=== PATIENT | female | born 1980 | race Caucasian/White ===

== ENCOUNTER 2018-04-12 18:06 | Emergency (ER) | payer MEDICAID, SELFPAY ==
[2018-04-12 18:18] VITALS: BP 162/104; PULSE 88; RESP 16; TEMP 36.7; O2SAT 96
--- NOTE | 2018-04-12 18:45 | ED.GENADUL_ITS ---
Discharge Plan Disposition Patient Disposition: HOME Condition: Improving Discharge Details Chief Complaint: Headache Clinical Impression: Headache, Witnessed seizure-like activity, Hypokalemia, Hypomagnesemia Reason For Visit: head ache Primary Care Provider: Elizabeth Benton ED Provider: Dale Walden Home Meds and New Rx's Prescriptions: Continued pantoprazole [Protonix] 20 MG tablet,delayed release (DR/EC) 40 mg PO DAILY RF: 0 zolpidem 10 MG tablet 10 mg PO HS PRN PRNRF: 0 Vyvanse 30 MG capsule 30 mg PO DAILY RF: 0 No Action verapamil 120 mg tablet extended release 120 mg PO DAILY Qty: 30 RF: 5 prochlorperazine maleate 5 mg tablet See Rx Instructions PO Q8H PRN Qty: 60 RF: 0 diazepam [Valium] 5 mg tablet 5 mg PO PRN PRN (Reason: sleep) Qty: 2 RF: 0 aripiprazole [Abilify] 10 mg tablet 15 mg PO HS RF: 0 ranitidine HCl 300 mg capsule 300 mg PO DAILY RF: 0 oxycodone 10 mg tablet 10 mg PO BID RF: 0 Narcan 4 mg/actuation spray,non-aerosol 1 spray LOGAN ONCE PRNRF: 0 Discharge Instructions Instructions: Hypokalemia (ED), Hypomagnesemia (ED), New-Onset Seizure in Adults (ED), General Headache (ED) Additional Instructions: No driving or operating heavy machinery until cleared to do so by your doctor or neurology. Please contact your primary care physician to arrange follow-up. Please follow-up with neurology. Call for an appointment. Return to the ER for any worsening or new concerning symptoms. Referrals: Elizabeth Benton [Primary Care Provider] - Kasey Quintanilla MD [ [facility] STAFF PHYSICIAN] - Discharge Data Discharge Date/Time-TO BE ENTERED AT DEPARTURE: 04/13/18 00:47 Medical Decision Making <Gilberto Berg MD - Last Filed: 05/11/18 21:44> 18:43 --38-year-old female here with headache for the the past 1.5 weeks after seizure like episode. No prior history of seizure. Consider mass vs less likely hemorrhage vs other. Plan to CT head. --CT reviewed and interpreted by me: Normal sinus rhythm 73 bpm, normal axis, nondiagnostic. 20:00 --CT head interpreted by radiology: No acute intracranial findings. --Labs reviewed and patient noted to have hypomagnesemia and hypokalemia. Patient to be given magnesium 2 g IV and potassium 20 mEq IV and 20 mEq orally. Patient was given Tylenol for headache. 22:53 --Patient was reassessed and notes headache resolved. 23:30 -- Patient reassessed and remains stable. Plan for repeat BMP after potassium infusion. <Dale Walden MD - Last Filed: 04/13/18 00:44> Received signout from Dr. Berg. Please see his note regarding details of initial history and medical decision making. Patient's potassium improved, she subjectively felt better. She will be discharged home. HPI <Gilberto Berg MD - Last Filed: 05/11/18 21:44> General Mode of arrival: ambulatory . Date/Time Provider Initiated Documentation: 04/12/18 18:26 . Limitations to Documentation: no limitations . Information obtained by: patient . HPI Narrative: 38-year-old female with multiple medical problems including history in the computer of anxiety, depression, conversion disorder, neuralgia, asthma, seen in the ED in the past for headache, presents with chief complaint of headache. Patient notes that about a week and a half ago, while in the shower she was observed to suddenly lose consciousness and have generalized full body shaking. Her significant other assisted her. She was unconscious for a couple minutes and then confused when she came to. She notes she has had persistent headache over the past week and a half since the seizure-like activity. She has had associated nausea and vomiting. She notes she is not able to tolerate any oral intake other than cheese puffs, she notes that she feels groggy. Headache is localized to the left frontal. Pain is moderate. No modifiers. No associated neck pain or stiffness. No fever. No rash. No CP or palpitations. No SOB. Related Data Home Medications Medication Instructions Recorded Confirmed pantoprazole [Protonix] 40 mg PO DAILY 10/01/16 04/22/18 Vyvanse 30 mg PO DAILY 05/26/17 04/22/18 zolpidem 10 mg PO HS PRN PRN 05/26/17 04/22/18 aripiprazole 10 mg tablet 15 mg PO HS tab 04/19/18 04/22/18 naloxone 4 mg/actuation nasal spray 1 spray LOGAN ONCE PRN 04/19/18 04/22/18 oxycodone 10 mg tablet 10 mg PO BID tab 04/19/18 04/22/18 ranitidine 300 mg capsule 300 mg PO DAILY 04/19/18 04/22/18 diazepam 5 mg tablet 5 mg PO PRN PRN #2 tab 04/22/18 04/22/18 prochlorperazine maleate 5 mg See Rx Instructions PO Q8H PRN #60 04/22/18 04/22/18 tablet tab verapamil ER (SR) 120 mg 120 mg PO DAILY #30 tab 04/22/18 04/22/18 tablet,extended release Previous Rx's Medication Instructions Recorded diazepam 5 mg tablet 5 mg PO PRN PRN #2 tab 04/22/18 prochlorperazine maleate 5 mg See Rx Instructions PO Q8H PRN #60 04/22/18 tablet tab verapamil ER (SR) 120 mg 120 mg PO DAILY #30 tab 04/22/18 tablet,extended release Allergies Allergy/AdvReac Type Severity Reaction Status Date / Time prednisone Allergy Intermediate Unverified 04/12/18 18:21 codeine AdvReac Mild Nausea Unverified 04/12/18 18:21 morphine AdvReac Mild Nausea Unverified 04/12/18 18:21 tramadol HCl [From Ultram] AdvReac Mild Nausea Unverified 04/12/18 18:21 tegaderm tape AdvReac Intermediate ariza my Uncoded 04/12/18 18:21 skin General Stated Complaint: Headache JOEL: 2 Review of Systems <Gilberto Berg MD - Last Filed: 05/11/18 21:44> Constitutional Reports as per HPI and Denies fever(s) Neurologic Reports as per HPI PFSH <Gilberto Berg MD - Last Filed: 05/11/18 21:44> Medical History ADD (attention deficit disorder) Abdominal pain Active asthma Affective bipolar disorder Amenorrhea CVA tenderness Causalgia of left upper extremity Cervical disc disease Chest pain at rest Chronic insomnia Chronic wrist pain Cold sore Conversion disorder Depression with anxiety Dizziness Essential tremor Gastritis Carcamo sign present Hydronephrosis Hyperreflexia Kidney stones Knee pain Left-sided thoracic back pain Memory loss Migraines Neuralgia Numbness and tingling Rectal bleeding Right arm weakness Speech problem Upper respiratory infection Ureteral calculi Surgical History Repair of umbilical hernia Social History household members: significant other and children number of children: 1 current occupational status: disabled Smoking and Tabacco status: Current every day tobacco type: cigarettes alcohol intake: never substance use type: does not use Exam <Gilberto Berg MD - Last Filed: 05/11/18 21:44> Const General: cooperative and no acute distress HENMT Head: normocephalic and atraumatic Mouth: moist mucous membranes Eyes Conjunctivae: normal conjunctivae Sclera: normal sclerae EOM: EOM intact bilaterally Neck Neck: trachea midline and supple Resp Auscultation: clear to auscultation bilaterally, no rales, no rhonchi and no wheezes Cardio Jugular venous pressure: no JVD Rate: regular rate and not tachycardic Rhythm: regular rhythm GI Palpation: soft, not firm, no guarding, no masses, not rigid and nontender Skin General skin exam: no rashes or lesions noted Neuro General: alert, awake, oriented x3 and tone normal Cranial Nerves: CN's II-XI intact bilaterally Cognition: normal cognition Speech: speech normal Gait: normal gait Motor: muscle tone normal throughout and strength 5/5 throughout Sensory Exam: no sensory deficits noted Other: tremor intermittent bilateral hands (patient notes chronic) Extrem General: no edema Psych Appearance: grossly normal Mental Status: mental status grossly normal Speech and Movement: speech and movement normal Course <Gilberto Berg MD - Last Filed: 05/11/18 21:44> Vital Signs Temperature 36.7 C 04/12/18 18:18 Pulse 88 04/12/18 18:18 Respiratory Rate 16 04/12/18 18:18 Blood Pressure 162/104 H 04/12/18 18:18 Pulse Oximetry 96 04/12/18 18:18 Temperature 36.7 C 04/12/18 18:18 Temperature Source Temporal Artery Scan 04/12/18 18:18 Pulse 88 04/12/18 18:18 Respiratory Rate 16 04/12/18 18:18 Blood Pressure 162/104 H 04/12/18 18:18 Pulse Oximetry 96 04/12/18 18:18 Oxygen Delivery Method Room Air 04/12/18 18:18 Oxygen Flow Rate 0 04/12/18 18:18 Sign Out <Gilberto Berg MD - Last Filed: 05/11/18 21:44> Sign Out Data: Sign Out Comment: Care signed out to Dr. Walden. Plan to follow-up on repeat BMP. If electrolytes improved, plan for close outpatient follow-up. Patient has scheduled followup this week. Given recent seizure like activity, will recommend outpatient neuro follow-up. Last updated by Gilberto Berg MD at 04/12/18 23:48
--- NOTE | 2018-04-12 19:35 | DI.CT_ITS ---
SYMPTOMS/DIAGNOSIS: LEFT FRONTAL PAIN, HEADACHE, SEIZURE 1-1/2 WEEKS AGO WITH WORSENING TREMORS SINCE NONCONTRAST HEAD CT: No intracranial hemorrhage, mass or infarct is seen. There is no evidence of skull fracture. The ventricles are normal in size. The sinuses and mastoid air cells appear clear where visualized. The orbits are unremarkable. IMPRESSION: Negative head CT.
--- NOTE | 2018-04-12 19:52 | DI.VRAD_ITS ---
EXAM: CT Head Without Contrast EXAM DATE/TIME: 04/12/2018 6:35 PM CLINICAL HISTORY: 38 years old, female; Pain; Headache; Headache not specified; Patient HX: Left frontal headache since seizure a week and a half ago, known tremors worsening since seizure TECHNIQUE: Axial computed tomography images of the head/brain without contrast. All CT scans at this facility use at least one of these dose optimization techniques: automated exposure control; mA and/or kV adjustment per patient size (includes targeted exams where dose is matched to clinical indication); or iterative reconstruction. Coronal and sagittal reformatted images were created and reviewed. COMPARISON: CT HEAD WITHOUT CONTRAST 12/20/2014 2:47 PM FINDINGS: There is no intracranial hemorrhage. There is no mass effect or midline shift. The ventricles and sulci are appropriate in size and configuration for age. Normal mendoza white differentiation. The calvarium is intact. IMPRESSION: No acute intracranial findings. Dictated and Authenticated by: Nilo Verde MD. Ordering:CARMEL Macias MD
[2018-04-12 19:59] LABS: Abs Immature Grans 0.01 k/cumm (0.0-0.09); Absolute Basophil Count 0.03 k/cumm (0.0-0.2); Absolute Eosinophil Count 0.31 k/cumm (0.0-0.7); Absolute Lymphocyte Count 2.76 k/cumm (1.2-3.4); Absolute Monocyte Count 0.79 k/cumm (0.11-0.7); Absolute Neutrophil Count 5.88 k/cumm (1.2-6.7); Basophils % 0.3; Eosinophils % 3.2; HCT 41.1 % (36.0-46.0); HGB 13.8 g/dL (12.0-15.5); Immature Grans % 0.1; Lymphocytes % 28.2; Mean Corp. HGB Concentration 33.6 g/dL (32.0-36.0); Mean Corpuscular Hemoglobin 30.5 pg (27.0-33.0); Mean Corpuscular Volume 90.7 fL (80-95); Mean Platelet Volume 10.2 fL (8.0-11.0); Monocytes % 8.1; Neutrophils % 60.1; Platelet Count 279 x1000/uL (130-400); RBC 4.53 m/cumm (4.00-5.20); RBC Distribution Width 13.1 % (11.7-14.6); White Blood Cell Count 9.78 k/cumm (4.4-10.8)
[2018-04-12 20:09] LABS: ALT 37 U/L (12-78); AST 26 U/L (15-37); Albumin 3.5 g/dL (3.4-5.0); Alkaline Phosphatase 94 U/L (46-116); Anion Gap 10.8 mmol/L (3-11); BUN 10 mg/dL (7-18); Bilirubin, Total 0.4 mg/dL (0.2-1.0); CO2 28.2 mmol/L (21.0-32.0); CREATININE 1.08 mg/dL (0.55-1.02); Calcium 9.6 mg/dL (8.5-10.1); Chloride 105 mmol/L (98-107); Estimated GFR 56.19 (mL/min/1.73m2); Glucose 93 mg/dL (70-100); Magnesium 1.5 mg/dL (1.8-2.4); Sodium 144 mmol/L (136-145); Total Protein 7.4 g/dL (6.4-8.2)
[2018-04-12 20:15] LABS: Potassium 2.8 mmol/L (3.5-5.1)
[2018-04-12 20:21] LABS: Bilirubin Small (Negative); Blood Negative (Negative); Clarity Clear; Glucose Negative (Negative); Ketones Trace mg/dL (Negative); Leukocyte Esterase Negative (Negative); Nitrite Negative (Negative); Specific Gravity >= 1.030 (1.005-1.025); Urobilinogen 0.2 EU/dL (Up TO 0.2)
[2018-04-12 20:33] LABS: Bacteria Moderate HPF (Negative); C & S Indicated? No/Sq. Contamination; Casts Negative LPF (Negative); Crystals Negative HPF (Negative); Epithelial Cells Many HPF (Negative); Mucus Negative (Negative); RBC Negative (0-2); WBC 20-50 HPF (0-5)
[2018-04-12 20:40] LABS: *AMPHETAMINES SCREEN URINE Negative (Negative); *BARBITURATES SCREEN URINE Negative (Negative); *BENZODIAZEPINES SCREEN URINE Negative (Negative); Cannabinoids THC Negative (Negative); Cocaine Screen,Urine Negative (Negative); METHADONE URINE SCREEN Negative (Negative); OPIATES URINE SCREEN POSITIVE (Negative)
[2018-04-12 20:41] LABS: Tricyclic Antidepressants POSITIVE (Negative)
[2018-04-12] MEDS: MAGNESIUM SULFATE 2 GM/50 ML BAG IVPB (20:42)
[2018-04-12] MEDS: Potassium Chloride 10 MEQ TABCR 20 MEQ PO (21:44)
[2018-04-12] MEDS: Acetaminophen 325 MG TAB 650 MG PO (21:44)
[2018-04-12] MEDS: POTASSIUM CHLORIDE 20 MEQ/100 ML BAG 50 MEQ IVPB (21:44)
[2018-04-13 00:32] LABS: Anion Gap 11.1 mmol/L (3-11); BUN 9 mg/dL (7-18); CO2 26.9 mmol/L (21.0-32.0); CREATININE 1.07 mg/dL (0.55-1.02); Calcium 9.1 mg/dL (8.5-10.1); Chloride 105 mmol/L (98-107); Glucose 102 mg/dL (70-100); Potassium 3.1 mmol/L (3.5-5.1); Sodium 143 mmol/L (136-145)
[2018-04-13 00:45] VITALS: PULSE 88; RESP 16; TEMP 36.9; O2SAT 99
--- NOTE | 2018-04-13 09:15 | PDOC.ERCMPRO ---
Care Management Progress Note 04/13-Dr. Estevan Berg requested assistance with a neurology f/u as soon as possible for new onset seizures. Referral faxed to [facility] Neurology this am.
== END 2018-04-13 00:47 | disposition home or self-care (01) ==
PROVIDERS: Student in an Organized Health Care Education/Training Program; Emergency Provider Emergency Medicine; PCP Physician Assistant Medical
DX: R51 Headache (principal); R56.9 Unspecified convulsions; E87.6 Hypokalemia; E83.42 Hypomagnesemia
CPT/HCPCS: 80048; 80053; 80307; 96365; 96366; 96368; 99284; 70450; 81003; 81015; 83735; 85025; J3480

== ENCOUNTER 2018-05-04 01:15 | Outpatient (CLI) | payer MEDICAID, SELFPAY ==
--- NOTE | 2018-05-11 14:33 | PDOC.EEG ---
EEG: [facility] Department of Neurology EEG REPORT Date of Recordin05/04/18 Interpreting Physician: Dr. Kasey Quintanilla PCP/Referring Provider: JO Lyle Reason for study: Ms. Jhaveri is a 38 year-old woman with a recent event with loss of consciousness concerning for seizure. Current Medications: pantoprazole [Protonix] 40 mg PO DAILY 10/01/16 Vyvanse 30 mg PO DAILY 05/26/17 zolpidem 10 mg PO HS PRN PRN 05/26/17 aripiprazole 10 mg tablet 15 mg PO HS tab 04/19/18 naloxone 4 mg/actuation nasal spray 1 spray LOGAN ONCE PRN 04/19/18 oxycodone 10 mg tablet 10 mg PO BID tab 04/19/18 ranitidine 300 mg capsule 300 mg PO DAILY 04/19/18 diazepam 5 mg tablet 5 mg PO PRN PRN #2 tab 04/22/18 prochlorperazine maleate 5 mg tablet See Rx Instructions PO Q8H PRN #60 tab 04/22/18 verapamil ER (SR) 120 mg tablet,extended release 120 mg PO DAILY #30 tab 04/22/18 METHODS: A 21 channel digitized electroencephalogram was performed in the [facility] Clinical Neurophysiology Laboratory. The 10/20 international system of electrode placement was used and bipolar and referential electrode montages were recorded. In addition to EEG the patient was monitored for EKG and lateral/vertical eye movements. Activation procedures of photic stimulation and hyperventilation were performed if applicable. Video was used during activation procedures and during events where applicable. The duration of the recording was 30 minutes. DESCRIPTION OF EEG: The patient was noted to be awake and drowsy during the recording. During maximal wakefulness a 9-Hz posterior background rhythm was present which was well-modulated, symmetrical, reactive to eye opening, and of moderate voltage. With eye opening the background activity changed to a low voltage mixture of alpha, beta, and occasional theta range frequencies. Faster frequencies were present in the bilateral anterior head regions. There was a normal anterior-posterior voltage gradient. During drowsiness, there was attenuation of the posterior dominant background rhythm and vertex waves. No stage II sleep was recorded. There were rare, poorly formed, right temporal (T4) sharp waves that were not clearly epileptiform. Activating Procedures: Photic stimulation was performed which produced no posterior driving response. Hyperventilation was performed with moderate effort and produced no physiological slowing of the background. EKG: EKG revealed normal sinus rhythm. INTERPRETATION: This EEG is normal during the awake and drowsy states as well as during photic stimulation and hyperventilation. PRIOR EEG: none CLINICAL CORRELATION: No focal regions of cerebral dysfunction or epileptiform activity was present. No sleep was recorded during the study which reduces the sensitivity of the exam. If seizure remains a part of the differential, consider a repeat sleep-deprived EEG or overnight ambulatory EEG. Epilepsy remains a clinical diagnosis and a normal EEG does not rule out epilepsy. Clinical correlation is advised. Kasey Quintanilla MD
== END 2018-05-04 01:35 ==
PROVIDERS: PCP Physician Assistant Medical; Visit Provider Psychiatry & Neurology Neurology
DX: R68.89 Other general symptoms and signs (principal)

== ENCOUNTER 2018-05-14 00:05 | Outpatient (CLI) | payer MEDICAID, SELFPAY ==
--- NOTE | 2018-05-14 09:21 | DI.MRI_ITS ---
SYMPTOMS/DIAGNOSIS: NEW SEIZURES, UNSPECIFIED CONVULSIONS, R56.9 BRAIN MRI: The examination was conducted according to the usual protocol without contrast. Review of the multi planar sequences reveals no signal abnormality involving the infra/supratentorial portions of the brain. The ventricles are normal and a normal flow void is noted in the carotid vessels. SUMMARY: Normal Brain MRI.
== END 2018-05-14 00:25 ==
PROVIDERS: PCP Physician Assistant Medical; Visit Provider Psychiatry & Neurology Neurology
DX: R56.9 Unspecified convulsions (principal)
CPT/HCPCS: 70551; 95816

== ENCOUNTER 2018-07-17 21:04 | Emergency (ER) | payer MEDICAID, SELFPAY ==
[2018-07-17 21:11] VITALS: BP 169/126; PULSE 94; RESP 18; TEMP 36.6; O2SAT 98
[2018-07-17 21:29] VITALS: RESP 18
--- NOTE | 2018-07-17 21:34 | DI.CT_ITS ---
SYMPTOMS/DIAGNOSIS: LEFT > RIGHT FLANK PAIN RENAL COLIC CT: Comparison is made with May,. There are tiny nonobstructing bilateral renal calculi, right greater than left. There is mild dilatation of the right ureter. No ureteral calcification is seen. This could be secondary to a recently passed stone. The urinary bladder is nearly empty. There is a small right ovarian cyst. Small uterine fibroids are noted. The liver shows fatty infiltration. The patient is status post cholecystectomy. The spleen, pancreas and adrenals are unremarkable. There has been a prior midline abdominal hernia repair. No bowel dilatation or inflammatory changes are seen. The patient is status post appendectomy. There is no free air or free fluid. IMPRESSION: Minimal right hydronephrosis. The findings could be secondary to a recently passed stone. There are tiny bilateral nonobstructing calculi, significantly decreasing when compared with the previous exam.
--- NOTE | 2018-07-17 21:37 | ED.GENADUL_ITS ---
Discharge Plan Disposition Patient Disposition: HOME Condition: Improving Discharge Details Chief Complaint: GenMedical Clinical Impression: Urinary tract infection Primary Care Provider: Elizabeth Benton ED Provider: Dale Walden Home Meds and New Rx's Prescriptions: New cephalexin 500 mg capsule 500 mg PO TID 7 Days Qty: 21 RF: 0 Continued verapamil 120 mg tablet extended release 120 mg PO DAILY Qty: 30 RF: 5 prochlorperazine maleate 5 mg tablet See Rx Instructions PO Q8H PRN Qty: 60 RF: 0 aripiprazole [Abilify] 10 mg tablet 15 mg PO HS RF: 0 ranitidine HCl 300 mg capsule 300 mg PO DAILY RF: 0 oxycodone 10 mg tablet 5 mg PO BID RF: 0 Narcan 4 mg/actuation spray,non-aerosol 1 spray LOGAN ONCE PRNRF: 0 pantoprazole [Protonix] 20 MG tablet,delayed release (DR/EC) 40 mg PO DAILY RF: 0 alprazolam [Xanax] 1 mg Tablet 1 mg PO HS RF: 0 zolpidem 10 MG tablet 10 mg PO HS PRN PRNRF: 0 Vyvanse 30 MG capsule 30 mg PO DAILY RF: 0 Discharge Instructions Instructions: Urinary Tract Infection in Women (ED) Additional Instructions: Small, frequent sips of fluids to maintain hydration. Return if you have increasing pain, vomiting, or any other acute concerns. May continue your medications. Including your previously prescribed oxycodone. Take antibiotics as prescribed. Medical Decision Making 38-year-old female presents from home with left greater than right flank pain. Began hours ago. She is a history of kidney stones and is been followed by Dr. Ross. She is in some distress but afebrile. Differential diagnosis includes renal colic, pyelonephritis, other pathology including bowel obstruction. IV placed, labs obtained, patient given fluids and analgesic. She is referred for imaging. Labs reveal a white blood cell count of 11, otherwise unremarkable hematocrit and platelets. Chemistries with mild hypokalemia which she has had chronically. Urinalysis with small blood, large leuk esterase, negative nitrates, greater than [address] images reveal punctate nonobstructing right renal calculi. There is minimal right hydronephrosis questionably from recently passed stone or possibly a small stone in the distal ureter per radiology. Most consistent with acute infectious symptoms. Patient given a dose of ceftriaxone and will place her on oral antibiotics. She understands return precautions. She is stable and improved. HPI General Mode of arrival: ambulatory . Date/Time Provider Initiated Documentation: 07/17/18 21:29 . Limitations to Documentation: no limitations . Information obtained by: patient . History of Present Illness 38 year old F presents to the emergency department with the chief complaint of Left flank pain over hours today, described as moderate, and is localized to the back and left. Patient reports no radiation. Patient started experiencing this hour(s) and it has been intermittent. No relieving factors improve symptom(s), No exacerbating factors reported . Patient notes other (Nauseated without vomiting). Patient did receive the following treatments prior to arrival, none Related Data Home Medications Medication Instructions Recorded Confirmed pantoprazole [Protonix] 40 mg PO DAILY 10/01/16 07/17/18 Vyvanse 30 mg PO DAILY 05/26/17 04/22/18 zolpidem 10 mg PO HS PRN PRN 05/26/17 07/17/18 aripiprazole 10 mg tablet 15 mg PO HS tab 04/19/18 04/22/18 naloxone 4 mg/actuation nasal spray 1 spray LOGAN ONCE PRN 04/19/18 07/17/18 oxycodone 10 mg tablet 5 mg PO BID tab 04/19/18 07/17/18 ranitidine 300 mg capsule 300 mg PO DAILY 04/19/18 07/17/18 prochlorperazine maleate 5 mg See Rx Instructions PO Q8H PRN #60 04/22/18 07/17/18 tablet tab verapamil ER (SR) 120 mg 120 mg PO DAILY #30 tab 04/22/18 07/17/18 tablet,extended release alprazolam [Xanax] 1 mg PO HS 07/17/18 07/17/18 cephalexin 500 mg PO TID 7 Days #21 cap 07/17/18 Previous Rx's Medication Instructions Recorded prochlorperazine maleate 5 mg See Rx Instructions PO Q8H PRN #60 04/22/18 tablet tab verapamil ER (SR) 120 mg 120 mg PO DAILY #30 tab 04/22/18 tablet,extended release cephalexin 500 mg PO TID 7 Days #21 cap 07/17/18 Allergies Allergy/AdvReac Type Severity Reaction Status Date / Time prednisone Allergy Intermediate Unverified 07/17/18 21:14 codeine AdvReac Mild Nausea Unverified 07/17/18 21:14 morphine AdvReac Mild Nausea Unverified 07/17/18 21:14 tramadol HCl [From Ultram] AdvReac Mild Nausea Unverified 07/17/18 21:14 tegaderm tape AdvReac Intermediate ariza my Uncoded 07/17/18 21:14 skin General Stated Complaint: GenMedical JOEL: 3 Review of Systems Review of Systems No fever. Continues to urinate. No fall or injury. 8 systems reviewed and otherwise neg [facility] Medical History Chronic pain (Chronic) Depression with anxiety Chronic insomnia ADD (attention deficit disorder) Affective bipolar disorder Conversion disorder Gastritis Bilateral kidney stones (Acute) Headache, chronic migraine without aura (Chronic) Chronic headache (Chronic) Medication overuse headache (Chronic) Psychogenic tremor (Chronic) Abdominal pain (Resolved) CVA tenderness (Resolved) Causalgia of left upper extremity (Resolved) Chest pain at rest (Resolved) Chronic wrist pain (Resolved) Cold sore (Resolved) Dizziness (Resolved) Essential tremor (Resolved) Carcamo sign present (Resolved) Hydronephrosis (Resolved) Hyperreflexia (Resolved) Kidney stones (Resolved) Knee pain (Resolved) Left-sided thoracic back pain (Resolved) Memory loss (Resolved) Migraines (Resolved) Neuralgia (Resolved) Numbness and tingling (Resolved) Right arm weakness (Resolved) Speech problem (Resolved) Upper respiratory infection (Resolved) Ureteral calculi (Resolved) Active asthma Amenorrhea Cervical disc disease Rectal bleeding Surgical History S/P appendectomy (Acute) S/P cholecystectomy (Acute) S/P knee surgery (Acute) Repair of umbilical hernia Family History Father Cerebral aneurysm Social History Smoking/Tobacco Use Status: Current every day Tobacco Type: cigarettes Alcohol Intake: never Drug use: Never Substance use type: does not use Household members: significant other and children Number of Children: 1 Do you feel safe at home: Yes Do you feel safe in your relationship?: Yes Exam Narrative Exam Narrative: GEN: awake, alert, oriented 3. Pleasant, well groomed, interactive. HEAD: Normocephalic, atraumatic ENT: Mucous membranes moist, oropharynx unremarkable, External ear exam unremarkable EYES: PERRL, EOMI NECK: Full ROM, no RASHAWN, no menigismus CHEST/RESP: Nontender, clear to auscultation bilateral, no wheeze/rhonchi/rales CARDIOVASCULAR: RRR, no murmur, rub regino. 2+ Rad pulse bilateral ABDOMEN: Soft, minimal tenderness left upper abdomen and left flank., no mass. +Bowel sounds EXT: Full ROM, no edema, no rash Neuro: Grossly normal neurologic exam, conversant, interactive. Psych: Speech fluent, thoughts congruent, affect normal Course Vital Signs Temperature 36.6 C 07/17/18 21:11 Pulse 94 H 07/17/18 21:11 Respiratory Rate 18 07/17/18 21:11 Blood Pressure 169/126 H 07/17/18 21:11 Pulse Oximetry 98 07/17/18 21:11 Temperature 36.6 C 07/17/18 21:11 Temperature Source Skin 07/17/18 21:11 Pulse 94 H 07/17/18 21:11 Respiratory Rate 18 07/17/18 21:29 Respiratory Effort Non-Labored 07/17/18 21:29 Respiratory Depth Normal 07/17/18 21:29 Respiratory Pattern Normal 07/17/18 21:29 Blood Pressure 169/126 H 07/17/18 21:11 Blood Pressure Position Sitting 07/17/18 21:11 Pulse Oximetry 98 07/17/18 21:11 Oxygen Delivery Method Room Air 07/17/18 21:11 Oxygen Flow Rate 0 07/17/18 21:11 Pain Level 9 07/17/18 21:32
[2018-07-17] MEDS: Ketorolac 30 MG/ML VIAL IVP (21:40)
[2018-07-17 21:48] LABS: Abs Immature Grans 0.03 k/cumm (0.0-0.09); Absolute Eosinophil Count 0.27 k/cumm (0.0-0.7); Absolute Lymphocyte Count 3.28 k/cumm (1.2-3.4); Basophils % 0.4; Eosinophils % 2.4; HCT 41.6 % (36.0-46.0); HGB 13.9 g/dL (12.0-15.5); Immature Grans % 0.3; Lymphocytes % 28.8; Mean Corp. HGB Concentration 33.4 g/dL (32.0-36.0); Mean Corpuscular Hemoglobin 31.1 pg (27.0-33.0); Mean Corpuscular Volume 93.1 fL (80-95); Mean Platelet Volume 10.1 fL (8.0-11.0); Monocytes % 7.5; Neutrophils % 60.6; Platelet Count 296 x1000/uL (130-400); RBC 4.47 m/cumm (4.00-5.20); RBC Distribution Width 13.5 % (11.7-14.6)
[2018-07-17 21:48] LABS: Bilirubin Negative (Negative); Blood Small (Negative); Clarity Sl Cloudy; Glucose Negative (Negative); Ketones Negative (Negative); Leukocyte Esterase Large (Negative); Nitrite Negative (Negative); Urobilinogen 0.2 EU/dL (Up TO 0.2)
[2018-07-17 21:56] LABS: Absolute Basophil Count 0.05 k/cumm (0.0-0.2); Absolute Monocyte Count 0.86 k/cumm (0.11-0.7); Absolute Neutrophil Count 6.91 k/cumm (1.2-6.7)
[2018-07-17] MEDS: Normal Saline 1,000 ML 1000 ML IV (22:05)
[2018-07-17 22:07] LABS: Bacteria Moderate HPF (Negative); C & S Indicated? Yes; Casts Negative LPF (Negative); Crystals Negative HPF (Negative); Epithelial Cells Negative HPF (Negative); Mucus Negative (Negative); Other Cells Negative (Negative); RBC Negative (0-2); WBC >50 HPF (0-5)
[2018-07-17 22:09] VITALS: BP 181/118; PULSE 85; RESP 18; TEMP 36.5; O2SAT 96
[2018-07-17 22:09] LABS: ALT 29 U/L (12-78); AST 17 U/L (15-37); Albumin 3.4 g/dL (3.4-5.0); Alkaline Phosphatase 97 U/L (46-116); Anion Gap 9.2 mmol/L (3-11); BUN 10 mg/dL (7-18); Bilirubin, Total 0.2 mg/dL (0.2-1.0); CO2 27.8 mmol/L (21.0-32.0); CREATININE 0.91 mg/dL (0.55-1.02); Calcium 8.6 mg/dL (8.5-10.1); Chloride 104 mmol/L (98-107); Glucose 98 mg/dL (70-100); Potassium 3.2 mmol/L (3.5-5.1); Sodium 141 mmol/L (136-145); Total Protein 7.2 g/dL (6.4-8.2)
[2018-07-17] MEDS: HYDROmorphone 2 MG/ML VIAL 1 MG IVP (22:15)
--- NOTE | 2018-07-17 22:22 | DI.VRAD_ITS ---
EXAM: CT Abdomen and Pelvis Without Contrast EXAM DATE/TIME: 07/17/2018 9:35 PM CLINICAL HISTORY: 38 years old, female; Other: RT and lt flank pain TECHNIQUE: Imaging protocol: Axial computed tomography images of the abdomen and pelvis without contrast. Coronal and sagittal reformatted images were created and reviewed. COMPARISON: CT RENAL COLIC WO CONTRAST 05/24/2017 4:46 PM FINDINGS: ABDOMEN: Liver: No suspicious lesions. Gallbladder and bile ducts: Cholecystectomy. Pancreas: Unremarkable. Spleen: No suspicious lesions. Adrenals: Unremarkable. No suspicious nodule. Kidneys and ureters: Punctate nonobstructing right renal calculi. Minimal right hydronephrosis. Stomach and bowel: Unremarkable. No inflammed or dilated loops. Appendix: No evidence of appendicitis. PELVIS: Bladder: Unremarkable as visualized. Reproductive: Unremarkable as visualized. ABDOMEN and PELVIS: Intraperitoneal space: No free air. No significant fluid collection. Bones/joints: No acute fracture. No dislocation. Soft tissues: Unremarkable. Vasculature: Unremarkable. Lymph nodes: Unremarkable. IMPRESSION: Right-sided nephrolithiasis. Minimal right hydronephrosis likely from a recently passed stone or possibly a small poorly calcified stone in the distal ureter. Dictated and Authenticated by: Juan Lugo MD. Ordering:MEDINA Hunter MD
[2018-07-17] MEDS: cefTRIAXone 1 GM/50 ML BAG IVPB (22:42)
[2018-07-17 22:46] VITALS: BP 171/117; PULSE 78; RESP 16; TEMP 36.7; O2SAT 96
[2018-07-17 23:17] VITALS: BP 161/112; PULSE 80; RESP 16; TEMP 36.6; O2SAT 96
== END 2018-07-17 23:08 | disposition home or self-care (01) ==
PROVIDERS: Emergency Provider Emergency Medicine; PCP Physician Assistant Medical
DX: N39.0 Urinary tract infection, site not specified (principal); B96.20 Unspecified Escherichia coli [E. coli] as the cause of diseases classified elsewhere; E87.6 Hypokalemia; Z87.442 Personal history of urinary calculi
CPT/HCPCS: 36415; 80053; 87077; 96361; 96365; 96375; 99284; 74176; 81003; 81015; 85025; 87086; 87186; J0696; J1885

== ENCOUNTER 2018-07-28 07:18 | Emergency (ER) | payer MEDICAID, SELFPAY ==
[2018-07-28 07:26] VITALS: BP 186/121; PULSE 89; RESP 16; TEMP 36.6; O2SAT 98
[2018-07-28 07:33] LABS: Bilirubin Negative (Negative); Blood Large (Negative); Clarity Sl Cloudy; Glucose Negative (Negative); Ketones Negative (Negative); Leukocyte Esterase Large (Negative); Nitrite Negative (Negative); Urobilinogen 0.2 EU/dL (Up TO 0.2)
[2018-07-28 07:58] LABS: WBC >50 HPF (0-5)
--- NOTE | 2018-07-28 07:58 | ED.GENADUL_ITS ---
Discharge Plan Disposition Patient Disposition: HOME Condition: Stable Discharge Details Chief Complaint: Abd Prob Clinical Impression: Right sided abdominal pain, Right kidney stone Primary Care Provider: Elizabeth Benton ED Provider: Rufus Sinclair Home Meds and New Rx's Prescriptions: New tamsulosin [Flomax] 0.4 mg capsule 0.4 mg PO DAILY Qty: 14 RF: 0 ondansetron 4 mg tablet,disintegrating 4 mg PO QID PRN (Reason: nausea) Qty: 30 RF: 0 Continued verapamil 120 mg tablet extended release 120 mg PO DAILY Qty: 30 RF: 5 prochlorperazine maleate 5 mg tablet See Rx Instructions PO Q8H PRN Qty: 60 RF: 0 aripiprazole [Abilify] 10 mg tablet 15 mg PO HS RF: 0 ranitidine HCl 300 mg capsule 300 mg PO DAILY RF: 0 oxycodone 10 mg tablet 5 mg PO BID RF: 0 Narcan 4 mg/actuation spray,non-aerosol 1 spray LOGAN ONCE PRNRF: 0 pantoprazole [Protonix] 20 MG tablet,delayed release (DR/EC) 40 mg PO DAILY RF: 0 alprazolam [Xanax] 1 mg Tablet 1 mg PO HS RF: 0 zolpidem 10 MG tablet 10 mg PO HS PRN PRNRF: 0 Vyvanse 30 MG capsule 30 mg PO DAILY RF: 0 Discharge Instructions Instructions: Kidney Stones (ED) Additional Instructions: you should be contacted with an appointment with urology if you have fevers, persistent vomit return to the emergency department you can take 1000mg tylenol and 600mg ibuprofen every 6 hours for pain as needed Medical Decision Making 38 yo female with hx of chronic neck pain on oxycodone, add, kidney stones ,who was dx'd with uti 2 weeks ago and finished abx continues with right sided abodminal pain and nausea, vomit yesterday. She has ruq and rlq tenderness, states she has had her appendix out years ago. no guarding on my initial exam. No cva tenderness. Given locaation of her pain will eval for pancreatitis and obtain ct with contrast to eval for possible cholecystitis vs sbo labs unremarkable other than K of 2.9 which was repleted orally without incident. CT shows kidney stone and also cystitis, she has no fevers and is hd stable so doub tinfected stone, will tx with abx. Will have her f/u with urology within 2 weeks and return precautions given Differential Diagnosis cholecystitis, kidney stone, pancreatitis Medical Records Medical records reviewed: Yes I reviewed the patient's medical records. Imaging Data Radiologic Study: Attestation: I personally reviewed and interpreted this imaging study as follows: Imaging: CT Scan Radiologist's impression: IMPRESSION: 1. Mild right-sided hydronephrosis and hydroureter noted to the level of an obstructing distal right ureteral stone measuring 2 x 2 mm just proximal to the UVJ . 2. Equivocal cystitis. 3. Colonic wall thickening is compatible with a nonspecific colitis, either infectious or inflammatory. Lab Data Lab results reviewed: Yes I reviewed the patient's lab results. HPI General Mode of arrival: ambulatory . Date/Time Provider Initiated Documentation: 07/28/18 07:46 . Limitations to Documentation: no limitations . Information obtained by: patient . History of Present Illness 38 year old F presents to the emergency department with the chief complaint of right sided abominal pain, described as moderate, Quality is described as stabbing and aching, and is localized to the abdomen. Patient reports no radiation. Patient started experiencing this week(s) (2) and it has been intermittent. No relieving factors improve symptom(s), No exacerbating factors reported . Patient notes nausea/vomiting. Patient did receive the following treatments prior to arrival, other (presribed oxycodone) Related Data Home Medications Medication Instructions Recorded Confirmed pantoprazole [Protonix] 40 mg PO DAILY 10/01/16 07/28/18 Vyvanse 30 mg PO DAILY 05/26/17 07/28/18 zolpidem 10 mg PO HS PRN PRN 05/26/17 07/28/18 aripiprazole 10 mg tablet 15 mg PO HS tab 04/19/18 07/28/18 naloxone 4 mg/actuation nasal spray 1 spray LOGAN ONCE PRN 04/19/18 07/28/18 oxycodone 10 mg tablet 5 mg PO BID tab 04/19/18 07/28/18 ranitidine 300 mg capsule 300 mg PO DAILY 04/19/18 07/28/18 prochlorperazine maleate 5 mg See Rx Instructions PO Q8H PRN #60 04/22/18 07/28/18 tablet tab verapamil ER (SR) 120 mg 120 mg PO DAILY #30 tab 04/22/18 07/28/18 tablet,extended release alprazolam [Xanax] 1 mg PO HS 07/17/18 07/28/18 ondansetron 4 mg PO QID PRN #30 tab 07/28/18 tamsulosin [Flomax] 0.4 mg PO DAILY #14 cap 07/28/18 Previous Rx's Medication Instructions Recorded prochlorperazine maleate 5 mg See Rx Instructions PO Q8H PRN #60 04/22/18 tablet tab verapamil ER (SR) 120 mg 120 mg PO DAILY #30 tab 04/22/18 tablet,extended release ondansetron 4 mg PO QID PRN #30 tab 07/28/18 tamsulosin [Flomax] 0.4 mg PO DAILY #14 cap 07/28/18 Allergies Allergy/AdvReac Type Severity Reaction Status Date / Time prednisone Allergy Intermediate Unverified 07/28/18 07:31 codeine AdvReac Mild Nausea Unverified 07/28/18 07:31 morphine AdvReac Mild Nausea Unverified 07/28/18 07:31 tramadol HCl [From Ultram] AdvReac Mild Nausea Unverified 07/28/18 07:31 tegaderm tape AdvReac Intermediate ariza my Uncoded 07/28/18 07:31 skin General Stated Complaint: Abd Prob JOEL: 3 Review of Systems Review of Systems All systems reviewed & are unremarkable except as noted in HPI and below Constitutional Denies chills and Denies fever(s) ENT Denies change in voice Cardiovascular Denies chest pain and Denies dyspnea Respiratory Denies dyspnea Integumentary/Breasts Denies rash PFSH Social History Smoking/Tobacco Use Status: Current every day Tobacco Type: cigarettes Years smoked: 20 Alcohol Intake: never Drug use: Never Substance use type: does not use Household members: significant other and children Number of Children: 1 Do you feel safe at home: Yes Do you feel safe in your relationship?: Yes Exam Const General: no acute distress Orientation: alert HENMT Head: normal to inspection Ears: external ears normal General nose exam: external nose normal Mouth: moist mucous membranes Eyes General: appearance normal, both eyes and all related structures Neck Neck: normal visual inspection Resp Effort & Inspection: normal respiratory effort and able to speak in complete sentences Cardio Rate: regular rate GI Palpation: soft Skin General skin exam: no rashes or lesions noted Neuro General: alert and oriented x3 Extrem General: normal to inspection Psych Mental Status: mental status grossly normal Course Vital Signs Temperature 36.6 C 07/28/18 07:26 Pulse 89 07/28/18 07:26 Respiratory Rate 16 07/28/18 07:26 Blood Pressure 186/121 H 07/28/18 07:26 Pulse Oximetry 98 07/28/18 07:26 Temperature 36.6 C 07/28/18 07:26 Temperature Source Skin 07/28/18 07:26 Pulse 89 07/28/18 07:26 Respiratory Rate 16 07/28/18 07:26 Respiratory Effort Non-Labored 07/28/18 07:26 Blood Pressure 186/121 H 07/28/18 07:26 Blood Pressure Position Sitting 07/28/18 07:26 Pulse Oximetry 98 07/28/18 07:26 Oxygen Delivery Method Room Air 07/28/18 07:26 Oxygen Flow Rate 0 07/28/18 07:26 Pain Level 7 07/28/18 07:26 Lab/Test Results Lab/Test Results: Laboratory Tests Range/Units 07/28/18 07/28/18 07:28 07:53 Troponin I Cancelled Urine Color (Yellow) Yellow Urine Clarity Sl cloudy Urine pH (5-8) 6.0 Ur Specific [place] (1.005-1.025) 1.020 Urine Protein (Negative) mg/dL 100 H Urine Ketones (Negative) mg/dL Negative Urine Blood (Negative) Large H Urine Nitrite (Negative) Negative Urine Bilirubin (Negative) Negative Urine Urobilinogen (Up TO 0.2) EU/dL 0.2 Ur Leukocyte Esterase (Negative) Large H Urine Glucose (Negative) mg/dL Negative
[2018-07-28 07:59] LABS: Bacteria Few HPF (Negative); C & S Indicated? Yes; Casts Negative LPF (Negative); Crystals Negative HPF (Negative); Epithelial Cells Few HPF (Negative); Mucus Trace (Negative); RBC >50 (0-2)
[2018-07-28] MEDS: Normal Saline 1,000 ML 1000 ML IV (08:00)
[2018-07-28] MEDS: Ondansetron 4 MG/2 ML VIAL IVP (08:00)
[2018-07-28] MEDS: Ketorolac 15 MG/ML VIAL IVP (08:05)
[2018-07-28] MEDS: Omnipaque 350 MG/ML 100 ML BTL IJ (08:12)
[2018-07-28] MEDS: Normal Saline Flush 10 ML SYR IVP (08:16)
[2018-07-28 08:18] LABS: Abs Immature Grans 0.02 k/cumm (0.0-0.09); Absolute Basophil Count 0.02 k/cumm (0.0-0.2); Absolute Eosinophil Count 0.42 k/cumm (0.0-0.7); Absolute Lymphocyte Count 2.55 k/cumm (1.2-3.4); Absolute Monocyte Count 0.52 k/cumm (0.11-0.7); Basophils % 0.2; Eosinophils % 4.5; HCT 43.6 % (36.0-46.0); HGB 14.5 g/dL (12.0-15.5); Immature Grans % 0.2; Mean Corp. HGB Concentration 33.3 g/dL (32.0-36.0); Mean Corpuscular Hemoglobin 30.8 pg (27.0-33.0); Mean Corpuscular Volume 92.6 fL (80-95); Mean Platelet Volume 10.3 fL (8.0-11.0); Monocytes % 5.5; Neutrophils % 62.6; Platelet Count 245 x1000/uL (130-400); RBC 4.71 m/cumm (4.00-5.20); RBC Distribution Width 13.4 % (11.7-14.6); White Blood Cell Count 9.43 k/cumm (4.4-10.8)
--- NOTE | 2018-07-28 08:25 | DI.CT_ITS ---
SYMPTOMS/DIAGNOSIS: RIGHT-SIDED ABDOMINAL PAIN CT OF THE ABDOMEN AND PELVIS: Comparison is made with renal colic CT dated July,. The heart size is normal. The lung bases are clear. The liver again shows fatty infiltration. The patient is status post cholecystectomy. There is no biliary dilatation. The pancreas, kidneys and adrenals are unremarkable. There is mild right hydronephrosis. There is a tiny density seen at the distal right ureter measuring 1 mm, which could represent the obstructing stone. A few other tiny nonobstructing stones are seen in the right kidney. There is a single tiny nonobstructing stone in the lower pole of the left kidney. The degree of hydronephrosis has increased when compared with the previous exam. The urinary bladder is only mildly distended. There is a question of wall thickening. The uterus and ovaries are unremarkable. There is some fatty infiltration throughout the wall of the colon. There are no findings to suggest inflammation. Suture material is seen at the base of the cecum related to appendectomy. There is no small bowel dilatation, free air or free fluid. No adenopathy is seen. No bony abnormalities are identified. The aorta is normal in diameter. IMPRESSION: Mild right hydronephrosis secondary to a small stone measuring 2 mm at the ureterovesical junction. Additional tiny nonobstructing stones are seen bilaterally.
[2018-07-28 08:28] LABS: ALT 31 U/L (12-78); AST 18 U/L (15-37); Albumin 3.5 g/dL (3.4-5.0); Alkaline Phosphatase 95 U/L (46-116); Anion Gap 11.2 mmol/L (3-11); BUN 9 mg/dL (7-18); Bilirubin, Total 0.3 mg/dL (0.2-1.0); CO2 27.8 mmol/L (21.0-32.0); CREATININE 0.95 mg/dL (0.55-1.02); Calcium 8.8 mg/dL (8.5-10.1); Chloride 104 mmol/L (98-107); Glucose 139 mg/dL (70-100); Lipase 202 U/L (73-393); Magnesium 1.7 mg/dL (1.8-2.4); Sodium 143 mmol/L (136-145); Total Protein 7.4 g/dL (6.4-8.2)
[2018-07-28 08:29] LABS: Potassium 2.9 mmol/L (3.5-5.1)
--- NOTE | 2018-07-28 08:39 | DI.VRAD_ITS ---
EXAM: CT Abdomen and Pelvis With Contrast EXAM DATE/TIME: 07/28/2018 8:23 AM CLINICAL HISTORY: 38 years old, female; Signs and symptoms; Other: Right sided abdominal pain TECHNIQUE: Imaging protocol: Axial computed tomography images of the abdomen and pelvis with intravenous contrast. Coronal and sagittal reformatted images were created and reviewed. Radiation optimization: All CT scans at this facility use at least one of these dose optimization techniques: automated exposure control; mA and/or kV adjustment per patient size (includes targeted exams where dose is matched to clinical indication); or iterative reconstruction. Contrast material: OMNIPAQUE 350; Contrast volume: 100 ml; Contrast route: IV; COMPARISON: CT renal colic wo 07/17/2018 10:00 PM FINDINGS: ABDOMEN: Liver: Hepatic steatosis is present. Gallbladder and bile ducts: The patient is status post cholecystectomy. Pancreas: Normal. No ductal dilation. Spleen: Normal. No splenomegaly. Adrenals: Normal. No mass. Kidneys and ureters: Mild right-sided hydronephrosis and hydroureter noted to the level of an obstructing distal right ureteral stone measuring 2 x 2 mm just proximal to the UVJ . Nonobstructive right-sided micro-nephrolithiasis is noted. Stomach and bowel: Colonic wall thickening is compatible with a nonspecific colitis, either infectious or inflammatory. Appendix: The patient is status post appendectomy. PELVIS: Bladder: The urinary bladder is questionably thickwalled. This may reflect incomplete distention. However correlation with UA is recommended to exclude cystitis. Reproductive: Unremarkable as visualized. ABDOMEN and PELVIS: Intraperitoneal space: Normal. No free air. No significant fluid collection. Bones/joints: No acute fracture. No dislocation. Soft tissues: Unremarkable. Vasculature: Normal. No abdominal aortic aneurysm. Lymph nodes: Normal. No enlarged lymph nodes. IMPRESSION: 1. Mild right-sided hydronephrosis and hydroureter noted to the level of an obstructing distal right ureteral stone measuring 2 x 2 mm just proximal to the UVJ . 2. Equivocal cystitis. 3. Colonic wall thickening is compatible with a nonspecific colitis, either infectious or inflammatory. Dictated and Authenticated by: Gene Maddox MD. Ordering:EBENEZER Hooper MD
[2018-07-28] MEDS: Potassium Chloride 20 MEQ TABCR 40 MEQ PO (09:03)
[2018-07-28 09:30] VITALS: BP 183/116; PULSE 78; RESP 16; TEMP 36.6; O2SAT 98
== END 2018-07-28 09:32 | disposition home or self-care (01) ==
PROVIDERS: Emergency Provider Emergency Medicine; PCP Physician Assistant Medical
DX: N13.1 Hydronephrosis with ureteral stricture, not elsewhere classified (principal)
CPT/HCPCS: 36415; 80053; 81025; 83690; 87077; 96361; 96374; 96375; 99285; 74177; 81003; 81015; 83735; 84484; 85025; 87086; 87186; 99284; J1885; J2405; J3490

== ENCOUNTER 2018-08-23 10:19 | Day surgery (SDC) | payer MEDICAID, SELFPAY ==
[2018-08-23] VITALS (8 sets, daily range): BP systolic 151–179; BP diastolic 103–127; PULSE 78–90; RESP 16–27; TEMP 36.4–36.8; O2SAT 93–97
[2018-08-23] MEDS: Lactated Ringers 1,000 ML 80 ML IV (11:02)
[2018-08-23 11:04] LABS: Anion Gap 11.7 mmol/L (3-11); CO2 25.3 mmol/L (21.0-32.0); Chloride 105 mmol/L (98-107); Potassium 4.1 mmol/L (3.5-5.1); Sodium 142 mmol/L (136-145)
--- NOTE | 2018-08-23 11:04 | DI.RAD_ITS ---
SYMPTOMS/DIAGNOSIS: URETERAL STONE RETROGRADE IN THE OR: Fluoroscopy Time: 12.1 sec Fluoroscopy was provided for Dr. Ross while performing a retrograde examination. Please see procedure note for details.
[2018-08-23] MEDS: Lidocaine 2% Jelly 6 ML SYR (12:27)
[2018-08-23] MEDS: Omnipaque 300 MG/ML 50 ML BTL (12:27)
--- NOTE | 2018-08-23 12:39 | W.PM.DSUDISC ---
Discharge Plan Disposition Patient Disposition: HOME Condition: Stable Discharge Details Reason For Visit: surgery Attending Provider: Herman Ross Primary Care Provider: Elizabeth Benton Home Meds and New Rx's Prescriptions: No Action verapamil 120 mg tablet extended release 120 mg PO DAILY Qty: 30 RF: 5 prochlorperazine maleate 5 mg tablet See Rx Instructions PO Q8H PRN Qty: 60 RF: 0 hydrocodone-acetaminophen 5-325 mg tablet 1 tab PO Q6H MDD 4 PRN (Reason: pain) Qty: 15 RF: 0 aripiprazole [Abilify] 10 mg tablet 15 mg PO HS RF: 0 ranitidine HCl 300 mg capsule 300 mg PO DAILY RF: 0 oxycodone 10 mg tablet 5 mg PO BID RF: 0 Narcan 4 mg/actuation spray,non-aerosol 1 spray LOGAN ONCE PRNRF: 0 pantoprazole [Protonix] 20 MG tablet,delayed release (DR/EC) 40 mg PO DAILY RF: 0 alprazolam [Xanax] 1 mg Tablet 1 mg PO HS RF: 0 metoprolol succinate 100 mg Tablet Extended Release 24 Hr 100 mg PO DAILY RF: 0 zolpidem 10 MG tablet 10 mg PO HS PRN PRNRF: 0 Vyvanse 30 MG capsule 30 mg PO DAILY RF: 0 tamsulosin [Flomax] 0.4 mg capsule 0.4 mg PO DAILY Qty: 14 RF: 0 ondansetron 4 mg tablet,disintegrating 4 mg PO QID PRN (Reason: nausea) Qty: 30 RF: 0 Discharge Instructions Additional Instructions: F/U appt 4 to 6 weeks with renal US No pain meds ordered - pt already has at home Activity:: Activity as Tolerated Shower/Bathe:: 24 hours Diet:: As Tolerated Discharge Orders Discharge Orders: Discharge Order (Routine); Ordered 08/23/18 Ordered By: Herman Ross DS: Diagnosis Discharge Diagnosis (1) Right ureteral stone: Status: Acute
[2018-08-23] MEDS: fentaNYL 100 MCG/2 ML VIAL IVP ×3 (13:00→13:28)
[2018-08-23] MEDS: Phenazopyridine 200 MG TAB PO (14:07)
--- NOTE | 2018-08-23 15:41 | ROE_ITS ---
DATE OF PROCEDURE: August 23, 2018 PREOPERATIVE DIAGNOSIS: Right ureteral stone. POSTOPERATIVE DIAGNOSIS: Right ureteral stone, recently passed. PROCEDURE: Cystoscopy; right retrograde pyelogram; right ureteroscopy. SURGEON: Herman Ross M.D. ANESTHESIA: General. COMPLICATIONS: None. ESTIMATED BLOOD LOSS: Minimal. HISTORY: This is a 38-year-old female who has a past history of bilateral kidney stones. She has be en having some right-sided flank pain and recently was identified as having a 2 mm stone at the urete rovesical junction, which was causing mild right hydronephrosis. She was unaware of passing the ston e and continued to have pain, so she presented to the Operating Room for stone manipulation. OPERATIVE REPORT: The patient was brought to the Operating Room on 08/23/18. After successful induct ion of general anesthesia, she was placed in the dorsal lithotomy position. Her genitalia was preppe d and draped. A 22 Kinyarwanda rigid cystoscope was passed through the urethra into the bladder. The bladder was inspec cl with a 30-degree lens. The right ureteral orifice was identified. I was able to cannulate the orifice with a 6 Kinyarwanda acces s catheter. I injected Omnipaque under fluoroscopy. I didn't see any filling defects on injection. There did appear to be a small calcification outside the course of the ureter on retrograde pyelogra m. I then passed a guidewire through the access catheter and maneuvered up the right ureter. We removed the access catheter and cystoscope, leaving the wire in place. I was then able to pass the semi-rigid ureteroscope through the urethra and into the right ureteral o rifice. We advanced the ureteroscope all the way up to the renal pelvis and no residual stones were identified. We reinspected the ureter on the withdrawal process. Based on this examination it appears that the patient has passed her distal ureteral stone in the rec ent past. All equipment was then removed. The patient tolerated this procedure well with no complications. We will plan on rechecking a renal ultrasound in 4 to 6 weeks to make sure her hydronephrosis has resol kathy. cc: Elizabeth Benton PA-C
== END 2018-08-23 14:35 | disposition home or self-care (01) ==
PROVIDERS: PCP Physician Assistant Medical; Visit Provider Urology
PROC: (CPT 52351; principal; 2018-08-23 12:15)
DX: N20.1 Calculus of ureter (principal); Z87.442 Personal history of urinary calculi; G89.29 Other chronic pain; Z79.891 Long term (current) use of opiate analgesic
CPT/HCPCS: 52351; 36415; 80051; 81025; 74420; J1100; J1885; J2405; Q9967

== ENCOUNTER 2018-10-01 18:49 | Emergency (ER) | payer MEDICAID, SELFPAY ==
[2018-10-01 18:51] VITALS: BP 157/111; PULSE 110; RESP 18; TEMP 37.1; O2SAT 97
--- NOTE | 2018-10-01 19:01 | W.ED.GENAD ---
Discharge Plan Disposition Patient Disposition: HOME Condition: Improving Discharge Details Chief Complaint: Abd Prob Clinical Impression: Nausea, Diarrhea, Abdominal pain, UTI (urinary tract infection) Primary Care Provider: Elizabeth Benton ED Provider: Marlin Dallas Home Meds and New Rx's Prescriptions: New ondansetron HCl [Zofran] 4 mg tablet 4 mg PO Q8H PRN (Reason: nausea and vomiting) Qty: 6 RF: 0 cephalexin [Keflex] 500 mg capsule 500 mg PO BID 5 Days Qty: 10 RF: 0 Continued verapamil 120 mg tablet extended release 120 mg PO DAILY Qty: 30 RF: 5 prochlorperazine maleate 5 mg tablet See Rx Instructions PO Q8H PRN Qty: 60 RF: 0 hydrocodone-acetaminophen 5-325 mg tablet 1 tab PO Q6H MDD 4 PRN (Reason: pain) Qty: 15 RF: 0 aripiprazole [Abilify] 10 mg tablet 15 mg PO HS RF: 0 ranitidine HCl 300 mg capsule 300 mg PO DAILY RF: 0 oxycodone 10 mg tablet 5 mg PO BID RF: 0 Narcan 4 mg/actuation spray,non-aerosol 1 spray LOGAN ONCE PRNRF: 0 pantoprazole [Protonix] 20 MG tablet,delayed release (DR/EC) 40 mg PO DAILY RF: 0 alprazolam [Xanax] 1 mg Tablet 1 mg PO HS RF: 0 metoprolol succinate 100 mg Tablet Extended Release 24 Hr 100 mg PO DAILY RF: 0 zolpidem 10 MG tablet 10 mg PO HS PRN PRNRF: 0 Vyvanse 30 MG capsule 30 mg PO DAILY RF: 0 tamsulosin [Flomax] 0.4 mg capsule 0.4 mg PO DAILY Qty: 14 RF: 0 ondansetron 4 mg tablet,disintegrating 4 mg PO QID PRN (Reason: nausea) Qty: 30 RF: 0 Discharge Instructions Instructions: Urinary Tract Infection in Women (ED), Acute Nausea and Vomiting (ED), Acute Diarrhea (ED), Abdominal Pain (ED) Additional Instructions: Take the Zofran as needed and directed for any nausea or vomiting. Take the antibiotics until finished. Follow a bland diet over the next few days including bananas, rice, applesauce and toast. Follow-up with your primary care doctor on Thursday for reevaluation. Return to the emergency department if you develop any worsening or new concerning symptoms. Discharge Data Discharge Physician: Marlin Dallas Medical Decision Making 38-year-old female with a history of appendectomy, cholecystectomy, chronic abdominal pain, depression anxiety who presents with right upper quadrant abdominal pain and diarrhea and nausea for the past few days. States her symptoms are similar to when she has had pain with her hernia in the past. Denies fever. Right upper quadrant tender to palpation. No rigidity or guarding. She appears nontoxic. No CVA tenderness. test negative. Differential diagnosis includes gastritis, PUD, gastroenteritis, SBO. Will place an IV, bolus IV fluids, screening labs and CT abdomen and pelvis and toradol and reassess. 2030 -- Labs and imaging reviewed. White blood cell count 11. Potassium 3.2, repleted. Magnesium 1.7. Lipase within normal limits. Urinalysis notes positive nitrate, trace leukocyte esterase and 20-50 WBCs. Urine culture sent. CT unremarkable for acute abdominal process. In the setting of nausea, diarrhea, abdominal pain, will treat UTI. Patient feels better after meds here but still has some minimal right upper quadrant pain but states it is improved and she feels good to go home. Given dose of Pepcid prior to discharge. She was also given a dose of Keflex here as well as prescription for Keflex and Zofran for home. She was advised on foods to supplement potassium and best in setting of diarrhea. She is advised to follow-up with her primary care doctor for evaluation and to return here at any time if worse. Medical Records Medical records reviewed: Yes I reviewed the patient's medical records. Imaging Data Radiologic Study: Radiologist's impression: CT Abdomen and Pelvis With Contrast EXAM DATE/TIME: 10/01/2018 7:19 PM CLINICAL HISTORY: 38 years old, female; Abdominal pain; Localized; Right upper quadrant (ruq); Prior surgery; Surgery type: Renal calculi lithotripsy TECHNIQUE: Imaging protocol: Axial computed tomography images of the abdomen and pelvis with intravenous contrast. Coronal and sagittal reformatted images were created and reviewed. Radiation optimization: All CT scans at this facility use at least one of these dose optimization techniques: automated exposure control; mA and/or kV adjustment per patient size (includes targeted exams where dose is matched to clinical indication); or iterative reconstruction. Contrast material: [id number];Contrast volume: 100 ml;Contrast route: IV 18G RAC; COMPARISON: CT ABDOMEN PELVIS W 07/28/2018 8:15 AM FINDINGS: There is essentially stable mild right hydroureter, which extends up to the distal right ureter, without evidence of a discrete obstructing stone identified in this examination. Note that a punctate hyperdense focus lies just superior to the distal right ureter on image 77 series 4 and represents a vascular structure, best seen on the coronal films (image 64 series 6). No significant right hydronephrosis. There is no significant right perinephric or periureteral inflammatory change appreciated. The left kidney is unremarkable. The urinary bladder is slightly underdistended, however appears grossly unremarkable. Reproductive organs are unremarkable. The liver, biliary system, pancreas, spleen, and adrenal glands are unremarkable except for stable hepatomegaly and diffuse hepatic steatosis. There is prior cholecystectomy. Stable submucosal fat deposition throughout the colon favors chronicity and likely related to the sequela of prior infectious/inflammatory process or increased body fat content. No definitive evidence of colonic inflammatory change is noted at this time. No bowel obstruction. No free fluid, fluid collections, or pneumoperitoneum. No concerning abdominal pelvic adenopathy or acute vascular pathology. Lung bases and body wall soft tissues appear unremarkable except for stable postsurgical changes/repair in the anterior abdominal wall. No acute skeletal abnormality or aggressive osseous lesions appreciated. IMPRESSION: Essentially stable mild right hydroureter without significant inflammatory change or evidence of a discrete calcified distal obstructing stone. No other acute abdominopelvic pathology otherwise appreciated. Lab Data Lab results reviewed: Yes I reviewed the patient's lab results. 10/01/18 19:00 Urine - Reflex from Ua Urine Culture - Pending Laboratory Tests Range/Units 10/01/18 10/01/18 10/01/18 19:00 19:30 19:30 WBC (4.4-10.8) k/cumm 11.67 H RBC (4.00-5.20) m/cumm 4.65 Hgb (12.0-15.5) g/dL 14.4 Hct (36.0-46.0) % 42.3 MCV (80-95) fL 91.0 MCH (27.0-33.0) pg 31.0 MCHC (32.0-36.0) g/dL 34.0 RDW (11.7-14.6) % 12.9 Plt Count (130-400) x1000/uL 306 MPV (8.0-11.0) fL 9.8 Immature Gran % 0.2 Neutrophils % 77.9 Lymphocytes % 15.0 Monocytes % 5.9 Eosinophils % 0.7 Basophils % 0.3 Absolute Neutrophils (1.2-6.7) k/cumm 9.09 H Absolute Lymphocytes (1.2-3.4) k/cumm 1.75 Absolute Monocytes (0.11-0.7) k/cumm 0.69 Absolute Eosinophils (0.0-0.7) k/cumm 0.08 Absolute Basophils (0.0-0.2) k/cumm 0.04 Sodium (136-145) mmol/L 138 Potassium (3.5-5.1) mmol/L 3.2 L Chloride (98-107) mmol/L 101 Carbon Dioxide (21.0-32.0) mmol/L 24.0 Anion Gap (3-11) mmol/L 13.0 H BUN (7-18) mg/dL 10 Creatinine (0.55-1.02) mg/dL 1.17 H Estimated GFR/1.73 m2 (mL/min/1.73m2) 51.23 Glucose (70-100) mg/dL 120 H Calcium (8.5-10.1) mg/dL 9.2 Total Bilirubin (0.2-1.0) mg/dL 0.3 AST (15-37) U/L 20 ALT (12-78) U/L 39 Alkaline Phosphatase (46-116) U/L 100 Total Protein (6.4-8.2) g/dL 7.9 Albumin (3.4-5.0) g/dL 3.7 Lipase (73-393) U/L 89 Urine Color (Yellow) Yellow Urine Clarity (Clear) Cloudy Urine pH (5-8) 5.5 Ur Specific [place] (1.005-1.025) >= 1.030 H Urine Protein (Negative) mg/dL 100 H Urine Ketones (Negative) mg/dL Negative Urine Blood (Negative) Trace-intact H Urine Nitrite (Negative) Positive H Urine Bilirubin (Negative) Small H Urine Urobilinogen (Up TO 0.2) EU/dL 0.2 Ur Leukocyte Esterase (Negative) Trace H Urine RBC (0-2) 3-5 H Urine WBC (0-5) HPF 20-50 Ur Epithelial Cells (Negative) HPF Few Urine Crystals (Negative) HPF Negative Urine Bacteria (Negative) HPF Moderate Urine Casts (Negative) LPF Negative Urine Mucus (Negative) Heavy Urine Other (Negative) Negative Ur Culture Indicated? Yes Urine Glucose (Negative) mg/dL Negative HPI General Mode of arrival: ambulatory. Date/Time Provider Initiated Documentation: 10/01/18 18:51. Limitations to Documentation: no limitations. Information obtained by: patient. HPI Narrative: Pt is a 38yo F w/ a history of appendectomy, cholecystectomy, lithotripsy who presents with right upper quadrant abdominal pain for the past week. She states the pain is constant, burning, worse with bending over and eating and better with nothing. She took Pepto-Bismol without relief. She admits to nausea but denies any vomiting, fever, chills, urinary symptoms, vaginal discharge, recent antibiotics, recent travel or sick contacts. She states she has had multiple episodes of watery brown diarrhea over the past few days but denies any rectal bleeding. States she has a history of kidney stones but states this does not feel similar to this. Related Data Home Medications Medication Instructions Recorded Confirmed pantoprazole [Protonix] 40 mg PO DAILY 10/01/16 08/23/18 Vyvanse 30 mg PO DAILY 05/26/17 08/23/18 zolpidem 10 mg PO HS PRN PRN 05/26/17 08/23/18 aripiprazole 10 mg tablet 15 mg PO HS tab 04/19/18 08/23/18 naloxone 4 mg/actuation nasal spray 1 spray LOGAN ONCE PRN 04/19/18 08/23/18 oxycodone 10 mg tablet 5 mg PO BID tab 04/19/18 08/23/18 ranitidine HCl 300 mg capsule 300 mg PO DAILY 04/19/18 08/23/18 prochlorperazine maleate 5 mg See Rx Instructions PO Q8H PRN #60 04/22/18 08/23/18 tablet tab verapamil 120 mg tablet,extended 120 mg PO DAILY #30 tab 04/22/18 08/23/18 release alprazolam [Xanax] 1 mg PO HS 07/17/18 08/23/18 ondansetron 4 mg PO QID PRN #30 tab 07/28/18 08/23/18 tamsulosin [Flomax] 0.4 mg PO DAILY #14 cap 07/28/18 08/23/18 hydrocodone 5 mg-acetaminophen 325 1 tab PO Q6H PRN #15 tab MDD 4 08/16/18 08/23/18 mg tablet metoprolol succinate 100 mg PO DAILY 08/23/18 08/23/18 cephalexin [Keflex] 500 mg PO BID 5 Days #10 cap 10/01/18 ondansetron HCl [Zofran] 4 mg PO Q8H PRN #6 tab 10/01/18 Previous Rx's Medication Instructions Recorded prochlorperazine maleate 5 mg See Rx Instructions PO Q8H PRN #60 04/22/18 tablet tab verapamil 120 mg tablet,extended 120 mg PO DAILY #30 tab 04/22/18 release ondansetron 4 mg PO QID PRN #30 tab 07/28/18 tamsulosin [Flomax] 0.4 mg PO DAILY #14 cap 07/28/18 hydrocodone 5 mg-acetaminophen 325 1 tab PO Q6H PRN #15 tab MDD 4 08/16/18 mg tablet cephalexin [Keflex] 500 mg PO BID 5 Days #10 cap 10/01/18 ondansetron HCl [Zofran] 4 mg PO Q8H PRN #6 tab 10/01/18 Allergies Allergy/AdvReac Type Severity Reaction Status Date / Time prednisone Allergy Intermediate Unverified 10/01/18 18:56 codeine AdvReac Mild Nausea Unverified 10/01/18 18:56 morphine AdvReac Mild Nausea Unverified 10/01/18 18:56 tramadol HCl [From Ultram] AdvReac Mild Nausea Unverified 10/01/18 18:56 tegaderm tape AdvReac Intermediate ariza my Uncoded 10/01/18 18:56 skin General Stated Complaint: Abd Prob JOEL: 3 Review of Systems Review of Systems All systems reviewed & are unremarkable except as noted in HPI and below Constitutional Reports as per HPI, Denies chills and Denies fever(s) Eyes Denies blurry vision ENT Denies dizziness, Denies sore throat and Denies throat swelling Cardiovascular Denies chest pain and Denies dyspnea Respiratory Denies cough and Denies dyspnea Gastrointestinal Reports abdominal pain, Reports diarrhea, Reports nausea and Denies vomiting Genitourinary Denies hematuria and Denies dysuria Musculoskeletal Denies back pain and Denies numbness Integumentary/Breasts Denies lesions and Denies rash Neurologic Denies dizziness, Denies focal weakness and Denies numbness Allergic/Immunologic Denies throat swelling [facility] Medical History Abdominal pain (Resolved) Active asthma ADD (attention deficit disorder) Affective bipolar disorder Amenorrhea Bilateral kidney stones (Acute) Causalgia of left upper extremity (Resolved) Cervical disc disease Chest pain at rest (Resolved) Chronic headache (Chronic) Chronic insomnia Chronic pain (Chronic) Chronic wrist pain (Resolved) Cold sore (Resolved) Conversion disorder CVA tenderness (Resolved) Depression with anxiety Dizziness (Resolved) Essential tremor (Resolved) Gastritis Headache, chronic migraine without aura (Chronic) Carcamo sign present (Resolved) Hydronephrosis (Resolved) Hyperreflexia (Resolved) Kidney stones (Resolved) Knee pain (Resolved) Left-sided thoracic back pain (Resolved) Medication overuse headache (Chronic) Memory loss (Resolved) Migraines (Resolved) Neuralgia (Resolved) Numbness and tingling (Resolved) Psychogenic tremor (Chronic) Rectal bleeding Right arm weakness (Resolved) Speech problem (Resolved) Upper respiratory infection (Resolved) Ureteral calculi (Resolved) Surgical History Repair of umbilical hernia S/P appendectomy (Acute) S/P cholecystectomy (Acute) S/P knee surgery (Acute) Family History Father Cerebral aneurysm Social History Smoking/Tobacco Use Status: Current every day Tobacco Type: cigarettes Alcohol Intake: never Drug use: Never Substance use type: does not use Household members: significant other and children Number of Children: 1 Do you feel safe at home: Yes Do you feel safe in your relationship?: Yes Exam Const General: cooperative, healthy appearing and no acute distress HENMT Head: normal to inspection Face and sinus: normal facial exam Eyes General: appearance normal, both eyes and all related structures EOM: EOM intact bilaterally Neck Neck: normal visual inspection and No submandibular swelling Lymphatic: no lymphadenopathy noted Chest Chest: normal inspection of the chest and no tenderness Resp Effort & Inspection: normal respiratory effort and able to speak in complete sentences Auscultation: clear to auscultation bilaterally Cardio Rate: regular rate Rhythm: regular rhythm GI Inspection: normal to inspection Palpation: soft, not firm, no guarding, not rigid and tender in the RUQ; with no rebound tenderness Auscultation: normal bowel sounds Back/Spine/Pelvis Back: no CVA tenderness Skin General skin exam: no rashes or lesions noted Neuro General: alert, awake and oriented x3 Cognition: normal cognition Speech: speech normal Motor: muscle tone normal throughout Sensory Exam: no sensory deficits noted Extrem General: normal to inspection, full ROM, normal capillary refill, no calf tenderness bilaterally and no edema Psych Appearance: grossly normal Mental Status: mental status grossly normal Speech and Movement: speech and movement normal Affect: normal affect Course Vital Signs Temperature 98.8 F 10/01/18 18:51 Pulse 110 H 10/01/18 18:51 Respiratory Rate 18 10/01/18 18:51 Blood Pressure 157/111 H 10/01/18 18:51 Pulse Oximetry 97 10/01/18 18:51 Temperature 98.8 F 10/01/18 18:51 Temperature Source Skin 10/01/18 18:51 Pulse 110 H 10/01/18 18:51 Respiratory Rate 18 10/01/18 18:51 Respiratory Effort 10/01/18 18:57 Blood Pressure 157/111 H 10/01/18 18:51 Blood Pressure Position Sitting 10/01/18 18:51 Pulse Oximetry 97 10/01/18 18:51 Oxygen Delivery Method Room Air 10/01/18 18:51 Oxygen Flow Rate 0 10/01/18 18:51 Pain Level 7 10/01/18 18:51
[2018-10-01 19:10] LABS: Bilirubin Small (Negative); Blood Trace-intact (Negative); Clarity Cloudy (Clear); Glucose Negative (Negative); Ketones Negative (Negative); Leukocyte Esterase Trace (Negative); Nitrite Positive (Negative); Specific Gravity >= 1.030 (1.005-1.025); Urobilinogen 0.2 EU/dL (Up TO 0.2); pH 5.5 (5-8)
[2018-10-01 19:20] LABS: Bacteria Moderate HPF (Negative); C & S Indicated? Yes; Casts Negative LPF (Negative); Crystals Negative HPF (Negative); Epithelial Cells Few HPF (Negative); Mucus Heavy (Negative); Other Cells Negative (Negative); WBC 20-50 HPF (0-5)
[2018-10-01] MEDS: Normal Saline Flush 10 ML SYR IVP (19:30)
[2018-10-01] MEDS: Normal Saline 1,000 ML 1000 ML IV (19:35)
[2018-10-01] MEDS: Ketorolac 30 MG/ML VIAL IVP (19:38)
[2018-10-01 19:50] LABS: Abs Immature Grans 0.02 k/cumm (0.0-0.09); Absolute Basophil Count 0.04 k/cumm (0.0-0.2); Absolute Eosinophil Count 0.08 k/cumm (0.0-0.7); Absolute Lymphocyte Count 1.75 k/cumm (1.2-3.4); Absolute Monocyte Count 0.69 k/cumm (0.11-0.7); Absolute Neutrophil Count 9.09 k/cumm (1.2-6.7); Basophils % 0.3; Eosinophils % 0.7; HCT 42.3 % (36.0-46.0); HGB 14.4 g/dL (12.0-15.5); Immature Grans % 0.2; Mean Platelet Volume 9.8 fL (8.0-11.0); Monocytes % 5.9; Neutrophils % 77.9; Platelet Count 306 x1000/uL (130-400); RBC 4.65 m/cumm (4.00-5.20); RBC Distribution Width 12.9 % (11.7-14.6); White Blood Cell Count 11.67 k/cumm (4.4-10.8)
[2018-10-01] MEDS: Omnipaque 350 MG/ML 100 ML BTL IJ (19:57)
--- NOTE | 2018-10-01 19:57 | DI.CT_ITS ---
SYMPTOM/DIAGNOSIS: RUQ ABD PAIN. R/O ACUTE PROCESS/SBO CT ABDOMEN AND PELVIS: Post contrast examination was performed. Comparison 07/28/18 The lung bases are clear. There is diffuse decreased attenuation of the liver consistent with fatty infiltration. No suspicious hepatic mass is seen. The liver is enlarged. The patient is status post cholecystectomy. No biliary ductal dilatation is present. The portal, superior mesenteric and splenic veins are patent. The pancreas, spleen and adrenal glands are all unremarkable. There is unchanged dilatation of the right renal collecting system. No obstructing stone is seen. The left kidney is unremarkable. The urinary bladder is intact. The reproductive organs are unremarkable. The abdominal aorta is of normal caliber. No significant abdominal or pelvic adenopathy, ascites or pneumoperitoneum is seen. The bowel shows no evidence of obstruction or inflammation. There is persistent decreased attenuation in the wall of the colon. This likely is chronic and may be due to the increased body fat content or prior infectious or inflammatory process. Prior anterior abdominal wall hernia repair is noted. No acute osseous abnormality is identified. IMPRESSION: Stable dilatation of the right renal collecting system but no evidence of an obstructing stone is seen.
[2018-10-01 20:00] LABS: ALT 39 U/L (12-78); AST 20 U/L (15-37); Albumin 3.7 g/dL (3.4-5.0); Alkaline Phosphatase 100 U/L (46-116); BUN 10 mg/dL (7-18); Bilirubin, Total 0.3 mg/dL (0.2-1.0); CREATININE 1.17 mg/dL (0.55-1.02); Calcium 9.2 mg/dL (8.5-10.1); Chloride 101 mmol/L (98-107); Estimated GFR 51.23 (mL/min/1.73m2); Glucose 120 mg/dL (70-100); Lipase 89 U/L (73-393); Potassium 3.2 mmol/L (3.5-5.1); Sodium 138 mmol/L (136-145); Total Protein 7.9 g/dL (6.4-8.2)
--- NOTE | 2018-10-01 20:28 | DI.VRAD_ITS ---
EXAM: CT Abdomen and Pelvis With Contrast EXAM DATE/TIME: 10/01/2018 7:19 PM CLINICAL HISTORY: 38 years old, female; Abdominal pain; Localized; Right upper quadrant (ruq); Prior surgery; Surgery type: Renal calculi lithotripsy TECHNIQUE: Imaging protocol: Axial computed tomography images of the abdomen and pelvis with intravenous contrast. Coronal and sagittal reformatted images were created and reviewed. Radiation optimization: All CT scans at this facility use at least one of these dose optimization techniques: automated exposure control; mA and/or kV adjustment per patient size (includes targeted exams where dose is matched to clinical indication); or iterative reconstruction. Contrast material: [id number];Contrast volume: 100 ml;Contrast route: IV 18G RAC; COMPARISON: CT ABDOMEN PELVIS W 07/28/2018 8:15 AM FINDINGS: There is essentially stable mild right hydroureter, which extends up to the distal right ureter, without evidence of a discrete obstructing stone identified in this examination. Note that a punctate hyperdense focus lies just superior to the distal right ureter on image 77 series 4 and represents a vascular structure, best seen on the coronal films (image 64 series 6). No significant right hydronephrosis. There is no significant right perinephric or periureteral inflammatory change appreciated. The left kidney is unremarkable. The urinary bladder is slightly underdistended, however appears grossly unremarkable. Reproductive organs are unremarkable. The liver, biliary system, pancreas, spleen, and adrenal glands are unremarkable except for stable hepatomegaly and diffuse hepatic steatosis. There is prior cholecystectomy. Stable submucosal fat deposition throughout the colon favors chronicity and likely related to the sequela of prior infectious/inflammatory process or increased body fat content. No definitive evidence of colonic inflammatory change is noted at this time. No bowel obstruction. No free fluid, fluid collections, or pneumoperitoneum. No concerning abdominal pelvic adenopathy or acute vascular pathology. Lung bases and body wall soft tissues appear unremarkable except for stable postsurgical changes/repair in the anterior abdominal wall. No acute skeletal abnormality or aggressive osseous lesions appreciated. IMPRESSION: Essentially stable mild right hydroureter without significant inflammatory change or evidence of a discrete calcified distal obstructing stone. No other acute abdominopelvic pathology otherwise appreciated. Dictated and Authenticated by: Vadim Pinon MD. Ordering:AKIRA Isaac MD
[2018-10-01] MEDS: Potassium Chloride 20 MEQ TABCR 40 MEQ PO (20:39)
[2018-10-01 20:40] VITALS: BP 155/101; PULSE 97; RESP 18; TEMP 37; O2SAT 98
[2018-10-01] MEDS: Cephalexin 500 MG CAP PO (20:44)
[2018-10-01] MEDS: Famotidine 20 MG TAB PO (20:44)
[2018-10-01] MEDS: Ondansetron O.D.T. 4 MG TABEF 8 MG PO (20:45)
[2018-10-01 20:52] VITALS: BP 155/101; PULSE 97; RESP 18; TEMP 37; O2SAT 98
== END 2018-10-01 20:52 | disposition home or self-care (01) ==
PROVIDERS: Emergency Provider Physician Assistant; PCP Physician Assistant Medical
DX: R11.2 Nausea with vomiting, unspecified (principal); R19.7 Diarrhea, unspecified; N39.0 Urinary tract infection, site not specified; B96.20 Unspecified Escherichia coli [E. coli] as the cause of diseases classified elsewhere; R10.11 Right upper quadrant pain; E87.6 Hypokalemia
CPT/HCPCS: 36415; 80053; 81025; 83690; 87077; 96361; 96374; 99285; 74177; 81003; 81015; 85025; 87086; 87186; J1885; J3490

== ENCOUNTER 2018-10-07 07:00 | Outpatient (CLI) | payer MEDICAID, SELFPAY ==
--- NOTE | 2018-10-07 11:06 | DI.US_ITS ---
SYMPTOM/DIAGNOSIS: R/O HYDRO AFTER URETEROSCOPY N20.1, CALCULUS OF URETER RENAL ULTRASOUND: The left kidney measures 11.8 x 4.2 x 4.6 cm. The right kidney 11.2 x 4 x 5.4 cm. There is no evidence of right or left hydronephrosis or nephrolithiasis or mass or cyst. The pre-void bladder contains 48 cc The patient was unable to void at the time of the examination. A left ureteral jet was visualized. The right ureteral jet is not seen. SUMMARY: The kidneys are normal. There is no evidence of a hydronephrosis or nephrolithiasis. The bladder is suboptimally distended and the patient could not void at the time of this study.
== END 2018-10-07 07:20 ==
PROVIDERS: PCP Physician Assistant Medical; Visit Provider Urology
DX: N20.1 Calculus of ureter (principal); R39.198 Other difficulties with micturition
CPT/HCPCS: 76770

== ENCOUNTER 2018-10-26 13:03 | Outpatient (REF) | payer MEDICAID, SELFPAY ==
[2018-10-26 14:58] LABS: Creatinine,Urine 99.89 mg/dL; Sodium, Urine 78 mmol/L
[2018-10-26 15:05] LABS: CLEAVED CELLS 70 mmol/24h (40-220); Total Volume 900 ml
[2018-10-27 12:16] LABS: Calcium Urine 12.9 mg/dl; Calcium Urine 24 hr 116 mg/24hr (100-300); Phosphorus Urine 72.2 mg/dl; Phosphorus Urine 24hr 0.6 g/24h (0.4-1.3)
[2018-10-27 12:20] LABS: Uric Acid Urine 29.8 mg/dl; Uric Acid Urine 24hr 268 mg/24h (250-750)
[2018-10-28 18:27] LABS: Citrate Excretion, 24hr, U 226 mg/24 h (292 - 1191); Urine Volume 900 mL
[2018-10-29 12:02] LABS: Oxalate Conc (mmol/L) 0.15 mmol/L; Oxalate Concentration 13.2 mg/L; Oxalate, U 0.14 mmol/24 h; Oxalate, U 12.3 mg/24 h (9.7 - 40.5); Urine Volume 900 mL
== END 2018-10-26 13:23 ==
LOC: LBN 13:03
PROVIDERS: PCP Physician Assistant Medical; Visit Provider Urology
DX: N20.0 Calculus of kidney (principal)
CPT/HCPCS: 82507; 83735; 81050; 82340; 82570; 83945; 84105; 84300; 84560

== ENCOUNTER 2018-11-13 14:28 | Emergency (ER) | payer MEDICAID, SELFPAY ==
[2018-11-13 14:36] VITALS: BP 160/98; PULSE 112; RESP 18; TEMP 36.6; O2SAT 97
--- NOTE | 2018-11-13 15:01 | ED.GENADUL_ITS ---
Discharge Plan Disposition Patient Disposition: HOME Condition: Good Discharge Details Chief Complaint: Orthopedic Clinical Impression: Sprain of toe Primary Care Provider: Elizabeth Benton ED Provider: Mili Arnold Home Meds and New Rx's Prescriptions: Continued verapamil 120 mg tablet extended release 120 mg PO DAILY Qty: 30 RF: 5 prochlorperazine maleate 5 mg tablet See Rx Instructions PO Q8H PRN Qty: 60 RF: 0 aripiprazole [Abilify] 10 mg tablet 15 mg PO HS RF: 0 ranitidine HCl 300 mg capsule 300 mg PO DAILY RF: 0 Narcan 4 mg/actuation spray,non-aerosol 1 spray LOGAN ONCE PRNRF: 0 pantoprazole [Protonix] 20 MG tablet,delayed release (DR/EC) 40 mg PO DAILY RF: 0 alprazolam [Xanax] 1 mg Tablet 1 mg PO HS RF: 0 metoprolol succinate 100 mg Tablet Extended Release 24 Hr 100 mg PO DAILY RF: 0 ondansetron HCl [Zofran] 4 mg tablet 4 mg PO Q8H PRN (Reason: nausea and vomiting) Qty: 6 RF: 0 zolpidem 10 MG tablet 10 mg PO HS PRN PRNRF: 0 hydrocodone-acetaminophen 10-300 mg Tablet 1 tab PO Q4H PRNRF: 0 Discharge Instructions Instructions: Contusion in Adults (ED) Additional Instructions: Encourage rest, ice, elevation. Tylenol and ibuprofen as needed for discomfort. Please continue postoperative shoe while pain persisst. Please follow-up with primary care in the next 1 to 2 weeks if note improving. Seek care urgently once again with new or worsening symptoms. Referrals: Elizabeth Benton [Primary Care Provider] - Medical Decision Making Patient is a 38-year-old female, coming by significant other, with chief complaint of left fourth toe pain. She reports 2 days ago she was walking in her kitchen when she kicked a chair. Since that time, she has had ecchymosis and pain to this area. She was concerned that the toe itself is cold. However, both of her feet feel cool, she is got good capillary refill bilaterally. I do not see any evidence of ischemia. She does have ecchymosis to the fourth toe. Has pain with palpation over the fourth toe as well as proximal to the symptoms along the metatarsal. FINDINGS: The bony structures are in anatomic alignment. No fracture is present. No radiopaque foreign body is identified. The joint spaces are well maintained. IMPRESSION: No evidence of acute bony abnormality Discussed these findings with the patient. Encourage rest, ice, elevation. Tylenol and ibuprofen as needed for discomfort. She is been prescribed opiates extremely, she may continue with these previously prescribed. Patient will be fitted with a postoperative shoe to help with discomfort. Advise follow-up with primary care in 1 week if not improving. All questions and concerns were addressed she is in agreement this plan. HPI General Mode of arrival: ambulatory . Date/Time Provider Initiated Documentation: 11/13/18 14:34 . Limitations to Documentation: no limitations . Information obtained by: patient, family and RN notes reviewed . History of Present Illness 38 year old F presents to the emergency department with the chief complaint of left 4th toe pain, described as moderate, with intensity rated at 5. Quality is described as aching, and is localized to the left and lower extremity. Patient reports no radiation. Patient started experiencing this day(s) (2) and it has been constant. Immobilization improves sympto m(s), Movement worsens symptoms . Patient notes no other symptoms.. Patient did receive the following treatments prior to arrival, other (taking her prescribed opiates) Related Data Home Medications Medication Instructions Recorded Confirmed pantoprazole [Protonix] 40 mg PO DAILY 10/01/16 11/13/18 zolpidem 10 mg PO HS PRN PRN 05/26/17 11/13/18 aripiprazole 10 mg tablet 15 mg PO HS tab 04/19/18 11/13/18 naloxone 4 mg/actuation nasal spray 1 spray LOGAN ONCE PRN 04/19/18 11/13/18 ranitidine HCl 300 mg capsule 300 mg PO DAILY 04/19/18 11/13/18 prochlorperazine maleate 5 mg See Rx Instructions PO Q8H PRN #60 04/22/18 11/13/18 tablet tab verapamil 120 mg tablet,extended 120 mg PO DAILY #30 tab 04/22/18 11/13/18 release alprazolam [Xanax] 1 mg PO HS 07/17/18 11/13/18 metoprolol succinate 100 mg PO DAILY 08/23/18 11/13/18 ondansetron HCl [Zofran] 4 mg PO Q8H PRN #6 tab 10/01/18 11/13/18 hydrocodone-acetaminophen 1 tab PO Q4H PRN 11/13/18 11/13/18 Previous Rx's Medication Instructions Recorded prochlorperazine maleate 5 mg See Rx Instructions PO Q8H PRN #60 04/22/18 tablet tab verapamil 120 mg tablet,extended 120 mg PO DAILY #30 tab 04/22/18 release ondansetron HCl [Zofran] 4 mg PO Q8H PRN #6 tab 10/01/18 Allergies Allergy/AdvReac Type Severity Reaction Status Date / Time prednisone Allergy Intermediate Unverified 11/13/18 14:41 codeine AdvReac Mild Nausea Unverified 11/13/18 14:41 morphine AdvReac Mild Nausea Unverified 11/13/18 14:41 tramadol HCl [From Ultram] AdvReac Mild Nausea Unverified 11/13/18 14:41 tegaderm tape AdvReac Intermediate ariza my Uncoded 11/13/18 14:41 skin General Stated Complaint: Orthopedic JOEL: 4 Review of Systems Constitutional Reports as per HPI, Denies chills, Denies fever(s), Denies headache(s) and Denies weakness ENT Denies headache(s) Cardiovascular Reports as per HPI Respiratory Reports as per HPI and Denies cough Musculoskeletal Reports as per HPI and Denies tingling Integumentary/Breasts Reports as per HPI, Denies rash, Denies wounds and Reports other (ecchymosis to left 4th toe) Neurologic Reports as per HPI, Denies headache(s), Denies tingling, Denies paresthesias and Denies weakness [facility] Medical History Abdominal pain (Resolved) Active asthma ADD (attention deficit disorder) Affective bipolar disorder Amenorrhea Bilateral kidney stones (Acute) Causalgia of left upper extremity (Resolved) Cervical disc disease Chest pain at rest (Resolved) Chronic headache (Chronic) Chronic insomnia Chronic pain (Chronic) Chronic wrist pain (Resolved) Cold sore (Resolved) Conversion disorder tremor, stutter, weakness CVA tenderness (Resolved) Depression with anxiety Dizziness (Resolved) Essential tremor (Resolved) Gastritis Headache, chronic migraine without aura (Chronic) Carcamo sign present (Resolved) Hydronephrosis (Resolved) Hyperreflexia (Resolved) Kidney stones (Resolved) Knee pain (Resolved) Left-sided thoracic back pain (Resolved) Medication overuse headache (Chronic) Memory loss (Resolved) Migraines (Resolved) Neuralgia (Resolved) Numbness and tingling (Resolved) Psychogenic tremor (Chronic) Rectal bleeding Right arm weakness (Resolved) Speech problem (Resolved) Upper respiratory infection (Resolved) Ureteral calculi (Resolved) Surgical History Repair of umbilical hernia S/P appendectomy (Acute) S/P cholecystectomy (Acute) S/P knee surgery (Acute) Social History Smoking/Tobacco Use Status: Current every day Tobacco Type: cigarettes Alcohol Intake: never Drug use: Never Substance use type: does not use Household members: significant other and children Number of Children: 1 Do you feel safe at home: Yes Do you feel safe in your relationship?: Yes Exam Const General: cooperative, healthy appearing, comfortable, no acute distress, well developed and well groomed Nutritional Appearance: average body habitus and well nourished Orientation: alert and awake Resp Effort & Inspection: normal respiratory effort, able to speak in complete sentences and no respiratory distress Cardio Rate: regular rate Rhythm: regular rhythm Skin General skin exam: ecchymosis (left 4th toe) Neuro General: alert and awake Cognition: normal cognition Speech: speech normal Gait: normal gait Motor: muscle tone normal throughout Sensory Exam: no sensory deficits noted Extrem Left lower extremity: normal capillary refill, no joint enlargement, ankle Details: normal to inspection and normal ROM; no tenderness and no swelling and foot Details: normal capillary refill, abnormal to inspection (ecchymosis and pain 4th digit), tenderness Location: of the dorsal foot (4th digit), no edema, ecchymosis, vascular exam Details: dorsalis pedis pulse present, posterior tibial pulse present and normal capillary refill and motor-sensory exam Details: light-touch normal; ROM of toes abnormal (will not range toe), no unusual warmth and no lacerations; abnormal to inspection (ecchymosis and pain 4th left digit) Psych Appearance: grossly normal and well kempt Mental Status: mental status grossly normal Speech and Movement: speech and movement normal Course Vital Signs Temperature 36.6 C 11/13/18 14:36 Pulse 112 H 11/13/18 14:36 Respiratory Rate 18 11/13/18 14:36 Blood Pressure 160/98 H 11/13/18 14:36 Pulse Oximetry 97 11/13/18 14:36 Temperature 36.6 C 11/13/18 14:36 Temperature Source Temporal Artery Scan 11/13/18 14:36 Pulse 112 H 11/13/18 14:36 Respiratory Rate 18 11/13/18 14:36 Respiratory Effort 11/13/18 14:48 Blood Pressure 160/98 H 11/13/18 14:36 Pulse Oximetry 97 11/13/18 14:36 Pain Level 5 11/13/18 14:36
--- NOTE | 2018-11-13 15:26 | DI.RAD_ITS ---
SYMPTOM/DIAGNOSIS: 4TH TOE INJURY, PAIN LEFT FOOT: Three views were obtained. No fracture is seen.
--- NOTE | 2018-11-13 15:50 | DI.VRAD_ITS ---
EXAM: XR Left Foot Complete EXAM DATE/TIME: 11/13/2018 3:08 PM CLINICAL HISTORY: 38 years old, female; Injury or trauma; Fall; Initial encounter; Blunt trauma; Toes; Left lesser toe(s); Injury details: 4th toe injury TECHNIQUE: Imaging protocol: XR Left foot. Views: 3 or more views. COMPARISON: No relevant prior studies available. FINDINGS: The bony structures are in anatomic alignment. No fracture is present. No radiopaque foreign body is identified. The joint spaces are well maintained. IMPRESSION: No evidence of acute bony abnormality. Dictated and Authenticated by: Hans Valencia MD. Ordering:CARMEN Garces MD
== END 2018-11-13 16:14 | disposition home or self-care (01) ==
PROVIDERS: Emergency Provider Physician Assistant; PCP Physician Assistant Medical
DX: S93.505A Unspecified sprain of left lesser toe(s), initial encounter (principal); W22.8XXA Striking against or struck by other objects, initial encounter
CPT/HCPCS: 29515; 99283; 73630; 99282

== ENCOUNTER 2018-12-27 20:48 | Outpatient (REF) | payer MEDICAID, SELFPAY | END 2018-12-27 21:08 | LOC: LBN 20:48 | PROVIDERS: PCP Physician Assistant Medical; Visit Provider Nurse Practitioner Gerontology | DX: N20.1 Calculus of ureter (principal) | CPT/HCPCS: 87077; 87086; 87186 ==

== ENCOUNTER 2019-01-12 09:51 | Outpatient (CLI) | payer MEDICAID, SELFPAY ==
--- NOTE | 2019-01-12 10:22 | DI.RAD_ITS ---
EXAM: XR CERVICAL SP GRIJALVA TRAUMA 2-3V CLINICAL HISTORY: CERVICAL DISC DISORDER, M50.90 TECHNIQUE: Six views were obtained. COMPARISON: No exams were available for comparison FINDINGS: There is some straightening of the cervical lordosis. Tracheolaryngeal air shadow appears intact. T here is disc space narrowing at C5-6 with endplate hypertrophic changes noted at this level as well. There is no evidence of acute fracture or dislocation. IMPRESSION: Degenerative changes, most prominent at C5-6. No other significant findings.
--- NOTE | 2019-01-12 10:41 | DI.RAD_ITS ---
EXAM: XR SHOULDER RT COMPLETE 2+V CLINICAL HISTORY: M25.519 PAIN SHOULDER TECHNIQUE: Five views were obtained. COMPARISON: No exams were available for comparison FINDINGS: There is minimal hypertrophic degenerative change of acromioclavicular and glenohumeral joints. No o ther bony or soft tissue abnormality is seen.
== END 2019-01-12 10:11 ==
PROVIDERS: PCP Physician Assistant Medical; Visit Provider Physician Assistant Medical
DX: M50.322 Other cervical disc degeneration at C5-C6 level (principal); M25.511 Pain in right shoulder
CPT/HCPCS: 72040; 73030

== ENCOUNTER 2019-01-14 18:51 | Emergency (ER) | payer MEDICAID, SELFPAY ==
[2019-01-14 18:57] VITALS: BP 168/116; PULSE 98; RESP 18; TEMP 36.8; O2SAT 98
[2019-01-14] MEDS: Dexamethasone 4 MG TAB 10 MG PO (20:40)
--- NOTE | 2019-01-15 21:27 | ED.GENADUL_ITS ---
Discharge Plan Disposition Patient Disposition: HOME Condition: Good Discharge Details Chief Complaint: Sorethroat Clinical Impression: Acute sore throat Primary Care Provider: Elizabeth Benton ED Provider: Mary Crawford Home Meds and New Rx's Prescriptions: No Action verapamil 120 mg tablet extended release 120 mg PO DAILY Qty: 30 RF: 5 prochlorperazine maleate 5 mg tablet See Rx Instructions PO Q8H PRN Qty: 60 RF: 0 potassium citrate [Urocit-K 15] 15 mEq tablet extended release 15 meq PO BID Qty: 60 RF: 6 ranitidine HCl 300 mg capsule 300 mg PO DAILY RF: 0 Narcan 4 mg/actuation spray,non-aerosol 1 spray LOGAN ONCE PRNRF: 0 pantoprazole [Protonix] 20 MG tablet,delayed release (DR/EC) 40 mg PO DAILY RF: 0 alprazolam [Xanax] 1 mg Tablet 1 mg PO HS RF: 0 metoprolol succinate 100 mg Tablet Extended Release 24 Hr 100 mg PO DAILY RF: 0 zolpidem 10 MG tablet 10 mg PO HS PRN PRNRF: 0 oxycodone 10 mg Tablet 10 mg PO QID RF: 0 Discharge Instructions Instructions: Mononucleosis (ED), Pharyngitis (ED) Additional Instructions: Drink plenty of fluids. Consider Cepacol lozenge for comfort. Use Tylenol for soreness if needed. Full throat culture pending. Follow-up with your doctor on as scheduled. Have outpatient labs drawn and followed up with PCP. Return for worsening, concerns or alarming symptoms sooner if needed Discharge Data Discharge Date/Time-TO BE ENTERED AT DEPARTURE: 01/14/19 20:45 Medical Decision Making 38-year-old patient presents with complaints of sore throat for the last 3 days with lacks viral symptoms. Strep testing is negative. Given patient's moderate cervical lymphadenopathy mono tested was ordered. It was reported back to me that there are no mono tests available in the hospital at this time. Outpatient lab slip be provided the patient for mono testing to be followed up with PCP. Precautions regarding mono were discussed. Avoidance of abdominal trauma discussed. Initial dose of Decadron given for symptomatic relief. Patient does have a follow-up appointment this week with her PCP. Patient tolerating fluids by mouth. Conservative treatments discussed. Full throat culture pending. The patient was stable and requested discharge. Prior to discharge, my usual and customary return precautions were reviewed with the patient - this included follow-up instructions and reasons to return to the Emergency Department if conditions worsens, does not improve as expected, or other new concerns arise. HPI General Date/Time Provider Initiated Documentation: 01/14/19 19:17 . HPI Narrative: Is a 38-year-old patient presents the emergency room for 3 days of sore throat. Patient does report a history of strep several times in the past. Patient reports painful swallowing worse on the left. Patient reports she is able to eat and drink but has had decreased p.o. intake for the last few days. Patient reports she is urinating. Denies significant nasal congestion or ear pain. Denies cough. No measured fever or chills. No other concerns or complaints this time. Was concerned with the possibility of strep throat. No voice change or trismus. Related Data Home Medications Medication Instructions Recorded Confirmed pantoprazole [Protonix] 40 mg PO DAILY 10/01/16 01/14/19 zolpidem 10 mg PO HS PRN PRN 05/26/17 01/14/19 naloxone 4 mg/actuation nasal spray 1 spray LOGAN ONCE PRN 04/19/18 01/14/19 ranitidine HCl 300 mg capsule 300 mg PO DAILY 04/19/18 12/27/18 prochlorperazine maleate 5 mg See Rx Instructions PO Q8H PRN #60 04/22/18 01/14/19 tablet tab verapamil 120 mg tablet,extended 120 mg PO DAILY #30 tab 04/22/18 01/14/19 release alprazolam [Xanax] 1 mg PO HS 07/17/18 01/14/19 metoprolol succinate 100 mg PO DAILY 08/23/18 01/14/19 potassium citrate 15 mEq (1,620 15 meq PO BID #60 tab 12/27/18 01/14/19 mg) tablet,extended release oxycodone 10 mg PO QID 01/14/19 01/14/19 Previous Rx's Medication Instructions Recorded prochlorperazine maleate 5 mg See Rx Instructions PO Q8H PRN #60 04/22/18 tablet tab verapamil 120 mg tablet,extended 120 mg PO DAILY #30 tab 04/22/18 release potassium citrate 15 mEq (1,620 15 meq PO BID #60 tab 12/27/18 mg) tablet,extended release Allergies Allergy/AdvReac Type Severity Reaction Status Date / Time prednisone Allergy Intermediate Verified 01/14/19 19:03 codeine AdvReac Mild Nausea Verified 01/14/19 19:03 morphine AdvReac Mild Nausea Verified 01/14/19 19:03 tramadol HCl [From Ultram] AdvReac Mild Nausea Verified 01/14/19 19:03 tegaderm tape AdvReac Intermediate ariza my Uncoded 01/14/19 19:03 skin General Stated Complaint: Sorethroat JOEL: 4 Review of Systems All systems reviewed & are unremarkable except as noted in HPI and below Constitutional Constitutional: Denies chills, Denies fatigue, Denies fever(s) and Denies headache(s) ENT Ears, Nose, Mouth, and Throat: Denies dizziness, Denies headache(s), Denies nasa l congestion, Denies sinus pain, Denies sinus pressure and Reports sore throat Respiratory Respiratory: Denies cough and Denies wheezing Gastrointestinal Gastrointestinal: Denies abdominal pain, Denies nausea and Denies vomiting Neurologic Neurologic: Denies dizziness and Denies headache(s) Endocrine Endocrine: Denies fatigue Allergic/Immunologic Allergic/Immunologic: Denies wheezing PFSH Medical History Abdominal pain (Resolved) Active asthma ADD (attention deficit disorder) Affective bipolar disorder Amenorrhea Bilateral kidney stones (Acute) Causalgia of left upper extremity (Resolved) Cervical disc disease Chest pain at rest (Resolved) Chronic headache (Chronic) Chronic insomnia Chronic pain (Chronic) Chronic wrist pain (Resolved) Cold sore (Resolved) Conversion disorder tremor, stutter, weakness CVA tenderness (Resolved) Depression with anxiety Dizziness (Resolved) Essential tremor (Resolved) Gastritis Headache, chronic migraine without aura (Chronic) Carcamo sign present (Resolved) Hydronephrosis (Resolved) Hyperreflexia (Resolved) Kidney stones (Resolved) Knee pain (Resolved) Left-sided thoracic back pain (Resolved) Medication overuse headache (Chronic) Memory loss (Resolved) Migraines (Resolved) Neuralgia (Resolved) Numbness and tingling (Resolved) Psychogenic tremor (Chronic) Rectal bleeding Right arm weakness (Resolved) Speech problem (Resolved) Upper respiratory infection (Resolved) Ureteral calculi (Resolved) Social History Smoking/Tobacco Use Status: Current every day Tobacco Type: cigarettes Smoking packs per day: 1 Smoking cigarettes per day: 20.0 Years smoked: 20 Smoking pack- years: 20.00 Alcohol Intake: never Drug use: Never Substance use type: does not use Household members: significant other and children Number of Children: 1 Do you feel safe at home: Yes Do you feel safe in your relationship?: Yes Exam Narrative Exam Narrative: CONST: Healthy appearing patient, in no acute distress. Well hydrated. Alert and alert. HENMT: Head nomocephalic, normal to inspection. Atraumatic. Hearing grossly normal. Pharyngeal erythema present, exudate noted in the left tonsil. No significant uvula edema. EYES: General normal appearance. Alignment normal. Eyelids normal. Conjunctiva normal. NECK: Normal visual inspection. FROM. Trachea midline. No Midline tenderness. Cervical lymphadenopathy present bilaterally CHEST: Normal insepection of the chest. RESP: Normal respiratory effort. Speaking full sentences. No cough. No audible wheezing. No retractions. Breath sounds clear and equal bilaterally. No wheezes, rhonchi or rales. CARDIO: No JVD. GI: Abdomen is soft, nontender. No splenomegaly noted on exam. No peritoneal signs, rebound or guarding SKIN: Normal. Dry. No rashes. NEURO: Alert and awake. Speech clear. PSYCH: Normal affect. Cooperative. Course Vital Signs Vital signs: Vital Signs Temperature 36.8 C 01/14/19 18:57 Pulse 98 H 01/14/19 18:57 Respiratory Rate 18 01/14/19 18:57 Blood Pressure 168/116 H 01/14/19 18:57 Pulse Oximetry 98 01/14/19 18:57 Temperature 36.8 C 01/14/19 18:57 Temperature Source Temporal Artery Scan 01/14/19 18:57 Pulse 98 H 01/14/19 18:57 Respiratory Rate 18 01/14/19 18:57 Respiratory Effort 01/14/19 18:57 Blood Pressure 168/116 H 01/14/19 18:57 Blood Pressure Position Sitting 01/14/19 18:57 Pulse Oximetry 98 01/14/19 18:57 Oxygen Delivery Method Room Air 01/14/19 18:57 Oxygen Flow Rate 0 01/14/19 18:57 Pain Level 3 01/14/19 20:44 Lab/Test Results Lab/Test Results: POC Strep Test-CARLOS(Rapid) Start: 01/14/19 19:13 Freq: .Rapid Strep Test Status: Active Protocol: Document 01/14/19 19:15 VD (Rec: 01/14/19 19:15 VD [id number]) Strep test-CARLOS(Rapid)-POC POC-Strep test-CARLOS (Rapid) Negative POC-Strep test-CARLOS (Rapid) Negative
== END 2019-01-14 20:45 | disposition home or self-care (01) ==
PROVIDERS: Emergency Provider Physician Assistant; PCP Physician Assistant Medical
DX: J02.9 Acute pharyngitis, unspecified (principal); F17.210 Nicotine dependence, cigarettes, uncomplicated
CPT/HCPCS: 87880; 99283; J8540

== ENCOUNTER 2019-01-19 11:30 | Outpatient (CLI) | payer MEDICAID, SELFPAY ==
[2019-01-19 11:56] LABS: Mono Screening Negative (Negative)
== END 2019-01-19 11:50 ==
PROVIDERS: PCP Physician Assistant Medical; Visit Provider Physician Assistant
DX: J02.9 Acute pharyngitis, unspecified (principal)
CPT/HCPCS: 36415; 86308

== ENCOUNTER 2019-01-31 02:15 | Outpatient (CLI) | payer MEDICAID, SELFPAY ==
--- NOTE | 2019-01-31 14:15 | DI.MRI_ITS ---
EXAM: MR CERVICAL SPINE WO CLINICAL HISTORY: CERVICAL DISC DISORDER M50.90. TECHNIQUE: Multiplanar multisequence MRI was performed. COMPARISON: No exams were available for comparison FINDINGS: There is mild loss of disc height and concentric disc bulging at C5-6. There are small endplate os teophytes. There is left neural foraminal narrowing. The remaining discs are well maintained in hei ght and show no significant bulging. There is no significant neural foraminal narrowing other than a t C5-6. The cord signal and marrow signal appear normal. IMPRESSION: Degenerative disc changes cause left neural foraminal narrowing at C5-6.
== END 2019-01-31 02:35 ==
PROVIDERS: PCP Physician Assistant Medical; Visit Provider Physician Assistant Medical
DX: M50.322 Other cervical disc degeneration at C5-C6 level (principal)
CPT/HCPCS: 72141

== ENCOUNTER 2019-05-30 01:41 | Outpatient (CLI) | payer MEDICAID, SELFPAY ==
--- NOTE | 2019-05-30 09:45 | DI.MRI_ITS ---
EXAM: MR UPPER JOINT LT WO CLINICAL HISTORY: LT SHOULDER PAIN, M25.512, WORSENING WI LIMITED ROM, M25.60, ?ROT CUFF TEAR. TECHNIQUE: Multiplanar multisequence MRI was performed. COMPARISON: No exams were available for comparison FINDINGS: MR examination shoulder was performed according to the usual protocol. Bones: No bony signal abnormality seen. No evidence of impingement. Labrum: Glenoid labrum grossly unremarkable by noncontrast criteria. Minimal fluid in glenohumeral j oint space, presumably physiologic. Rotator cuff: Trace abnormal signal in supraspinatus tendon predominantly near the distal attachment, otherwise normal signal of rotator cuff components without evidence tear. Biceps mechanism: No abnormality of the biceps tendon or anchor. Biceps tendon is normally positione d. IMPRESSION: Trace supraspinatus tendinosis. Examination is otherwise within normal limits. No evidence of a rot ator cuff tear. DATA REPOSITORY:
== END 2019-05-30 02:01 ==
PROVIDERS: PCP Physician Assistant Medical; Visit Provider Neurological Surgery
DX: M25.512 Pain in left shoulder (principal); M75.82 Other shoulder lesions, left shoulder; M25.612 Stiffness of left shoulder, not elsewhere classified
CPT/HCPCS: 73221

== ENCOUNTER 2019-07-19 22:03 | Emergency (ER) | payer MEDICAID, SELFPAY ==
[2019-07-19 22:51] VITALS: BP 159/120; PULSE 72; RESP 18; TEMP 36.3; O2SAT 97
--- NOTE | 2019-07-19 23:28 | ED.GENADUL_ITS ---
Discharge Plan Disposition Patient Disposition: HOME Condition: Stable Discharge Details Chief Complaint: Orthopedic Clinical Impression: Tendinitis Primary Care Provider: Elizabeth Benton ED Provider: Mary Crawford Home Meds and New Rx's Prescriptions: No Action verapamil 120 mg tablet extended release 120 mg PO DAILY Qty: 30 RF: 5 prochlorperazine maleate 5 mg tablet See Rx Instructions PO Q8H PRN Qty: 60 RF: 0 potassium citrate [Urocit-K 15] 15 mEq tablet extended release 15 meq PO BID Qty: 60 RF: 6 ranitidine HCl 300 mg capsule 300 mg PO DAILY RF: 0 Narcan 4 mg/actuation spray,non-aerosol 1 spray LOGAN ONCE PRNRF: 0 pantoprazole [Protonix] 20 MG tablet,delayed release (DR/EC) 40 mg PO DAILY RF: 0 alprazolam [Xanax] 1 mg Tablet 1 mg PO HS RF: 0 metoprolol succinate 100 mg Tablet Extended Release 24 Hr 100 mg PO DAILY RF: 0 zolpidem 10 MG tablet 10 mg PO HS PRN PRNRF: 0 oxycodone 10 mg Tablet 10 mg PO QID RF: 0 Discharge Instructions Instructions: Tendinitis (ED) Additional Instructions: Rest. Activities as tolerated. Wrist splint at night for one week. Consider Ice massage as discussed 3-5 times daily. for 5-10 min Elevate injury to prevent swelling. Motrin every 8 hours with food or Tylenol every 6 hours for soreness if needed over the counter for comfort. Followup with orthopedic doctor as discussed if not improving in one week. Your blood pressure is notably elevated today. Please observe for any alarming symptoms, return to the emergency room for any concerns. Please recheck with your PCP for elevated blood pressure as discussed. Return for any worsening or concerns sooner if needed. Referrals: Abel Andrew MD [ [facility]YSICIAN] - Discharge Data Discharge Date/Time-TO BE ENTERED AT DEPARTURE: 07/19/19 23:30 Medical Decision Making This is a 39-year-old patient with a history of cervical radiculopathy who presents for complaints of left forearm pain which began 2 weeks ago. Patient reports she sleeps on the left arm beneath her head. Patient reports she awoke with numbness in her hand and pain in her forearm. Patient denies any obvious injury or trauma. Patient reports she had mild forearm pain which has persisted over 2 weeks intermittently. Patient does report pain is somewhat progressed since onset. Patient does report intermittent numbness and tingling of thumb, second and third digits. Patient denies any numbness at this time. Patient has full strength on exam. Patient has intact neurologic sensation to sharp and dull on exam. Patient does have medial epicondyle tenderness along with forearm pain consistent with tendinitis. Although differential diagnosis does include cervical radiculopathy this patient does not feel she likely is experiencing cervical radicular pain as she has no current neck pain and neck pain has been well controlled last few weeks. Patient is due to have EMG testing. After discussion with the patient and using shared decision making process with no history of injury or trauma to the forearm she does not feel imaging is necessary at this time. Patient is on chronic pain medication. She reports she takes 10 mg of oxycodone daily. Patient reports persistent pain despite. Discussed the possibility of forearm tendinitis versus radicular pain. Patient feels comfortable continuing her daily medication. Will recommend wrist splinting. Patient also recommended forearm strap. Recommend ice massage. Discussed use of anti-inflammatories. Patient does have prednisone listed on her allergies. Patient agrees with this plan of care. Patient does have an MRI on record of her C-spine from 01/31/2019 revealing: Degenerative disc changes cause left neural foraminal narrowing at C5-6. Patient is comfortable with plan to trial rice and splinting and if not improved follow-up with PCP. The patient was stable and requested discharge. Prior to discharge, my usual and customary return precautions were reviewed with the patient - this included follow-up instructions and reasons to return to the Emergency Department if conditions worsens, does not improve as expected, or other new concerns arise. HPI General Date/Time Provider Initiated Documentation: 07/19/19 22:05 . HPI Narrative: Is a 39-year-old patient presenting to the emergency room for complaints of left forearm pain. Patient indicates left elbow to wrist as site of pain. Patient reports 2 weeks of discomfort which began slowly. Patient denies any obvious injury or trauma. Patient does report some chronic neck pain which is improved at this time. Denies any neck shoulder or upper arm complaints. Patient does report intermittent numbness of the first 3 fingers specifically thumb and first 2 digits. Patient denies any numbness at this time. Patient does report that this began after she awoke with some numbness and or tingling and she was sleeping on the affected arm under her head. Patient reports this is her typical sleeping position. Denies any obvious history of forearm pain in the pa st. Patient does report pain is significantly worse with flexion and extension. Pain with palpation of the forearm. Patient denies any obvious swelling of the arm she did remove her rings due to mild sensation of tightness but no obvious swelling is present. Patient denies any discoloration or skin changes of the arm. Patient denies fevers or chills. Patient does not feel this is related to her neck as she currently has no neck or upper arm symptoms. Patient denies any headaches or dizziness. Denies any active neck pain. Denies any injury or trauma. Denies any fevers, chills, nausea, vomiting. Denies any focal weakness. Denies any joint swelling or obvious joint pain. No rashes or skin changes. Related Data Home Medications Medication Instructions Recorded Confirmed pantoprazole [Protonix] 40 mg PO DAILY 10/01/16 01/14/19 zolpidem 10 mg PO HS PRN PRN 05/26/17 01/14/19 naloxone 4 mg/actuation nasal spray 1 spray LOGAN ONCE PRN 04/19/18 01/14/19 ranitidine HCl 300 mg capsule 300 mg PO DAILY 04/19/18 12/27/18 prochlorperazine maleate 5 mg See Rx Instructions PO Q8H PRN #60 04/22/18 01/14/19 tablet tab verapamil 120 mg tablet,extended 120 mg PO DAILY #30 tab 04/22/18 01/14/19 release alprazolam [Xanax] 1 mg PO HS 07/17/18 01/14/19 metoprolol succinate 100 mg PO DAILY 08/23/18 01/14/19 potassium citrate 15 mEq (1,620 15 meq PO BID #60 tab 12/27/18 01/14/19 mg) tablet,extended release oxycodone 10 mg PO QID 01/14/19 01/14/19 Previous Rx's Medication Instructions Recorded prochlorperazine maleate 5 mg See Rx Instructions PO Q8H PRN #60 04/22/18 tablet tab verapamil 120 mg tablet,extended 120 mg PO DAILY #30 tab 04/22/18 release potassium citrate 15 mEq (1,620 15 meq PO BID #60 tab 12/27/18 mg) tablet,extended release Allergies Allergy/AdvReac Type Severity Reaction Status Date / Time prednisone Allergy Intermediate Verified 01/14/19 19:03 codeine AdvReac Mild Nausea Verified 01/14/19 19:03 morphine AdvReac Mild Nausea Verified 01/14/19 19:03 tramadol HCl [From Ultram] AdvReac Mild Nausea Verified 01/14/19 19:03 tegaderm tape AdvReac Intermediate ariza my Uncoded 01/14/19 19:03 skin General Stated Complaint: Orthopedic JOEL: 4 Review of Systems All systems reviewed & are unremarkable except as noted in HPI and below PFSH Medical History Abdominal pain (Resolved) Active asthma ADD (attention deficit disorder) Affective bipolar disorder Amenorrhea Bilateral kidney stones (Acute) Causalgia of left upper extremity (Resolved) Cervical disc disease Chest pain at rest (Resolved) Chronic headache (Chronic) Chronic insomnia Chronic pain (Chronic) Chronic wrist pain (Resolved) Cold sore (Resolved) Conversion disorder tremor, stutter, weakness CVA tenderness (Resolved) Depression with anxiety Dizziness (Resolved) Essential tremor (Resolved) Gastritis Headache, chronic migraine without aura (Chronic) Carcamo sign present (Resolved) Hydronephrosis (Resolved) Hyperreflexia (Resolved) Kidney stones (Resolved) Knee pain (Resolved) Left-sided thoracic back pain (Resolved) Medication overuse headache (Chronic) Memory loss (Resolved) Migraines (Resolved) Neuralgia (Resolved) Numbness and tingling (Resolved) Psychogenic tremor (Chronic) Rectal bleeding Right arm weakness (Resolved) Speech problem (Resolved) Upper respiratory infection (Resolved) Ureteral calculi (Resolved) Social History Smoking/Tobacco Use Status: Current every day Tobacco Type: cigarettes Smoking packs per day: 1 Smoking cigarettes per day: 20.0 Years smoked: 20 Smoking pack- years: 20.00 Alcohol Intake: never Drug use: Never Substance use type: does not use Household members: significant other and children Number of Children: 1 Do you feel safe at home: Yes Do you feel safe in your relationship?: Yes Exam Narrative Exam Narrative: CONST: Healthy appearing patient, in no acute distress. Well hydrated. Alert and oriented. HENMT: Head nomocephalic, normal to inspection. Atraumatic. Hearing grossly normal. EYES: General normal appearance. Alignment normal. Eyelids normal. Conjunctiva normal. NECK: Normal visual inspection. FROM. Trachea midline. No Midline tenderness. CHEST: Normal insepection of the chest. RESP: Normal respiratory effort. Speaking full sentences. No cough. No audible wheezing. No retractions. CARDIO: No JVD. MUSCULOSKELETAL: Normal Gait. FROM of all extremities. Focused exam of left arm. No shoulder pain with palpation the humeral pain with palpation. Strength intact at triceps. Strength intact at biceps. Medial epicondyle tenderness noted at the elbow, lacks lateral or olecranon tenderness. Forearm pain with palpation throughout the anterior forearm tendons. No significant posterior arm pain with palpation. Pain is reproduced with wrist flexion and extension. No focal weakness. Sensation intact to sharp and dull throughout the hand and forearm. Cap refill normal. No hand pain with palpation. Hub Cutter Apprentice strength intact. Able to make okay sign, spread fingers, and dorsiflex wrist with full strength. Hub Cutter Apprentice strength intact. SKIN: Normal. Dry. No rashes. No wounds. NEURO: Alert and awake. Speech clear. PSYCH: Normal affect. Cooperative. Course Vital Signs Vital signs: Vital Signs Temperature 36.3 C L 07/19/19 22:51 Pulse 72 07/19/19 22:51 Respiratory Rate 18 07/19/19 22:51 Blood Pressure 159/120 H 07/19/19 22:51 Pulse Oximetry 97 07/19/19 22:51 Temperature 36.3 C L 07/19/19 22:51 Temperature Source Tympanic 07/19/19 22:51 Pulse 72 07/19/19 22:51 Respiratory Rate 18 07/19/19 22:51 Blood Pressure 159/120 H 07/19/19 22:51 Blood Pressure Position Supine 07/19/19 22:51 Pulse Oximetry 97 07/19/19 22:51 Oxygen Delivery Method Room Air 07/19/19 22:51 Oxygen Flow Rate 0 07/19/19 22:51 Pain Level 7 07/19/19 22:51
== END 2019-07-19 23:30 | disposition home or self-care (01) ==
LOC: ER 23:23
PROVIDERS: Emergency Provider Physician Assistant; PCP Physician Assistant Medical
DX: M54.12 Radiculopathy, cervical region (principal); M77.9 Enthesopathy, unspecified; R20.0 Anesthesia of skin; R03.0 Elevated blood-pressure reading, without diagnosis of hypertension
CPT/HCPCS: 29125; 99283; L3908

== ENCOUNTER 2019-09-12 00:19 | Outpatient (CLI) | payer MEDICAID, SELFPAY ==
--- NOTE | 2019-09-12 08:15 | DI.MRI_ITS ---
EXAM: MR UPPER JOINT LT WO CLINICAL HISTORY: PAIN-L ELBOW/FOREARM, biceps tendinitis, M75.22. TECHNIQUE: Multiplanar multisequence MRI was performed. CONTRAST MATERIAL: Noncontrast. COMPARISON: None. FINDINGS: The biceps and brachialis tendons appear intact. There is no surrounding fluid. The muscle signal a nd marrow signal are normal. The triceps tendon common flexor and common extensor tendons also appea r intact. There is a normal quantity of joint fluid. IMPRESSION: Unremarkable MRI the left elbow. DATA REPOSITORY:
== END 2019-09-12 00:39 ==
PROVIDERS: PCP Physician Assistant Medical; Visit Provider Orthopaedic Surgery
DX: M25.522 Pain in left elbow (principal); M79.632 Pain in left forearm; M75.22 Bicipital tendinitis, left shoulder
CPT/HCPCS: 73221

== ENCOUNTER 2019-09-16 22:13 | Emergency (ER) | payer MEDICAID, SELFPAY ==
[2019-09-16] VITALS (21 sets, daily range): BP systolic 147–178; BP diastolic 93–132; PULSE 78–87; RESP 12–31; TEMP 36.7; O2SAT 94–98
--- NOTE | 2019-09-16 22:15 | RT.EKG_ITS ---
APPROVED REPORT Exam: Resting ECG Patient Location: E HR:82 bpm ECG Measurements Heart Rate 82 AXIS LA 192 P 29 QRSd 76 QRS 17 QT 357 T -18 QTc 416 <Conclusion> Sinus rhythm...normal P axis, V-rate 60- 99 Borderline T abnormalities, diffuse leads...T flat/neg Normal [place] I have reviewed and interpreted ECG and agree with software generated interpretation.
[2019-09-16 22:45] LABS: Abs Immature Grans 0.02 k/cumm (0.0-0.09); Absolute Basophil Count 0.03 k/cumm (0.0-0.2); Absolute Eosinophil Count 0.28 k/cumm (0.0-0.7); Absolute Lymphocyte Count 2.94 k/cumm (1.2-3.4); Absolute Neutrophil Count 5.83 k/cumm (1.2-6.7); Basophils % 0.3; Eosinophils % 2.8; HCT 40.1 % (36.0-46.0); HGB 13.3 g/dL (12.0-15.5); Immature Grans % 0.2 %; Lymphocytes % 29.7; Mean Corp. HGB Concentration 33.2 g/dL (32.0-36.0); Mean Corpuscular Hemoglobin 30.8 pg (27.0-33.0); Mean Corpuscular Volume 92.8 fL (80-95); Mean Platelet Volume 9.6 fL (8.0-11.0); Monocytes % 8.1; Neutrophils % 58.9; Platelet Count 293 x1000/uL (130-400); RBC 4.32 m/cumm (4.00-5.20); RBC Distribution Width 13.2 % (11.7-14.6)
[2019-09-16] MEDS: Aspirin 81 MG CHEW 324 MG CH (22:48)
[2019-09-16] MEDS: Ondansetron 4 MG/2 ML VIAL IVP (22:48)
--- NOTE | 2019-09-16 22:48 | W.ED.GENAD ---
Discharge Plan Disposition Patient Disposition: HOME Condition: Good Discharge Details Chief Complaint: Chest Pain Clinical Impression: Hypertension, Chest pressure Primary Care Provider: Elizabeth Benton ED Provider: Marco Zamudio Baxter Meds and New Rx's Prescriptions: Continued potassium citrate [Urocit-K 15] 15 mEq tablet extended release 15 meq PO BID Qty: 60 RF: 6 Narcan 4 mg/actuation spray,non-aerosol 1 spray LOGAN ONCE PRNRF: 0 pantoprazole [Protonix] 20 MG tablet,delayed release (DR/EC) 40 mg PO DAILY RF: 0 alprazolam [Xanax] 1 mg Tablet 1 mg PO HS RF: 0 zolpidem 10 MG tablet 10 mg PO HS PRN PRNRF: 0 oxycodone 10 mg Tablet 10 mg PO QID RF: 0 No Action verapamil 120 mg tablet extended release 240 mg PO DAILY RF: 0 enalapril maleate 5 mg tablet 5 mg PO DAILY RF: 0 lidocaine [Lidoderm] 1 PATCH patch 1 patch Topical Q24H Qty: 4 RF: 0 Discharge Instructions Instructions: Chest Pain (ED), Hypertension (ED) Additional Instructions: Your EKGs and laboratory studies were okay tonight. Try taking your metoprolol in the morning and your verapamil at night over the weekend and see if this helps control your blood pressure better. Contact primary care Thursday for follow-up both for blood pressure medication adjustment if needed as well as consideration of outpatient stress testing for the chest pressure today. Return to ED for new or worsening pain, shortness of breath, markedly elevated blood pressures that are persistently high, neurologic changes. Referrals: Elizabeth Benton [Primary Care Provider] - Discharge Data Discharge Date/Time-TO BE ENTERED AT DEPARTURE: 09/17/19 02:10 Medical Decision Making <Cici Malin - Last Filed: 09/28/19 08:31> 39-year-old female presents the ED chief complaint of left-sided chest pressure which radiates up into her neck. This started around 1900 tonight after waking up from a nap. She rates pain 3 or 4 out of 10 this is associated with increased blood pressure over the last 2 to 3 weeks. Patient does have a history of hypertension takes 100 mg metoprolol p.o. daily, 120 mg verapamil. Patient states that today she took an extra 50 mg of metoprolol at 2 PM as instructed by her primary care provider. She denies anything making it better or worse, associated symptoms include nausea, denies fever no cough no blurry vision she does report a mild headache which she has been having for the last 2 to 3 weeks as well. Upon initial presentation she has her left elbow in a sling which she states that she had an MRI on her elbow on Thursday and has been seeing Dr. Duran for this. 2228: EKG was reviewed by Dr. Allen Zamudio MD ER attending, rate of 82, normal sinus rhythm, nonspecific T wave abnormality. Old EKG was available for review and is largely unchanged. 2235: Initial work-up CBC, CMP is largely within normal limits, initial troponin is within normal limits less than 0.05, one-view portable chest x-ray ordered. Imaging protocol: XR of the chest Views: 1 view. COMPARISON: No relevant prior studies available. FINDINGS: Lungs: Unremarkable. No consolidation. Pleural space: Unremarkable. No pleural effusion. No pneumothorax. Heart/Mediastinum: Unremarkable. No cardiomegaly. Bones/joints: Unremarkable. IMPRESSION: No acute findings. Thank you for allowing us to participate in the care of your patient. Dictated and Authenticated by: Vadim Vigil MD 2346: Reevaluation blood pressure is now 149/98 after 0.4 mg sublingual nitro x3. Chest pain decreased somewhat and brought pain down from a 3 to a 2/10. Repeat troponin set to be repeated at 1:30 in the morning. Care is to be handed off to Dr. Zamudio ER attending MD pending serial troponin and reevaluation. Patient was hemodynamically stable at the time of this dictation. This text was generated using [employer] system, please disregard any oddities of phrase or misspellings. <Marco Zamudio MD - Last Filed: 09/17/19 02:11> Patient seen primarily by nurse practitioner Dea. Patient discussed with me. EKGs read by me. Agree with evaluation and management as outlined by nurse practitioner Dea. Patient signed out to me pending repeat EKG and troponin which are fine. Patient does feel better. Will not change medication dosing at this point. We will have her try taking the beta-damon in the morning and the calcium channel damon at night. Can follow-up with primary care next week for both blood pressure medication adjustment as well as consideration of outpatient stress testing for the chest discomfort tonight. Lab Data Lab results reviewed: Yes I reviewed the patient's lab results. ECG Data Interpretation: Please see EKG reports. HPI <Cici Malin - Last Filed: 09/28/19 08:31> General Mode of arrival: ambulatory. Date/Time Provider Initiated Documentation: 09/16/19 22:14. Limitations to Documentation: no limitations. Information obtained by: patient. HPI Narrative: 39-year-old female presents the ED chief complaint of left-sided chest pressure which radiates up into her neck. This started around 1900 tonight after waking up from a nap. She rates pain 3 or 4 out of 10 this is associated with increased blood pressure over the last 2 to 3 weeks. Patient does have a history of hypertension takes 100 mg metoprolol p.o. daily, 120 mg verapamil. Patient states that today she took an extra 50 mg of metoprolol at 2 PM as instructed by her primary care provider. She denies anything making it better or worse, associated symptoms include nausea, denies fever no cough no blurry vision she does report a mild headache which she has been having for the last 2 to 3 weeks as well. Upon initial presentation she has her left elbow in a sling which she states that she had an MRI on her elbow on Thursday and has been seeing Dr. Duran for this. Related Data Home Medications Medication Instructions Recorded Confirmed pantoprazole [Protonix] 40 mg PO DAILY 10/01/16 09/16/19 zolpidem 10 mg PO HS PRN PRN 05/26/17 09/16/19 naloxone 4 mg/actuation nasal spray 1 spray LOGAN ONCE PRN 04/19/18 09/16/19 alprazolam [Xanax] 1 mg PO HS 07/17/18 09/16/19 potassium citrate 15 mEq (1,620 15 meq PO BID #60 tab 12/27/18 09/16/19 mg) tablet,extended release oxycodone 10 mg PO QID 01/14/19 09/16/19 lidocaine [Lidoderm] 1 patch TOPICAL Q24H #4 patch 09/19/19 enalapril maleate 5 mg tablet 5 mg PO DAILY 09/21/19 09/21/19 verapamil 120 mg tablet,extended 240 mg PO DAILY tab 09/21/19 release Previous Rx's Medication Instructions Recorded potassium citrate 15 mEq (1,620 15 meq PO BID #60 tab 12/27/18 mg) tablet,extended release lidocaine [Lidoderm] 1 patch TOPICAL Q24H #4 patch 09/19/19 Allergies Allergy/AdvReac Type Severity Reaction Status Date / Time prednisone Allergy Intermediate Verified 09/16/19 22:29 codeine AdvReac Mild Nausea Verified 09/16/19 22:29 morphine AdvReac Mild Nausea Verified 09/16/19 22:29 tramadol HCl [From Ultram] AdvReac Mild Nausea Verified 09/16/19 22:29 tegaderm tape AdvReac Intermediate ariza my Uncoded 09/16/19 22:29 skin General Stated Complaint: Chest Pain JOEL: 2 Review of Systems <Cici Malin - Last Filed: 09/28/19 08:31> Narrative: Constitutional: Negative for weight loss, alert and oriented, well groomed, normal body habitus, appears comfortable. HEENT: Denies trauma, , blurry vision, nasal discharge, sore throat, trouble swallowing. Chest: Denies palpitations, irregular rhythm, positive chest pressure which radiates up into her neck positive history of hypertension. Respiratory: Denies Shortness of breath, cough, hemoptysis. GI: Denies abdominal pain, vomiting, diarrhea, constipation. Positive nausea. : Denies dysuria, hematuria, flank pain, rectal bleeding. Neuro: Denies dizziness, blurry vision, weakness, syncope, or facial numbness. Positive mild generalized headache. Hematologic: Denies easy bruising, intolerance to heat or cold, hair loss. PFSH <Cici Malin - Last Filed: 09/28/19 08:31> Medical History Abdominal pain (Resolved) Active asthma ADD (attention deficit disorder) Affective bipolar disorder Amenorrhea Bilateral kidney stones (Acute) Causalgia of left upper extremity (Resolved) Cervical disc disease Chest pain at rest (Resolved) Chronic headache (Chronic) Chronic insomnia Chronic pain (Chronic) Chronic wrist pain (Resolved) Cold sore (Resolved) Conversion disorder tremor, stutter, weakness CVA tenderness (Resolved) Depression with anxiety Dizziness (Resolved) Essential tremor (Resolved) Gastritis Headache, chronic migraine without aura (Chronic) Carcamo sign present (Resolved) Hydronephrosis (Resolved) Hyperreflexia (Resolved) Kidney stones (Resolved) Knee pain (Resolved) Left-sided thoracic back pain (Resolved) Medication overuse headache (Chronic) Memory loss (Resolved) Migraines (Resolved) Neuralgia (Resolved) Numbness and tingling (Resolved) Psychogenic tremor (Chronic) Rectal bleeding Right arm weakness (Resolved) Speech problem (Resolved) Upper respiratory infection (Resolved) Ureteral calculi (Resolved) Surgical History Repair of umbilical hernia S/P appendectomy (Acute) S/P cholecystectomy (Acute) S/P knee surgery (Acute) Family History Father Cerebral aneurysm Social History Smoking/Tobacco Use Status: Current every day Tobacco Type: cigarettes Smoking packs per day: 1 Smoking cigarettes per day: 20.0 Years smoked: 20 Smoking pack-years: 20.00 Alcohol Intake: never Drug use: Never Substance use type: does not use Household members: significant other and children Number of Children: 1 Current gender identity: female Do you feel safe at home: Yes Do you feel safe in your relationship?: Yes Exam <Cici Malin - Last Filed: 09/28/19 08:31> Narrative Exam Narrative: Constitutional: Alert and oriented x3. Appears stated age. Overweight body habitus. Head: Normocephalic, no trauma. Eyes: Pupils PERRLA, Red reflex noted, EOM's intact. Eyelids symmetrical without lesions, discharge, or swelling. ENT: Bilateral TM's WNL, External ear normal to inspection, no mastoid TTP, swelling, or erythema, Nasal turbinates WNL, no nasal discharge. Normal dentition, Posterior pharynx WNL, no exudate. Chest: RRR, Normal S1, S2, distal pulses intact. She is hypertensive on initial exam 176/132 Resp: Lungs clear to auscultation bilaterally, no wheezes, rales, or rhonchi. Musculoskeletal: Normal gait, 5/5 strength to all four extremities. Skin: No suspicious rashes or lesions. Capillary refill less than 2 sec. Neurologic: Cranial nerves II-XII intact. Alert and oriented x 3. DTR's intact. Hematologic/Lymphatic: No ecchymosis, no lymphadenopathy. Course <Cici Malin - Last Filed: 09/28/19 08:31> Vital Signs Vital signs: Vital Signs Temperature 36.7 C 09/16/19 22:23 Pulse 87 09/16/19 22:23 Respiratory Rate 20 09/16/19 22:23 Blood Pressure 176/132 H 09/16/19 22:23 Pulse Oximetry 98 09/16/19 22:23 Temperature 36.7 C 09/16/19 22:23 Temperature Source Temporal Artery Scan 09/16/19 22:23 Pulse 87 09/16/19 22:23 Respiratory Rate 20 09/16/19 22:23 Respiratory Effort 09/16/19 22:27 Respiratory Depth Normal 09/16/19 22:27 Respiratory Pattern Normal 09/16/19 22:27 Blood Pressure 176/132 H 09/16/19 22:23 Blood Pressure Position Sitting 09/16/19 22:23 Pulse Oximetry 98 09/16/19 22:23 Oxygen Delivery Method Room Air 09/16/19 22:23 Oxygen Flow Rate 0 09/16/19 22:23 Lab/Test Results Lab/Test Results: Laboratory Tests Range/Units 09/16/19 22:38 WBC (4.4-10.8) k/cumm 9.90 RBC (4.00-5.20) m/cumm 4.32 Hgb (12.0-15.5) g/dL 13.3 Hct (36.0-46.0) % 40.1 MCV (80-95) fL 92.8 MCH (27.0-33.0) pg 30.8 MCHC (32.0-36.0) g/dL 33.2 RDW (11.7-14.6) % 13.2 Plt Count (130-400) x1000/uL 293 MPV (8.0-11.0) fL 9.6 Immature Gran % % 0.2 Neutrophils % 58.9 Lymphocytes % 29.7 Monocytes % 8.1 Eosinophils % 2.8 Basophils % 0.3 Absolute Neutrophils (1.2-6.7) k/cumm 5.83 Absolute Lymphocytes (1.2-3.4) k/cumm 2.94 Absolute Monocytes (0.11-0.7) k/cumm 0.80 H Absolute Eosinophils (0.0-0.7) k/cumm 0.28 Absolute Basophils (0.0-0.2) k/cumm 0.03 Sign Out <Cici Malin - Last Filed: 09/28/19 08:31> Sign Out Data: Sign Out Comment: Pending serial troponin and reevaluation of patient's blood pressure and symptoms. Last updated by Cici Malin at 09/17/19 00:32
--- NOTE | 2019-09-16 22:59 | DI.RAD_ITS ---
EXAM: XR PORTABLE CHEST AP CLINICAL HISTORY: chest pressure. TECHNIQUE: 2D digital imaging was performed. COMPARISON: No exams were available for comparison FINDINGS: LUNGS: Clear. No pleural abnormality seen. HEART: Normal. MEDIASTINUM: Normal. OTHER FINDINGS: None. IMPRESSION: No acute pulmonary findings. DATA REPOSITORY: RADIATION DOSE DELIVERED:
--- NOTE | 2019-09-16 23:15 | DI.VRAD_ITS ---
PROCEDURE INFORMATION: Exam: XR Chest, 1 View Exam date and time: 09/16/2019 11:00 PM Age: 39 years old Clinical indication: Other: Chest pressure TECHNIQUE: Imaging protocol: XR of the chest Views: 1 view. COMPARISON: No relevant prior studies available. FINDINGS: Lungs: Unremarkable. No consolidation. Pleural space: Unremarkable. No pleural effusion. No pneumothorax. Heart/Mediastinum: Unremarkable. No cardiomegaly. Bones/joints: Unremarkable. IMPRESSION: No acute findings. Dictated and Authenticated by: Vadim Pinon MD. Ordering:MAURICIO Bolanos MD
--- NOTE | 2019-09-16 23:25 | NUR.NOTE ---
Nursing Note:near resolution of pressure. SBP 150's.
[2019-09-16 23:38] LABS: ALT 29 U/L (14-59); AST 22 U/L (15-37); Albumin 3.3 g/dL (3.4-5.0); Alkaline Phosphatase 90 U/L (46-116); Anion Gap 9.8 mmol/L (3-11); BUN 8 mg/dL (7-18); Bilirubin, Total 0.2 mg/dL (0.2-1.0); CO2 27.2 mmol/L (21.0-32.0); CREATININE 0.92 mg/dL (0.55-1.02); Calcium 8.7 mg/dL (8.5-10.1); Chloride 105 mmol/L (98-107); Glucose 103 mg/dL (74-106); Magnesium 1.8 mg/dL (1.8-2.4); Potassium 3.6 mmol/L (3.5-5.1); Sodium 142 mmol/L (136-145)
[2019-09-16 23:39] LABS: Troponin I < 0.05 ng/mL (<0.06)
[2019-09-17] VITALS (14 sets, daily range): BP systolic 143–163; BP diastolic 91–110; PULSE 75–79; RESP 17–33; O2SAT 96–97
--- NOTE | 2019-09-17 01:28 | NUR.NOTE ---
Nursing Note: Second Trop obtained and sent to lab.
--- NOTE | 2019-09-17 01:30 | RT.EKG_ITS ---
APPROVED REPORT Exam: Resting ECG Patient Location: E HR:77 bpm ECG Measurements Heart Rate 77 AXIS SD 176 P 30 QRSd 79 QRS 14 QT 378 T -18 QTc 428 <Conclusion> Sinus rhythm...normal P axis, V-rate 60- 99 Borderline T abnormalities, diffuse leads...T flat/neg Normal [place] I have reviewed and interpreted ECG and agree with software generated interpretation.
[2019-09-17 01:56] LABS: Troponin I < 0.05 ng/mL (<0.06)
== END 2019-09-17 02:10 | disposition home or self-care (01) ==
PROVIDERS: Registered Nurse Emergency; Emergency Provider Emergency Medicine; PCP Physician Assistant Medical
DX: I10 Essential (primary) hypertension (principal); R07.89 Other chest pain; R11.0 Nausea; R51 Headache; F17.210 Nicotine dependence, cigarettes, uncomplicated
CPT/HCPCS: 36415; 80053; 93005; 96374; 99285; 71045; 83735; 84484; 85025; 93010; J2405

== ENCOUNTER 2019-09-19 02:38 | Emergency (ER) | payer MEDICAID, SELFPAY ==
[2019-09-19 02:43] VITALS: BP 173/118; PULSE 89; RESP 18; TEMP 36.7; O2SAT 97
--- NOTE | 2019-09-19 02:45 | RT.EKG_ITS ---
APPROVED REPORT Exam: Resting ECG Patient Location: E HR:87 bpm ECG Measurements Heart Rate 87 AXIS MD 182 P 22 QRSd 76 QRS 14 QT 370 T -21 QTc 445 <Conclusion> EKG 2: 54 Rate 87, sinus rhythm, intervals normal, no significant ST elevations or depressions. No evidence of STEMI. She does have a Q wave in lead III and inverted T wave in lead III, however these findings a re present from prior EKG on .
[2019-09-19 02:52] VITALS: PULSE 88; RESP 19; O2SAT 98
[2019-09-19 03:00] VITALS: PULSE 85; RESP 20; O2SAT 97
[2019-09-19] MEDS: Ketorolac 30 MG/ML VIAL IM (03:09)
[2019-09-19] MEDS: Lidocaine 5% Patch 1 PATCH TP (03:09)
[2019-09-19 03:10] VITALS: PULSE 82; RESP 23; O2SAT 97
--- NOTE | 2019-09-19 03:10 | ED.GENADUL_ITS ---
Discharge Plan Disposition Patient Disposition: HOME Condition: Good Discharge Details Chief Complaint: Chest Pain Clinical Impression: Pectoralis muscle strain Primary Care Provider: Elizabeth Benton ED Provider: Jose Welch Home Meds and New Rx's Prescriptions: New lidocaine [Lidoderm] 1 PATCH patch 1 patch Topical Q24H Qty: 4 RF: 0 Continued verapamil 120 mg tablet extended release 120 mg PO DAILY Qty: 30 RF: 5 potassium citrate [Urocit-K 15] 15 mEq tablet extended release 15 meq PO BID Qty: 60 RF: 6 Narcan 4 mg/actuation spray,non-aerosol 1 spray LOGAN ONCE PRNRF: 0 pantoprazole [Protonix] 20 MG tablet,delayed release (DR/EC) 40 mg PO DAILY RF: 0 alprazolam [Xanax] 1 mg Tablet 1 mg PO HS RF: 0 metoprolol succinate 100 mg Tablet Extended Release 24 Hr 100 mg PO DAILY RF: 0 zolpidem 10 MG tablet 10 mg PO HS PRN PRNRF: 0 oxycodone 10 mg Tablet 10 mg PO QID RF: 0 Discharge Instructions Instructions: Muscle Strain (ED) Additional Instructions: At this time your signs and symptoms are consistent with a muscle strain of your pectoralis muscle. Is important that you let it rest as much as possible to help heal. Please apply the Lidoderm patches as directed. You can take Tylenol and Motrin as needed for pain. Using ice for the area may also help. Avoid any significant strain or use of your left shoulder or your pectoralis muscles for the time being to allow them to heal. If you notice any worsening of your symptoms, or any new symptoms such as vomiting, diarrhea, fever, chills, shortness of breath, chest pain, numbness, weakness, or fainting , please return immediately to the emergency department for reevaluation. Please follow up with your primary care provider as soon as possible for reassessment and reevaluation. As always, it was a pleasure participating in your medical care today. Referrals: Elizabeth Benton [Primary Care Provider] - Medical Decision Making 39-year-old female with a past medical history of hypertension, ADD, depression, presents today for evaluation of left-sided chest pain. Patient was here 3 days ago, evaluated for a generalized chest pain at that time. Serial troponins and EKG and x-ray were all unremarkable. She does have home antihypertensive medications, but has not yet had the opportunity to follow-up with her PCP. Starting this afternoon she noticed pain in her left upper chest, it is just proximal to the left shoulder. It is worsened with movement of the left shoulder and palpation of the left anterior chest wall. She denies any exertional discomfort, pleuritic chest pain, hemoptysis. She denies any fever chills or cough. Symptoms are not changed by leaning forward or lying back. She states that this pain feels different than when she was here 3 days ago. She denies any trauma. She denies any previous cardiac disease. Denies PE risk factors such as recent long car rides, immobilization, recent surgery, prior history of DVT or PE, family history of PE or DVT, morbid obesity, exogenous estrogen and smoking, hemoptysis, history of cancer. the left shoulder demonstrates mild tenderness left anterior chest wall with movement. Notable reproducible tenderness over the left anterior chest wall just proximal to the left shoulder, primarily over the insertion sites of the pectoralis muscles. No deformity otherwise. Review of chest x-ray from previous visit was negative. The pain elicited with movement of the shoulder and palpation of the left anterior chest wall is pain that the patient is currently describing. Review of the patient's previous visit demonstrate negative troponins and EKGs, benign x- ray. Signs and symptoms clinically at this time are inconsistent with ACS. EKG shows no acute changes or evidence of STEMI. Patient is PERC negative. With the notable reproducibility specifically at the insertion sites of the pectoralis muscle signs and symptoms at this time appear clinically consistent with a musculoskeletal strain. I did discuss repeat labs and imaging and at this point the patient would like to hold off on these understanding the risks and benefits. They see no current clinical indication for other additional imaging or work-up at this time. We will give Toradol and Lidoderm patch for this musculoskeletal component. Of note I do feel that she still would benefit with close follow-up with her PCP for evaluation of her chronic blood pressure issues in relation to her last ED visit, however I feel that this current visit is otherwise unrelated to that. 3:30 AM On reassessment after treatment the patient has near complete resolution of her symptoms, symptoms at this time are clinically consistent with musculoskeletal strain of the pectoralis minor muscle. Clinically inconsistent with ACS or pneumothorax. Patient will be discharged home with Lidoderm patches and recommend stations for Tylenol Motrin. I have extensively reviewed the treatment plan and discharge instructions with the patient. I have addressed all patient concerns at this time. The patient was made aware of what symptoms to monitor for that would warrant a return to the emergency department. Discussed the plan with the patient, they demonstrate verbal understanding and agreement with our assessment and plan at this time. EKG 2: 54 Rate 87, sinus rhythm, intervals normal, no significant ST elevations or depressions. No evidence of STEMI. She does have a Q wave in lead III and inverted T wave in lead III, however these findings are present from prior EKG on . HPI General Date/Time Provider Initiated Documentation: 09/19/19 02:46 . HPI Narrative: 39-year-old female with a past medical history of hypertension, ADD, depression, presents today for evaluation of left-sided chest pain. Patient was here 3 days ago, evaluated for a generalized chest pain at that time. Serial troponins and EKG and x-ray were all unremarkable. She does have home antihypertensive medications, but has not yet had the opportunity to follow-up with her PCP. Starting this afternoon she noticed pain in her left upper chest, it is just proximal to the left shoulder. It is worsened with movement of the left shoulder and palpation of the left anterior chest wall. She denies any exertional discomfort, pleuritic chest pain, hemoptysis. She denies any fever chills or cough. Symptoms are not changed by leaning forward or lying back. She states that this pain feels different than when she was here 3 days ago. S he denies any trauma. She denies any previous cardiac disease. Denies PE risk factors such as recent long car rides, immobilization, recent surgery, prior history of DVT or PE, family history of PE or DVT, morbid obesity, exogenous estrogen and smoking, hemoptysis, history of cancer. She denies any numbness or tingling in her hands or arms. She denies any tearing or ripping sensation in her chest. Related Data Home Medications Medication Instructions Recorded Confirmed pantoprazole [Protonix] 40 mg PO DAILY 10/01/16 09/16/19 zolpidem 10 mg PO HS PRN PRN 05/26/17 09/16/19 naloxone 4 mg/actuation nasal spray 1 spray LOGAN ONCE PRN 04/19/18 09/16/19 verapamil 120 mg tablet,extended 120 mg PO DAILY #30 tab 04/22/18 09/16/19 release alprazolam [Xanax] 1 mg PO HS 07/17/18 09/16/19 metoprolol succinate 100 mg PO DAILY 08/23/18 09/16/19 potassium citrate 15 mEq (1,620 15 meq PO BID #60 tab 12/27/18 09/16/19 mg) tablet,extended release oxycodone 10 mg PO QID 01/14/19 09/16/19 lidocaine [Lidoderm] 1 patch TOPICAL Q24H #4 patch 09/19/19 Previous Rx's Medication Instructions Recorded verapamil 120 mg tablet,extended 120 mg PO DAILY #30 tab 04/22/18 release potassium citrate 15 mEq (1,620 15 meq PO BID #60 tab 12/27/18 mg) tablet,extended release lidocaine [Lidoderm] 1 patch TOPICAL Q24H #4 patch 09/19/19 Allergies Allergy/AdvReac Type Severity Reaction Status Date / Time prednisone Allergy Intermediate Verified 09/16/19 22:29 codeine AdvReac Mild Nausea Verified 09/16/19 22:29 morphine AdvReac Mild Nausea Verified 09/16/19 22:29 tramadol HCl [From Ultram] AdvReac Mild Nausea Verified 09/16/19 22:29 tegaderm tape AdvReac Intermediate ariza my Uncoded 09/16/19 22:29 skin General Stated Complaint: Chest Pain JOEL: 2 Review of Systems All systems reviewed & are unremarkable except as noted in HPI and below PFSH Medical History Abdominal pain (Resolved) Active asthma ADD (attention deficit disorder) Affective bipolar disorder Amenorrhea Bilateral kidney stones (Acute) Causalgia of left upper extremity (Resolved) Cervical disc disease Chest pain at rest (Resolved) Chronic headache (Chronic) Chronic insomnia Chronic pain (Chronic) Chronic wrist pain (Resolved) Cold sore (Resolved) Conversion disorder tremor, stutter, weakness CVA tenderness (Resolved) Depression with anxiety Dizziness (Resolved) Essential tremor (Resolved) Gastritis Headache, chronic migraine without aura (Chronic) Carcamo sign present (Resolved) Hydronephrosis (Resolved) Hyperreflexia (Resolved) Kidney stones (Resolved) Knee pain (Resolved) Left-sided thoracic back pain (Resolved) Medication overuse headache (Chronic) Memory loss (Resolved) Migraines (Resolved) Neuralgia (Resolved) Numbness and tingling (Resolved) Psychogenic tremor (Chronic) Rectal bleeding Right arm weakness (Resolved) Speech problem (Resolved) Upper respiratory infection (Resolved) Ureteral calculi (Resolved) Surgical History Repair of umbilical hernia S/P appendectomy (Acute) S/P cholecystectomy (Acute) S/P knee surgery (Acute) Family History Father Cerebral aneurysm Social History Smoking/Tobacco Use Status: Current every day Tobacco Type: cigarettes Smoking packs per day: 1 Smoking cigarettes per day: 20.0 Years smoked: 20 Smoking pack- years: 20.00 Alcohol Intake: never Drug use: Never Substance use type: does not use Household members: significant other and children Number of Children: 1 Current gender identity: female Do you feel safe at home: Yes Do you feel safe in your relationship?: Yes Exam Narrative Exam Narrative: 1.Const: Well-nourished, Well-developed, appearing stated age 2.Eyes: PERRL, no conjunctival injection, and symmetrical lids. 3.ENT: Atraumatic external nose and ears. Moist MM. Neck: Symmetric, trachea midline, No thyromegaly. 4.CVS: +S1/S2, No murmurs or gallops. Peripheral pulses 2+ and equal in all extremities. Brisk capillary refill in all extremities. 5.RESP: Unlabored respiratory effort. Clear to auscultation bilaterally. No wheezes rales or rhonchi 6.GI: Soft, Nontender/Nondistended, No hepatosplenomegaly. No guarding or rebound. 7.MSK: Normocephalic/Atraumatic, Extremities w/o deformity or ttp No cyanosis or clubbing, Normal movement of all extremities, the left shoulder which demonstrates mild tenderness left anterior chest wall with movement. Notable reproducible tenderness over the left anterior chest wall just proximal to the left shoulder, primarily over the insertion sites of the pectoralis minor muscles. No deformity otherwise. Review of chest x-ray from previous visit was negative. The pain elicited with movement of the shoulder and palpation of the left anterior chest wall is pain that the patient is currently describing. 8.Skin: Warm, Dry. No rashes or lesions. 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 Sensation grossly intact, no focal neurologic deficits. 10.Psych: (AAO) x3. Appropriate mood and affect Course Vital Signs Vital signs: Vital Signs Temperature 36.7 C 09/19/19 02:43 Pulse 89 09/19/19 02:43 Respiratory Rate 18 09/19/19 02:43 Blood Pressure 173/118 H 09/19/19 02:43 Pulse Oximetry 97 09/19/19 02:43 Temperature 36.7 C 09/19/19 02:43 Temperature Source Temporal Artery Scan 09/19/19 02:43 Pulse 89 09/19/19 02:43 Respiratory Rate 18 09/19/19 02:43 Respiratory Effort 09/19/19 02:56 Respiratory Pattern Normal 09/19/19 02:56 Blood Pressure 173/118 H 09/19/19 02:43 Blood Pressure Position Sitting 09/19/19 02:43 Pulse Oximetry 97 09/19/19 02:43
[2019-09-19 03:20] VITALS: PULSE 84; RESP 26; O2SAT 96
[2019-09-19 03:30] VITALS: BP 167/110; PULSE 84
== END 2019-09-19 03:37 | disposition home or self-care (01) ==
PROVIDERS: Emergency Provider Student in an Organized Health Care Education/Training Program; PCP Physician Assistant Medical
DX: S29.011A Strain of muscle and tendon of front wall of thorax, initial encounter (principal); X58.XXXA Exposure to other specified factors, initial encounter; I10 Essential (primary) hypertension
CPT/HCPCS: 93005; 96372; 99284; 93010; J1885

== ENCOUNTER 2019-10-04 16:43 | Outpatient (REF) | payer MEDICAID, SELFPAY ==
[2019-10-10 11:07] LABS: Urine Volume 2400 mL
[2019-10-19 00:21] LABS: Metanephrines, U 274 mcg/24 h; Normetanephrine, U 439 mcg/24 h; Total Metanephrines, U 713 mcg/24 h; Urine Volume 2400 mL
== END 2019-10-04 17:03 ==
LOC: LBN 16:43
PROVIDERS: PCP Physician Assistant Medical; Visit Provider Physician Assistant Medical
DX: I16.0 Hypertensive urgency (principal)
CPT/HCPCS: 81050; 82384; 83835

== ENCOUNTER 2019-10-19 01:44 | Emergency (ER) | payer MEDICAID, SELFPAY ==
--- NOTE | 2019-10-19 01:45 | DI.CT_ITS ---
EXAM: CT ABDOMEN PELVIS WO CLINICAL HISTORY: left flank pain, hx of stones, r/o stones vs diver. TECHNIQUE: Imaging Protocol: Axial computed tomography images with coronal and sagittal reformatted images were created and reviewed. COMPARISON: CT CT ABDOMEN PELVIS W from 10/01/2018 FINDINGS: ABDOMEN: Lung Bases: Normal where visualized. Liver: Fatty infiltration. No measurable mass. 22 cm in length. Gallbladder and biliary tract: Status post cholecystectomy. No biliary ductal dilatation. Pancreas: Normal density, no abnormal calcifications or inflammatory process. Spleen: Normal. Kidneys: Normal size, contour and axis.Bilateral nephrolithiasis. No hydronephrosis. No masses seen . Adrenal glands: No mass is seen. Lymph nodes: Within normal limits. Abdominal Aorta: Abdominal portion non-dilated. PELVIS: Bladder:Symmetric distention, no gross wall thickening. Bowel: No obstruction or bowel wall thickening. No evidence of appendicitis. Mild inflammatory stran ding around loops of proximal jejunum in the left upper quadrant may represent a mild infectious or i nflammatory enteritis. Peritoneal cavity: No ascites, collection or mesenteric inflammatory response Reproductive organs: Within normal limits. Bones: Degenerative changes. Soft Tissues: Within normal limits. IMPRESSION: 1. Bilateral nephrolithiasis. No evidence of hydronephrosis. 2. Hepatomegaly and hepatic steatosis. 3. Mild inflammatory stranding around proximal jejunal loops in the left upper quadrant suggesting a mild enteritis. RADIATION DOSE DELIVERED: 1,144.79mGy.cm Total DLP DATA REPOSITORY: All CT scans at this facility are submitted to the National Radiology Data Registry (NRDR) Dose Index Registry (DIR) with the [employer] ([employer]). RADIATION OPTIMIZATION: All CT scans at this facility use at least one of these dose optimization te chniques: automated exposure control; mA and/or kV adjustment per patient size (includes targeted exa ms where dose is matched to clinical indication); or iterative reconstruction.
[2019-10-19 01:47] VITALS: BP 142/96; PULSE 87; RESP 16; O2SAT 98
--- NOTE | 2019-10-19 01:54 | ED.GENADUL_ITS ---
Discharge Plan Disposition Patient Disposition: HOME Condition: Good Discharge Details Chief Complaint: Urinary Clinical Impression: Enteritis, Adrenal nodule Primary Care Provider: Elizabeth Benton ED Provider: Jose Welch Home Meds and New Rx's Prescriptions: New ondansetron HCl [Zofran] 4 mg tablet 4 mg PO Q8H Qty: 12 RF: 0 Continued labetalol 200 mg tablet 200 mg PO BID RF: 0 enalapril maleate 5 mg tablet 5 mg PO DAILY RF: 0 verapamil 120 mg tablet extended release 240 mg PO DAILY RF: 0 Narcan 4 mg/actuation spray,non-aerosol 1 spray LOGAN ONCE PRNRF: 0 pantoprazole [Protonix] 20 MG tablet,delayed release (DR/EC) 40 mg PO DAILY RF: 0 alprazolam [Xanax] 1 mg Tablet 1 mg PO HS RF: 0 zolpidem 10 MG tablet 10 mg PO HS PRN PRNRF: 0 oxycodone 10 mg Tablet 10 mg PO QID RF: 0 lidocaine [Lidoderm] 1 PATCH patch 1 patch Topical Q24H Qty: 4 RF: 0 Discharge Instructions Instructions: Enteritis (ED) Additional Instructions: At this time you have evidence of mild enteritis which is likely from a virus. It is important that you drink plenty of fluids, and avoid any spicy or greasy foods. Stick with a bland diet. Your CT scan at this time thankfully shows no other significant concerning abnormalities but does show evidence of a small adrenal nodule. This is likely benign but does need close follow-up with your primary care provider. If you notice any worsening of your symptoms, or any new symptoms such as vomiting, diarrhea, fever, chills, shortness of breath, chest pain, numbness, weakness, or fainting , please return immediately to the emergency department for reevaluation. Please follow up with your primary care provider as soon as possible for reassessment and reevaluation. As always, it was a pleasure participating in your medical care today. Referrals: Elizabeth Benton [Primary Care Provider] - Medical Decision Making 39-year-old female with a past medical history of ADD, chronic migrain es, and previous kidney stones as well as has surgical history of appendectomy, cholecystectomy, and periumbilical hernia repairs who presents today for evaluation of left flank pain. Patient states that the pain is been present for the last 3 to 4 days on and off, notably worse today, very sharp in nature. Radiates around the left flank to the groin. She has had some associated loose stool, as well as nausea and occasional intermittent vomiting. She denies any fever chills, hematuria, or hematemesis. She does note occasional intermittent blood in her stools in the past last time was over few days ago. No recent antibiotics, foreign travel, or other sick contacts. She denies any recent weight loss, or history of malignancy. No other complaints at this time. She does state that her symptoms feel similar to previous kidney stones that she has had. She denies any vaginal discharge. Physical exam demonstrates nonsurgical abdomen, mild pain in the left flank on palpation, patient states that it is not reproduced by palpation. Signs and symptoms are concerning for kidney stone but also mild diverticulitis. We will give pain medication, fluids, get a CAT scan to differentiate between stone versus diverticulitis, laboratory work-up monitor closely and reassess. 2:50 AM Patient's laboratory work-up is returned relatively benign, minimal white count at 12.6, no bandemia. Electrolytes normal, renal function stable, still pending urinalysis. Pending lipase. No transaminitis, bilirubin normal. Patient's pain and symptoms improved. CT scan results have returned, no evidence of obstructing kidney stone, she does have some renal calculi. There is evidence of mild enteritis, fatty liver, but no other acute process. No evidence of an acute surgical etiology. Suspect enteritis may be a component of the patient's symptoms albeit similar to her original kidney stones, or she may have recently just passed the stone. Still pending urinalysis at this time. 3:33 AM Patient has complete resolution of her symptoms after medications with Bentyl and Reglan and Zofran. She is feeling well and is asking to go home. Repeat exam shows no signs of an acute surgical abdomen. Urinalysis is negative for evidence of infection, with evidence of no signs of an acute surgical abnormality on CT scan or exam, with no evidence of significant infection I feel her signs and symptoms are clinically consistent with mild viral enteritis. Discussed red flags which to return. I have extensively reviewed the treatment plan and discharge instructions with the patient. I have addressed all patient concerns at this time. The patient was made aware of what symptoms to monitor for that would warrant a return to the emergency department. Discussed the plan with the patient, they demonstrate verbal understanding and agreement with our assessment and plan at this time. IMPRESSION: 1. Bilateral nonobstructive small renal calculi. No acute renal inflammatory changes. 2. Hepatic enlargement and diffuse fatty infiltration. 3. Previous cholecystectomy. 4. Mild edema of left abdominal jejunal bowel loops suggesting mild enteritis. 5. Previous appendectomy. 6. No free fluid in the abdomen or pelvis. Thank you for allowing us to participate in the care of your patient. Dictated and Authenticated by: Pan Cano MD 10/19/2019 2:47 AM Eastern Time ([place] & [place]) HPI General Date/Time Provider Initiated Documentation: 10/19/19 01:48 . HPI Narrative: 39- year-old female with a past medical history of ADD, chronic migraines, and previous kidney stones as well as has surgical history of appendectomy, cholecystectomy, and periumbilical hernia repairs who presents today for evaluation of left flank pain. Patient states that the pain is been present for the last 3 to 4 days on and off, notably worse today, very sharp in nature. Radiates around the left flank to the groin. She has had some associated loose stool, as well as nausea and occasional intermittent vomiting. She denies any fever chills, hematuria, or hematemesis. She does note occasional intermittent blood in her stools in the past last time was over few days ago. She denies any recent weight loss, or history of malignancy. No other complaints at this time. She does state that her symptoms feel similar to previous kidney stones that she has had. She denies any vaginal discharge. Related Data Home Medications Medication Instructions Recorded Confirmed pantoprazole [Protonix] 40 mg PO DAILY 10/01/16 10/19/19 zolpidem 10 mg PO HS PRN PRN 05/26/17 10/19/19 naloxone 4 mg/actuation nasal spray 1 spray LOGAN ONCE PRN 04/19/18 10/19/19 alprazolam [Xanax] 1 mg PO HS 07/17/18 10/19/19 oxycodone 10 mg PO QID 01/14/19 10/19/19 lidocaine [Lidoderm] 1 patch TOPICAL Q24H #4 patch 09/19/19 09/30/19 verapamil 120 mg tablet,extended 240 mg PO DAILY tab 09/21/19 10/19/19 release enalapril maleate 5 mg tablet 5 mg PO DAILY 10/03/19 10/19/19 labetalol 200 mg tablet 200 mg PO BID 10/03/19 10/19/19 ondansetron HCl [Zofran] 4 mg PO Q8H #12 tab 10/19/19 Previous Rx's Medication Instructions Recorded lidocaine [Lidoderm] 1 patch TOPICAL Q24H #4 patch 09/19/19 ondansetron HCl [Zofran] 4 mg PO Q8H #12 tab 10/19/19 Allergies Allergy/AdvReac Type Severity Reaction Status Date / Time prednisone Allergy Intermediate Verified 10/19/19 01:50 codeine AdvReac Mild Nausea Verified 10/19/19 01:50 morphine AdvReac Mild Nausea Verified 10/19/19 01:50 tramadol HCl [From Ultram] AdvReac Mild Nausea Verified 10/19/19 01:50 tegaderm tape AdvReac Intermediate ariza my Uncoded 10/19/19 01:50 skin General Stated Complaint: Urinary JOEL: 3 Review of Systems All systems reviewed & are unremarkable except as noted in HPI and below PFSH Medical History Abdominal pain (Resolved) Active asthma ADD (attention deficit disorder) Affective bipolar disorder Amenorrhea Bilateral kidney stones (Acute) Causalgia of left upper extremity (Resolved) Cervical disc disease Chest pain at rest (Resolved) Chronic headache (Chronic) Chronic insomnia Chronic pain (Chronic) Chronic wrist pain (Resolved) Cold sore (Resolved) Conversion disorder tremor, stutter, weakness CVA tenderness (Resolved) Depression with anxiety Dizziness (Resolved) Essential tremor (Resolved) Gastritis Headache, chronic migraine without aura (Chronic) Carcamo sign present (Resolved) Hydronephrosis (Resolved) Hyperreflexia (Resolved) Kidney stones (Resolved) Knee pain (Resolved) Left-sided thoracic back pain (Resolved) Medication overuse headache (Chronic) Memory loss (Resolved) Migraines (Resolved) Neuralgia (Resolved) Numbness and tingling (Resolved) Psychogenic tremor (Chronic) Rectal bleeding Right arm weakness (Resolved) Speech problem (Resolved) Upper respiratory infection (Resolved) Ureteral calculi (Resolved) Surgical History Repair of umbilical hernia S/P appendectomy (Acute) S/P cholecystectomy (Acute) S/P knee surgery (Acute) Family History Father Cerebral aneurysm Social History Smoking/Tobacco Use Status: Current every day Tobacco Type: cigarettes Smoking packs per day: 1 Smoking cigarettes per day: 20.0 Years smoked: 20 Smoking pack- years: 20.00 Alcohol Intake: never Drug use: Never Substance use type: does not use Household members: significant other and children Number of Children: 1 Current gender identity: female Do you feel safe at home: Yes Do you feel safe in your relationship?: Yes Exam Narrative Exam Narrative: 1.Const: Well-nourished, Well-developed, appearing stated age 2.Eyes: PERRL, no conjunctival injection, and symmetrical lids. 3.ENT: Atraumatic external nose and ears. Moist MM. Neck: Symmetric, trachea midline, No thyromegaly. 4.CVS: +S1/S2, No murmurs or gallops. Peripheral pulses 2+ and equal in all extremities. Brisk capillary refill in all extremities. 5.RESP: Unlabored respiratory effort. Clear to auscultation bilaterally. No wheezes rales or rhonchi 6.GI: Soft, Nontender/Nondistended, No hepatosplenomegaly. No guarding or rebound. Mild left-sided CVA tenderness, on palpation of the abdomen pain is not necessarily worsened, however in the left flank she states that that is where the pain is during palpation but not worsened by palpation. Negative obturator and psoas sign. 7.MSK: Normocephalic/Atraumatic, Extremities w/o deformity or ttp No cyanosis or clubbing, Normal movement of all extremities 8.Skin: Warm, Dry. No rashes or lesions. 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 Sensation grossly intact, no focal neurologic deficits. 10.Psych: (AAO) x3. Appropriate mood and affect Course Vital Signs Vital signs: Vital Signs Pulse 87 10/19/19 01:47 Respiratory Rate 16 10/19/19 01:47 Blood Pressure 142/96 H 08/12/20 01:47 Pulse Oximetry 98 10/19/19 01:47 Pulse 87 10/19/19 01:47 Respiratory Rate 16 10/19/19 01:47 Blood Pressure 142/96 H 10/19/19 01:47 Blood Pressure Position Sitting 10/19/19 01:47 Pulse Oximetry 98 10/19/19 01:47 Oxygen Delivery Method Room Air 10/19/19 01:47 Oxygen Flow Rate 0 10/19/19 01:47 Pain Level 7 10/19/19 01:47
[2019-10-19] MEDS: Normal Saline 1,000 ML 1000 ML IV (02:00)
[2019-10-19] MEDS: Ketorolac 15 MG/ML VIAL IVP (02:00)
[2019-10-19] MEDS: Ondansetron 4 MG/2 ML VIAL IVP (02:00)
[2019-10-19 02:03] LABS: Abs Immature Grans 0.04 10^3/uL (0.0-0.06); Absolute Basophil Count 0.05 10^3/uL (0.0-0.2); Absolute Monocyte Count 0.87 10^3/uL (0.1-0.8); Basophils % 0.4; Eosinophils % 2.8; HCT 41.1 % (36.0-46.0); HGB 13.5 g/dL (11.2-15.7); Immature Grans % 0.3; Lymphocytes % 24.5; MCHC 32.8 % (32.0-36.0); MCV 94.3 fL (80-95); MPV 9.5 fL (8.0-11.0); Monocytes % 6.9; Neutrophils % 65.1; Nucleated RBC 0 %; Platelet Count 277 10^3/uL (130-400); RBC 4.36 10^6/uL (3.93-5.22); RDW 12.8 % (11.7-14.6); RDW-SD 44.3 fL; WBC 12.65 10^3/uL (4.4-10.8)
[2019-10-19 02:06] LABS: Absolute Eosinophil Count 0.35 10^3/uL (0.0-0.7); Absolute Neutrophil Count 8.24 10^3/uL (1.2-6.7)
[2019-10-19 02:20] LABS: ALT 30 U/L (14-59); AST 17 U/L (15-37); Albumin 3.3 g/dL (3.4-5.0); Alkaline Phosphatase 86 U/L (46-116); Anion Gap 10.9 mmol/L (3-11); BUN 13 mg/dL (7-18); Bilirubin, Total 0.2 mg/dL (0.2-1.0); CO2 24.1 mmol/L (21.0-32.0); CREATININE 1.05 mg/dL (0.55-1.02); Calcium 8.9 mg/dL (8.5-10.1); Chloride 103 mmol/L (98-107); Estimated GFR 57.76 (mL/min/1.73m2); Glucose 143 mg/dL (74-106); Potassium 3.5 mmol/L (3.5-5.1); Sodium 138 mmol/L (136-145); Total Protein 7.2 g/dL (6.4-8.2)
[2019-10-19 02:46] LABS: Lipase 120 U/L (73-393)
--- NOTE | 2019-10-19 02:47 | DI.VRAD_ITS ---
PROCEDURE INFORMATION: Exam: CT Abdomen And Pelvis Without Contrast Exam date and time: 10/19/2019 1:54 AM Age: 39 years old Clinical indication: Other: Left flank pain; Prior surgery; Surgery date: 6+ months; Surgery type: Appendectomy and cholecystectomy, kidney stone removal; Patient HX: Left flank pain increasing over a couple days TECHNIQUE: Imaging protocol: Computed tomography of the abdomen and pelvis without contrast. Radiation optimization: All CT scans at this facility use at least one of these dose optimization techniques: automated exposure control; mA and/or kV adjustment per patient size (includes targeted exams where dose is matched to clinical indication); or iterative reconstruction. COMPARISON: CT ABDOMEN PELVIS W 10/01/2018 7:49 PM FINDINGS: Liver: Hepatic enlargement and diffuse fatty infiltration. Gallbladder and bile ducts: Previous cholecystectomy. Pancreas: Normal. No ductal dilation. Spleen: Normal. No splenomegaly. Adrenals: Left adrenal gland with mild nodular fullness of the lateral limb. Nodule measuring approximately 14 x 8 mm. This is likely a small benign adenoma. Kidneys and ureters: 2 mm right midpole posterior calyx calculus. There is an additional lower pole anterior calyx 2 mm calculus. No acute hydronephrosis. 1 mm lower pole left renal calculus. No acute hydronephrosis or renal inflammatory changes. Stomach and bowel: Left abdominal jejunal small bowel loops with mild edema suggesting enteritis. See axial images 38 through 52. No mechanical obstruction evident. Large bowel with a few scattered diverticulum. No acute diverticulitis. Appendix: Surgical clips at the cecum suggesting a previous appendectomy. Intraperitoneal space: No free fluid in the abdomen or pelvis. Vasculature: Unremarkable. No abdominal aortic aneurysm. Lymph nodes: Unremarkable. No enlarged lymph nodes. Bladder: Unremarkable as visualized. Reproductive: Unremarkable as visualized. Bones/joints: Mild degenerative lumbar spine changes. Soft tissues: Unremarkable. IMPRESSION: 1. Bilateral nonobstructive small renal calculi. No acute renal inflammatory changes. 2. Hepatic enlargement and diffuse fatty infiltration. 3. Previous cholecystectomy. 4. Mild edema of left abdominal jejunal bowel loops suggesting mild enteritis. 5. Previous appendectomy. 6. No free fluid in the abdomen or pelvis. Dictated and Authenticated by: Pan Cano MD. Ordering:FRANCA Garcia MD
[2019-10-19] MEDS: Metoclopramide 10 MG/2 ML VIAL IVP (03:02)
[2019-10-19 03:08] VITALS: BP 128/88; PULSE 80; RESP 16; O2SAT 97
[2019-10-19] MEDS: Dicyclomine 10 MG CAP PO (03:17)
[2019-10-19 03:22] LABS: Bilirubin Negative (Negative); Blood Negative (Negative); Clarity Sl Cloudy (Clear); Glucose Negative (Negative); Ketones Negative (Negative); Leukocyte Esterase Negative (Negative); Nitrite Negative (Negative); Specific Gravity >= 1.030 (1.005-1.025); Urobilinogen 0.2 EU/dL (Up TO 0.2)
[2019-10-19 03:26] LABS: Bacteria Rare HPF (Negative); C & S Indicated? No; Casts Negative LPF (Negative); Crystals Mod Calcium Oxalate HPF (Negative); Epithelial Cells Few HPF (Negative); Mucus Negative (Negative); RBC Negative HPF (0-2); WBC Negative HPF (0-5)
== END 2019-10-19 03:40 | disposition home or self-care (01) ==
PROVIDERS: Emergency Provider Student in an Organized Health Care Education/Training Program; PCP Physician Assistant Medical
DX: K52.89 Other specified noninfective gastroenteritis and colitis (principal); R93.422 Abnormal radiologic findings on diagnostic imaging of left kidney; R11.0 Nausea; Z87.442 Personal history of urinary calculi
CPT/HCPCS: 36415; 80053; 81025; 83690; 96361; 96374; 96375; 99284; 74176; 81003; 81015; 85025; 99285; J1885; J2405; J2765

== ENCOUNTER 2019-10-27 16:43 | Outpatient (REF) | payer MEDICAID, SELFPAY ==
[2019-10-28 23:01] LABS: C Difficile PCR Negative (Negative)
== END 2019-10-27 17:03 ==
LOC: LBN 16:43
PROVIDERS: PCP Physician Assistant Medical; Visit Provider Physician Assistant Medical
DX: R19.7 Diarrhea, unspecified (principal); R10.9 Unspecified abdominal pain; R11.2 Nausea with vomiting, unspecified
CPT/HCPCS: 87798

== ENCOUNTER 2019-11-01 16:14 | Emergency (ER) | payer MEDICAID, SELFPAY ==
--- NOTE | 2019-11-01 16:19 | ED.GENADUL_ITS ---
Discharge Plan Disposition Patient Disposition: HOME Condition: Good Discharge Details Chief Complaint: Abd Prob Clinical Impression: Enterocolitis, Abdominal pain, Dehydration, Hypokalemia Primary Care Provider: Elizabeth Benton ED Provider: Mili Arnold Home Meds and New Rx's Prescriptions: New ondansetron 4 mg tablet,disintegrating 4 mg PO Q6H PRN (Reason: nausea and vomiting) Qty: 10 RF: 0 Continued labetalol 200 mg tablet 200 mg PO BID RF: 0 enalapril maleate 5 mg tablet 5 mg PO DAILY RF: 0 verapamil 120 mg tablet extended release 240 mg PO DAILY RF: 0 Narcan 4 mg/actuation spray,non-aerosol 1 spray LOGAN ONCE PRNRF: 0 pantoprazole [Protonix] 20 MG tablet,delayed release (DR/EC) 40 mg PO DAILY RF: 0 alprazolam [Xanax] 1 mg Tablet 1 mg PO BID RF: 0 zolpidem 10 MG tablet 10 mg PO HS PRN PRNRF: 0 oxycodone 10 mg Tablet 10 mg PO QID RF: 0 Discharge Instructions Instructions: Hypokalemia (ED), Abdominal Pain (ED) Additional Instructions: Please encourage water intake. Please increase potassium in your diet, attached is information on low potassium. Your CT scan does show small, nonobstructing kidney stones on the right side these do not seem to be causing issues today. No evidence of these are infected. CT scan also shows fatty liver. There is thickening of your small bowel but this is unchanged from previous. I like you to follow-up with your primary care closely discussed your persistent abdominal pain. If you develop fever/chills, inability stay hydrated, increased pain or other new/worsening symptoms please seek care urgently once again. Referrals: Elizabeth Benton [Primary Care Provider] - Medical Decision Making Patient is a 39-year-old female presenting today with chief complaint of abdominal pain. She reports that she been having chronic abdominal pain and chronic left-sided flank pain. Was seen here on the at which time she was diagnosed with small nonobstructing kidney stones. She does not believe that these have passed. She believes that she has both a kidney stone as well as recurrent hernia. Is indicating the epigastric area as area of maximal discomfort. She reports that she has had diminished appetite over the past 2 weeks. States that she is able to hydrate and not have any issues with this but that she can vomit after food intake. She was evaluated by her primary care today. She reports the pain increased after palpation today. She reports that her primary care was concerned that she may have recurrent hernia advise she be seen in the emergency department. She denies any fevers or chills. Did have recent imaging and labs which were reviewed. On exam, patient appears to be resting comfortably. HME go to the room, she is on her cell phone and seems very comfortable. However, when I begin talking with the patient she begins groaning in pain. She is holding her abdomen during this time. She is endorsing left-sided CVA tenderness on exam. She has fairly diffuse abdominal discomfort but no peritoneal findings. Patient is on 10 mg oxycodone 4 times daily. She reports that she has been using this and has not been successful at alleviating her discomfort. States that her primary care has tried her on ondansetron without relief of her nausea. Spoke with physician in the PCP office who reviewed note from today. Patient has been on antibiotics for diverticulitis. the exam today was reassuring. She was unable to find an area in the note where the provider recommended her coming into the ED. patient also reported that she has not been eating food but I did trend her weight and do find stability if not increasing weight in her previous visits. Labs reviewed. No leukocytosis, stable H&H. Urine shows dehydration with elevated specific gravity. Trace amount of blood. Trace leukocyte esterase. Many epithelial cells, negative bacteria. Seems to be primarily contamination. She is not endorsing any urinary symptoms such as dysuria, frequency urgency. Patient has mildly low potassium at 3.3. She is been having some GI upset, I do not feel a p.o. replenishment would be appropriate and will encourage dietary addition. Her creatinine is slightly elevated at 1.03, this is down from her recent visit. Patient is receiving hydration while here. Labs are otherwise without significant abnormality, normal lipase. FINDINGS: Lungs: Minimal dependent atelectasis within the right lower lobe. The lung bases are otherwise clear. Heart: The heart is normal in size. No pericardial effusion. Liver: The liver is moderately enlarged and significantly fatty infiltrated with areas of focal fatty sparing seen along the bladder dome. Gallbladder and bile ducts: The gallbladder is surgically absent. No bile duct dilatation. Pancreas: Normal. No ductal dilation. Spleen: The spleen is normal in size and appearance. Adrenals: The bilateral adrenal glands are normal appearance. Kidneys and ureters: Several nonobstructing right-sided renal calculi are seen measuring between 2 and 5 mm each. No left-sided renal calculi. Minimal fullness within the bilateral renal pelves and ureters to the level of the urinary bladder. Minimal wall thickening surrounds the bilateral renal pelves and ureters, which may represent pyelitis. Stomach and bowel: Mild wall thickening within the gastric folds. A few areas of minimal wall thickening are seen within the proximal small bowel, unchanged from the prior study. No bowel obstruction. Mild circumferential wall thickening is seen diffusely throughout the colon. Appendix: The appendix is surgically absent. Intraperitoneal space: Unremarkable. No free air. No significant fluid collection. Vasculature: Unremarkable. No abdominal aortic aneurysm. Lymph nodes: Unremarkable. No enlarged lymph nodes. Bladder: Minimal wall thickening within the urinary bladder which may represent cystitis. Reproductive: Unremarkable as visualized. Bones/joints: Unremarkable. No acute fracture. Soft tissues: A ventral abdominal hernia repair is seen. This is unchanged from the prior study. IMPRESSION: 1. No significant change from the prior study. 2. Mild wall thickening within the gastric folds. Mild wall thickening is also seen within several loops of proximal small bowel diffusely throughout the colon. This suggest gastritis with enterocolitis. No bowel obstruction. 3. Nonobstructing right-sided renal calculi. Mild fullness and mild wall thickening within the bilateral renal pelves and ureters, with minimal wall thickening within the urinary bladder. This may represent cystitis with pyelitis. No evidence for pyelonephritis. No obstructing calculus. 4. Enlarged fatty infiltrated liver. Cholecystectomy. Discussed this findings with the patient. She reports that she has been referred to gastroenterology historically. She reports that she has had endoscopy and colonoscopy both of which were reported to be normal. I did advise that she should follow-up closely with her primary care. We did discuss the concerns regarding repetitive imaging and concerns for radiation. I did advise that she discuss this further with her primary care. I encouraged hydration. We did discuss continued antiemetics. She is now reporting that she does use her Zofran and is almost out of this, I will refill this. I did offer rectal Phenergan as an alternative which she has declined. Patient I did discuss that she also has right-sided renal calculi but these seem to be non- symptomatic at this point. We did discuss signs of infection and when to seek care for this. I did encourage water as well as potassium intake. I did advised that some of her increased abdominal pain may be associated with her opiate usage, advised she discuss this further with PCP. She was given return precautions. All her questions concerns were addressed and she is agreement this plan. HPI General Mode of arrival: ambulatory . Date/Time Provider Initiated Documentation: 11/01/19 16:19 . Limitations to Documentation: no limitations . Information obtained by: patient, RN notes reviewed and old records reviewed . History of Present Illness 39 year old F presents to the emergency department with the chief complaint of epigastric and left sided flank pain, described as severe and similar to prior episodes (feels like when she has had hjernia and kidney stones historically), with intensity rated at 8. Quality is described as sharp, and is localized to the abdomen. Patient reports no radiation. Patient started experiencing this hour(s) (increased after being evaluated by PCP today ) and it has been constant. No relieving factors improve symptom(s), No exacerbating factors reported . Patient notes loss of appetite (reports chronic loss of appetite) and nausea/vomiting (nausea, no vomiting); denies chest pain, cough, fever/chills, malaise, rash, shortness of breath and weakness. Patient did receive the following treatments prior to arrival, other (oxycodone as prescribed by PCP) Related Data Home Medications Medication Instructions Recorded Confirmed pantoprazole [Protonix] 40 mg PO DAILY 10/01/16 11/01/19 zolpidem 10 mg PO HS PRN PRN 05/26/17 11/01/19 naloxone 4 mg/actuation nasal spray 1 spray LOGAN ONCE PRN 04/19/18 11/01/19 alprazolam [Xanax] 1 mg PO BID 07/17/18 11/01/19 oxycodone 10 mg PO QID 01/14/19 11/01/19 verapamil 120 mg tablet,extended 240 mg PO DAILY tab 09/21/19 11/01/19 release enalapril maleate 5 mg tablet 5 mg PO DAILY 10/03/19 11/01/19 labetalol 200 mg tablet 200 mg PO BID 10/03/19 11/01/19 ondansetron 4 mg PO Q6H PRN #10 tab 11/01/19 Previous Rx's Medication Instructions Recorded ondansetron 4 mg PO Q6H PRN #10 tab 11/01/19 Allergies Allergy/AdvReac Type Severity Reaction Status Date / Time prednisone Allergy Intermediate Verified 11/01/19 16:26 codeine AdvReac Mild Nausea Verified 11/01/19 16:26 morphine AdvReac Mild Nausea Verified 11/01/19 16:26 tramadol HCl [From Ultram] AdvReac Mild Nausea Verified 11/01/19 16:26 tegaderm tape AdvReac Intermediate ariza my Uncoded 11/01/19 16:26 skin General JOEL: 3 Review of Systems Constitutional Constitutional: Reports as per HPI, Denies chills, Denies fatigue, Denies fever(s) and Denies headache(s) ENT Ears, Nose, Mouth, and Throat: Denies headache(s) Cardiovascular Cardiovascular: Reports as per HPI, Denies chest pain and Denies dyspnea Respiratory Respiratory: Reports as per HPI, Denies cough and Denies dyspnea Gastrointestinal Gastrointestinal: Reports as per HPI Genitourinary Genitourinary: Reports as per HPI, Denies hematuria, Denies difficulty voiding, Denies dysuria, Denies pelvic pain, Reports flank pain and Denies urinary urgency Musculoskeletal Musculoskeletal: Reports as per HPI and Denies back pain Integumentary/Breasts Skin/Breast: Reports as per HPI and Denies rash Neurologic Neurologic: Reports as per HPI and Denies headache(s) Endocrine Endocrine: Denies fatigue PFSH Medical History Abdominal pain (Resolved) Active asthma ADD (attention deficit disorder) Affective bipolar disorder Amenorrhea Bilateral kidney stones (Acute) Causalgia of left upper extremity (Resolved) Cervical disc disease Chest pain at rest (Resolved) Chronic headache (Chronic) Chronic insomnia Chronic pain (Chronic) Chronic wrist pain (Resolved) Cold sore (Resolved) Conversion disorder tremor, stutter, weakness CVA tenderness (Resolved) Depression with anxiety Dizziness (Resolved) Essential tremor (Resolved) Gastritis Headache, chronic migraine without aura (Chronic) Carcamo sign present (Resolved) Hydronephrosis (Resolved) Hyperreflexia (Resolved) Kidney stones (Resolved) Knee pain (Resolved) Left-sided thoracic back pain (Resolved) Medication overuse headache (Chronic) Memory loss (Resolved) Migraines (Resolved) Neuralgia (Resolved) Numbness and tingling (Resolved) Psychogenic tremor (Chronic) Rectal bleeding Right arm weakness (Resolved) Speech problem (Resolved) Upper respiratory infection (Resolved) Ureteral calculi (Resolved) Surgical History Repair of umbilical hernia S/P appendectomy (Acute) S/P cholecystectomy (Acute) S/P knee surgery (Acute) Family History Father Cerebral aneurysm Social History Smoking/Tobacco Use Status: Current every day Tobacco Type: cigarettes Smoking packs per day: 1 Smoking cigarettes per day: 20.0 Years smoked: 20 Smoking pack- years: 20.00 Alcohol Intake: never Drug use: Never Substance use type: does not use Household members: significant other and children Number of Children: 1 Current gender identity: female Do you feel safe at home: Yes Do you feel safe in your relationship?: Yes Exam Const General: cooperative, healthy appearing, comfortable, no acute distress and well developed Nutritional Appearance: well nourished and obese Orientation: alert and awake HENAL Head: normal to inspection Mouth: moist mucous membranes Resp Effort & Inspection: normal respiratory effort, able to speak in complete sentences and no respiratory distress Auscultation: clear to auscultation bilaterally, no rales, no rhonchi and no wheezes Cardio Rate: regular rate Rhythm: regular rhythm Heart Sounds: S1 normal and S2 normal GI Inspection: normal to inspection, distended, no visible herniation, no visible pulsation and No visible peristalsis Palpation: soft, no hepatosplenomegaly, not firm, no guarding, no hernias, not rigid and tender (diffuse, no peritoneal findings) Percussion: normal to percussion and no fluid wave Auscultation: normal bowel sounds Back/Spine/Pelvis Back: CVA tenderness (mild left CVA tenderness), No erythema, No ecchymosis and No Williamson-Munoz sign present Skin General skin exam: no rashes or lesions noted Trauma: no lacerations or abrasions Neuro General: patient alert and patient awake Cognition: normal cognition Speech: speech normal Gait: normal gait Psych Appearance: grossly normal and well kempt Mental Status: mental status grossly normal Speech and Movement: speech and movement normal
[2019-11-01 16:21] VITALS: BP 191/129; PULSE 97; RESP 20; TEMP 37; O2SAT 96
[2019-11-01] MEDS: Lactated Ringers 1,000 ML 1000 ML IV (16:30)
--- NOTE | 2019-11-01 16:30 | DI.CT_ITS ---
EXAM: CT ABDOMEN PELVIS W CLINICAL HISTORY: diffuse pain, max epigastric and left side TECHNIQUE: COMPARISON: CT CT ABDOMEN PELVIS WO from 10/19/2019 FINDINGS: CT examination of the abdomen and pelvis was performed with bolus infusion of 100 cc of Omnipaque 350 . Images obtained through the lung bases are unremarkable. Note is made of hepatic steatosis and he patomegaly. Spleen is unremarkable. Pancreas appears normal. No biliary dilatation. Gallbladder h as been surgically removed. Probable prior appendectomy with sutures noted at the base of the cecum. Stomach and bowel are nearly empty of contents. Question gastric wall thickening. Question mild wal l thickening of a few jejunal loops. Question mild wall thickening of the colon. No perienteric fat edema seen. Findings may represent enteritis. No gross interval change from prior study of October 18. Adrenals appear normal bilaterally. Multiple tiny nonobstructing right renal calculi noted. Tiny no nobstructing left renal calculus also seen. No ureteral calcification. Urinary bladder unremarkable . Fat containing ventral hernia noted. No abdominal or pelvic adenopathy. Abdominal aorta is of normal diameter and major visceral branches appear intact. IMPRESSION: Question mild diffuse wall thickening, stomach, colon and portions of small bowel, question enteritis , please correlate clinically. Additional evaluation with endoscopy or oral contrast enhanced CT may be considered. Hepatic steatosis and hepatomegaly. Bilateral nonobstructing renal calculi. RADIATION DOSE DELIVERED: 1,324.62mGy.cm Total DLP
[2019-11-01 16:47] LABS: Bilirubin Negative (Negative); Blood Trace-intact (Negative); Clarity Clear (Clear); Glucose Negative (Negative); Ketones Negative (Negative); Leukocyte Esterase Trace (Negative); Nitrite Negative (Negative); Specific Gravity >= 1.030 (1.005-1.025); Urobilinogen 0.2 EU/dL (Up TO 0.2)
[2019-11-01 16:58] LABS: Bacteria Negative HPF (Negative); C & S Indicated? No/Sq. Contamination; Casts Negative LPF (Negative); Crystals Negative HPF (Negative); Epithelial Cells Many HPF (Negative); Mucus Trace (Negative)
[2019-11-01 17:09] LABS: Abs Immature Grans 0.03 10^3/uL (0.0-0.06); Absolute Basophil Count 0.09 10^3/uL (0.0-0.2); Absolute Eosinophil Count 0.33 10^3/uL (0.0-0.7); Absolute Monocyte Count 0.61 10^3/uL (0.1-0.8); Absolute Neutrophil Count 7.53 10^3/uL (1.2-6.7); Basophils % 0.8; Eosinophils % 3.1; HCT 42.5 % (36.0-46.0); HGB 14.2 g/dL (11.2-15.7); Immature Grans % 0.3; Lymphocytes % 20.4; MCH 30.5 pg (27.0-33.0); MCHC 33.4 % (32.0-36.0); MCV 91.4 fL (80-95); Monocytes % 5.7; Neutrophils % 69.7; Nucleated RBC 0 %; Platelet Count 392 10^3/uL (130-400); RBC 4.65 10^6/uL (3.93-5.22); RDW 12.7 % (11.7-14.6); RDW-SD 42.4 fL; WBC 10.79 10^3/uL (4.4-10.8)
[2019-11-01] MEDS: diphenhydrAMINE 50 MG/ML VIAL 25 MG IVP (17:14)
[2019-11-01] MEDS: Metoclopramide 10 MG/2 ML VIAL IVP (17:15)
[2019-11-01] MEDS: Normal Saline 50 ML 200 ML (17:15)
[2019-11-01] MEDS: Normal Saline Flush 10 ML SYR IVP ×2 (17:15→17:52)
[2019-11-01 17:33] LABS: ALT 35 U/L (14-59); AST 36 U/L (15-37); Albumin 3.8 g/dL (3.4-5.0); Alkaline Phosphatase 94 U/L (46-116); Anion Gap 6.1 mmol/L (3-11); BUN 9 mg/dL (7-18); Bilirubin, Total 0.3 mg/dL (0.2-1.0); CO2 25.9 mmol/L (21.0-32.0); CREATININE 1.03 mg/dL (0.55-1.02); Chloride 104 mmol/L (98-107); Estimated GFR 59.05 (mL/min/1.73m2); Glucose 121 mg/dL (74-106); Lipase 101 U/L (73-393); Potassium 3.3 mmol/L (3.5-5.1); Sodium 136 mmol/L (136-145); Total Protein 7.9 g/dL (6.4-8.2)
[2019-11-01] MEDS: Omnipaque 350 MG/ML 100 ML BTL IV (17:50)
[2019-11-01] MEDS: Normal Saline - Diluent 50 ML VIAL IV (17:51)
--- NOTE | 2019-11-01 18:13 | DI.VRAD_ITS ---
PROCEDURE INFORMATION: Exam: CT Abdomen And Pelvis With Contrast Exam date and time: 11/01/2019 4:48 PM Age: 39 years old Clinical indication: Abdominal tenderness and other: Diffuse pain, max epigastric and left side; Prior surgery; Surgery date: 6+ months; Surgery type: Hernia repair TECHNIQUE: Imaging protocol: Computed tomography of the abdomen and pelvis with intravenous contrast. Radiation optimization: All CT scans at this facility use at least one of these dose optimization techniques: automated exposure control; mA and/or kV adjustment per patient size (includes targeted exams where dose is matched to clinical indication); or iterative reconstruction. Contrast material: OMNIPAQUE 350; Contrast volume: 100 ml; Contrast route: INTRAVENOUS (IV); COMPARISON: CT ABDOMEN PELVIS WO 10/19/2019 2:17 AM FINDINGS: Lungs: Minimal dependent atelectasis within the right lower lobe. The lung bases are otherwise clear. Heart: The heart is normal in size. No pericardial effusion. Liver: The liver is moderately enlarged and significantly fatty infiltrated with areas of focal fatty sparing seen along the bladder dome. Gallbladder and bile ducts: The gallbladder is surgically absent. No bile duct dilatation. Pancreas: Normal. No ductal dilation. Spleen: The spleen is normal in size and appearance. Adrenals: The bilateral adrenal glands are normal appearance. Kidneys and ureters: Several nonobstructing right-sided renal calculi are seen measuring between 2 and 5 mm each. No left-sided renal calculi. Minimal fullness within the bilateral renal pelves and ureters to the level of the urinary bladder. Minimal wall thickening surrounds the bilateral renal pelves and ureters, which may represent pyelitis. Stomach and bowel: Mild wall thickening within the gastric folds. A few areas of minimal wall thickening are seen within the proximal small bowel, unchanged from the prior study. No bowel obstruction. Mild circumferential wall thickening is seen diffusely throughout the colon. Appendix: The appendix is surgically absent. Intraperitoneal space: Unremarkable. No free air. No significant fluid collection. Vasculature: Unremarkable. No abdominal aortic aneurysm. Lymph nodes: Unremarkable. No enlarged lymph nodes. Bladder: Minimal wall thickening within the urinary bladder which may represent cystitis. Reproductive: Unremarkable as visualized. Bones/joints: Unremarkable. No acute fracture. Soft tissues: A ventral abdominal hernia repair is seen. This is unchanged from the prior study. IMPRESSION: 1. No significant change from the prior study. 2. Mild wall thickening within the gastric folds. Mild wall thickening is also seen within several loops of proximal small bowel diffusely throughout the colon. This suggest gastritis with enterocolitis. No bowel obstruction. 3. Nonobstructing right-sided renal calculi. Mild fullness and mild wall thickening within the bilateral renal pelves and ureters, with minimal wall thickening within the urinary bladder. This may represent cystitis with pyelitis. No evidence for pyelonephritis. No obstructing calculus. 4. Enlarged fatty infiltrated liver. Cholecystectomy. Dictated and Authenticated by: Radha Summers MD. Ordering:CARMEN Garces MD
[2019-11-01 18:25] LABS: Calcium 9.2 mg/dL (8.5-10.1)
[2019-11-01 18:42] VITALS: BP 158/108; PULSE 86; RESP 20; TEMP 37; O2SAT 95
== END 2019-11-01 18:45 | disposition home or self-care (01) ==
PROVIDERS: Emergency Provider Physician Assistant; PCP Physician Assistant Medical
DX: R10.13 Epigastric pain (principal); K52.9 Noninfective gastroenteritis and colitis, unspecified; E86.0 Dehydration; E87.6 Hypokalemia
CPT/HCPCS: 80053; 81025; 83690; 96361; 96374; 96375; 99285; 74177; 81003; 81015; 85025; 99284; J1200; J2765; J3490

== ENCOUNTER 2019-11-16 02:34 | Outpatient (CLI) | payer MEDICAID, SELFPAY ==
[2019-11-16 11:05] LABS: Anion Gap 7.9 mmol/L (3-11); BUN 16 mg/dL (7-18); CO2 28.1 mmol/L (21.0-32.0); CREATININE 1.32 mg/dL (0.55-1.02); Calcium 8.9 mg/dL (8.5-10.1); Chloride 101 mmol/L (98-107); Estimated GFR 44.35 (mL/min/1.73m2); Glucose 194 mg/dL (74-106); Potassium 3.4 mmol/L (3.5-5.1); Sodium 137 mmol/L (136-145)
== END 2019-11-16 02:54 ==
PROVIDERS: PCP Physician Assistant Medical; Visit Provider Internal Medicine Cardiovascular Disease
DX: Z79.899 Other long term (current) drug therapy (principal)
CPT/HCPCS: 36415; 80048

== ENCOUNTER 2020-01-19 08:28 | Outpatient (CLI) | payer MEDICAID, SELFPAY ==
[2020-01-20 15:14] LABS: SARS-CoV-2 RNA Not Detected (NotDetected); SARS-CoV-2 RNA Source Nasal/Nares
== END 2020-01-19 08:48 ==
PROVIDERS: PCP Physician Assistant Medical; Visit Provider Orthopaedic Surgery
DX: Z11.59 Encounter for screening for other viral diseases (principal); Z01.818 Encounter for other preprocedural examination
CPT/HCPCS: U0003

== ENCOUNTER 2020-01-23 08:03 | Day surgery (SDC) | payer MEDICAID, SELFPAY ==
[2020-01-23 08:26] VITALS: BP 120/81; PULSE 77; RESP 16; TEMP 36.5; O2SAT 100
[2020-01-23] MEDS: Lactated Ringers 1,000 ML 80 ML IV (09:30)
[2020-01-23] MEDS: ceFAZolin 1 GM/50 ML BAG IVPB (09:48)
[2020-01-23] MEDS: Bupivacaine 0.5% Pres-Free 30 ML VIAL (10:07)
--- NOTE | 2020-01-23 10:21 | PDOC.DSDIS_ITS ---
Discharge Plan Disposition Patient Disposition: HOME Condition: Good Discharge Details Reason For Visit: L ECTR Attending Provider: Dale Duran Primary Care Provider: Elizabeth Benton Home Meds and New Rx's Prescriptions: New ibuprofen 600 mg tablet 600 mg PO Q6H PRN (Reason: pain) Qty: 20 RF: 0 Continued Flovent HFA 110 mcg/actuation HFA aerosol inhaler 1 puff IH BID RF: 0 metoprolol succinate 100 mg tablet extended release 24 hr 100 mg PO DAILY Qty: 30 RF: 12 spironolactone 25 mg tablet 25 mg PO BID Qty: 60 RF: 12 verapamil 120 mg tablet extended release 240 mg PO DAILY RF: 0 enalapril maleate 10 mg tablet 10 mg PO DAILY Qty: 60 RF: 8 chlorthalidone 25 mg tablet 25 mg PO DAILY Qty: 30 RF: 6 Narcan 4 mg/actuation spray,non-aerosol 1 spray LOGAN ONCE PRNRF: 0 pantoprazole [Protonix] 20 MG tablet,delayed release (DR/EC) 40 mg PO DAILY RF: 0 alprazolam [Xanax] 1 mg Tablet 1 mg PO BID RF: 0 hydrocodone-acetaminophen 10-325 mg Tablet 1 tab PO Q6H PRNRF: 0 zolpidem 10 MG tablet 10 mg PO HS PRN PRNRF: 0 Discharge Instructions Additional Instructions: Elevate L hand above heart level as much as possible overnite tonite. Wiggle fingers L hand 10 times/hour when awake to prevent swelling. Keep splint and dressings dry and in place for 48 hours. After 48 hours, remove splint AND dressings and begin to move L wrist. May then shower or bathe and get incision wet. Leave incision uncovered when it is dry and sealed. Use L hand as much as your discomfort allows. Follow up with in 2 weeks. Take ibuprofen 600 mg every 6 hours, if needed, for pain. Referrals: Dale Duran MD [ [facility] STAFF PHYSICIAN] - (f/u in 2 weeks.) Equipment/Supplies: Splint Activity:: Activity as Tolerated Remove Dressings/Wound Care:: 48 hours Shower/Bathe:: 48 hours Diet:: As Tolerated Discharge Orders Discharge Orders: Discharge Order (Routine); Ordered 01/23/20 Ordered By: Dale Duran
[2020-01-23 10:56] VITALS: BP 120/82; PULSE 72; RESP 16; TEMP 36.4; O2SAT 95
--- NOTE | 2020-01-23 12:29 | ROE_ITS ---
Date of service: 01/23/20 Time of Service: 10:29 Operative Note Operative Note DATE OF PROCEDURE: 01/23/20 PRE-OP DIAGNOSIS: Left carpal tunnel syndrome POST-OP DIAGNOSIS: same PROCEDURE: Left endoscopic carpal tunnel release ANESTHESIA: regional COMPLICATIONS: None Patient was transported to: PACU Patient's condition: stable Indications: This is a 40-year-old white female with greater than 6-month history of pain and decreased sensation in the thumb, index, and middle fingers of her left hand. This is not responded to immobilization no restriction of activity. She was seen by neurology and nerve conduction studies were recommended. The nerve conduction studies could not be completed because of severe pain. Because of the length of time of symptoms and the severe pain and dysfunction, carpal tunnel release was recommended despite the lack of nerve conduction studies. Risk complication of the procedure explained to patient in detail preop. The patient wished to undergo the endoscopic technique of carpal tunnel release. Procedure Description: Patient was taken to the operating room on 01/23/2020 where she was placed supine operative table. An IV regional anesthetic was admi nistered to the left upper extremity. Once good anesthesia was obtained the left hand wrist and forearm were prepped and draped free in the usual sterile fashion. I infiltrated the skin over the proximal flexion crease of the left wrist with 2% Xylocaine solution. I then made an incision from the flexor carpi radialis tendon to the flexor carpi all naris tendon in line with the proximal flexion crease of the left wrist. Incision was carried down to the skin and subcutaneous tissue to the fascia. Subcutaneous veins were cauterized. Synovial reflector was then used to free up any soft tissue attachments to the undersurface of the volar carpal ligament. Series of obturators were then introduced to make room for the endoscope. The endoscope/blade device was then introduced in the carpal canal and advanced until the distal edge of the volar carpal ligament was clearly visualized. Care was taken to position the endoscope against the hook of the hamate. The trigger was depressed elevating the blade and the elevated blade was then brought out proximally through the skin incision transecting the volar carpal ligament. The endoscope was then reintroduced in the carpal canal and the median nerve was seen to fall into the defect created by transecting the volar carpal ligament. The wounds irrigated with saline solution. The wound margins were infiltrated with 0.5% Marcaine lc ution. A median nerve block was performed with 0.5% Marcaine solution. The skin edges were approximated with 2 horizontal mattress sutures of 4-0 nylon suture material. Wounds dressed with Xeroform gauze sterile gauze 4 x 4's wrapped with a Kerlix bandage and then wrapped with a 3 inch Sree bandage. Commercial cock-up wrist splint was applied over the dressings. Patient's IV regional anesthesia was reversed without complications. She was discharged to recovery room in good condition. Patient was discharged home from day surgery unit and fully recovered from her IV regional anesthesia. She was instructed to try to elevate her left hand above heart level as much as possible overnight tonight. She is encouraged to wiggle her fingers 10 times an hour while awake to prevent swelling. She is to keep the dressings and splint dry and in place for 48 hours. After 48 hours she can remove her splint and dressings and begin to move her left wrist. She may then shower bathing get her incision wet. She can leave an incision uncovered when is dry and sealed. She can use her left wrist is much as discomfort allows. She should take Tylenol or ibuprofen for pain. She is to follow-up w lashawn Duran in 2 weeks
== END 2020-01-23 11:19 | disposition home or self-care (01) ==
PROVIDERS: PCP Physician Assistant Medical; Visit Provider Orthopaedic Surgery
PROC: 01N54ZZ Release Median Nerve, Percutaneous Endoscopic Approach (ICD-10-PCS; CPT 29848; principal; 2020-01-23 10:00)
DX: G56.02 Carpal tunnel syndrome, left upper limb (principal); I10 Essential (primary) hypertension; J45.909 Unspecified asthma, uncomplicated; K21.9 Gastro-esophageal reflux disease without esophagitis
CPT/HCPCS: 29848; J0690; J1885; J2250; L3908

== ENCOUNTER 2020-05-02 02:56 | Emergency (ER) | payer MEDICAID, SELFPAY ==
--- NOTE | 2020-05-02 03:00 | DI.CT_ITS ---
EXAM: CT RENAL COLIC WO CLINICAL HISTORY: right flank pain. TECHNIQUE: Imaging Protocol: Axial computed tomography images with coronal and sagittal reformatted images were created and reviewed CONTRAST MATERIAL: Intravenous: none Oral: None COMPARISON: CT CT ABDOMEN PELVIS W from 11/01/2019 FINDINGS: VISUALIZED LUNG BASES: No nodules nor pleural effusions evident. ABDOMEN: There is no ascites. LIVER: There is a hepatomegaly and hepatic steatosis again noted. There are no discrete focal hepati c lesions evident. GALLBLADDER/BILIARY: The gallbladder surgically absent. CBD is not dilated. PANCREAS: No evidence of pancreatic mass nor dilatation of the pancreatic duct. SPLEEN: Spleen is not enlarged. No obvious intrasplenic lesions. ADRENALS: There are no significant adrenal masses. KIDNEYS:Left kidney is unremarkable. There is 4 millimeter calculus in the lower right ureter with m ild dilatation of the ureter above this level. This calculus is just above the right ureterovesical junction. There are no calculi in the nondistended urinary bladder. No concerning renal masses evid ent. ABDOMINAL AORTA: Abdominal aorta is not enlarged. LYMPH NODES: There is no retroperitoneal nor paraaortic adenopathy. ABDOMINAL WALL/GI: No evidence of significant anterior abdominal wall hernia. No bowel obstruction. PELVIS: LYMPH NODES: There is no intrapelvic nor inguinal adenopathy. GI: The appendix is surgically absent.No evidence of sigmoid diverticulitis. URINARY BLADDER: No calculi nor obvious masses evident REPRODUCTIVE: Unremarkable OSSEOUS: No significant osseous lesions. IMPRESSION: 1. There is a 4 millimeter calculus in the lower right ureter just above the ureterovesical junction with mild dilatation of the right ureter above this level. No remaining calculi in the kidney. Oppo site-left kidney appears unremarkable. 2. Hepatomegaly and hepatic steatosis again noted. No ominous discrete focal hepatic lesions evident . No ascites. Spleen size upper normal. 3. Gallbladder surgically absent. The biliary tree is not dilated. RADIATION DOSE DELIVERED: 1,220.29mGy.cm Total DLP DATA REPOSITORY: All CT scans at this facility are submitted to the National Radiology Data Registry (NRDR) Dose Index Registry (DIR) with the [employer] ([employer]). RADIATION OPTIMIZATION: All CT scans at this facility use at least one of these dose optimization te chniques: automated exposure control; mA and/or kV adjustment per patient size (includes targeted exa ms where dose is matched to clinical indication); or iterative reconstruction.
[2020-05-02 03:02] VITALS: BP 129/97; PULSE 98; RESP 15; TEMP 36.6; O2SAT 99
--- NOTE | 2020-05-02 03:05 | ED.GENADUL_ITS ---
Discharge Plan Disposition Patient Disposition: HOME Condition: Stable Discharge Details Clinical Impression: Right ureteral stone Primary Care Provider: Elizabeth Benton ED Provider: Rufus Sinclair Home Meds and New Rx's Prescriptions: New levofloxacin 750 mg tablet 750 mg PO DAILY Qty: 5 RF: 0 prochlorperazine maleate [Compazine] 10 mg tablet 10 mg PO TID PRN (Reason: nausea and vomiting) Qty: 30 RF: 0 Continued Flovent HFA 110 mcg/actuation HFA aerosol inhaler 1 puff IH BID RF: 0 metoprolol succinate 100 mg tablet extended release 24 hr 100 mg PO DAILY Qty: 30 RF: 12 spironolactone 25 mg tablet 25 mg PO BID Qty: 60 RF: 12 amitriptyline 25 mg tablet 25 mg PO DAILY RF: 0 oxycodone 10 mg tablet 10 mg PO Q6H PRNRF: 0 lamotrigine 100 mg tablet 100 mg PO DAILY RF: 0 verapamil 120 mg tablet extended release 240 mg PO DAILY RF: 0 enalapril maleate 10 mg tablet 10 mg PO DAILY Qty: 60 RF: 8 chlorthalidone 25 mg tablet 25 mg PO DAILY Qty: 30 RF: 6 Narcan 4 mg/actuation spray,non-aerosol 1 spray LOGAN ONCE PRNRF: 0 alprazolam [Xanax] 1 mg Tablet 1 mg PO BID RF: 0 Discharge Instructions Instructions: Kidney Stones (ED) Additional Instructions: you have a kidney stone that is almost in the bladder I placed you on our follow up list to see urology as soon as possible for follow up return to the emergency department for severe worsening pain, fevers, or persistent vomit Medical Decision Making 40 yo female with hx of kidney stones in the past comes in with complaint of feeling pain in the right oblique area and feels similar to prior kidney stones. HAs had mild intermittent pain for 2 weeks but acutely worsened tonight with n/v. Denies fevers, chills, chest pain, dyspnea. Has no guarding or rebound tenderness, mild cva tenderness on the right, no saddle anesthesia and no weakness on exam. Suspect kidney stone based on her history and presentiation, will evaluate with ct. No abdominal tenderness and is s/p cholecystectomy and exam not consistent with other surgical pathology such as appendicitis, sbo among others. No pain out of proportion to suggest mesenteric ischemia. ct confirms right uvj kidney stone and she feels improved after dialudid. Does have small amount of bacteria in urine, wbc of 17 which could be reactive, has no dysuria or fevers so doubt infected stone but will treat as possible cystitis with levofloxacin. She feels comfortable with d/c and f/u with urology rowdy, return precautions given Differential Diagnosis Differential Diagnosis: kidney stone, pancreatitis, back spasm Medical Records Medical records reviewed: Yes I reviewed the patient's medical records. Imaging Data Radiologic Study: Attestation: I personally reviewed and interpreted this imaging study as follows: Imaging: CT Scan Radiologist's impression: IMPRESSION: Mild right-sided hydronephrosis and hydroureter noted to the level of an obstructing distal right ureteral stone measuring 4 x 2 mm just proximal to the UVJ. Lab Data Lab results reviewed: Yes I reviewed the patient's lab results. HPI General Mode of arrival: ambulatory . Date/Time Provider Initiated Documentation: 05/02/20 02:58 . Limitations to Documentation: no limitations . Information obtained by: patient . History of Present Illness 40 year old F presents to the emergency department with the chief complaint of right flank pain, described as moderate, Patient started experiencing this week(s) (2) and it has been intermittent. No relieving factors improve symptom(s), No exacerbating factors reported . Patient notes nausea/vomiting. Patient did receive the following treatments prior to arrival, none Related Data Home Medications Medication Instructions Recorded Confirmed naloxone 4 mg/actuation nasal spray 1 spray LOGAN ONCE PRN 04/19/18 02/07/20 alprazolam [Xanax] 1 mg PO BID 07/17/18 05/02/20 verapamil 120 mg tablet,extended 240 mg PO DAILY tab 09/21/19 05/02/20 release metoprolol succinate 100 mg 100 mg PO DAILY #30 tab 11/04/19 02/07/20 tablet,extended release 24 hr spironolactone 25 mg tablet 25 mg PO BID #60 tab 11/04/19 05/02/20 fluticasone propionate 110 1 puff IH BID 11/10/19 02/07/20 mcg/actuation HFA aerosol inhaler chlorthalidone 25 mg tablet 25 mg PO DAILY #30 tab 11/29/19 02/07/20 enalapril maleate 10 mg tablet 10 mg PO DAILY #60 tab 11/29/19 02/07/20 amitriptyline 25 mg tablet 25 mg PO DAILY 04/18/20 05/02/20 lamotrigine 100 mg tablet 100 mg PO DAILY 04/18/20 05/02/20 oxycodone 10 mg tablet 10 mg PO Q6H PRN 04/18/20 05/02/20 levofloxacin 750 mg PO DAILY #5 tab 05/02/20 prochlorperazine maleate 10 mg PO TID PRN #30 tab 05/02/20 [Compazine] Previous Rx's Medication Instructions Recorded metoprolol succinate 100 mg 100 mg PO DAILY #30 tab 11/04/19 tablet,extended release 24 hr spironolactone 25 mg tablet 25 mg PO BID #60 tab 11/04/19 chlorthalidone 25 mg tablet 25 mg PO DAILY #30 tab 11/29/19 enalapril maleate 10 mg tablet 10 mg PO DAILY #60 tab 11/29/19 levofloxacin 750 mg PO DAILY #5 tab 05/02/20 prochlorperazine maleate 10 mg PO TID PRN #30 tab 05/02/20 [Compazine] Allergies Allergy/AdvReac Type Severity Reaction Status Date / Time prednisone Allergy Intermediate It makes Verified 05/02/20 03:06 me feel weird codeine AdvReac Mild Nausea Verified 05/02/20 03:06 morphine AdvReac Mild Nausea Verified 05/02/20 03:06 tramadol HCl [From Ultram] AdvReac Mild Nausea Verified 05/02/20 03:06 tegaderm tape AdvReac Intermediate ariza my Uncoded 05/02/20 03:06 skin General JOEL: 3 Review of Systems All systems reviewed & are unremarkable except as noted in HPI and below Constitutional Constitutional: Denies chills, Denies fever(s) and Denies weakness Cardiovascular Cardiovascular: Denies chest pain and Denies dyspnea Respiratory Respiratory: Denies cough and Denies dyspnea Musculoskeletal Musculoskeletal: Denies joint swelling Neurologic Neurologic: Denies weakness [facility] Medical History (Updated 05/02/20 @ 03:58 by Rufus Sinclair MD) Abdominal pain Active asthma ADD (attention deficit disorder) Affective bipolar disorder Amenorrhea Bilateral kidney stones Causalgia of left upper extremity Cervical disc disease Chest pain at rest Chronic headache Chronic insomnia Chronic pain Chronic wrist pain Cold sore Conversion disorder tremor, stutter, weakness CVA tenderness Depression with anxiety Dizziness Essential hypertension Essential tremor Gastritis Headache, chronic migraine without aura Carcamo sign present Hydronephrosis Kidney stones Knee pain Left-sided thoracic back pain Medication overuse headache Memory loss Migraines Neuralgia Numbness and tingling Psychogenic tremor Rectal bleeding Right arm weakness Upper respiratory infection Ureteral calculi Surgical History (Updated 02/07/20 @ 17:12 by Danii Green) Repair of umbilical hernia S/P appendectomy S/P cholecystectomy S/P knee surgery Family History Father Cerebral aneurysm Social History (Updated 01/18/20 @ 14:32 by Danii Green) Smoking/Tobacco Use Status: Current every day Smoking risk assessment performed?: Yes Alcohol Intake: never Drug use: Never Substance use type: does not use Household members: significant other and children Number of Children: 1 Current gender identity: female Do you feel safe at home: Yes Do you feel safe in your relationship?: Yes Exam Const General: no acute distress Orientation: alert HENMT Head: normal to inspection Ears: external ears normal General nose exam: external nose normal Mouth: moist mucous membranes Eyes General: appearance normal, both eyes and all related structures Neck Neck: normal visual inspection Resp Effort & Inspection: normal respiratory effort and able to speak in complete sentences Cardio Rate: regular rate GI Palpation: soft, not firm and no guarding Skin General skin exam: no rashes or lesions noted Neuro General: patient alert and patient oriented x3 Extrem General: normal to inspection Psych Mental Status: mental status grossly normal
[2020-05-02 03:17] LABS: Bilirubin Negative (Negative); Blood Negative (Negative); Clarity Clear (Clear); Glucose Negative (Negative); Ketones Negative (Negative); Leukocyte Esterase Small (Negative); Nitrite Negative (Negative); Urobilinogen 0.2 EU/dL (Up TO 0.2); pH 5.5 (5-8)
[2020-05-02] MEDS: Ketorolac 15 MG/ML VIAL IVP (03:19)
[2020-05-02] MEDS: Ondansetron 4 MG/2 ML VIAL IVP (03:19)
[2020-05-02 03:32] LABS: Bacteria Rare HPF (Negative); C & S Indicated? Yes; Casts Negative LPF (Negative); Crystals Negative HPF (Negative); Epithelial Cells Few HPF (Negative); Mucus Negative (Negative); Other Cells Negative (Negative); RBC 0-2 HPF (0-2)
[2020-05-02 03:32] LABS: ALT 34 U/L (14-59); AST 16 U/L (15-37); Albumin 3.6 g/dL (3.4-5.0); Alkaline Phosphatase 116 U/L (46-116); BUN 22 mg/dL (7-18); Bilirubin, Total 0.2 mg/dL (0.2-1.0); CREATININE 1.6 mg/dL (0.55-1.02); Calcium 8.7 mg/dL (8.5-10.1); Chloride 100 mmol/L (98-107); Estimated GFR 35.35 (mL/min/1.73m2); Glucose 187 mg/dL (74-106); Lipase 226 U/L (73-393); Potassium 3.8 mmol/L (3.5-5.1); Sodium 134 mmol/L (136-145); Total Protein 8.2 g/dL (6.4-8.2)
[2020-05-02 03:33] LABS: Bilirubin, Direct < 0.05 mg/dL (0.00-0.20)
[2020-05-02] MEDS: Normal Saline 1,000 ML 1000 ML IV (03:40)
[2020-05-02] MEDS: HYDROmorphone 2 MG/ML VIAL 1 MG IVP ×2 (03:41→04:10)
[2020-05-02 03:42] VITALS: BP 109/68; PULSE 79; RESP 15; O2SAT 96
[2020-05-02 03:45] LABS: Absolute Basophil Count 0.11 10^3/uL (0.0-0.2); Absolute Eosinophil Count 0.46 10^3/uL (0.0-0.7); Basophils % 0.6; Eosinophils % 2.6; HCT 42.9 % (36.0-46.0); HGB 14.2 g/dL (11.2-15.7); Immature Grans % 0.6; Lymphocytes % 27.2; MCH 31.4 pg (27.0-33.0); MCHC 33.1 % (32.0-36.0); MCV 94.9 fL (80-95); MPV 10.1 fL (8.0-11.0); Monocytes % 6.6; Neutrophils % 62.4; Nucleated RBC 0 %; Platelet Count 387 10^3/uL (130-400); RBC 4.52 10^6/uL (3.93-5.22); RDW 12.4 % (11.7-14.6); RDW-SD 43.3 fL; WBC 17.66 10^3/uL (4.4-10.8)
[2020-05-02 03:46] LABS: Absolute Monocyte Count 1.17 10^3/uL (0.1-0.8); Absolute Neutrophil Count 11.02 10^3/uL (1.2-6.7)
--- NOTE | 2020-05-02 03:46 | DI.VRAD_ITS ---
PROCEDURE INFORMATION: Exam: CT Abdomen And Pelvis Without Contrast Exam date and time: 05/02/2020 3:07 AM Age: 40 years old Clinical indication: Abdominal pain and other: Flank; Right; Prior surgery; Surgery date: 6+ months; Surgery type: Cholecystectomy, appendectomy, hernia repair, kidney stone removal; Patient HX: R flank pain and abdominal pain, HX of kidney stones TECHNIQUE: Imaging protocol: Computed tomography of the abdomen and pelvis without contrast. COMPARISON: CT renal colic wo 07/17/2018 10:00 PM FINDINGS: Liver: Hepatic steatosis is present. Gallbladder and bile ducts: The patient is status post cholecystectomy. Pancreas: Normal. No ductal dilation. Spleen: Normal. No splenomegaly. Adrenal glands: Normal. No mass. Kidneys and ureters: Mild right-sided hydronephrosis and hydroureter noted to the level of an obstructing distal right ureteral stone measuring 4 x 2 mm just proximal to the UVJ. Stomach and bowel: Unremarkable. No obstruction. No mucosal thickening. Appendix: No evidence of appendicitis. Intraperitoneal space: Unremarkable. No free air. No significant fluid collection. Vasculature: Unremarkable. No abdominal aortic aneurysm. Lymph nodes: Unremarkable. No enlarged lymph nodes. Urinary bladder: Unremarkable as visualized. Reproductive: Unremarkable as visualized. Bones/joints: Unremarkable. No acute fracture. Soft tissues: Unremarkable. IMPRESSION: Mild right-sided hydronephrosis and hydroureter noted to the level of an obstructing distal right ureteral stone measuring 4 x 2 mm just proximal to the UVJ. Dictated and Authenticated by: Gene Maddox MD. Ordering:EBENEZER Hooper MD
[2020-05-02] MEDS: levoFLOXacin 500 MG, levoFLOXacin 250 MG 750 MG PO (04:14)
--- NOTE | 2020-05-02 05:52 | NUR.NOTE ---
Nursing Note: [facility]erral [facility] follow up [id number] 05/02/20
== END 2020-05-02 04:16 | disposition home or self-care (01) ==
PROVIDERS: Emergency Provider Emergency Medicine; PCP Physician Assistant Medical
DX: N20.1 Calculus of ureter (principal); I10 Essential (primary) hypertension
CPT/HCPCS: 80053; 81025; 83690; 96374; 96375; 96376; 99285; 74176; 81003; 81015; 82248; 85025; 87086; 99284; J1885; J2405

== ENCOUNTER 2020-05-14 10:27 | Emergency (ER) | payer MEDICAID, SELFPAY ==
[2020-05-14] VITALS (23 sets, daily range): BP systolic 100–129; BP diastolic 65–88; PULSE 68–89; RESP 14–26; TEMP 36.1; O2SAT 97–100
--- NOTE | 2020-05-14 10:40 | ED.GENADUL_ITS ---
Discharge Plan Disposition Patient Disposition: HOME Condition: Stable Discharge Details Clinical Impression: Abdominal pain, Constipation Primary Care Provider: Elizabeth Benton ED Provider: Cici Malin Home Meds and New Rx's Prescriptions: New polyethylene glycol 3350 [ClearLax] 17 gram powder in packet 17 g PO DAILY 7 Days Qty: 14 RF: 0 No Action Flovent HFA 110 mcg/actuation HFA aerosol inhaler 1 puff IH BID RF: 0 metoprolol succinate 100 mg tablet extended release 24 hr 100 mg PO DAILY Qty: 30 RF: 12 spironolactone 25 mg tablet 25 mg PO BID Qty: 60 RF: 12 amitriptyline 25 mg tablet 25 mg PO DAILY RF: 0 oxycodone 10 mg tablet 10 mg PO Q6H PRNRF: 0 lamotrigine 100 mg tablet 100 mg PO DAILY RF: 0 verapamil 120 mg tablet extended release 240 mg PO DAILY RF: 0 enalapril maleate 10 mg tablet 10 mg PO DAILY Qty: 60 RF: 8 chlorthalidone 25 mg tablet 25 mg PO DAILY Qty: 30 RF: 6 Narcan 4 mg/actuation spray,non-aerosol 1 spray LOGAN ONCE PRNRF: 0 alprazolam [Xanax] 1 mg Tablet 1 mg PO BID RF: 0 prochlorperazine maleate [Compazine] 10 mg tablet 10 mg PO TID PRN (Reason: nausea and vomiting) Qty: 30 RF: 0 pantoprazole 40 mg tablet,delayed release (DR/EC) 40 mg PO DAILY RF: 0 albuterol sulfate [ProAir HFA] 90 mcg/actuation HFA aerosol inhaler 2 puff INHALATION PRN PRNRF: 0 zolpidem 12.5 mg tablet,ext release multiphase 12.5 mg PO HS RF: 0 Discharge Instructions Instructions: Constipation (ED), Abdominal Pain (ED) Additional Instructions: Follow up with primary care provider in 3-5 days. Return to ED sooner if any w orsening or concerns. Increase oral fluids. Please take Tylenol with food every 4-6 hours as needed for pain and swelling. Please keep your previously scheduled urology follow-up appointment. Please take the MiraLAX daily as prescribed as needed for constipation. Return to the ED for any worsening blood in your stool, worsening abdominal pain or any concerns. Referrals: Elizabeth Benton [Primary Care Provider] - Medical Decision Making 40-year-old female presents to the ER with chief complaint of left upper quadrant abdominal pain and a bulge which she has noticed for the last 2 weeks, she reports that she has been nauseated no actual vomiting, pain has gotten worse this morning. She also reports hematochezia and constipation having to strain for bowel movement with bright red blood and she also states sometimes dark stool. Patient was seen in the ED on May 02 diagnosed with a right kidney stone above the UVJ, did have a follow-up with urology on May 08 and was placed on Flomax. Patient did take 10 mg oxycodone 0600 this morning without relief, she did take nausea medication at approximately 0700 she has a past medical history of affective bipolar disorder, ADD, right ureteral stone, depression with anxiety, hypertension, carpal tunnel syndrome surgical history includes cholecystectomy, appendectomy, umbilical hernia repair and knee surgery. CBC shows white blood cell count 11.38 which is down from last lab value of 17,000, absolute neutrophils 4.12, CMP is largely within normal limits BUN is 17 creatinine is 1.6, GFR 35.35 glucose is 133 magnesium slightly low at 1.7 which seems to be at patient's baseline. Albumin is 3.3 lipase is within normal limits at 146. Urinalysis shows specific gravity of greater than 1030, large blood no protein no ketones, trace leukocytes greater than 50 RBCs many epithelial cells few bacteria cultures medicated this time due to squamous contamination. Patient does have a history of kidney stone which may explain the blood in her urine. At this time CT abdomen pelvis with oral and IV contrast ordered to rule out hernia, history of inflamed bowel wall, rule out fistula due to report of hematochezia and rectal pain. EXAM: CT ABDOMEN PELVIS W CLINICAL HISTORY: R/O new hernia, LUQ abd pain, hematochezia. TECHNIQUE: Imaging Protocol: Axial computed tomography images with coronal and sagittal reformatted images were created and reviewed CONTRAST MATERIAL: Intravenous: Omnipaque 350 Contrast volume:100 ml Oral: Yes COMPARISON: CT CT RENAL COLIC WO from 05/02/2020 FINDINGS: ABDOMEN: Lung Bases: Normal where visualized. Liver: Enlarged liver. Severe patent steatosis.. No measurable mass. Gallbladder and biliary tract: Status post cholecystectomy. No biliary dilatation. Pancreas: Normal density, no abnormal calcifications or inflammatory process. Spleen: Normal. Kidneys: Normal size, contour and axis. Mild right hydronephrosis. No change in position of the 4 millimeter calculus above the ureterovesical junction. No additional urinary tract calculi. No masses seen. No perinephric collection. Adrenal glands: No masses seen. Abdominal Aorta: Abdominal portion non-dilated. Prior anterior abdominal wall hernia repair. No change in appearance. PELVIS: Bladder: Symmetric distention, no gross wall thickening. Bowel: Oral contrast is seen within the stomach through distal small bowel. The colon is not yet opacified. There is a moderate quantity of stool mainly in the transverse through sigmoid regions. There is no abnormal colonic distension. No inflammation is identified. The patient is status post appendectomy. No obstruction or bowel wall thickening. Peritoneal cavity: No ascites, collection or mesenteric inflammatory response. Bones: Mild degenerative changes. Reproductive organs: Within normal limits. Lymph nodes: Unremarkable. Impression: Mild right hydronephrosis secondary to a 4 millimeter stone just above the right ureterovesical junction. This is unchanged in position when compared with the previous exam. No new abnormalities. Discussed CT results and lab results with patient who verbalized understanding. Discussed kidney functions which I am concerned about a keep slowly getting worse. She does have a recurrent follow-up with urology on the which she intends to keep I did encourage her to keep this appointment. I did discuss follow-up with PCP and strict return instructions, verbalized understanding. HPI General Mode of arrival: ambulatory . Date/Time Provider Initiated Documentation: 05/14/20 10:31 . Limitations to Documentation: no limitations . Information obtained by: patient . HPI Narrative: 40-year-old female presents to the ER with chief complaint of left upper quadrant abdominal pain and a bulge which she has noticed for the last 2 weeks, she reports that she has been nauseated no actual vomiting, pain has gotten worse this morning. She also reports hematochezia and constipation having to strain for bowel movement with bright red blood and she also states sometimes dark stool. Patient was seen in the ED on May 02 diagnosed with a right kidney stone above the UVJ, did have a follow-up with urology on May 08 and was placed on Flomax. Patient did take 10 mg oxycodone 0600 this morning without relief, she did take nausea medication at approximately 0700 she has a past medical history of affective bipolar disorder, ADD, right ureteral stone, depression with anxiety, hypertension, carpal tunnel syndrome surgical history includes cholecystectomy, appendectomy, umbilical hernia repair and knee surgery. Related Data Home Medications Medication Instructions Recorded Confirmed naloxone 4 mg/actuation nasal spray 1 spray LOGAN ONCE PRN 04/19/18 05/14/20 alprazolam [Xanax] 1 mg PO BID 07/17/18 05/14/20 verapamil 120 mg tablet,extended 240 mg PO DAILY tab 09/21/19 05/14/20 release metoprolol succinate 100 mg 100 mg PO DAILY #30 tab 11/04/19 05/14/20 tablet,extended release 24 hr spironolactone 25 mg tablet 25 mg PO BID #60 tab 11/04/19 05/14/20 fluticasone propionate 110 1 puff IH BID 11/10/19 05/14/20 mcg/actuation HFA aerosol inhaler chlorthalidone 25 mg tablet 25 mg PO DAILY #30 tab 11/29/19 05/14/20 enalapril maleate 10 mg tablet 10 mg PO DAILY #60 tab 11/29/19 05/14/20 amitriptyline 25 mg tablet 25 mg PO DAILY 04/18/20 05/14/20 lamotrigine 100 mg tablet 100 mg PO DAILY 04/18/20 05/14/20 oxycodone 10 mg tablet 10 mg PO Q6H PRN 04/18/20 05/14/20 prochlorperazine maleate 10 mg PO TID PRN #30 tab 05/02/20 05/14/20 [Compazine] albuterol sulfate [ProAir HFA] 2 puff INHALATION PRN PRN 05/14/20 05/14/20 pantoprazole 40 mg PO DAILY 05/14/20 05/14/20 polyethylene glycol 3350 [ClearLax] 17 g PO DAILY 7 Days #14 ea 05/14/20 zolpidem 12.5 mg PO HS 05/14/20 05/14/20 Previous Rx's Medication Instructions Recorded metoprolol succinate 100 mg 100 mg PO DAILY #30 tab 11/04/19 tablet,extended release 24 hr spironolactone 25 mg tablet 25 mg PO BID #60 tab 11/04/19 chlorthalidone 25 mg tablet 25 mg PO DAILY #30 tab 11/29/19 enalapril maleate 10 mg tablet 10 mg PO DAILY #60 tab 11/29/19 prochlorperazine maleate 10 mg PO TID PRN #30 tab 05/02/20 [Compazine] polyethylene glycol 3350 [ClearLax] 17 g PO DAILY 7 Days #14 ea 05/14/20 Allergies Allergy/AdvReac Type Severity Reaction Status Date / Time tamsulosin [From Flomax] Allergy light Verified 05/14/20 10:35 headed/dizzy prednisone AdvReac Intermediate It makes Verified 05/14/20 10:35 me feel weird codeine AdvReac Mild Nausea Verified 05/14/20 10:35 morphine AdvReac Mild Nausea Verified 05/14/20 10:35 tramadol HCl [From Ultram] AdvReac Mild Nausea Verified 05/14/20 10:35 tegaderm tape AdvReac Intermediate ariza my Uncoded 05/14/20 10:35 skin General Stated Complaint: Abd Prob JOEL: 3 Review of Systems Narrative: Constitutional: Negative for weight loss, alert and oriented, well groomed, normal body habitus, appears comfortable. HEENT: Denies trauma, headaches, blurry vision, nasal discharge, sore throat, trouble swallowing. Chest: Denies chest pain, palpitations, irregular rhythm, hypertension. Respiratory: Denies Shortness of breath, cough, hemoptysis. GI: Denies vomiting, positive left upper quadrant abdominal pain, nausea, loose stools, reports blood in stool, rectal pain. : Denies dysuria, hematuria, flank pain, denies vaginal bleeding. Neuro: Denies dizziness, blurry vision, weakness, syncope, headache or facial numbness. Hematologic: Denies easy bruising, intolerance to heat or cold, hair loss. [facility] Medical History Abdominal pain Active asthma ADD (attention deficit disorder) Affective bipolar disorder Amenorrhea Bilateral kidney stones Causalgia of left upper extremity Cervical disc disease Chest pain at rest Chronic headache Chronic insomnia Chronic pain Chronic wrist pain Cold sore Conversion disorder tremor, stutter, weakness CVA tenderness Depression with anxiety Dizziness Essential hypertension Essential tremor Gastritis Headache, chronic migraine without aura Carcamo sign present Hydronephrosis Kidney stones Knee pain Left-sided thoracic back pain Medication overuse headache Memory loss Migraines Neuralgia Numbness and tingling Psychogenic tremor Rectal bleeding Right arm weakness Upper respiratory infection Ureteral calculi Surgical History Repair of umbilical hernia S/P appendectomy S/P cholecystectomy S/P knee surgery Family History Father Cerebral aneurysm Social History Smoking/Tobacco Use Status: Current every day Smoking risk assessment performed?: Yes Alcohol Intake: never Drug use: Never Substance use type: does not use Household members: significant other and children Number of Children: 1 Current gender identity: female Do you feel safe at home: Yes Do you feel safe in your relationship?: Yes Exam Narrative Exam Narrative: Constitutional: Alert and oriented x3. Appears stated age. Obese body habitus. Tearful on exam. Head: Normocephalic, no trauma. Eyes: Pupils PERRLA, Red reflex noted, EOM's intact. Eyelids symmetrical without lesions, discharge, or swelling. ENT: External ear normal to inspection, Normal dentition, Posterior pharynx WNL, no exudate. Chest: RRR, Normal S1, S2, distal pulses intact. Resp: Lungs clear to auscultation bilaterally, no wheezes, rales, or rhonchi. Abdomen: Soft, nondistended, positive guarding with exam, tender to palpation left upper and mid epigastric quadrant, no palpable hernia, patient tolerated rectal exam with difficulty reporting pain, no visualized hernias nor internal hernias palpated, guaiac negative at this time however did not obtain very big stool sample. Musculoskeletal: Normal gait, 5/5 strength to all four extremities. Skin: No suspicious rashes or lesions. Capillary refill less than 2 sec. Neurologic: Cranial nerves II-XII intact. Alert and oriented x 3. DTR's intact. Hematologic/Lymphatic: No ecchymosis, no lymphadenopathy. Course Vital Signs Vital signs: Vital Signs Temperature 36.1 C L 05/14/20 10:32 Pulse 89 05/14/20 10:32 Respiratory Rate 20 05/14/20 10:32 Blood Pressure 129/88 05/14/20 10:32 Pulse Oximetry 99 05/14/20 10:32 Temperature 36.1 C L 05/14/20 10:32 Temperature Source Skin 05/14/20 10:32 Pulse 89 05/14/20 10:32 Respiratory Rate 20 05/14/20 10:32 Blood Pressure 129/88 05/14/20 10:32 Blood Pressure Position Sitting 05/14/20 10:32 Pulse Oximetry 99 05/14/20 10:32 Oxygen Delivery Method Room Air 05/14/20 10:32 Oxygen Flow Rate 0 05/14/20 10:32 Pain Level 8 05/14/20 10:32 Procedures Stool Hemoccult Procedural Steps Taken: stool placed in appropriate test area, developer placed on stool and control areas and controls appropriately positive and negative Hemoccult result: negative
[2020-05-14 10:50] LABS: Bilirubin Negative (Negative); Blood Large (Negative); Clarity Sl Cloudy (Clear); Glucose Negative (Negative); Ketones Negative (Negative); Leukocyte Esterase Trace (Negative); Nitrite Negative (Negative); Specific Gravity >= 1.030 (1.005-1.025); Urobilinogen 0.2 EU/dL (Up TO 0.2); pH 5.5 (5-8)
[2020-05-14 10:58] LABS: Bacteria Few HPF (Negative); C & S Indicated? No/Sq. Contamination; Casts Negative LPF (Negative); Crystals Negative HPF (Negative); Epithelial Cells Many HPF (Negative); Mucus Trace (Negative); RBC >50 HPF (0-2)
[2020-05-14] MEDS: Normal Saline 1,000 ML 1000 ML IV (11:03)
[2020-05-14 11:09] LABS: Abs Immature Grans 0.07 10^3/uL (0.0-0.06); Absolute Basophil Count 0.11 10^3/uL (0.0-0.2); Absolute Eosinophil Count 0.38 10^3/uL (0.0-0.7); Absolute Lymphocyte Count 4.12 10^3/uL (1.2-3.4); Absolute Monocyte Count 0.75 10^3/uL (0.1-0.8); Absolute Neutrophil Count 5.95 10^3/uL (1.2-6.7); Eosinophils % 3.3; HCT 42.6 % (36.0-46.0); HGB 14.1 g/dL (11.2-15.7); Immature Grans % 0.6; Lymphocytes % 36.2; MCH 31.5 pg (27.0-33.0); MCHC 33.1 % (32.0-36.0); MCV 95.3 fL (80-95); MPV 9.5 fL (8.0-11.0); Monocytes % 6.6; Neutrophils % 52.3; Nucleated RBC 0 %; Platelet Count 336 10^3/uL (130-400); RBC 4.47 10^6/uL (3.93-5.22); RDW 12.3 % (11.7-14.6); RDW-SD 43.2 fL; WBC 11.38 10^3/uL (4.4-10.8)
[2020-05-14 11:18] LABS: ALT 30 U/L (14-59); AST 19 U/L (15-37); Albumin 3.3 g/dL (3.4-5.0); Alkaline Phosphatase 93 U/L (46-116); Anion Gap 12.6 mmol/L (3-11); BUN 17 mg/dL (7-18); Bilirubin, Total 0.2 mg/dL (0.2-1.0); CO2 21.4 mmol/L (21.0-32.0); CREATININE 1.6 mg/dL (0.55-1.02); Calcium 8.7 mg/dL (8.5-10.1); Chloride 102 mmol/L (98-107); Estimated GFR 35.35 (mL/min/1.73m2); Glucose 133 mg/dL (74-106); Lipase 146 U/L (73-393); Magnesium 1.7 mg/dL (1.8-2.4); Potassium 4.2 mmol/L (3.5-5.1); Sodium 136 mmol/L (136-145); Total Protein 7.6 g/dL (6.4-8.2)
[2020-05-14] MEDS: fentaNYL 100 MCG/2 ML VIAL 25 MCG IVP (11:28)
[2020-05-14] MEDS: Ondansetron 4 MG/2 ML VIAL IVP (11:28)
[2020-05-14] MEDS: Omnipaque 350 MG/ML 100 ML BTL IJ (13:16)
[2020-05-14] MEDS: Normal Saline - Diluent 50 ML VIAL IV (13:16)
[2020-05-14] MEDS: Normal Saline Flush 10 ML SYR IVP (13:17)
--- NOTE | 2020-05-14 13:20 | DI.CT_ITS ---
EXAM: CT ABDOMEN PELVIS W CLINICAL HISTORY: R/O new hernia, LUQ abd pain, hematochezia. TECHNIQUE: Imaging Protocol: Axial computed tomography images with coronal and sagittal reformatted images were created and reviewed CONTRAST MATERIAL: Intravenous: Omnipaque 350 Contrast volume:100 ml Oral: Yes COMPARISON: CT CT RENAL COLIC WO from 05/02/2020 FINDINGS: ABDOMEN: Lung Bases: Normal where visualized. Liver: Enlarged liver. Severe patent steatosis.. No measurable mass. Gallbladder and biliary tract: Status post cholecystectomy. No biliary dilatation. Pancreas: Normal density, no abnormal calcifications or inflammatory process. Spleen: Normal. Kidneys: Normal size, contour and axis. Mild right hydronephrosis. No change in position of the 4 m illimeter calculus above the ureterovesical junction. No additional urinary tract calculi. No christopher s seen. No perinephric collection. Adrenal glands: No masses seen. Abdominal Aorta: Abdominal portion non-dilated. Prior anterior abdominal wall hernia repair. No change in appearance. PELVIS: Bladder: Symmetric distention, no gross wall thickening. Bowel: Oral contrast is seen within the stomach through distal small bowel. The colon is not yet opa cified. There is a moderate quantity of stool mainly in the transverse through sigmoid regions. The re is no abnormal colonic distension. No inflammation is identified. The patient is status post poncho endectomy. No obstruction or bowel wall thickening. Peritoneal cavity: No ascites, collection or mesenteric inflammatory response. Bones: Mild degenerative changes. Reproductive organs: Within normal limits. Lymph nodes: Unremarkable. Impression: Mild right hydronephrosis secondary to a 4 millimeter stone just above the right ureterovesical junct ion. This is unchanged in position when compared with the previous exam. No new abnormalities. RADIATION DOSE DELIVERED: 1,332.37mGy.cm Total DLP DATA REPOSITORY: All CT scans at this facility are submitted to the National Radiology Data Registry (NRDR) Dose Index Registry (DIR) with the [employer] ([employer]). RADIATION OPTIMIZATION: All CT scans at this facility use at least one of these dose optimization te chniques: automated exposure control; mA and/or kV adjustment per patient size (includes targeted exa ms where dose is matched to clinical indication); or iterative reconstruction.
== END 2020-05-14 14:30 | disposition home or self-care (01) ==
PROVIDERS: Emergency Provider Registered Nurse Emergency; PCP Physician Assistant Medical
DX: R10.12 Left upper quadrant pain (principal); K59.00 Constipation, unspecified; R11.0 Nausea; K92.1 Melena
CPT/HCPCS: 80053; 81025; 83690; 96361; 96374; 96375; 99285; 74177; 81003; 81015; 83735; 85025; 99284; J2405; J3010; J3490

== ENCOUNTER 2020-05-28 02:15 | Outpatient (CLI) | payer MEDICAID, SELFPAY ==
--- NOTE | 2020-05-28 06:45 | DI.US_ITS ---
EXAM: US RENAL CLINICAL HISTORY: monitoring kidney stone,BILAT,N20.0 TECHNIQUE: Ultrasound of both kidneys performed using standard protocol. COMPARISON: US US renal from 10/07/2018 FINDINGS: RIGHT KIDNEY: Measures 10.2 cm in length. No cysts evident. Normal cortical thickness and corticomedullary differen tiation .No solid masses No intrarenal calculi nor hydronephrosis. LEFT KIDNEY: Measures 11.4 cm in length. No cysts evident. Normal cortical thickness and corticomedullary differe ntiaion. No solids masses. No intrarenal calculi nor hydonephrosis. URINARY BLADDER: Prevoid volume is only 37 cc Postvoid volume is not determined. No evidence of obvious bladder mass nor diverticuli. Ureterovesical jets: Both identified and appear symmetrical IMPRESSION: 1. No significant ultrasound findings in the kidneys. 2. Not enough urine in the bladder for adequate evaluation the bladder lumen. DATA REPOSITORY:
== END 2020-05-28 02:35 ==
PROVIDERS: PCP Physician Assistant Medical; Visit Provider Nurse Practitioner Gerontology
DX: Z87.442 Personal history of urinary calculi (principal)
CPT/HCPCS: 76770

== ENCOUNTER 2020-06-11 14:13 | Outpatient (REF) | payer MEDICAID, SELFPAY ==
[2020-06-11 15:28] LABS: C Diff PCR Negative (Negative)
== END 2020-06-11 14:14 | disposition home or self-care (01) ==
LOC: LBN 14:13
PROVIDERS: PCP Physician Assistant Medical; Visit Provider Physician Assistant Medical
DX: R11.2 Nausea with vomiting, unspecified (principal); K58.0 Irritable bowel syndrome with diarrhea; R19.7 Diarrhea, unspecified; Z51.81 Encounter for therapeutic drug level monitoring
CPT/HCPCS: 87329; 87493

== ENCOUNTER 2020-06-21 14:48 | Outpatient (CLI) | payer MEDICAID, SELFPAY ==
[2020-06-21 15:56] LABS: Abs Immature Grans 0.06 10^3/uL (0.0-0.06); Absolute Basophil Count 0.08 10^3/uL (0.0-0.2); Absolute Eosinophil Count 0.34 10^3/uL (0.0-0.7); Absolute Lymphocyte Count 3.42 10^3/uL (1.2-3.4); Absolute Neutrophil Count 8.88 10^3/uL (1.2-6.7); Basophils % 0.6; Eosinophils % 2.5; HCT 43.5 % (36.0-46.0); HGB 14.3 g/dL (11.2-15.7); Immature Grans % 0.4; Lymphocytes % 25.4; MCH 31.8 pg (27.0-33.0); MCHC 32.9 % (32.0-36.0); MCV 96.9 fL (80-95); MPV 9.7 fL (8.0-11.0); Monocytes % 5.2; Neutrophils % 65.9; Nucleated RBC 0 %; Platelet Count 394 10^3/uL (130-400); RBC 4.49 10^6/uL (3.93-5.22); RDW 12.5 % (11.7-14.6); RDW-SD 45.1 fL; WBC 13.48 10^3/uL (4.4-10.8)
[2020-06-21 16:06] LABS: Hemoglobin A1C 6.5 % (<5.7)
[2020-06-21 16:25] LABS: C-Reactive Protein 2.34 mg/dL (0.0-0.3); TSH (W/Ref FT4) 1.82 uIU/mL (0.36-3.74)
[2020-06-25 13:04] LABS: IgA 276 mg/dL (85-499); Interpretation (See Note); Tissue Transglutaminase IgA <1.2 U/mL (<4.0)
== END 2020-06-21 14:49 | disposition home or self-care (01) ==
LOC: LBO 14:51
PROVIDERS: PCP Physician Assistant Medical; Visit Provider Surgery
DX: R19.7 Diarrhea, unspecified (principal); R10.9 Unspecified abdominal pain; I10 Essential (primary) hypertension; R73.01 Impaired fasting glucose; F31.9 Bipolar disorder, unspecified; F60.3 Borderline personality disorder; G47.33 Obstructive sleep apnea (adult) (pediatric)
CPT/HCPCS: 36415; 82784; 83516; 83036; 84443; 85025; 86140

== ENCOUNTER 2020-06-25 11:41 | Outpatient (REF) | payer MEDICAID, SELFPAY ==
[2020-06-25 21:03] LABS: Campylobacter PCR Negative (Negative); Salmonella PCR Negative (Negative); Shiga Toxin PCR Negative (Negative); Shigella/Enteroinvasive Ecoli Negative (Negative)
[2020-06-27 15:11] LABS: Calprotectin <15.6 mcg/g
== END 2020-06-25 11:42 | disposition home or self-care (01) ==
LOC: LBN 11:41
PROVIDERS: PCP Physician Assistant Medical; Visit Provider Surgery
DX: R19.7 Diarrhea, unspecified (principal); R73.01 Impaired fasting glucose; R10.9 Unspecified abdominal pain; K21.9 Gastro-esophageal reflux disease without esophagitis; I10 Essential (primary) hypertension
CPT/HCPCS: 87505; 83993

== ENCOUNTER 2020-07-04 03:21 | Outpatient (CLI) | payer MEDICAID, SELFPAY ==
[2020-07-04 10:19] LABS: Source Nasal/Nares
[2020-07-04 14:18] LABS: COVID-19 PCR Negative (Negative)
== END 2020-07-04 03:22 | disposition home or self-care (01) ==
LOC: LBO 03:21
PROVIDERS: PCP Physician Assistant Medical; Visit Provider Surgery
DX: Z20.822 Contact with and (suspected) exposure to COVID-19 (principal); Z01.818 Encounter for other preprocedural examination
CPT/HCPCS: 87635

== ENCOUNTER 2020-07-06 11:58 | Day surgery (SDC) | payer MEDICAID, SELFPAY ==
[2020-07-06 12:37] VITALS: BP 119/83; PULSE 92; RESP 18; TEMP 36.2; O2SAT 98
[2020-07-06] MEDS: Lactated Ringers 1,000 ML 80 ML IV (12:50)
--- NOTE | 2020-07-06 12:53 | W.ANESPRE ---
General Info Date of Service Date Performed: 07/06/20 Height: 5 ft 7 in Weight: 102.5 kg Body Mass Index (BMI): 35.4 Surgical Procedure: Operation Date: 07/06/20 12:20 Proposed Procedures Side Surgeon jessica Hernandez, Meds Allergies and Home Medications Allergies Allergy/AdvReac Type Severity Reaction Status Date / Time tamsulosin [From Flomax] Allergy light Verified 07/06/20 12:31 headed/dizzy prednisone AdvReac Intermediate It makes Verified 07/06/20 12:31 me feel weird codeine AdvReac Mild Nausea Verified 07/06/20 12:31 morphine AdvReac Mild Nausea Verified 07/06/20 12:31 tramadol HCl [From Ultram] AdvReac Mild Nausea Verified 07/06/20 12:31 tegaderm tape AdvReac Intermediate ariza my Uncoded 07/06/20 12:31 skin Home Medication Medication Instructions Recorded naloxone 4 mg/actuation nasal spray 1 spray LOGAN ONCE PRN 04/19/18 alprazolam [Xanax] 1 mg PO BID 07/17/18 verapamil 120 mg tablet,extended 240 mg PO DAILY tab 09/21/19 release metoprolol succinate 100 mg 100 mg PO DAILY #30 tab 11/04/19 tablet,extended release 24 hr spironolactone 25 mg tablet 25 mg PO BID #60 tab 11/04/19 fluticasone propionate 110 1 puff IH BID 11/10/19 mcg/actuation HFA aerosol inhaler chlorthalidone 25 mg tablet 25 mg PO DAILY #30 tab 11/29/19 enalapril maleate 10 mg tablet 10 mg PO DAILY #60 tab 11/29/19 amitriptyline 25 mg tablet 25 mg PO DAILY 04/18/20 lamotrigine 100 mg tablet 100 mg PO DAILY 04/18/20 oxycodone 10 mg tablet 10 mg PO Q6H PRN 04/18/20 albuterol sulfate [ProAir HFA] 2 puff INHALATION PRN PRN 05/14/20 pantoprazole 40 mg PO DAILY 05/14/20 zolpidem 12.5 mg PO HS 05/14/20 cholestyramine-aspartame 4 gram 1 pwd PO DAILY #239.4 g 06/21/20 oral powder fluticasone propionate 44 2 puff INHALATION BID 06/21/20 mcg/actuation HFA aerosol inhaler ibuprofen 600 mg tablet 600 mg PO Q6H PRN 06/21/20 ondansetron HCl 4 mg tablet 4 mg PO Q8H 06/21/20 bisacodyl 5 mg tablet,delayed 5 mg PO ONCE #4 tab 06/22/20 release polyethylene glycol 3350 17 17 g PO ONCE #238 g 06/22/20 gram/dose oral powder Current Visit Medications: Current Medications Generic Name Dose Route Start Last Admin Trade Name Freq PRN Reason Stop Dose Admin Ringer's Solution 1,000 mls @ 80 mls/hr 07/06/20 06:00 IV 08/04/20 23:59 INFUSION JUAN IV Miscellaneous Supplies 1 each 07/06/20 06:00 Iv Access IV 08/04/20 23:59 DIRECTED JUAN Sodium Chloride 0 ml 07/06/20 06:00 Normal Saline Flush 10 Ml Syr IV 08/04/20 23:59 PRN PRN Sodium Chloride 0 ml 07/06/20 06:00 Normal Saline 10 Ml Vial IJ 08/04/20 23:59 DIRECTED PRN Sterile Water 0 ml 07/06/20 06:00 Water,Injection,Sterile 10 Ml Vial IJ 08/04/20 23:59 DIRECTED PRN PFSH Active Problems Active Problems: Problem Status Onset Code Right ureteral stone N20.1 Median nerve compression in left forearm G56.02 Medication management Z79.899 Carpal tunnel syndrome, left G56.02 Abdominal pain R10.9 Constipation K59.00 Bipolar 1 disorder F31.9 Borderline personality disorder F60.3 Psychophysiologic disorder F45.9 PTSD (post-traumatic stress disorder) F43.10 ANN (obstructive sleep apnea) G47.33 IBS (irritable bowel syndrome) K58.9 Seizure disorder G40.909 Chronic GERD K21.9 Elevated fasting blood sugar R73.01 Acute diarrhea R19.7 Essential hypertension I10 Chronic pain G89.29 Bilateral kidney stones N20.0 Headache, chronic migraine without aura G43.709 Chronic headache R51 Medication overuse headache G44.40 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 denies this Chronic headache Chronic insomnia Chronic pain Chronic wrist pain Cold sore Conversion disorder tremor, stutter, weakness CVA tenderness Depression with anxiety Dizziness Essential hypertension Essential tremor Gastritis Headache, chronic migraine without aura Carcamo sign present Hydronephrosis Kidney stones Knee pain Left-sided thoracic back pain Medication overuse headache Memory loss Migraines Neuralgia Numbness and tingling Psychogenic tremor Rectal bleeding Right arm weakness Upper respiratory infection pt. denies this Ureteral calculi Surgical History Surgical History History of carpal tunnel surgery of left wrist Repair of umbilical hernia S/P appendectomy S/P cholecystectomy S/P knee surgery Tobacco Smoking/Tobacco Use Status: Current every day Alcohol Alcohol Intake: never Substance Use Substance use: Never Substance use type: does not use Vital Signs and Lab Results Vital Signs Most Recent Vital Signs in EMR: Most Recent Vital Signs Temp Pulse Resp BP Pulse Ox 36.2 C L 92 H 18 119/83 98 07/06/20 12:37 07/06/20 12:37 07/06/20 12:37 07/06/20 12:37 07/06/20 12:37 Lab Results Blood Type / Crossmatch: No Data to Display Complete Blood Count: White Blood Count 13.48 10^3/uL (4.4-10.8) H 06/21/20 15:25 06/21/20 Red Blood Count 4.49 10^6/uL (3.93-5.22) 06/21/20 15:25 06/21/20 Hemoglobin 14.3 g/dL (11.2-15.7) 06/21/20 15:25 06/21/20 Hematocrit 43.5 % (36.0-46.0) 06/21/20 15:25 06/21/20 Platelet Count 394 10^3/uL (130-400) 06/21/20 15:25 06/21/20 Complete Metabolic Panel: Sodium Level 136 mmol/L (136-145) 05/14/20 10:56 05/14/20 Potassium Level 4.2 mmol/L (3.5-5.1) 05/14/20 10:56 05/14/20 Chloride Level 102 mmol/L (98-107) 05/14/20 10:56 05/14/20 Carbon Dioxide Level 21.4 mmol/L (21.0-32.0) 05/14/20 10:56 05/14/20 Blood Urea Nitrogen 17 mg/dL (7-18) 05/14/20 10:56 05/14/20 Creatinine 1.6 mg/dL (0.55-1.02) H 05/14/20 10:56 05/14/20 Magnesium Level 1.7 mg/dL (1.8-2.4) L 05/14/20 10:56 05/14/20 Calcium Level 8.7 mg/dL (8.5-10.1) 05/14/20 10:56 05/14/20 Albumin 3.3 g/dL (3.4-5.0) L 05/14/20 10:56 05/14/20 Glucose Level 133 mg/dL (74-106) H 05/14/20 10:56 05/14/20 Hemoglobin A1c 6.5 % (<5.7) H 06/21/20 15:25 06/21/20 C-Reactive Protein 2.34 mg/dL (0.0-0.3) H 06/21/20 15:25 06/21/20 Liver Function Panel: Alanine Aminotransferase (ALT/SGPT) 30 U/L (14-59) 05/14/20 10:56 05/14/20 Aspartate Amino Transf (AST/SGOT) 19 U/L (15-37) 05/14/20 10:56 05/14/20 Coagulation Panel: No Data to Display Cardiac Panel: Troponin I < 0.05 ng/mL (<0.06) 09/17/19 01:28 09/17/19 Arterial Blood Gas: No Data to Display Venous Blood Gas: No Data to Display Pancreas Panel: Lipase 146 U/L (73-393) 05/14/20 10:56 05/14/20 Thyroid Panel: Thyroid Stimulating Hormone (TSH) 1.82 uIU/mL (0.36-3.74) 06/21/20 15:25 06/21/20 Infectious Disease: Coronavirus (COVID-19)(PCR) Negative (Negative) 07/04/20 09:18 07/04/20 Coronavirus 2019 Source Nasal/nares 07/04/20 09:18 07/04/20 Blood Cultures: No Data to Display Toxicology Panel: Urine Amphetamines Screen Negative (Negative) 04/12/18 20:10 04/12/18 Urine Benzodiazepines Screen Negative (Negative) 04/12/18 20:10 04/12/18 Urine Barbiturates Screen Negative (Negative) 04/12/18 20:10 04/12/18 Urine Cocaine Screen Negative (Negative) 04/12/18 20:10 04/12/18 Urine Methadone Screen Negative (Negative) 04/12/18 20:10 04/12/18 Urine Opiates Screen Positive (Negative) 04/12/18 20:10 04/12/18 Ur Tricyclic Antidepressants Screen Positive (Negative) 04/12/18 20:10 04/12/18 Ur Tetrahydrocannabinol (THC) Scrn Negative (Negative) 04/12/18 20:10 04/12/18 Panel: No Data to Display Anesthesia Assessment and Plan Anesthesia History Personal History: No History of Anesthesia Complications Family History: No Family History of Anesthesia Complications Exercise Tolerance Exercise Tolerance: Metabolic Equivalents>4 Pertinent Negatives Pertinent Negatives: No Symptoms of GERD and No History of CVA/TIA Cardiac & Pulmonary Exam Cardiac Exam: Normal S1/S2 Heart Sounds Pulmonary Exam: Clear Bilateral Breath Sounds Airway Exam Known Difficult Airway: No Mallampati Class: 3 Mouth Opening: Normal (> 3cm) Thyromental Distance: Greater than 3 cm Neck Range of Motion: Full ROM Neck Circumference: Normal Teeth Condition: Normal Dentition Airway Comment:: #13 broken ASA Classification ASA Score: ASA 2 ASA Emergency: No NPO Status NPO Status: NPO Clears >2 hours, Solids >8 hours Status Status: Negative HCG Anesthesia Plan Anesthesia Technique: General Anesthesia Airway Planned: Natural Airway Monitors Used: Standard Monitors
[2020-07-06 12:59] VITALS: BMI 35.4
--- NOTE | 2020-07-06 13:32 | BOWEL_PTH ---
PATIENT: Shalini Jhaveri LOC: [facility] U#:[id number] AGE/SX: 40/F ROOM: RE07/06/[address]: Danii Hernandez : 1980 BED: DIS: 07/06/2020 SPEC #: [id number] RECD: 07/06/20 16:14 STATUS: [facility] #: [id number] PAT: 07/06/20 13:[address]: Danii Hernandez DEPT: Surgical Specimen RECD BY: Stefania Costello ENTERED: 07/06/20 16:15 SP TYPE: Bowel OTHR DR: Elizabeth Benton Tissues: 1 - BIOPSY BOWEL 2 - BIOPSY BOWEL 3 - BIOPSY BOWEL 4 - BIOPSY BOWEL Procedures: GROSS AND MICRO LEVEL 4 Comments: [id number]
--- NOTE | 2020-07-06 13:42 | PDOC.DSDIS_ITS ---
Discharge Plan Disposition Patient Disposition: HOME Condition: Good Discharge Details Reason For Visit: colon scope Attending Provider: Danii Hernandez Primary Care Provider: Elizabeth Benton Home Meds and New Rx's Prescriptions: Continued Flovent HFA 110 mcg/actuation HFA aerosol inhaler 1 puff IH BID RF: 0 metoprolol succinate 100 mg tablet extended release 24 hr 100 mg PO DAILY Qty: 30 RF: 12 spironolactone 25 mg tablet 25 mg PO BID Qty: 60 RF: 12 amitriptyline 25 mg tablet 25 mg PO DAILY RF: 0 oxycodone 10 mg tablet 10 mg PO Q6H PRNRF: 0 lamotrigine 100 mg tablet 100 mg PO DAILY RF: 0 Cholestyramine Light 4 gram powder 1 pwd PO DAILY Qty: 239.4 RF: 3 verapamil 120 mg tablet extended release 240 mg PO DAILY RF: 0 enalapril maleate 10 mg tablet 10 mg PO DAILY Qty: 60 RF: 8 chlorthalidone 25 mg tablet 25 mg PO DAILY Qty: 30 RF: 6 Narcan 4 mg/actuation spray,non-aerosol 1 spray LOGAN ONCE PRNRF: 0 Flovent HFA 44 mcg/actuation HFA aerosol inhaler 2 puff inhalation BID RF: 0 ibuprofen 600 mg tablet 600 mg PO Q6H PRNRF: 0 ondansetron HCl 4 mg tablet 4 mg PO Q8H RF: 0 alprazolam [Xanax] 1 mg Tablet 1 mg PO BID RF: 0 pantoprazole 40 mg tablet,delayed release (DR/EC) 40 mg PO DAILY RF: 0 albuterol sulfate [ProAir HFA] 90 mcg/actuation HFA aerosol inhaler 2 puff INHALATION PRN PRNRF: 0 zolpidem 12.5 mg tablet,ext release multiphase 12.5 mg PO HS RF: 0 Discontinued bisacodyl [Dulcolax (bisacodyl)] 5 mg tablet,delayed release (DR/EC) 5 mg PO ONCE Qty: 4 RF: 0 polyethylene glycol 3350 17 gram/dose powder 17 g PO ONCE Qty: 238 RF: 0 Discharge Instructions Additional Instructions: DSU Colonoscopy Post- Op Instructions Instructions for Everyone who is given Anesthesia: For your safety, please do the following for the next twenty-four (24) hours: *Do Not operate a motor vehicle (car, truck, motorcycle, etc.) *Do Not drink alcoholic beverages or use any recreational drugs for the first 24 hours or while taking pain medications. The medications in your body may have a reaction that can be dangerous. *Do Not make any important decisions or sign any important papers. Findings: normal colon. probable IBS Follow up:2-3 wks 1. No lifting over 20 pounds or strenuous activity for the first 24 hours after your procedure. After 24 hours there are no restrictions on your activity but you may feel fatigued for a few days. 2. After you arrive home you may have a light meal and return to your normal diet as you can tolerate it without feeling sick to your stomach. 3. You may have a bloated, gaseous feeling in your belly (abdomen) after a colonoscopy. Passing gas and belching will help. Walking or lying down on your left side with your knees flexed may relieve the discomfort. Call the office at [phone] (Office) or [phone] (Hospital) right away if you notice any of the following: a.Vomiting of blood or ?coffee ground stools?. b.Rectal bleeding 1Tbsp, blood clots or continuous bleeding. c.Severe belly (abdominal) pain. d.A hard distended belly (abdomen) and an inability to pass gas. 4. Please don?t expect to have a normal BM (bowel movement) for 2-3 days after your procedure. 5. If there are questions regarding the findings of your procedure, please contact your doctor 6. If you are unable to contact your doctor with a problem, contact the hospital at [phone]. 7. Continue all your regular medications unless directed otherwise. I understand the above instructions and have no questions. Signature of Patient or Adult Escort Name of Responsible Adult Escort Signature of Nurse Date/Time Activity:: see above Diet:: see above Discharge Orders Discharge Orders: Discharge Order (Routine); Ordered 07/06/20 Ordered By: Danii Hernandez DS: Diagnosis Discharge Diagnosis (1) Abdominal pain: Status: Acute (2) IBS (irritable bowel syndrome): Status: Chronic (3) Acute diarrhea: Status: Acute (4) Chronic pain: Status: Chronic
--- NOTE | 2020-07-06 13:46 | COLE_ITS ---
Date of service: 07/06/20 Time of Service: 13:47 Colonoscopy Report Date of procedure: 07/06/20 Pre-op diagnosis general: Abdominal pain alternating constipation and diarrhea Post-op diagnosis procedure note: same Procedure: Biopsy with cold biopsy forcep Anesthesia Type: General:No Airway Estimated blood loss (mL): 0 Pathology: other Complications: None Disposition: same day Prep: Miralax/Dulcolax Retraction Time: 10 mins Procedure Description: After informed consent was obtained the patient was taken to the procedure room and placed in a left decubitous position. Monitors were applied and a time out was done. The patients name, date of , procedure, allergies to medications and metal in their body was reviewed. The patient was then sedated. Once sedated and comfortable a rectal exam was done. External shows external hemorrhoids and tags internal exam revealed a normal sphincter tone and no palpable masses. The scope was then introduced and retrofelexed. Grade 1 internal hemorrhoids were identified. The scope was then advanced to the cecum with adequate difficulty. The TI and appendiceal orifice were identified. The prep was . The scope was then slowly retracted over 10 minutes back into the rectum. There are no polyps, AVMs, diverticula. The mucosa appears pink and healthy. There are no other abnormalities. Biopsies are taken at 80 cm 60 cm 30 cm in the rec keyla. All specimens are retrieved and no bleeding is noted. The scope was removed and the patient was woken up and taken back to Same day surgery in stable condition. The patient tolerated the procedure well and there were no immediate complications. Follow up: The patient should follow up in 10y ears unless they develop changes in bowel habits or other new gastrointestinal complaints.
[2020-07-06 13:50] VITALS: BP 101/66; PULSE 75; RESP 18; TEMP 36.3; O2SAT 95
--- NOTE | 2020-07-06 13:54 | W.ANESPOSTOP ---
Postoperative Evaluation Date, Time and Location Date Performed: 07/06/20 Time Performed: 13:55 Patient Location: Day Surgery Unit Vital Signs Most Recent Imported Vital Signs: Most Recent Vital Signs Temp Pulse Resp BP Pulse Ox 36.3 C L 75 18 101/66 95 07/06/20 13:50 07/06/20 13:50 07/06/20 13:50 07/06/20 13:50 07/06/20 13:50 Pain Score Most Recent Pain Score: Most Recent Pain Score Pain Level 0 07/06/20 13:50 Assessment Mental Status: Awake (Alert & Oriented to Patient Baseline) Airway and Respiratory Function: Patent airway with normal (patient baseline) respiratory exam Cardiovascular Function: Hemodynamically Stable Hydration Status: Adequately Hydrated Nausea & Vomiting: No Nausea or Vomiting Pain: Pt. Denies Any Pain Peripheral Nerve Block: Patient did not receive a nerve block Teaching Patient Teaching: Discussed Safe Use of Pain Medication Given Likely or Known ANN
[2020-07-06 14:20] VITALS: BP 118/81; PULSE 67; RESP 16; TEMP 36.4; O2SAT 99
== END 2020-07-06 15:05 | disposition home or self-care (01) ==
PROVIDERS: PCP Physician Assistant Medical; Visit Provider Surgery
PROC: 0DJD8ZZ Inspection of Lower Intestinal Tract, Via Natural or Artificial Opening Endoscopic (ICD-10-PCS; CPT 45378; principal; 2020-07-06 12:15)
DX: R19.7 Diarrhea, unspecified (principal); K59.00 Constipation, unspecified; I10 Essential (primary) hypertension; K21.9 Gastro-esophageal reflux disease without esophagitis; R10.9 Unspecified abdominal pain; K64.0 First degree hemorrhoids
CPT/HCPCS: 45380; 81025; 88305

== ENCOUNTER 2020-08-07 15:25 | Outpatient (CLI) | payer MEDICAID, SELFPAY ==
--- NOTE | 2020-08-07 15:42 | DI.RAD_ITS ---
Exam(s) XR ABDOMEN FLAT PLATE EXAM: XR ABDOMEN FLAT PLATE CLINICAL HISTORY: left flank pain z87.442 history of urinary calculi TECHNIQUE: COMPARISON: CR ABDOMEN 2 VIEW FLAT, UPRIGHT from 01/31/2015 FINDINGS: Three views were obtained. There are multiple vascular clips in the right upper quadrant. Bowel gas pattern is unremarkable. No definite urinary tract calcifications seen. IMPRESSION: RADIATION DOSE DELIVERED: Total DLP
== END 2020-08-07 15:45 ==
PROVIDERS: PCP Physician Assistant Medical; Visit Provider Nurse Practitioner Gerontology
DX: R10.32 Left lower quadrant pain (principal); Z87.442 Personal history of urinary calculi
CPT/HCPCS: 74018

== ENCOUNTER 2020-08-10 03:20 | Outpatient (CLI) | payer MEDICAID, SELFPAY ==
--- NOTE | 2020-08-10 07:15 | DI.US_ITS ---
Exam(s) US RENAL EXAM: US RENAL CLINICAL HISTORY: hx of kidney stones; current b/l flank pain,R10.9,N20.0. TECHNIQUE: Williamson scale, color and spectral Doppler were used. COMPARISON: US US RENAL from 05/28/2020 FINDINGS: Renal size in cm: Right: 11.3. Left: 10.6. Echogenicity: Normal. Hydronephrosis: No. Cyst or mass: No. Nephrolithiasis: No. Other findings: None. Bladder:Normal. Ureteral jets: Right: Visualized and unremarkable. Left: Visualized and unremarkable. Prevoid vol:183 cc Postvoid vol:0 cc Renal color flow: Symmetric and within normal limits. IMPRESSION: 1. Unremarkable examination. 2. No evidence of nephrolithiasis or hydronephrosis. DATA REPOSITORY:
== END 2020-08-10 03:40 ==
PROVIDERS: PCP Physician Assistant Medical; Visit Provider Nurse Practitioner Gerontology
DX: R10.31 Right lower quadrant pain (principal); R10.32 Left lower quadrant pain; Z87.442 Personal history of urinary calculi
CPT/HCPCS: 76770

== ENCOUNTER 2020-09-11 20:04 | Emergency (ER) | payer MEDICAID, SELFPAY ==
[2020-09-11 20:08] VITALS: BP 112/80; PULSE 104; RESP 20; TEMP 36.6; O2SAT 97
--- NOTE | 2020-09-11 20:15 | DI.CT_ITS ---
Exam(s) CT RENAL COLIC WO EXAM: CT RENAL COLIC WO CLINICAL HISTORY: rt flank pain 1 wk, h/o stones. TECHNIQUE: Imaging Protocol: Axial computed tomography images with coronal and sagittal reformatted images were created and reviewed. COMPARISON: CT CT ABDOMEN PELVIS W from 05/14/2020 FINDINGS: ABDOMEN: Lung Bases: Normal where visualized. Liver: Diffuse fatty infiltration. The liver measures at least 21 cm in length. No measurable mass. Gallbladder and biliary tract: Status post cholecystectomy. No significant biliary ductal dilatation . Pancreas: Normal density, no abnormal calcifications or inflammatory process. Spleen: Normal. Kidneys: Normal size, contour and axis.No radiodense stones or obstructive uropathy. No masses seen. Mild stranding is seen around the right kidney. Adrenal glands: No mass is seen. Lymph nodes: Within normal limits. Abdominal Aorta: Abdominal portion non-dilated. PELVIS: Bladder:Symmetric distention, no gross wall thickening. Bowel: No obstruction or bowel wall thickening. No evidence of appendicitis. Peritoneal cavity: No ascites, collection or mesenteric inflammatory response. No free air. Reproductive organs: There is a 4.9 x 3.7 cm right right adnexal mass. It is predominantly low atten uation. There is an almost 2 cm soft tissue component at the medial aspect of the lesion. Bones: Within normal limits. Soft Tissues: Within normal limits. IMPRESSION: 1. No evidence of nephrolithiasis or hydronephrosis. 2. Mild soft tissue stranding around the right kidney. This may reflect a recently passed stone or a n inflammatory process. Please correlate clinically. 3. 4.9 cm complex right adnexal lesion which may be ovarian in origin. Pelvic ultrasound is recommen ded. A complex hemorrhagic cyst or neoplasm should be considered in the differential. 4. Hepatomegaly and hepatic steatosis. RADIATION DOSE DELIVERED: 1,246.53mGy.cm Total DLP DATA REPOSITORY: All CT scans at this facility are submitted to the National Radiology Data Registry (NRDR) Dose Index Registry (DIR) with the [employer] (A[employer]). RADIATION OPTIMIZATION: All CT scans at this facility use at least one of these dose optimization te chniques: automated exposure control; mA and/or kV adjustment per patient size (includes targeted exa ms where dose is matched to clinical indication); or iterative reconstruction.
[2020-09-11 20:28] LABS: Bilirubin Negative (Negative); Blood Small (Negative); Clarity Sl Cloudy (Clear); Glucose Negative (Negative); Ketones Negative (Negative); Leukocyte Esterase Trace (Negative); Nitrite Negative (Negative); Specific Gravity 1.025 (1.005-1.025); Urobilinogen 0.2 EU/dL (Up TO 0.2); pH 5.5 (5-8)
[2020-09-11 20:40] LABS: Bacteria Few HPF (Negative); C & S Indicated? No/Sq. Contamination; Casts 5-10 Hyaline LPF (Negative); Crystals Negative HPF (Negative); Epithelial Cells Many HPF (Negative); Mucus Negative (Negative); RBC 0-2 HPF (0-2)
[2020-09-11] MEDS: Ketorolac 30 MG/ML VIAL IVP (21:09)
[2020-09-11 21:16] LABS: Absolute Basophil Count 0.06 10^3/uL (0.0-0.2); Absolute Lymphocyte Count 3.03 10^3/uL (1.2-3.4); Absolute Monocyte Count 0.85 10^3/uL (0.1-0.8); Absolute Neutrophil Count 10.49 10^3/uL (1.2-6.7); Basophils % 0.4; Eosinophils % 2.7; HCT 40.8 % (36.0-46.0); HGB 13.3 g/dL (11.2-15.7); Immature Grans % 0.7; Lymphocytes % 20.3; MCH 31.6 pg (27.0-33.0); MCHC 32.6 % (32.0-36.0); MCV 96.9 fL (80-95); MPV 9.4 fL (8.0-11.0); Monocytes % 5.7; Neutrophils % 70.2; Nucleated RBC 0 %; Platelet Count 293 10^3/uL (130-400); RBC 4.21 10^6/uL (3.93-5.22); RDW 12.7 % (11.7-14.6); RDW-SD 45.3 fL; WBC 14.95 10^3/uL (4.4-10.8)
--- NOTE | 2020-09-11 21:21 | ED.GENADUL_ITS ---
Discharge Plan Disposition Patient Disposition: HOME Condition: Stable Discharge Details Clinical Impression: Adnexal mass Primary Care Provider: Elizabeth Benton ED Provider: Gilberto Berg Home Meds and New Rx's Prescriptions: Continued metoprolol succinate 100 mg tablet extended release 24 hr 100 mg PO DAILY Qty: 30 RF: 12 spironolactone 25 mg tablet 25 mg PO BID Qty: 60 RF: 12 amitriptyline 25 mg tablet 25 mg PO DAILY RF: 0 oxycodone 10 mg tablet 10 mg PO Q6H PRNRF: 0 lamotrigine 100 mg tablet 100 mg PO DAILY RF: 0 verapamil 120 mg tablet extended release 240 mg PO DAILY RF: 0 enalapril maleate 10 mg tablet 10 mg PO DAILY Qty: 60 RF: 8 Cholestyramine Light 4 gram powder 1 pwd PO DAILY Qty: 239.4 RF: 3 Narcan 4 mg/actuation spray,non-aerosol 1 spray LOGAN ONCE PRNRF: 0 Flovent HFA 44 mcg/actuation HFA aerosol inhaler 2 puff inhalation BID RF: 0 ibuprofen 600 mg tablet 600 mg PO Q6H PRNRF: 0 ondansetron HCl 4 mg tablet 4 mg PO Q8H RF: 0 chlorthalidone 25 mg tablet 25 mg PO DAILY Qty: 30 RF: 6 alprazolam [Xanax] 1 mg Tablet 1 mg PO BID RF: 0 pantoprazole 40 mg tablet,delayed release (DR/EC) 40 mg PO DAILY RF: 0 albuterol sulfate [ProAir HFA] 90 mcg/actuation HFA aerosol inhaler 2 puff INHALATION PRN PRNRF: 0 zolpidem 12.5 mg tablet,ext release multiphase 12.5 mg PO HS RF: 0 Discharge Instructions Additional Instructions: CT scan of your abdomen pelvis demonstrated a complex right adnexal mass measuring 4.8 x 3.8 cm. Further evaluation with pelvic ultrasound is recommended. Please call your principal trainer tomorrow to review results and request further outpatient diagnostic. Please contact your primary care physician to arrange follow-up. Return to the ER for any worsening or new concerning symptoms. Referrals: [facility] [Provider Group] Elizabeth Benton [Primary Care Provider] - Medical Decision Making 2125?- 40-year-old female with prior history of nephrolithiasis, status post cholecystectomy and appendectomy, here with right sided abdominal pain that feels like prior ureteral colic. Patient is tender right mid to lateral abdomen. No peritoneal findings. Urinalysis does have trace RBCs. We will obtain CT of the abdomen pelvis to assess for acute surgical pathology including impacted ureteral stone. I will give Toradol 30 mg IV. Patient to provide informed consent for treatment with Toradol. 2156--CT the abdomen pelvis was interpreted by radiology: IMPRESSION: 1. No evidence of obstructing renal stone or acute abdominal/pelvic process. 2. Complex right adnexal mass measuring 4.8 x 3.8 cm. Differential diagnosis includes a hemorrhagic cyst versus neoplastic cystic lesion. Further evaluation with pelvic ultrasound is recommended. 3. Hepatomegaly and hepatic steatosis. Labs reviewed and nondiagnostic. Leukocytosis is noted. Patient has had chronic diarrhea and is being worked up by general surgery. Results were reviewed with the patient. Plan for discharge with close outpatient follow-up. I will refer to gynecology. Patient will need outpatient pelvic ultrasound. Usual customary discharge instructions were reviewed with the patient. HPI General Mode of arrival: ambulatory . Date/Time Provider Initiated Documentation: 09/11/20 20:16 . Limitations to Documentation: no limitations . Information obtained by: patient . HPI Narrative: 40-year-old female has history of prior large nephrolithiasis requiring extraction on the left, bipolar disorder, complex regional pain syndrome, status post cholecystectomy, status post appendectomy, presents with chief complaint of abdominal pain. Patient notes right mid and lateral abdominal pain radiating to her right flank over the past 1 week. Pain is moderate to severe and feels like prior kidney stone. Pain is described as a burning sensation. She denies associated dysuria or hematuria. Patient states she passed a kidney stone in July and had subsequent x-ray and ultrasound that were negative. She recently had her menstrual cycle and denies vaginal discharge or vaginal pain. No lower abdominal or pelvic pain. She does state she has had fairly persistent diarrhea and is being followed up by general surgery here. Patient does note that she recently passed a white clumps that looks like a partially dissolved pill. She does note that she took a dose of Tylenol earlier that day. She denies associated fever. Related Data Home Medications Medication Instructions Recorded Confirmed naloxone 4 mg/actuation nasal spray 1 spray LOGAN ONCE PRN 04/19/18 09/11/20 alprazolam [Xanax] 1 mg PO BID 07/17/18 09/11/20 verapamil 120 mg tablet,extended 240 mg PO DAILY tab 09/21/19 09/11/20 release metoprolol succinate 100 mg 100 mg PO DAILY #30 tab 11/04/19 09/11/20 tablet,extended release 24 hr spironolactone 25 mg tablet 25 mg PO BID #60 tab 11/04/19 09/11/20 enalapril maleate 10 mg tablet 10 mg PO DAILY #60 tab 11/29/19 09/11/20 amitriptyline 25 mg tablet 25 mg PO DAILY 04/18/20 09/11/20 lamotrigine 100 mg tablet 100 mg PO DAILY 04/18/20 09/11/20 oxycodone 10 mg tablet 10 mg PO Q6H PRN 04/18/20 09/11/20 albuterol sulfate [ProAir HFA] 2 puff INHALATION PRN PRN 05/14/20 09/11/20 pantoprazole 40 mg PO DAILY 05/14/20 09/11/20 zolpidem 12.5 mg PO HS 05/14/20 09/11/20 fluticasone propionate 44 2 puff INHALATION BID 06/21/20 09/11/20 mcg/actuation HFA aerosol inhaler ibuprofen 600 mg tablet 600 mg PO Q6H PRN 06/21/20 09/11/20 ondansetron HCl 4 mg tablet 4 mg PO Q8H 06/21/20 09/11/20 chlorthalidone 25 mg tablet 25 mg PO DAILY #30 tab 07/12/20 09/11/20 cholestyramine-aspartame 4 gram 1 pwd PO DAILY #239.4 g 07/26/20 08/07/20 oral powder Previous Rx's Medication Instructions Recorded metoprolol succinate 100 mg 100 mg PO DAILY #30 tab 11/04/19 tablet,extended release 24 hr spironolactone 25 mg tablet 25 mg PO BID #60 tab 11/04/19 enalapril maleate 10 mg tablet 10 mg PO DAILY #60 tab 11/29/19 chlorthalidone 25 mg tablet 25 mg PO DAILY #30 tab 07/12/20 cholestyramine-aspartame 4 gram 1 pwd PO DAILY #239.4 g 07/26/20 oral powder Allergies Allergy/AdvReac Type Severity Reaction Status Date / Time tamsulosin [From Flomax] Allergy light Verified 09/11/20 20:12 headed/dizzy prednisone AdvReac Intermediate It makes Verified 09/11/20 20:12 me feel weird codeine AdvReac Mild Nausea Verified 09/11/20 20:12 morphine AdvReac Mild Nausea Verified 09/11/20 20:12 tramadol HCl [From Ultram] AdvReac Mild Nausea Verified 09/11/20 20:12 tegaderm tape AdvReac Intermediate ariza my Uncoded 09/11/20 20:12 skin General Stated Complaint: FlankPain JOEL: 3 Review of Systems All systems reviewed & are unremarkable except as noted in HPI and below Constitutional Constitutional: Denies fever(s) Gastrointestinal Gastrointestinal: Reports as per HPI Genitourinary Genitourinary: Reports as per HPI [facility] Medical History Abdominal pain Active asthma ADD (attention deficit disorder) Affective bipolar disorder Amenorrhea Bilateral kidney stones Causalgia of left upper extremity Cervical disc disease Chest pain at rest pt. denies this Chronic headache Chronic insomnia Chronic pain Chronic wrist pain Cold sore Conversion disorder tremor, stutter, weakness CVA tenderness Depression with anxiety Dizziness Essential hypertension Essential tremor Gastritis Headache, chronic migraine without aura Carcamo sign present Hydronephrosis Kidney stones Knee pain Left-sided thoracic back pain Medication overuse headache Memory loss Migraines Neuralgia Numbness and tingling Psychogenic tremor Rectal bleeding Right arm weakness Upper respiratory infection pt. denies this Ureteral calculi Surgical History History of carpal tunnel surgery of left wrist Repair of umbilical hernia S/P appendectomy S/P cholecystectomy S/P knee surgery Family History Father Cerebral aneurysm Social History Smoking/Tobacco Use Status: Current every day Smoking risk assessment performed?: Yes Alcohol Intake: never Drug use: Never Substance use type: does not use Household members: significant other and children Number of Children: 1 Current gender identity: female Do you feel safe at home: Yes Do you feel safe in your relationship?: Yes Exam Const General: cooperative and no acute distress HENMT Mouth: moist mucous membranes Eyes Conjunctivae: normal conjunctivae Sclera: normal sclerae Neck Neck: trachea midline and supple Resp Auscultation: clear to auscultation bilaterally, no rales, no rhonchi and no wheezes Cardio Rate: regular rate and not tachycardic Rhythm: regular rhythm GI Palpation: soft, not firm, no guarding, no masses, not rigid and tender other (Right mid abdomen); not at McBurney's point, Hampton's sign negative and with no rebound tenderness Auscultation: normal bowel sounds Skin General skin exam: no rashes or lesions noted Neuro General: patient alert, patient awake, patient oriented x3 and tone normal Extrem General: no edema Psych Appearance: grossly normal Mental Status: mental status grossly normal Speech and Movement: speech and movement normal Course Vital Signs Vital signs: Vital Signs Temperature 36.6 C 09/11/20 20:08 Pulse 104 H 09/11/20 20:08 Respiratory Rate 20 09/11/20 20:08 Blood Pressure 112/80 09/11/20 20:08 Pulse Oximetry 97 09/11/20 20:08 Temperature 36.6 C 09/11/20 20:08 Temperature Source Skin 09/11/20 20:08 Pulse 104 H 09/11/20 20:08 Respiratory Rate 20 09/11/20 20:08 Respiratory Effort Non-Labored 09/11/20 20:24 Blood Pressure 112/80 09/11/20 20:08 Blood Pressure Position Sitting 09/11/20 20:08 Pulse Oximetry 97 09/11/20 20:08 Oxygen Delivery Method Room Air 09/11/20 20:08 Oxygen Flow Rate 0 09/11/20 20:08 Pain Level 8 09/11/20 21:09 Lab/Test Results Lab/Test Results: Laboratory Tests Range/Units 09/11/20 09/11/20 20:20 21:10 WBC (4.4-10.8) 10^3/uL 14.95 H RBC (3.93-5.22) 10^6/uL 4.21 Hgb (11.2-15.7) g/dL 13.3 Hct (36.0-46.0) % 40.8 MCV (80-95) fL 96.9 H MCH (27.0-33.0) pg 31.6 MCHC (32.0-36.0) % 32.6 RDW (11.7-14.6) % 12.7 Plt Count (130-400) 10^3/uL 293 MPV (8.0-11.0) fL 9.4 Immature Gran % 0.7 Neutrophils % 70.2 Lymphocytes % 20.3 Monocytes % 5.7 Eosinophils % 2.7 Basophils % 0.4 Nucleated RBC % % 0 Absolute Neutrophils (1.2-6.7) 10^3/uL 10.49 H Absolute Lymphocytes (1.2-3.4) 10^3/uL 3.03 Absolute Monocytes (0.1-0.8) 10^3/uL 0.85 H Absolute Eosinophils (0.0-0.7) 10^3/uL 0.40 Absolute Basophils (0.0-0.2) 10^3/uL 0.06 Urine Color (Yellow) Yellow Urine Clarity (Clear) Sl Cloudy Urine pH (5-8) 5.5 Ur Specific [place] (1.005-1.025) 1.025 Urine Protein (Negative) mg/dL Negative Urine Ketones (Negative) mg/dL Negative Urine Blood (Negative) Small H Urine Nitrite (Negative) Negative Urine Bilirubin (Negative) Negative Urine Urobilinogen (Up TO 0.2) EU/dL 0.2 Ur Leukocyte Esterase (Negative) Trace H Urine RBC (0-2) HPF 0-2 Urine WBC (0-5) HPF 3-5 Ur Epithelial Cells (Negative) HPF Many Urine Crystals (Negative) HPF Negative Urine Bacteria (Negative) HPF Few Urine Casts (Negative) LPF 5-10 Hyaline Urine Mucus (Negative) Negative Ur Culture Indicated? No/Sq. Contamination Urine Glucose (Negative) mg/dL Negative POC- Test(urine) Negative
[2020-09-11 21:30] LABS: ALT 45 U/L (14-59); AST 33 U/L (15-37); Albumin 3.3 g/dL (3.4-5.0); Alkaline Phosphatase 105 U/L (46-116); Anion Gap 13.6 mmol/L (3-11); BUN 17 mg/dL (7-18); Bilirubin, Total 0.2 mg/dL (0.2-1.0); CO2 23.4 mmol/L (21.0-32.0); CREATININE 1.6 mg/dL (0.55-1.02); Calcium 8.9 mg/dL (8.5-10.1); Chloride 102 mmol/L (98-107); Estimated GFR 35.35 (mL/min/1.73m2); Glucose 120 mg/dL (74-106); Lipase 186 U/L (73-393); Potassium 4.6 mmol/L (3.5-5.1); Sodium 139 mmol/L (136-145); Total Protein 7.7 g/dL (6.4-8.2)
--- NOTE | 2020-09-11 21:30 | DI.VRAD_ITS ---
PROCEDURE INFORMATION: Exam: CT Abdomen And Pelvis Without Contrast Exam date and time: 09/11/2020 8:18 PM Age: 40 years old Clinical indication: Prior surgery; Surgery date: 6+ months; Surgery type: Appendectomy, cholecysectomy; Patient HX: R flank pain for one week, HX of renal stones TECHNIQUE: Imaging protocol: Computed tomography of the abdomen and pelvis without contrast. Radiation optimization: All CT scans at this facility use at least one of these dose optimization techniques: automated exposure control; mA and/or kV adjustment per patient size (includes targeted exams where dose is matched to clinical indication); or iterative reconstruction. COMPARISON: CT ABDOMEN PELVIS W 05/14/2020 1:07 PM FINDINGS: Liver: The liver is enlarged and demonstrates diffuse hypoattenuation. Gallbladder and bile ducts: Status post cholecystectomy. Pancreas: Normal. No ductal dilation. Spleen: Normal. No splenomegaly. Adrenal glands: Normal. No mass. Kidneys and ureters: Normal. No hydronephrosis. Stomach and bowel: Unremarkable. No obstruction. No mucosal thickening. Appendix: Status post appendectomy. Intraperitoneal space: Unremarkable. No free air. No significant fluid collection. Vasculature: Unremarkable. No abdominal aortic aneurysm. Lymph nodes: Unremarkable. No enlarged lymph nodes. Urinary bladder: Unremarkable as visualized. Reproductive: There is a low-attenuation cystic lesion within the right adnexa measuring 4.8 x 3.9 cm (series 2, image 111). Within the medial wall of the cystic lesion there is a hyperdense oval nodularity measuring approximately 1.8 cm. Bones/joints: Unremarkable. No acute fracture. Soft tissues: Unremarkable. IMPRESSION: 1. No evidence of obstructing renal stone or acute abdominal/pelvic process. 2. Complex right adnexal mass measuring 4.8 x 3.8 cm. Differential diagnosis includes a hemorrhagic cyst versus neoplastic cystic lesion. Further evaluation with pelvic ultrasound is recommended. 3. Hepatomegaly and hepatic steatosis. Dictated and Authenticated by: Se Delarosa MD. Ordering:CARMEL Macias MD
[2020-09-11 22:07] VITALS: BP 104/77; PULSE 75; RESP 16; TEMP 36.6; O2SAT 97
== END 2020-09-11 22:08 | disposition home or self-care (01) ==
PROVIDERS: Emergency Provider Student in an Organized Health Care Education/Training Program; PCP Physician Assistant Medical
DX: R19.03 Right lower quadrant abdominal swelling, mass and lump (principal); R93.5 Abnormal findings on diagnostic imaging of other abdominal regions, including retroperitoneum; Z87.442 Personal history of urinary calculi
CPT/HCPCS: 36415; 80053; 81025; 83690; 96374; 99284; 74176; 81003; 81015; 85025; 99285; J1885

== ENCOUNTER 2020-09-19 17:31 | Outpatient (REF) | payer MEDICAID, SELFPAY ==
--- NOTE | 2020-09-19 16:00 | PAPFT_PTH ---
PATIENT: Shalini Jhaveri LOC: [facility] U#:[id number] AGE/SX: 40/F ROOM: RE09/19/[address]: Jen Poole : 1980 BED: DIS: 09/19/2020 SPEC #: [id number] RECD: 09/19/20 17:51 STATUS: MAKEDA HEENA #: [id number] PAT: 09/19/20 16:[address]: Jen Poole DEPT: [facility] Cytology RECD BY: Stefania Costello ENTERED: 09/19/20 17:51 SP TYPE: PAPFT OTHR DR: Elizabeth Benton Tissues: 1 - CX/ENDOCX FOR PAP SMEARS Procedures: PAP THIN PREP/UVM Screening HPV DNA PROBE Comments: [id number]
[2020-09-21 15:06] LABS: Chlamydia Result Negative (Negative); GC Result Negative (Negative)
== END 2020-09-19 17:32 | disposition home or self-care (01) ==
LOC: LBN 17:31
PROVIDERS: PCP Physician Assistant Medical; Visit Provider Obstetrics & Gynecology Gynecology
DX: R10.31 Right lower quadrant pain (principal); Z11.3 Encounter for screening for infections with a predominantly sexual mode of transmission; Z12.4 Encounter for screening for malignant neoplasm of cervix; R87.610 Atypical squamous cells of undetermined significance on cytologic smear of cervix (ASC-US); Z11.51 Encounter for screening for human papillomavirus (HPV); R87.810 Cervical high risk human papillomavirus (HPV) DNA test positive
CPT/HCPCS: 87491; 87591; 88142; 87624

== ENCOUNTER 2020-10-05 03:48 | Outpatient (CLI) | payer MEDICAID, SELFPAY ==
--- NOTE | 2020-10-05 | DI.US_ITS ---
Exam(s) US PELVIS TRANSVAGINAL EXAM: US PELVIS TRANSVAGINAL CLINICAL HISTORY: COMPLEX CYST RT OVARY,[id number]. TECHNIQUE: Transabdominal and transvaginal pelvic ultrasound was performed using standard protocol. COMPARISON: CT CT RENAL COLIC WO from 09/11/2020 FINDINGS: Examination limited by patient body habitus. KIDNEYS: Kidneys are symmetric in size. No evidence of renal calculi. No evidence of hydronephrosis. No renal mass or cyst identified. UTERUS: Position: Anteverted. Size: 7.9 long by 4.6 AP by 4.4 transverse cm Endometrium: 0.7 cm. Normal for patient's menstrual status. Myometrium: Unremarkable. Cervix: Nabothian cysts are present. OVARIES: The left ovary was not visualized transabdominally or transvaginally. No left adnexal mass is seen. Right: 4.2 x 3.3 x 3.4 cm Cyst or mass: 3.1 x 2.9 cm simple appearing cyst. Left: cm Cyst or mass: None. DOPPLER: Color: Color flow to right ovary. No hyperemia. Duplex: Normal right ovarian arterial waveforms visualized. CUL-DE-SAC: Free fluid: None. Other: None. IMPRESSION: 1. Normal sonographic appearance of the kidneys. 2. Normal-appearing uterus with endometrial stripe within normal limits. 3. Left ovary not visualized sonographically. No left adnexal mass is seen. 4. 3.1 x 2.9 cm simple appearing right ovarian cyst. This is likely a functional cyst. DATA REPOSITORY:
== END 2020-10-05 04:08 ==
PROVIDERS: PCP Physician Assistant Medical; Visit Provider Physician Assistant Medical
DX: N83.291 Other ovarian cyst, right side (principal)
CPT/HCPCS: 76830; 76856

== ENCOUNTER 2020-10-16 10:48 | Outpatient (CLI) | payer MEDICAID, SELFPAY ==
[2020-10-16 11:58] LABS: HCT 41.9 % (36.0-46.0); HGB 13.3 g/dL (11.2-15.7); MCH 31.1 pg (27.0-33.0); MCHC 31.7 % (32.0-36.0); MCV 97.9 fL (80-95); MPV 9.3 fL (8.0-11.0); Platelet Count 341 10^3/uL (130-400); RBC 4.28 10^6/uL (3.93-5.22); RDW 13.2 % (11.7-14.6); RDW-SD 47.5 fL; WBC 14.18 10^3/uL (4.4-10.8)
[2020-10-16 13:01] LABS: ALT 46 U/L (14-59); AST 29 U/L (15-37); Albumin 3.8 g/dL (3.4-5.0); Alkaline Phosphatase 103 U/L (46-116); BUN 28 mg/dL (7-18); Bilirubin, Total 0.3 mg/dL (0.2-1.0); CREATININE 1.7 mg/dL (0.55-1.02); Calcium 9.8 mg/dL (8.5-10.1); Chloride 101 mmol/L (98-107); Estimated GFR 32.96 (mL/min/1.73m2); Glucose 188 mg/dL (74-106); Potassium 4.5 mmol/L (3.5-5.1); Sodium 136 mmol/L (136-145); Total Protein 7.6 g/dL (6.4-8.2)
[2020-10-16 13:15] LABS: HCG Qual (Serum) Negative
[2020-10-16 19:09] LABS: COVID-19 RT-PCR UVMMC Result Negative (Negative)
== END 2020-10-16 10:49 | disposition home or self-care (01) ==
LOC: LBO 10:49
PROVIDERS: PCP Physician Assistant Medical; Visit Provider Obstetrics & Gynecology Gynecology
DX: R10.31 Right lower quadrant pain (principal); R19.09 Other intra-abdominal and pelvic swelling, mass and lump; Z20.822 Contact with and (suspected) exposure to COVID-19; Z01.818 Encounter for other preprocedural examination; Z01.812 Encounter for preprocedural laboratory examination
CPT/HCPCS: 36415; 80053; 85027; 86850; 86900; 86901; 87635; U0003; 84703

== ENCOUNTER 2020-10-18 11:54 | Day surgery (SDC) | payer MEDICAID, SELFPAY ==
[2020-10-18] VITALS (8 sets, daily range): BP systolic 100–121; BP diastolic 65–80; PULSE 74–96; RESP 14–18; TEMP 36–36.5; O2SAT 93–99; BMI 36.5
--- NOTE | 2020-10-18 11:56 | ANES.PREOP_ITS ---
General Info Date of Service Date Performed: 10/18/20 Height: 5 ft 7 in Weight: 105.687 kg Body Mass Index (BMI): 36.5 Surgical Procedure: Operation Date: 10/18/20 13:40 Proposed Procedures Side Surgeon p Ovarian Cystectomy Laparoscopic Right Jen Poole MD Meds Allergies and Home Medications Allergies Allergy/AdvReac Type Severity Reaction Status Date / Time tamsulosin [From Flomax] Allergy light Verified 10/18/20 12:10 headed/dizzy prednisone AdvReac Intermediate It makes Verified 10/18/20 12:10 me feel weird codeine AdvReac Mild Nausea Verified 10/18/20 12:10 morphine AdvReac Mild Nausea Verified 10/18/20 12:10 tramadol HCl [From Ultram] AdvReac Mild Nausea Verified 10/18/20 12:10 tegaderm tape AdvReac Intermediate ariza my Uncoded 10/18/20 12:10 skin Home Medication Medication Instructions Recorded naloxone 4 mg/actuation nasal spray 1 spray LOGAN ONCE PRN 04/19/18 alprazolam [Xanax] 1 mg PO BID 07/17/18 verapamil 120 mg tablet,extended 240 mg PO DAILY tab 09/21/19 release metoprolol succinate 100 mg 100 mg PO DAILY #30 tab 11/04/19 tablet,extended release 24 hr spironolactone 25 mg tablet 25 mg PO BID #60 tab 11/04/19 enalapril maleate 10 mg tablet 10 mg PO DAILY #60 tab 11/29/19 amitriptyline 25 mg tablet 25 mg PO DAILY 04/18/20 lamotrigine 100 mg tablet 100 mg PO DAILY 04/18/20 oxycodone 10 mg tablet 10 mg PO Q6H PRN 04/18/20 albuterol sulfate [ProAir HFA] 2 puff INHALATION PRN PRN 05/14/20 pantoprazole 40 mg PO DAILY 05/14/20 zolpidem 12.5 mg PO HS 05/14/20 fluticasone propionate 44 2 puff INHALATION BID 06/21/20 mcg/actuation HFA aerosol inhaler ibuprofen 600 mg tablet 600 mg PO Q6H PRN 06/21/20 chlorthalidone 25 mg tablet 25 mg PO DAILY #30 tab 07/12/20 naproxen 500 mg tablet,delayed 500 mg PO Q12H PRN #60 tab 09/19/20 release hydrocodone 10 mg-ibuprofen 200 mg 1 tab PO Q6H PRN #30 tab MDD 4 10/17/20 tablet Current Visit Medications: Current Medications Generic Name Dose Route Start Last Admin Trade Name Freq PRN Reason Stop Dose Admin Ringer's Solution 1,000 mls @ 125 mls/hr 10/18/20 06:00 IV 11/17/20 23:59 INFUSION JUAN IV Miscellaneous Supplies 1 each 10/18/20 06:00 Iv Access IV 11/17/20 23:59 DIRECTED JUAN Sodium Chloride 0 ml 10/18/20 06:00 Normal Saline Flush 10 Ml Syr IV 11/17/20 23:59 PRN PRN Sodium Chloride 0 ml 10/18/20 06:00 Normal Saline 10 Ml Vial IJ 11/17/20 23:59 DIRECTED PRN Sterile Water 0 ml 10/18/20 06:00 Water,Injection,Sterile 10 Ml Vial IJ 11/17/20 23:59 DIRECTED PRN PFSH Active Problems Active Problems: Problem Status Onset Code ASCUS with positive high risk HPV Preop examination Z01.818 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 RLQ abdominal pain R10.31 Adnexal mass N94.89 Right ureteral stone N20.1 Median nerve compression in left forearm G56.02 Medication management Z79.899 Carpal tunnel syndrome, left G56.02 Abdominal pain R10.9 Constipation K59.00 Bipolar 1 disorder F31.9 Borderline personality disorder F60.3 Psychophysiologic disorder F45.9 PTSD (post-traumatic stress disorder) F43.10 ANN (obstructive sleep apnea) G47.33 IBS (irritable bowel syndrome) K58.9 Seizure disorder G40.909 Chronic GERD K21.9 Elevated fasting blood sugar R73.01 Acute diarrhea R19.7 Essential hypertension I10 Chronic pain G89.29 Bilateral kidney stones N20.0 Headache, chronic migraine without aura G43.709 Chronic headache R51 Medication overuse headache G44.40 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 denies this Chronic headache Chronic insomnia Chronic pain Chronic wrist pain Cold sore Conversion disorder tremor, stutter, weakness CVA tenderness Depression with anxiety Dizziness Essential hypertension Essential tremor Gastritis Headache, chronic migraine without aura Carcamo sign present Hydronephrosis Kidney stones Knee pain Left-sided thoracic back pain Medication overuse headache Memory loss Migraines Neuralgia Numbness and tingling Psychogenic tremor Rectal bleeding Right arm weakness RLQ abdominal pain Upper respiratory infection pt. denies this Ureteral calculi Surgical History Surgical History History of carpal tunnel surgery of left wrist Repair of umbilical hernia S/P appendectomy S/P cholecystectomy S/P knee surgery Tobacco Smoking/Tobacco Use Status: Current every day Tobacco Type: cigarettes Smoking packs per day: 0.5 Smoking cigarettes per day: 10.0 Years smoked: 30 Smoking pack-years: 15.00 Alcohol Alcohol Intake: never Substance Use Substance use: Never Substance use type: does not use Vital Signs and Lab Results Vital Signs Most Recent Vital Signs in EMR: Temp Pulse Resp BP Pulse Ox 36.5 C 96 H 18 120/80 99 10/18/20 12:00 10/18/20 12:00 10/18/20 12:00 10/18/20 12:00 10/18/20 12:00 Lab Results Blood Type / Crossmatch: Patient ABO/Rh A Positive 10/16/20 11:50 10/16/20 Antibody Screen NEGATIVE 10/16/20 11:50 10/16/20 Complete Blood Count: White Blood Count 14.18 10^3/uL (4.4-10.8) H 10/16/20 11:50 10/16/20 Red Blood Count 4.28 10^6/uL (3.93-5.22) 10/16/20 11:50 10/16/20 Hemoglobin 13.3 g/dL (11.2-15.7) 10/16/20 11:50 10/16/20 Hematocrit 41.9 % (36.0-46.0) 10/16/20 11:50 10/16/20 Platelet Count 341 10^3/uL (130-400) 10/16/20 11:50 10/16/20 Complete Metabolic Panel: Sodium Level 136 mmol/L (136-145) 10/16/20 11:50 10/16/20 Potassium Level 4.5 mmol/L (3.5-5.1) 10/16/20 11:50 10/16/20 Chloride Level 101 mmol/L (98-107) 10/16/20 11:50 10/16/20 Carbon Dioxide Level 23.0 mmol/L (21.0-32.0) 10/16/20 11:50 10/16/20 Blood Urea Nitrogen 28 mg/dL (7-18) H 10/16/20 11:50 10/16/20 Creatinine 1.7 mg/dL (0.55-1.02) H 10/16/20 11:50 10/16/20 Estimated GFR/1.73 m2 32.96 (mL/min/1.73m2) 10/16/20 11:50 10/16/20 Calcium Level 9.8 mg/dL (8.5-10.1) 10/16/20 11:50 10/16/20 Albumin 3.8 g/dL (3.4-5.0) 10/16/20 11:50 10/16/20 Glucose Level 188 mg/dL (74-106) H 10/16/20 11:50 10/16/20 Liver Function Panel: 2 Alanine Aminotransferase (ALT/SGPT) 46 U/L (14-59) 10/16/20 11:50 10/16/20 Aspartate Amino Transf (AST/SGOT) 29 U/L (15-37) 10/16/20 11:50 10/16/20 Coagulation Panel: No Data to Display Cardiac Panel: No Data to Display Arterial Blood Gas: No Data to Display Venous Blood Gas: No Data to Display Pancreas Panel: No Data to Display Thyroid Panel: No Data to Display Infectious Disease: Coronavirus (COVID-19)(PCR) Negative (Negative) 10/16/20 11:14 10/16/20 Neisseria gonorrhoeae DNA Probe Negative (Negative) 09/19/20 16:00 09/19/20 Blood Cultures: No Data to Display Toxicology Panel: No Data to Display Panel: Serum HCG, Qualitative Negative 10/16/20 11:50 10/16/20 Imaging and Studies Imaging and Studies EKG Summary: 09/25: sinus rhythm. Anesthesia Assessment and Plan Anesthesia History Personal History: No History of Anesthesia Complications Family History: No Family History of Anesthesia Complications Exercise Tolerance Exercise Tolerance: Metabolic Equivalents>4 Cardiac & Pulmonary Exam Cardiac Exam: Normal S1/S2 Heart Sounds Pulmonary Exam: Clear Bilateral Breath Sounds Airway Exam Known Difficult Airway: No Mallampati Class: 3 Mouth Opening: Normal (> 3cm) Thyromental Distance: Greater than 3 cm Neck Range of Motion: Full ROM Neck Circumference: Normal Teeth Condition: Normal Dentition ASA Classification ASA Score: ASA 2 Emergency Case?: No NPO Status NPO Status: NPO Clears >2 hours, Solids >8 hours Status Status: Negative HCG Anesthesia Plan Resuscitation Status: Full Code Anesthesia Technique: General Anesthesia Airway Planned: Endotracheal Tube Monitors Used: Standard Monitors Preoperative Comments:: 40 yo female for cyst removal. PMHx HTN (on 5 agents), chronic neck pain (oxycodone), asthma (flovent, doesn't use rescue often). Previous LMA 4.
[2020-10-18] MEDS: Lactated Ringers 1,000 ML 125 ML IV (13:38)
[2020-10-18] MEDS: Bupivacaine 0.25% Pres-Free 30 ML VIAL (14:20)
--- NOTE | 2020-10-18 14:23 | OVAR_PTH ---
PATIENT: Shalini Jhaveri LOC: [facility] U#:[id number] AGE/SX: 40/F ROOM: RE10/18/[address]: Jen Poole : 1980 BED: DIS: 10/18/2020 SPEC #: [id number] RECD: 10/18/20 17:21 STATUS: MAKEDA RE #: [id number] PAT: 10/18/20 14:[address]: Jen Poole DEPT: Surgical Specimen RECD BY: Stefania Costello ENTERED: 10/18/20 17:22 SP TYPE: MALLIKA KELLER DR: Elizabeth Benton Tissues: 1 - OVARY BIOPSY Procedures: GROSS AND MICRO LEVEL 4 IMMUNOPEROXIDASE STAIN Comments: [id number]
--- NOTE | 2020-10-18 14:27 | W.PM.DSUDISC ---
Discharge Plan Disposition Patient Disposition: HOME Condition: Fair Discharge Details Reason For Visit: Ovarian cyst Attending Provider: Jen Poole Primary Care Provider: Elizabeth Benton Home Meds and New Rx's Prescriptions: No Action metoprolol succinate 100 mg tablet extended release 24 hr 100 mg PO DAILY Qty: 30 RF: 12 spironolactone 25 mg tablet 25 mg PO BID Qty: 60 RF: 12 amitriptyline 25 mg tablet 25 mg PO DAILY RF: 0 oxycodone 10 mg tablet 10 mg PO Q6H PRNRF: 0 lamotrigine 100 mg tablet 100 mg PO DAILY RF: 0 hydrocodone-acetaminophen 7.5-325 mg tablet 1 tab PO Q6H MDD 4 tabs PRN (Reason: pain) Qty: 30 RF: 0 verapamil 120 mg tablet extended release 240 mg PO DAILY RF: 0 enalapril maleate 10 mg tablet 10 mg PO DAILY Qty: 60 RF: 8 naproxen [EC-Naproxen] 500 mg tablet,delayed release (DR/EC) 500 mg PO Q12H PRN (Reason: pain) Qty: 60 RF: 1 Narcan 4 mg/actuation spray,non-aerosol 1 spray LOGAN ONCE PRNRF: 0 Flovent HFA 44 mcg/actuation HFA aerosol inhaler 2 puff inhalation BID RF: 0 ibuprofen 600 mg tablet 600 mg PO Q6H PRNRF: 0 chlorthalidone 25 mg tablet 25 mg PO DAILY Qty: 30 RF: 6 alprazolam [Xanax] 1 mg Tablet 1 mg PO BID RF: 0 pantoprazole 40 mg tablet,delayed release (DR/EC) 40 mg PO DAILY RF: 0 albuterol sulfate [ProAir HFA] 90 mcg/actuation HFA aerosol inhaler 2 puff INHALATION PRN PRNRF: 0 zolpidem 12.5 mg tablet,ext release multiphase 12.5 mg PO HS RF: 0 Discharge Instructions Additional Instructions: You have purple skin glue covering your incisions. Leave the skin glue on until you see Dr. Poole for postop check. You may shower today. A prescription for hydrocodone 7.5/325 mg every 6 hours has been called into your pharmacy. Do not operate a vehicle until you are pain-free. Keep your postop appoint with Dr. Poole. Stand Alone Forms: [facility] Post Gynecology Surgery Activity:: Activity as Tolerated Diet:: As Tolerated Discharge Orders Discharge Orders: Discharge Order (Routine); Ordered 10/18/20 Ordered By: Jen Poole Discharge Data Discharge Date/Time-TO BE ENTERED AT DEPARTURE: 10/18/20 16:15 DS: Diagnosis Discharge Diagnosis (1) Adnexal mass: Status: Acute (2) H/O ovarian cystectomy: Status: Acute
[2020-10-18] MEDS: HYDROmorphone 2 MG/ML VIAL IVP ×2 (14:45→14:55)
[2020-10-18] MEDS: Albuterol 2.5 MG/3 ML INH SOLN VIAL UPD (15:08)
--- NOTE | 2020-10-18 15:34 | W.ANESPOSTOP ---
Postoperative Evaluation Date, Time and Location Date Performed: 10/18/20 Time Performed: 15:35 Patient Location: PACU Vital Signs Most Recent Imported Vital Signs: Most Recent Vital Signs Temp Pulse Resp BP Pulse Ox 36.4 C L 79 14 101/65 95 10/18/20 15:25 10/18/20 15:25 10/18/20 15:25 10/18/20 15:25 10/18/20 15:25 Pain Score Most Recent Pain Score: Most Recent Pain Score Pain Level 5 10/18/20 15:25 Assessment Mental Status: Awake (Alert & Oriented to Patient Baseline) Airway and Respiratory Function: Patent airway with normal (patient baseline) respiratory exam Cardiovascular Function: Hemodynamically Stable Hydration Status: Adequately Hydrated Nausea & Vomiting: No Nausea or Vomiting Pain: Pain is tolerable per patient Peripheral Nerve Block: Patient did not receive a nerve block
--- NOTE | 2020-10-18 17:18 | W.PM.OP ---
Date of service: 10/18/20 Time of Service: 17:18 Operative Note Operative Note DATE OF PROCEDURE: 10/18/20 PRE-OP DIAGNOSIS: R adnexal mass, Right lower quadrant pain POST-OP DIAGNOSIS: same PROCEDURE: Laparoscopic right ovarian cystectomy SURGEON: Jen Poole ASSISTING SURGEON: Cassi Jackson ANESTHESIA TYPE: General LMA/ETT Refer to Anesthesia Record ESTIMATED BLOOD LOSS: 0 PATHOLOGY: other (Fragments of right ovarian cyst wall) COMPLICATIONS: None Patient was transported to: PACU Patient's condition: stable Indications: 40-year-old G4, P1 female with finding of 4 cm cyst within the right ovary at the time of a emergency department evaluation in September 2020. She presented with new onset of right lower quadrant pain and the appearance of the cyst has remained unchanged over the course of several weeks. Patient's right lower quadrant pain has persisted and the decision was made to proceed with definitive treatment. Findings: Adhesions of the uterus to the anterior cul-de-sac. Right ovary has a smooth walled cystic structure with yellow mucinous material was aspirated at the time of the removal of the cyst wall. Left ovary is normal in appearance. Left fallopian tube fimbriated end was tethered by a thin adhesion to the left pelvic sidewall. Procedure Description: Patient was taken to the operating room where she was placed in the dorsal supine position and general endotracheal anesthesia was administered without difficulty. She received 2 g of Ancef prior to skin incision. SCDs were in place. After being prepped and draped in the usual sterile fashion a surgical timeout was performed. The umbilical fold was infiltrated with quarter percent Marcaine without epinephrine. A scalpel was then used to make a 5mm vertical skin incision in the umbilical fold. Two penetrating towel clips were used to tent up the skin and through the periumbilical incision and a Veres needle was introduced into the abdomen with carbon dioxide as the distention medium. Intra-abdominal placement was confirmed by a drop in the intra-abdominal pressure. Once a pneumoperitoneum was established a 5 mm Visiport was placed under direct visualization and intra-abdominal placement confirmed by use of the laparoscope. Patient was then placed in Trendelenburg position. At two sites approximately 6 cm diagonally from the umbilical incision the skin was infiltrated with 1cc of 0.25% Marcaine without epinephrine, incised with a scalpel and two 5 mm lower ports were placed under direct visualization. After careful inspection of the pelvis above-noted findings LigaSure electrocautery device was used to grasp, cauterize, and transect the adhesion tethering the left fallopian tube to the left pelvic sidewall. The right ovary was grasped and positions so that the tip with the LigaSure device Endrate the capsule of the ovary and incise it over the cyst. The cyst was then shelled out of the body of the ovary enough to incise it and drain mucinous material within. The cyst wall was copiously irrigated with normal saline and fragments of the cyst wall grasped and delivered through the left lower port site. Cyst wall had been extracted from the right ovary the site was inspected and noted to be hemostatic. The pelvis was then copiously irrigated with normal saline which was aspirated. At the completion of the procedure the right ovary was hemostatic. Under direct visualization both lower ports were removed and the sites noted be hemostatic. Pneumoperitoneum was reduced and the 5 mm umbilical port site was removed. The skin of all port site incisions was reapproximated with a subcuticular closure of 4-0 Monocryl and covered with skin glue. The patient was then awakened, extubated, and transported recovery area in stable condition. All sponge lap needle counts correct x2.
== END 2020-10-18 16:15 | disposition home or self-care (01) ==
PROVIDERS: PCP Physician Assistant Medical; Visit Provider Obstetrics & Gynecology Gynecology
PROC: (CPT 58662; principal; 2020-10-18 13:30)
DX: D27.0 Benign neoplasm of right ovary (principal); J45.909 Unspecified asthma, uncomplicated; I10 Essential (primary) hypertension
CPT/HCPCS: 58662; 88305; 88361; J0690; J1100; J1885; J2001; J2250; J2405; J2704; J7613

== ENCOUNTER 2020-11-19 04:36 | Observation (INO) | payer MEDICAID, SELFPAY ==
[2020-11-19] VITALS (26 sets, daily range): BP systolic 111–128; BP diastolic 73–90; PULSE 78–86; RESP 16–18; TEMP 35.5–36.6; O2SAT 96–100
--- NOTE | 2020-11-19 04:45 | DI.CT_ITS ---
Exam(s) CT ABDOMEN PELVIS W EXAM: CT ABDOMEN PELVIS W CLINICAL HISTORY: lower abdominal pain, diarrhea, distension. TECHNIQUE: Imaging Protocol: Axial computed tomography images with coronal and sagittal reformatted images were created and reviewed CONTRAST MATERIAL: Intravenous: Omnipaque 350 Contrast volume:100 ml Oral: / no COMPARISON: CT CT RENAL COLIC WO from 09/11/[address] RENAL COLIC WO from 09/11/2020 FINDINGS: ABDOMEN: Lung Bases: Normal where visualized. Liver: Enlarged severe fatty infiltration.. No measurable mass. Gallbladder and biliary tract: Status post cholecystectomy. No radiodense calculus or dilation. Pancreas: Normal density, no abnormal calcifications or inflammatory process. Spleen: Normal. Kidneys: Normal size, contour and axis. No radiodense stones or obstructive uropathy. No masses seen. Adrenal glands: No masses seen. Abdominal Aorta: Abdominal portion non-dilated. Soft tissues: Small hernia, fatty containing below the level of the umbilicus. PELVIS: Bladder: No gross wall thickening. No calculi.No focal mass. Bowel: Fluid seen in colon. No obstruction. Mild wall thickening descending colon and sigmoid colon no diverticula visible.. Appendix not seen. Peritoneal cavity: No ascites, collection or mesenteric inflammatory response. Bones: Within normal limits for age. Reproductive organs: Within normal limits. Lymph nodes: Unremarkable. Impression: Mild wall thickening descending and sigmoid colon could indicate colitis. Colon is mildly fluid fill ed.. RADIATION DOSE DELIVERED: 1,246.08mGy.cm Total DLP DATA REPOSITORY: All CT scans at this facility are submitted to the National Radiology Data Registry (NRDR) Dose Index Registry (DIR) with the [employer] (A[employer]). RADIATION OPTIMIZATION: All CT scans at this facility use at least one of these dose optimization te chniques: automated exposure control; mA and/or kV adjustment per patient size (includes targeted exa ms where dose is matched to clinical indication); or iterative reconstruction.
--- NOTE | 2020-11-19 04:55 | ED.GENADUL_ITS ---
Discharge Plan Disposition Patient Disposition: [facility] INPATIENT Condition: Improving Discharge Details Chief Complaint: Abd Prob Clinical Impression: Colitis Primary Care Provider: Elizabeth Benton ED Provider: Jose Welch Home Meds and New Rx's Prescriptions: No Action metoprolol succinate 100 mg tablet extended release 24 hr 100 mg PO DAILY Qty: 30 RF: 12 spironolactone 25 mg tablet 25 mg PO BID Qty: 60 RF: 12 amitriptyline 25 mg tablet 25 mg PO DAILY RF: 0 oxycodone 10 mg tablet 10 mg PO Q6H PRNRF: 0 lamotrigine 100 mg tablet 100 mg PO DAILY RF: 0 verapamil 120 mg tablet extended release 240 mg PO DAILY RF: 0 enalapril maleate 10 mg tablet 10 mg PO DAILY Qty: 60 RF: 8 Narcan 4 mg/actuation spray,non-aerosol 1 spray LOGAN ONCE PRNRF: 0 Flovent HFA 44 mcg/actuation HFA aerosol inhaler 2 puff inhalation BID RF: 0 ibuprofen 600 mg tablet 600 mg PO Q6H PRNRF: 0 chlorthalidone 25 mg tablet 25 mg PO DAILY Qty: 30 RF: 6 alprazolam [Xanax] 1 mg Tablet 1 mg PO BID RF: 0 pantoprazole 40 mg tablet,delayed release (DR/EC) 40 mg PO DAILY RF: 0 albuterol sulfate [ProAir HFA] 90 mcg/actuation HFA aerosol inhaler 2 puff INHALATION PRN PRNRF: 0 zolpidem 12.5 mg tablet,ext release multiphase 12.5 mg PO HS RF: 0 Medical Decision Making Physical exam demonstrates Tawana is a 40-year-old female with a past medical history of a recent ovarian cystectomy 1 month ago, hypertension, high cholesterol, asthma, umbilical hernia she admits to nausea but denies vomiting. She denies any recent antibiotics, travel, or camping. No other sick contacts at home. Appendectomy, cholecystectomy, who presents today for evaluation of abdominal pain. Patient states that 1 hour ago she had an episode of watery green diarrhea, as well as small minimal streaking's of blood noted in her stool. She had associated mild distention of her abdomen, came in for further evaluation. She denies any chest pain or shortness of breath. Pain is made worse with moving. No other complaints at this time. She denies eating any atypical or new foods. Distended abdomen, reduce bowel sounds, mild tenderness throughout. Differential at this time includes obstruction, less likely incarceration of hernia as I can palpate no focal hernia at this time. Colitis is also in the differential. We will rehydrate, treat patient's pain, monitor closely, get a CT scan reassess. 6:43 AM Patient's laboratory work-up is returned, patient does have an elevated white count of 13 and left shift. Lactate is elevated at 1.7. Electrolytes normal, renal function stable at 1.7 for creatinine. Lipase normal. Urinalysis negative. CT scan shows evidence of mild diffuse inflammatory bowel wall thickening involving the entire colon suggestive of colitis. No evidence of diverticulitis. There is hepatic steatosis with hepatomegaly, no other acute process per virtual radiology. Repeat abdominal assessment continues to show tenderness in the patient's abdomen, although slightly improved. Patient still notably nauseous, having a challenging time tolerating any p.o. Do not feel that the patient would be best equipped to return home for outpatient treatment at this time. I feel inpatient admission for IV antibiotics especially with her white count, elevated lactate, and continued abdominal pain is indicated at this time. We will reach out to the hospitalist for inpatient admission. 7:17 AM Discussed the case with the hospitalist , he agrees with the assessment and plan. I will place bridging orders on his behalf. I have extensively reviewed the treatment plan with the patient. I have addressed all patient concerns at this time. I have also discussed the plan with the admitting physician and they agree with the current assessment and plan and have agreed to assume responsibility for the patient. All parties demonstrate verbal understanding and agreement with our assessment and plan at this time. The documentation in this chart was dictated using [employer] dictation software. Please excuse any dictation errors. FINDINGS: Lungs: The lungs are otherwise normal. Pleural spaces: There is no evidence of pneumothorax. There are no pleural effusions present. Heart: The cardiac structures are normal. Liver: Liver is enlarged measuring 18 cm There is a diffuse decrease in hepatic parenchymal density, consistent with moderate fatty infiltration. There are no focal liver lesions present. Gallbladder and bile ducts: There has been a cholecystectomy. There is no evidence of intrahepatic or extrahepatic biliary ductal dilation. Pancreas: The pancreas is normal. Spleen: The spleen is normal. Adrenal glands: The adrenal glands are normal without evidence of mass or enlargement. The adrenal glands are normal. Kidneys and ureters: The kidneys are normal no evidence of nephrolithiasis or hydronephrosis. The ureters are normal caliber and follow a normal caliber and course. Stomach and bowel: There is no evidence of intestinal obstruction. There is mild diffuse inflammatory bowel wall thickening involving the entire colon. There is bowel wall edema. There is mild adjacent inflammatory change seen within the peritoneal fat and mesentery. No evidence of diverticulosis to suggest diverticulitis. This likely represents acute colitis. An underlying mass is not excluded. Appendix: There has been an appendectomy. Intraperitoneal space: There is no free intraperitoneal air. There is no evidence of free intraperitoneal or pelvic fluid. Vasculature: The aorta is unremarkable without evidence of significant atherosclerosis or aneurysmal disease. The peripheral arterial vascular system visualized is unremarkable. The portal venous system visualized is unremarkable. The peripheral venous vascular system visualized is unremarkable. Lymph nodes: There is no evidence of lymphadenopathy. Urinary bladder: Unremarkable as visualized. Reproductive: Unremarkable as visualized. Bones/joints: The skeletal structures and soft tissues show no evidence of fracture or other acute processes. Soft tissues: There is a fat-containing umbilical hernia. There is a periumbilical hernia containing fat and mesentery. The extra-abdominal soft tissues are normal. IMPRESSION: 1. There is mild diffuse inflammatory bowel wall thickening involving the entire colon. There is bowel wall edema. There is mild adjacent inflammatory change seen within the peritoneal fat and mesentery. No evidence of diverticulosis to suggest diverticulitis. This likely represents acute colitis. 2. Hepatic steatosis with hepatomegaly Thank you for allowing us to participate in the care of your patient. Dictated and Authenticated by: Pan Sood MD 11/19/2020 6:24 AM Eastern Time ([place] & [place]) HPI General Date/Time Provider Initiated Documentation: 11/19/20 04:52 . HPI Narrative: This is a 40-year-old female with a past medical history of a recent ovarian cystectomy 1 month ago, hypertension, high cholesterol, asthma, umbilical hernia she admits to nausea but denies vomiting. She denies any recent antibiotics, travel, or camping. No other sick contacts at home. Appendectomy, cholecystectomy, who presents today for evaluation of abdominal pain. Patient states that 1 hour ago she had an episode of watery green diarrhea, as well as small minimal streaking's of blood noted in her stool. She had associated mild distention of her abdomen, came in for further evaluation. She denies any chest pain or shortness of breath. Pain is made worse with moving. No other complaints at this time. She denies eating any atypical or new foods. Related Data Home Medications Medication Instructions Recorded Confirmed naloxone 4 mg/actuation nasal spray 1 spray LOGAN ONCE PRN 04/19/18 11/19/20 alprazolam [Xanax] 1 mg PO BID 07/17/18 11/19/20 verapamil 120 mg tablet,extended 240 mg PO DAILY tab 09/21/19 11/19/20 release metoprolol succinate 100 mg 100 mg PO DAILY #30 tab 11/04/19 11/19/20 tablet,extended release 24 hr spironolactone 25 mg tablet 25 mg PO BID #60 tab 11/04/19 11/19/20 enalapril maleate 10 mg tablet 10 mg PO DAILY #60 tab 11/29/19 11/19/20 amitriptyline 25 mg tablet 25 mg PO DAILY 04/18/20 11/19/20 lamotrigine 100 mg tablet 100 mg PO DAILY 04/18/20 11/19/20 oxycodone 10 mg tablet 10 mg PO Q6H PRN 04/18/20 11/19/20 albuterol sulfate [ProAir HFA] 2 puff INHALATION PRN PRN 05/14/20 11/19/20 pantoprazole 40 mg PO DAILY 05/14/20 11/19/20 zolpidem 12.5 mg PO HS 05/14/20 11/19/20 fluticasone propionate 44 2 puff INHALATION BID 06/21/20 11/19/20 mcg/actuation HFA aerosol inhaler ibuprofen 600 mg tablet 600 mg PO Q6H PRN 06/21/20 11/19/20 chlorthalidone 25 mg tablet 25 mg PO DAILY #30 tab 07/12/20 11/19/20 Previous Rx's Medication Instructions Recorded metoprolol succinate 100 mg 100 mg PO DAILY #30 tab 11/04/19 tablet,extended release 24 hr spironolactone 25 mg tablet 25 mg PO BID #60 tab 11/04/19 enalapril maleate 10 mg tablet 10 mg PO DAILY #60 tab 11/29/19 chlorthalidone 25 mg tablet 25 mg PO DAILY #30 tab 07/12/20 Allergies Allergy/AdvReac Type Severity Reaction Status Date / Time tamsulosin [From Flomax] Allergy light Verified 11/19/20 04:52 headed/dizzy prednisone AdvReac Intermediate It makes Verified 11/19/20 04:52 me feel weird codeine AdvReac Mild Nausea Verified 11/19/20 04:52 morphine AdvReac Mild Nausea Verified 11/19/20 04:52 tramadol HCl [From Ultram] AdvReac Mild Nausea Verified 11/19/20 04:52 tegaderm tape AdvReac Intermediate ariza my Uncoded 11/19/20 04:52 skin General Stated Complaint: Abd Prob JOEL: 3 Review of Systems All systems reviewed & are unremarkable except as noted in HPI and below PFSH Medical History Abdominal pain Active asthma ADD (attention deficit disorder) Affective bipolar disorder Amenorrhea Bilateral kidney stones Causalgia of left upper extremity Cervical disc disease Chest pain at rest pt. denies this Chronic headache Chronic insomnia Chronic pain Chronic wrist pain Cold sore Conversion disorder tremor, stutter, weakness CVA tenderness Depression with anxiety Dizziness Essential hypertension Essential tremor Gastritis Headache, chronic migraine without aura Carcamo sign present Hydronephrosis Kidney stones Knee pain Left-sided thoracic back pain Medication overuse headache Memory loss Migraines Neuralgia Numbness and tingling Psychogenic tremor Rectal bleeding Right arm weakness RLQ abdominal pain Upper respiratory infection pt. denies this Ureteral calculi Surgical History H/O ovarian cystectomy 10/18/2020. Laparoscopic right ovarian cystectomy for persistent 4 cm right ovarian cyst. History of carpal tunnel surgery of left wrist Repair of umbilical hernia S/P appendectomy S/P cholecystectomy S/P knee surgery Family History Father Cerebral aneurysm Social History Smoking/Tobacco Use Status: Current every day Tobacco Type: cigarettes Smoking packs per day: 0.5 Smoking cigarettes per day: 10.0 Years smoked: 30 Smoking pack-years: 15.00 Smoking risk assessment performed?: Yes Alcohol Intake: never Drug use: Never Substance use type: does not use Household members: significant other and other Details: BF-Rufus x7yrs. S- Chance. Moved to [place] 2mo ago to be w/ GF. Number of Children: 1 current occupation: Unemployed secondary to disability Current gender identity: female Do you feel safe at home: Yes Do you feel safe in your relationship?: Yes Female Reproductive History Menstrual Duration of menses: 3-5 days (Average flow minimal dysmenorrhea) control method: none Exam Narrative Exam Narrative: 1.Const: Well-nourished, Well-developed, appearing stated age 2.Eyes: PERRL, no conjunctival injection, and symmetrical lids. 3.ENT: Atraumatic external nose and ears. Moist MM. Neck: Symmetric, trachea midline, No thyromegaly. 4.CVS: +S1/S2, No murmurs or gallops. Peripheral pulses 2+ and equal in all extremities. Brisk capillary refill in all extremities. 5.RESP: Unlabored respiratory effort. Clear to auscultation bilaterally. No wheezes rales or rhonchi 6.GI: Mildly distended, tenderness throughout, primarily in the periumbilical and mid abdominal region. 7.MSK: Normocephalic/Atraumatic, Extremities w/o deformity or ttp No cyanosis or clubbing, Normal movement of all extremities 8.Skin: Warm, Dry. No rashes or lesions. 9.Neuro: pack puller II-XII grossly intact. Sensation grossly intact, no focal neurologic deficits. 10.Psych: (AAO) x3. Appropriate mood and affect Course Vital Signs Vital signs: Vital Signs Temperature 36.6 C 11/19/20 04:44 Pulse 86 11/19/20 04:44 Respiratory Rate 18 11/19/20 04:44 Blood Pressure 122/87 11/19/20 04:44 Pulse Oximetry 98 11/19/20 04:44 Temperature 36.6 C 11/19/20 04:44 Temperature Source Skin 11/19/20 04:44 Pulse 86 11/19/20 04:44 Respiratory Rate 18 11/19/20 04:44 Blood Pressure 122/87 11/19/20 04:44 Blood Pressure Position Sitting 11/19/20 04:44 Pulse Oximetry 98 11/19/20 04:44 Oxygen Delivery Method Room Air 11/19/20 04:44 Oxygen Flow Rate 0 11/19/20 04:44 Pain Level 7 11/19/20 04:44
[2020-11-19] MEDS: Ondansetron 4 MG/2 ML VIAL IVP ×2 (05:10→09:31)
[2020-11-19 05:13] LABS: Lactate 1.7 mmol/L (0.6-1.4)
[2020-11-19 05:14] LABS: Abs Immature Grans 0.09 10^3/uL (0.0-0.06); Absolute Basophil Count 0.08 10^3/uL (0.0-0.2); Absolute Eosinophil Count 0.43 10^3/uL (0.0-0.7); Absolute Lymphocyte Count 3.27 10^3/uL (1.2-3.4); Absolute Monocyte Count 0.95 10^3/uL (0.1-0.8); Absolute Neutrophil Count 8.36 10^3/uL (1.2-6.7); Basophils % 0.6; Eosinophils % 3.3; Immature Grans % 0.7; Lymphocytes % 24.8; MCHC 32.6 % (32.0-36.0); MCV 98.2 fL (80-95); MPV 9.6 fL (8.0-11.0); Monocytes % 7.2; Neutrophils % 63.4; Nucleated RBC 0 %; Platelet Count 333 10^3/uL (130-400); RBC 4.38 10^6/uL (3.93-5.22); RDW 12.8 % (11.7-14.6); WBC 13.18 10^3/uL (4.4-10.8)
[2020-11-19 05:23] LABS: Bilirubin Negative (Negative); Blood Negative (Negative); Clarity Clear (Clear); Glucose Negative (Negative); Ketones Negative (Negative); Leukocyte Esterase Negative (Negative); Nitrite Negative (Negative); Specific Gravity 1.025 (1.005-1.025); Urobilinogen 0.2 EU/dL (Up TO 0.2); pH 5.5 (5-8)
[2020-11-19 05:29] LABS: ALT 35 U/L (14-59); AST 19 U/L (15-37); Albumin 3.6 g/dL (3.4-5.0); Alkaline Phosphatase 98 U/L (46-116); Anion Gap 7.9 mmol/L (3-11); BUN 26 mg/dL (7-18); Bilirubin, Total 0.2 mg/dL (0.2-1.0); CO2 27.1 mmol/L (21.0-32.0); CREATININE 1.7 mg/dL (0.55-1.02); Calcium 9.5 mg/dL (8.5-10.1); Chloride 102 mmol/L (98-107); Estimated GFR 32.96 (mL/min/1.73m2); Glucose 188 mg/dL (74-106); Lipase 299 U/L (73-393); Potassium 4.4 mmol/L (3.5-5.1); Sodium 137 mmol/L (136-145); Total Protein 7.9 g/dL (6.4-8.2)
[2020-11-19] MEDS: Normal Saline 1,000 ML 1000 ML IV (05:31)
[2020-11-19] MEDS: MORPHine 4 MG/ML SYR IVP (05:32)
[2020-11-19] MEDS: Normal Saline Flush 10 ML SYR IVP (05:33)
--- NOTE | 2020-11-19 06:25 | DI.VRAD_ITS ---
PROCEDURE INFORMATION: Exam: CT Abdomen And Pelvis With Contrast Exam date and time: 11/19/2020 4:55 AM Age: 40 years old Clinical indication: Other: Diarrhea, distention; Localized; Prior surgery; Surgery date: 1-6 months; Surgery type: R ovarian cystectomy 10/18/20. HX of hernia repair, appendectomy, cholecystectomy; Patient HX: Lower abdominal pain, diarrhea, distension TECHNIQUE: Imaging protocol: Computed tomography of the abdomen and pelvis with contrast. Radiation optimization: All CT scans at this facility use at least one of these dose optimization techniques: automated exposure control; mA and/or kV adjustment per patient size (includes targeted exams where dose is matched to clinical indication); or iterative reconstruction. Contrast material: OMNIPAQUE 350; Contrast volume: 100 ml; Contrast route: INTRAVENOUS (IV); COMPARISON: CT ABDOMEN PELVIS W 05/14/2020 1:07 PM FINDINGS: Lungs: The lungs are otherwise normal. Pleural spaces: There is no evidence of pneumothorax. There are no pleural effusions present. Heart: The cardiac structures are normal. Liver: Liver is enlarged measuring 18 cm There is a diffuse decrease in hepatic parenchymal density, consistent with moderate fatty infiltration. There are no focal liver lesions present. Gallbladder and bile ducts: There has been a cholecystectomy. There is no evidence of intrahepatic or extrahepatic biliary ductal dilation. Pancreas: The pancreas is normal. Spleen: The spleen is normal. Adrenal glands: The adrenal glands are normal without evidence of mass or enlargement. The adrenal glands are normal. Kidneys and ureters: The kidneys are normal no evidence of nephrolithiasis or hydronephrosis. The ureters are normal caliber and follow a normal caliber and course. Stomach and bowel: There is no evidence of intestinal obstruction. There is mild diffuse inflammatory bowel wall thickening involving the entire colon. There is bowel wall edema. There is mild adjacent inflammatory change seen within the peritoneal fat and mesentery. No evidence of diverticulosis to suggest diverticulitis. This likely represents acute colitis. An underlying mass is not excluded. Appendix: There has been an appendectomy. Intraperitoneal space: There is no free intraperitoneal air. There is no evidence of free intraperitoneal or pelvic fluid. Vasculature: The aorta is unremarkable without evidence of significant atherosclerosis or aneurysmal disease. The peripheral arterial vascular system visualized is unremarkable. The portal venous system visualized is unremarkable. The peripheral venous vascular system visualized is unremarkable. Lymph nodes: There is no evidence of lymphadenopathy. Urinary bladder: Unremarkable as visualized. Reproductive: Unremarkable as visualized. Bones/joints: The skeletal structures and soft tissues show no evidence of fracture or other acute processes. Soft tissues: There is a fat-containing umbilical hernia. There is a periumbilical hernia containing fat and mesentery. The extra-abdominal soft tissues are normal. IMPRESSION: 1. There is mild diffuse inflammatory bowel wall thickening involving the entire colon. There is bowel wall edema. There is mild adjacent inflammatory change seen within the peritoneal fat and mesentery. No evidence of diverticulosis to suggest diverticulitis. This likely represents acute colitis. 2. Hepatic steatosis with hepatomegaly Dictated and Authenticated by: Pan Sood MD. Ordering:FRANCA Garcia MD
[2020-11-19] MEDS: metroNIDAZOLE 500 MG/100 ML BAG 100 MG IVPB ×2 (07:20→16:07)
[2020-11-19 07:27] LABS: Source Nasal/Nares
[2020-11-19] MEDS: Normal Saline 500 ML IV (07:27)
--- NOTE | 2020-11-19 08:47 | PDOC.CMPRO ---
- If Service Date Differs Date of service: 11/19/20 Time of Service: 08:47
--- NOTE | 2020-11-19 08:52 | INITIAL_ITS ---
- If Service Date Differs Date of service: 11/19/20 Time of Service: 08:52 Care Management Initial Assess REASON FOR HOSPITALIZATION:: Colitis PAST MEDICAL HISTORY/PAST SURGICAL HISTORY:: Medical History . Abdominal pain. Active asthma. ADD (attention deficit disorder). Affective bipolar disorder. Amenorrhea. Bilateral kidney stones. Causalgia of left upper extremity. Cervical disc disease. Chest pain at rest. pt. denies this. Chronic headache. Chronic insomnia. Chronic pain. Chronic wrist pain. Cold sore. Conversion disorder. tremor, stutter, weakness. CVA tenderness. Depression with anxiety. Dizziness. Essential hypertension. Essential tremor. Gastritis. Headache, chronic migraine without aura. Carcamo sign present. Hydronephrosis. Kidney stones. Knee pain. Left-sided thoracic back pain. Medication overuse headache. Memory loss. Migraines. Neuralgia. Numbness and tingling. Psychogenic tremor. Rectal bleeding. Right arm weakness. RLQ abdominal pain. Upper respiratory infection. pt. denies this. Ureteral calculi. Surgical History . H/O ovarian cystectomy. 10/18/2020. Laparoscopic right ovarian cystectomy for persistent 4 cm right ovarian cyst. History of carpal tunnel surgery of left wrist. Repair of umbilical hernia. S/P appendectomy. S/P cholecystectomy. S/P knee surgery PREVIOUS FUNCTIONAL STATUS/SOCIAL/FAMILY SUPPORTS:: Shalini lives in an apartment in [place], [place] with her boyfriend Rufus. She has one son who lives in [place] but they do not communicate often. Shalini is disabled secondary to chronic back and neck problems as well as her bipolar diagnosis. She is fairly independent with ADLs and Rufus helps her with whatever she is unable to do independently. Shalini receives [employer] and disability but no other community services. CURRENT FUNCTIONAL STATUS:: Shalini was lying in bed when CM met with her. She was polite and willing to engage with CM. Shalini shared that she continues to have a burning sensation in her side and feels like she has a lump in her abdomen. She had been NPO but is now on a clear liquid diet. Shalini informed that she sees Dr. Garcia in [place] for her mental health issues and that she has been stable on her medication. ADVANCE DIRECTIVES:: none on file and is not interested in completing Has patient been provided with info about the portal/API?: Yes Did the patient sign up for the portal?: No CODE STATUS:: Full Code INSURANCE COVERAGE / FINANCIAL ISSUES:: Medicaid CURRENT HOME/COMMUNITY SERVICES/EQUIPMENT:: Theory received [facility] [place] PRIMARY CARE PHYSICIAN:: Elizabeth Benton POTENTIAL DISCHARGE NEEDS:: Follow up with PCP and plan of care PATIENT/FAMILY EDUCATION NEEDS:: Review of discharge instructions, medications, activity, follow up plan, limitations, Ask Me [employer] TRANSPORTATION:: via private vehicle with family PLAN:: Theory will likely return home with no new services. She will follow up with her community providers and transport with her boyfriend. CM will continue to support Theory and assess for discharge planning needs.
[2020-11-19 09:19] LABS: COVID-19 PCR Negative (Negative)
[2020-11-19] MEDS: HYDROmorphone 2 MG/ML VIAL 0.5 MG IVP (09:29)
[2020-11-19] MEDS: CIPROFLOXACIN 400 MG/200 ML BAG 200 MG IVPB (09:30)
--- NOTE | 2020-11-19 10:26 | W.PM.HP.N ---
Date of service: 11/19/20 Time of Service: 10:27 Assessment and Plan Assessment and plan (1) Colitis: Start date: 11/19/20 Start time: 10:47 Status: Acute Assessment and plan: Elevated WBC, reports abd pain x 3 days with bloody diarrhea Initiated on cipro and flagyl Clears with low dose LR, hold diuretics and monitor as patient has been nauseated, if nausea is worse will make NPO (2) Acute diarrhea: Start date: 11/19/20 Start time: 10:55 Status: Acute Assessment and plan: as above. (3) Abdominal pain: Start date: 11/19/20 Start time: 10:50 Status: Acute Assessment and plan: as above Continue po chronic pain med and added dilaudid prn for abd pain with zofran Qualifiers: Abdominal location: epigastric Qualified Code(s): R10.13 - Epigastric pain (4) Bipolar 1 disorder: Start date: 11/19/20 Start time: 10:51 Status: Chronic Assessment and plan: on xanax and lamictal for mood stabilizer (5) Chronic GERD: Start date: 11/19/20 Start time: 10:52 Status: Chronic Assessment and plan: protonix continue (6) Essential hypertension: Start date: 11/19/20 Start time: 10:54 Status: Chronic Assessment and plan: continue home meds with exception of diuretics as above (7) Complex regional pain syndrome: Start date: 11/19/20 Start time: 11:37 Status: Suspected Assessment and plan: continue home regimen Qualifiers: Complex regional pain syndrome type: type II (causalgia) Complex regional pain syndrome affected site: unspecified Qualified Code(s): G56.40 - Causalgia of unspecified upper limb (8) ANN (obstructive sleep apnea): Start date: 11/19/20 Start time: 11:37 Status: Chronic Assessment and plan: Not on cpap, use oxygen at night as needed (9) DVT prophylaxis: Start date: 11/19/20 Start time: 11:38 Status: Acute Assessment and plan: due to bloody diarrhea will use TEDs and SCDs (10) Discharge planning issues: Start date: 11/19/20 Start time: 11:38 Status: Acute Assessment and plan: home when medically ready discussed with Dr. Torrez History of Present Illness History of Present Illness Chief Complaint: Colitis, abd pain Narrative: 40 y.o female with PMH of Bipolar, depression, CTS, ANN, GERD, Chronic pain, ADHD presents to ED with 3 days of abd pain, nausea. She woke up this morning of admission with bloody diarrhea prompting her to come to ED. Labs in ED remarkable for WBC 13.18, lactate 1.7, elevated creatinine which appears around baseline as this has been trending up. CT of abd reveals colitis for this reason she has been asked to be admitted to m/s by hospitalist group. She will receive IV cipro and flagyl. Clears with IV fluids. Monitor labs. Nicotrol inhaler. Teds and scds as she is having bloody diarrhea. Review of Systems All systems reviewed & are unremarkable except as noted in HPI and below [facility] Medical History (Updated 11/19/20 @ 11:37 by Linda Subramanian NP) Abdominal pain Active asthma ADD (attention deficit disorder) Adnexal mass Affective bipolar disorder Amenorrhea ASCUS with positive high risk HPV 09/2020. Will f/u at [facility] for colposcopy after issue with RLQ pain is addressed. Bilateral kidney stones Causalgia of left upper extremity Cervical disc disease Chest pain at rest pt. 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 denies this Ureteral calculi Surgical History (Updated 11/19/20 @ 10:44 by Linda Subramanian NP) Carpal tunnel syndrome, left s/p left ECTR DOS: 01/23/20 H/O ovarian cystectomy 10/18/2020. Laparoscopic right ovarian cystectomy for persistent 4 cm right ovarian cyst. History of carpal tunnel surgery of left wrist Repair of umbilical hernia S/P appendectomy S/P cholecystectomy S/P knee surgery Family History Father Cerebral aneurysm Social History Smoking/Tobacco Use Status: Current every day Tobacco Type: cigarettes Smoking packs per day: 0.5 Smoking cigarettes per day: 10.0 Years smoked: 30 Smoking pack-years: 15.00 Smoking risk assessment performed?: Yes Alcohol Intake: never Drug use: Never Substance use type: does not use Household members: significant other and other Details: BF-Rufus x7yrs. S-Chance. Moved to [place] 2mo ago to be w/ GF. Number of Children: 1 current occupation: Unemployed secondary to disability Current gender identity: female Do you feel safe at home: Yes Do you feel safe in your relationship?: Yes Female Reproductive History Menstrual Duration of menses: 3-5 days (Average flow minimal dysmenorrhea) control method: none Meds Allergies and Home Medications Allergies Allergy/AdvReac Type Severity Reaction Status Date / Time tamsulosin [From Flomax] Allergy light Verified 11/19/20 04:52 headed/dizzy prednisone AdvReac Intermediate It makes Verified 11/19/20 04:52 me feel weird codeine AdvReac Mild Nausea Verified 11/19/20 04:52 morphine AdvReac Mild Nausea Verified 11/19/20 04:52 tramadol HCl [From Ultram] AdvReac Mild Nausea Verified 11/19/20 04:52 tegaderm tape AdvReac Intermediate ariza my Uncoded 11/19/20 04:52 skin Home Medications Medication Instructions Recorded Confirmed Type naloxone 4 mg/actuation nasal spray 1 spray LOGAN ONCE PRN 04/19/18 11/19/20 History alprazolam [Xanax] 1 mg PO BID 07/17/18 11/19/20 History verapamil 120 mg tablet,extended 240 mg PO DAILY tab 09/21/19 11/19/20 History release metoprolol succinate 100 mg 100 mg PO DAILY #30 tab 11/04/19 11/19/20 Rx tablet,extended release 24 hr spironolactone 25 mg tablet 25 mg PO BID #60 tab 11/04/19 11/19/20 Rx enalapril maleate 10 mg tablet 10 mg PO DAILY #60 tab 11/29/19 11/19/20 Rx amitriptyline 25 mg tablet 25 mg PO DAILY 04/18/20 11/19/20 History albuterol sulfate [ProAir HFA] 2 puff INHALATION PRN PRN 05/14/20 11/19/20 History pantoprazole 40 mg PO DAILY 05/14/20 11/19/20 History zolpidem 12.5 mg PO HS 05/14/20 11/19/20 History fluticasone propionate 44 2 puff INHALATION BID 06/21/20 11/19/20 History mcg/actuation HFA aerosol inhaler ibuprofen 600 mg tablet 600 mg PO Q6H PRN 06/21/20 11/19/20 History chlorthalidone 25 mg tablet 25 mg PO DAILY #30 tab 07/12/20 11/19/20 Rx lamotrigine 150 mg PO HS 11/19/20 11/19/20 History oxycodone 10 mg PO 5X/DAY 11/19/20 11/19/20 History Exam Const General: cooperative, comfortable and no acute distress Nutritional Appearance: obese Orientation: alert, awake and oriented x3 Eyes Eyelids: eyelids normal Pupils: PERRL EOM: EOM intact bilaterally Neck Neck: normal visual inspection and no JVD Lymphatic: no lymphadenopathy noted Resp Effort & Inspection: normal respiratory effort Auscultation: clear to auscultation bilaterally Cardio Jugular venous pressure: no JVD Rhythm: regular rhythm Heart Sounds: S1 normal GI Inspection: obesity Auscultation: abnormal bowel sounds and hyperactive bowel sounds General: No CVA tenderness and deferred Skin General skin exam: no rashes or lesions noted Neuro General: patient alert, patient awake and patient oriented x3 Cognition: normal cognition Speech: speech normal Gait: normal gait Extrem General: normal to inspection, full ROM and no clubbing, cyanosis or edema Results Labs Result diagrams: 11/19/20 05:05 11/19/20 05:05 Labs: Laboratory Results - last 24 hr 11/19/20 11/19/20 11/19/20 04:42 05:05 05:05 WBC RBC Hgb Hct MCV MCH MCHC RDW Plt Count MPV Immature Gran % Neutrophils % Lymphocytes % Monocytes % Eosinophils % Basophils % Nucleated RBC % Absolute Neutrophils Absolute Lymphocytes Absolute Monocytes Absolute Eosinophils Absolute Basophils VBG Lactate 1.7 H Sodium 137 Potassium 4.4 Chloride 102 Carbon Dioxide 27.1 Anion Gap 7.9 BUN 26 H Creatinine 1.7 H Estimated GFR/1.73 m2 32.96 Glucose 188 H Calcium 9.5 Total Bilirubin 0.2 AST 19 ALT 35 Alkaline Phosphatase 98 Total Protein 7.9 Albumin 3.6 Lipase 299 Urine Color Yellow Urine Clarity Clear Urine pH 5.5 Ur Specific [place] 1.025 Urine Protein Negative Urine Ketones Negative Urine Blood Negative Urine Nitrite Negative Urine Bilirubin Negative Urine Urobilinogen 0.2 Ur Leukocyte Esterase Negative Urine Glucose Negative COVID-19 Source SARS-CoV-2 (PCR) 11/19/20 11/19/20 05:05 07:26 WBC 13.18 H RBC 4.38 Hgb 14.0 Hct 43.0 MCV 98.2 H MCH 32.0 MCHC 32.6 RDW 12.8 Plt Count 333 MPV 9.6 Immature Gran % 0.7 Neutrophils % 63.4 Lymphocytes % 24.8 Monocytes % 7.2 Eosinophils % 3.3 Basophils % 0.6 Nucleated RBC % 0 Absolute Neutrophils 8.36 H Absolute Lymphocytes 3.27 Absolute Monocytes 0.95 H Absolute Eosinophils 0.43 Absolute Basophils 0.08 VBG Lactate Sodium Potassium Chloride Carbon Dioxide Anion Gap BUN Creatinine Estimated GFR/1.73 m2 Glucose Calcium Total Bilirubin AST ALT Alkaline Phosphatase Total Protein Albumin Lipase Urine Color Urine Clarity Urine pH Ur Specific [place] Urine Protein Urine Ketones Urine Blood Urine Nitrite Urine Bilirubin Urine Urobilinogen Ur Leukocyte Esterase Urine Glucose COVID-19 Source Nasal/Nares SARS-CoV-2 (PCR) Negative Last Vital Signs Temp 36.6 C 11/19/20 08:31 Pulse 79 11/19/20 08:31 Resp 18 11/19/20 08:31 BP 117/81 11/19/20 08:31 Pulse Ox 98 11/19/20 08:31
[2020-11-19 13:55] LABS: C Diff PCR Positive (Negative)
[2020-11-19] MEDS: Vancomycin 125 MG CAP PO ×2 (16:08→21:31)
[2020-11-19] MEDS: oxyCODONE 10 MG TAB PO (16:56)
[2020-11-19] MEDS: Zolpidem 6.25 MG TABCR 12.5 MG PO (21:31)
[2020-11-19] MEDS: ALPRAZolam 0.5 MG TAB 1 MG PO (21:31)
[2020-11-20 00:40] VITALS: BP 101/67; PULSE 89; RESP 16; TEMP 36.5; O2SAT 98
[2020-11-20] MEDS: metroNIDAZOLE 500 MG/100 ML BAG 100 MG IVPB ×2 (00:40→07:47)
[2020-11-20] MEDS: Vancomycin 125 MG CAP PO ×2 (02:34→07:47)
[2020-11-20] MEDS: oxyCODONE 10 MG TAB PO (02:37)
[2020-11-20 03:06] VITALS: O2SAT 98
[2020-11-20 04:50] VITALS: BP 119/83; PULSE 98; RESP 16; TEMP 36; O2SAT 93
[2020-11-20 06:57] LABS: Abs Immature Grans 0.04 10^3/uL (0.0-0.06); Absolute Basophil Count 0.04 10^3/uL (0.0-0.2); Absolute Eosinophil Count 0.36 10^3/uL (0.0-0.7); Absolute Lymphocyte Count 2.32 10^3/uL (1.2-3.4); Absolute Monocyte Count 0.49 10^3/uL (0.1-0.8); Basophils % 0.4; Eosinophils % 3.8; HGB 12.2 g/dL (11.2-15.7); Immature Grans % 0.4; Lymphocytes % 24.3; MCH 31.4 pg (27.0-33.0); MCHC 32.1 % (32.0-36.0); MCV 97.7 fL (80-95); MPV 9.7 fL (8.0-11.0); Monocytes % 5.1; Nucleated RBC 0 %; Platelet Count 259 10^3/uL (130-400); RBC 3.89 10^6/uL (3.93-5.22); RDW 12.7 % (11.7-14.6); RDW-SD 45.6 fL; WBC 9.55 10^3/uL (4.4-10.8)
[2020-11-20 07:09] LABS: Anion Gap 8.1 mmol/L (3-11); BUN 17 mg/dL (7-18); CO2 24.9 mmol/L (21.0-32.0); CREATININE 1.5 mg/dL (0.55-1.02); Calcium 8.6 mg/dL (8.5-10.1); Chloride 105 mmol/L (98-107); Estimated GFR 38.08 (mL/min/1.73m2); Glucose 142 mg/dL (74-106); Potassium 4.1 mmol/L (3.5-5.1); Sodium 138 mmol/L (136-145)
[2020-11-20 07:11] VITALS: BP 131/89; PULSE 96; RESP 16; TEMP 36; O2SAT 93
[2020-11-20 07:12] LABS: Magnesium 1.4 mg/dL (1.8-2.4)
[2020-11-20] MEDS: Pantoprazole 40 MG TABCR PO (07:45)
[2020-11-20] MEDS: ALPRAZolam 0.5 MG TAB 1 MG PO (07:46)
[2020-11-20] MEDS: Enalapril 5 MG TAB 10 MG PO (07:47)
[2020-11-20] MEDS: Metoprolol CR 100 MG TABCR PO (07:47)
[2020-11-20] MEDS: Normal Saline Flush 10 ML SYR IVP (07:50)
--- NOTE | 2020-11-20 08:43 | PDOC.CMPRO ---
- If Service Date Differs Date of service: 11/20/20 Time of Service: 08:43 Care Management Progress Note S/O: A: Theory is a 40 year old woman admitted on 11/19/20 with Colitis P: Theory will likely return home with no new services. She will follow up with her community providers and transport with her boyfriend. CM will continue to support Theory and assess for discharge planning needs.
[2020-11-20] MEDS: MAGNESIUM SULFATE 4 GM/100 ML BAG IVPB (09:48)
[2020-11-20] MEDS: Acetaminophen 325 MG TAB 650 MG PO (10:42)
--- NOTE | 2020-11-20 11:16 | W.PM.DS.N ---
Date of service: 11/20/20 Time of Service: 11:16 DS: Diagnosis Discharge Diagnosis (1) Colitis: Status: Acute (2) Abdominal pain: Status: Acute (3) Bipolar 1 disorder: Status: Chronic (4) Chronic GERD: Status: Chronic (5) Essential hypertension: Status: Chronic (6) Complex regional pain syndrome: Status: Suspected (7) ANN (obstructive sleep apnea): Status: Chronic Discharge Plan Disposition Patient Disposition: HOME Condition: Improving Discharge Details Reason For Visit: Colitis Admit Date/Time: 11/19/20 07:16 Admit Provider: Nicholas Torrez Attending Provider: Nicholas Torrez Primary Care Provider: Elizabeth Benton [facility] Hospital Course: this is a 40 y.o female with PMH of Bipolar, depression, CTS, ANN, GERD, Chronic pain, ADHD who presented to ED with 3 days of abd pain, nausea. She woke up this morning of admission with bloody diarrhea prompting her to come to ED. Labs in ED remarkable for WBC 13.18, lactate 1.7, elevated creatinine which appears around baseline as this has been trending up. CT of abd reveals colitis for this reason she has been asked to be admitted to m/s by hospitalist group. She was started on IV cipro and flagyl. Clears with IV fluids. Her stool was sent to the lab and positive for cdiff. she was started on oral vancomycin. she reports she no longer has loose stools and actually had a formed BM overnight. she is tolerating po well and stable for discharge to home. her abdominal pain has improved. she will be discharged to complete 7 days of vanco to complete course for cdiff. discharge discussed with DR Torrez. Home Meds and New Rx's Prescriptions: New vancomycin 125 mg Capsule 125 mg PO Q6H Qty: 24 RF: 0 Continued metoprolol succinate 100 mg tablet extended release 24 hr 100 mg PO DAILY Qty: 30 RF: 12 spironolactone 25 mg tablet 25 mg PO BID Qty: 60 RF: 12 amitriptyline 25 mg tablet 25 mg PO DAILY RF: 0 verapamil 120 mg tablet extended release 240 mg PO DAILY RF: 0 enalapril maleate 10 mg tablet 10 mg PO DAILY Qty: 60 RF: 8 Narcan 4 mg/actuation spray,non-aerosol 1 spray LOGAN ONCE PRNRF: 0 Flovent HFA 44 mcg/actuation HFA aerosol inhaler 2 puff inhalation BID RF: 0 ibuprofen 600 mg tablet 600 mg PO Q6H PRNRF: 0 chlorthalidone 25 mg tablet 25 mg PO DAILY Qty: 30 RF: 6 alprazolam [Xanax] 1 mg Tablet 1 mg PO BID RF: 0 lamotrigine 150 mg tablet 150 mg PO HS RF: 0 oxycodone 5 mg tablet 10 mg PO 5X/DAY RF: 0 pantoprazole 40 mg tablet,delayed release (DR/EC) 40 mg PO DAILY RF: 0 albuterol sulfate [ProAir HFA] 90 mcg/actuation HFA aerosol inhaler 2 puff INHALATION PRN PRNRF: 0 zolpidem 12.5 mg tablet,ext release multiphase 12.5 mg PO HS RF: 0 Discharge Instructions Instructions: C. Diff (Clostridioides Difficile) Infection (DC) Additional Instructions: push fluids to stay well hydrated. 6-8 glasses of water daily. Drink a lot of liquids that have water, salt, and sugar. Good choices are water mixed with juice, flavored soda, and soup broth. If you are drinking enough, your urine will be light yellow or almost clear. ?Try to eat a little food. Good choices are potatoes, noodles, rice, oatmeal, crackers, bananas, soup, and boiled vegetables. Probiotics are bacteria that are good for the intestines. If your diarrhea comes back after treatment, let your doctor or nurse know. They will probably use medicines to treat it again. But you might need to take the medicines for longer. Stand Alone Forms: Nursing Discharge Form Referrals: Elizabeth Benton [Primary Care Provider] - 12/05/20 10:00 am (You appointment will be with Dr. Green) Activity:: Activity as Tolerated Equipment/Supplies:: No Equipment Needed Diet:: As Tolerated Discharge Orders Discharge Orders: Discharge Order (Routine); Ordered 11/20/20 Ordered By: Sofia Hodge Discharge Data Discharge Date/Time-TO BE ENTERED AT DEPARTURE: 11/20/20 14:21 DS: Summary Time Spent with Patient providing and/or coordinating discharge services: Less than 30 minutes Status at Discharge Functional status at discharge: independent ambulation Overall status at discharge: patient is progressing back to baseline Mental Status: mental status grossly normal Speech and Movement: speech and movement normal Mood: congruent mood Affect: normal affect Exam Const General: cooperative, comfortable and no acute distress Nutritional Appearance: obese Orientation: alert, awake and oriented x3 Eyes EOM: EOM intact bilaterally Neck Neck: normal visual inspection and no JVD Lymphatic: no lymphadenopathy noted Resp Effort & Inspection: normal respiratory effort Auscultation: clear to auscultation bilaterally Cardio Jugular venous pressure: no JVD Rhythm: regular rhythm Heart Sounds: S1 normal GI Inspection: obesity General: No CVA tenderness and deferred Skin General skin exam: no rashes or lesions noted Neuro General: patient alert, patient awake and patient oriented x3 Cognition: normal cognition Speech: speech normal Gait: normal gait Extrem General: normal to inspection and full ROM Psych Mental Status: mental status grossly normal Speech and Movement: speech and movement normal Mood: congruent mood Affect: normal affect DS: Data Vitals/I&O Vitals and I&O: Vital Signs Temperature 36 C L 11/20/20 07:11 Temperature Source Tympanic 11/20/20 07:11 Pulse 96 H 11/20/20 07:11 Pulse Rhythm Regular 11/19/20 17:06 Respiratory Rate 16 11/20/20 07:11 Respiratory Effort Non-Labored 11/20/20 10:28 Respiratory Depth Normal 11/20/20 10:28 Respiratory Pattern Normal 11/20/20 10:28 Blood Pressure 131/89 11/20/20 07:11 Blood Pressure Mean 90 11/19/20 07:01 Blood Pressure Position Sitting 11/19/20 04:44 Pulse Oximetry 93 11/20/20 07:11 Oxygen Delivery Method Room Air 11/20/20 07:11 Oxygen Flow Rate 0 11/20/20 07:11 Pain Level 8 11/20/20 10:42 Comment 11/19/20 09:31 Intake & Output 11/19/20 11/19/20 11/20/20 11:59 23:59 11:59 Intake Total 1100 / 1100 320 / 320 Output Total 350 / 350 Balance 1100 / 750 -350 / 750 320 / 320 Weight 108.7 kg Intake: IV 1100 / 1100 200 / 200 Oral 120 / 120 Output: Stool 350 / 350 Other: Urine Color Yellow Urine Appearance Clear Clear Clear Comment pT voids independent in toilet Patient self ambulated to the toilet Stool Size Small Small Stool Characteristics Soft Soft Formed Formed Voiding Methods Toilet Toilet Data Completed and Pending Labs on day of discharge: Labs from last 24 hours 11/20/20 11/20/20 11/20/20 06:19 06:15 06:15 WBC 9.55 RBC 3.89 L Hgb 12.2 Hct 38.0 MCV 97.7 H MCH 31.4 MCHC 32.1 RDW 12.7 Plt Count 259 MPV 9.7 Immature Gran % 0.4 Neutrophils % 66.0 Lymphocytes % 24.3 Monocytes % 5.1 Eosinophils % 3.8 Basophils % 0.4 Nucleated RBC % 0 Absolute Neutrophils 6.30 Absolute Lymphocytes 2.32 Absolute Monocytes 0.49 Absolute Eosinophils 0.36 Absolute Basophils 0.04 Sodium 138 Potassium 4.1 Chloride 105 Carbon Dioxide 24.9 Anion Gap 8.1 BUN 17 D Creatinine 1.5 H Estimated GFR/1.73 m2 38.08 Glucose 142 H Calcium 8.6 Magnesium 1.4 L Stl C.difficile Tox PCR 11/19/20 12:30 WBC RBC Hgb Hct MCV MCH MCHC RDW Plt Count MPV Immature Gran % Neutrophils % Lymphocytes % Monocytes % Eosinophils % Basophils % Nucleated RBC % Absolute Neutrophils Absolute Lymphocytes Absolute Monocytes Absolute Eosinophils Absolute Basophils Sodium Potassium Chloride Carbon Dioxide Anion Gap BUN Creatinine Estimated GFR/1.73 m2 Glucose Calcium Magnesium Stl C.difficile Tox PCR Positive A [facility] Medical History (Updated 11/19/20 @ 11:37 by Linda Subramanian NP) Abdominal pain Active asthma ADD (attention deficit disorder) Adnexal mass Affective bipolar disorder Amenorrhea ASCUS with positive high risk HPV 09/2020. Will f/u at [facility] for colposcopy after issue with RLQ pain is addressed. Bilateral kidney stones Causalgia of left upper extremity Cervical disc disease Chest pain at rest pt. 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 denies this Ureteral calculi Surgical History (Updated 11/19/20 @ 10:44 by Linda Subramanian NP) Carpal tunnel syndrome, left s/p left ECTR DOS: 01/23/20 H/O ovarian cystectomy 10/18/2020. Laparoscopic right ovarian cystectomy for persistent 4 cm right ovarian cyst. History of carpal tunnel surgery of left wrist Repair of umbilical hernia S/P appendectomy S/P cholecystectomy S/P knee surgery Family History Father Cerebral aneurysm Social History Smoking/Tobacco Use Status: Current every day Tobacco Type: cigarettes Smoking packs per day: 0.5 Smoking cigarettes per day: 10.0 Years smoked: 30 Smoking pack-years: 15.00 Smoking risk assessment performed?: Yes Alcohol Intake: never Drug use: Never Substance use type: does not use Household members: significant other and other Details: RICKEY-Rufus x7yrs. S-Chance. Moved to [place] 2mo ago to be w/ GF. Number of Children: 1 current occupation: Unemployed secondary to disability Current gender identity: female Do you feel safe at home: Yes Do you feel safe in your relationship?: Yes Female Reproductive History Menstrual Duration of menses: 3-5 days (Average flow minimal dysmenorrhea) control method: none
--- NOTE | 2020-11-20 16:27 | PDOC.CMDIS ---
- If Service Date Differs Date of service: 11/20/20 Time of Service: 16:27 LACE Index Scoring Tool - Questions: Length of Stay (in days): 1 Acuity (Admit via E.D.?): Yes E.D. Visits: 4 - Answers: Total Score: 8 Risk of Readmission: Low Risk Care Management Discharge Reason for Hospitalization: Colitis Discharge Plan: Theory will return home with no new services. She will follow up with her community providers and transport with her boyfriend. Patient/Family Education Needs: Review of discharge instructions, diet, medications, activity, follow up plan, limitations, Ask Me Three
--- NOTE | 2020-11-20 17:11 | CHAPLAIN ---
Theory was sitting up in bed when I visited. She told me about what brought her to [facility] and she is hoping she'll be discharged later today (Which she was.) I explained my role and offered support.
== END 2020-11-20 14:21 | disposition home or self-care (01) ==
LOC: ER 07:33 → MS 08:24
PROVIDERS: Nurse Practitioner Family; Admitting Provider Family Medicine; Emergency Provider Student in an Organized Health Care Education/Training Program; PCP Physician Assistant Medical; Visit Provider Family Medicine
DX: A04.72 Enterocolitis due to Clostridium difficile, not specified as recurrent (principal); F31.9 Bipolar disorder, unspecified; G47.33 Obstructive sleep apnea (adult) (pediatric); K21.9 Gastro-esophageal reflux disease without esophagitis; F90.9 Attention-deficit hyperactivity disorder, unspecified type; G89.29 Other chronic pain; R10.13 Epigastric pain; I10 Essential (primary) hypertension; J45.909 Unspecified asthma, uncomplicated; N20.0 Calculus of kidney; G44.89 Other headache syndrome; F41.9 Anxiety disorder, unspecified; G25.0 Essential tremor; K29.70 Gastritis, unspecified, without bleeding; K58.9 Irritable bowel syndrome, unspecified; G40.909 Epilepsy, unspecified, not intractable, without status epilepticus; F17.210 Nicotine dependence, cigarettes, uncomplicated; Z20.822 Contact with and (suspected) exposure to COVID-19
CPT/HCPCS: 36415; 80048; 80053; 81025; 83690; 87493; 87635; 96361; 96365; 96375; 99285; 74177; 81003; 83605; 83735; 85025; 99217; 99220; G0378; J0744; J2270; J2405; J3475

== ENCOUNTER 2021-04-17 11:15 | Emergency (ER) | payer MEDICAID, SELFPAY ==
--- NOTE | 2021-04-17 11:16 | W.ED.GENAD ---
Discharge Plan Disposition Patient Disposition: HOME Condition: Good Discharge Details Clinical Impression: Abdominal pain, Ovarian cyst Primary Care Provider: Elizabeth Benton ED Provider: Jose Welch Home Meds and New Rx's Prescriptions: Continued amitriptyline 25 mg tablet 25 mg PO HS RF: 0 naloxone [Narcan] 4 mg/actuation spray,non-aerosol 1 spray LOGAN ONCE PRNRF: 0 Flovent HFA 44 mcg/actuation HFA aerosol inhaler 2 puff inhalation BID RF: 0 enalapril maleate 10 mg tablet 10 mg PO DAILY Qty: 90 RF: 3 spironolactone 25 mg tablet 25 mg PO BID Qty: 180 RF: 3 verapamil 120 mg tablet extended release 240 mg PO DAILY Qty: 90 RF: 3 metoprolol succinate 100 mg tablet extended release 24 hr 100 mg PO DAILY Qty: 90 RF: 3 chlorthalidone 25 mg tablet 25 mg PO DAILY Qty: 90 RF: 3 alprazolam [Xanax] 1 mg Tablet 1 mg PO BID RF: 0 oxycodone 5 mg tablet 10 mg PO 5X/DAY RF: 0 lamotrigine 150 mg tablet 200 mg PO HS RF: 0 pantoprazole 40 mg tablet,delayed release (DR/EC) 40 mg PO DAILY RF: 0 albuterol sulfate [ProAir HFA] 90 mcg/actuation HFA aerosol inhaler 2 puff INHALATION PRN PRNRF: 0 zolpidem 12.5 mg tablet,ext release multiphase 12.5 mg PO HS RF: 0 Discharge Instructions Instructions: Ovarian Cyst (ED), Abdominal Pain (ED) Additional Instructions: At this time your CAT scan shows evidence of of an ovarian cyst. This is likely the cause of your pain. Please follow-up closely with your obstetrics boom cat operator for repeat ultrasound as some of the stool in your abdomen got in the way the test today. Please take Tylenol and Motrin as needed for pain. If you notice any worsening of your symptoms, or any new symptoms such as vomiting, diarrhea, fever, chills, shortness of breath, chest pain, numbness, weakness, or fainting , please return immediately to the emergency department for reevaluation. Please follow up with your primary care provider as soon as possible for reassessment and reevaluation. As always, it was a pleasure participating in your medical care today. Referrals: Elizabeth Benton [Primary Care Provider] - Jen Poole MD [ [facility] STAFF PHYSICIAN] - Medical Decision Making This is a 41-year-old female with a past medical history of bipolar, colitis, previous kidney stone, ovarian cystectomy this past fall, umbilical hernia repair this past February performed in [facility], who presents today for evaluation of 2 weeks of left-sided abdominal pain. She describes it as achy and sharp pain that comes and goes. She denies any increased urinary frequency, hematuria, vaginal discharge. She denies any numbness or tingling. She denies any vomiting or diarrhea but does admit to nausea. She denies any other aggravating or relieving factors. She states that the pain is located focally around the left flank. She denies any chest pain, pleuritic chest pain, or shortness of breath. No other complaints at this time. No other modifying factors. Physical exam demonstrate mild left sided abdominal tenderness, moderate left-sided CVA tenderness on percussion. No right-sided tenderness. Differential includes colitis, kidney stone, or mass. We will get a CT scan, treat her pain, monitor closely and reassess 2:50 PM Laboratory work-up has returned, patient does demonstrate a mildly elevated white count 14, no bandemia. No fever. No tachycardia. Electrolytes stable, renal function at baseline. Urinalysis negative for infection, lipase normal. After rehydration pain medicines patient is actually feeling much better. She feels good and feels comfortable going home. CT scan shows evidence of unremarkable hernia, however she does have an enlarged left ovary which is likely compounded by cystic structure. Ultrasound was ordered but unfortunately because of stool burden they were not able to evaluate the ovary. However patient signs and symptoms are clinically inconsistent with ovarian torsion at this time. Repeat exam continues to show no evidence of an acute surgical abdomen whatsoever. Symptoms are inconsistent with tubo-ovarian abscess or clinical torsion. On reassessment patient's pain is gone and she feels comfortable going home. Patient will be discharged with close follow-up with OB. Recommend repeat outpatient ultrasound. Discussed red flags which to return. I have extensively reviewed the treatment plan and discharge instructions with the patient. I have addressed all patient concerns at this time. The patient was made aware of what symptoms to monitor for that would warrant a return to the emergency department. Discussed the plan with the patient, they demonstrate verbal understanding and agreement with our assessment and plan at this time. The documentation in this chart was dictated using [employer] dictation software. Please excuse any dictation errors. IMPRESSION: 1. Solitary fibroid the anterior myometrium measuring 19 x 17 x 14 millimeters. No other findings in the uterus. 2. Right ovary unremarkable. Left ovary is not seen. 3. No free fluid evident in the adnexal regions and cul-de-sac. IMPRESSION: 1. Compared to the prior CT scan of 11/19/2020 there is hepatomegaly and hepatic steatosis again noted and the gallbladder is again noted to be surgically absent. No dilatation of the biliary tree. 2. Again noted is evidence of anterior abdominal wall hernia repair. No evidence of recurrence hernia and no abnormal fluid collection in this region nor elsewhere in the abdomen and pelvis. No evidence of bowel obstruction 3. Appendix is surgically absent. 4. Slightly enlarged left ovary with exophytic structure which is probably cyst. This can be further studied with ultrasound exam. HPI General Date/Time Provider Initiated Documentation: 04/17/21 11:15. HPI Narrative: This is a 41-year-old female with a past medical history of bipolar, colitis, previous kidney stone, ovarian cystectomy this past fall, umbilical hernia repair this past February performed in [facility], who presents today for evaluation of 2 weeks of left-sided abdominal pain. She describes it as achy and sharp pain that comes and goes. She denies any increased urinary frequency, hematuria, vaginal discharge. She denies any numbness or tingling. She denies any vomiting or diarrhea but does admit to nausea. She denies any other aggravating or relieving factors. She states that the pain is located focally around the left flank. She denies any chest pain, pleuritic chest pain, or shortness of breath. No other complaints at this time. No other modifying factors Related Data Home Medications Medication Instructions Recorded Confirmed naloxone 4 mg/actuation nasal spray 1 spray LOGAN ONCE PRN 04/19/18 04/17/21 alprazolam [Xanax] 1 mg PO BID 07/17/18 04/17/21 amitriptyline 25 mg tablet 25 mg PO HS 04/18/20 04/17/21 albuterol sulfate [ProAir HFA] 2 puff INHALATION PRN PRN 05/14/20 04/17/21 pantoprazole 40 mg PO DAILY 05/14/20 04/17/21 zolpidem 12.5 mg PO HS 05/14/20 04/17/21 fluticasone propionate 44 2 puff INHALATION BID 06/21/20 04/17/21 mcg/actuation HFA aerosol inhaler oxycodone 10 mg PO 5X/DAY 11/19/20 04/17/21 lamotrigine 150 mg tablet 200 mg PO HS tab 12/07/20 04/17/21 enalapril maleate 10 mg tablet 10 mg PO DAILY #90 tab 12/17/20 04/17/21 metoprolol succinate 100 mg 100 mg PO DAILY #90 tab 12/17/20 04/17/21 tablet,extended release 24 hr spironolactone 25 mg tablet 25 mg PO BID #180 tab 12/17/20 04/17/21 verapamil 120 mg tablet,extended 240 mg PO DAILY #90 tab 12/17/20 04/17/21 release chlorthalidone 25 mg tablet 25 mg PO DAILY #90 tab 02/25/21 04/17/21 Previous Rx's Medication Instructions Recorded enalapril maleate 10 mg tablet 10 mg PO DAILY #90 tab 12/17/20 metoprolol succinate 100 mg 100 mg PO DAILY #90 tab 12/17/20 tablet,extended release 24 hr spironolactone 25 mg tablet 25 mg PO BID #180 tab 12/17/20 verapamil 120 mg tablet,extended 240 mg PO DAILY #90 tab 12/17/20 release chlorthalidone 25 mg tablet 25 mg PO DAILY #90 tab 02/25/21 Allergies Allergy/AdvReac Type Severity Reaction Status Date / Time labetalol Allergy Intermediate nausea and Verified 04/17/21 11:26 vomiting lisdexamfetamine Allergy Intermediate hypertensio Verified 04/17/21 11:26 [From Vyvanse] n cariprazine [From Vraylar] Allergy Unknown Verified 04/17/21 11:26 tamsulosin [From Flomax] Allergy light Verified 04/17/21 11:26 headed/dizzy prednisone AdvReac Intermediate It makes Verified 04/17/21 11:26 me feel weird codeine AdvReac Mild Nausea Verified 04/17/21 11:26 morphine AdvReac Mild Nausea Verified 04/17/21 11:26 tramadol HCl [From Ultram] AdvReac Mild Nausea Verified 04/17/21 11:26 tegaderm tape AdvReac Intermediate ariza my Uncoded 04/17/21 11:26 skin General JOEL: 3 Review of Systems All systems reviewed & are unremarkable except as noted in HPI and below PFSH All Active Problems (Updated 04/17/21 @ 14:46 by Jose Welch DO) Abdominal pain (Acute) Ovarian cyst (Acute) Colitis (Acute) ANN (obstructive sleep apnea) (Chronic) Borderline personality disorder (Acute) Bipolar 1 disorder (Chronic) Discharge planning issues (Acute) DVT prophylaxis (Acute) H/O ovarian cystectomy (Acute) 10/18/2020. Laparoscopic right ovarian cystectomy for persistent 4 cm right ovarian cyst. Abdominal pain (Acute) Constipation (Acute) Chronic GERD (Chronic) Acute diarrhea (Acute) Essential hypertension (Chronic) Chronic pain (Chronic) Bilateral kidney stones (Acute) Headache, chronic migraine without aura (Chronic) Chronic headache (Chronic) Medication overuse headache (Chronic) Psychogenic tremor (Chronic) Medical History Abdominal pain Active asthma ADD (attention deficit disorder) Adnexal mass Amenorrhea Amnesia ASCUS with positive high risk HPV 09/2020. Will f/u at [facility] for colposcopy after issue with RLQ pain is addressed. Asthma Atypical squamous cells of undetermined significance with positive high risk human papillomavirus Calculus of kidney and ureter Carpal tunnel syndrome Causalgia of left upper extremity Cervical disc disease Cervical disc disorder with radiculopathy Chest pain at rest pt. denies this Chronic wrist pain Cold sore Conversion disorder tremor, stutter, weakness CVA tenderness Dizziness Elevated fasting blood sugar Essential tremor Gastritis GERD (gastroesophageal reflux disease) History of urinary stone Carcamo sign present Human papilloma virus (HPV) DNA test positive Hydronephrosis IBS (irritable bowel syndrome) Insomnia Irritable bowel syndrome with diarrhea Kidney stones Knee pain Left-sided thoracic back pain Median nerve compression in left forearm Medication management Medication monitoring encounter Memory loss Migraines Neuralgia Nicotine dependence Numbness and tingling Pain in pelvis Post-cholecystectomy syndrome post casey diarrhea Preop examination Psychophysiologic disorder PTSD (post-traumatic stress disorder) Rectal bleeding Right arm weakness Right ureteral stone Seizure (~04/14/18) Seizure disorder Snoring Spasm of back muscles Upper respiratory infection pt. denies this Ureteral calculi Surgical History Carpal tunnel syndrome, left s/p left ECTR DOS: 01/23/20 H/O left knee surgery History of carpal tunnel surgery of left wrist History of colonoscopy (~07/09/20) Repair of umbilical hernia S/P appendectomy S/P cholecystectomy S/P knee surgery Family History Father Cerebral aneurysm Social History Smoking/Tobacco Use Status: Current every day Tobacco Type: cigarettes Smoking packs per day: 0.5 Smoking cigarettes per day: 10.0 Years smoked: 30 Smoking pack-years: 15.00 Smoking risk assessment performed?: Yes Alcohol Intake: never Drug use: Never Substance use type: does not use Household members: significant other and other Details: BF-Rufus x7yrs. S-Chance. Moved to [place] 2mo ago to be w/ GF. Number of Children: 1 current occupation: Unemployed secondary to disability Current gender identity: female Do you feel safe at home: Yes Do you feel safe in your relationship?: Yes Female Reproductive History Menstrual Duration of menses: 3-5 days (Average flow minimal dysmenorrhea) control method: none Exam Narrative Exam Narrative: 1.Const: Well-nourished, Well-developed, appearing stated age 2.Eyes: PERRL, no conjunctival injection, and symmetrical lids. 3.ENT: Atraumatic external nose and ears. Moist MM. Neck: Symmetric, trachea midline, No thyromegaly. 4.CVS: +S1/S2, No murmurs or gallops. Peripheral pulses 2+ and equal in all extremities. Brisk capillary refill in all extremities. 5.RESP: Unlabored respiratory effort. Clear to auscultation bilaterally. No wheezes rales or rhonchi 6.GI: Soft, nondistended, no guarding or rebound. Mild left lower and left mid quadrant abdominal tenderness, left CVA tenderness on percussion. Minimal referral of pain to the left side of the abdomen with left heel strike test. No pain or McBurney's point. Negative Hampton sign 7.MSK: Normocephalic/Atraumatic, Extremities w/o deformity or ttp No cyanosis or clubbing, Normal movement of all extremities 8.Skin: Warm, Dry. No rashes or lesions. 9.Neuro: machine tack puller II-XII grossly intact. Sensation grossly intact, no focal neurologic deficits. 10.Psych: (AAO) x3. Appropriate mood and affect
[2021-04-17 11:18] VITALS: BP 107/74; PULSE 86; RESP 18; TEMP 36.6; O2SAT 99
[2021-04-17 11:54] LABS: Bilirubin Negative (Negative); Blood Negative (Negative); Clarity Clear (Clear); Glucose Negative (Negative); Ketones Negative (Negative); Leukocyte Esterase Negative (Negative); Nitrite Negative (Negative); Specific Gravity 1.025 (1.005-1.025); Urobilinogen 0.2 EU/dL (Up TO 0.2); pH 5.5 (5-8)
[2021-04-17 11:54] LABS: Abs Immature Grans 0.11 10^3/uL (0.0-0.06); Absolute Eosinophil Count 0.44 10^3/uL (0.0-0.7); Absolute Lymphocyte Count 3.53 10^3/uL (1.2-3.4); Basophils % 0.5; HCT 43.2 % (36.0-46.0); HGB 13.8 g/dL (11.2-15.7); Immature Grans % 0.7; MCH 31.2 pg (27.0-33.0); MCHC 31.9 % (32.0-36.0); MCV 97.5 fL (80-95); MPV 9.3 fL (8.0-11.0); Monocytes % 5.2; Neutrophils % 66.6; Nucleated RBC 0 %; Platelet Count 384 10^3/uL (130-400); RBC 4.43 10^6/uL (3.93-5.22); RDW 13.2 % (11.7-14.6); RDW-SD 47.8 fL; WBC 14.72 10^3/uL (4.4-10.8)
[2021-04-17] MEDS: Normal Saline 1,000 ML 1000 ML IV (11:57)
[2021-04-17] MEDS: Ondansetron 4 MG/2 ML VIAL IVP ×2 (11:59→13:53)
--- NOTE | 2021-04-17 12:00 | DI.CT_ITS ---
Exam(s) CT ABDOMEN PELVIS WO EXAM: CT ABDOMEN PELVIS WO CLINICAL HISTORY: left sided abd and flank pain. TECHNIQUE: Imaging Protocol: Axial computed tomography images with coronal and sagittal reformatted images were created and reviewed CONTRAST MATERIAL: Intravenous: none Oral: None COMPARISON: CT CT ABDOMEN PELVIS W from 11/19/2020 FINDINGS: VISUALIZED LUNG BASES: No nodules nor pleural effusions evident. ABDOMEN: There is no ascites. LIVER: Hepatic steatosis and mild hepatomegaly again noted. There are no discrete focal hepatic lesi ons. GALLBLADDER/BILIARY: The gallbladder is again noted be surgically absent. CBD diameter is upper norm al. PANCREAS: No evidence of pancreatic mass nor dilatation of the pancreatic duct. SPLEEN: Spleen size is upper normal. No obvious splenic lesions. ADRENALS: There are no significant adrenal masses. KIDNEYS:Left kidney unremarkable. Mild streaking around the inferior pole the right kidney is unchan ged. There is no hydronephrosis nor hydroureter on either side.. ABDOMINAL AORTA: Abdominal aorta is not enlarged. LYMPH NODES: There is no retroperitoneal nor paraaortic adenopathy. ABDOMINAL WALL: There is evidence of previous anterior abdominal hernia repair. There is no new abno rmal collection in this region. No abnormal collection in the peritoneal cavity. GI: There is no evidence of bowel obstruction, free air, nor abscess. PELVIS: LYMPH NODES: There is no intrapelvic nor inguinal adenopathy. GI: The appendix is surgically absent..No evidence of sigmoid diverticulitis. URINARY BLADDER: No calculi nor obvious masses evident REPRODUCTIVE: Uterus is anteverted and normal size. Right ovary appears unremarkable. Left ovary is slightly prominent in size and contains a slightly exophytic structure which is probably a cyst mariana uring 1.6 x 1.5 cm. No free fluid. OSSEOUS: No significant osseous lesions. IMPRESSION: 1. Compared to the prior CT scan of 11/19/2020 there is hepatomegaly and hepatic steatosis again note d and the gallbladder is again noted to be surgically absent. No dilatation of the biliary tree. 2. Again noted is evidence of anterior abdominal wall hernia repair. No evidence of recurrence herni a and no abnormal fluid collection in this region nor elsewhere in the abdomen and pelvis. No eviden ce of bowel obstruction 3. Appendix is surgically absent. 4. Slightly enlarged left ovary with exophytic structure which is probably cyst. This can be furthe r studied with ultrasound exam. RADIATION DOSE DELIVERED: 1,187.99mGy.cm Total DLP DATA REPOSITORY: All CT scans at this facility are submitted to the National Radiology Data Registry (NRDR) Dose Index Registry (DIR) with the [employer] (ACR). RADIATION OPTIMIZATION: All CT scans at this facility use at least one of these dose optimization te chniques: automated exposure control; mA and/or kV adjustment per patient size (includes targeted exa ms where dose is matched to clinical indication); or iterative reconstruction.
[2021-04-17 12:02] LABS: Absolute Basophil Count 0.07 10^3/uL (0.0-0.2); Absolute Monocyte Count 0.77 10^3/uL (0.1-0.8)
[2021-04-17] MEDS: MORPHine 4 MG/ML SYR IVP ×2 (12:02→13:53)
[2021-04-17 12:06] LABS: ALT 34 U/L (14-59); AST 18 U/L (15-37); Albumin 3.5 g/dL (3.4-5.0); Alkaline Phosphatase 113 U/L (46-116); Anion Gap 9.5 mmol/L (3-11); BUN 25 mg/dL (7-18); Bilirubin, Total 0.3 mg/dL (0.2-1.0); CO2 26.5 mmol/L (21.0-32.0); CREATININE 1.6 mg/dL (0.55-1.02); Chloride 98 mmol/L (98-107); Estimated GFR 35.18 (mL/min/1.73m2); Glucose 130 mg/dL (74-106); Lipase 95 U/L (73-393); Potassium 3.6 mmol/L (3.5-5.1); Sodium 134 mmol/L (136-145); Total Protein 8.1 g/dL (6.4-8.2)
[2021-04-17 12:07] VITALS: BP 103/67; PULSE 80; RESP 12; TEMP 36.5; O2SAT 97
--- NOTE | 2021-04-17 13:30 | DI.US_ITS ---
Exam(s) US PELVIS TRANSVAGINAL EXAM: US PELVIS TRANSVAGINAL CLINICAL HISTORY: left abd pain, ovarian cyst, hx of R ov mass TECHNIQUE: Ultrasound of the pelvis was performed both transabdominal and transvaginal. COMPARISON: No exams were available for comparison FINDINGS: UTERUS: Nongravid and anteverted, measuring 7.3 cm length by 4.3 cm AP x 4.5 cm wide. There appears to be an anterior fibroid close to the level the fundus which measures 1.9 x 1.7 x 1.4 cm. Endometrial thickness measures 9 mm. There is no fluid in the endometrial canal. CERVIX: There are no obvious nabothian cysts. RIGHT OVARY: Measures 2.7 x 2.3 x 1.9 cm No significant cysts nor masses evident in the right ovary. LEFT OVARY: Not able to be seen on today's study CUL-DE-SAC: No free fluid evident. IMPRESSION: 1. Solitary fibroid the anterior myometrium measuring 19 x 17 x 14 millimeters. No other findings in the uterus. 2. Right ovary unremarkable. Left ovary is not seen. 3. No free fluid evident in the adnexal regions and cul-de-sac. DATA REPOSITORY:
[2021-04-17] MEDS: Ketorolac 15 MG/ML VIAL IVP (13:52)
[2021-04-17 14:30] VITALS: BP 123/67; PULSE 80; RESP 12; TEMP 36.5; O2SAT 97
[2021-04-17 15:07] VITALS: BP 123/67; PULSE 80; RESP 12; TEMP 36.5
== END 2021-04-17 14:54 | disposition home or self-care (01) ==
PROVIDERS: Emergency Provider Student in an Organized Health Care Education/Training Program; PCP Physician Assistant Medical
DX: R10.9 Unspecified abdominal pain (principal); N83.202 Unspecified ovarian cyst, left side
CPT/HCPCS: 36415; 80053; 81025; 83690; 96361; 96374; 96375; 96376; 99284; 74176; 76830; 76856; 81003; 85025; J1885; J2270; J2405

== ENCOUNTER 2021-06-04 09:15 | Emergency (ER) | payer MEDICAID, SELFPAY ==
[2021-06-04 09:22] VITALS: BP 121/81; PULSE 88; RESP 18; TEMP 36.4; O2SAT 97
--- NOTE | 2021-06-04 09:30 | DI.CT_ITS ---
Exam(s) CT ABDOMEN PELVIS W EXAM: CT ABDOMEN PELVIS W CLINICAL HISTORY: guarding, abdominal pain, diarrhea, recent abx, hx TECHNIQUE: Imaging Protocol: Axial computed tomography images with coronal and sagittal reformatted images were created and reviewed CONTRAST MATERIAL: Intravenous: Omnipaque 350 Contrast volume:100 mL Oral: No COMPARISON: CT ABD PELVIS WITH CONTRAST from 11/20/[address] ABDOMEN PELVIS W from 11/01/[address] RENAL COLIC WO from 05/02/[address] RENAL COLIC WO from 09/11/[address] ABDOMEN PELVIS WO from 04/17/2021 FINDINGS: ABDOMEN: Lung Bases: Normal where visualized. Liver: There is diffuse decreased attenuation of the liver consistent with fatty infiltration. The li gil measures 22 cm long. There is a 2.1 x 1.4 cm mass in the right lobe of the liver which is isodens e to the aorta. This has been present on prior examinations and is stable. This may represent an area of focal fatty sparing or hemangioma. Portal, Superior Mesenteric, and Splenic Veins: Unremarkable. Gallbladder and Biliary Tract: Status post cholecystectomy. No biliary ductal dilatation. Pancreas: Normal density, no abnormal calcifications or inflammatory process. Spleen: Normal. Adrenals: There is a stable 1 cm nodule in the left adrenal gland. No follow-up is recommended. The r ight adrenal gland is unremarkable. Kidneys: Normal size, contour and axis. No radiodense stones or obstructive uropathy. No masses seen. Abdominal Aorta: Abdominal portion non-dilated. Bowel: No obstruction or bowel wall thickening. Status post appendectomy. Peritoneal Cavity: No ascites, collection or mesenteric inflammatory response. No free air. Lymph Nodes: Within normal limits. Bones: Within normal limits for the patient's age. Soft Tissues: Unremarkable. PELVIS: Bladder: Symmetric distention, no gross wall thickening. Reproductive Organs: Unremarkable as visualized. Lymph Nodes: Within normal limits. Bones: Within normal limits for the patient's age. IMPRESSION: 1. No acute abdominal or pelvic process. 2. Results of this exam have been verbally communicated with provider. RADIATION DOSE DELIVERED: 1,142.72mGy.cm Total DLP DATA REPOSITORY: All CT scans at this facility are submitted to the National Radiology Data Registry (NRDR) Dose Index Registry (DIR) with the [employer] (ACR). RADIATION OPTIMIZATION: All CT scans at this facility use at least one of these dose optimization te chniques: automated exposure control; mA and/or kV adjustment per patient size (includes targeted exa ms where dose is matched to clinical indication); or iterative reconstruction.
[2021-06-04] MEDS: fentaNYL 100 MCG/2 ML VIAL 50 MCG IVP (10:02)
[2021-06-04] MEDS: Lactated Ringers 1,000 ML 1000 ML IV (10:03)
[2021-06-04] MEDS: Ondansetron 4 MG/2 ML VIAL IVP (10:03)
[2021-06-04 10:15] LABS: Abs Immature Grans 0.07 10^3/uL (0.0-0.06); Absolute Basophil Count 0.08 10^3/uL (0.0-0.2); Absolute Eosinophil Count 0.47 10^3/uL (0.0-0.7); Absolute Lymphocyte Count 2.94 10^3/uL (1.2-3.4); Absolute Monocyte Count 0.77 10^3/uL (0.1-0.8); Basophils % 0.7; Eosinophils % 4.3; HCT 45.1 % (36.0-46.0); HGB 14.6 g/dL (11.2-15.7); Immature Grans % 0.6; Lymphocytes % 27.1; MCH 31.3 pg (27.0-33.0); MCHC 32.4 % (32.0-36.0); MCV 96.6 fL (80-95); MPV 9.8 fL (8.0-11.0); Monocytes % 7.1; Neutrophils % 60.2; Nucleated RBC 0 %; Platelet Count 384 10^3/uL (130-400); RBC 4.67 10^6/uL (3.93-5.22); RDW 12.6 % (11.7-14.6); RDW-SD 45.4 fL; WBC 10.85 10^3/uL (4.4-10.8)
[2021-06-04 10:16] LABS: Absolute Neutrophil Count 6.53 10^3/uL (1.2-6.7)
[2021-06-04 10:28] LABS: Bilirubin Negative (Negative); Blood Negative (Negative); Clarity Clear (Clear); Glucose Negative (Negative); Ketones Negative (Negative); Leukocyte Esterase Negative (Negative); Nitrite Negative (Negative); Specific Gravity >= 1.030 (1.005-1.025); Urobilinogen 0.2 EU/dL (Up TO 0.2); pH 5.5 (5-8)
[2021-06-04 10:28] LABS: ALT 34 U/L (14-59); AST 28 U/L (15-37); Albumin 3.7 g/dL (3.4-5.0); Alkaline Phosphatase 123 U/L (46-116); BUN 20 mg/dL (7-18); Bilirubin, Total 0.2 mg/dL (0.2-1.0); CREATININE 1.7 mg/dL (0.55-1.02); Calcium 9.3 mg/dL (8.5-10.1); Chloride 100 mmol/L (98-107); Glucose 146 mg/dL (74-106); Lipase 101 U/L (73-393); Magnesium 1.7 mg/dL (1.8-2.4); Potassium 3.7 mmol/L (3.5-5.1); Sodium 137 mmol/L (136-145); Total Protein 8.5 g/dL (6.4-8.2)
[2021-06-04 10:37] LABS: Bacteria Rare HPF (Negative); C & S Indicated? No/Sq. Contamination; Casts 0-2 Hyaline LPF (Negative); Crystals Negative HPF (Negative); Epithelial Cells Moderate HPF (Negative); Mucus Negative (Negative); RBC Negative HPF (0-2); WBC Negative HPF (0-5)
[2021-06-04] MEDS: Omnipaque 350 MG/ML 100 ML BTL IJ (10:46)
[2021-06-04 11:00] LABS: C Diff PCR Positive (Negative)
--- NOTE | 2021-06-04 11:35 | W.ED.GENAD ---
Discharge Plan Disposition Patient Disposition: HOME Condition: Stable Discharge Details Clinical Impression: Abdominal pain, Clostridium difficile colitis Primary Care Provider: Elizabeth Benton ED Provider: Stefania Baeza Home Meds and New Rx's Prescriptions: New vancomycin 250 mg capsule 500 mg PO QID 10 Days Qty: 80 0RF Saccharomyces boulardii [Florastor] 250 mg capsule 250 mg PO BID Qty: 14 0RF vancomycin 125 mg capsule 125 mg PO QID Qty: 40 0RF ondansetron HCl 4 mg tablet 4 mg PO DAILY PRN4 Days Qty: 10 0RF Continued amitriptyline 25 mg tablet 25 mg PO HS 0RF metronidazole 500 mg tablet 500 mg PO BID Qty: 28 0RF ciprofloxacin HCl [Cipro] 500 mg tablet 500 mg PO BID Qty: 28 0RF naloxone [Narcan] 4 mg/actuation spray,non-aerosol 1 spray LOGAN ONCE PRN0RF Flovent HFA 44 mcg/actuation HFA aerosol inhaler 2 puff inhalation BID 0RF Rx Instructions: administer with spacer enalapril maleate 10 mg tablet 10 mg PO DAILY Qty: 90 3RF spironolactone 25 mg tablet 25 mg PO BID Qty: 180 3RF verapamil 120 mg tablet extended release 240 mg PO DAILY Qty: 90 3RF metoprolol succinate 100 mg tablet extended release 24 hr 100 mg PO DAILY Qty: 90 3RF chlorthalidone 25 mg tablet 25 mg PO DAILY Qty: 90 3RF alprazolam [Xanax] 1 mg Tablet 1 mg PO BID 0RF oxycodone 5 mg tablet 10 mg PO 5X/DAY 0RF Label Comments: TAKE 2 TABLETS BY MOUTH FIVE TIMES DAILY lamotrigine 150 mg tablet 200 mg PO HS 0RF Label Comments: TAKE 1 TABLET BY MOUTH EVERY DAY AT BEDTIME pantoprazole 40 mg tablet,delayed release (DR/EC) 40 mg PO DAILY 0RF Label Comments: TAKE 1 TABLET BY MOUTH ONCE DAILY albuterol sulfate [ProAir HFA] 90 mcg/actuation HFA aerosol inhaler 2 puff INHALATION PRN PRN0RF Label Comments: INL 2 PFS PO Q 4 H PRN zolpidem 12.5 mg tablet,ext release multiphase 12.5 mg PO HS 0RF Label Comments: TAKE 1 TABLET BY MOUTH EVERY DAY AT BEDTIME Discharge Instructions Instructions: Abdominal Pain (ED) Additional Instructions: take antibiotics as prescribed florastor daily return earlier with new or worsening complaints recheck with pcp wash your hands with soap and water and try to only utilize one toilet and clean frequently as this is very contagious Referrals: Elizabeth Benton [Primary Care Provider] - Medical Decision Making Patient C. difficile positive PCR with diarrhea and abdominal pain Per radiology interpretation in my review, patient does not have acute abdominal abnormality, specifically no evidence of toxic megacolon Placed on vancomycin 125 4 times daily for C. difficile colitis and Florastor Infection control measures reviewed Encouraged to follow-up with PCP in the very close outpatient setting Able to tolerate p.o. at time of fall Patient has as needed Percocet medication as needed at home which is a chronic med for her Placed on Zofran for nausea Return precautions discussed and patient expressed understanding We will supplement magnesium And have her blood sugar rechecked by PCP Medical Records Medical records reviewed: Yes I reviewed the patient's medical records. Lab Data Lab results reviewed: Yes I reviewed the patient's lab results. HPI General Date/Time Provider Initiated Documentation: 06/04/21 09:29. HPI Narrative: this 41-year-old female presents with diarrhea and abdominal pain for the past week and a half. She just finished a course of Cipro and Flagyl for reported diverticulitis a month ago. She denies any vomiting but has been nauseous. She denies any chest pain or shortness of breath. Denies chance of . She has any fever or chills. She states that her abdominal pain is significantly worsened in the past week. She denies any urinary complaints. She denies any chance of . Related Data Home Medications Medication Instructions Recorded Confirmed naloxone 4 mg/actuation nasal 1 spray LOGAN ONCE PRN 04/19/18 06/04/21 spray (Narcan) alprazolam 1 mg tablet (Xanax) 1 mg PO BID 07/17/18 06/04/21 amitriptyline 25 mg tablet 25 mg PO HS 04/18/20 06/04/21 albuterol sulfate 90 mcg/actuation 2 puff INHALATION PRN PRN 05/14/20 06/04/21 aerosol inhaler (ProAir HFA) pantoprazole 40 mg tablet,delayed 40 mg PO DAILY 05/14/20 06/04/21 release zolpidem 12.5 mg tablet,extended 12.5 mg PO HS 05/14/20 06/04/21 release,multiphase fluticasone propionate 44 2 puff INHALATION BID 06/21/20 06/04/21 mcg/actuation HFA aerosol inhaler (Flovent HFA) oxycodone 5 mg tablet 10 mg PO 5X/DAY 11/19/20 06/04/21 lamotrigine 150 mg tablet 200 mg PO HS tab 12/07/20 06/04/21 enalapril maleate 10 mg tablet 10 mg PO DAILY #90 tab 12/17/20 06/04/21 metoprolol succinate 100 mg 100 mg PO DAILY #90 tab 12/17/20 06/04/21 tablet,extended release 24 hr spironolactone 25 mg tablet 25 mg PO BID #180 tab 12/17/20 06/04/21 verapamil 120 mg tablet,extended 240 mg PO DAILY #90 tab 12/17/20 06/04/21 release chlorthalidone 25 mg tablet 25 mg PO DAILY #90 tab 02/25/21 06/04/21 ciprofloxacin HCl 500 mg tablet 500 mg PO BID #28 tab 05/01/21 06/04/21 (Cipro) metronidazole 500 mg tablet 500 mg PO BID #28 tab 05/01/21 06/04/21 Saccharomyces boulardii 250 mg 250 mg PO BID #14 cap 06/04/21 capsule (Florastor) ondansetron HCl 4 mg tablet 4 mg PO DAILY PRN 4 Days #10 tab 06/04/21 vancomycin 125 mg capsule 125 mg PO QID #40 cap 06/04/21 vancomycin 250 mg capsule 500 mg PO QID 10 Days #80 cap 06/04/21 Previous Rx's Medication Instructions Recorded enalapril maleate 10 mg tablet 10 mg PO DAILY #90 tab 12/17/20 metoprolol succinate 100 mg 100 mg PO DAILY #90 tab 12/17/20 tablet,extended release 24 hr spironolactone 25 mg tablet 25 mg PO BID #180 tab 12/17/20 verapamil 120 mg tablet,extended 240 mg PO DAILY #90 tab 12/17/20 release chlorthalidone 25 mg tablet 25 mg PO DAILY #90 tab 02/25/21 ciprofloxacin HCl 500 mg tablet 500 mg PO BID #28 tab 05/01/21 (Cipro) metronidazole 500 mg tablet 500 mg PO BID #28 tab 05/01/21 Saccharomyces boulardii 250 mg 250 mg PO BID #14 cap 06/04/21 capsule (Florastor) ondansetron HCl 4 mg tablet 4 mg PO DAILY PRN 4 Days #10 tab 06/04/21 vancomycin 125 mg capsule 125 mg PO QID #40 cap 06/04/21 vancomycin 250 mg capsule 500 mg PO QID 10 Days #80 cap 06/04/21 Allergies Allergy/AdvReac Type Severity Reaction Status Date / Time labetalol Allergy Intermediate nausea and Verified 06/04/21 09:27 vomiting lisdexamfetamine Allergy Intermediate hypertensio Verified 06/04/21 09:27 [From Vyvanse] n cariprazine [From Vraylar] Allergy Unknown Verified 06/04/21 09:27 tamsulosin [From Flomax] Allergy light Verified 06/04/21 09:27 headed/dizzy prednisone AdvReac Intermediate It makes Verified 06/04/21 09:27 me feel weird codeine AdvReac Mild Nausea Verified 06/04/21 09:27 morphine AdvReac Mild Nausea Verified 06/04/21 09:27 tramadol HCl [From Ultram] AdvReac Mild Nausea Verified 06/04/21 09:27 tegaderm tape AdvReac Intermediate ariza my Uncoded 06/04/21 09:27 skin General Stated Complaint: Nausea/Vomit/Diar JOEL: 3 Review of Systems All systems reviewed & are unremarkable except as noted in HPI and below PFSH All Active Problems (Updated 06/04/21 @ 11:46 by JO Dennis) Clostridium difficile colitis (Acute) ASCUS with positive high risk HPV (Acute) 09/2020. Patient needs colposcopy Colitis (Acute) ANN (obstructive sleep apnea) (Chronic) Borderline personality disorder (Acute) Bipolar 1 disorder (Chronic) Discharge planning issues (Acute) DVT prophylaxis (Acute) H/O ovarian cystectomy (Acute) 10/18/2020. Laparoscopic right ovarian cystectomy for persistent 4 cm right ovarian cyst. Abdominal pain (Acute) 04/2021. L>R side. Normal CT & u/s of abdomen and pelvis. 05/01/21. Rx Cipro and Flagyl times 2W Constipation (Acute) Chronic GERD (Chronic) Acute diarrhea (Acute) Essential hypertension (Chronic) Chronic pain (Chronic) Bilateral kidney stones (Acute) Headache, chronic migraine without aura (Chronic) Chronic headache (Chronic) Medication overuse headache (Chronic) Psychogenic tremor (Chronic) Medical History Abdominal pain Active asthma ADD (attention deficit disorder) Adnexal mass Amenorrhea Amnesia ASCUS with positive high risk HPV 09/2020. Will f/u at [facility] for colposcopy after issue with RLQ pain is addressed. Asthma Atypical squamous cells of undetermined significance with positive high risk human papillomavirus Calculus of kidney and ureter Carpal tunnel syndrome Causalgia of left upper extremity Cervical disc disease Cervical disc disorder with radiculopathy Chest pain at rest pt. denies this Chronic wrist pain Cold sore Conversion disorder tremor, stutter, weakness CVA tenderness Dizziness Elevated fasting blood sugar Essential tremor Gastritis GERD (gastroesophageal reflux disease) History of urinary stone Carcamo sign present Human papilloma virus (HPV) DNA test positive Hydronephrosis IBS (irritable bowel syndrome) Insomnia Irritable bowel syndrome with diarrhea Kidney stones Knee pain Left-sided thoracic back pain Median nerve compression in left forearm Medication management Medication monitoring encounter Memory loss Migraines Neuralgia Nicotine dependence Numbness and tingling Pain in pelvis Post-cholecystectomy syndrome post casey diarrhea Preop examination Psychophysiologic disorder PTSD (post-traumatic stress disorder) Rectal bleeding Right arm weakness Right ureteral stone Seizure (~04/14/18) Seizure disorder Snoring Spasm of back muscles Upper respiratory infection pt. denies this Ureteral calculi Surgical History Carpal tunnel syndrome, left s/p left ECTR DOS: 01/23/20 H/O left knee surgery History of carpal tunnel surgery of left wrist History of colonoscopy (~07/09/20) Repair of umbilical hernia S/P appendectomy S/P cholecystectomy S/P knee surgery Family History Father Cerebral aneurysm Social History Smoking/Tobacco Use Status: Current every day Tobacco Type: cigarettes Smoking packs per day: 0.5 Smoking cigarettes per day: 10.0 Years smoked: 30 Smoking pack-years: 15.00 Smoking risk assessment performed?: Yes Alcohol Intake: never Drug use: Never Substance use type: does not use Household members: significant other and other Details: BF-Rufus x7yrs. S-Chance. Moved to [place] 2mo ago to be w/ GF. Number of Children: 1 current occupation: Unemployed secondary to disability Current gender identity: female Do you feel safe at home: Yes Do you feel safe in your relationship?: Yes Female Reproductive History Menstrual Duration of menses: 3-5 days (Average flow minimal dysmenorrhea) control method: none Exam Const General: cooperative and no acute distress HENMT Mouth: oral mucosae normal Eyes Sclera: sclerae normal Chest Chest: normal inspection of the chest Resp Effort & Inspection: normal respiratory effort Cardio Rate: regular rate GI Other: Diffuse abdominal tenderness on exam, no rebound tenderness. Skin General skin exam: no rashes or lesions noted Neuro General: patient alert and patient oriented x3 Extrem Other: Distal pulses intact Course Vital Signs Vital signs: Vital Signs Temperature 36.4 C L 06/04/21 09:22 Pulse 88 06/04/21 09:22 Respiratory Rate 18 06/04/21 09:22 Blood Pressure 121/81 06/04/21 09:22 Pulse Oximetry 97 06/04/21 09:22 Temperature 36.4 C L 06/04/21 09:22 Temperature Source Temporal Artery Scan 06/04/21 09:22 Pulse 88 06/04/21 09:22 Respiratory Rate 18 06/04/21 09:22 Respiratory Effort Non-Labored 06/04/21 09:26 Blood Pressure 121/81 06/04/21 09:22 Blood Pressure Position Sitting 06/04/21 09:22 Pulse Oximetry 97 06/04/21 09:22 Oxygen Delivery Method Room Air 06/04/21 09:22 Oxygen Flow Rate 0 06/04/21 09:22 Pain Level 9 06/04/21 10:02 Lab/Test Results Lab/Test Results: Laboratory Tests Range/Units 06/04/21 06/04/21 06/04/21 09:36 10:02 10:02 WBC (4.4-10.8) 10^3/uL 10.85 H RBC (3.93-5.22) 10^6/uL 4.67 Hgb (11.2-15.7) g/dL 14.6 Hct (36.0-46.0) % 45.1 MCV (80-95) fL 96.6 H MCH (27.0-33.0) pg 31.3 MCHC (32.0-36.0) % 32.4 RDW (11.7-14.6) % 12.6 Plt Count (130-400) 10^3/uL 384 MPV (8.0-11.0) fL 9.8 Immature Gran % 0.6 Neutrophils % 60.2 Lymphocytes % 27.1 Monocytes % 7.1 Eosinophils % 4.3 Basophils % 0.7 Nucleated RBC % % 0 Absolute Neutrophils (1.2-6.7) 10^3/uL 6.53 Absolute Lymphocytes (1.2-3.4) 10^3/uL 2.94 Absolute Monocytes (0.1-0.8) 10^3/uL 0.77 Absolute Eosinophils (0.0-0.7) 10^3/uL 0.47 Absolute Basophils (0.0-0.2) 10^3/uL 0.08 Sodium (136-145) mmol/L 137 Potassium (3.5-5.1) mmol/L 3.7 Chloride (98-107) mmol/L 100 Carbon Dioxide (21.0-32.0) mmol/L 25.0 Anion Gap (3-11) mmol/L 12.0 H BUN (7-18) mg/dL 20 H Creatinine (0.55-1.02) mg/dL 1.7 H Estimated GFR/1.73 m2 (mL/min/1.73m2) 32.80 Glucose (74-106) mg/dL 146 H Calcium (8.5-10.1) mg/dL 9.3 Magnesium (1.8-2.4) mg/dL 1.7 L Total Bilirubin (0.2-1.0) mg/dL 0.2 AST (15-37) U/L 28 ALT (14-59) U/L 34 Alkaline Phosphatase (46-116) U/L 123 H Total Protein (6.4-8.2) g/dL 8.5 H Albumin (3.4-5.0) g/dL 3.7 Lipase (73-393) U/L 101 Urine Color (Yellow) Urine Clarity (Clear) Urine pH (5-8) Ur Specific [place] (1.005-1.025) Urine Protein (Negative) mg/dL Urine Ketones (Negative) mg/dL Urine Blood (Negative) Urine Nitrite (Negative) Urine Bilirubin (Negative) Urine Urobilinogen (Up TO 0.2) EU/dL Ur Leukocyte Esterase (Negative) Urine RBC (0-2) HPF Urine WBC (0-5) HPF Ur Epithelial Cells (Negative) HPF Urine Crystals (Negative) HPF Urine Bacteria (Negative) HPF Urine Casts (Negative) LPF Urine Mucus (Negative) Ur Culture Indicated? Urine Glucose (Negative) mg/dL Stl C.difficile Tox PCR (Negative) Positive A Range/Units 06/04/21 10:17 WBC (4.4-10.8) 10^3/uL RBC (3.93-5.22) 10^6/uL Hgb (11.2-15.7) g/dL Hct (36.0-46.0) % MCV (80-95) fL MCH (27.0-33.0) pg MCHC (32.0-36.0) % RDW (11.7-14.6) % Plt Count (130-400) 10^3/uL MPV (8.0-11.0) fL Immature Gran % Neutrophils % Lymphocytes % Monocytes % Eosinophils % Basophils % Nucleated RBC % % Absolute Neutrophils (1.2-6.7) 10^3/uL Absolute Lymphocytes (1.2-3.4) 10^3/uL Absolute Monocytes (0.1-0.8) 10^3/uL Absolute Eosinophils (0.0-0.7) 10^3/uL Absolute Basophils (0.0-0.2) 10^3/uL Sodium (136-145) mmol/L Potassium (3.5-5.1) mmol/L Chloride (98-107) mmol/L Carbon Dioxide (21.0-32.0) mmol/L Anion Gap (3-11) mmol/L BUN (7-18) mg/dL Creatinine (0.55-1.02) mg/dL Estimated GFR/1.73 m2 (mL/min/1.73m2) Glucose (74-106) mg/dL Calcium (8.5-10.1) mg/dL Magnesium (1.8-2.4) mg/dL Total Bilirubin (0.2-1.0) mg/dL AST (15-37) U/L ALT (14-59) U/L Alkaline Phosphatase (46-116) U/L Total Protein (6.4-8.2) g/dL Albumin (3.4-5.0) g/dL Lipase (73-393) U/L Urine Color (Yellow) Yellow Urine Clarity (Clear) Clear Urine pH (5-8) 5.5 Ur Specific [place] (1.005-1.025) >= 1.030 H Urine Protein (Negative) mg/dL Trace H Urine Ketones (Negative) mg/dL Negative Urine Blood (Negative) Negative Urine Nitrite (Negative) Negative Urine Bilirubin (Negative) Negative Urine Urobilinogen (Up TO 0.2) EU/dL 0.2 Ur Leukocyte Esterase (Negative) Negative Urine RBC (0-2) HPF Negative Urine WBC (0-5) HPF Negative Ur Epithelial Cells (Negative) HPF Moderate Urine Crystals (Negative) HPF Negative Urine Bacteria (Negative) HPF Rare Urine Casts (Negative) LPF 0-2 Hyaline Urine Mucus (Negative) Negative Ur Culture Indicated? No/Sq. Contamination Urine Glucose (Negative) mg/dL Negative Stl C.difficile Tox PCR (Negative)
[2021-06-04] MEDS: Vancomycin 125 MG CAP PO (11:59)
[2021-06-04 23:15] LABS: Campylobacter PCR Negative (Negative); Salmonella PCR Negative (Negative); Shiga Toxin PCR Negative (Negative); Shigella/Enteroinvasive Ecoli Negative (Negative)
== END 2021-06-04 11:46 | disposition home or self-care (01) ==
PROVIDERS: Emergency Provider Physician Assistant; PCP Physician Assistant Medical
DX: A04.72 Enterocolitis due to Clostridium difficile, not specified as recurrent (principal); R10.9 Unspecified abdominal pain
CPT/HCPCS: 36415; 80053; 83690; 87493; 87505; 96361; 96374; 96375; 99285; 74177; 81003; 81015; 83735; 85025; 99284; J2405; J3010; J3490

== ENCOUNTER 2021-07-16 22:51 | Outpatient (REF) | payer MEDICAID, SELFPAY ==
[2021-07-17 09:56] LABS: C Diff PCR Positive (Negative)
== END 2021-07-16 22:52 | disposition home or self-care (01) ==
LOC: LBN 22:51
PROVIDERS: PCP Physician Assistant Medical; Visit Provider Physician Assistant Medical
DX: R19.7 Diarrhea, unspecified (principal)
CPT/HCPCS: 87493

== ENCOUNTER 2021-08-13 13:04 | Outpatient (REF) | payer MEDICAID, SELFPAY ==
[2021-08-17 17:04] LABS: Calprotectin <50.0 mcg/g
== END 2021-08-13 13:05 | disposition home or self-care (01) ==
LOC: LBN 13:04
PROVIDERS: PCP Physician Assistant Medical; Visit Provider Nurse Practitioner Adult Health
DX: K52.89 Other specified noninfective gastroenteritis and colitis (principal)
CPT/HCPCS: 87493; 83993

== ENCOUNTER 2021-09-30 09:26 | Emergency (ER) | payer MEDICAID, SELFPAY ==
[2021-09-30 09:29] VITALS: BP 128/83; PULSE 108; TEMP 36.8; O2SAT 98
[2021-09-30 09:50] LABS: Bilirubin Negative (Negative); Blood Negative (Negative); Clarity Clear (Clear); Glucose Negative (Negative); Ketones Negative (Negative); Leukocyte Esterase Negative (Negative); Nitrite Negative (Negative); Specific Gravity 1.025 (1.005-1.025); Urobilinogen 0.2 EU/dL (Up TO 0.2); pH 5.5 (5-8)
--- NOTE | 2021-09-30 09:57 | PDOC.ERCMPRO ---
- If Service Date Differs Date of service: 09/30/21 Time of Service: 09:58 Care Management Progress Note SBIRT screen: BNI nicotine daily use. Pt reports hx of anxiety disorder and states she is in tx currently with medication. Pt reports minimal axiety symptoms today and was encouraged to continue tx.
--- NOTE | 2021-09-30 10:13 | W.ED.GENAD ---
Discharge Plan Disposition Patient Disposition: HOME Condition: Improving Discharge Details Clinical Impression: Hemorrhagic cyst of left ovary Primary Care Provider: Elizabeth Benton ED Provider: Dk Cowan Home Meds and New Rx's Prescriptions: Continued amitriptyline 25 mg tablet 25 mg PO HS naloxone [Narcan] 4 mg/actuation spray,non-aerosol 1 spray LOGAN ONCE PRN fluticasone propionate [Flovent HFA] 44 mcg/actuation HFA aerosol inhaler 2 puff inhalation BID Rx Instructions: administer with spacer enalapril maleate 10 mg tablet 10 mg PO DAILY Qty: 90 3RF spironolactone 25 mg tablet 25 mg PO BID Qty: 180 3RF metoprolol succinate 100 mg tablet extended release 24 hr 100 mg PO DAILY Qty: 90 3RF chlorthalidone 25 mg tablet 25 mg PO DAILY Qty: 90 3RF verapamil 120 mg tablet extended release 240 mg PO DAILY Qty: 180 3RF alprazolam [Xanax] 1 mg Tablet 1 mg PO BID oxycodone 5 mg tablet 10 mg PO 5X/DAY Label Comments: TAKE 2 TABLETS BY MOUTH FIVE TIMES DAILY lamotrigine 150 mg tablet 200 mg PO HS Label Comments: TAKE 1 TABLET BY MOUTH EVERY DAY AT BEDTIME Saccharomyces boulardii [Florastor] 250 mg capsule 250 mg PO BID Qty: 14 0RF pantoprazole 40 mg tablet,delayed release (DR/EC) 40 mg PO DAILY Label Comments: TAKE 1 TABLET BY MOUTH ONCE DAILY albuterol sulfate [ProAir HFA] 90 mcg/actuation HFA aerosol inhaler 2 puff INHALATION PRN PRN Label Comments: INL 2 PFS PO Q 4 H PRN zolpidem 12.5 mg tablet,ext release multiphase 12.5 mg PO HS Label Comments: TAKE 1 TABLET BY MOUTH EVERY DAY AT BEDTIME Discharge Instructions Instructions: Ovarian Cyst (ED) Additional Instructions: Your work-up today reveals a left-sided hemorrhagic ovarian cyst. Please continue taking your medication as directed, you are already prescribed oxycodone, you may add on [id number] anti-inflammatory medication. Please watch for new or worsening symptoms and return to the ER for any concerns. I would like you to attempt to be seen by your [facility] team sooner than the of next month if at all possible, otherwise contact your primary care provider to discuss your ER visit and need for outpatient reevaluation Medical Decision Making This is a 41-year-old female with past medical history of colitis, borderline personality disorder, bipolar disorder, ovarian cyst, hypertension, bilateral renal stones, presenting for 3-week history of left flank pain. She reports this feels somewhat similar to her kidney stone in the past. She denies any anterior abdominal pain, vomiting, dysuria, hematuria. Does report mild nausea occasionally. Clinically she appears well, nontoxic. Given the presentation I believe obtaining urinalysis, IV access, routine screening laboratory values and likely CT imaging would be reasonable for further evaluation of her symptoms. We will provide IV fluid and Toradol for discomfort. Laboratory values reveal mild nonspecific leukocytosis of 13.4, no evidence of anemia, platelet count appropriate at 335. Electrolytes unremarkable, creatinine 1.7 with a GFR of 32.8, this is near her baseline. I will provide a second liter of IV fluid. LFTs unremarkable, lipase 75, urinalysis unremarkable. Patient reports moderate improvement with Toradol. CT imaging reveals a left-sided hemorrhagic ovarian cyst, otherwise nothing acute. Discussed CT findings with patient. She does report having outpatient [facility] follow-up the of next month and she will attempt to be seen sooner. Standard discharge and return precautions were provided. Patient understands, is agreeable to this plan, and has no additional questions or concerns upon discharge. This documentation was generated using BRIKAation system, please disregard any oddities of phrase or misspellings. Medical Records Medical records reviewed: Yes I reviewed the patient's medical records. Imaging Data Radiologic Study: Attestation: I personally reviewed and interpreted this imaging study as follows: Imaging: CT Scan Radiologist's impression: Exam(s) CT ABDOMEN PELVIS WO EXAM: CT ABDOMEN PELVIS WO CLINICAL HISTORY: L flank pain, hx of stone and ovarian cyst. TECHNIQUE: Imaging Protocol: Axial computed tomography images with coronal and sagittal reformatted images were created and reviewed CONTRAST MATERIAL: Intravenous: none Oral: None COMPARISON: CT CT ABDOMEN PELVIS W from 06/04/2021 FINDINGS: VISUALIZED LUNG BASES: No nodules nor pleural effusions evident. ABDOMEN: There is no ascites. LIVER: Liver is again noted be enlarged in size and hypodense implying steatosis. Previously described right hepatic lobe finding remains unchanged GALLBLADDER/BILIARY: Gallbladder is again noted to be surgically absent. CBD is not dilated. PANCREAS: No evidence of pancreatic mass nor dilatation of the pancreatic duct. SPLEEN: Spleen size normal. Benign splenule again noted medial to the spleen ADRENALS: No new significant adrenal masses. Small nodule in the lateral limb of the left adrenal gland is unchanged and probably a small benign adenoma. KIDNEYS:No cysts evident. No solid renal masses. No calculi nor hydronephrosis. There is mild streaking around the inferior pole of the right kidney.. ABDOMINAL AORTA: Abdominal aorta is not enlarged. LYMPH NODES: There is no retroperitoneal nor paraaortic adenopathy. ABDOMINAL WALL: No evidence of significant anterior abdominal wall nor inguinal hernia. GI: There is no evidence of bowel obstruction, free air, nor abscess. PELVIS: LYMPH NODES: There is no intrapelvic nor inguinal adenopathy. GI: Appendix is again noted be surgically absent.No evidence of sigmoid diverticulitis. URINARY BLADDER: No calculi nor obvious masses evident REPRODUCTIVE: Uterus size unremarkable. Right ovary measures 3.4 by 2.8 cm. Presently no cysts in the right ovary. Left ovary exhibits similar size and contains a hemorrhagic cyst measuring 1.8 x 1.8 cm,. No free fluid the cul-de-sac and adnexal regions OSSEOUS: No significant osseous lesions. IMPRESSION: 1. Evidence of previous cholecystectomy and appendectomy. No bowel obstruction, free air, nor abscess. 2. There is an 18 x 18 millimeter hemorrhagic cyst in the left ovary. Previously present right ovarian cyst has resolved. No free fluid in the pelvis at this time. Lab Data Lab results reviewed: Yes I reviewed the patient's lab results. Labs: Laboratory Tests Range/Units 09/30/21 09/30/21 09/30/21 09:42 10:55 11:12 WBC (4.4-10.8) 10^3/uL 13.40 H RBC (3.93-5.22) 10^6/uL 4.55 Hgb (11.2-15.7) g/dL 14.2 Hct (36.0-46.0) % 43.0 MCV (80-95) fL 95 MCH (27.0-33.0) pg 31.2 MCHC (32.0-36.0) % 33.0 RDW (11.7-14.6) % 13.1 Plt Count (130-400) 10^3/uL 335 MPV (8.0-11.0) fL 9.5 Immature Gran % 0.5 Neutrophils % 65.3 Lymphocytes % 25.5 Monocytes % 4.9 Eosinophils % 3.1 Basophils % 0.7 Nucleated RBC % (0.0-0.3) % 0.0 Absolute Neutrophils (1.2-6.7) 10^3/uL 8.75 H Absolute Lymphocytes (1.2-3.4) 10^3/uL 3.42 H Absolute Monocytes (0.1-0.8) 10^3/uL 0.66 Absolute Eosinophils (0.0-0.7) 10^3/uL 0.42 Absolute Basophils (0.0-0.2) 10^3/uL 0.09 Sodium (136-145) mmol/L 136 Potassium (3.5-5.1) mmol/L 3.6 Chloride (98-107) mmol/L 102 Carbon Dioxide (21.0-32.0) mmol/L 23.4 Anion Gap (3-11) mmol/L 10.6 BUN (7-18) mg/dL 20 H Creatinine (0.55-1.02) mg/dL 1.7 H Estimated GFR/1.73 m2 (mL/min/1.73m2) 32.80 Glucose (74-106) mg/dL 136 H Calcium (8.5-10.1) mg/dL 8.9 Total Bilirubin (0.2-1.0) mg/dL 0.3 AST (15-37) U/L 23 ALT (14-59) U/L 34 Alkaline Phosphatase (46-116) U/L 97 Total Protein (6.4-8.2) g/dL 7.4 Albumin (3.4-5.0) g/dL 3.4 Lipase (73-393) U/L 75 Urine Color (Yellow) Yellow Urine Clarity (Clear) Clear Urine pH (5-8) 5.5 Ur Specific [place] (1.005-1.025) 1.025 Urine Protein (Negative) mg/dL Negative Urine Ketones (Negative) mg/dL Negative Urine Blood (Negative) Negative Urine Nitrite (Negative) Negative Urine Bilirubin (Negative) Negative Urine Urobilinogen (Up TO 0.2) EU/dL 0.2 Ur Leukocyte Esterase (Negative) Negative Urine Glucose (Negative) mg/dL Negative HPI General Mode of arrival: ambulatory. Date/Time Provider Initiated Documentation: 09/30/21 09:29. Limitations to Documentation: no limitations. Information obtained by: patient. History of Present Illness 41 year old F presents to the emergency department with the chief complaint of L flank pain, described as moderate, with intensity rated at 7. Quality is described as sharp, and is localized to the abdomen and left. Patient flank (groin). Patient started experiencing this week(s) (3) and it has been constant. No relieving factors improve symptom(s), Movement worsens symptoms . Patient notes nausea/vomiting (Just nausea). Patient did receive the following treatments prior to arrival, none Related Data Home Medications Medication Instructions Recorded Confirmed naloxone 4 mg/actuation nasal 1 spray intranasal ONCE PRN 04/19/18 09/30/21 spray (Narcan) alprazolam 1 mg tablet (Xanax) 1 mg PO BID 07/17/18 09/30/21 amitriptyline 25 mg tablet 25 mg PO HS 04/18/20 09/30/21 albuterol sulfate 90 mcg/actuation 2 puff inhalation PRN PRN 05/14/20 09/30/21 aerosol inhaler (ProAir HFA) pantoprazole 40 mg tablet,delayed 40 mg PO DAILY 05/14/20 09/30/21 release zolpidem 12.5 mg tablet,extended 12.5 mg PO HS 05/14/20 09/30/21 release,multiphase fluticasone propionate 44 2 puff inhalation BID 06/21/20 09/30/21 mcg/actuation HFA aerosol inhaler (Flovent HFA) oxycodone 5 mg tablet 10 mg PO 5X/DAY 11/19/20 09/30/21 lamotrigine 150 mg tablet 200 mg PO HS 12/07/20 09/30/21 enalapril maleate 10 mg tablet 10 mg PO DAILY #90 tabs 12/17/20 09/30/21 metoprolol succinate 100 mg 100 mg PO DAILY #90 tabs 12/17/20 09/30/21 tablet,extended release 24 hr spironolactone 25 mg tablet 25 mg PO BID #180 tabs 12/17/20 09/30/21 chlorthalidone 25 mg tablet 25 mg PO DAILY #90 tabs 02/25/21 09/30/21 Saccharomyces boulardii 250 mg 250 mg PO BID #14 caps 06/04/21 capsule (Florastor) verapamil 120 mg tablet,extended 240 mg PO DAILY #180 tabs 07/04/21 09/30/21 release Previous Rx's Medication Instructions Recorded enalapril maleate 10 mg tablet 10 mg PO DAILY #90 tabs 12/17/20 metoprolol succinate 100 mg 100 mg PO DAILY #90 tabs 12/17/20 tablet,extended release 24 hr spironolactone 25 mg tablet 25 mg PO BID #180 tabs 12/17/20 chlorthalidone 25 mg tablet 25 mg PO DAILY #90 tabs 02/25/21 Saccharomyces boulardii 250 mg 250 mg PO BID #14 caps 06/04/21 capsule (Florastor) verapamil 120 mg tablet,extended 240 mg PO DAILY #180 tabs 07/04/21 release Allergies Allergy/AdvReac Type Severity Reaction Status Date / Time labetalol Allergy Intermediate nausea and Verified 09/30/21 09:33 vomiting lisdexamfetamine Allergy Intermediate hypertensio Verified 09/30/21 09:33 [From Vyvanse] n cariprazine [From Vraylar] Allergy Unknown Verified 09/30/21 09:33 tamsulosin [From Flomax] Allergy light Verified 09/30/21 09:33 headed/dizzy prednisone AdvReac Intermediate It makes Verified 09/30/21 09:33 me feel weird codeine AdvReac Mild Nausea Verified 09/30/21 09:33 morphine AdvReac Mild Nausea Verified 09/30/21 09:33 tramadol HCl [From Ultram] AdvReac Mild Nausea Verified 09/30/21 09:33 tegaderm tape AdvReac Intermediate ariza my Uncoded 09/30/21 09:33 skin General Stated Complaint: Urinary JOEL: 4 Review of Systems Constitutional Constitutional: Denies fever(s) ENT Ears, Nose, Mouth, and Throat: Denies neck pain Cardiovascular Cardiovascular: Denies chest pain and Denies dyspnea Respiratory Respiratory: Denies cough and Denies dyspnea Gastrointestinal Gastrointestinal: Reports abdominal pain, Denies melena, Reports hematochezia (Occasionally after wiping), Denies diarrhea, Reports loose stools, Reports nausea and Denies vomiting Genitourinary Genitourinary: Reports abnormal vaginal bleeding (Over the last 3 menstrual cycles), Denies hematuria, Denies dysuria and Denies vaginal discharge Musculoskeletal Musculoskeletal: Reports back pain and Denies neck pain Integumentary/Breasts Skin/Breast: Denies rash PFSH All Active Problems (Updated 09/30/21 @ 12:57 by JO Ignacio) Hemorrhagic cyst of left ovary (Acute) ASCUS with positive high risk HPV (Acute) 09/2020. Patient needs colposcopy Colitis (Acute) ANN (obstructive sleep apnea) (Chronic) Borderline personality disorder (Acute) Bipolar 1 disorder (Chronic) Discharge planning issues (Acute) DVT prophylaxis (Acute) H/O ovarian cystectomy (Acute) 10/18/2020. Laparoscopic right ovarian cystectomy for persistent 4 cm right ovarian cyst. Abdominal pain (Acute) 04/2021. L>R side. Normal CT & u/s of abdomen and pelvis. 05/01/21. Rx Cipro and Flagyl times 2W Constipation (Acute) Chronic GERD (Chronic) Acute diarrhea (Acute) Essential hypertension (Chronic) Chronic pain (Chronic) Bilateral kidney stones (Acute) Headache, chronic migraine without aura (Chronic) Chronic headache (Chronic) Medication overuse headache (Chronic) Psychogenic tremor (Chronic) Medical History Abdominal pain Active asthma ADD (attention deficit disorder) Adnexal mass Amenorrhea Amnesia ASCUS with positive high risk HPV 09/2020. Will f/u at [facility] for colposcopy after issue with RLQ pain is addressed. Asthma Atypical squamous cells of undetermined significance with positive high risk human papillomavirus Calculus of kidney and ureter Carpal tunnel syndrome Causalgia of left upper extremity Cervical disc disease Cervical disc disorder with radiculopathy Chest pain at rest pt. denies this Chronic wrist pain Cold sore Conversion disorder tremor, stutter, weakness CVA tenderness Dizziness Elevated fasting blood sugar Essential tremor Gastritis GERD (gastroesophageal reflux disease) History of urinary stone Carcamo sign present Human papilloma virus (HPV) DNA test positive Hydronephrosis IBS (irritable bowel syndrome) Insomnia Irritable bowel syndrome with diarrhea Kidney stones Knee pain Left-sided thoracic back pain Median nerve compression in left forearm Medication management Medication monitoring encounter Memory loss Migraines Neuralgia Nicotine dependence Numbness and tingling Pain in pelvis Post-cholecystectomy syndrome post casey diarrhea Preop examination Psychophysiologic disorder PTSD (post-traumatic stress disorder) Rectal bleeding Right arm weakness Right ureteral stone Seizure (~04/14/18) Seizure disorder Snoring Spasm of back muscles Upper respiratory infection pt. denies this Ureteral calculi Surgical History Carpal tunnel syndrome, left s/p left ECTR DOS: 01/23/20 H/O left knee surgery History of carpal tunnel surgery of left wrist History of colonoscopy (~07/09/20) Repair of umbilical hernia S/P appendectomy S/P cholecystectomy S/P knee surgery Family History Father Cerebral aneurysm Social History Smoking/Tobacco Use Status: Current every day Tobacco Type: cigarettes Smoking packs per day: 0.5 Smoking cigarettes per day: 10.0 Years smoked: 30 Smoking pack-years: 15.00 Smoking risk assessment performed?: Yes Alcohol Intake: never Drug use: Never Substance use type: does not use Household members: significant other and other Details: RICKEY-Rufus x7yrs. S-Chance. Moved to [place] 2mo ago to be w/ GF. Number of Children: 1 current occupation: Unemployed secondary to disability Current gender identity: female Do you feel safe at home: Yes Do you feel safe in your relationship?: Yes Female Reproductive History Menstrual Duration of menses: 3-5 days (Average flow minimal dysmenorrhea) control method: none Exam Const General: cooperative, healthy appearing, comfortable and no acute distress Orientation: alert and awake [facility] Head: normal to inspection, normocephalic and atraumatic Eyes General: appearance normal, both eyes and all related structures Conjunctivae: conjunctivae normal Neck Neck: normal visual inspection, full ROM, trachea midline, supple and nontender Resp Effort & Inspection: normal respiratory effort and able to speak in complete sentences Auscultation: clear to auscultation bilaterally Cardio Rate: regular rate Rhythm: regular rhythm GI Palpation: soft, not firm, no guarding, no pulsatile masses and tender (left flank) with no rebound tenderness Back/Spine/Pelvis Back: No no CVA tenderness and back tenderness (Left lumbar) Skin General skin exam: no rashes or lesions noted Neuro General: patient alert, patient awake, moves all extremities and no focal motor deficits Sensory Exam: no sensory deficits noted Psych Appearance: grossly normal Mental Status: mental status grossly normal Course Vital Signs Vital signs: Vital Signs Temperature 36.8 C 09/30/21 09:29 Pulse 108 H 09/30/21 09:29 Blood Pressure 128/83 09/30/21 09:29 Pulse Oximetry 98 09/30/21 09:29 Temperature 36.8 C 09/30/21 09:29 Temperature Source Temporal Artery Scan 09/30/21 09:29 Pulse 108 H 09/30/21 09:29 Blood Pressure 128/83 09/30/21 09:29 Blood Pressure Position Sitting 09/30/21 09:29 Pulse Oximetry 98 09/30/21 09:29 Oxygen Delivery Method Room Air 09/30/21 09:29 Oxygen Flow Rate 0 09/30/21 09:29 Lab/Test Results Lab/Test Results: Laboratory Tests Range/Units 09/30/21 09:42 Urine Color (Yellow) Yellow Urine Clarity (Clear) Clear Urine pH (5-8) 5.5 Ur Specific [place] (1.005-1.025) 1.025 Urine Protein (Negative) mg/dL Negative Urine Ketones (Negative) mg/dL Negative Urine Blood (Negative) Negative Urine Nitrite (Negative) Negative Urine Bilirubin (Negative) Negative Urine Urobilinogen (Up TO 0.2) EU/dL 0.2 Ur Leukocyte Esterase (Negative) Negative Urine Glucose (Negative) mg/dL Negative POC- Test(urine) Negative
[2021-09-30] MEDS: Normal Saline 1,000 ML 1000 ML IV ×2 (10:55→12:24)
[2021-09-30 11:08] LABS: Abs Immature Grans 0.07 10^3/uL (0.0-0.06); Absolute Basophil Count 0.09 10^3/uL (0.0-0.2); Absolute Eosinophil Count 0.42 10^3/uL (0.0-0.7); Absolute Lymphocyte Count 3.42 10^3/uL (1.2-3.4); Absolute Monocyte Count 0.66 10^3/uL (0.1-0.8); Basophils % 0.7; Eosinophils % 3.1; HGB 14.2 g/dL (11.2-15.7); Immature Grans % 0.5; Lymphocytes % 25.5; MCH 31.2 pg (27.0-33.0); MCV 95 fL (80-95); MPV 9.5 fL (8.0-11.0); Monocytes % 4.9; Neutrophils % 65.3; Platelet Count 335 10^3/uL (130-400); RBC 4.55 10^6/uL (3.93-5.22); RDW 13.1 % (11.7-14.6); RDW-SD 45.2 fL
[2021-09-30 11:09] LABS: Absolute Neutrophil Count 8.75 10^3/uL (1.2-6.7)
[2021-09-30] MEDS: Ketorolac 30 MG/ML VIAL IVP (11:21)
[2021-09-30 11:34] LABS: ALT 34 U/L (14-59); AST 23 U/L (15-37); Albumin 3.4 g/dL (3.4-5.0); Alkaline Phosphatase 97 U/L (46-116); Anion Gap 10.6 mmol/L (3-11); BUN 20 mg/dL (7-18); Bilirubin, Total 0.3 mg/dL (0.2-1.0); CO2 23.4 mmol/L (21.0-32.0); CREATININE 1.7 mg/dL (0.55-1.02); Calcium 8.9 mg/dL (8.5-10.1); Chloride 102 mmol/L (98-107); Glucose 136 mg/dL (74-106); Lipase 75 U/L (73-393); Potassium 3.6 mmol/L (3.5-5.1); Sodium 136 mmol/L (136-145); Total Protein 7.4 g/dL (6.4-8.2)
--- NOTE | 2021-09-30 11:52 | DI.CT_ITS ---
Exam(s) CT ABDOMEN PELVIS WO EXAM: CT ABDOMEN PELVIS WO CLINICAL HISTORY: L flank pain, hx of stone and ovarian cyst. TECHNIQUE: Imaging Protocol: Axial computed tomography images with coronal and sagittal reformatted images were created and reviewed CONTRAST MATERIAL: Intravenous: none Oral: None COMPARISON: CT CT ABDOMEN PELVIS W from 06/04/2021 FINDINGS: VISUALIZED LUNG BASES: No nodules nor pleural effusions evident. ABDOMEN: There is no ascites. LIVER: Liver is again noted be enlarged in size and hypodense implying steatosis. Previously describ ed right hepatic lobe finding remains unchanged GALLBLADDER/BILIARY: Gallbladder is again noted to be surgically absent. CBD is not dilated. PANCREAS: No evidence of pancreatic mass nor dilatation of the pancreatic duct. SPLEEN: Spleen size normal. Benign splenule again noted medial to the spleen ADRENALS: No new significant adrenal masses. Small nodule in the lateral limb of the left adrenal gl and is unchanged and probably a small benign adenoma. KIDNEYS:No cysts evident. No solid renal masses. No calculi nor hydronephrosis. There is mild streak ing around the inferior pole of the right kidney.. ABDOMINAL AORTA: Abdominal aorta is not enlarged. LYMPH NODES: There is no retroperitoneal nor paraaortic adenopathy. ABDOMINAL WALL: No evidence of significant anterior abdominal wall nor inguinal hernia. GI: There is no evidence of bowel obstruction, free air, nor abscess. PELVIS: LYMPH NODES: There is no intrapelvic nor inguinal adenopathy. GI: Appendix is again noted be surgically absent.No evidence of sigmoid diverticulitis. URINARY BLADDER: No calculi nor obvious masses evident REPRODUCTIVE: Uterus size unremarkable. Right ovary measures 3.4 by 2.8 cm. Presently no cysts in t he right ovary. Left ovary exhibits similar size and contains a hemorrhagic cyst measuring 1.8 x 1.8 cm,. No free fluid the cul-de-sac and adnexal regions OSSEOUS: No significant osseous lesions. IMPRESSION: 1. Evidence of previous cholecystectomy and appendectomy. No bowel obstruction, free air, nor absces s. 2. There is an 18 x 18 millimeter hemorrhagic cyst in the left ovary. Previously present right ovari an cyst has resolved. No free fluid in the pelvis at this time. Called by myself to ER provider RADIATION DOSE DELIVERED: 1,197.14mGy.cm Total DLP DATA REPOSITORY: All CT scans at this facility are submitted to the National Radiology Data Registry (NRDR) Dose Index Registry (DIR) with the [employer] (ACR). RADIATION OPTIMIZATION: All CT scans at this facility use at least one of these dose optimization te chniques: automated exposure control; mA and/or kV adjustment per patient size (includes targeted exa ms where dose is matched to clinical indication); or iterative reconstruction.
[2021-09-30 12:24] VITALS: BP 102/68; PULSE 82; RESP 14; O2SAT 95
== END 2021-09-30 13:09 | disposition home or self-care (01) ==
PROVIDERS: Emergency Provider Physician Assistant; PCP Physician Assistant Medical
DX: N83.202 Unspecified ovarian cyst, left side (principal); I10 Essential (primary) hypertension; D72.829 Elevated white blood cell count, unspecified; J45.909 Unspecified asthma, uncomplicated; R11.0 Nausea; F17.210 Nicotine dependence, cigarettes, uncomplicated; Z87.442 Personal history of urinary calculi
CPT/HCPCS: 80053; 81025; 83690; 96361; 96374; 99284; 74176; 81003; 85025; J1885

== ENCOUNTER 2021-10-28 15:14 | Outpatient (REF) | payer MEDICAID, SELFPAY ==
--- NOTE | 2021-10-28 14:30 | CER_PTH ---
PATIENT: Shalini Jhaveri LOC: [facility] U#:[id number] AGE/SX: 41/F ROOM: RE10/28/[address]: Jen Poole : 1980 BED: DIS: 10/28/2021 SPEC #: [id number] RECD: 10/28/21 18:32 STATUS: MAKEDA REWenceslao #: [id number] PAT: 10/28/21 14:[address]: Jen Poole DEPT: Surgical Specimen RECD BY: Stefania Costello ENTERED: 10/28/21 18:33 SP TYPE: CER ARIANNA DR: Elizabeth Benton Tissues: 1 - CERVICAL BIOPSY 2 - CERVICAL BIOPSY 3 - ENDOCERVICAL BX/CURRETTE Procedures: GROSS AND MICRO LEVEL 4 Comments: [id number]
== END 2021-10-28 15:15 | disposition home or self-care (01) ==
LOC: LBN 15:14
PROVIDERS: PCP Physician Assistant Medical; Visit Provider Obstetrics & Gynecology Gynecology
DX: N88.8 Other specified noninflammatory disorders of cervix uteri (principal); Z87.42 Personal history of other diseases of the female genital tract
CPT/HCPCS: 88305

== ENCOUNTER 2021-11-19 03:37 | Outpatient (CLI) | payer MEDICAID, SELFPAY ==
[2021-11-19 14:19] LABS: Source Nasal/Nares
[2021-11-19 21:07] LABS: COVID-19 PCR Negative (Negative)
== END 2021-11-19 03:38 | disposition home or self-care (01) ==
LOC: LBO 03:37
PROVIDERS: PCP Physician Assistant Medical; Visit Provider Obstetrics & Gynecology Gynecology
DX: Z01.818 Encounter for other preprocedural examination (principal); Z20.822 Contact with and (suspected) exposure to COVID-19
CPT/HCPCS: 87635

== ENCOUNTER 2021-11-19 03:54 | Outpatient (CLI) | payer MEDICAID, SELFPAY ==
[2021-11-19 13:13] LABS: HCT 41.7 % (36.0-46.0); HGB 13.6 g/dL (11.2-15.7); MCH 31.4 pg (27.0-33.0); MCHC 32.6 % (32.0-36.0); MCV 96 fL (80-95); MPV 9.6 fL (8.0-11.0); Platelet Count 317 10^3/uL (130-400); RBC 4.33 10^6/uL (3.93-5.22); RDW 13.2 % (11.7-14.6); RDW-SD 47.4 fL; WBC 11.67 10^3/uL (4.4-10.8)
[2021-11-19 14:19] LABS: HCG Qual (Serum) Negative
[2021-11-19 14:21] LABS: ALT 29 U/L (14-59); AST 19 U/L (15-37); Albumin 3.6 g/dL (3.4-5.0); Alkaline Phosphatase 102 U/L (46-116); Anion Gap 10.4 mmol/L (3-11); BUN 27 mg/dL (7-18); Bilirubin, Total 0.2 mg/dL (0.2-1.0); CO2 23.6 mmol/L (21.0-32.0); CREATININE 1.8 mg/dL (0.55-1.02); Calcium 9.3 mg/dL (8.5-10.1); Chloride 102 mmol/L (98-107); Estimated GFR 35.41 (mL/min/1.73m2); Glucose 182 mg/dL (74-106); Potassium 4.1 mmol/L (3.5-5.1); Sodium 136 mmol/L (136-145); Total Protein 8.3 g/dL (6.4-8.2)
== END 2021-11-19 03:55 | disposition home or self-care (01) ==
LOC: LBO 03:54
PROVIDERS: PCP Physician Assistant Medical; Visit Provider Obstetrics & Gynecology Gynecology
DX: Z01.818 Encounter for other preprocedural examination (principal)
CPT/HCPCS: 36415; 80053; 85027; 86850; 86900; 86901; 84703

== ENCOUNTER 2021-11-21 12:41 | Observation (INO) | payer MEDICAID, SELFPAY ==
[2021-11-21] VITALS (12 sets, daily range): BP systolic 85–106; BP diastolic 55–78; PULSE 63–87; RESP 15–21; TEMP 36–36.5; O2SAT 94–97; BMI 34.2
[2021-11-21] MEDS: Lactated Ringers 1,000 ML 125 ML IV ×3 (08:15→16:29)
[2021-11-21] MEDS: VANCOMYCIN/WATER (PEG) 1 GM/200 ML BAG IVPB (08:23)
--- NOTE | 2021-11-21 08:41 | ANES.PREOP_ITS ---
General Info Date of Service Date Performed: 11/21/21 Height: 5 ft 7 in Weight: 99.3 kg Body Mass Index (BMI): 34.2 Surgical Procedure: Operation Date: 11/21/21 08:55 Proposed Procedure Side Surgeon p Hysterectomy Vaginal Laparoscopic Assist/Salpingectomy Jen Poole MD Meds Allergies and Home Medications Allergies Allergy/AdvReac Type Severity Reaction Status Date / Time labetalol AdvReac Intermediate nausea and Verified 11/21/21 08:06 vomiting lisdexamfetamine AdvReac Intermediate hypertensio Verified 11/21/21 08:06 [From Vyvanse] n prednisone AdvReac Intermediate It makes Verified 11/21/21 08:06 me feel weird codeine AdvReac Mild Nausea Verified 11/21/21 08:06 morphine AdvReac Mild Nausea Verified 11/21/21 08:06 tramadol HCl [From Ultram] AdvReac Mild Nausea Verified 11/21/21 08:06 cariprazine [From Vraylar] AdvReac Unknown vomiting Verified 11/21/21 08:06 tamsulosin [From Flomax] AdvReac light Verified 11/21/21 08:06 headed/dizzy tegaderm tape AdvReac Intermediate ariza my Uncoded 11/21/21 08:06 skin Home Medication Medication Instructions Recorded naloxone 4 mg/actuation nasal 1 spray intranasal ONCE PRN 04/19/18 spray (Narcan) alprazolam 1 mg tablet (Xanax) 1 mg PO BID 07/17/18 amitriptyline 25 mg tablet 25 mg PO HS 04/18/20 albuterol sulfate 90 mcg/actuation 2 puff inhalation PRN PRN 05/14/20 aerosol inhaler (ProAir HFA) pantoprazole 40 mg tablet,delayed 40 mg PO DAILY 05/14/20 release zolpidem 12.5 mg tablet,extended 12.5 mg PO HS 05/14/20 release,multiphase fluticasone propionate 44 2 puff inhalation BID 06/21/20 mcg/actuation HFA aerosol inhaler (Flovent HFA) oxycodone 5 mg tablet 10 mg PO 5X/DAY 11/19/20 lamotrigine 150 mg tablet 200 mg PO HS 12/07/20 enalapril maleate 10 mg tablet 10 mg PO DAILY #90 tabs 12/17/20 metoprolol succinate 100 mg 100 mg PO DAILY #90 tabs 12/17/20 tablet,extended release 24 hr spironolactone 25 mg tablet 25 mg PO BID #180 tabs 12/17/20 chlorthalidone 25 mg tablet 25 mg PO DAILY #90 tabs 02/25/21 Saccharomyces boulardii 250 mg 250 mg PO BID #14 caps 06/04/21 capsule (Florastor) verapamil 120 mg tablet,extended 240 mg PO DAILY #180 tabs 07/04/21 release Current Visit Medications: Current Medications Generic Name Dose Route Start Last Admin Trade Name Freq PRN Reason Stop Dose Admin Ringer's Solution 1,000 mls @ 125 mls/hr 11/21/21 06:00 11/21/21 08:15 IV 12/20/21 23:59 125 mls/hr INFUSION JUAN Administration Vancomycin/PEG/NADA/Lysine/Water 1 gm in 200 mls @ 133.333 mls/hr 11/21/21 06:00 11/21/21 08:23 Vancocin Injection IVPB 11/21/21 16:00 133.333 mls/hr PREOP JUAN Administration IV Miscellaneous Supplies 1 each 11/21/21 06:00 Iv Access IV 12/20/21 23:59 DIRECTED JUAN Sodium Chloride 0 ml 11/21/21 06:00 Normal Saline Flush 10 Ml Syr IV 12/20/21 23:59 PRN PRN Sodium Chloride 0 ml 11/21/21 06:00 Normal Saline 10 Ml Vial IJ 12/20/21 23:59 DIRECTED PRN Sterile Water 0 ml 11/21/21 06:00 Water,Injection,Sterile 10 Ml Vial IJ 12/20/21 23:59 DIRECTED PRN PFSH Active Problems Active Problems: Problem Status Onset Code Bilateral kidney stones N20.0 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 states when she gets too stressed out she blacks out, Last one was months ago' ASCUS with positive high risk HPV 09/2020. Will f/u at [facility] for colposcopy after issue with RLQ pain is addressed. ASCUS with positive high risk HPV 09/2020. Patient needs colposcopy Asthma Atypical squamous cells of undetermined significance with positive high risk human papillomavirus Calculus of kidney and ureter Carpal tunnel syndrome Causalgia of left upper extremity Cervical disc disease Cervical disc disorder with radiculopathy Chest pain at rest pt. denies this Chronic wrist pain Cold sore Conversion disorder tremor, stutter, weakness CVA tenderness Dizziness Elevated fasting blood sugar Essential tremor Gastritis GERD (gastroesophageal reflux disease) History of urinary stone Carcamo sign present Human papilloma virus (HPV) DNA test positive Hydronephrosis IBS (irritable bowel syndrome) Insomnia Irritable bowel syndrome with diarrhea Kidney stones Knee pain Left-sided thoracic back pain Median nerve compression in left forearm Medication management Medication monitoring encounter Memory loss Migraines Neuralgia Nicotine dependence Numbness and tingling Pain in pelvis Post-cholecystectomy syndrome post casey diarrhea Preop examination Psychophysiologic disorder PTSD (post-traumatic stress disorder) Rectal bleeding Right arm weakness Right ureteral stone Seizure (~04/14/18) Pt. stated she had one one time 5 years ago, and has never had once since Seizure disorder Snoring Spasm of back muscles Upper respiratory infection pt. denies this Ureteral calculi Medical History Comments:: Very anxious about spinal; needle phobia Surgical History Surgical History Carpal tunnel syndrome, left s/p left ECTR DOS: 01/23/20 H/O left knee surgery H/O ovarian cystectomy 10/18/2020. Laparoscopic right ovarian cystectomy for persistent 4 cm right ovarian cyst. History of carpal tunnel surgery of left wrist History of colonoscopy (~07/09/20) Repair of umbilical hernia S/P appendectomy S/P cholecystectomy S/P knee surgery Tobacco Smoking/Tobacco Use Status: Current every day Tobacco Type: cigarettes Smoking packs per day: 0.5 Smoking cigarettes per day: 10.0 Years smoked: 30 Smoking pack-years: 15.00 Alcohol Alcohol Intake: never Substance Use Substance use: Never Substance use type: does not use Vital Signs and Lab Results Vital Signs Most Recent Vital Signs in EMR: Most Recent Vital Signs Temp Pulse Resp BP Pulse Ox 36.5 C 71 16 105/75 97 11/21/21 08:24 11/21/21 08:24 11/21/21 08:24 11/21/21 08:24 11/21/21 08:24 Lab Results Blood Type / Crossmatch: Patient ABO/Rh A Positive 11/19/21 Antibody Screen NEGATIVE 11/19/21 Complete Blood Count: White Blood Count 11.67 10^3/uL (4.4-10.8) H 11/19/21 12:50 Red Blood Count 4.33 10^6/uL (3.93-5.22) 11/19/21 12:50 Hemoglobin 13.6 g/dL (11.2-15.7) 11/19/21 12:50 Hematocrit 41.7 % (36.0-46.0) 11/19/21 12:50 Platelet Count 317 10^3/uL (130-400) 11/19/21 12:50 Complete Metabolic Panel: Sodium Level 136 mmol/L (136-145) 11/19/21 12:50 Potassium Level 4.1 mmol/L (3.5-5.1) 11/19/21 12:50 Chloride Level 102 mmol/L (98-107) 11/19/21 12:50 Carbon Dioxide Level 23.6 mmol/L (21.0-32.0) 11/19/21 12:50 Blood Urea Nitrogen 27 mg/dL (7-18) H 11/19/21 12:50 Creatinine 1.8 mg/dL (0.55-1.02) H 11/19/21 12:50 Calcium Level 9.3 mg/dL (8.5-10.1) 11/19/21 12:50 Albumin 3.6 g/dL (3.4-5.0) 11/19/21 12:50 Glucose Level 182 mg/dL (74-106) H 11/19/21 12:50 Liver Function Panel: Alanine Aminotransferase (ALT/SGPT) 29 U/L (14-59) 09/13/22 12: 50 Aspartate Amino Transf (AST/SGOT) 19 U/L (15-37) 11/19/21 12:50 Coagulation Panel: No Data to Display Cardiac Panel: No Data to Display Arterial Blood Gas: No Data to Display Venous Blood Gas: No Data to Display Pancreas Panel: No Data to Display Thyroid Panel: No Data to Display Infectious Disease: Coronavirus (COVID-19)(PCR) Negative (Negative) 11/19/21 13:10 Coronavirus 2019 Source Nasal/Nares 11/19/21 13:10 Blood Cultures: No Data to Display Toxicology Panel: No Data to Display Panel: Urine HCG, Qualitative Negative 10/28/21 14:09 Serum HCG, Qualitative Negative 11/19/21 12:50 Imaging and Studies Imaging and Studies Study information below may be from another EMR and interpreted by another provider. Please see original notes in EMR for more complete details. EKG Summary: 09/25: sinus rhythm. Anesthesia Assessment and Plan Anesthesia History Personal History: No History of Anesthesia Complications Family History: No Family History of Anesthesia Complications Exercise Tolerance Exercise Tolerance: Metabolic Equivalents>4 Pertinent Negatives Pertinent Negatives: No Symptoms of GERD (Well controlled, took med this am), No Major Cardiovascular Symptoms or Complaints, No Major Pulmonary Symptoms or Complaints and No History of CVA/TIA Cardiac & Pulmonary Exam Cardiac Exam: Normal S1/S2 Heart Sounds Pulmonary Exam: Clear Bilateral Breath Sounds Implantable Cardiac Device Does patient have a Pacemaker or an ICD?: No Airway Exam Known Difficult Airway: No Mallampati Class: 3 Mouth Opening: Normal (> 3cm) Thyromental Distance: Greater than 3 cm Neck Range of Motion: Full ROM Neck Circumference: Normal Teeth Condition: Normal Dentition ASA Classification ASA Score: ASA 2 Emergency Case?: No NPO Status NPO Status: NPO Clears >2 hours, Solids >8 hours Status Status: Negative HCG Anesthesia Plan Resuscitation Status: Full Code Anesthesia Technique: General Anesthesia Airway Planned: Endotracheal Tube Pain Management: Intrathecal Analgesia (Tolerates morphine as long she has antiemetics ) Monitors Used: Standard Monitors Preoperative Comments:: Irizarry 2, grade I view
--- NOTE | 2021-11-21 11:15 | UTER_PTH ---
PATIENT: Shalini Jhaveri LOC: [facility]#:[id number] AGE/SX: 41/F ROOM: RE11/21/[address]: Jen Poole : 1980 BED: A DIS: 11/22/2021 SPEC #: [id number] RECD: 11/21/21 13:06 STATUS: MAKEDA REQ #: [id number] PAT: 11/21/21 11:[address]: Jen Poole DEPT: Surgical Specimen RECD BY: Stefania Costello ENTERED: 11/21/21 13:07 SP TYPE: UTER OTHR DR: Elizabeth Benton Tissues: 1 - UTERUS W OR W/O OVARIES(NOT TUMOR/PROLAPSE) Procedures: GROSS AND MICRO LEVEL 5 Comments: [id number]
[2021-11-21] MEDS: Lidocaine 1% Multi-Dose W/EPI 1/100,000 50 ML VIAL (12:00)
[2021-11-21] MEDS: Bupivacaine 0.25% Pres-Free 30 ML VIAL (12:00)
--- NOTE | 2021-11-21 12:50 | ROE_ITS ---
Date of service: 11/21/21 Time of Service: 12:50 Operative Note Operative Note DATE OF PROCEDURE: 11/21/21 PRE-OP DIAGNOSIS: pelvic pain, dyspareunia PROCEDURE: Laparoscopic assisted vaginal hysterectomy with bilateral salpingectomy SURGEON: Jen Poole ASSISTING SURGEON: Cassi Jackson Refer to Anesthesia Record ESTIMATED BLOOD LOSS: 100 PATHOLOGY: other (Uterus, cervix, and fallopian tubes to pathology) COMPLICATIONS: None Patient was transported to: PACU Patient's condition: stable Implants: None Indications: 41-year-old G4, P1 female with worsening dyspareunia and symptoms of pelvic pain. Patient was treated with a course of oral antibiotics for presumed endometritis without improvement. She requests definitive therapy in the form of hysterectomy Findings: Uterus was small with the vesicouterine peritoneum densely adherent to the anterior lower uterine segment. Normal-appearing ovaries. No distention of fallopian tubes. Both fallopian tubes had multiple small cysts on the serosal surface. Upper abdomen was normal. Procedure Description: Patient was taken to the operating room where she received spinal anesthesia. She was then placed in the dorsal supine position and general endotracheal anesthesia was administered without difficulty. She was positioned in the dorsal lithotomy position in [facility] with SCDs in place. After being prepped and draped in the usual sterile fashion a surgical timeout was performed. Salamanca catheter was placed to gravity drainage. A bivalve speculum was placed in the vagina the anterior lip of the cervix was grasped with a single-tooth tenaculum. A Nahed uterine manipulator was successfully inserted into the uterine cavity, the catheter bulb inflated with 8 cc of normal saline and the device left in place. Attention was then turned to the patient's abdomen. She received 2 g of Ancef prior to skin incision. The umbilical fold was infiltrated with 0.25% Marcaine without epinephrine. A scalpel was then used to make a 12mm vertical skin incision in the umbilical fold. Two penetrating towel clips were used to tent up the skin and through the periumbilical incision and a Veres needle was introduced into the abdomen with carbon dioxide as the distention medium. Intra-abdominal placement was confirmed by a drop in the intra-abdominal pressure. Once a pneumoperitoneum was established a 12 mm Visiport was placed under direct visualization. Patient was then placed in Trendelenburg position. The skin was infiltrated with 1cc of 0.25% Marcaine without epinephrine at two sites 6 cm diagonal from the umbilical incision. Those sites were incised with a scalpel and two 5 mm lower ports were placed under direct visualization. After careful inspection of the pelvis a LigaSure electrocautery device was used to clamp, cauterize and transect the left mesosalpinx to the level of the left uterine cornua. The left fallopian tube was then cauterized, transected, and delivered through the 12mm umbilical port site. The left proper ovarian ligament was then similarly clamped cauterized and transected from its attachment to the body of the uterus. The left round ligament and broad ligament were then clamped, cauterized and transected to the level of the lower uterine segment. The vesico-uterine peritoneum was incised and the the from the lower uterine segment and mobilized off of the body of the cervix. The pedicles of the uterine round and broad ligaments were inspected and noted to be hemostatic. On the contralateral side the right mesosalpinx, right proper ovarian ligament, round, and right broad ligament were sequentially clamped, cauterized and transected using the Ligasure device to the level of the insertion of the uterine artery. The remaining the vesicouterine peritoneum was incised across the lower uterine segment and the bladder flap created using the Ligasure device and gently counter traction. All pedicles were inspected and noted to be hemostatic. Decision was made to proceed with the vaginal portion of the case. Laparoscopic instruments were removed from the ports , the pneumoperitoneum was reduced, and the was abdomen covered with sterile drape. A weighted vaginal speculum was placed in the vagina and the anterior and posterior lips of the cervix were grasped with Yahir clamps. Body of the cervix was circumferentially infiltrated with 1% lidocaine solution of epinephrine. A circumferential incision of the cervical epithelium was made with a Bovie electrocautery. The vesicouterine fascia was identified and the anterior cul-de-sac entered sharply. Through this incision a curved right angled retractor was inserted and used to retract the bladder away from the operative field. The posterior cul-de-sac was entered sharply and through the this incision a long billed weighted speculum was placed. The left and right uterosacral ligament complexes were identified clamped, transected and suture-ligated and the suture held long. The remaining right and left broad ligament attatchments were sequentially clamped, cauterized, and transected and the specimen was passed off of the operative field. The vaginal cuff was reapproximated in a vertical fashion with a running suture of 0 Vicryl. Instruments removed from the vagina and attention was again turned to the abdomen where a pneumoperitoneum was reestablished and the pelvis inspected using the laparoscope. The vaginal cuff was intact and was hemostatic as were the round ligament and broad ligament pedicles. The instruments were removed from the port sites, the pneumoperitoneum reduced and the ports removed. The fascia of the periumbilical skin incision was closed with interrupted suture of 0 Vicryl. The skin of all port site incisions were reapproximated with a subcuticular closure of 4-0 Monocryl and and covered with sterile steri-strips and a band-aid. A cystoscopy was performed with both ureteral jets were patent with a brisk eflux of urine noted from each. The bladder was inspected and was normal in a ppearance. Salamanca catheter was reinserted to gravity drainage and the patient was placed in the dorsal supine position, awakened, extubated, and transported recovery area in stable condition. All sponge lap needle counts correct x2.
[2021-11-21] MEDS: HYDROmorphone 2 MG/ML SYR IVP ×3 (12:55→13:30)
[2021-11-21] MEDS: Acetaminophen 500 MG TAB PO (16:28)
[2021-11-21] MEDS: HYDROmorphone 2 MG TAB PO ×2 (16:29→21:34)
[2021-11-21] MEDS: Normal Saline Flush 10 ML SYR IV (18:36)
[2021-11-21] MEDS: Ondansetron 4 MG/2 ML VIAL IVP (18:36)
[2021-11-21] MEDS: Ketorolac 30 MG/ML VIAL IVP (18:36)
[2021-11-21] MEDS: ALPRAZolam 0.5 MG TAB 1 MG PO (20:12)
[2021-11-21] MEDS: Spironolactone 25 MG TAB PO (20:12)
[2021-11-21] MEDS: Docusate Sodium 100 MG CAP PO (20:12)
[2021-11-21] MEDS: Mometasone 220 MCG 14 DOSE INHALER 1 PUFF IH (20:12)
[2021-11-21] MEDS: Zolpidem 6.25 MG TABCR 12.5 MG PO (21:30)
[2021-11-21] MEDS: Amitriptyline 25 MG TAB PO (21:30)
[2021-11-21] MEDS: Ibuprofen 600 MG TAB PO (21:34)
[2021-11-22] VITALS: PULSE 87; RESP 16
[2021-11-22] MEDS: Ketorolac 30 MG/ML VIAL IVP ×2 (00:42→06:08)
[2021-11-22] MEDS: Lactated Ringers 1,000 ML 100 ML IV (00:43)
[2021-11-22 01:05] VITALS: PULSE 87; RESP 16
[2021-11-22 03:00] VITALS: BP 102/65; PULSE 86; RESP 16; TEMP 36.6; O2SAT 97
[2021-11-22] MEDS: HYDROmorphone 2 MG TAB PO (06:08)
[2021-11-22] MEDS: Acetaminophen 500 MG TAB PO (06:09)
[2021-11-22] MEDS: Docusate Sodium 100 MG CAP PO (07:52)
[2021-11-22] MEDS: Metoprolol CR 100 MG TABCR PO (07:53)
[2021-11-22] MEDS: ALPRAZolam 0.5 MG TAB 1 MG PO (07:53)
[2021-11-22] MEDS: Enalapril 5 MG TAB 10 MG PO (07:53)
[2021-11-22 07:54] VITALS: BP 101/67; PULSE 81; RESP 16; TEMP 36.1; O2SAT 94
[2021-11-22] MEDS: Spironolactone 25 MG TAB PO (07:54)
[2021-11-22] MEDS: Pantoprazole 40 MG TABCR PO (07:54)
[2021-11-22] MEDS: Chlorthalidone 25 MG TAB PO (07:54)
--- NOTE | 2021-11-22 08:00 | DSE_ITS ---
Date of service: 11/22/21 Time of Service: 10:42 DS: Diagnosis Discharge Diagnosis (1) S/P laparoscopic assisted vaginal hysterectomy (LAVH): Status: Acute Asessment and Plan: For treatment of pelvic pain and pain with intercourse Discharge Plan Disposition Patient Disposition: HOME Condition: Improving Discharge Details Reason For Visit: Laparoscopic Assisted Vaginal Hysterectomy Admit Date/Time: 11/21/21 12:41 Admit Provider: Jen Poole Attending Provider: Jen Poole Primary Care Provider: [facility] Hospital Course Hospital Course: Pt was admitted the morning of surgery and underwent the above stated procedure. Findings at the time of surgery: small uterus with adhesions of the vesicouterine peritoneum to the anterior lower uterine segment with obliteration of the anterior culdesac. Both ovaries and fallopian tubes normal. Post op course was uncomplicated she was discharged to home POD 1, tolerating a regular diet and voiding spontaneously. Discharge meds will include Dilaudid 2mg every 6 hours as needed for pain, Ibuprofen 600mg every six hours and Acetaminophen 500mg every 6 hours as needed for pain. She was instructed to use the Dilaudid for post op pain for a week post op and then restart her Oxycodone regime on 11/29/21. She was instructed not to take the Dilaudid and Oxycodone together. She can resume all of her home medications. Pt will not have anything in the vagina until her 6w post op appointment in 6 weeks. She will have an appoinment for a check of her incsions in 2 weeks. No lifting over 10lbs. No driving for 2 weeks. Prescription for Dilaudid has been called into [facility] in [facility] Home Meds and New Rx's Prescriptions: No Action amitriptyline 25 mg tablet 25 mg PO HS hydromorphone [Dilaudid] 2 mg tablet 2 mg PO Q6H MDD 4 PRN (Reason: pain) Qty: 28 0RF ibuprofen 600 mg tablet 600 mg PO Q6H PRN (Reason: pain) Qty: 60 1RF naloxone [Narcan] 4 mg/actuation spray,non-aerosol 1 spray LOGAN ONCE PRN fluticasone propionate [Flovent HFA] 44 mcg/actuation HFA aerosol inhaler 2 puff inhalation BID Rx Instructions: administer with spacer enalapril maleate 10 mg tablet 10 mg PO DAILY Qty: 90 3RF spironolactone 25 mg tablet 25 mg PO BID Qty: 180 3RF metoprolol succinate 100 mg tablet extended release 24 hr 100 mg PO DAILY Qty: 90 3RF chlorthalidone 25 mg tablet 25 mg PO DAILY Qty: 90 3RF verapamil 120 mg tablet extended release 240 mg PO DAILY Qty: 180 3RF alprazolam [Xanax] 1 mg Tablet 1 mg PO BID oxycodone 5 mg tablet 10 mg PO 5X/DAY Label Comments: TAKE 2 TABLETS BY MOUTH FIVE TIMES DAILY lamotrigine 150 mg tablet 200 mg PO HS Label Comments: TAKE 1 TABLET BY MOUTH EVERY DAY AT BEDTIME Saccharomyces boulardii [Florastor] 250 mg capsule 250 mg PO BID Qty: 14 0RF pantoprazole 40 mg tablet,delayed release (DR/EC) 40 mg PO DAILY Label Comments: TAKE 1 TABLET BY MOUTH ONCE DAILY albuterol sulfate [ProAir HFA] 90 mcg/actuation HFA aerosol inhaler 2 puff INHALATION PRN PRN Label Comments: INL 2 PFS PO Q 4 H PRN zolpidem 12.5 mg tablet,ext release multiphase 12.5 mg PO HS Label Comments: TAKE 1 TABLET BY MOUTH EVERY DAY AT BEDTIME Discharge Instructions Stand Alone Forms: DSU [employer] [facility]/Incision Activity:: Activity as Tolerated Equipment/Supplies:: No Equipment Needed Diet:: As Tolerated Discharge Orders Discharge Orders: Discharge Order (Routine); Ordered 11/22/21 Ordered By: Jen Poole DS: Summary Time Spent with Patient providing and/or coordinating discharge services: Less than 30 minutes Status at Discharge Functional status at discharge: independent ambulation Overall status at discharge: patient is progressing back to baseline Mental Status: mental status grossly normal Speech and Movement: speech and movement normal Mood: congruent mood Affect: normal affect Exam Narrative Exam Narrative: Patient underwent a laparoscopic-assisted vaginal hysterectomy with bilateral salpingectomy on 11/21/2021. Postop course uncomplicated she was discharged home on postop with instructions to begin Dilaudid 2 mg every 6 hours. She was instructed not to take Dilaudid. Her prescription for oxycodone during the time she was using for postop pain control. Const General: no acute distress Nutritional Appearance: obese Orientation: alert, awake and oriented x3 Resp Effort & Inspection: normal respiratory effort Auscultation: clear to auscultation bilaterally Cardio Rate: regular rate Rhythm: regular rhythm GI Inspection: incision (Dry sterile dressing) Palpation: soft, no masses and nontender Percussion: normal to percussion Auscultation: normal bowel sounds Rectal Exam - female: deferred Back/Spine/Pelvis Back: no CVA tenderness, back tenderness (Over sight of spinal needle insertion) and other Skin General skin exam: no rashes or lesions noted Extrem General: normal to inspection and full ROM Psych Appearance: grossly normal Mental Status: mental status grossly normal Speech and Movement: speech and movement normal Mood: congruent mood Affect: normal affect Attitude: cooperative Thought Content: normal Insight: insight good Judgment: judgment good Other: Patient reports that her pain is well controlled with current medication regime. She has been out of bed ambulating and voiding spontaneously. DS: Data Vitals/I&O Vitals and I&O: Vital Signs Temperature 97.0 F L 11/22/21 07:54 Temperature Source Tympanic 11/22/21 07:54 Pulse 81 11/22/21 07:54 Pulse Rhythm Regular 11/22/21 03:09 Respiratory Rate 16 11/22/21 07:54 Respiratory Effort 11/22/21 03:09 Respiratory Depth Normal 11/22/21 03:09 Respiratory Pattern Normal 11/22/21 03:09 Blood Pressure 101/67 11/22/21 07:54 Pulse Oximetry 94 11/22/21 07:54 Respiratory End-tidal CO2 33 11/21/21 13:35 Oxygen Delivery Method Room Air 11/22/21 07:54 Oxygen Flow Rate 0 11/22/21 07:54 Pain Level 0 11/22/21 07:54 Comment 11/22/21 03:00 Intake & Output 11/21/21 11/21/21 11/22/21 11:59 23:59 11:59 Intake Total 200 / 5045.686 6325.750 / 5374.376 1513 / 1460 Output Total 400 / 400 Balance 200 / 0962.021 9003.750 / 7697.803 0839 / 1060 Weight 218 lb 14.704 oz Intake: IV 200 / 3628.901 4421.750 / 3620.305 9260 / 1000 Oral 160 / 160 460 / 460 Output: Urine 400 / 400 Other: Urine Appearance Clear Clear Comment blue dye blue dye Emesis Description None PFSH All Active Problems (Updated 11/22/21 @ 08:32 by Jen Poole MD) Postoperative pain (Acute) S/P laparoscopic assisted vaginal hysterectomy (LAVH) (Acute) History of laparoscopic-assisted vaginal hysterectomy (Acute) Bilateral kidney stones (Acute) 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 L>R side. Normal CT & u/s of abdomen and pelvis. 05/01/21. Rx Cipro and Flagyl times 2W Constipation (Acute) Bipolar 1 disorder (Chronic) Borderline personality disorder (Acute) ANN (obstructive sleep apnea) (Chronic) Chronic GERD (Chronic) Acute diarrhea (Acute) Colitis (Acute) DVT prophylaxis (Acute) Discharge planning issues (Acute) Pre-op exam (Acute) Medical History (Updated 11/22/21 @ 08:32 by Jen Poole MD) Abdominal pain Active asthma ADD (attention deficit disorder) Adnexal mass Amenorrhea Amnesia Pt. states when she gets too stressed out she blacks out, Last one was months ago' ASCUS with positive high risk HPV 09/2020. Will f/u at [facility] for colposcopy after issue with RLQ pain is addressed. ASCUS with positive high risk HPV 09/2020. Patient needs colposcopy Asthma Atypical squamous cells of undetermined significance with positive high risk human papillomavirus Calculus of kidney and ureter Carpal tunnel syndrome Causalgia of left upper extremity Cervical disc disease Cervical disc disorder with radiculopathy Chest pain at rest pt. denies this Chronic wrist pain Cold sore Conversion disorder tremor, stutter, weakness CVA tenderness Dizziness Elevated fasting blood sugar Essential tremor Gastritis GERD (gastroesophageal reflux disease) History of urinary stone Carcamo sign present Human papilloma virus (HPV) DNA test positive Hydronephrosis IBS (irritable bowel syndrome) Insomnia Irritable bowel syndrome with diarrhea Kidney stones Knee pain Left-sided thoracic back pain Median nerve compression in left forearm Medication management Medication monitoring encounter Memory loss Migraines Neuralgia Nicotine dependence Numbness and tingling Pain in pelvis Post-cholecystectomy syndrome post casey diarrhea Preop examination Psychophysiologic disorder PTSD (post-traumatic stress disorder) Rectal bleeding Right arm weakness Right ureteral stone Seizure (~04/14/18) Pt. stated she had one one time 5 years ago, and has never had once since Seizure disorder Snoring Spasm of back muscles Upper respiratory infection pt. denies this Ureteral calculi Surgical History (Updated 11/22/21 @ 08:28 by Jen Poole MD) Carpal tunnel syndrome, left s/p left ECTR DOS: 01/23/20 H/O left knee surgery H/O ovarian cystectomy 10/18/2020. Laparoscopic right ovarian cystectomy for persistent 4 cm right ovarian cyst. History of carpal tunnel surgery of left wrist History of colonoscopy (~07/09/20) Repair of umbilical hernia S/P appendectomy S/P cholecystectomy S/P knee surgery Family History Father Cerebral aneurysm Social History (Updated 10/28/21 @ 19:22 by Jen Poole MD) Smoking/Tobacco Use Status: Current every day Tobacco Type: cigarettes Smoking packs per day: 0.5 Smoking cigarettes per day: 10.0 Years smoked: 30 Smoking pack-years: 15.00 Smoking risk assessment performed?: Yes Alcohol Intake: never Drug use: Never Substance use type: does not use Household members: significant other and other Details: BF-Tanner. S-Chance. Moved to [place] 2mo ago to be w/ GF. Number of Children: 1 current occupation: Unemployed secondary to disability Current gender identity: female Do you feel safe at home: Yes Do you feel safe in your relationship?: Yes Female Reproductive History Menstrual Duration of menses: 3-5 days (Average flow minimal dysmenorrhea) control method: none
--- NOTE | 2021-11-22 08:12 | W.ANESPOSTOP ---
Postoperative Evaluation Date, Time and Location Date Performed: 11/22/21 Time Performed: 08:12 Patient Location: Med/Surg Vital Signs Most Recent Imported Vital Signs: Most Recent Vital Signs Temp Pulse Resp BP Pulse Ox 36.1 C L 81 16 101/67 94 11/22/21 07:54 11/22/21 07:54 11/22/21 07:54 11/22/21 07:54 11/22/21 07:54 Pain Score Most Recent Pain Score: Most Recent Pain Score Pain Level [Abdomen] 3 11/22/21 01:05 Pain Level 0 11/22/21 07:54 Assessment Mental Status: Awake (Alert & Oriented to Patient Baseline) Airway and Respiratory Function: Patent airway with normal (patient baseline) respiratory exam Cardiovascular Function: Hemodynamically Stable Hydration Status: Adequately Hydrated Nausea & Vomiting: No Nausea or Vomiting Pain: Pt. Denies Any Pain Peripheral Nerve Block: Patient did not receive a nerve block
== END 2021-11-22 11:55 | disposition home or self-care (01) ==
LOC: MS 13:58
PROVIDERS: Admitting Provider Obstetrics & Gynecology Gynecology; PCP Physician Assistant Medical; Visit Provider Obstetrics & Gynecology Gynecology
PROC: 0UT9FZZ Resection of Uterus, Via Natural or Artificial Opening With Percutaneous Endoscopic Assistance (ICD-10-PCS; CPT 58552; principal; 2021-11-21 08:45)
DX: R10.2 Pelvic and perineal pain (principal); N94.10 Unspecified dyspareunia; N73.6 Female pelvic peritoneal adhesions (postinfective); N83.8 Other noninflammatory disorders of ovary, fallopian tube and broad ligament; J45.909 Unspecified asthma, uncomplicated; F98.8 Other specified behavioral and emotional disorders with onset usually occurring in childhood and adolescence; N20.2 Calculus of kidney with calculus of ureter; G56.42 Causalgia of left upper limb; F44.4 Conversion disorder with motor symptom or deficit; G43.709 Chronic migraine without aura, not intractable, without status migrainosus; K59.00 Constipation, unspecified; F31.9 Bipolar disorder, unspecified; G47.33 Obstructive sleep apnea (adult) (pediatric); K21.9 Gastro-esophageal reflux disease without esophagitis; F17.210 Nicotine dependence, cigarettes, uncomplicated
CPT/HCPCS: 58552; 52000; 96361; 96374; 88307; G0378; J1100; J1170; J1885; J2250; J2370; J2405; J2704; J3010

== ENCOUNTER 2021-12-31 10:09 | Outpatient (CLI) | payer MEDICAID, SELFPAY ==
--- NOTE | 2021-12-31 10:00 | RT.EKG_ITS ---
APPROVED REPORT Exam: Resting ECG Reason for Exam: HTN Patient Location: O HR:76 bpm ECG Measurements Heart Rate 76 AXIS MT 201 P 28 QRSd 90 QRS 23 QT 370 T 6 QTc 417 Conclusion Sinus rhythm...normal P axis, V-rate 50- 99 Normal Electrocardiogram
== END 2021-12-31 10:10 | disposition home or self-care (01) ==
LOC: DI.CARD 10:10
PROVIDERS: PCP Physician Assistant Medical; Visit Provider Internal Medicine Cardiovascular Disease
DX: I10 Essential (primary) hypertension (principal)
CPT/HCPCS: 93010

== ENCOUNTER 2022-01-03 14:53 | Emergency (ER) | payer MEDICAID, SELFPAY ==
[2022-01-03 14:59] VITALS: BP 149/85; PULSE 89; RESP 18; TEMP 37; O2SAT 98
--- NOTE | 2022-01-03 15:28 | W.ED.GENAD ---
Discharge Plan Disposition Patient Disposition: HOME Condition: Good Discharge Details Clinical Impression: Abscess, dental Primary Care Provider: Elizabeth Benton ED Provider: Jose Welch Home Meds and New Rx's Prescriptions: New penicillin V potassium 500 mg tablet 500 mg PO QID 10 Days Qty: 40 0RF No Action amitriptyline 25 mg tablet 25 mg PO HS chlorthalidone 25 mg tablet 25 mg PO DAILY Qty: 90 3RF metoprolol succinate 100 mg tablet extended release 24 hr 100 mg PO DAILY Qty: 90 3RF verapamil 120 mg tablet extended release 240 mg PO DAILY Qty: 180 3RF ibuprofen 600 mg tablet 600 mg PO Q6H PRN (Reason: pain) Qty: 60 1RF naloxone [Narcan] 4 mg/actuation spray,non-aerosol 1 spray LOGAN ONCE PRN fluticasone propionate [Flovent HFA] 44 mcg/actuation HFA aerosol inhaler 2 puff inhalation BID Rx Instructions: administer with spacer alprazolam [Xanax] 1 mg Tablet 1 mg PO BID oxycodone 5 mg tablet 10 mg PO 5X/DAY Label Comments: TAKE 2 TABLETS BY MOUTH FIVE TIMES DAILY lamotrigine 150 mg tablet 200 mg PO HS Label Comments: TAKE 1 TABLET BY MOUTH EVERY DAY AT BEDTIME Saccharomyces boulardii [Florastor] 250 mg capsule 250 mg PO BID Qty: 14 0RF pantoprazole 40 mg tablet,delayed release (DR/EC) 40 mg PO DAILY Label Comments: TAKE 1 TABLET BY MOUTH ONCE DAILY albuterol sulfate [ProAir HFA] 90 mcg/actuation HFA aerosol inhaler 2 puff INHALATION PRN PRN Label Comments: INL 2 PFS PO Q 4 H PRN zolpidem 12.5 mg tablet,ext release multiphase 12.5 mg PO HS Label Comments: TAKE 1 TABLET BY MOUTH EVERY DAY AT BEDTIME Discharge Instructions Instructions: Dental Abscess (ED) Additional Instructions: The block we administered should help improve your pain. Please take 800 mg of ibuprofen every 6 hours and 1000 mg of Tylenol every 6 hours to help with the inflammation and pain. These are the maximum doses. Please take the antibiotic as directed to help with the infection in your tooth. Please use the dental list that we have provided to contact the dentist for prompt follow-up and evaluation for tooth removal. If you notice any worsening of your symptoms, or any new symptoms such as difficulty swallowing, difficulty breathing, vomiting, diarrhea, fever, chills, shortness of breath, chest pain, numbness, weakness, or fainting , please return immediately to the emergency department for reevaluation. Please follow up with your primary care provider as soon as possible for reassessment and reevaluation. As always, it was a pleasure participating in your medical care today. Referrals: Elizabeth Benton [Primary Care Provider] - Medical Decision Making 41-year-old female presents today for right upper dental pain. Patient has been having this for the last few days but it is notably worsened over the last 24 hours with some associated swelling. She has not seen a dentist, she is not on any antibiotics. She denies any fever chills or difficulty swallowing but does have pain with any chewing. She has had no multiple dental problems in the past, and this area of concern is centered right around one of her old fractured diseased teeth. Patient denies any other complaints at this time. No other modifying factors. She has taken Tylenol Motrin without any improvement of her symptoms. She does not have any dental follow-up scheduled yet. Exam demonstrates notable dental caries especially in the right upper teeth over the canine. A small area of swelling and potential minimal fluctuance is noted in that area over the right upper canine as well. Patient consented to dental block and I&D. Superior alveolar block was applied, patient tolerated this well and had improvement of her symptoms and pain. After this an attempt was made to I&D the area of swelling, no purulent fluid was removed. Patient tolerated procedures well. We will patient does have a history of C. difficile, and we discussed risks and benefits of antibiotics. She has agreed and consented to taking antibiotics for her current infection. We will give penicillin, recommend to the patient that she utilizes a probiotic/live culture yogurt while taking the antibiotic. She will be doing this while taking the penicillin. Gave dental sheet for follow-up. Discussed red flags which to return. At this time there is no evidence of airway compromise, Ludewig's angina, or excessive swelling requiring admission. I have extensively reviewed the treatment plan and discharge instructions with the patient and their family. I have addressed all patient concerns at this time. The patient and family was made aware of what symptoms to monitor for that would warrant a return to the emergency department. Discussed the plan with the patient and family, they demonstrate verbal understanding and agreement with our assessment and plan at this time. The documentation in this chart was dictated using [employer] dictation software. Please excuse any dictation errors. HPI General Date/Time Provider Initiated Documentation: 01/03/22 15:12. HPI Narrative: 41-year-old female presents today for right upper dental pain. Patient has been having this for the last few days but it is notably worsened over the last 24 hours with some associated swelling. She has not seen a dentist, she is not on any antibiotics. She denies any fever chills or difficulty swallowing but does have pain with any chewing. She has had no multiple dental problems in the past, and this area of concern is centered right around one of her old fractured diseased teeth. Patient denies any other complaints at this time. No other modifying factors. She has taken Tylenol Motrin without any improvement of her symptoms. She does not have any dental follow-up scheduled yet. Related Data Home Medications Medication Instructions Recorded Confirmed naloxone 4 mg/actuation nasal 1 spray intranasal ONCE PRN 04/19/18 01/03/22 spray (Narcan) alprazolam 1 mg tablet (Xanax) 1 mg PO BID 07/17/18 01/03/22 amitriptyline 25 mg tablet 25 mg PO HS 04/18/20 01/03/22 albuterol sulfate 90 mcg/actuation 2 puff inhalation PRN PRN 05/14/20 01/03/22 aerosol inhaler (ProAir HFA) pantoprazole 40 mg tablet,delayed 40 mg PO DAILY 05/14/20 01/03/22 release zolpidem 12.5 mg tablet,extended 12.5 mg PO HS 05/14/20 01/03/22 release,multiphase fluticasone propionate 44 2 puff inhalation BID 06/21/20 01/03/22 mcg/actuation HFA aerosol inhaler (Flovent HFA) oxycodone 5 mg tablet 10 mg PO 5X/DAY 11/19/20 01/03/22 lamotrigine 150 mg tablet 200 mg PO HS 12/07/20 01/03/22 Saccharomyces boulardii 250 mg 250 mg PO BID #14 caps 06/04/21 01/03/22 capsule (Florastor) ibuprofen 600 mg tablet 600 mg PO Q6H PRN pain #60 tabs 11/22/21 01/03/22 chlorthalidone 25 mg tablet 25 mg PO DAILY #90 tabs 12/31/21 01/03/22 metoprolol succinate 100 mg 100 mg PO DAILY #90 tabs 12/31/21 01/03/22 tablet,extended release 24 hr verapamil 120 mg tablet,extended 240 mg PO DAILY #180 tabs 12/31/21 01/03/22 release penicillin V potassium 500 mg 500 mg PO QID 10 days #40 tabs 01/03/22 tablet Previous Rx's Medication Instructions Recorded Saccharomyces boulardii 250 mg 250 mg PO BID #14 caps 06/04/21 capsule (Florastor) ibuprofen 600 mg tablet 600 mg PO Q6H PRN pain #60 tabs 11/22/21 chlorthalidone 25 mg tablet 25 mg PO DAILY #90 tabs 12/31/21 metoprolol succinate 100 mg 100 mg PO DAILY #90 tabs 12/31/21 tablet,extended release 24 hr verapamil 120 mg tablet,extended 240 mg PO DAILY #180 tabs 12/31/21 release penicillin V potassium 500 mg 500 mg PO QID 10 days #40 tabs 01/03/22 tablet Allergies Allergy/AdvReac Type Severity Reaction Status Date / Time labetalol AdvReac Intermediate nausea and Verified 01/02/22 14:01 vomiting lisdexamfetamine AdvReac Intermediate hypertensio Verified 01/02/22 14:01 [From Vyvanse] n prednisone AdvReac Intermediate It makes Verified 01/02/22 14:01 me feel weird codeine AdvReac Mild Nausea Verified 01/02/22 14:01 morphine AdvReac Mild Nausea Verified 01/02/22 14:01 tramadol HCl [From Ultram] AdvReac Mild Nausea Verified 01/02/22 14:01 cariprazine [From Vraylar] AdvReac Unknown vomiting Verified 01/02/22 14:01 tamsulosin [From Flomax] AdvReac light Verified 01/02/22 14:01 headed/dizzy tegaderm tape AdvReac Intermediate ariza my Uncoded 01/02/22 14:01 skin General Stated Complaint: DentalOral JOEL: 4 Review of Systems All systems reviewed & are unremarkable except as noted in HPI and below PFSH All Active Problems Abscess, dental (Acute) Postoperative pain (Acute) S/P laparoscopic assisted vaginal hysterectomy (LAVH) (Acute) History of laparoscopic-assisted vaginal hysterectomy (Acute) Bilateral kidney stones (Acute) 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 L>R side. Normal CT & u/s of abdomen and pelvis. 05/01/21. Rx Cipro and Flagyl times 2W Constipation (Acute) Bipolar 1 disorder (Chronic) Borderline personality disorder (Acute) ANN (obstructive sleep apnea) (Chronic) Chronic GERD (Chronic) Acute diarrhea (Acute) Colitis (Acute) DVT prophylaxis (Acute) Discharge planning issues (Acute) Pre-op exam (Acute) Medical History Abdominal pain Active asthma ADD (attention deficit disorder) Adnexal mass Amenorrhea Amnesia Pt. states when she gets too stressed out she blacks out, Last one was months ago' ASCUS with positive high risk HPV 09/2020. Will f/u at [facility] [place] for colposcopy after issue with RLQ pain is addressed. ASCUS with positive high risk HPV 09/2020. Patient needs colposcopy Asthma Atypical squamous cells of undetermined significance with positive high risk human papillomavirus Calculus of kidney and ureter Carpal tunnel syndrome Causalgia of left upper extremity Cervical disc disease Cervical disc disorder with radiculopathy Chest pain at rest pt. denies this Chronic wrist pain Cold sore Conversion disorder tremor, stutter, weakness CVA tenderness Dizziness Elevated fasting blood sugar Essential tremor Gastritis GERD (gastroesophageal reflux disease) History of urinary stone Carcamo sign present Human papilloma virus (HPV) DNA test positive Hydronephrosis IBS (irritable bowel syndrome) Insomnia Irritable bowel syndrome with diarrhea Kidney stones Knee pain Left-sided thoracic back pain Median nerve compression in left forearm Medication management Medication monitoring encounter Memory loss Migraines Neuralgia Nicotine dependence Numbness and tingling Pain in pelvis Post-cholecystectomy syndrome post casey diarrhea Preop examination Psychophysiologic disorder PTSD (post-traumatic stress disorder) Rectal bleeding Right arm weakness Right ureteral stone Seizure (~04/14/18) Pt. stated she had one one time 5 years ago, and has never had once since Seizure disorder Snoring Spasm of back muscles Upper respiratory infection pt. denies this Ureteral calculi Surgical History Carpal tunnel syndrome, left s/p left ECTR DOS: 01/23/20 H/O left knee surgery H/O ovarian cystectomy 10/18/2020. Laparoscopic right ovarian cystectomy for persistent 4 cm right ovarian cyst. History of carpal tunnel surgery of left wrist History of colonoscopy (~07/09/20) Repair of umbilical hernia S/P appendectomy S/P cholecystectomy S/P knee surgery Family History Father Cerebral aneurysm Social History Smoking/Tobacco Use Status: Current every day Tobacco Type: cigarettes Smoking packs per day: 0.5 Smoking cigarettes per day: 10.0 Years smoked: 30 Smoking pack-years: 15.00 Smoking risk assessment performed?: Yes Alcohol Intake: never Drug use: Never Substance use type: does not use Household members: significant other and other Details: BF-Tanner. S-Chance. Moved to [place] 2mo ago to be w/ GF. Number of Children: 1 current occupation: Unemployed secondary to disability Current gender identity: female Do you feel safe at home: Yes Do you feel safe in your relationship?: Yes Female Reproductive History Menstrual Duration of menses: 3-5 days (Average flow minimal dysmenorrhea) control method: none Exam Narrative Exam Narrative: 1.Const: Well-nourished, Well-developed, appearing stated age 2.Eyes: PERRL, no conjunctival injection, and symmetrical lids. 3.ENT: Atraumatic external nose and ears. Moist MM. Neck: Symmetric, trachea midline, No thyromegaly. Notable dental caries throughout. Multiple fractured teeth. The area over the right upper canine demonstrates a small area of swelling and minimal fluctuance. Notable tenderness. No evidence of Ludewig's angina or swelling in the posterior oropharynx. 4.CVS: +S1/S2, No murmurs or gallops. Peripheral pulses 2+ and equal in all extremities. Brisk capillary refill in all extremities. 5.RESP: Unlabored respiratory effort. Clear to auscultation bilaterally. No wheezes rales or rhonchi 6.GI: Soft, Nontender/Nondistended, No hepatosplenomegaly. No guarding or rebound. 7.MSK: Normocephalic/Atraumatic, Extremities w/o deformity or ttp No cyanosis or clubbing, Normal movement of all extremities 8.Skin: Warm, Dry. No rashes or lesions. 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 Sensation grossly intact, no focal neurologic deficits. 10.Psych: (AAO) x3. Appropriate mood and affect Course Vital Signs Vital signs: Vital Signs Temperature 37.0 C 01/03/22 14:59 Pulse 89 01/03/22 14:59 Respiratory Rate 18 01/03/22 14:59 Blood Pressure 149/85 H 01/03/22 14:59 Pulse Oximetry 98 01/03/22 14:59 Temperature 37.0 C 01/03/22 14:59 Temperature Source Oral 01/03/22 14:59 Pulse 89 01/03/22 14:59 Respiratory Rate 18 01/03/22 14:59 Respiratory Effort Non-Labored 01/03/22 15:06 Blood Pressure 149/85 H 01/03/22 14:59 Pulse Oximetry 98 01/03/22 14:59 Procedures Abscess I/D Site: Face Side (if applicable): Right Local Anesthetic: Bupivicaine 0.5% Amount of anesthesia used (mL): 5 Technique: Needle Aspiration Amount of fluid expressed (mL): 0 Irrigation: No Packing used?: None Nerve Block Nerve Block 1: Time out performed: Yes Local Anesthetic: Bupivicaine 0.5% Amount of anesthesia used (mL): 5 Side: right Intraoral Nerve Block: superior alveolar Procedure Successful: Yes Patient Tolerated Procedure: well and no complications Complications: none
[2022-01-03] MEDS: Bupivacaine 0.5% Pres-Free 30 ML VIAL (15:45)
== END 2022-01-03 15:44 | disposition home or self-care (01) ==
PROVIDERS: Emergency Provider Student in an Organized Health Care Education/Training Program; PCP Physician Assistant Medical
DX: K04.7 Periapical abscess without sinus (principal); J45.909 Unspecified asthma, uncomplicated; K02.9 Dental caries, unspecified; F98.8 Other specified behavioral and emotional disorders with onset usually occurring in childhood and adolescence; F17.210 Nicotine dependence, cigarettes, uncomplicated; Z79.51 Long term (current) use of inhaled steroids
CPT/HCPCS: 41800; 99283; 99284

== ENCOUNTER 2022-03-13 02:00 | Emergency (ER) | payer MEDICAID, SELFPAY ==
[2022-03-13 02:06] VITALS: BP 119/82; PULSE 88; RESP 22; TEMP 36.8; O2SAT 97
--- NOTE | 2022-03-13 02:15 | DI.RAD_ITS ---
Exam(s) XR FOOT LT COMPLETE EXAM: XR FOOT LT COMPLETE CLINICAL HISTORY: crunch in left foot + great toe pain, r/o fx. TECHNIQUE: 2D digital imaging was performed. COMPARISON: CR,XR XR foot LT complete from 11/13/2018 FINDINGS: 3 views No evidence of fracture or diastasis of the Lisfranc joint. Bone density normal. No osseous lesions . No erosions. No radiopaque foreign body. No obvious degenerative changes. IMPRESSION: No acute osseous findings. DATA REPOSITORY: RADIATION DOSE DELIVERED:
--- NOTE | 2022-03-13 02:19 | W.ED.GENAD ---
Discharge Plan Disposition Patient Disposition: Home Condition: Stable Discharge Details Clinical Impression: Sprain of left foot, Sprain of left great toe Primary Care Provider: Elizabeth Benton ED Provider: Marlin Dallas Home Meds and New Rx's Prescriptions: Continued amitriptyline 25 mg tablet 25 mg PO HS chlorthalidone 25 mg tablet 25 mg PO DAILY Qty: 90 3RF metoprolol succinate 100 mg tablet extended release 24 hr 100 mg PO DAILY Qty: 90 3RF verapamil 120 mg tablet extended release 240 mg PO DAILY Qty: 180 3RF ibuprofen 600 mg tablet 600 mg PO Q6H PRN (Reason: pain) Qty: 60 1RF naloxone [Narcan] 4 mg/actuation spray,non-aerosol 1 spray LOGAN ONCE PRN fluticasone propionate [Flovent HFA] 44 mcg/actuation HFA aerosol inhaler 2 puff inhalation BID Rx Instructions: administer with spacer oxycodone 5 mg tablet 10 mg PO 5X/DAY Label Comments: TAKE 2 TABLETS BY MOUTH FIVE TIMES DAILY lamotrigine 150 mg tablet 200 mg PO HS Label Comments: TAKE 1 TABLET BY MOUTH EVERY DAY AT BEDTIME pantoprazole 40 mg tablet,delayed release (DR/EC) 40 mg PO DAILY Label Comments: TAKE 1 TABLET BY MOUTH ONCE DAILY albuterol sulfate [ProAir HFA] 90 mcg/actuation HFA aerosol inhaler 2 puff INHALATION PRN PRN Label Comments: INL 2 PFS PO Q 4 H PRN zolpidem 12.5 mg tablet,ext release multiphase 12.5 mg PO HS Label Comments: TAKE 1 TABLET BY MOUTH EVERY DAY AT BEDTIME Discharge Instructions Instructions: Foot Sprain (ED) Additional Instructions: There are no obvious findings on your x-ray. You will be notified if the radiologist notes any additional findings once the official radiology report result is available. Rest, ice, and elevate the affected area as much as possible. Alternate tylenol and motrin as needed and directed for pain. Follow-up with the public health aide for reevaluation if your pain does not improve or worsens. Return immediately to the emergency department if you develop any worsening or new concerning symptoms. Referrals: Zuleyma Mckoy DPM [[facility] STAFF PHYSICIAN] - Discharge Data Discharge Date/Time-TO BE ENTERED AT DEPARTURE: 03/13/22 04:12 Discharge Physician: Marlin Dallas Medical Decision Making 0210 -- 42-year-old female presents with left great toe and left midfoot pain for the past 2 days. Initially denied any injury with her left great toe pain and then admitted to crunch in her left foot while walking barefoot after that. Patient appears comfortable and nontoxic. Her left great toe base is minimally edematous but no evidence erythema or ecchymosis and does not appear consistent with gout or fracture at this time. She also has tenderness to her dorsal left midfoot but no deformity. Ankle appears normal to inspection without tenderness and normal range of motion. She has neurovascular intact. Suspect toe and foot sprain. Discussed that the treatment for a sprain or gout is essentially the same with NSAIDs. Patient states she has to limit NSAIDs secondary to history of GI bleeding. Will refer for x-ray. 0320 --no office findings on x-ray. Official result still pending secondary to delay with virtual radiology. Patient would rather go home and not wait for the result. She was placed in an Sree wrap, orthopedic shoe and given crutches. She was given podiatry follow-up information. Advised to rest, ice and elevate left foot is much as possible. Advised alternate Tylenol and limited Motrin. Usual and customary return precautions given prior to discharge. Final x-ray report revealed no acute findings. Medical Records Medical records reviewed: Yes I reviewed the patient's medical records. Imaging Data Radiologic Study: Radiologist's impression: XR Left Foot Exam date and time: 03/13/2022 2:48 AM Age: 42 years old Clinical indication: Pain; Foot; Left; Additional info: Crunch in left foot + great toe pain, R/O FX TECHNIQUE: Imaging protocol: Radiologic exam of the Left foot. Views: 3 or more views. COMPARISON: CR XR foot LT complete 11/13/2018 3:23 PM FINDINGS: ?Normal alignment. No acute fracture or dislocation. No significant joint space narrowing. IMPRESSION: No acute findings. HPI General Mode of arrival: ambulatory. Date/Time Provider Initiated Documentation: 03/13/22 02:10. Limitations to Documentation: no limitations. Information obtained by: patient. HPI Narrative: Patient is a 42-year-old female presents with left great toe and foot pain for the past 2 days. Patient states 2 days ago she noted pain in her left great toe but denied any injury at that time. She states shortly after that while she was walking barefoot she felt a crunch in her left dorsal midfoot. She states she has been having pain with ambulation in her left midfoot since then. She denies any left ankle pain. She states she has been taking Tylenol and ibuprofen without relief. She denies any known fever. Related Data Home Medications Medication Instructions Recorded Confirmed naloxone 4 mg/actuation nasal 1 spray intranasal ONCE PRN 04/19/18 01/29/22 spray (Narcan) amitriptyline 25 mg tablet 25 mg PO HS 04/18/20 01/29/22 albuterol sulfate 90 mcg/actuation 2 puff inhalation PRN PRN 05/14/20 01/29/22 aerosol inhaler (ProAir HFA) pantoprazole 40 mg tablet,delayed 40 mg PO DAILY 05/14/20 01/29/22 release zolpidem 12.5 mg tablet,extended 12.5 mg PO HS 05/14/20 01/29/22 release,multiphase fluticasone propionate 44 2 puff inhalation BID 06/21/20 01/29/22 mcg/actuation HFA aerosol inhaler (Flovent HFA) oxycodone 5 mg tablet 10 mg PO 5X/DAY 11/19/20 01/29/22 lamotrigine 150 mg tablet 200 mg PO HS 12/07/20 01/29/22 ibuprofen 600 mg tablet 600 mg PO Q6H PRN pain #60 tabs 11/22/21 01/29/22 chlorthalidone 25 mg tablet 25 mg PO DAILY #90 tabs 12/31/21 01/03/22 metoprolol succinate 100 mg 100 mg PO DAILY #90 tabs 12/31/21 01/03/22 tablet,extended release 24 hr verapamil 120 mg tablet,extended 240 mg PO DAILY #180 tabs 12/31/21 01/03/22 release Previous Rx's Medication Instructions Recorded ibuprofen 600 mg tablet 600 mg PO Q6H PRN pain #60 tabs 11/22/21 chlorthalidone 25 mg tablet 25 mg PO DAILY #90 tabs 12/31/21 metoprolol succinate 100 mg 100 mg PO DAILY #90 tabs 12/31/21 tablet,extended release 24 hr verapamil 120 mg tablet,extended 240 mg PO DAILY #180 tabs 12/31/21 release Allergies Allergy/AdvReac Type Severity Reaction Status Date / Time labetalol AdvReac Intermediate nausea and Verified 01/02/22 14:01 vomiting lisdexamfetamine AdvReac Intermediate hypertensio Verified 01/02/22 14:01 [From Vyvanse] n prednisone AdvReac Intermediate It makes Verified 01/02/22 14:01 me feel weird codeine AdvReac Mild Nausea Verified 01/02/22 14:01 morphine AdvReac Mild Nausea Verified 01/02/22 14:01 tramadol HCl [From Ultram] AdvReac Mild Nausea Verified 01/02/22 14:01 cariprazine [From Vraylar] AdvReac Unknown vomiting Verified 01/02/22 14:01 tamsulosin [From Flomax] AdvReac light Verified 01/02/22 14:01 headed/dizzy tegaderm tape AdvReac Intermediate ariza my Uncoded 01/02/22 14:01 skin General Stated Complaint: GenMedical JOEL: 4 Review of Systems All systems reviewed & are unremarkable except as noted in HPI and below Constitutional Constitutional: Reports as per HPI, Denies chills and Denies fever(s) Eyes Eyes: Denies blurry vision ENT Ears, Nose, Mouth, and Throat: Denies dizziness, Denies sore throat and Denies throat swelling Cardiovascular Cardiovascular: Denies chest pain and Denies dyspnea Respiratory Respiratory: Denies cough and Denies dyspnea Gastrointestinal Gastrointestinal: Denies abdominal pain, Denies diarrhea and Denies vomiting Genitourinary Genitourinary: Denies hematuria and Denies dysuria Musculoskeletal Musculoskeletal: Denies back pain and Denies numbness Comments: L great toe and foot pain Integumentary/Breasts Skin/Breast: Denies lesions and Denies rash Neurologic Neurologic: Denies dizziness, Denies localized weakness and Denies numbness Allergic/Immunologic Allergic/Immunologic: Denies throat swelling PFSH All Active Problems (Updated 03/13/22 @ 03:26 by Marlin Dallas DO) Sprain of left foot (Acute) Sprain of left great toe (Acute) Postoperative pain (Acute) S/P laparoscopic assisted vaginal hysterectomy (LAVH) (Acute) Bilateral kidney stones (Acute) 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 L>R side. Normal CT & u/s of abdomen and pelvis. 05/01/21. Rx Cipro and Flagyl times 2W Constipation (Acute) Bipolar 1 disorder (Chronic) Borderline personality disorder (Acute) ANN (obstructive sleep apnea) (Chronic) Chronic GERD (Chronic) Acute diarrhea (Acute) Colitis (Acute) DVT prophylaxis (Acute) Medical History Abdominal pain Active asthma ADD (attention deficit disorder) Adnexal mass Amenorrhea Amnesia Pt. states when she gets too stressed out she blacks out, Last one was months ago' ASCUS with positive high risk HPV 09/2020. Will f/u at [facility] for colposcopy after issue with RLQ pain is addressed. ASCUS with positive high risk HPV 09/2020. Patient needs colposcopy Asthma Atypical squamous cells of undetermined significance with positive high risk human papillomavirus Calculus of kidney and ureter Carpal tunnel syndrome Causalgia of left upper extremity Cervical disc disease Cervical disc disorder with radiculopathy Chest pain at rest pt. denies this Chronic wrist pain Cold sore Conversion disorder tremor, stutter, weakness CVA tenderness Dizziness Elevated fasting blood sugar Essential tremor Gastritis GERD (gastroesophageal reflux disease) History of urinary stone Carcamo sign present Human papilloma virus (HPV) DNA test positive Hydronephrosis IBS (irritable bowel syndrome) Insomnia Irritable bowel syndrome with diarrhea Kidney stones Knee pain Left-sided thoracic back pain Median nerve compression in left forearm Medication management Medication monitoring encounter Memory loss Migraines Neuralgia Nicotine dependence Numbness and tingling Pain in pelvis Post-cholecystectomy syndrome post casey diarrhea Preop examination Psychophysiologic disorder PTSD (post-traumatic stress disorder) Rectal bleeding Right arm weakness Right ureteral stone Seizure (~04/14/18) Pt. stated she had one one time 5 years ago, and has never had once since Seizure disorder Snoring Spasm of back muscles Upper respiratory infection pt. denies this Ureteral calculi Surgical History Carpal tunnel syndrome, left s/p left ECTR DOS: 01/23/20 H/O left knee surgery H/O ovarian cystectomy 10/18/2020. Laparoscopic right ovarian cystectomy for persistent 4 cm right ovarian cyst. History of carpal tunnel surgery of left wrist History of colonoscopy (~07/09/20) Repair of umbilical hernia S/P appendectomy S/P cholecystectomy S/P knee surgery Family History Father Cerebral aneurysm Social History Smoking/Tobacco Use Status: Current every day Tobacco Type: cigarettes Smoking packs per day: 0.5 Smoking cigarettes per day: 10.0 Years smoked: 30 Smoking pack-years: 15.00 Smoking risk assessment performed?: Yes Alcohol Intake: never Drug use: Never Substance use type: does not use Household members: significant other and other Details: BF-Tanner. S-Chance. Moved to [place] 2mo ago to be w/ GF. Number of Children: 1 current occupation: Unemployed secondary to disability Current gender identity: female Do you feel safe at home: Yes Do you feel safe in your relationship?: Yes Female Reproductive History Menstrual Duration of menses: 3-5 days (Average flow minimal dysmenorrhea) control method: none Exam Const General: cooperative, healthy appearing and no acute distress HENMT Head: normal to inspection Mouth: oral mucosae normal Eyes General: appearance normal, both eyes and all related structures Neck Neck: normal visual inspection Resp Effort & Inspection: normal respiratory effort and able to speak in complete sentences Cardio Rate: regular rate Skin General skin exam: no rashes or lesions noted Neuro General: patient alert, patient awake and patient oriented x3 Motor: muscle tone normal throughout Extrem General: normal to inspection and full ROM Ankle/foot/toe images: 1. Tender to palpation. Minimal edema. No erythema, does not feel hot to touch. Pain with extension, flexion. 2. Tenderness to palpation. No edema, erythema, ecchymoses, rash or lesions. L DP/PT pulses intact. L medial and lateral malleolus normal to inspection without edema, ecchymoses or tenderness to palpation. Psych Appearance: grossly normal Affect: normal affect Course Vital Signs Vital signs: Vital Signs Temperature 98.3 F 03/13/22 02:06 Pulse 88 03/13/22 02:06 Respiratory Rate 22 03/13/22 02:06 Blood Pressure 119/82 03/13/22 02:06 Pulse Oximetry 97 03/13/22 02:06 Temperature 98.3 F 03/13/22 02:06 Temperature Source Temporal Artery Scan 03/13/22 02:06 Pulse 88 03/13/22 02:06 Respiratory Rate 22 03/13/22 02:06 Blood Pressure 119/82 03/13/22 02:06 Blood Pressure Position Sitting 03/13/22 02:06 Pulse Oximetry 97 03/13/22 02:06 Oxygen Delivery Method Room Air 03/13/22 02:06 Oxygen Flow Rate 0 03/13/22 02:06 Pain Level 8 03/13/22 02:06
[2022-03-13 03:49] VITALS: BP 129/82; PULSE 83; RESP 22; TEMP 36.6; O2SAT 95
--- NOTE | 2022-03-13 04:56 | DI.VRAD_ITS ---
PROCEDURE INFORMATION: Exam: XR Left Foot Exam date and time: 03/13/2022 2:48 AM Age: 42 years old Clinical indication: Pain; Foot; Left; Additional info: Crunch in left foot + great toe pain, R/O FX TECHNIQUE: Imaging protocol: Radiologic exam of the Left foot. Views: 3 or more views. COMPARISON: CR XR foot LT complete 11/13/2018 3:23 PM FINDINGS: Normal alignment. No acute fracture or dislocation. No significant joint space narrowing. IMPRESSION: No acute findings. Dictated and Authenticated by: Nilo Verde MD. Ordering:AKIRA Isaac MD
== END 2022-03-13 04:12 | disposition home or self-care (01) ==
PROVIDERS: Emergency Provider Physician Assistant; PCP Physician Assistant Medical
DX: S93.502A Unspecified sprain of left great toe, initial encounter (principal); F90.9 Attention-deficit hyperactivity disorder, unspecified type; J45.909 Unspecified asthma, uncomplicated; X58.XXXA Exposure to other specified factors, initial encounter
CPT/HCPCS: 99283; 73630; 99282

== ENCOUNTER 2022-03-16 03:21 | Emergency (ER) | payer MEDICAID, SELFPAY ==
[2022-03-16 03:24] VITALS: BP 125/70; PULSE 90; RESP 24; TEMP 36.4; O2SAT 98
--- NOTE | 2022-03-16 03:38 | W.ED.GENAD ---
Discharge Plan Disposition Patient Disposition: Home Condition: Good Discharge Details Clinical Impression: Pain of left great toe, Gout Primary Care Provider: Elizabeth Benton ED Provider: Jose Welch Home Meds and New Rx's Prescriptions: New prednisone 50 mg tablet 50 mg PO DAILY Qty: 4 0RF omeprazole 40 mg capsule,delayed release(DR/EC) 40 mg PO DAILY Qty: 30 0RF No Action amitriptyline 25 mg tablet 25 mg PO HS chlorthalidone 25 mg tablet 25 mg PO DAILY Qty: 90 3RF metoprolol succinate 100 mg tablet extended release 24 hr 100 mg PO DAILY Qty: 90 3RF verapamil 120 mg tablet extended release 240 mg PO DAILY Qty: 180 3RF ibuprofen 600 mg tablet 600 mg PO Q6H PRN (Reason: pain) Qty: 60 1RF naloxone [Narcan] 4 mg/actuation spray,non-aerosol 1 spray LOGAN ONCE PRN fluticasone propionate [Flovent HFA] 44 mcg/actuation HFA aerosol inhaler 2 puff inhalation BID Rx Instructions: administer with spacer oxycodone 5 mg tablet 10 mg PO 5X/DAY Label Comments: TAKE 2 TABLETS BY MOUTH FIVE TIMES DAILY lamotrigine 150 mg tablet 200 mg PO HS Label Comments: TAKE 1 TABLET BY MOUTH EVERY DAY AT BEDTIME pantoprazole 40 mg tablet,delayed release (DR/EC) 40 mg PO DAILY Label Comments: TAKE 1 TABLET BY MOUTH ONCE DAILY albuterol sulfate [ProAir HFA] 90 mcg/actuation HFA aerosol inhaler 2 puff INHALATION PRN PRN Label Comments: INL 2 PFS PO Q 4 H PRN zolpidem 12.5 mg tablet,ext release multiphase 12.5 mg PO HS Label Comments: TAKE 1 TABLET BY MOUTH EVERY DAY AT BEDTIME Discharge Instructions Instructions: Gout (ED) Additional Instructions: At this time the symptoms in your great toe are concerning for gout. Currently there is no evidence of infection. Please take of 1000mg Tylenol every 6 hours. Please avoid ice and heat. Please apply Voltaren gel to your foot every 6 hours at the affected areas. Please take the steroid prednisone as directed. Please take the omeprazole antiacid medication to help with your stomach irritation while taking the prednisone. Please avoid any meats, preserved meats, or cheeses while you have your symptoms as this can worsen gout. If you notice any worsening of your symptoms, or any new symptoms such as vomiting, diarrhea, fever, chills, shortness of breath, chest pain, numbness, weakness, or fainting , please return immediately to the emergency department for reevaluation. Please follow up with your primary care provider as soon as possible for reassessment and reevaluation. As always, it was a pleasure participating in your medical care today. Referrals: Elizabeth Benton [Primary Care Provider] - Medical Decision Making 42-year-old female with a past medical history of ADD, dental caries, GERD, irritable bowel syndrome, PTSD, presents today for evaluation of left great toe pain. Patient was here few days ago and was seen and assessed by Dr. Dallas. At that time she had a negative x-ray, and a notably benign physical exam. It was suspected that she had either early gout or a great toe sprain. She has been taking Tylenol at home and has been avoiding Motrin secondary to her irritable bowel. She has had continued and worsening of her pain. It is made worse with heat and ice. Of note the patient eats a notable amount of cheese, and states that she will sit down and eat an entire block of cheese on a regular basis including over the last few days. She also eats frequent and high amounts of meat. Patient states that her pain is made worse with movement. Otherwise improved by nothing aside for Tylenol. She denies any fever or chills. No other complaints at this time. Exam demonstrates a small amount of redness over the inner phalangeal joint, small area of swelling in that area. No fluid collection on bedside ultrasound to suggest abscess. No clinical evidence of a septic joint whatsoever. No fever or chills. Symptoms at this time are most concerning for gout. She does have a positive family history of gout in her son. Unfortunately I feel her symptoms are certainly worsened by her notable dietary component. Patient states that she develops bleeding whenever she takes ibuprofen so this is certainly not an option for her at this time. Especially with her irritable bowel syndrome I am concerned for starting some of are more commonly utilized gout treatments with their NSAID component or other GI irritation component. Because of this we will attempt a more conservative approach. We have cut up a Lidoderm patch and placed this on the area which did help improve her pain. We will do a short dose of steroids for home as well. We will recommend continued Tylenol, and also recommend topical Voltaren gel. Recommend notable dietary change. Discussed red flags for which to return. I have extensively reviewed the treatment plan and discharge instructions with the patient and their family. I have addressed all patient concerns at this time. The patient and family was made aware of what symptoms to monitor for that would warrant a return to the emergency department. Discussed the plan with the patient and family, they demonstrate verbal understanding and agreement with our assessment and plan at this time. The documentation in this chart was dictated using [employer] dictation software. Please excuse any dictation errors. HPI General Date/Time Provider Initiated Documentation: 03/16/22 03:23. HPI Narrative: 42-year-old female with a past medical history of ADD, dental caries, GERD, irritable bowel syndrome, PTSD, presents today for evaluation of left great toe pain. Patient was here few days ago and was seen and assessed by Dr. Dallas. At that time she had a negative x-ray, and a notably benign physical exam. It was suspected that she had either early gout or a great toe sprain. She has been taking Tylenol at home and has been avoiding Motrin secondary to her irritable bowel. She has had continued and worsening of her pain. It is made worse with heat and ice. Of note the patient eats a notable amount of cheese, and states that she will sit down and eat an entire block of cheese on a regular basis including over the last few days. She also eats frequent and high amounts of meat. Patient states that her pain is made worse with movement. Otherwise improved by nothing aside for Tylenol. She denies any fever or chills. No other complaints at this time. Related Data Home Medications Medication Instructions Recorded Confirmed naloxone 4 mg/actuation nasal 1 spray intranasal ONCE PRN 04/19/18 03/15/22 spray (Narcan) amitriptyline 25 mg tablet 25 mg PO HS 04/18/20 03/15/22 albuterol sulfate 90 mcg/actuation 2 puff inhalation PRN PRN 05/14/20 03/15/22 aerosol inhaler (ProAir HFA) pantoprazole 40 mg tablet,delayed 40 mg PO DAILY 05/14/20 03/15/22 release zolpidem 12.5 mg tablet,extended 12.5 mg PO HS 05/14/20 03/15/22 release,multiphase fluticasone propionate 44 2 puff inhalation BID 06/21/20 03/15/22 mcg/actuation HFA aerosol inhaler (Flovent HFA) oxycodone 5 mg tablet 10 mg PO 5X/DAY 11/19/20 03/15/22 lamotrigine 150 mg tablet 200 mg PO HS 12/07/20 03/15/22 ibuprofen 600 mg tablet 600 mg PO Q6H PRN pain #60 tabs 11/22/21 03/15/22 chlorthalidone 25 mg tablet 25 mg PO DAILY #90 tabs 12/31/21 03/15/22 metoprolol succinate 100 mg 100 mg PO DAILY #90 tabs 12/31/21 03/15/22 tablet,extended release 24 hr verapamil 120 mg tablet,extended 240 mg PO DAILY #180 tabs 12/31/21 03/15/22 release omeprazole 40 mg capsule,delayed 40 mg PO DAILY #30 caps 03/16/22 release prednisone 50 mg tablet 50 mg PO DAILY #4 tabs 03/16/22 Previous Rx's Medication Instructions Recorded ibuprofen 600 mg tablet 600 mg PO Q6H PRN pain #60 tabs 11/22/21 chlorthalidone 25 mg tablet 25 mg PO DAILY #90 tabs 12/31/21 metoprolol succinate 100 mg 100 mg PO DAILY #90 tabs 12/31/21 tablet,extended release 24 hr verapamil 120 mg tablet,extended 240 mg PO DAILY #180 tabs 12/31/21 release omeprazole 40 mg capsule,delayed 40 mg PO DAILY #30 caps 03/16/22 release prednisone 50 mg tablet 50 mg PO DAILY #4 tabs 03/16/22 Allergies Allergy/AdvReac Type Severity Reaction Status Date / Time labetalol AdvReac Intermediate nausea and Verified 01/02/22 14:01 vomiting lisdexamfetamine AdvReac Intermediate hypertensio Verified 01/02/22 14:01 [From María Elenae] n prednisone AdvReac Intermediate It makes Verified 01/02/22 14:01 me feel weird codeine AdvReac Mild Nausea Verified 01/02/22 14:01 morphine AdvReac Mild Nausea Verified 01/02/22 14:01 tramadol HCl [From Ultra] AdvReac Mild Nausea Verified 01/02/22 14:01 cariprazine [From Vraylar] AdvReac Unknown vomiting Verified 01/02/22 14:01 tamsulosin [From Flomax] AdvReac light Verified 01/02/22 14:01 headed/dizzy tegaderm tape AdvReac Intermediate ariza my Uncoded 01/02/22 14:01 skin General Stated Complaint: GenMedical JOEL: 4 Review of Systems All systems reviewed & are unremarkable except as noted in HPI and below PFSH All Active Problems Pain of left great toe (Acute) Gout (Chronic) Sprain of left foot (Acute) Sprain of left great toe (Acute) Postoperative pain (Acute) S/P laparoscopic assisted vaginal hysterectomy (LAVH) (Acute) Bilateral kidney stones (Acute) 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 L>R side. Normal CT & u/s of abdomen and pelvis. 05/01/21. Rx Cipro and Flagyl times 2W Constipation (Acute) Bipolar 1 disorder (Chronic) Borderline personality disorder (Acute) ANN (obstructive sleep apnea) (Chronic) Chronic GERD (Chronic) Acute diarrhea (Acute) Colitis (Acute) DVT prophylaxis (Acute) Medical History Abdominal pain Active asthma ADD (attention deficit disorder) Adnexal mass Amenorrhea Amnesia Pt. states when she gets too stressed out she blacks out, Last one was months ago' ASCUS with positive high risk HPV 09/2020. Will f/u at [facility] for colposcopy after issue with RLQ pain is addressed. ASCUS with positive high risk HPV 09/2020. Patient needs colposcopy Asthma Atypical squamous cells of undetermined significance with positive high risk human papillomavirus Calculus of kidney and ureter Carpal tunnel syndrome Causalgia of left upper extremity Cervical disc disease Cervical disc disorder with radiculopathy Chest pain at rest pt. denies this Chronic wrist pain Cold sore Conversion disorder tremor, stutter, weakness CVA tenderness Dizziness Elevated fasting blood sugar Essential tremor Gastritis GERD (gastroesophageal reflux disease) History of urinary stone Carcamo sign present Human papilloma virus (HPV) DNA test positive Hydronephrosis IBS (irritable bowel syndrome) Insomnia Irritable bowel syndrome with diarrhea Kidney stones Knee pain Left-sided thoracic back pain Median nerve compression in left forearm Medication management Medication monitoring encounter Memory loss Migraines Neuralgia Nicotine dependence Numbness and tingling Pain in pelvis Post-cholecystectomy syndrome post casey diarrhea Preop examination Psychophysiologic disorder PTSD (post-traumatic stress disorder) Rectal bleeding Right arm weakness Right ureteral stone Seizure (~04/14/18) Pt. stated she had one one time 5 years ago, and has never had once since Seizure disorder Snoring Spasm of back muscles Upper respiratory infection pt. denies this Ureteral calculi Surgical History Carpal tunnel syndrome, left s/p left ECTR DOS: 01/23/20 H/O left knee surgery H/O ovarian cystectomy 10/18/2020. Laparoscopic right ovarian cystectomy for persistent 4 cm right ovarian cyst. History of carpal tunnel surgery of left wrist History of colonoscopy (~07/09/20) Repair of umbilical hernia S/P appendectomy S/P cholecystectomy S/P knee surgery Family History Father Cerebral aneurysm Social History Smoking/Tobacco Use Status: Current every day Tobacco Type: cigarettes Smoking packs per day: 0.5 Smoking cigarettes per day: 10.0 Years smoked: 30 Smoking pack-years: 15.00 Smoking risk assessment performed?: Yes Alcohol Intake: never Drug use: Never Substance use type: does not use Household members: significant other and other Details: BF-Tanner. S-Chance. Moved to [place] 2mo ago to be w/ GF. Number of Children: 1 current occupation: Unemployed secondary to disability Current gender identity: female Do you feel safe at home: Yes Do you feel safe in your relationship?: Yes Female Reproductive History Menstrual Duration of menses: 3-5 days (Average flow minimal dysmenorrhea) control method: none Exam Narrative Exam Narrative: 1.Const: Well-nourished, Well-developed, appearing stated age 2.Eyes: PERRL, no conjunctival injection, and symmetrical lids. 3.ENT: Atraumatic external nose and ears. Moist MM. Neck: Symmetric, trachea midline, No thyromegaly. 4.CVS: +S1/S2, No murmurs or gallops. Peripheral pulses 2+ and equal in all extremities. Brisk capillary refill in all extremities. 5.RESP: Unlabored respiratory effort. Clear to auscultation bilaterally. No wheezes rales or rhonchi 6.GI: Soft, Nontender/Nondistended, No hepatosplenomegaly. No guarding or rebound. 7.MSK: Normocephalic/Atraumatic, Extremities w/o deformity or ttp No cyanosis or clubbing, Normal movement of all extremities. Left great toe demonstrates a small amount of erythema over the interphalangeal joint. No warmth to suggest cellulitis. Bedside ultrasound shows no evidence of fluctuance or abscess. Mild swelling in that area. Notable pain with movement of the great toe. No deformity otherwise. No subcutaneous crepitus to suggest necrotizing fasciitis 8.Skin: Warm, Dry. No rashes or lesions. 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 Sensation grossly intact, no focal neurologic deficits. 10.Psych: (AAO) x3. Appropriate mood and affect Course Vital Signs Vital signs: Vital Signs Temperature 36.4 C L 03/16/22 03:24 Pulse 90 03/16/22 03:24 Respiratory Rate 24 03/16/22 03:24 Blood Pressure 125/70 03/16/22 03:24 Pulse Oximetry 98 03/16/22 03:24 Temperature 36.4 C L 03/16/22 03:24 Temperature Source Temporal Artery Scan 03/16/22 03:24 Pulse 90 03/16/22 03:24 Respiratory Rate 24 03/16/22 03:24 Respiratory Effort 03/16/22 03:31 Respiratory Depth Normal 03/16/22 03:31 Respiratory Pattern Normal 03/16/22 03:31 Blood Pressure 125/70 03/16/22 03:24 Blood Pressure Position Sitting 03/16/22 03:24 Pulse Oximetry 98 03/16/22 03:24 Oxygen Delivery Method Room Air 03/16/22 03:24 Oxygen Flow Rate 0 03/16/22 03:24
[2022-03-16] MEDS: Lidocaine 5% Patch 1 PATCH TP (03:48)
[2022-03-16] MEDS: predniSONE 20 MG TAB 60 MG PO (03:52)
[2022-03-16 03:54] VITALS: BP 119/72; PULSE 81; RESP 22; TEMP 36.6; O2SAT 98
== END 2022-03-16 03:57 | disposition home or self-care (01) ==
PROVIDERS: Emergency Provider Student in an Organized Health Care Education/Training Program; PCP Physician Assistant Medical
DX: M79.675 Pain in left toe(s) (principal)
CPT/HCPCS: 99283; 99284; J7512

== ENCOUNTER 2022-03-31 15:17 | Emergency (ER) | payer MEDICAID, SELFPAY ==
[2022-03-31 15:36] VITALS: BP 118/99; PULSE 99; RESP 17; TEMP 36.9; O2SAT 97
--- NOTE | 2022-03-31 16:00 | DI.RAD_ITS ---
Exam(s) XR TOE LT GREAT EXAM: XR TOE LT GREAT CLINICAL HISTORY: injured a few weeks ago, caught on table. TECHNIQUE: 2D digital imaging was performed. Three views. COMPARISON: CR,XR XR FOOT LT COMPLETE from 03/13/2022 FINDINGS: BONES: No acute fracture is present. No bony destructive lesion is seen. JOINTS: No dislocation present. SOFT TISSUE: swelling around great toe. No foreign body or gas collection. IMPRESSION: No evidence of acute fracture, dislocation, or subluxation. DATA REPOSITORY: RADIATION DOSE DELIVERED:
--- NOTE | 2022-03-31 16:01 | ED.GENADUL_ITS ---
Discharge Plan Disposition Patient Disposition: Home Condition: Stable Discharge Details Clinical Impression: Gout, Acute hypokalemia Primary Care Provider: Elizabeth Benton ED Provider: Mili Arnold Home Meds and New Rx's Prescriptions: New prednisone 10 mg tablet 10 mg PO DIRECTED Qty: 30 0RF Rx Instructions: 50mg x 2 days 40 mg x 2 days 30mg x 2 days 20mg x 2 days 10mg x 2 days Continued amitriptyline 25 mg tablet 25 mg PO HS chlorthalidone 25 mg tablet 25 mg PO DAILY Qty: 90 3RF metoprolol succinate 100 mg tablet extended release 24 hr 100 mg PO DAILY Qty: 90 3RF verapamil 120 mg tablet extended release 240 mg PO DAILY Qty: 180 3RF ibuprofen 600 mg tablet 600 mg PO Q6H PRN (Reason: pain) Qty: 60 1RF naloxone [Narcan] 4 mg/actuation spray,non-aerosol 1 spray LOGAN ONCE PRN fluticasone propionate [Flovent HFA] 44 mcg/actuation HFA aerosol inhaler 2 puff inhalation BID Rx Instructions: administer with spacer oxycodone 5 mg tablet 10 mg PO 5X/DAY Label Comments: TAKE 2 TABLETS BY MOUTH FIVE TIMES DAILY lamotrigine 150 mg tablet 200 mg PO HS Label Comments: TAKE 1 TABLET BY MOUTH EVERY DAY AT BEDTIME pantoprazole 40 mg tablet,delayed release (DR/EC) 40 mg PO DAILY Label Comments: TAKE 1 TABLET BY MOUTH ONCE DAILY albuterol sulfate [ProAir HFA] 90 mcg/actuation HFA aerosol inhaler 2 puff INHALATION PRN PRN Label Comments: INL 2 PFS PO Q 4 H PRN zolpidem 12.5 mg tablet,ext release multiphase 12.5 mg PO HS Label Comments: TAKE 1 TABLET BY MOUTH EVERY DAY AT BEDTIME prednisone 50 mg tablet 50 mg PO DAILY Qty: 4 0RF omeprazole 40 mg capsule,delayed release(DR/EC) 40 mg PO DAILY Qty: 30 0RF Discharge Instructions Instructions: Gout (ED), Hypokalemia (ED) Additional Instructions: Your labs and exam are most consistent with gout. This may be associated with a rebound flare given your recent treatment. Please encourage hydration. Please encourage rest, ice, elevation. You may continue with Tylenol as needed for discomfort, please take as directed on the packaging. You may also augment this with the oxycodone as previously prescribed. Please take the prednisone as prescribed, this is a taper so make sure that you are taking the right dosing every day. As we discussed, your potassium was low and I would like for you to begin your oral supplementation once again, please continue with this. Please keep your upcoming appointment with your primary care provider. If you develop fever/chills, increased pain or other new/worsening symptom please seek care urgently once again. Referrals: Elizabeth Benton [Primary Care Provider] - Discharge Data Discharge Date/Time-TO BE ENTERED AT DEPARTURE: 03/31/22 18:12 Medical Decision Making Patient is a 42-year-old female, accompanied by significant other, with chief complaint of right great toe pain. She was seen here a few weeks for same complaint, diagnosed with gout and started on steroids. She reports that just a few days after being home from her most recent visit, she did significantly injure her great toe when she caught it on a table stubbing her toe. Has sonia nued to have severe pain that is limiting her ambulation. Patient states that she is having some tingling in the toe although no roosevelt numbness. Pain does not radiate up into the foot or leg but she does have some crossover to the second toe. Reviewed previous notes. Exam, patient appears nontoxic. She does come in in a wheelchair secondary to the discomfort. Exam of the left great toe shows the foot to be neurovascularly intact with 2+ distal pulses. She does have intact sensation although she reports is slightly diminished compared to the contralateral side. Over the base of the great toe, patient does have some swelling and ecchymosis. She has pain over this area and some mild discomfort at the base of the second toe. No pain proximal to this or at the plantar surface. Intact capillary refill. No rash or break in the skin is appreciated. FINDINGS: BONES:? No acute fracture is present. No bony destructive lesion is seen. JOINTS: No dislocation present. SOFT TISSUE:? swelling around great toe.? No foreign body or gas collection. IMPRESSION: No evidence of acute fracture, dislocation, or subluxation. Discussed these findings with the patient. She still having some discomfort. She has not taken anything for her discomfort this afternoon, we will give her a dose of acetaminophen. Again, her exam is not consistent with a vascular disorder. Considered however for chronic sympathetic pain source. Will obtain baseline labs, particular obtain uric acid. If this is elevated, could consider continued gout treatment. However, if these are negative and the patient's not can responding to any type of gout treatment, will plan to refer to podiatry. Patient potassium level at 2.7. She has been like this historically. He states that she typically tolerates and replenishment well orally but has not been taking her oral potassium. We will replenish this now and continue to have her taking potassium daily. Her white count was also elevated at 14. But, her exam is not consistent with infection. Rather, I am questioning if this could be associated with pain or other recent steroid dosing. Creatinine is elevated 1.4 which is baseline for the patient. Her uric acid is elevated consistent with my concern for potential gout with possible rebound flare. We will have her begin a longer dose of steroids and with a taper. She has an appointment next week with primary care for follow-up. Will have her continue with her oral K+. Return precautions discussed. All of her quesitons and concerns were addressed, she is in agreement with this plan. [facility] General Date/Time Provider Initiated Documentation: 03/31/22 15:39 . Limitations to Documentation: no limitations . Information obtained by: patient, family, RN notes reviewed and old records reviewed . History of Present Illness 42 year old F presents to the emergency department with the chief complaint of left great toe pain, described as severe, with intensity rated at 8. Quality is described as stabbing, and is localized to the left and lower extremity. Patient reports no radiation. Patient started experiencing this week(s) and it has been constant. Immobilization improves symptom(s), Movement worsens symptoms . Patient notes no other symptoms.. Patient did receive the following treatments prior to arrival, other (APAP) Related Data Home Medications Medication Instructions Recorded Confirmed naloxone 4 mg/actuation nasal 1 spray intranasal ONCE PRN 04/19/18 03/31/22 spray (Narcan) amitriptyline 25 mg tablet 25 mg PO HS 04/18/20 03/31/22 albuterol sulfate 90 mcg/actuation 2 puff inhalation PRN PRN 05/14/20 03/31/22 aerosol inhaler (ProAir HFA) pantoprazole 40 mg tablet,delayed 40 mg PO DAILY 05/14/20 03/31/22 release zolpidem 12.5 mg tablet,extended 12.5 mg PO HS 05/14/20 03/31/22 release,multiphase fluticasone propionate 44 2 puff inhalation BID 06/21/20 03/31/22 mcg/actuation HFA aerosol inhaler (Flovent HFA) oxycodone 5 mg tablet 10 mg PO 5X/DAY 11/19/20 03/31/22 lamotrigine 150 mg tablet 200 mg PO HS 12/07/20 03/31/22 ibuprofen 600 mg tablet 600 mg PO Q6H PRN pain #60 tabs 11/22/21 03/31/22 chlorthalidone 25 mg tablet 25 mg PO DAILY #90 tabs 12/31/21 03/31/22 metoprolol succinate 100 mg 100 mg PO DAILY #90 tabs 12/31/21 03/31/22 tablet,extended release 24 hr verapamil 120 mg tablet,extended 240 mg PO DAILY #180 tabs 12/31/21 03/31/22 release omeprazole 40 mg capsule,delayed 40 mg PO DAILY #30 caps 03/16/22 03/31/22 release prednisone 50 mg tablet 50 mg PO DAILY #4 tabs 03/16/22 03/31/22 prednisone 10 mg tablet 10 mg PO DIRECTED #30 tabs 03/31/22 Previous Rx's Medication Instructions Recorded ibuprofen 600 mg tablet 600 mg PO Q6H PRN pain #60 tabs 11/22/21 chlorthalidone 25 mg tablet 25 mg PO DAILY #90 tabs 12/31/21 metoprolol succinate 100 mg 100 mg PO DAILY #90 tabs 12/31/21 tablet,extended release 24 hr verapamil 120 mg tablet,extended 240 mg PO DAILY #180 tabs 12/31/21 release omeprazole 40 mg capsule,delayed 40 mg PO DAILY #30 caps 03/16/22 release prednisone 50 mg tablet 50 mg PO DAILY #4 tabs 03/16/22 prednisone 10 mg tablet 10 mg PO DIRECTED #30 tabs 03/31/22 Allergies Allergy/AdvReac Type Severity Reaction Status Date / Time labetalol AdvReac Intermediate nausea and Verified 03/31/22 15:43 vomiting lisdexamfetamine AdvReac Intermediate hypertensio Verified 03/31/22 15:43 [From Karla] n prednisone AdvReac Intermediate It makes Verified 03/31/22 15:43 me feel weird codeine AdvReac Mild Nausea Verified 03/31/22 15:43 morphine AdvReac Mild Nausea Verified 03/31/22 15:43 tramadol HCl [From Ultram] AdvReac Mild Nausea Verified 03/31/22 15:43 cariprazine [From Vraylar] AdvReac Unknown vomiting Verified 03/31/22 15:43 tamsulosin [From Flomax] AdvReac light Verified 03/31/22 15:43 headed/dizzy tegaderm tape AdvReac Intermediate ariza my Uncoded 03/31/22 15:43 skin General Stated Complaint: Orthopedic JOEL: 4 Review of Systems Constitutional Constitutional: Reports as per HPI, Denies chills, Denies fever(s) and Denies weakness Respiratory Respiratory: Reports as per HPI and Denies cough Musculoskeletal Musculoskeletal: Reports as per HPI Integumentary/Breasts Skin/Breast: Reports as per HPI, Denies rash and Denies wounds Neurologic Neurologic: Reports as per HPI, Denies paresthesias and Denies weakness PFSH All Active Problems (Updated 04/13/22 @ 00:03 by TRACEE CRUZ) Pain of left great toe (Acute) Gout (Chronic) Gout (Chronic) Acute hypokalemia (Acute) Postoperative pain (Acute) S/P laparoscopic assisted vaginal hysterectomy (LAVH) (Acute) Bilateral kidney stones (Acute) 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 L>R side. Normal CT & u/s of abdomen and pelvis. 05/01/21. Rx Cipro and Flagyl times 2W Constipation (Acute) Bipolar 1 disorder (Chronic) Borderline personality disorder (Acute) ANN (obstructive sleep apnea) (Chronic) Chronic GERD (Chronic) Acute diarrhea (Acute) Colitis (Acute) DVT prophylaxis (Acute) Medical History Abdominal pain Active asthma ADD (attention deficit disorder) Adnexal mass Amenorrhea Amnesia Pt. states when she gets too stressed out she blacks out, Last one was months ago' ASCUS with positive high risk HPV 09/2020. Will f/u at [facility] for colposcopy after issue with RLQ pain is addres sed. ASCUS with positive high risk HPV 09/2020. Patient needs colposcopy Asthma Atypical squamous cells of undetermined significance with positive high risk human papillomavirus Calculus of kidney and ureter Carpal tunnel syndrome Causalgia of left upper extremity Cervical disc disease Cervical disc disorder with radiculopathy Chest pain at rest pt. denies this Chronic wrist pain Cold sore Conversion disorder tremor, stutter, weakness CVA tenderness Dizziness Elevated fasting blood sugar Essential tremor Gastritis GERD (gastroesophageal reflux disease) History of urinary stone Carcamo sign present Human papilloma virus (HPV) DNA test positive Hydronephrosis IBS (irritable bowel syndrome) Insomnia Irritable bowel syndrome with diarrhea Kidney stones Knee pain Left-sided thoracic back pain Median nerve compression in left forearm Medication management Medication monitoring encounter Memory loss Migraines Neuralgia Nicotine dependence Numbness and tingling Pain in pelvis Post-cholecystectomy syndrome post casey diarrhea Preop examination Psychophysiologic disorder PTSD (post-traumatic stress disorder) Rectal bleeding Right arm weakness Right ureteral stone Seizure (~04/14/18) Pt. stated she had one one time 5 years ago, and has never had once since Seizure disorder Snoring Spasm of back muscles Upper respiratory infection pt. denies this Ureteral calculi Surgical History Carpal tunnel syndrome, left s/p left ECTR DOS: 01/23/20 H/O left knee surgery H/O ovarian cystectomy 10/18/2020. Laparoscopic right ovarian cystectomy for persistent 4 cm right ovarian cyst. History of carpal tunnel surgery of left wrist History of colonoscopy (~07/09/20) Repair of umbilical hernia S/P appendectomy S/P cholecystectomy S/P knee surgery Family History Father Cerebral aneurysm Social History Smoking/Tobacco Use Status: Current every day Tobacco Type: cigarettes Smoking packs per day: 0.5 Smoking cigarettes per day: 10.0 Years smoked: 30 Smoking pack-years: 15.00 Smoking risk assessment performed?: Yes Alcohol Intake: never Drug use: Never Substance use type: does not use Household members: significant other and other Details: BF-Tanner. S-Jose Roberto. Moved to [place] 2mo ago to be w/ GF. Number of Children: 1 current occupation: Unemployed secondary to disability Current gender identity: female Do you feel safe at home: Yes Do you feel safe in your relationship?: Yes Female Reproductive History Menstrual Duration of menses: 3-5 days (Average flow minimal dysmenorrhea) control method: none Exam Const General: cooperative, healthy appearing, uncomfortable, no acute distress, well developed and well groomed Nutritional Appearance: average body habitus and well nourished Orientation: alert and awake Resp Effort & Inspection: normal respiratory effort, able to speak in complete sentences and no respiratory distress Cardio Rate: regular rate Rhythm: regular rhythm Skin General skin exam: no rashes or lesions noted Lesions: no lesions Rashes: no rashes Trauma: no lacerations or abrasions Neuro General: patient alert and patient awake Cognition: normal cognition Speech: speech normal Gait: antalgic (in wheelchair majority of time ) Motor: muscle tone normal throughout Sensory Exam: no sensory deficits noted Extrem Ankle/foot/toe images: 1. Area of maximal discomfort and discoloration. This does not. extend onto the plantar surface but is noted along lateral border. Pain extends to the proximal aspect of the. based of the 2nd toe as well. No spreading of the erythema. Area is warm to the touch and swollen. No area of fluctuance. Intact sensation, intact capillary refill. Limited ROM associated with pain. 2+ distal. pulses at DP and PT. No pain with palpation elsewhere about the foot. Full ROM of the ankle. No break in the skin. Psych Appearance: grossly normal and well kempt Mental Status: mental status grossly normal Speech and Movement: speech and movement normal Course Vital Signs Vital signs: Vital Signs Temperature 36.9 C 03/31/22 15:36 Pulse 99 H 03/31/22 15:36 Respiratory Rate 17 03/31/22 15:36 Blood Pressure 118/99 H 03/31/22 15:36 Pulse Oximetry 97 03/31/22 15:36 Temperature 36.9 C 03/31/22 15:36 Temperature Source Temporal Artery Scan 03/31/22 15:36 Pulse 99 H 03/31/22 15:36 Respiratory Rate 17 03/31/22 15:36 Respiratory Effort 03/31/22 15:40 Blood Pressure 118/99 H 03/31/22 15:36 Blood Pressure Position Sitting 03/31/22 15:36 Pulse Oximetry 97 03/31/22 15:36 Oxygen Delivery Method Room Air 03/31/22 15:36 Oxygen Flow Rate 0 03/31/22 15:36 Pain Level 8 03/31/22 15:41
[2022-03-31 17:33] LABS: Abs Immature Grans 0.06 10^3/uL (0.0-0.06); Absolute Basophil Count 0.07 10^3/uL (0.0-0.2); Absolute Lymphocyte Count 3.38 10^3/uL (1.2-3.4); Absolute Monocyte Count 0.68 10^3/uL (0.1-0.8); Absolute Neutrophil Count 9.74 10^3/uL (1.2-6.7); Basophils % 0.5; Eosinophils % 1.6; HCT 43.8 % (36.0-46.0); HGB 14.6 g/dL (11.2-15.7); Immature Grans % 0.4; Lymphocytes % 23.9; MCH 30.9 pg (27.0-33.0); MCHC 33.3 % (32.0-36.0); MCV 93 fL (80-95); MPV 9.4 fL (8.0-11.0); Monocytes % 4.8; Neutrophils % 68.8; Platelet Count 394 10^3/uL (130-400); RBC 4.73 10^6/uL (3.93-5.22); RDW 12.1 % (11.7-14.6); RDW-SD 41.9 fL; WBC 14.15 10^3/uL (4.4-10.8)
[2022-03-31 17:34] LABS: Absolute Eosinophil Count 0.23 10^3/uL (0.0-0.7)
[2022-03-31] MEDS: Acetaminophen 500 MG TAB 1000 MG PO (17:36)
[2022-03-31 17:44] LABS: ALT 39 U/L (14-59); AST 42 U/L (15-37); Albumin 3.6 g/dL (3.4-5.0); Alkaline Phosphatase 134 U/L (46-116); Anion Gap 10.7 mmol/L (3-11); BUN 19 mg/dL (7-18); Bilirubin, Total 0.3 mg/dL (0.2-1.0); CO2 33.3 mmol/L (21.0-32.0); CREATININE 1.4 mg/dL (0.55-1.02); Calcium 9.7 mg/dL (8.5-10.1); Chloride 95 mmol/L (98-107); Estimated GFR 47.58 (mL/min/1.73m2); Glucose 182 mg/dL (74-106); Sodium 139 mmol/L (136-145); Total Protein 8.3 g/dL (6.4-8.2); Uric Acid 10.4 mg/dL (2.6-6.0)
[2022-03-31 17:48] LABS: Potassium 2.7 mmol/L (3.5-5.1)
[2022-03-31] MEDS: Potassium Chloride 20 MEQ TABCR 40 MEQ PO (18:10)
== END 2022-03-31 18:12 | disposition home or self-care (01) ==
PROVIDERS: Emergency Provider Physician Assistant; PCP Physician Assistant Medical
DX: M10.9 Gout, unspecified (principal); E87.6 Hypokalemia; J45.909 Unspecified asthma, uncomplicated; G40.909 Epilepsy, unspecified, not intractable, without status epilepticus; Z79.51 Long term (current) use of inhaled steroids
CPT/HCPCS: 80053; 99283; 73660; 84550; 85025; 99284

== ENCOUNTER 2022-08-22 00:43 | Outpatient (CLI) | payer MEDICAID, SELFPAY ==
--- NOTE | 2022-08-22 | DI.US_ITS ---
Exam(s) US ABDOMEN LIMITED EXAM: US ABDOMEN LIMITED CLINICAL HISTORY: R10.9 RUQ PAIN MESH UMBILICUS ABNL LEVELS SERUM ENZYMES R74.8 TECHNIQUE: Ultrasound abdomen performed using standard protocol. COMPARISON: US US PELVIS TRANSVAGINAL from 04/17/[address] ABDOMEN PELVIS W from 06/04/[address] ABDOMEN PELVIS WO from 09/30/2021 FINDINGS: There is no ascites evident. LIVER: Liver is hyperechoic indicating steatosis. In the right hepatic lobe there is a 1.8 x 1.7 x 1.5 cm hypoechoic nodule which is possibly a cyst but was not evident on CT scan September 2. Suspect that it may represent-correlate the finding in the right hepatic lobe on the prior CT sca ns of 06/04/2021 and 09/30/2021. Can be further investigated with MRI. GALLBLADDER/BILIARY: Gallbladder surgically absent. The common hepatic duct isnot dilated, measuring 3-4mm at the level of paul hepatis. PANCREAS: There is no evidence of pancreatic mass nor dilatation of the pancreatic duct. RIGHT KIDNEY:No evidence of solid mass, calculus, nor hydronephrosis. Small 9 millimeter 9 cyst noted . IMPRESSION: 1. Gallbladder surgically absent. Biliary tree is not dilated. 2. Hepatic steatosis. Also focal 17 by 18 x 15 mm finding in the right hepatic lobe which may corre spond to finding on the CT scan. Can be further investigated with MRI. 3. There is no ascites. DATA REPOSITORY:
--- OUTSIDE RECORDS SUMMARY | 2022-08-22 00:45 | XMS_ITS | Continuity of Care Document ---
Author Name Unknown Organization [facility] Address [address] [place] [address] Care Team Providers Care Fisheries Officer Name Role Phone Elizabeth Benton Primary Care Physician Encounter [facility] Date(s): 08/12/22 - 08/12/22 [facility] [address] [place] [address] Discharge Disposition: Home Allergies, Adverse Reactions, Alerts Substance Reaction Severity Status ADHESIVE TAPE Unknown Active codeine Unknown Active labetalol Vomiting Nausea Unknown Active morphine Vomiting Unknown Active silver nitrate ophthalmic 1 Other Unknown Active acetaminophen-hydrocodone Unknown Ac tive predniSONE 2 confusion, fogginess Unknown Active lisdexamfetamine Unknown Active TraZODone Hydrochloride suicidal ideation Unknown Active cariprazine Vomiting Unknown Active Vraylar Vomiting Moderate Active 1Outside Source Comment: Skin ariza 2only mild side effect Assessment and Plan Future Appointments Future Scheduled Tests Radiology* MRI Spine Cervical w/o Contrast 01/19/22 * US Abdomen Limited 08/12/22 * US Pelvic Non OB Comp w/ Transvag 10/07/21 Immunizations Given and Recorded Vaccine Date Status Refusal Reason SARS-CoV-2 (COVID-19) mRNA-1273 vaccine 08/05/20 R ecorded SARS-CoV-2 (COVID-19) mRNA-1273 vaccine 07/08/20 R ecorded pneumococcal 23-polyvalent vaccine 03/09/16 Record ed tetanus/diphth/pertuss (Tdap) adult/adol 09/19/15 Recorded measles/mumps/rubella virus vaccine 03/09/00 Recor ded Medications ALPRAZolam 1 mg oral tablet 1 mg = 1 tab, 0 Refill(s) Start Date: 08/13/22 Status: Ordered amitriptyline 25 mg oral tablet 25 mg = 1 tab, Oral, every night at bedtime, TAKE 1 TABLET BY MOUTH EVERY DAY AT BEDTIME, # 90 tab,0 Refill(s), Pharmacy: [facility] #[id number] Start Date: 06/27/22 Status: Ordered chlorthalidone 25 mg oral tablet TAKE 1 TABLET BY MOUTH DAILY Start Date: 10/02/21 Status: Ordered colchicine 0.6 mg oral capsule 0.6 mg = 1 cap, Oral, BID, # 30 cap, 0 Refill(s), Pharmacy: [id number] Start Date: 08/12/22 Stop Date: 08/27/22 Status: Ordered colchicine 0.6 mg oral tablet 0.6 mg = 1 tab, Oral, BID, # 14 tab, 1 Refill(s), Pharmacy: [id number] Start Date: 05/20/22 Stop Date: 06/03/22 Status: Ordered enalapril 10 mg oral tablet TAKE 1 TABLET BY MOUTH DAILY Start Date: 08/13/22 Status: Ordered Flovent HFA 44 mcg/inh inhalation aerosol INHALE 2 PUFFS BY MOUTH TWICE DAILY Start Date: 10/02/21 Status: Ordered ibuprofen 600 mg oral tablet 60 EA, TAKE 1 TABLET BY MOUTH EVERY 6 HOURS NEEDED FOR PAIN, 0 Refill(s) Start Date: 01/15/22 Status: Ordered LaMICtal 200 mg oral tablet 200 mg = 1 tab, Oral, Daily, take at bedtime, # 90 tab, 0 Refill(s), Pharmacy: [id number] Start Date: 05/19/22 Stop Date: 08/17/22 Status: Ordered LORazepam 0.5 mg oral tablet 0 Refill(s) Start Date: 08/13/22 Status: Ordered Metoprolol Succinate ER 100 mg oral tablet, extended release TAKE 1 TABLET BY MOUTH DAILY Start Date: 10/02/21 Status: Ordered Narcan 4 mg/0.1 mL nasal spray INSTILL 1 SPRAY NEEDED INTO ONE SIDE OF NOSTRIL Start Date: 10/02/21 Status: Ordered omeprazole 40 mg oral delayed release capsule TAKE 1 CAPSULE BY MOUTH DAILY Start Date: 08/13/22 Status: Ordered ondansetron 4 mg oral tablet 4 mg = 1 tab, Oral, cap, 0 Refill(s) Start Date: 08/13/22 Status: Ordered oxyCODONE 10 mg oral tablet 10 mg = 1 tab, Oral, 5 times per day, # 140 tab, 0 Refill(s), Pharmacy: [id number] Start Date: 08/11/22 Stop Date: 09/08/22 Status: Ordered oxyCODONE 10 mg oral tablet 10 mg = 1 tab, Oral, 5 times per day, # 140 tab, 0 Refill(s), Pharmacy: [id number] Start Date: 08/11/22 Stop Date: 09/08/22 Status: Ordered oxyCODONE 10 mg oral tablet 10 mg = 1 tab, Oral, 5 times per day, # 140 tab, 0 Refill(s), Pharmacy: [id number] Start Date: 05/19/22 Stop Date: 06/16/22 Status: Ordered pantoprazole 40 mg oral delayed release tablet See Instructions, TAKE 1 TABLET BY MOUTH EVERY DAY, # 90 tab, 1 Refill(s), Pharmacy: [facility] #[id number] Start Date: 04/10/22 Status: Ordered spironolactone 25 mg oral tablet TAKE 1 TABLET BY MOUTH TWICE DAILY Start Date: 08/13/22 Status: Ordered verapamil 120 mg/12 hours oral tablet, extended release 180 EA, TAKE 2 TABLETS BY MOUTH DAILY, 0 Refill(s) Start Date: 10/02/21 Status: Ordered zolpidem 12.5 mg oral tablet, extended release 12.5 mg = 1 tab, Oral, every day at bedtime, PRN as needed for insomnia, # 30 tab, 5 Refill(s), Pharmacy: [id number] Start Date: 08/11/22 Stop Date: 02/07/23 Status: Ordered Problem List Condition Confirmation Course Effective Dates Status Health Status Informant Abdominal pain Confirmed Active Amnesia Confirmed Active Asthma Confirmed Active Attention deficit hyperactivity disorder Confirmed Active Atypical squamous cells of undetermined significance Confirmed 10/24/20 Active Bipolar disorder Confirmed Active Borderline personality disorder Confirmed Active Calculus of kidney and ureter Confirmed 05/20/20 Active Carpal tunnel syndrome Confirmed 02/08/20 Active Cervical disc disorder with radiculopathy Confirmed 04/30/19 Active Chronic primary headache Confirmed 06/10/18 Active Clostridioides difficile infection Confirmed 12/12/20 Active Colitis Confirmed 11/20/20 Active Complex regional pain syndrome Confirmed 02/08/20 Active Diverticular disease Confirmed Active Essential hypertension Confirmed 11/20/20 Active Essential tremor Confirmed Active Left foot pain Confirmed Active Gastritis Confirmed Active Gastroesophageal reflux disease Confirmed 11/19/20 Active Gout Confirmed Active Long-term use of high-risk medication Confirmed Active H/O: urinary stone Confirmed Active Human papillomavirus deoxyribonucleic acid test positive, high risk on cervical specimen Confirmed Active Hydronephrosis Confirmed Active Hypertensive disorder Confirmed Active Hypertensive urgency Confirmed 08/17/19 Active Insomnia Confirmed 06/17/18 Active Insomnia Confirmed Active Irritable bowel syndrome with diarrhea Confirmed 06/06/20 Active Kidney stone Confirmed Active Knee pain Confirmed Active Medication monitoring Confirmed 02/11/18 Active Migraine Confirmed Active Nausea and vomiting Confirmed 12/04/20 Active Nicotine dependence Confirmed Active Obstructive sleep apnea syndrome Confirmed Active Pain in pelvis Confirmed 10/16/20 Active Pain of left wrist Confirmed 03/18/20 Active Periodic leg movements of sleep Confirmed 06/17/18 Active Posttraumatic stress disorder Confirmed Active Psychophysiologic insomnia Confirmed Active Seizure Confirmed 04/14/18 Active Shoulder joint pain Confirmed Active Snoring Confirmed 06/10/18 Active Spasm of back muscles Confirmed 11/11/18 Active Umbilical hernia Confirmed 01/20/21 Active Procedures Procedure Date Related Diagnosis Body Site Status LAPS RPR RECURRENT INCISIONA L HERNIA REDUCIBLE 02/27/21 Completed Laparoscopic excision of cys t of right ovary (procedure) 10/18/20 Completed Colonoscopy 07/08/20 Completed Neuroplasty and%2For transpo sition; median nerve at carpal tunnel 01/23/20 Co mpleted Cholecystectomy; 08/16/08 Complete d Cholecystectomy; 08/15/08 Complete d Appendectomy; Completed Procedure on knee 1 Compl eted Removal of gallbladder Co mpleted Repair of umbilical hernia Completed Repair of umbilical hernia (procedure) Completed 1orthopedic surgery Social History Social History Type Response Tobacco Current everyday tob acco user Tobacco Use:. 1/2 to 1 pack per day per day. 25 year(s). Total pack years: 30. Sex Female Patient Care team information Care Team Personnel Name: Elizabeth Benton PA-C Position: Physician Member Role: Primary Care Physician Address: Address: [address] [place] [id number]
--- OUTSIDE RECORDS SUMMARY | 2022-08-22 00:45 | XMS_ITS | Continuity of Care Document ---
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 Name Role Phone Elizabeth Benton Primary Care Physician [phone] Encounter [facility] Date(s): 01/16/22 - 01/16/22 [facility] [address] [place] [address] Encounter Diagnosis Cervical disc disorder with radiculopathy(Discharge Diagnosis) - 01/16/22 Long-term use of high-risk medication(Discharge Diagnosis) - 01/16/22 Discharge Disposition: Home or Self Care Attending Physician: Elizabeth Benton PA-C Admitting Physician: Elizabeth Benton PA-C Allergies, Adverse Reactions, Alerts Substance Reaction Severity Status ADHESIVE TAPE Unknown Active codeine Unknown Active labetalol Vomiting Nausea Unknown Active morphine Vomiting Unknown Active acetaminophen-hydrocodone Unknown Ac tive predniSONE Unknown Active lisdexamfetamine Unknown Active cariprazine Vomiting Unknown Active Vraylar Vomiting Moderate Active Assessment and Plan Future Appointments Future Scheduled Tests Radiology* US Pelvic Non OB Comp w/ Transvag 10/07/21 Immunizations Given and Recorded Vaccine Date Status Refusal Reason SARS-CoV-2 (COVID-19) mRNA-1273 vaccine 08/05/20 R ecorded SARS-CoV-2 (COVID-19) mRNA-1273 vaccine 07/08/20 R ecorded pneumococcal 23-polyvalent vaccine 03/09/16 Record ed measles/mumps/rubella virus vaccine 03/09/00 Recor ded Medications ALPRAZolam 1 mg oral tablet 1 mg = 1 tab, Oral, BID, # 60 tab, 0 Refill(s), Pharmacy: [facility] #[id number] Start Date: 11/28/21 Status: Ordered ALPRAZolam 1 mg oral tablet 1 mg = 1 tab, Oral, BID, 60 EA, TAKE 1 TABLET BY MOUTH TWICE DAILY, # 60 tab, 1 Refill(s), Pharmacy: [facility] #[id number] Start Date: 08/29/21 Stop Date: 10/28/21 Status: Ordered amitriptyline 25 mg oral tablet TAKE 1 TABLET BY MOUTH EVERY DAY AT BEDTIME Start Date: 10/02/21 Status: Ordered chlorthalidone 25 mg oral tablet TAKE 1 TABLET BY MOUTH DAILY Start Date: 10/02/21 Status: Ordered Flovent HFA 44 mcg/inh inhalation [...] bedtime, # 90 tab, 0 Refill(s), Pharmacy: [facility]#[id number] Start Date: 01/16/22 Stop Date: 04/16/22 Status: Ordered lamoTRIgine 200 mg oral tablet 30 EA, TAKE 1 TABLET BY MOUTH DAILY TAKE AT BEDTIME, 0 Refill(s) Start Date: 01/15/22 Status: Ordered Metoprolol Succinate ER 100 mg oral tablet, extended release TAKE 1 TABLET BY MOUTH DAILY Start Date: 10/02/21 Status: Ordered Narcan 4 mg/0.1 mL nasal spray INSTILL 1 SPRAY NEEDED INTO ONE SIDE OF NOSTRIL Start Date: 10/02/21 Status: Ordered oxyCODONE 10 mg oral tablet 10 mg = 1 tab, Oral, 5 times per day, # 140 tab, 0 Refill(s), Pharmacy: [facility] #[id number] Start Date: 01/16/22 Stop Date: 02/13/22 Status: Ordered oxyCODONE 10 mg oral tablet 10 mg = 1 tab, Oral, 5 times per day, # 140 tab, 0 Refill(s), Pharmacy: [facility] #[id number] Start Date: 01/16/22 Stop Date: 02/13/22 Status: Ordered oxyCODONE 10 mg oral tablet 10 mg = 1 tab, Oral, 5 times per day, # 140 tab, 0 Refill(s), Pharmacy: [facility] #[id number] Start Date: 01/16/22 Stop Date: 02/13/22 Status: Ordered pantoprazole 40 mg oral delayed release tablet TAKE 1 TABLET BY MOUTH ONCE DAILY Start Date: 10/02/21 Status: Ordered penicillin V potassium 500 mg oral tablet 40 EA, TAKE 1 TABLET BY MOUTH FOUR TIMES DAILY FOR 10 DAYS, 0 Refill(s) Start Date: 01/15/22 Status: Ordered verapamil 120 mg/12 hours oral tablet, extended release 180 EA, TAKE 2 TABLETS BY MOUTH DAILY, 0 Refill(s) Start Date: 10/02/21 Status: Ordered zolpidem 12.5 mg oral tablet, extended release 12.5 mg = 1 tab, Oral, every day at bedtime, PRN as needed for insomnia, # 30 tab, 5 Refill(s), Pharmacy: [facility] #[id number] Start Date: 09/24/21 Stop Date: 03/23/22 Status: Ordered Problem List Condition Confirmation Course [...] Confirmed 11/20/20 Active Essential tremor Confirmed Active Gastritis Confirmed Active Gastroesophageal reflux disease Confirmed 11/19/20 Active Long-term use of high-risk medication Confirmed Active H/O: urinary stone Confirmed Active Human papillomavirus deoxyribonucleic acid test positive, high risk on cervical specimen Confirmed Active Hydronephrosis Confirmed Active Hypertensive disorder Confirmed Active Hypertensive urgency Confirmed 08/17/19 Active Insomnia Confirmed 06/17/18 Active Irritable bowel syndrome with diarrhea Confirmed [...] of umbilical hernia (procedure) Completed 1orthopedic surgery Results Laboratory List Name Date Drug Screen Urine (Drug Screen Urine w/ Opiate Conf) 01/16/22 Most recent to oldest [Reference Range]: 1 U Amph Scrn [Negative] Negative (01/16/22 3:54 PM) U Benzodia Scrn [Negative] Negative (01/16/22 3:54 PM) U Cocaine Scrn [Negative] Negative (01/16/22 3:54 PM) U Trina Scrn [Negative] Negative (01/16/22 3:54 PM) U Opiate Scrn [Negative] Negative (01/16/22 3:54 PM) U Oxy Scrn [Negative] Positive *ABN* (01/16/22 3:54 PM) U PCP Scrn [Negative] Negative (01/16/22 3:54 PM) U THC Scr [Negative] Negative (01/16/22 3:54 PM) U PPX Scr [Negative] Negative (01/16/22 3:54 PM) U Methadone Scr [Negative] Negative (01/16/22 3:54 PM) U Buprenorph Scr [Negative] Negative (01/16/22 3:54 PM) U mAMP Scr [Negative] Negative (01/16/22 3:54 PM) U TCA Scr [Negative] Positive *ABN* (01/16/22 3:54 PM) Social History Social History Type Response Tobacco Current everyday tob acco user Tobacco Use:. 1/2 to 1 pack per day per day. 25 year(s). Total pack years: 30. Sex Female Patient Care team information Care Team Personnel Name: Elizabeth Benton PA-C Position: Physician Member Role: Primary Care Physician Address: Address: [facility] [address]
--- OUTSIDE RECORDS SUMMARY | 2022-08-22 00:45 | XMS_ITS | Continuity of Care Document ---
Author Name Unknown Organization [facility] Address [address] [place] [address] Care Team Providers Care Money Laundering Investigator Name Role Phone Elizabeth Benton Primary Care Physician [phone] Encounter [facility] Date(s): 05/19/22 - 05/19/[address] [address] Encounter Diagnosis Gout(Discharge Diagnosis) - 05/19/22 Discharge Disposition: Home or Self Care Attending [...] Spine Cervical w/o Contrast 01/19/22 * US Pelvic Non OB Comp w/ Transvag 10/07/21 Immunizations Given and Recorded Vaccine Date Status Refusal Reason SARS-CoV-2 (COVID-19) mRNA-1273 vaccine 08/05/20 R ecorded SARS-CoV-2 (COVID-19) mRNA-1273 vaccine 07/08/20 R ecorded pneumococcal 23-polyvalent vaccine 03/09/16 Record ed measles/mumps/rubella virus vaccine 03/09/00 Recor ded Medications amitriptyline 25 mg oral tablet 25 mg = 1 tab, Oral, every night at bedtime, TAKE 1 TABLET BY MOUTH EVERY DAY AT BEDTIME, # 90 tab,0 Refill(s), Pharmacy: [facility] #[id number] Start Date: 03/16/22 Status: Ordered chlorthalidone 25 mg oral tablet TAKE 1 TABLET BY MOUTH DAILY Start Date: 10/02/21 Status: Ordered colchicine 0.6 mg oral tablet 0.6 mg = 1 tab, Oral, BID, # 14 tab, 1 Refill(s), Pharmacy: [facility][id number] Start Date: 05/20/22 Stop Date: 06/03/22 Status: Ordered Flovent HFA 44 mcg/inh inhalation [...] bedtime, # 90 tab, 0 Refill(s), Pharmacy: [facility] #[id number] Start Date: 05/19/22 Stop Date: 08/17/22 Status: Ordered LORazepam 0.5 mg oral tablet See Instructions, 1- 2 in AM and then 1-2 one hour prior to MRI., # 4 tab, 0 Refill(s), Pharmacy: [facility] #[id number] Start Date: 05/19/22 Status: Ordered Metoprolol Succinate ER 100 mg oral tablet, extended release TAKE 1 TABLET BY MOUTH DAILY Start Date: 10/02/21 Status: Ordered Narcan 4 mg/0.1 mL nasal spray INSTILL 1 SPRAY NEEDED INTO ONE SIDE OF NOSTRIL Start Date: 10/02/21 Status: Ordered oxyCODONE 10 mg oral tablet 10 mg = 1 tab, Oral, 5 times per day, # 140 tab, 0 Refill(s), Pharmacy: [facility] #[id number] Start Date: 05/19/22 Stop Date: 06/16/22 Status: Ordered oxyCODONE 10 mg oral tablet 10 mg = 1 tab, Oral, 5 times per day, # 140 tab, 0 Refill(s), Pharmacy: [facility][id number] Start Date: 05/19/22 Stop Date: 06/16/22 Status: Ordered oxyCODONE 10 mg oral tablet 10 mg = 1 tab, Oral, 5 times per day, # 140 tab, 0 Refill(s), Pharmacy: [facility] #[id number] Start Date: 05/19/22 Stop Date: 06/16/22 Status: Ordered pantoprazole 40 mg oral delayed release tablet See Instructions, TAKE 1 TABLET BY MOUTH EVERY DAY, # 90 tab, 1 Refill(s), Pharmacy: [facility] #[id number] Start Date: 04/10/22 Status: Ordered verapamil 120 mg/12 hours oral tablet, extended release 180 EA, TAKE 2 TABLETS BY MOUTH DAILY, 0 Refill(s) Start Date: 10/02/21 Status: Ordered zolpidem 12.5 mg oral tablet, extended release 12.5 mg = 1 tab, Oral, every day at bedtime, PRN as needed for insomnia, # 30 tab, 5 Refill(s), Pharmacy: [facility] #[id number] Start Date: 05/19/22 Stop Date: 11/15/22 Status: Ordered Problem List Condition Confirmation Course [...] 1orthopedic surgery Results Laboratory List Name Date Uric Acid 05/19/22 Most recent to oldest [Reference Range]: 1 Uric Acid [2.6-6.0 mg/dL] 10.5 mg/dL *HI* (05/19/22 3:32 PM) Social History Social History Type Response Tobacco Current everyday tob acco user Tobacco Use:. 1/2 to 1 pack per day per day. 25 year(s). Total pack years: 30. Sex Female Patient Care team information Care Team Personnel Name: Elizabeth Benton PA-C Position: Physician Member Role: Primary Care Physician Address: Address: [address] [place] [phone]
--- OUTSIDE RECORDS SUMMARY | 2022-08-22 00:45 | XMS_ITS | Continuity of Care Document ---
Author Name Unknown Organization [facility] Address [address] [place] [address] Care Team Providers Care Marketing Compliance Manager Name Role Phone Elizabeth Benton Primary Care Physician [phone] Encounter [facility] Date(s): 08/11/22 - 08/11/[address] [address] Encounter Diagnosis Rt flank pain(Discharge Diagnosis) - 08/11/22 Right lower quadrant pain(Discharge Diagnosis) - 08/11/22 Left foot pain(Discharge Diagnosis) - 08/11/22 Discharge Disposition: Home or Self Care Attending Physician: Elizabeth Benton PA-C Admitting Physician: Elizabeth Benton PA-C Referring Physician: Elizabeth Benton PA-C Allergies, Adverse Reactions, [...] AT BEDTIME, # 90 tab,0 Refill(s), Pharmacy: [facility] #[id number] Start Date: 06/27/22 Status: Ordered chlorthalidone 25 mg oral tablet TAKE 1 TABLET BY MOUTH DAILY Start Date: 10/02/21 Status: Ordered colchicine 0.6 mg oral capsule 0.6 mg = 1 cap, Oral, BID, # 30 cap, 0 Refill(s), Pharmacy: [facility] #[id number] Start Date: 08/12/22 Stop Date: 08/27/22 Status: Ordered colchicine 0.6 mg oral tablet 0.6 mg = 1 tab, Oral, BID, # 14 tab, 1 Refill(s), Pharmacy: [facility] #[id number] Start Date: 05/20/22 Stop Date: 06/03/22 [...] bedtime, # 90 tab, 0 Refill(s), Pharmacy: [facility] #[id number] Start Date: 05/19/22 Stop Date: 08/17/22 Status: Ordered Metoprolol Succinate ER 100 mg oral tablet, extended release TAKE 1 TABLET BY MOUTH DAILY Start Date: 10/02/21 Status: Ordered Narcan 4 mg/0.1 mL nasal spray INSTILL 1 SPRAY NEEDED INTO ONE SIDE OF NOSTRIL Start Date: 10/02/21 Status: Ordered oxyCODONE 10 mg oral tablet 10 mg = 1 tab, Oral, 5 times per day, # 140 tab, 0 Refill(s), Pharmacy: [facility] #[id number] Start Date: 08/11/22 Stop Date: 09/08/22 Status: Ordered oxyCODONE 10 mg oral tablet 10 mg = 1 tab, Oral, 5 times per day, # 140 tab, 0 Refill(s), Pharmacy: [facility] #[id number] Start Date: 08/11/22 Stop Date: 09/08/22 Status: Ordered oxyCODONE 10 mg oral tablet 10 mg = 1 tab, Oral, 5 times per day, # 140 tab, 0 Refill(s), Pharmacy: [facility] #[id number] Start Date: 05/19/22 Stop Date: 06/16/22 Status: Ordered pantoprazole 40 mg oral delayed release tablet See Instructions, TAKE 1 TABLET BY MOUTH EVERY DAY, # 90 tab, 1 Refill(s), Pharmacy: [facility] #[id number] Start Date: 04/10/22 Status: Ordered verapamil 120 mg/12 hours oral tablet, extended release 180 EA, TAKE 2 TABLETS BY MOUTH DAILY, 0 Refill(s) Start Date: 10/02/21 Status: Ordered zolpidem 12.5 mg oral tablet, extended release 12.5 mg = 1 tab, Oral, every day at bedtime, PRN as needed for insomnia, # 30 tab, 5 Refill(s), Pharmacy: [facility] #[id number] Start Date: 08/11/22 Stop Date: 02/07/23 [...] 1orthopedic surgery Results Laboratory List Name Date Automated Diff 08/11/22 C-Reactive Protein High Sensitivity (CRP High Sensitivity (CV Risk)) 08/11/22 CBC w/ Diff 08/11/22 GGT 08/11/22 Hepatic Function Panel 08/11/22 Lipase Level 08/11/22 Uric Acid 08/11/22 Most recent to oldest [Reference Range]: 1 WBC [5.0-10.0 x10^3/mcL] 10.8 x10^3/mcL *HI* (08/11/22 2:50 PM) RBC [4.1-5.3 x10^6/mcL] 4.8 x10^6/mcL (08/11/22 2:50 PM) Neutro Auto [40.0-75.0 %] 59.4 % (08/11/22 2:50 PM) Lymph Auto [20.0-50.0 %] 30.8 % (08/11/22 2:50 PM) Saunders Auto [2.0-15.0 %] 5.6 % (08/11/22 2:50 PM) Basophil Auto [0.0-1.0 %] 1.0 % (08/11/22 2:50 PM) MCV [80.0-96.0 fL] 93.1 fL (08/11/22 2:50 PM) AST [15-37 unit/L] 34 unit/L (08/11/22 2:50 PM) ALT [14-59 unit/L] 40 unit/L (08/11/22 2:50 PM) MCHC [31.0-35.0 g/dL] 33.0 g/dL (08/11/22 2:50 PM) Hct [37.0-47.0 %] 44.2 % (08/11/22 2:50 PM) Lipase Level [16-77 unit/L] 53 unit/L (08/11/22 2:50 PM) Albumin Level [3.4-5.0 g/dL] 3.5 g/dL (08/11/22 2:50 PM) Protein Total [6.4-8.2 g/dL] 8.0 g/dL (08/11/22 2:50 PM) MCH [26.0-32.0 pg] 30.7 pg (08/11/22 2:50 PM) Neutro Absolute 6.4 x10^3/mcL *NA* (08/11/22 2:50 PM) Bilirubin Total [0.2-1.0 mg/dL] 0.2 mg/d L (08/11/22 2:50 PM) Hgb [12.0-16.0 g/dL] 14.6 g/dL (08/11/22 2:50 PM) Uric Acid [2.6-6.0 mg/dL] 9.3 mg/dL *HI* (08/11/22 2:50 PM) Alk Phos [46-146 unit/L] 121 unit/L (08/11/22 2:50 PM) Bilirubin Direct [0.00-0.20 mg/dL] 0.06 mg/dL (08/11/22 2:50 PM) Platelets [130-450 x10^3/mcL] 397 x10^3/ mcL (08/11/22 2:50 PM) GGT [5-55 unit/L] 125 unit/L *HI* (08/11/22 2:50 PM) RDW-CV [11.5-14.5 %] 12.3 % (08/11/22 2:50 PM) Imm Gran Auto [0.0-0.9 %] 0.4 % (08/11/22 2:50 PM) CRP High Sens [0.00-3.00 mg/L] 23.33 mg/ L *HI* (08/11/22 2:50 PM) Eos, Auto [1.0-6.0 %] 2.8 % (08/11/22 2:50 PM) Orders for Microbiology Reports Name Date Urine Culture 08/11/22 Microbiology Reports TEST:Urine Culture STATUS:Order in Progress BODY SITE: SOURCE:Urine COLLECTED DATE/TIME:08/11/22 1:57 PM PRELIMINARY REPORT <10,000 cfu/ml Gram Positive Cocci Social History Social History Type Response Tobacco Current everyday tob acco user Tobacco Use:. 1/2 to 1 pack per day per day. 25 year(s). Total pack years: 30. Sex Female Patient Care team information Care Team Personnel Name: Elizabeth Benton PA-C Position: Physician Member Role: Primary Care Physician Address: Address: [address] [place] [phone]
== END 2022-08-22 01:03 ==
LOC: DI 00:43
PROVIDERS: PCP Physician Assistant Medical; Visit Provider Physician Assistant Medical
DX: R74.8 Abnormal levels of other serum enzymes (principal); Q44.0 Agenesis, aplasia and hypoplasia of gallbladder; K76.0 Fatty (change of) liver, not elsewhere classified; Q44.6 Cystic disease of liver
CPT/HCPCS: 76705

== ENCOUNTER 2022-09-15 15:27 | Emergency (ER) | payer MEDICAID, SELFPAY ==
[2022-09-15 15:40] VITALS: BP 125/90; PULSE 112; RESP 18; TEMP 37; O2SAT 97
--- NOTE | 2022-09-15 15:45 | DI.CT_ITS ---
Exam(s) CT ABDOMEN PELVIS W EXAM: CT ABDOMEN PELVIS W CLINICAL HISTORY: left mid and lower abdomen pain, back pain. TECHNIQUE: Imaging Protocol: Axial computed tomography images with coronal and sagittal reformatted images were created and reviewed CONTRAST MATERIAL: Intravenous: Omnipaque-350 100cc Oral: None COMPARISON: CT CT ABDOMEN PELVIS W from 11/19/[address] ABDOMEN PELVIS WO from 09/30/2021 FINDINGS: VISUALIZED LUNG BASES: No nodules nor pleural effusions evident. ABDOMEN: There is no ascites. LIVER: Liver size is slightly prominent and is again noted be hypodense implying steatosis. There ar e multiple foci of enhancement within the liver noted which appears slightly different from previous contrast use study November 2020. These may represent hemangiomas or areas of fatty parenchymal spa ring. The largest of these is in the right hepatic lobe and measures 2.5 by 1.6 cm. There are no di lated intrahepatic ducts. GALLBLADDER/BILIARY: Gallbladder is again noted to be surgically absent. CBD is not dilated. PANCREAS: No evidence of pancreatic mass nor dilatation of the pancreatic duct. SPLEEN: Spleen is not enlarged. No obvious intrasplenic lesions. Splenic and portal veins are paten t. ADRENALS: There are no significant adrenal masses. KIDNEYS:No cysts evident. No solid renal masses. No calculi nor hydronephrosis.. ABDOMINAL AORTA: Abdominal aorta is not enlarged. LYMPH NODES:There is no retroperitoneal nor paraaortic adenopathy. ABDOMINAL WALL: No evidence of significant anterior abdominal wall nor inguinal hernia. GI: Fat halo sign evident in the colon which may be variant of normal and exaggerated by lack of oral contrast versus chronic inflammatory bowel disease. PELVIS: GI: Appendix is again noted be surgically absent.No evidence of sigmoid diverticulitis. LYMPH NODES: There is no intrapelvic nor inguinal adenopathy. REPRODUCTIVE: The uterus is now surgically absent. There is now a large mass in the right adnexa, pr obably ovarian and measuring 8.9 by 6.6 cm by 8.7 cm cephalocaudal. The left ovary is also slightly prominent, measuring 4.5 by 2.2 cm and contains cysts. URINARY BLADDER: No calculi nor obvious masses evident OSSEOUS: No fractures and no significant osseous lesions. IMPRESSION: 1. Compared to the prior CT scan of November thousand -one and September 2021 there is again no cl evidence of cholecystectomy and appendectomy and has been interval surgical removal of the uterus . 2. There is now a large complex right adnexal mass measuring approximately 8.9 x 6.6 x 0.7 cm, probab ly ovarian origin. Close follow-up required. Pelvic ultrasound recommended. 3. Enlarged and steatotic liver with areas of focal enhancement noted consistent with either hemangio mas or areas of focal fatty parenchymal sparing. The liver should also be studied at the time of ult rasound. 4. Other findings as above. RADIATION DOSE DELIVERED: 1,149.88mGy.cm Total DLP DATA REPOSITORY: All CT scans at this facility are submitted to the National Radiology Data Registry (NRDR) Dose Index Registry (DIR) with the [employer] (ACR). RADIATION OPTIMIZATION: All CT scans at this facility use at least one of these dose optimization te chniques: automated exposure control; mA and/or kV adjustment per patient size (includes targeted exa ms where dose is matched to clinical indication); or iterative reconstruction.
--- NOTE | 2022-09-15 15:52 | ED.GENADUL_ITS ---
Discharge Plan Disposition Patient Disposition: Home Condition: Stable Discharge Details Clinical Impression: Left lateral abdominal pain, Ovarian mass, right Primary Care Provider: Elizabeth Benton ED Provider: Rufus Sinclair [place] Meds and New Rx's Prescriptions: New ondansetron 4 mg tablet,disintegrating 4 mg PO Q8H PRN (Reason: nausea and vomiting) Qty: 30 0RF Continued amitriptyline 25 mg tablet 25 mg PO HS chlorthalidone 25 mg tablet 25 mg PO DAILY Qty: 90 3RF metoprolol succinate 100 mg tablet extended release 24 hr 100 mg PO DAILY Qty: 90 3RF verapamil 120 mg tablet extended release 240 mg PO DAILY Qty: 180 3RF ibuprofen 600 mg tablet 600 mg PO Q6H PRN (Reason: pain) Qty: 60 1RF naloxone [Narcan] 4 mg/actuation spray,non-aerosol 1 spray LOGAN ONCE PRN fluticasone propionate [Flovent HFA] 44 mcg/actuation HFA aerosol inhaler 2 puff inhalation BID Rx Instructions: administer with spacer oxycodone 5 mg tablet 10 mg PO 5X/DAY Patient Comments: TAKE 2 TABLETS BY MOUTH FIVE TIMES DAILY lamotrigine 150 mg tablet 200 mg PO HS Patient Comments: TAKE 1 TABLET BY MOUTH EVERY DAY AT BEDTIME prednisone 10 mg tablet 10 mg PO DIRECTED Qty: 30 0RF Patient Comments: no longer taking Rx Instructions: 50mg x 2 days 40 mg x 2 days 30mg x 2 days 20mg x 2 days 10mg x 2 days pantoprazole 40 mg tablet,delayed release (DR/EC) 40 mg PO DAILY Patient Comments: TAKE 1 TABLET BY MOUTH ONCE DAILY albuterol sulfate [ProAir HFA] 90 mcg/actuation HFA aerosol inhaler 2 puff INHALATION PRN PRN Patient Comments: INL 2 PFS PO Q 4 H PRN zolpidem 12.5 mg tablet,ext release multiphase 12.5 mg PO HS Patient Comments: TAKE 1 TABLET BY MOUTH EVERY DAY AT BEDTIME prednisone 50 mg tablet 50 mg PO DAILY Qty: 4 0RF Patient Comments: no longer taking omeprazole 40 mg capsule,delayed release(DR/EC) 40 mg PO DAILY Qty: 30 0RF Discharge Instructions Instructions: Hypokalemia (ED), Abdominal Pain (ED), Hypomagnesemia (ED) Additional Instructions: You had no kidney stone or other reasons on your imaging for your pain on the left side. You do have a right ovarian mass which will need further outpatient workup with women's wellness. [facility] their office to arrange a follow up if you feel more ill, have fevers or persistent vomiting return to the emergency department Medical Decision Making 42 yo female who states she has had kidney stones in the past, s/p hysterectomy, chronic neck pain on oxycodone, who comes in with cc of 2 days of left lower and left lower back pain with nausea, no vomiting, no fevers or chills. She states the oxycodone she has prescribed along with ibuprofen haven't helped the pain. She can't think of anything that makes the pain better or worse. She arrives stable, has tenderness in the abdomen in the llq without guarding and also tenderness in the left lower lumbar region, no saddle anesthesia. Suspect diveriticulits vs kidney stone, will proceed with cbc, cmp, lipase, ua, ct abd/pelvis to further evaluate. labs show hypokalemia and hypomag, repletion ordered, ct pending. She initially felt better and now again has pain and is localized to the left oblique, will order for dilaudid CT shows right adnexal mass that has increased in size, enlarged fatty liver. She is stable and has no abdominal tenderness no and has not had any right abdomen or pelvic pain so doubt the mass is the cause for her pain, discussed with her and she feels comfortable with d/c and will f/u with women's wellness. Return precautions given Differential Diagnosis Differential Diagnosis: kidney stone, diverticulitis Medical Records Medical records reviewed: Yes I reviewed the patient's medical records. Imaging Data Radiologic Study: Attestation: I personally reviewed and interpreted this imaging study as follows: Imaging: CT Scan Radiologist's impression: IMPRESSION: 1. Complex right adnexal mass has increased in size since last year's examination. Suggest outpatient pelvic ultrasound. 2. Enlarged and fatty infiltrated liver with areas of focal enhancement consistent with hemangiomata or fatty sparing. Lab Data Lab results reviewed: Yes I reviewed the patient's lab results. HPI General Mode of arrival: ambulatory . Date/Time Provider Initiated Documentation: 09/15/22 15:40 . Limitations to Documentation: no limitations . Information obtained by: patient . History of Present Illness 42 year old F presents to the emergency department with the chief complaint of left abdomen and back pain, described as severe, Quality is described as stabbing, and is localized to the abdomen. Patient reports radiation to back. Patient started experiencing this day(s) (2) and it has been constant. No relieving factors improve symptom(s), No exacerbating factors reported . Patient notes denies chest pain, fever/chills and shortness of breath. Patient did receive the following treatments prior to arrival, NSAID Related Data Home Medications Medication Instructions Recorded Confirmed naloxone 4 mg/actuation nasal 1 spray intranasal ONCE PRN 04/19/18 09/15/22 spray (Narcan) amitriptyline 25 mg tablet 25 mg PO HS 04/18/20 09/15/22 albuterol sulfate 90 mcg/actuation 2 puff inhalation PRN PRN 05/14/20 09/15/22 aerosol inhaler (ProAir HFA) pantoprazole 40 mg tablet,delayed 40 mg PO DAILY 05/14/20 09/15/22 release zolpidem 12.5 mg tablet,extended 12.5 mg PO HS 05/14/20 09/15/22 release,multiphase fluticasone propionate 44 2 puff inhalation BID 06/21/20 09/15/22 mcg/actuation HFA aerosol inhaler (Flovent HFA) oxycodone 5 mg tablet 10 mg PO 5X/DAY 11/19/20 09/15/22 lamotrigine 150 mg tablet 200 mg PO HS 12/07/20 09/15/22 ibuprofen 600 mg tablet 600 mg PO Q6H PRN pain #60 tabs 11/22/21 09/15/22 chlorthalidone 25 mg tablet 25 mg PO DAILY #90 tabs 12/31/21 09/15/22 metoprolol succinate 100 mg 100 mg PO DAILY #90 tabs 12/31/21 09/15/22 tablet,extended release 24 hr verapamil 120 mg tablet,extended 240 mg PO DAILY #180 tabs 12/31/21 09/15/22 release omeprazole 40 mg capsule,delayed 40 mg PO DAILY #30 caps 03/16/22 09/15/22 release prednisone 50 mg tablet 50 mg PO DAILY #4 tabs 03/16/22 09/15/22 prednisone 10 mg tablet 10 mg PO DIRECTED #30 tabs 03/31/22 09/15/22 ondansetron 4 mg disintegrating 4 mg PO Q8H PRN nausea and 09/15/22 tablet vomiting #30 tabs Previous Rx's Medication Instructions Recorded ibuprofen 600 mg tablet 600 mg PO Q6H PRN pain #60 tabs 11/22/21 chlorthalidone 25 mg tablet 25 mg PO DAILY #90 tabs 12/31/21 metoprolol succinate 100 mg 100 mg PO DAILY #90 tabs 12/31/21 tablet,extended release 24 hr verapamil 120 mg tablet,extended 240 mg PO DAILY #180 tabs 12/31/21 release omeprazole 40 mg capsule,delayed 40 mg PO DAILY #30 caps 03/16/22 release prednisone 50 mg tablet 50 mg PO DAILY #4 tabs 03/16/22 prednisone 10 mg tablet 10 mg PO DIRECTED #30 tabs 03/31/22 ondansetron 4 mg disintegrating 4 mg PO Q8H PRN nausea and 09/15/22 tablet vomiting #30 tabs Allergies Allergy/AdvReac Type Severity Reaction Status Date / Time labetalol AdvReac Intermediate nausea and Verified 09/15/22 15:43 vomiting lisdexamfetamine AdvReac Intermediate hypertensio Verified 09/15/22 15:43 [From Vyvanse] n prednisone AdvReac Intermediate It makes Verified 09/15/22 15:43 me feel weird codeine AdvReac Mild Nausea Verified 09/15/22 15:43 morphine AdvReac Mild Nausea Verified 09/15/22 15:43 tramadol HCl [From Ultram] AdvReac Mild Nausea Verified 09/15/22 15:43 cariprazine [From Vraylar] AdvReac Unknown vomiting Verified 09/15/22 15:43 tamsulosin [From Flomax] AdvReac light Verified 09/15/22 15:43 headed/dizzy tegaderm tape AdvReac Intermediate ariza my Uncoded 09/15/22 15:43 skin General Stated Complaint: FlankPain JOEL: 3 Review of Systems All systems reviewed & are unremarkable except as noted in HPI and below Constitutional Constitutional: Denies chills, Denies fever(s) and Denies weakness Cardiovascular Cardiovascular: Denies chest pain and Denies dyspnea Respiratory Respiratory: Denies cough and Denies dyspnea Gastrointestinal Gastrointestinal: Denies vomiting Genitourinary Genitourinary: Denies dysuria Integumentary/Breasts Skin/Breast: Denies rash Neurologic Neurologic: Denies weakness PFSH All Active Problems (Updated 09/15/22 @ 18:35 by Rufus Sinclair MD) Left lateral abdominal pain (Acute) Ovarian mass, right (Acute) Postoperative pain (Acute) S/P laparoscopic assisted vaginal hysterectomy (LAVH) (Acute) Bilateral kidney stones (Acute) 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 L>R side. Normal CT & u/s of abdomen and pelvis. 05/01/21. Rx Cipro and Flagyl times 2W Constipation (Acute) Bipolar 1 disorder (Chronic) Borderline personality disorder (Acute) ANN (obstructive sleep apnea) (Chronic) Chronic GERD (Chronic) Acute diarrhea (Acute) Colitis (Acute) DVT prophylaxis (Acute) Medical History Abdominal pain Active asthma ADD (attention deficit disorder) Adnexal mass Amenorrhea Amnesia Pt. states when she gets too stressed out she blacks out, Last one was months ago' ASCUS with positive high risk HPV 09/2020. Will f/u at [facility] for colposcopy after issue with RLQ pain is addressed. ASCUS with positive high risk HPV 09/2020. Patient needs colposcopy Asthma Atypical squamous cells of undetermined significance with positive high risk human papillomavirus Calculus of kidney and ureter Carpal tunnel syndrome Causalgia of left upper extremity Cervical disc disease Cervical disc disorder with radiculopathy Chest pain at rest pt. denies this Chronic wrist pain Cold sore Conversion disorder tremor, stutter, weakness CVA tenderness Dizziness Elevated fasting blood sugar Essential tremor Gastritis GERD (gastroesophageal reflux disease) History of urinary stone Carcamo sign present Human papilloma virus (HPV) DNA test positive Hydronephrosis IBS (irritable bowel syndrome) Insomnia Irritable bowel syndrome with diarrhea Kidney stones Knee pain Left-sided thoracic back pain Median nerve compression in left forearm Medication management Medication monitoring encounter Memory loss Migraines Neuralgia Nicotine dependence Numbness and tingling Pain in pelvis Post-cholecystectomy syndrome post casey diarrhea Preop examination Psychophysiologic disorder PTSD (post-traumatic stress disorder) Rectal bleeding Right arm weakness Right ureteral stone Seizure (~04/14/18) Pt. stated she had one one time 5 years ago, and has never had once since Seizure disorder Snoring Spasm of back muscles Upper respiratory infection pt. denies this Ureteral calculi Surgical History Carpal tunnel syndrome, left s/p left ECTR DOS: 01/23/20 H/O left knee surgery H/O ovarian cystectomy 10/18/2020. Laparoscopic right ovarian cystectomy for persistent 4 cm right ovarian cyst. History of carpal tunnel surgery of left wrist History of colonoscopy (~07/09/20) Repair of umbilical hernia S/P appendectomy S/P cholecystectomy S/P knee surgery Family History Father Cerebral aneurysm Social History Smoking/Tobacco Use Status: Current every day Tobacco Type: cigarettes Smoking packs per day: 0.5 Smoking cigarettes per day: 10.0 Years smoked: 30 Smoking pack-years: 15.00 Smoking risk assessment performed?: Yes Alcohol Intake: never Drug use: Never Substance use type: does not use Household members: significant other and other Details: BF-Tanner. S-Chance. Moved to [place] 2mo ago to be w/ GF. Number of Children: 1 current occupation: Unemployed secondary to disability Current gender identity: female Do you feel safe at home: Yes Do you feel safe in your relationship?: Yes Female Reproductive History Menstrual Duration of menses: 3-5 days (Average flow minimal dysmenorrhea) control method: none Exam Const General: no acute distress Orientation: alert [facility] Head: normal to inspection Ears: external ears normal General nose exam: external nose normal Mouth: moist mucous membranes Eyes General: appearance normal, both eyes and all related structures Neck Neck: normal visual inspection Resp Effort & Inspection: normal respiratory effort and able to speak in complete sentences Cardio Rate: regular rate GI Palpation: soft and tender Back/Spine/Pelvis Back: no CVA tenderness Skin General skin exam: no rashes or lesions noted Neuro General: patient alert and patient oriented x3 Extrem General: normal to inspection Psych Mental Status: mental status grossly normal Course Vital Signs Vital signs: Vital Signs Pulse 112 H 09/15/22 15:40 Respiratory Rate 18 09/15/22 15:40 Blood Pressure 125/90 09/15/22 15:40 Pulse Oximetry 97 09/15/22 15:40 Pulse 112 H 09/15/22 15:40 Respiratory Rate 18 09/15/22 15:40 Respiratory Effort Normal 09/15/22 15:42 Blood Pressure 125/90 09/15/22 15:40 Blood Pressure Position Sitting 09/15/22 15:40 Pulse Oximetry 97 09/15/22 15:40 Oxygen Delivery Method Room Air 09/15/22 15:40 Oxygen Flow Rate 0 09/15/22 15:40 Pain Level 8 09/15/22 15:49
[2022-09-15] MEDS: Ondansetron 4 MG/2 ML VIAL IVP (16:03)
[2022-09-15] MEDS: HYDROmorphone 2 MG/ML SYR IVP ×2 (16:03→18:16)
[2022-09-15] MEDS: Ketorolac 15 MG/ML VIAL IVP (16:04)
[2022-09-15] MEDS: Normal Saline 1,000 ML 1000 ML IV (16:04)
[2022-09-15 16:19] LABS: Abs Immature Grans 0.07 10^3/uL (0.0-0.06); Absolute Basophil Count 0.07 10^3/uL (0.0-0.2); Absolute Eosinophil Count 0.31 10^3/uL (0.0-0.7); Absolute Lymphocyte Count 3.48 10^3/uL (1.2-3.4); Basophils % 0.5; Eosinophils % 2.3; HCT 44.1 % (36.0-46.0); HGB 14.8 g/dL (11.2-15.7); Immature Grans % 0.5; MCH 30.6 pg (27.0-33.0); MCHC 33.6 % (32.0-36.0); MCV 91 fL (80-95); MPV 9.8 fL (8.0-11.0); Monocytes % 6.7; Platelet Count 349 10^3/uL (130-400); RBC 4.83 10^6/uL (3.93-5.22); RDW 12.5 % (11.7-14.6); RDW-SD 41.3 fL; WBC 13.37 10^3/uL (4.4-10.8)
[2022-09-15 16:20] LABS: Absolute Neutrophil Count 8.56 10^3/uL (1.2-6.7)
[2022-09-15 16:20] LABS: Bilirubin Small (Negative); Blood Negative (Negative); Clarity Sl Cloudy (Clear); Glucose 100 mg/dL (Negative); Ketones Trace mg/dL (Negative); Leukocyte Esterase Negative (Negative); Nitrite Negative (Negative); Urobilinogen 0.2 mg/dL (Up to 0.2)
[2022-09-15 16:30] LABS: Bacteria Rare HPF (Negative); C & S Indicated? No; Casts Negative LPF (Negative); Crystals Negative HPF (Negative); Epithelial Cells Moderate HPF (Negative); Mucus Negative (Negative); RBC Negative HPF (0-2); WBC 0-2 HPF (0-5)
[2022-09-15 16:33] LABS: ALT 48 U/L (14-59); AST 50 U/L (15-37); Albumin 3.8 g/dL (3.4-5.0); Alkaline Phosphatase 132 U/L (46-116); BUN 19 mg/dL (7-18); Bilirubin, Total 0.4 mg/dL (0.2-1.0); CREATININE 1.5 mg/dL (0.55-1.02); Calcium 9.4 mg/dL (8.5-10.1); Chloride 93 mmol/L (98-107); Glucose 229 mg/dL (74-106); Lipase 47 U/L (16-77); Magnesium 1.7 mg/dL (1.8-2.4); Sodium 135 mmol/L (136-145); Total Protein 8.2 g/dL (6.4-8.2)
[2022-09-15] MEDS: Normal Saline - Diluent 50 ML VIAL IJ (16:45)
[2022-09-15] MEDS: Omnipaque 350 MG/ML 100 ML BTL IJ (16:45)
[2022-09-15] MEDS: POTASSIUM CHLORIDE 20 MEQ/100 ML BAG 50 MEQ IVPB (17:09)
[2022-09-15] MEDS: MAGNESIUM SULFATE 1 GM/100 ML BAG IVPB (17:12)
--- NOTE | 2022-09-15 17:22 | DI.VRAD_ITS ---
PROCEDURE INFORMATION: Exam: CT Abdomen And Pelvis With Contrast Exam date and time: 09/15/2022 4:54 PM Age: 42 years old Clinical indication: Abdominal pain; Localized; Patient HX: Left, mid and lower abdomen pain, back pain TECHNIQUE: Imaging protocol: Computed tomography of the abdomen and pelvis with contrast. COMPARISON: CT ABDOMEN PELVIS WO 09/30/2021 11:50 AM FINDINGS: Liver: The liver is enlarged and of decreased attenuation consistent with diffuse fatty infiltration. In the inferior portion of segment VIII is an ovoid area measuring 2.6 cm in length and 1.7 cm in diameter. In the superior portion of this segment is a 0.7 cm lesion is similar enhancement characteristics. Final lesion is in segment IV measuring 1.3 cm in diameter. These may be areas of focal fatty sparing or hemangiomata. Gallbladder and bile ducts: There has been a cholecystectomy. There is no common bile duct dilation. Pancreas: Normal. No ductal dilation. Spleen: Splenules are present. The spleen itself appears unremarkable. Adrenal glands: The adrenal glands are normal. Kidneys and ureters: Normal. No hydronephrosis. Stomach and bowel: Unremarkable. No obstruction. No mucosal thickening. Appendix: There has been an appendectomy. Intraperitoneal space: Unremarkable. No free air. No significant fluid collection. Vasculature: Unremarkable. No abdominal aortic aneurysm. Lymph nodes: Unremarkable. No enlarged lymph nodes. Urinary bladder: Unremarkable as visualized. Reproductive: There has been a hysterectomy. Complex right adnexal mass measuring 8.4 cm cc, 6.2 cm T and 8.2 cm AP. This has increased in size since the prior examination when it measured 4.3 x 3.2 x 3.4 cm respectively. The left adnexa is unremarkable. Bones/joints: Unremarkable. No acute fracture. Soft tissues: Unremarkable. IMPRESSION: 1. Complex right adnexal mass has increased in size since last year's examination. Suggest outpatient pelvic ultrasound. 2. Enlarged and fatty infiltrated liver with areas of focal enhancement consistent with hemangiomata or fatty sparing. Dictated and Authenticated by: Zachary Jeronimo MD. Ordering:EBENEZER Hooper MD
--- NOTE | 2022-09-15 18:07 | NUR.NOTE ---
Nursing Note:Referral faxed to [facility] for right ovarian mass, within 1 week.
== END 2022-09-15 19:16 | disposition home or self-care (01) ==
PROVIDERS: Emergency Provider Emergency Medicine; PCP Physician Assistant Medical
DX: R11.0 Nausea (principal); R10.30 Lower abdominal pain, unspecified; N83.8 Other noninflammatory disorders of ovary, fallopian tube and broad ligament; K76.0 Fatty (change of) liver, not elsewhere classified; Z87.442 Personal history of urinary calculi; F17.210 Nicotine dependence, cigarettes, uncomplicated
CPT/HCPCS: 36415; 80053; 83690; 96365; 96375; 96376; 99285; 74177; 81003; 81015; 83735; 85025; 99284; J1170; J1885; J2405; J3475; J3480; J3490

== ENCOUNTER 2022-09-22 14:21 | Outpatient (CLI) | payer MEDICAID, SELFPAY ==
[2022-09-23 10:05] LABS: CEA 2.3 ng/mL (See Note)
[2022-09-23 14:46] LABS: CA 125 76 U/mL (<30)
[2022-09-24 13:13] LABS: CA 19-9 54 U/mL (<35)
== END 2022-09-22 14:22 | disposition home or self-care (01) ==
LOC: LBO 14:22
PROVIDERS: PCP Physician Assistant Medical; Visit Provider Obstetrics & Gynecology
DX: N83.8 Other noninflammatory disorders of ovary, fallopian tube and broad ligament (principal)
CPT/HCPCS: 36415; 86304; 82378; 86301

== ENCOUNTER 2022-11-21 01:11 | Emergency (ER) | payer MEDICAID, SELFPAY ==
[2022-11-21 01:16] VITALS: BP 167/114; PULSE 112; RESP 16; TEMP 36.7; O2SAT 98
--- NOTE | 2022-11-21 01:19 | ED.GENADUL_ITS ---
Discharge Plan Disposition Patient Disposition: Home Condition: Stable Discharge Details Chief Complaint: Orthopedic Clinical Impression: Elbow pain Primary Care Provider: Elizabeth Benton ED Provider: Nicholas Vásquez Home Meds and New Rx's Prescriptions: No Action amitriptyline 25 mg tablet 25 mg PO HS chlorthalidone 25 mg tablet 25 mg PO DAILY Qty: 90 3RF Hold Instructions: Changed by Provider ibuprofen 600 mg tablet 600 mg PO Q6H PRN (Reason: pain) Qty: 60 1RF naloxone [Narcan] 4 mg/actuation spray,non-aerosol 1 spray LOGAN ONCE PRN fluticasone propionate [Flovent HFA] 44 mcg/actuation HFA aerosol inhaler 2 puff inhalation BID Rx Instructions: administer with spacer oxycodone 5 mg tablet 10 mg PO 5X/DAY Patient Comments: TAKE 2 TABLETS BY MOUTH FIVE TIMES DAILY lamotrigine 150 mg tablet 200 mg PO HS Patient Comments: TAKE 1 TABLET BY MOUTH EVERY DAY AT BEDTIME pantoprazole 40 mg tablet,delayed release (DR/EC) 40 mg PO DAILY Patient Comments: TAKE 1 TABLET BY MOUTH ONCE DAILY albuterol sulfate [ProAir HFA] 90 mcg/actuation HFA aerosol inhaler 2 puff INHALATION PRN PRN Patient Comments: INL 2 PFS PO Q 4 H PRN zolpidem 12.5 mg tablet,ext release multiphase 12.5 mg PO HS Patient Comments: TAKE 1 TABLET BY MOUTH EVERY DAY AT BEDTIME ondansetron 4 mg tablet,disintegrating 4 mg PO Q8H PRN (Reason: nausea and vomiting) Qty: 30 0RF estradiol 1 mg tablet 1 mg PO DAILY Patient Comments: TAKE 1 TABLET BY MOUTH DAILY Discharge Instructions Instructions: Elbow Bursitis (ED), Arthralgia (ED) Medical Decision Making 42-year-old female presents with atraumatic right elbow pain over the last couple of weeks. History of gout. Afebrile nontoxic. Discomfort to palpation over olecranon without fluctuance induration or purulence no skin breakdown, no evidence of trauma, no deformity, range of motion both flexion and extension active and passive intact, warm well perfused extremity sensate. Consider osteoarthritis versus early bursitis versus gout versus Lyme arthritis versus contusion versus tendinitis low suspicion for septic joint given history and physical. Will obtain screening x-ray, will provide anti-inflammatory in the form of dexamethasone, pain control with acetaminophen. X-ray unremarkable. Resting comfortably no acute distress. Home care instructions and return precautions given HPI General Date/Time Provider Initiated Documentation: 11/21/22 01:14 . HPI Narrative: 42-year-old female presents with several days of right elbow discomfort. Denies fevers chills nausea vomiting or other systemic signs of illness. No known trauma. Patient does have history of gout. Related Data Home Medications Medication Instructions Recorded Confirmed naloxone 4 mg/actuation nasal 1 spray intranasal ONCE PRN 04/19/18 11/21/22 spray (Narcan) amitriptyline 25 mg tablet 25 mg PO HS 04/18/20 11/21/22 albuterol sulfate 90 mcg/actuation 2 puff inhalation PRN PRN 05/14/20 11/21/22 aerosol inhaler (ProAir HFA) pantoprazole 40 mg tablet,delayed 40 mg PO DAILY 05/14/20 11/21/22 release zolpidem 12.5 mg tablet,extended 12.5 mg PO HS 05/14/20 11/21/22 release,multiphase fluticasone propionate 44 2 puff inhalation BID 06/21/20 11/21/22 mcg/actuation HFA aerosol inhaler (Flovent HFA) oxycodone 5 mg tablet 10 mg PO 5X/DAY 11/19/20 11/21/22 lamotrigine 150 mg tablet 200 mg PO HS 12/07/20 11/21/22 ibuprofen 600 mg tablet 600 mg PO Q6H PRN pain #60 tabs 11/22/21 11/21/22 chlorthalidone 25 mg tablet 25 mg PO DAILY #90 tabs 12/31/21 11/21/22 ondansetron 4 mg disintegrating 4 mg PO Q8H PRN nausea and 09/15/22 11/21/22 tablet vomiting #30 tabs estradiol 1 mg tablet 1 mg PO DAILY 11/21/22 11/21/22 Previous Rx's Medication Instructions Recorded ibuprofen 600 mg tablet 600 mg PO Q6H PRN pain #60 tabs 11/22/21 chlorthalidone 25 mg tablet 25 mg PO DAILY #90 tabs 12/31/21 ondansetron 4 mg disintegrating 4 mg PO Q8H PRN nausea and 09/15/22 tablet vomiting #30 tabs Allergies Allergy/AdvReac Type Severity Reaction Status Date / Time labetalol AdvReac Intermediate nausea and Verified 11/21/22 01:19 vomiting lisdexamfetamine AdvReac Intermediate hypertensio Verified 11/21/22 01:19 [From Vyvanse] n prednisone AdvReac Intermediate It makes Verified 11/21/22 01:19 me feel weird codeine AdvReac Mild Nausea Verified 11/21/22 01:19 morphine AdvReac Mild Nausea Verified 11/21/22 01:19 tramadol HCl [From Ultram] AdvReac Mild Nausea Verified 11/21/22 01:19 cariprazine [From Vraylar] AdvReac Unknown vomiting Verified 11/21/22 01:19 tamsulosin [From Flomax] AdvReac light Verified 11/21/22 01:19 headed/dizzy tegaderm tape AdvReac Intermediate ariza my Uncoded 11/21/22 01:19 skin General Stated Complaint: Orthopedic JOEL: 4 Review of Systems Narrative: Review of Systems Constitutional: negative Eyes: negative ENT: negative Cardiovascular: negative Respiratory: negative Gastrointestinal: negative : negative Musculoskeletal: Elbow pain Skin: negative Neurologic: negative Psych: negative PFSH All Active Problems (Updated 11/21/22 @ 03:07 by Nicholas Vásquez MD) Elbow pain (Acute) Postoperative pain (Acute) S/P laparoscopic assisted vaginal hysterectomy (LAVH) (Acute) Bilateral kidney stones (Acute) 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 L>R side. Normal CT & u/s of abdomen and pelvis. 05/01/21. Rx Cipro and Flagyl times 2W Constipation (Acute) Bipolar 1 disorder (Chronic) Borderline personality disorder (Acute) ANN (obstructive sleep apnea) (Chronic) Chronic GERD (Chronic) Acute diarrhea (Acute) Colitis (Acute) DVT prophylaxis (Acute) Medical History Abdominal pain Active asthma ADD (attention deficit disorder) Adnexal mass Amenorrhea Amnesia Pt. states when she gets too stressed out she blacks out, Last one was months ago' ASCUS with positive high risk HPV 09/2020. Will f/u at [facility] for colposcopy after issue with RLQ pain is addressed. ASCUS with positive high risk HPV 09/2020. Patient needs colposcopy Asthma Atypical squamous cells of undetermined significance with positive high risk human papillomavirus Calculus of kidney and ureter Carpal tunnel syndrome Causalgia of left upper extremity Cervical disc disease Cervical disc disorder with radiculopathy Chest pain at rest pt. denies this Chronic wrist pain Cold sore Conversion disorder tremor, stutter, weakness CVA tenderness Dizziness Elevated fasting blood sugar Essential tremor Gastritis GERD (gastroesophageal reflux disease) History of urinary stone Carcamo sign present Human papilloma virus (HPV) DNA test positive Hydronephrosis IBS (irritable bowel syndrome) Insomnia Irritable bowel syndrome with diarrhea Kidney stones Knee pain Left-sided thoracic back pain Median nerve compression in left forearm Medication management Medication monitoring encounter Memory loss Migraines Neuralgia Nicotine dependence Numbness and tingling Pain in pelvis Post-cholecystectomy syndrome post casey diarrhea Preop examination Psychophysiologic disorder PTSD (post-traumatic stress disorder) Rectal bleeding Right arm weakness Right ureteral stone Seizure (~04/14/18) Pt. stated she had one one time 5 years ago, and has never had once since Seizure disorder Snoring Spasm of back muscles Upper respiratory infection pt. denies this Ureteral calculi Surgical History Carpal tunnel syndrome, left s/p left ECTR DOS: 01/23/20 H/O left knee surgery H/O ovarian cystectomy 10/18/2020. Laparoscopic right ovarian cystectomy for persistent 4 cm right ovarian cyst. History of carpal tunnel surgery of left wrist History of colonoscopy (~07/09/20) Repair of umbilical hernia S/P appendectomy S/P cholecystectomy S/P knee surgery Family History Father Cerebral aneurysm Social History Smoking/Tobacco Use Status: Current every day Tobacco Type: cigarettes Smoking packs per day: 0.5 Smoking cigarettes per day: 10.0 Years smoked: 30 Smoking pack-years: 15.00 Smoking risk assessment performed?: Yes Alcohol Intake: never Drug use: Never Substance use type: does not use Household members: significant other and other Details: BF-Tanner. S-Chance. Moved to [place] 2mo ago to be w/ GF. Number of Children: 1 current occupation: Unemployed secondary to disability Current gender identity: female Do you feel safe at home: Yes Do you feel safe in your relationship?: Yes Female Reproductive History Menstrual Duration of menses: 3-5 days (Average flow minimal dysmenorrhea) control method: none Exam Narrative Exam Narrative: Physical Examination General: alert, awake, cooperative, resting comfortably, no acute distress HEENT: normocephalic, atraumatic Skin: no lesions, rashes or trauma appreciated Neuro: AAOx3, normal speech, moving all extremities Extremities: Discomfort over right olecranon, no fluctuance induration or purulence noted, no evidence of skin breakdown or trauma, no deformity, patient able to flex and extend elbow; soft compartments warm well perfused extremity Course Vital Signs Vital signs: Vital Signs Temperature 36.7 C 11/21/22 01:16 Pulse 112 H 11/21/22 01:16 Respiratory Rate 16 11/21/22 01:16 Blood Pressure 167/114 H 11/21/22 01:16 Pulse Oximetry 98 11/21/22 01:16 Temperature 36.7 C 11/21/22 01:16 Temperature Source Oral 11/21/22 01:16 Pulse 112 H 11/21/22 01:16 Respiratory Rate 16 11/21/22 01:16 Respiratory Effort Normal 11/21/22 01:16 Blood Pressure 167/114 H 11/21/22 01:16 Blood Pressure Position Sitting 11/21/22 01:16 Pulse Oximetry 98 11/21/22 01:16 Oxygen Delivery Method Room Air 11/21/22 01:16 Oxygen Flow Rate 0 11/21/22 01:16 Pain Level 9 11/21/22 01:16
[2022-11-21] MEDS: Dexamethasone 10 MG/ML VIAL PO (01:37)
[2022-11-21] MEDS: Acetaminophen 325 MG TAB 650 MG PO (01:37)
--- NOTE | 2022-11-21 02:02 | DI.RAD_ITS ---
Exam(s) XR ELBOW RT COMPLETE EXAM: XR ELBOW RT COMPLETE CLINICAL HISTORY: elbow pain. TECHNIQUE: 2D digital imaging was performed. Three views. COMPARISON: MR MR UPPER JOINT LT WO from 09/12/2019 FINDINGS: BONES: No acute fracture is present. No bony destructive lesion is seen. JOINTS: The elbow is normally aligned. No joint effusion is seen. SOFT TISSUE: Normal. IMPRESSION: Unremarkable radiographs of the right elbow. DATA REPOSITORY: RADIATION DOSE DELIVERED:
--- NOTE | 2022-11-21 03:00 | DI.VRAD_ITS ---
PROCEDURE INFORMATION: Exam: XR Right Elbow Exam date and time: 11/21/2022 1:52 AM Age: 42 years old Clinical indication: Elbow; Right; Patient HX: No known trauma. Pain 2 weeks TECHNIQUE: Imaging protocol: Radiologic exam of the right elbow. Views: 3 or more views. COMPARISON: CR XR SHOULDER RT COMPLETE 2+V 01/12/2019 10:16 AM FINDINGS: Normal alignment. No acute fracture or dislocation. No definite joint effusion. IMPRESSION: No acute findings. Dictated and Authenticated by: Nilo Verde MD. Ordering:LEO Peterson MD
[2022-11-24 10:36] LABS: Lyme Ab w Rflx to Lyme Confirm Negative (Negative)
[2022-11-24 22:16] LABS: Anaplasma phagocytophilum Negative (Negative); B. miyamotoi PCR Negative (Negative); Babesia divergens/MO-1 Negative (Negative); Babesia duncani Negative (Negative); Babesia microti Negative (Negative); Ehrlichia chaffeensis Negative (Negative); Ehrlichia ewingii/canis Negative (Negative); Ehrlichia muris eauclairensis Negative (Negative)
== END 2022-11-21 03:13 | disposition home or self-care (01) ==
PROVIDERS: Emergency Provider Emergency Medicine; PCP Physician Assistant Medical
DX: M25.521 Pain in right elbow (principal)
CPT/HCPCS: 87798; 99283; 73080; 86618; J1100

== ENCOUNTER 2023-03-16 02:08 | Emergency (ER) | payer MEDICAID, SELFPAY ==
[2023-03-16] VITALS (33 sets, daily range): BP systolic 140–195; BP diastolic 94–147; PULSE 93–115; RESP 15–26; TEMP 36.7; O2SAT 95–100
--- NOTE | 2023-03-16 02:00 | RT.EKG_ITS ---
APPROVED REPORT Exam: Resting ECG Reason for Exam: chest pain Patient Location: E HR:106 bpm ECG Measurements Heart Rate [address] 213 P 28 QRSd 77 QRS 22 QT 330 T 2 QTc 438 Conclusion Sinus tachycardia...rate> [address] interval...CT >205, V-rate 91-120 Nonspecific T abnormalities, lateral leads...T <-0.10mV, I aVL V5 V6 No ST segment or T wave abnormalities to suggest occluisve MD
--- NOTE | 2023-03-16 02:30 | DI.RAD_ITS ---
Exam(s) XR CHEST 2V PA LATERAL EXAM: XR CHEST 2V PA LATERAL CLINICAL HISTORY: chest pain TECHNIQUE: 2D digital imaging was performed of the chest. Two images were obtained. PA and lateral views were obtained. COMPARISON: CR,XR XR PORTABLE CHEST AP from 09/16/2019 FINDINGS: MEDIASTINUM: Normal. HEART: Normal. PULMONARY VASCULATURE: Normal. LUNGS: Clear. PLEURAL SPACE: No pleural effusion or pneumothorax. BONE:Within normal limits for the patient's age. OTHER FINDINGS:Normal. IMPRESSION: No acute pulmonary findings. DATA REPOSITORY: RADIATION DOSE DELIVERED:
[2023-03-16] MEDS: ACETAMINOPHEN 1,000 MG/100 ML BTL 400 MG IVPB (02:48)
[2023-03-16] MEDS: Cyclobenzaprine 10 MG TAB PO (02:48)
[2023-03-16 02:55] LABS: Abs Immature Grans 0.02 10^3/uL (0.0-0.06); Absolute Basophil Count 0.07 10^3/uL (0.0-0.2); Absolute Lymphocyte Count 3.14 10^3/uL (1.2-3.4); Absolute Monocyte Count 0.58 10^3/uL (0.1-0.8); Basophils % 0.7; Eosinophils % 4.1; HCT 41.8 % (36.0-46.0); HGB 13.8 g/dL (11.2-15.7); Immature Grans % 0.2; Lymphocytes % 32.3; MCH 30.1 pg (27.0-33.0); MCV 91 fL (80-95); MPV 10.3 fL (8.0-11.0); Neutrophils % 56.7; Platelet Count 307 10^3/uL (130-400); RBC 4.58 10^6/uL (3.93-5.22); RDW 13.2 % (11.7-14.6); RDW-SD 43.9 fL; WBC 9.71 10^3/uL (4.4-10.8)
--- NOTE | 2023-03-16 02:55 | W.ED.GENAD ---
HPI General Stated Complaint: Chest Pain Mode of arrival: ambulatory. JOEL: 3 Date/Time Provider Initiated Documentation: 03/16/23 02:22. Limitations to Documentation: no limitations. Information obtained by: patient. HPI Narrative: 43yo F with hx GERD, asthma, post-cholecystectomy syndrome, IBS, cervical disc disease, PTSD, HTN, presenting for left sided chest and shoulder pain since 8pm. Symptoms started at rest. Does not recall any provoking factor. Pain is moderate to severe and worse with left arm movement. No other alleviating or aggravating factors. No shortness of breath, lightheadedness, numbness, or weakness. No LE edema, WASSERMAN, or orthopnea. She is otherwise in her usual state of health with no fevers, chills, rash, nausea, vomiting, abdominal pain, dysuria, hematuria, or other concerns. Related Data Home Medications Medication Instructions Recorded Confirmed naloxone 4 mg/actuation nasal 1 spray intranasal ONCE PRN 04/19/18 03/16/23 spray (Narcan) amitriptyline 25 mg tablet 25 mg PO HS 04/18/20 03/16/23 albuterol sulfate 90 mcg/actuation 2 puff inhalation PRN PRN 05/14/20 03/16/23 aerosol inhaler (ProAir HFA) pantoprazole 40 mg tablet,delayed 40 mg PO DAILY 05/14/20 03/16/23 release zolpidem 12.5 mg tablet,extended 12.5 mg PO HS 05/14/20 03/16/23 release,multiphase fluticasone propionate 44 2 puff inhalation BID 06/21/20 03/16/23 mcg/actuation HFA aerosol inhaler (Flovent HFA) oxycodone 5 mg tablet 5 mg PO 5X/DAY 11/19/20 03/16/23 lamotrigine 150 mg tablet 200 mg PO HS 12/07/20 03/16/23 chlorthalidone 25 mg tablet 25 mg PO DAILY #90 tabs 12/31/21 03/16/23 ondansetron 4 mg disintegrating 4 mg PO Q8H PRN nausea and 09/15/22 03/16/23 tablet vomiting #30 tabs estradiol 1 mg tablet 1 mg PO DAILY 11/21/22 03/16/23 potassium 20 mg chewable tablet 200 mg PO DAILY 03/16/23 03/16/23 Previous Rx's Medication Instructions Recorded chlorthalidone 25 mg tablet 25 mg PO DAILY #90 tabs 12/31/21 ondansetron 4 mg disintegrating 4 mg PO Q8H PRN nausea and 09/15/22 tablet vomiting #30 tabs Allergies Allergy/AdvReac Type Severity Reaction Status Date / Time labetalol AdvReac Intermediate nausea and Verified 03/16/23 02:23 vomiting lisdexamfetamine AdvReac Intermediate hypertensio Verified 03/16/23 02:23 [From Vyvanse] n prednisone AdvReac Intermediate It makes Verified 03/16/23 02:23 me feel weird codeine AdvReac Mild Nausea Verified 03/16/23 02:23 morphine AdvReac Mild Nausea Verified 03/16/23 02:23 tramadol HCl [From Ultram] AdvReac Mild Nausea Verified 03/16/23 02:23 cariprazine [From Vraylar] AdvReac Unknown vomiting Verified 03/16/23 02:23 tamsulosin [From Flomax] AdvReac light Verified 03/16/23 02:23 headed/dizzy tegaderm tape AdvReac Intermediate ariza my Uncoded 03/16/23 02:23 skin Review of Systems Narrative: see HPI PFSH All Active Problems (Updated 03/16/23 @ 05:02 by Radha Griffin MD) Chest pain (Acute) Postoperative pain (Acute) S/P laparoscopic assisted vaginal hysterectomy (LAVH) (Acute) Bilateral kidney stones (Acute) 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 L>R side. Normal CT & u/s of abdomen and pelvis. 05/01/21. Rx Cipro and Flagyl times 2W Constipation (Acute) Bipolar 1 disorder (Chronic) Borderline personality disorder (Acute) ANN (obstructive sleep apnea) (Chronic) Chronic GERD (Chronic) Acute diarrhea (Acute) Colitis (Acute) DVT prophylaxis (Acute) Medical History Abdominal pain Active asthma ADD (attention deficit disorder) Adnexal mass Amenorrhea Amnesia Pt. states when she gets too stressed out she blacks out, Last one was months ago' ASCUS with positive high risk HPV 09/2020. Will f/u at [facility] for colposcopy after issue with RLQ pain is addressed. ASCUS with positive high risk HPV 09/2020. Patient needs colposcopy Asthma Atypical squamous cells of undetermined significance with positive high risk human papillomavirus Calculus of kidney and ureter Carpal tunnel syndrome Causalgia of left upper extremity Cervical disc disease Cervical disc disorder with radiculopathy Chest pain at rest pt. denies this Chronic wrist pain Cold sore Conversion disorder tremor, stutter, weakness CVA tenderness Dizziness Elevated fasting blood sugar Essential tremor Gastritis GERD (gastroesophageal reflux disease) History of urinary stone Carcamo sign present Human papilloma virus (HPV) DNA test positive Hydronephrosis IBS (irritable bowel syndrome) Insomnia Irritable bowel syndrome with diarrhea Kidney stones Knee pain Left-sided thoracic back pain Median nerve compression in left forearm Medication management Medication monitoring encounter Memory loss Migraines Neuralgia Nicotine dependence Numbness and tingling Pain in pelvis Post-cholecystectomy syndrome post casey diarrhea Preop examination Psychophysiologic disorder PTSD (post-traumatic stress disorder) Rectal bleeding Right arm weakness Right ureteral stone Seizure (~04/14/18) Pt. stated she had one one time 5 years ago, and has never had once since Seizure disorder Snoring Spasm of back muscles Upper respiratory infection pt. denies this Ureteral calculi Surgical History Carpal tunnel syndrome, left s/p left ECTR DOS: 01/23/20 H/O left knee surgery H/O ovarian cystectomy 10/18/2020. Laparoscopic right ovarian cystectomy for persistent 4 cm right ovarian cyst. History of carpal tunnel surgery of left wrist History of colonoscopy (~07/09/20) Repair of umbilical hernia S/P appendectomy S/P cholecystectomy S/P knee surgery Family History Father Cerebral aneurysm Social History Smoking/Tobacco Use Status: Current every day Tobacco Type: cigarettes Smoking packs per day: 0.5 Smoking cigarettes per day: 10.0 Years smoked: 30 Smoking pack-years: 15.00 Smoking risk assessment performed?: Yes Alcohol Intake: never Drug use: Never Substance use type: does not use Household members: significant other and other Details: BF-Tanner. S-Chance. Moved to [place] 2mo ago to be w/ GF. Number of Children: 1 current occupation: Unemployed secondary to disability Current gender identity: female Do you feel safe at home: Yes Do you feel safe in your relationship?: Yes Female Reproductive History Menstrual Duration of menses: 3-5 days (Average flow minimal dysmenorrhea) control method: none Exam Narrative Exam Narrative: General: Alert, well appearing, well nourished Head: Normocephalic, atraumatic Neck: Trachea midline, ?Neck supple. ENT: ?MMM.? No oropharygeal lesions or exudate. Cardiac: ?Tachycardiac, regular, no murmurs appreciated Resp: No respiratory distress. CTAB. Chest: Left anteior chest wall and left shoulder markedly tender to palpation Abd: ?Soft, non-distended, nontender : ?No suprapubic tenderness. Extremities: ?No deformities.? No peripheral edema. Neurologic: GCS 15. ? Moves all extremities freely against gravity Course Vital Signs Vital signs: Vital Signs Temperature 36.7 C 03/16/23 02:13 Pulse 115 H 03/16/23 02:13 Respiratory Rate 18 03/16/23 02:13 Blood Pressure 195/147 H 03/16/23 02:13 Pulse Oximetry 97 03/16/23 02:13 Temperature 36.7 C 03/16/23 02:13 Pulse 101 H 03/16/23 02:46 Pulse 102 H 03/16/23 02:46 Respiratory Rate 21 03/16/23 02:46 Respiratory Effort Short of Breath 03/16/23 02:17 Respiratory Depth Normal 03/16/23 02:17 Respiratory Pattern Normal 03/16/23 02:17 Blood Pressure 164/111 H 03/16/23 02:46 Blood Pressure Mean 130 03/16/23 02:46 Blood Pressure Position Supine 03/16/23 02:13 Pulse Oximetry 99 03/16/23 02:46 Oxygen Delivery Method Room Air 03/16/23 02:13 Oxygen Flow Rate 0 03/16/23 02:13 Pain Level 9 03/16/23 02:13 Medical Decision Making 43yo F with hx GERD, asthma, post-cholecystectomy syndrome, IBS, cervical disc disease, PTSD, HTN, presenting for left sided chest and shoulder pain since 8pm. Pain is moderate to severe and worse with left arm movement. Hypertensive and slightly tachcacrdiac on arrival, vital signs otherwise reassuring. Physical exam with reproducible left chest wall and shoulder tenderness to palpation. Suspect MSK in etiology however will evaluate for life threatening causes with EKG, CXR, labs. EKG sinus tachycardia, no ST segment or T wave abnormalities to suggest occlusive DE, no significant changes compared to prior 12/31/21. CXR independently reviewed, no focal pneumonia or pneumothorax on my view, agree with radiology read below. Labs reviewed as below, CBC reassuring with no significant abnormalities, CMP with Cr of 1.4 at baseline on [facility] record review, Mg slightly low at 1.6 (oral replacement ordered), borderline elevations on AST and ALP consistent with prior labs at [facility], normal coags, negative troponin in the setting of 4-5 hours of constant pain (would not repeat), normal BNP, negative d-dimer (would not further pursue pulmonary embolism with CT imaging. HEART score 3 (A1, RF2), low risk. Likely MSK in origin given reassuring workup and reproducible tenderness to palpation. Treated with tylenol, toradol, flexeril. On reassessment she reports feeling much improved, requests discharge home which is reasonable. Advised to followup closely with PCP. Discharged home, discharge instructions and return precautions were reviewed with patient who verbalized understanding. All questions were answered and she is in full agreement with the plan. Imaging Data Radiologic Study: Imaging: X-Ray Radiologist's impression: IMPRESSION: No acute findings. Lab Data Lab results reviewed: Yes I reviewed the patient's lab results. Labs: Laboratory Tests Range/Units 03/16/23 02:25 WBC (4.4-10.8) 10^3/uL 9.71 RBC (3.93-5.22) 10^6/uL 4.58 Hgb (11.2-15.7) g/dL 13.8 Hct (36.0-46.0) % 41.8 MCV (80-95) fL 91 MCH (27.0-33.0) pg 30.1 MCHC (32.0-36.0) % 33.0 RDW (11.7-14.6) % 13.2 Plt Count (130-400) 10^3/uL 307 MPV (8.0-11.0) fL 10.3 Immature Gran % 0.2 Neutrophils % 56.7 Lymphocytes % 32.3 Monocytes % 6.0 Eosinophils % 4.1 Basophils % 0.7 Nucleated RBC % (0.0-0.3) % 0.0 Absolute Neutrophils (1.2-6.7) 10^3/uL 5.50 Absolute Lymphocytes (1.2-3.4) 10^3/uL 3.14 Absolute Monocytes (0.1-0.8) 10^3/uL 0.58 Absolute Eosinophils (0.0-0.7) 10^3/uL 0.40 Absolute Basophils (0.0-0.2) 10^3/uL 0.07 PT (9.1-11.1) sec 9.8 INR (0.9-1.1) 1.0 APTT (23.6-32.8) sec 29.9 D-Dimer (<500) ng/mlFEU 172 Sodium (136-145) mmol/L 138 Potassium (3.5-5.1) mmol/L 3.6 Chloride (98-107) mmol/L 102 Carbon Dioxide (21.0-32.0) mmol/L 26.9 Anion Gap (3-11) mmol/L 9.1 BUN (7-18) mg/dL 21 H Creatinine (0.55-1.02) mg/dL 1.4 H Est GFR (CKD-EPI 2020) (mL/min/1.73m2) 47.28 Glucose (74-106) mg/dL 209 H Calcium (8.5-10.1) mg/dL 8.9 Magnesium (1.8-2.4) mg/dL 1.6 L Total Bilirubin (0.2-1.0) mg/dL 0.2 AST (15-37) U/L 57 H ALT (14-59) U/L 49 Alkaline Phosphatase (46-116) U/L 160 H Troponin I (<or=60) ng/L < 50 NT-Pro-B Natriuret Pep (<300) pg/mL 84 Total Protein (6.4-8.2) g/dL 7.7 Albumin (3.4-5.0) g/dL 3.5 Beta HCG, Quant (1-3) mIU/mL 1 Quality:SDOH Health Related Social Needs: No Data to Display Discharge Plan Disposition Patient Disposition: Home Discharge Details Clinical Impression: Chest pain Primary Care Provider: Elizabeth Benton ED Provider: Radha Griffin Home Meds and New Rx's Prescriptions: No Action amitriptyline 25 mg tablet 25 mg PO HS chlorthalidone 25 mg tablet 25 mg PO DAILY Qty: 90 3RF Hold Instructions: Changed by Provider naloxone [Narcan] 4 mg/actuation spray,non-aerosol 1 spray LOGAN ONCE PRN fluticasone propionate [Flovent HFA] 44 mcg/actuation HFA aerosol inhaler 2 puff inhalation BID Rx Instructions: administer with spacer oxycodone 5 mg tablet 5 mg PO 5X/DAY Patient Comments: TAKE 2 TABLETS BY MOUTH FIVE TIMES DAILY lamotrigine 150 mg tablet 200 mg PO HS Patient Comments: TAKE 1 TABLET BY MOUTH EVERY DAY AT BEDTIME pantoprazole 40 mg tablet,delayed release (DR/EC) 40 mg PO DAILY Patient Comments: TAKE 1 TABLET BY MOUTH ONCE DAILY albuterol sulfate [ProAir HFA] 90 mcg/actuation HFA aerosol inhaler 2 puff INHALATION PRN PRN Patient Comments: INL 2 PFS PO Q 4 H PRN zolpidem 12.5 mg tablet,ext release multiphase 12.5 mg PO HS Patient Comments: TAKE 1 TABLET BY MOUTH EVERY DAY AT BEDTIME ondansetron 4 mg tablet,disintegrating 4 mg PO Q8H PRN (Reason: nausea and vomiting) Qty: 30 0RF estradiol 1 mg tablet 1 mg PO DAILY Patient Comments: TAKE 1 TABLET BY MOUTH DAILY potassium 20 mg tablet,chewable 200 mg PO DAILY Discharge Instructions Instructions: Chest Pain (ED) Additional Instructions: Tylenol and ibuprofen over the counter for pain; follow the directions on the bottle. Call your primary care doctor today to schedule an appointment for within the next 48 hours to followup on your visit today. Return to the emergency department for new or worsening symptoms including new/different/worse pain, difficulty breathing, feeling like you are going to pass out, or if you have any other concerns. Referrals: Elizabeth Benton [Primary Care Provider] -
[2023-03-16 03:09] LABS: PTT Activated 29.9 sec (23.6-32.8); Prothrombin Time 9.8 sec (9.1-11.1)
[2023-03-16 03:14] LABS: ALT 49 U/L (14-59); AST 57 U/L (15-37); Albumin 3.5 g/dL (3.4-5.0); Alkaline Phosphatase 160 U/L (46-116); Anion Gap 9.1 mmol/L (3-11); BUN 21 mg/dL (7-18); Bilirubin, Total 0.2 mg/dL (0.2-1.0); CO2 26.9 mmol/L (21.0-32.0); CREATININE 1.4 mg/dL (0.55-1.02); Calcium 8.9 mg/dL (8.5-10.1); Chloride 102 mmol/L (98-107); Estimated GFR 47.28 (mL/min/1.73m2); Glucose 209 mg/dL (74-106); HCG Quant, Pregnancy 1 mIU/mL (1-3); Magnesium 1.6 mg/dL (1.8-2.4); Potassium 3.6 mmol/L (3.5-5.1); Sodium 138 mmol/L (136-145); Total Protein 7.7 g/dL (6.4-8.2); Troponin I < 50 ng/L (<or=60)
[2023-03-16 03:25] LABS: D-Dimer 172 ng/mlFEU (<500); NT-proBNP 84 pg/mL (<300)
[2023-03-16] MEDS: Ketorolac 15 MG/ML VIAL IVP (03:53)
[2023-03-16] MEDS: Magnesium Gluconate 500 MG TAB PO (05:15)
--- NOTE | 2023-03-16 05:15 | DI.VRAD_ITS ---
PROCEDURE INFORMATION: Exam: XR Chest Exam date and time: 03/16/2023 3:09 AM Age: 43 years old Clinical indication: Left-sided; Patient HX: L sided chest pain TECHNIQUE: Imaging protocol: Radiologic exam of the chest. Views: 2 views. COMPARISON: CR XR PORTABLE CHEST AP 09/16/2019 10:54 PM FINDINGS: Lungs: Unremarkable. No consolidation. Pleural spaces: Unremarkable. No pleural effusion. No pneumothorax. Heart/Mediastinum: Unremarkable. No cardiomegaly. Bones/joints: Unremarkable. IMPRESSION: No acute findings. Dictated and Authenticated by: Uzair Mitchell MD. Ordering:MACARIO Garcia MD
== END 2023-03-16 05:56 | disposition home or self-care (01) ==
PROVIDERS: Emergency Provider Student in an Organized Health Care Education/Training Program; PCP Physician Assistant Medical
DX: R07.9 Chest pain, unspecified (principal); I10 Essential (primary) hypertension; M79.622 Pain in left upper arm; K21.9 Gastro-esophageal reflux disease without esophagitis; M50.10 Cervical disc disorder with radiculopathy, unspecified cervical region
CPT/HCPCS: 36415; 80053; 93005; 96365; 96375; 99284; 71046; 83735; 83880; 84484; 84702; 85025; 85379; 85610; 85730; 93010; 99283; J0131; J1885

== ENCOUNTER 2023-04-16 17:39 | Emergency (ER) | payer MEDICAID, SELFPAY ==
[2023-04-16] VITALS (16 sets, daily range): BP systolic 134–174; BP diastolic 89–133; PULSE 84–112; RESP 18; O2SAT 94–99
--- NOTE | 2023-04-16 17:45 | DI.CT_ITS ---
Exam(s) CT ABDOMEN PELVIS W EXAM: CT ABDOMEN PELVIS W CLINICAL HISTORY: upper abd pain nausea vomiting. TECHNIQUE: Imaging Protocol: Axial computed tomography images with coronal and sagittal reformatted images were created and reviewed CONTRAST MATERIAL: Intravenous: Omnipaque-350 100cc Oral: None COMPARISON: CT CT RENAL COLIC WO from 09/11/[address] ABDOMEN PELVIS W from 11/19/[address] ABDOMEN PELVIS W from 09/15/2022 FINDINGS: VISUALIZED LUNG BASES: No nodules nor pleural effusions evident. ABDOMEN: There is no ascites. LIVER: Hepatomegaly and hepatic steatosis again noted. Previously described hyperdense enhancing les ions in the liver are again either representing hemangiomas or focal fatty sparing. No new liver le sions identified. No dilated intrahepatic ducts. GALLBLADDER/BILIARY: Gallbladder is again noted be surgically absent. CBD is not dilated. PANCREAS: No evidence of pancreatic mass nor dilatation of the pancreatic duct. SPLEEN: Spleen is not enlarged. No obvious intrasplenic lesions. Splenic and portal veins are paten t. ADRENALS: Small nodule in the left adrenal gland is unchanged from CT scan 2020 and consistent with b enign adenoma. Right adrenal gland unremarkable. None KIDNEYS:No cysts evident. No solid renal masses. No calculi nor hydronephrosis.. ABDOMINAL AORTA: There is moderate atherosclerotic involvement of the inferior aspect of the abdomina l aorta. No prominent aneurysm. No significant dilatation of the iliac arteries. LYMPH NODES:There is no retroperitoneal nor paraaortic adenopathy. ABDOMINAL WALL: No evidence of significant anterior abdominal wall nor inguinal hernia. GI: There is evidence of appendectomy. No bowel obstruction. No free air. No abscess. PELVIS: GI: Prior appendectomyno significant diverticular disease. LYMPH NODES: There is no intrapelvic nor inguinal adenopathy. REPRODUCTIVE: There has been hysterectomy and the previously present right adnexal mass is no longer seen. There is no abnormal tissue in the pelvis and no abnormal fluid. URINARY BLADDER: Unremarkable. OSSEOUS: No fractures and no significant osseous lesions. IMPRESSION: 1. No acute findings in the abdomen pelvis. 2. There is evidence of previous cholecystectomy, appendectomy, and hysterectomy. No evidence of bow el obstruction, free air, nor abscess nor new masses nor lymphadenopathy. 3. Stable hyperenhancing 2 lesions in the liver which are most probably hemangiomas RADIATION DOSE DELIVERED: 1,004.98mGy.cm Total DLP DATA REPOSITORY: All CT scans at this facility are submitted to the National Radiology Data Registry (NRDR) Dose Index Registry (DIR) with the [employer] (ACR). RADIATION OPTIMIZATION: All CT scans at this facility use at least one of these dose optimization te chniques: automated exposure control; mA and/or kV adjustment per patient size (includes targeted exa ms where dose is matched to clinical indication); or iterative reconstruction.
--- NOTE | 2023-04-16 18:02 | ED.GENADUL_ITS ---
HPI General Date/Time Provider Initiated Documentation: 04/16/23 17:51 . HPI Narrative: 43-year-old female history of ovarian cancer in remission after hysterectomy, multiple abdominal surgeries including appendectomy cholecystectomy abdominal wall hernia repair/mesh presents with chronic abdominal pain epigastric in nature over the last month, is awaiting follow-up with specialist to evaluate this chronic pain. Patient has nausea vomiting and pain fluctuating over the last several days weeks and months. Normal bowel movements. Related Data Home Medications Medication Instructions Recorded Confirmed naloxone 4 mg/actuation nasal 1 spray intranasal ONCE PRN 04/19/18 04/16/23 spray (Narcan) amitriptyline 25 mg tablet 25 mg PO HS 04/18/20 04/16/23 albuterol sulfate 90 mcg/actuation 2 puff inhalation PRN PRN 05/14/20 04/16/23 aerosol inhaler (ProAir HFA) pantoprazole 40 mg tablet,delayed 40 mg PO DAILY 05/14/20 04/16/23 release zolpidem 12.5 mg tablet,extended 12.5 mg PO HS 05/14/20 04/16/23 release,multiphase fluticasone propionate 44 2 puff inhalation BID 06/21/20 04/16/23 mcg/actuation HFA aerosol inhaler (Flovent HFA) oxycodone 5 mg tablet 5 mg PO 5X/DAY 11/19/20 04/16/23 lamotrigine 150 mg tablet 200 mg PO HS 12/07/20 04/16/23 chlorthalidone 25 mg tablet 25 mg PO DAILY #90 tabs 12/31/21 04/16/23 ondansetron 4 mg disintegrating 4 mg PO Q8H PRN nausea and 09/15/22 04/16/23 tablet vomiting #30 tabs estradiol 1 mg tablet 1 mg PO DAILY 11/21/22 04/16/23 potassium 20 mg chewable tablet 200 mg PO DAILY 03/16/23 04/16/23 Previous Rx's Medication Instructions Recorded chlorthalidone 25 mg tablet 25 mg PO DAILY #90 tabs 12/31/21 ondansetron 4 mg disintegrating 4 mg PO Q8H PRN nausea and 09/15/22 tablet vomiting #30 tabs Allergies Allergy/AdvReac Type Severity Reaction Status Date / Time labetalol AdvReac Intermediate nausea and Verified 04/16/23 17:48 vomiting lisdexamfetamine AdvReac Intermediate hypertensio Verified 04/16/23 17:48 [From Vyvanse] n prednisone AdvReac Intermediate It makes Verified 04/16/23 17:48 me feel weird codeine AdvReac Mild Nausea Verified 04/16/23 17:48 morphine AdvReac Mild Nausea Verified 04/16/23 17:48 tramadol HCl [From Ultram] AdvReac Mild Nausea Verified 04/16/23 17:48 cariprazine [From Vraylar] AdvReac Unknown vomiting Verified 04/16/23 17:48 tamsulosin [From Flomax] AdvReac light Verified 04/16/23 17:48 headed/dizzy tegaderm tape AdvReac Intermediate ariza my Uncoded 04/16/23 17:48 skin General Stated Complaint: Abd Prob JOEL: 3 Review of Systems Narrative: Review of Systems Constitutional: negative Eyes: negative ENT: negative Cardiovascular: negative Respiratory: negative Gastrointestinal: Abdominal pain nausea vomiting : negative Musculoskeletal: negative Skin: negative Neurologic: negative Psych: negative Exam Narrative Exam Narrative: Physical Examination General: alert, awake, cooperative, resting comfortably, no acute distress HEENT: normocephalic, atraumatic; PERRL, EOM intact, conjunctiva normal; no nasal discharge; moist mucous membranes, oral and pharyngeal mucosa normal, tolerating secretions Neck: supple, trachea midline; full ROM Chest: normal to inspection Respiratory: normal respiratory effort, speaking in full sentences, clear to auscultation, no wheezing, rales or rhonchi Cardiac: regular rate, regular rhythm, S1S2 intact, no murmurs rubs or gallops GI: abdomen soft, nondistended, subjective tenderness in the epigastrium without guarding or rebounding, multiple healed laparoscopic surgical sites across abdominal wall Skin: no lesions, rashes or trauma appreciated Neuro: AAOx3, normal speech, moving all extremities Psych: Appropriate mood and affect Course Vital Signs Vital signs: Vital Signs Pulse 112 H 04/16/23 17:41 Blood Pressure 174/133 H 04/16/23 17:41 Pulse Oximetry 99 04/16/23 17:41 Pulse 112 H 04/16/23 17:41 Respiratory Effort Normal 04/16/23 17:48 Blood Pressure 174/133 H 04/16/23 17:41 Blood Pressure Position Sitting 04/16/23 17:41 Pulse Oximetry 99 04/16/23 17:41 Oxygen Delivery Method Room Air 04/16/23 17:41 Oxygen Flow Rate 0 04/16/23 17:41 Pain Level 10 04/16/23 17:41 Medical Decision Making 43-year-old female history of ovarian cancer in remission post hysterectomy, multiple abdominal surgeries including cholecystectomy and appendectomy as well as abdominal wall hernia repair with mesh presents with epigastric abdominal discomfort over the past month intermittent in nature associate with nausea and vomiting. Patient uncomfortable appearing nonperitoneal however does have subjective discomfort epigastrium on palpation. No distention. Normal bowel movements per patient. Consider gastritis versus early bowel obstruction versus migration of abdominal wall mesh versus recurrent abdominal wall hernia versus pancreatitis versus duodenitis versus recurrence of malignancy versus cancer versus constipation versus colitis or enteritis. Will provide fluid analgesia antiemetics will obtain basic labs urinalysis and CT abdomen pelvis. Close reassessment 20: 27 evidence of hepatomegaly and stable hemangiomas. Patient feeling better after medication. Labs largely unremarkable. Home care instructions and return precautions given. Will follow-up with primary care physician Quality:SDOH Health Related Social Needs: No Data to Display PFSH All Active Problems (Updated 04/16/23 @ 20:28 by Nicholas Vásquez MD) Abdominal pain (Acute) Postoperative pain (Acute) S/P laparoscopic assisted vaginal hysterectomy (LAVH) (Acute) Bilateral kidney stones (Acute) 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 L>R side. Normal CT & u/s of abdomen and pelvis. 05/01/21. Rx Cipro and Flagyl times 2W Constipation (Acute) Bipolar 1 disorder (Chronic) Borderline personality disorder (Acute) ANN (obstructive sleep apnea) (Chronic) Chronic GERD (Chronic) Acute diarrhea (Acute) Colitis (Acute) DVT prophylaxis (Acute) Medical History Abdominal pain Active asthma ADD (attention deficit disorder) Adnexal mass Amenorrhea Amnesia Pt. states when she gets too stressed out she blacks out, Last one was months ago' ASCUS with positive high risk HPV 09/2020. Will f/u at [facility] for colposcopy after issue with RLQ pain is addressed. ASCUS with positive high risk HPV 09/2020. Patient needs colposcopy Asthma Atypical squamous cells of undetermined significance with positive high risk human papillomavirus Calculus of kidney and ureter Carpal tunnel syndrome Causalgia of left upper extremity Cervical disc disease Cervical disc disorder with radiculopathy Chest pain at rest pt. denies this Chronic wrist pain Cold sore Conversion disorder tremor, stutter, weakness CVA tenderness Dizziness Elevated fasting blood sugar Essential tremor Gastritis GERD (gastroesophageal reflux disease) History of urinary stone Carcamo sign present Human papilloma virus (HPV) DNA test positive Hydronephrosis IBS (irritable bowel syndrome) Insomnia Irritable bowel syndrome with diarrhea Kidney stones Knee pain Left-sided thoracic back pain Median nerve compression in left forearm Medication management Medication monitoring encounter Memory loss Migraines Neuralgia Nicotine dependence Numbness and tingling Pain in pelvis Post-cholecystectomy syndrome post casey diarrhea Preop examination Psychophysiologic disorder PTSD (post-traumatic stress disorder) Rectal bleeding Right arm weakness Right ureteral stone Seizure (~04/14/18) Pt. stated she had one one time 5 years ago, and has never had once since Seizure disorder Snoring Spasm of back muscles Upper respiratory infection pt. denies this Ureteral calculi Surgical History Carpal tunnel syndrome, left s/p left ECTR DOS: 01/23/20 H/O left knee surgery H/O ovarian cystectomy 10/18/2020. Laparoscopic right ovarian cystectomy for persistent 4 cm right ovarian cyst. History of carpal tunnel surgery of left wrist History of colonoscopy (~07/09/20) Repair of umbilical hernia S/P appendectomy S/P cholecystectomy S/P knee surgery Family History Father Cerebral aneurysm Social History Smoking/Tobacco Use Status: Current every day Tobacco Type: cigarettes Smoking packs per day: 0.5 Smoking cigarettes per day: 10.0 Years smoked: 30 Smoking pack-years: 15.00 Smoking risk assessment performed?: Yes Alcohol Intake: never Drug use: Never Substance use type: does not use Household members: significant other and other Details: BF-Tanner. S-Chance. Moved to [place] 2mo ago to be w/ GF. Number of Children: 1 current occupation: Unemployed secondary to disability Current gender identity: female Do you feel safe at home: Yes Do you feel safe in your relationship?: Yes Female Reproductive History Menstrual Duration of menses: 3-5 days (Average flow minimal dysmenorrhea) control method: none Discharge Plan Disposition Patient Disposition: Home Condition: Improving Discharge Details Chief Complaint: Abd Prob Clinical Impression: Abdominal pain Primary Care Provider: Elizabeth Benton ED Provider: Nicholas Vásquez Home Meds and New Rx's Prescriptions: No Action amitriptyline 25 mg tablet 25 mg PO HS chlorthalidone 25 mg tablet 25 mg PO DAILY Qty: 90 3RF Hold Instructions: Changed by Provider naloxone [Narcan] 4 mg/actuation spray,non-aerosol 1 spray LOGAN ONCE PRN fluticasone propionate [Flovent HFA] 44 mcg/actuation HFA aerosol inhaler 2 puff inhalation BID Rx Instructions: administer with spacer oxycodone 5 mg tablet 5 mg PO 5X/DAY Patient Comments: TAKE 2 TABLETS BY MOUTH FIVE TIMES DAILY lamotrigine 150 mg tablet 200 mg PO HS Patient Comments: TAKE 1 TABLET BY MOUTH EVERY DAY AT BEDTIME pantoprazole 40 mg tablet,delayed release (DR/EC) 40 mg PO DAILY Patient Comments: TAKE 1 TABLET BY MOUTH ONCE DAILY albuterol sulfate [ProAir HFA] 90 mcg/actuation HFA aerosol inhaler 2 puff INHALATION PRN PRN Patient Comments: INL 2 PFS PO Q 4 H PRN zolpidem 12.5 mg tablet,ext release multiphase 12.5 mg PO HS Patient Comments: TAKE 1 TABLET BY MOUTH EVERY DAY AT BEDTIME ondansetron 4 mg tablet,disintegrating 4 mg PO Q8H PRN (Reason: nausea and vomiting) Qty: 30 0RF estradiol 1 mg tablet 1 mg PO DAILY Patient Comments: TAKE 1 TABLET BY MOUTH DAILY potassium 20 mg tablet,chewable 200 mg PO DAILY Discharge Instructions Instructions: Abdominal Pain (ED) Additional Instructions: Please follow-up with your primary care physician.
[2023-04-16 18:09] LABS: Abs Immature Grans 0.03 10^3/uL (0.0-0.06); Absolute Basophil Count 0.09 10^3/uL (0.0-0.2); Absolute Eosinophil Count 0.35 10^3/uL (0.0-0.7); Absolute Lymphocyte Count 3.18 10^3/uL (1.2-3.4); Absolute Monocyte Count 0.61 10^3/uL (0.1-0.8); Absolute Neutrophil Count 6.08 10^3/uL (1.2-6.7); Basophils % 0.9; Eosinophils % 3.4; HCT 43.7 % (36.0-46.0); HGB 14.3 g/dL (11.2-15.7); Immature Grans % 0.3; Lymphocytes % 30.8; MCH 29.4 pg (27.0-33.0); MCHC 32.7 % (32.0-36.0); MCV 90 fL (80-95); MPV 9.9 fL (8.0-11.0); Monocytes % 5.9; Neutrophils % 58.7; Platelet Count 345 10^3/uL (130-400); RBC 4.87 10^6/uL (3.93-5.22); RDW 13.4 % (11.7-14.6); RDW-SD 44.7 fL; WBC 10.34 10^3/uL (4.4-10.8)
[2023-04-16] MEDS: Normal Saline 1,000 ML 1000 ML IV (18:12)
[2023-04-16] MEDS: fentaNYL 100 MCG/2 ML VIAL 50 MCG IVP (18:13)
[2023-04-16] MEDS: Ondansetron 4 MG/2 ML VIAL IVP (18:13)
[2023-04-16] MEDS: ACETAMINOPHEN 1,000 MG/100 ML BTL 400 MG IVPB (18:14)
[2023-04-16 18:28] LABS: Bilirubin Negative (Negative); Blood Negative (Negative); Clarity Sl Cloudy (Clear); Glucose Negative (Negative); Ketones Negative (Negative); Leukocyte Esterase Negative (Negative); Nitrite Negative (Negative); Specific Gravity 1.025 (1.005-1.025); Urobilinogen 0.2 mg/dL (Up to 0.2); pH 5.5 (5-8)
[2023-04-16] MEDS: Famotidine 20 MG/2 ML VIAL IVP (18:30)
[2023-04-16 18:31] LABS: ALT 52 U/L (14-59); AST 59 U/L (15-37); Albumin 3.7 g/dL (3.4-5.0); Alkaline Phosphatase 167 U/L (46-116); BUN 17 mg/dL (7-18); Bilirubin, Total 0.2 mg/dL (0.2-1.0); CREATININE 1.2 mg/dL (0.55-1.02); Calcium 9.5 mg/dL (8.5-10.1); Chloride 101 mmol/L (98-107); Estimated GFR 56.89 (mL/min/1.73m2); Glucose 134 mg/dL (74-106); Lipase 33 U/L (16-77); Potassium 4.1 mmol/L (3.5-5.1); Sodium 139 mmol/L (136-145); Total Protein 8.2 g/dL (6.4-8.2)
[2023-04-16 18:33] LABS: RBC Negative HPF (0-2); WBC Negative HPF (0-5)
[2023-04-16 18:34] LABS: Bacteria Few HPF (Negative); C & S Indicated? No; Casts Negative LPF (Negative); Crystals Negative HPF (Negative); Epithelial Cells Many HPF (Negative); Mucus Negative (Negative)
[2023-04-16] MEDS: Normal Saline - Diluent 50 ML VIAL IJ (19:21)
[2023-04-16] MEDS: Omnipaque 350 MG/ML 100 ML BTL IJ (19:21)
[2023-04-16] MEDS: Normal Saline Flush 10 ML SYR IVP (19:22)
--- NOTE | 2023-04-16 19:39 | DI.VRAD_ITS ---
PROCEDURE INFORMATION: Exam: CT Abdomen And Pelvis With Contrast Exam date and time: 04/16/2023 7:13 PM Age: 43 years old Clinical indication: Nausea and vomiting; Abdominal pain; Epigastric; Prior surgery; Surgery date: 6+ months; Surgery type: PT sts had hysterectomy w h/o hernia surg TECHNIQUE: Imaging protocol: Computed tomography of the abdomen and pelvis with contrast. Contrast material: OMNI 350; Contrast volume: 100 ml; Contrast route: INTRAVENOUS (IV); COMPARISON: CT ABDOMEN PELVIS W 09/15/2022 4:54 PM FINDINGS: Liver: Similar hepatomegaly with diffuse hepatic steatosis. There are stable 2.4 cm hyperenhancing ovoid lesion in segment 8 of the liver, and a 1.1 cm ovoid hyperenhancing lesion in the superior aspect of segment 8 of the liver, and a 12 mm lesion in segment 7 of the liver, likely representing hemangiomas. No new liver lesion. Gallbladder and bile ducts: Post cholecystectomy with no biliary dilatation. Pancreas: Normal. No ductal dilation. Spleen: Normal. No splenomegaly. Adrenal glands: Normal. No mass. Kidneys and ureters: Normal. No hydronephrosis. Stomach and bowel: There is fatty infiltration of the wall of the ascending and transverse colon that can be related to chronic colitis. Appendix: Post appendectomy. Intraperitoneal space: Unremarkable. No free air. No significant fluid collection. Vasculature: There is pelvic phleboliths. Lymph nodes: Unremarkable. No enlarged lymph nodes. Urinary bladder: Unremarkable as visualized. Reproductive: Postsurgical changes of hysterectomy. Bones/joints: There is minimal degenerative disease of bilateral sacroiliac joints. There is mild degenerative disease of bilateral hip joints. Multilevel anterior osteophytes of the lower thoracic spine. Soft tissues: Unremarkable. IMPRESSION: 1. No acute intra-abdominal process. 2. Hepatomegaly with hepatic steatosis. 3. Stable hyperenhancing liver lesions, likely representing hemangiomas versus foci of fat sparing. Dictated and Authenticated by: Mansoor Ingram MD. Ordering:LEO Peterson MD
[2023-04-16] MEDS: Ondansetron O.D.T. 4 MG TABEF, 3 TABS/BTL PO (20:35)
== END 2023-04-16 20:38 | disposition home or self-care (01) ==
PROVIDERS: Emergency Provider Emergency Medicine; PCP Physician Assistant Medical
DX: R10.9 Unspecified abdominal pain (principal); R11.2 Nausea with vomiting, unspecified; Z96.89 Presence of other specified functional implants; Z85.43 Personal history of malignant neoplasm of ovary; Z87.19 Personal history of other diseases of the digestive system
CPT/HCPCS: 80053; 83690; 96374; 96375; 99285; 74177; 81003; 81015; 85025; 99283; J0131; J2405; J3010; J3490

== ENCOUNTER → 2023-06-23 03:20 | Outpatient (CLI) | payer MEDICAID, SELFPAY ==
--- NOTE | 2023-06-23 10:15 | DI.RAD_ITS ---
Exam(s) XR FINGER LT MIDDLE EXAM: XR FINGER LT MIDDLE CLINICAL HISTORY: S69.92XA Injury of LT middle finger, trauma. TECHNIQUE: 2D digital imaging was performed. Three views. COMPARISON: None. FINDINGS: BONES: No acute fracture is present. No bony destructive lesion is seen. JOINTS: No dislocation present. SOFT TISSUE: Normal. IMPRESSION: No evidence of acute fracture, dislocation, or subluxation. DATA REPOSITORY: RADIATION DOSE DELIVERED:
== END ==
PROVIDERS: PCP Physician Assistant Medical; Visit Provider Physician Assistant Medical
DX: S69.92XA Unspecified injury of left wrist, hand and finger(s), initial encounter (principal); X58.XXXA Exposure to other specified factors, initial encounter
CPT/HCPCS: 73140

== ENCOUNTER 2023-08-30 21:02 | Emergency (ER) | payer MEDICAID, SELFPAY ==
--- OUTSIDE RECORDS SUMMARY | 2023-08-30 21:06 | XMS_ITS | Continuity of Care Document ---
Author Name Unknown Organization [facility] Address [address] [place] [address] Care Team Providers Care Jewel Bearing Broacher Name Role Phone Elizabeth Benton Primary Care Physician Encounter [facility] Date(s): 02/16/23 - 02/16/23 [facility] [address] [place] [address] Encounter Diagnosis Cervical disc disorder with radiculopathy(Discharge Diagnosis) - 02/16/23 Foot pain, right(Discharge Diagnosis) - 02/16/23 Discharge Disposition: Home or Self Care Attending [...] and Plan Future Appointments Future Scheduled Tests Laboratory* Creatinine 08/28/22 Radiology* US Abdomen Limited 08/12/22 Immunizations Given and Recorded Vaccine Date Status [...] MOUTH EVERY DAY AT BEDTIME, # 90 tab,4 Refill(s), Pharmacy: [facility] #[id number] Start Date: 10/07/22 Status: Ordered Blood glucose test strips Blood glucose test strips, Test blood sugars 1x daily after largest meal, 2x daily if sick, for blood glucose levels, Supply, See instructions, # 1 EA, 3 Refill(s), Pharmacy: [facility] #[id number] Start Date: 10/06/22 Status: Ordered chlorthalidone 25 mg oral tablet See Instructions Start Date: 02/16/23 Status: Ordered colchicine 0.6 mg oral capsule 0.6 mg = 1 cap, Oral, BID, PRN gout pain, # 6 cap, 1 Refill(s), Pharmacy: [facility] #[id number] Start Date: 10/15/22 Stop Date: 10/21/22 Status: Ordered estradiol 1 mg oral tablet 0 Refill(s) Start Date: 02/16/23 Status: Ordered Flovent HFA 44 mcg/inh inhalation aerosol INHALE 2 PUFFS BY MOUTH TWICE DAILY Start Date: 10/02/21 Status: Ordered glood glucose lancets glood glucose lancets, test 1x daily after biggest meal, and 2x if sick, Supply, See instructions, # 1 EA, 3 Refill(s), Pharmacy: [facility] #[id number] Start Date: 10/06/22 Status: Ordered Glucometer Glucometer, Test blood glucose 1x daily after largest meal, 2x daily if sick, Supply, See instructions, # 1 EA, 0 Refill(s), Pharmacy: [facility] #[id number] Start Date: 10/06/22 Status: Ordered LaMICtal 200 mg oral tablet 200 mg = 1 tab, Oral, Daily, take at bedtime, # 90 tab, 4 Refill(s), Pharmacy: [facility]#[id number] Start Date: 10/06/22 Stop Date: 12/30/23 Status: Ordered MetFORMIN (Eqv-Glucophage XR) 500 mg oral tablet, extended release 500 mg = 1 tab, Oral, Daily, # 90 tab, 4 Refill(s), Pharmacy: [facility] #[id number] Start Date: 10/15/22 Stop Date: 01/08/24 Status: Ordered Metoprolol Succinate ER 100 mg oral tablet, extended release TAKE 1 TABLET BY MOUTH DAILY Start Date: 02/16/23 Status: Ordered Narcan 4 mg/0.1 mL nasal spray INSTILL 1 SPRAY NEEDED INTO ONE SIDE OF NOSTRIL Start Date: 10/02/21 Status: Ordered omeprazole 40 mg oral delayed release capsule 0 Refill(s) Start Date: 02/16/23 Status: Ordered ondansetron 4 mg oral tablet 4 mg = 1 tab, Oral, cap, 0 Refill(s) Start Date: 08/13/22 Status: Ordered oxyCODONE 10 mg oral tablet 10 mg = 1 tab, Oral, 5 times per day, # 140 tab, 0 Refill(s), Pharmacy: [facility] #[id number] Start Date: 10/06/22 Stop Date: 11/03/22 Status: Ordered oxyCODONE 5 mg oral tablet 5 mg = 1 tab, Oral, 5 times per day, # 35 tab, 0 Refill(s), Pharmacy: [facility] #[id number], 171.45, cm, 02/16/23 8:38:00 EST, Height, 90.13, kg, 02/16/23 8:13:00 EST, Weight Dosing Start Date: 02/16/23 Stop Date: 02/23/23 Status: Ordered oxyCODONE 5 mg oral tablet 5 mg = 1 tab, Oral, 5 times per day, # 140 tab, 0 Refill(s), Pharmacy: [facility] #[id number],171.45, cm, 02/16/23 9:07:00 EST, Height, 90.13, kg, 02/16/23 8:13:00 EST, Weight Dosing Start Date: 02/16/23 Stop Date: 03/16/23 Status: Ordered pantoprazole 40 mg oral delayed release tablet 40 mg = 1 tab, Oral, Daily, # 90 tab, 4 Refill(s), Pharmacy: [facility] #[id number] Start Date: 10/07/22 Status: Ordered Potassium Chloride (Eqv-K-Tab) 20 mEq oral tablet, extended release 90 EA, TAKE 1 TABLET BY MOUTH DAILY, 0 Refill(s) Start Date: 10/06/22 Status: Ordered verapamil 120 mg/12 hours oral tablet, extended release TAKE 2 TABLETS BY MOUTH DAILY Start Date: 02/16/23 Status: Ordered zolpidem 12.5 mg oral tablet, extended release 12.5 mg = 1 tab, Oral, every day at bedtime, PRN as needed for insomnia, # 30 tab, 5 Refill(s), Pharmacy: [facility] #[id number] Start Date: 10/06/22 Stop Date: 04/04/23 Status: Ordered Problem List Condition Confirmation Course [...] stone Confirmed Active Knee pain Confirmed Active Ovarian mass, right Confirmed 09/15/22 Active Medication monitoring Confirmed 02/11/18 Active Migraine [...] Procedure Date Related Diagnosis Body Site Status Ovary operation 1 09/30/22 Complet ed LAPS RPR RECURRENT INCISIONA L HERNIA REDUCIBLE 02/27/21 Completed Laparoscopic excision of cys t of right ovary (procedure) 10/18/20 Completed Colonoscopy 07/08/20 Completed Neuroplasty and%2For transpo sition; median nerve at carpal tunnel 01/23/20 Co mpleted Cholecystectomy; 08/16/08 Complete d Cholecystectomy; 08/15/08 Complete d Appendectomy; Completed Procedure on knee 2 Compl eted Removal of gallbladder Co mpleted Repair of umbilical hernia Completed Repair of umbilical hernia (procedure) Completed 1Removal of ovarian mass. 2orthopedic surgery Results Laboratory List Name Date Drug Screen Urine (Drug Screen Urine w/ Opiate Conf) 02/16/23 Most recent to oldest [Reference Range]: 1 U Amph Scrn [Negative] Negative 1 (02/16/23 10:25 AM) U Benzodia Scrn [Negative] Positive *ABN* (02/16/23 10:25 AM) U Cocaine Scrn [Negative] Negative (02/16/23 10:25 AM) U Trina Scrn [Negative] Negative (02/16/23 10:25 AM) U Opiate Scrn [Negative] Negative (02/16/23 10:25 AM) U Oxy Scrn [Negative] Negative (02/16/23 10:25 AM) U PCP Scrn [Negative] Negative (02/16/23 10:25 AM) U THC Scr [Negative] Negative (02/16/23 10:25 AM) U Methadone Scr [Negative] Negative (02/16/23 10:25 AM) U Buprenorph Scr [Negative] Negative (02/16/23 10:25 AM) U mAMP Scr [Negative] Negative (02/16/23 10:25 AM) U TCA Scr [Negative] Positive *ABN* (02/16/23 10:25 AM) 1Interpretive Data: These are unconfirmed screening results, to be used only for medical (i.e. treatment) purposes. These screening results must not be used for non-medical purposes (e.g. employment or legal testing). New method started 09/12/10 Test Name Reference Range (Cut-off) THC Neg (50 ng/mL) PCP Neg (25 ng/mL) DESHAWN Neg (150 ng/mL) MET Neg (500 ng/mL OPI Neg (100 ng/mL) AMP Neg (500 ng/mL BZO Neg (150 ng/mL) TCA Neg (300 ng/mL) MTD Neg (200 ng/mL) BAR Neg (200 ng/mL) OXY Neg (100 ng/mL) PPX Neg (300 ng/mL) BUP Neg (10 ng/mL) Social History Social History Type Response Tobacco Current everyday tob acco user Tobacco Use:. 1/2 to 1 pack per day per day. 25 year(s). Total pack years: 30. Sex Female Patient Care team information Care Team Personnel Name: Elizabeth Benton PA-C Position: Physician Member Role: Primary Care Physician Address: Address: [address] [place] [id number]
--- OUTSIDE RECORDS SUMMARY | 2023-08-30 21:06 | XMS_ITS | Continuity of Care Document ---
Author Name Unknown Organization [facility] Address [address] [place] [address] Care Team Providers Care Customer Engagement Representative Name Role Phone Elizabeth Benton Primary Care Physician [phone] Encounter [facility] Date(s): 10/06/22 - 10/06/22 [facility] [address] [place] [address] Encounter Diagnosis Elevated creatinine(Discharge Diagnosis) - 10/06/22 Type II diabets mellitus(Discharge Diagnosis) - 10/06/22 Discharge Disposition: Home or Self Care Attending [...] Future Scheduled Tests Laboratory* Creatinine 08/28/22 Radiology* MRI Spine Cervical w/o Contrast 01/19/22 [...] AT BEDTIME, # 90 tab,4 Refill(s), Pharmacy: [facility] #[id number] Start Date: 10/07/22 Status: Ordered Blood glucose test strips Blood glucose test strips, Test blood sugars 1x daily after largest meal, 2x daily if sick, for blood glucose levels, Supply, See instructions, # 1 EA, 3 Refill(s), Pharmacy: [facility] #[id number] Start Date: 10/06/22 Status: Ordered colchicine 0.6 mg oral capsule 0.6 mg = 1 cap, Oral, BID, # 30 cap, 0 Refill(s), Pharmacy: [facility] #[id number] Start Date: 08/12/22 Stop Date: 08/27/22 Status: Ordered Flovent HFA 44 mcg/inh inhalation aerosol INHALE 2 PUFFS BY MOUTH TWICE DAILY Start Date: 10/02/21 Status: Ordered glood glucose lancets glood glucose lancets, test 1x daily after biggest meal, and 2x if sick, Supply, See instructions, # 1 EA, 3 Refill(s), Pharmacy: [facility] #[id number] Start Date: 10/06/22 Status: Ordered Glucometer Glucometer, Test blood glucose 1x daily after largest meal, 2x daily if sick, Supply, See instructions, # 1 EA, 0 Refill(s), Pharmacy: [facility] #[id number] Start Date: 10/06/22 Status: Ordered LaMICtal 200 mg oral tablet 200 mg = 1 tab, Oral, Daily, take at bedtime, # 90 tab, 4 Refill(s), Pharmacy: [facility]#[id number] Start Date: 10/06/22 Stop Date: 12/30/23 Status: Ordered Narcan 4 mg/0.1 mL nasal spray INSTILL 1 SPRAY NEEDED INTO ONE SIDE OF NOSTRIL Start Date: 10/02/21 Status: Ordered ondansetron 4 mg oral tablet 4 mg = 1 tab, Oral, cap, 0 Refill(s) Start Date: 08/13/22 Status: Ordered oxyCODONE 10 mg oral tablet 10 mg = 1 tab, Oral, 5 times per day, # 140 tab, 0 Refill(s), Pharmacy: [facility] #[id number] Start Date: 10/06/22 Stop Date: 11/03/22 Status: Ordered oxyCODONE 10 mg oral tablet 10 mg = 1 tab, Oral, 5 times per day, # 140 tab, 0 Refill(s), Pharmacy: [facility] #[id number] Start Date: 10/06/22 Stop Date: 11/03/22 Status: Ordered oxyCODONE 10 mg oral tablet 10 mg = 1 tab, Oral, 5 times per day, # 140 tab, 0 Refill(s), Pharmacy: [facility] #[id number] Start Date: 10/06/22 Stop Date: 11/03/22 Status: Ordered pantoprazole 40 mg oral delayed release tablet 40 mg = 1 tab, Oral, Daily, # 90 tab, 4 Refill(s), Pharmacy: [facility] #[id number] Start Date: 10/07/22 Status: Ordered Potassium Chloride (Eqv-K-Tab) 20 mEq oral tablet, extended release 90 EA, TAKE 1 TABLET BY MOUTH DAILY, 0 Refill(s) Start Date: 10/06/22 Status: Ordered zolpidem 12.5 mg oral tablet, extended release 12.5 mg = 1 tab, Oral, every day at bedtime, PRN as needed for insomnia, # 30 tab, 5 Refill(s), Pharmacy: [facility] #[id number] Start Date: 10/06/22 Stop Date: 04/04/23 Status: [...] 2orthopedic surgery Results Laboratory List Name Date Comprehensive Metabolic Panel (CMP) 10/06 Thyroid Stimulating Hormone (TSH) 3 Most recent to oldest [Reference Range]: 1 BUN [7-18 mg/dL] 15 mg/dL (10/06/22 3:21 PM) Glucose Level [74-106 mg/dL] 149 mg/dL *HI* (10/06/22 3:21 PM) Potassium Level [3.5-5.1 mmol/L] 3.3 mmo l/L *LOW* (10/06/22 3:21 PM) AST [15-37 unit/L] 74 unit/L *HI* (10/06/22 3:21 PM) ALT [14-59 unit/L] 49 unit/L (10/06/22 3:21 PM) Sodium Level [136-145 mmol/L] 135 mmol/L *LOW* (10/06/22 3:21 PM) Calcium Level [8.5-10.1 mg/dL] 9.1 mg/dL (10/06/22 3:21 PM) Albumin Level [3.4-5.0 g/dL] 3.2 g/dL *LOW* (10/06/22 3:21 PM) Protein Total [6.4-8.2 g/dL] 7.5 g/dL (10/06/22 3:21 PM) Bilirubin Total [0.2-1.0 mg/dL] 0.2 mg/d L (10/06/22 3:21 PM) Alk Phos [46-146 unit/L] 118 unit/L (10/06/22 3:21 PM) CO2 [21-32 mmol/L] 26 mmol/L (10/06/22 3:21 PM) TSH [0.358-3.740 mcIntlUnit/mL] 0.643 mc IntlUnit/mL (10/06/22 3:21 PM) eGFR Non-AA [>=60] 57 *LOW* (10/06/22 3:21 PM) eGFR AA [>=60] 57 *LOW* (10/06/22 3:21 PM) Chloride Level [98-107 mmol/L] 99 mmol/L (10/06/22 3:21 PM) Creatinine Level [0.55-1.02 mg/dL] 1.20 mg/dL *HI* (10/06/22 3:21 PM) Social History Social History Type Response Tobacco Current everyday tob acco user Tobacco Use:. 1/2 to 1 pack per day per day. 25 year(s). Total pack years: 30. Sex Female Patient Care team information Care Team Personnel Name: Elizabeth Benton PA-C Position: Physician Member Role: Primary Care Physician Address: Address: [address] [place] [id number]
--- OUTSIDE RECORDS SUMMARY | 2023-08-30 21:06 | XMS_ITS | Continuity of Care Document ---
Author Name Unknown Organization [facility] Address [address] [place] [address] Care Team Providers Care Hospice Care Transitions Coordinator Name Role Phone Elizabeth Benton Primary Care Physician Encounter [facility] Date(s): 05/06/23 - 05/06/23 [facility] [address] [place] [address] Encounter Diagnosis Type 2 diabetes with nephropathy(Discharge Diagnosis) - 05/06/23 Gastritis(Discharge Diagnosis) - 05/06/23 Abdominal pain(Discharge Diagnosis) - 05/06/23 Discharge Disposition: Home or Self Care Attending [...] side effect Assessment and Plan Future Appointments Diagnostic Tests Pending * Hemoglobin A1c 05/06/23 Future Scheduled Tests Laboratory* Creatinine 08/28/22 Radiology* US Abdomen Limited 08/12/22 Immunizations Given and Recorded Vaccine Date Status Refusal Reason SARS-CoV-2 (COVID-19) mRNA-1273 vaccine 08/05/20 R ecorded SARS-CoV-2 (COVID-19) mRNA-1273 vaccine 07/08/20 R ecorded pneumococcal 23-polyvalent vaccine 1/1/17 Record ed tetanus/diphth/pertuss (Tdap) adult/adol 09/19/15 Recorded measles/mumps/rubella virus vaccine 03/09/00 Recor ded Medications amitriptyline 25 mg oral tablet 25 mg = 1 tab, Oral, every night at bedtime, TAKE 1 TABLET BY MOUTH EVERY DAY AT BEDTIME, # 90 tab,4 Refill(s), Pharmacy: [facility] #[id number] Start Date: 10/07/22 Status: Ordered Blood glucose test strips Blood glucose test strips, Test blood sugars 1x daily after largest meal, 2x daily if sick, for blood glucose levels, Supply, See instructions, # 1 EA, 3 Refill(s), Pharmacy: [facility] #[id number] Start Date: 10/06/22 Status: Ordered estradiol 1 mg oral tablet 0 Refill(s) Start Date: 02/16/23 Status: Ordered Flovent HFA 44 mcg/inh inhalation aerosol INHALE 2 PUFFS BY MOUTH TWICE DAILY Start Date: 10/02/21 Status: Ordered glood glucose lancets glood glucose lancets, test 1x daily after biggest meal, and 2x if sick, Supply, See instructions, # 1 EA, 3 Refill(s), Pharmacy: [facility] #[id number] Start Date: 10/06/22 Status: Ordered Glucometer Glucometer, Test blood glucose 1x daily after largest meal, 2x daily if sick, Supply, See instructions, # 1 EA, 0 Refill(s), Pharmacy: [facility] #[id number] Start Date: 10/06/22 Status: Ordered LaMICtal 200 mg oral tablet 200 mg = 1 tab, Oral, Daily, take at bedtime, # 90 tab, 4 Refill(s), Pharmacy: [facility]#[id number] Start Date: 10/06/22 Stop Date: 12/30/23 Status: Ordered Narcan 4 mg/0.1 mL nasal spray INSTILL 1 SPRAY NEEDED INTO ONE SIDE OF NOSTRIL Start Date: 10/02/21 Status: Ordered oxyCODONE 5 mg oral tablet 5 mg = 1 tab, Oral, 5 times per day, # 140 tab, 0 Refill(s), Pharmacy: [facility] #[id number],89.18, kg, 03/25/23 13:18:00 EST, Weight Dosing Start Date: 03/25/23 Stop Date: 04/22/23 Status: Ordered oxyCODONE 5 mg oral tablet 5 mg = 1 tab, Oral, 5 times per day, # 140 tab, 0 Refill(s), Pharmacy: [facility] #[id number],89.18, kg, 03/25/23 13:18:00 EST, Weight Dosing Start Date: 03/25/23 Stop Date: 04/22/23 Status: Ordered oxyCODONE 5 mg oral tablet 5 mg = 1 tab, Oral, 5 times per day, # 140 tab, 0 Refill(s), Pharmacy: [facility] #[id number],89.18, kg, 03/25/23 13:18:00 EST, Weight Dosing Start Date: 03/25/23 Stop Date: 04/22/23 Status: Ordered pantoprazole 40 mg oral delayed release tablet 40 mg = 1 tab, Oral, Daily, # 90 tab, 4 Refill(s), Pharmacy: [facility] #[id number] Start Date: 10/07/22 Status: Ordered Potassium Chloride (Eqv-K-Tab) 20 mEq oral tablet, extended release 90 EA, TAKE 1 TABLET BY MOUTH DAILY, 0 Refill(s) Start Date: 10/06/22 Status: Ordered zolpidem 12.5 mg oral tablet, extended release 12.5 mg = 1 tab, Oral, every day at bedtime, PRN as needed for insomnia, # 30 tab, 5 Refill(s), Pharmacy: [facility] #[id number], 88.8, kg, 04/23/23 15:16:00 EST, Weight Dosing Start Date: 04/23/23 Stop Date: 10/20/23 Status: Ordered Problem List Condition Confirmation Course [...] foot pain Confirmed Active Gastritis Confirmed Active Gastritis Confirmed Active Gastroesophageal reflux disease Confirmed 11/19/20 Active Gout Confirmed Active Long-term use of high-risk medication Confirmed Active H/O: urinary stone Confirmed Active History of umbilical hernia repair Confirmed Active Human papillomavirus deoxyribonucleic acid test positive, high risk on cervical specimen Confirmed Active Hydronephrosis Confirmed Active Hypertensive disorder Confirmed Active Hypertensive urgency Confirmed 08/17/19 Active Insomnia Confirmed 06/17/18 Active Insomnia Confirmed Active Irritable bowel syndrome with diarrhea Confirmed 06/06/20 Active Kidney stone Confirmed Active Knee pain Confirmed Active Ovarian cancer in remission Confirmed Active Medication monitoring Confirmed 02/11/18 Active [...] 2orthopedic surgery Results Laboratory List Name Date Automated Diff 05/06/23 CBC w/ Diff 05/06/23 Comprehensive Metabolic Panel 05/06/23 Thyroid Stimulating Hormone (TSH) 4 Microalbumin/Creatinine Ratio Urine 05/06 Most recent to oldest [Reference Range]: 1 WBC [5.0-10.0 x10^3/mcL] 10.2 x10^3/mcL *HI* (05/06/23 3:04 PM) RBC [4.1-5.3 x10^6/mcL] 4.6 x10^6/mcL (05/06/23 3:04 PM) Neutro Auto [40.0-75.0 %] 57.8 % (05/06/23 3:04 PM) Lymph Auto [20.0-50.0 %] 32.0 % (05/06/23 3:04 PM) Whitley Auto [2.0-15.0 %] 6.0 % (05/06/23 3:04 PM) Basophil Auto [0.0-1.0 %] 0.7 % (05/06/23 3:04 PM) BUN [7-18 mg/dL] 18 mg/dL (05/06/23 3:04 PM) Glucose Level [74-106 mg/dL] 119 mg/dL 1 *HI* (05/06/23 3:04 PM) Potassium Level [3.5-5.1 mmol/L] 3.6 mmo l/L (05/06/23 3:04 PM) MCV [80.0-96.0 fL] 91.7 fL (05/06/23 3:04 PM) AST [15-37 unit/L] 30 unit/L (05/06/23 3:04 PM) ALT [14-59 unit/L] 54 unit/L (05/06/23 3:04 PM) MCHC [31.0-35.0 g/dL] 32.9 g/dL (05/06/23 3:04 PM) Sodium Level [136-145 mmol/L] 142 mmol/L (05/06/23 3:04 PM) Hct [37.0-47.0 %] 42.0 % (05/06/23 3:04 PM) Calcium Level [8.5-10.1 mg/dL] 9.6 mg/dL (05/06/23 3:04 PM) Albumin Level [3.4-5.0 g/dL] 3.6 g/dL (05/06/23 3:04 PM) Protein Total [6.4-8.2 g/dL] 7.8 g/dL (05/06/23 3:04 PM) MCH [26.0-32.0 pg] 30.1 pg (05/06/23 3:04 PM) Neutro Absolute 5.9 x10^3/mcL *NA* (05/06/23 3:04 PM) Bilirubin Total [0.2-1.0 mg/dL] 0.3 mg/d L (05/06/23 3:04 PM) Hgb [12.0-16.0 g/dL] 13.8 g/dL (05/06/23 3:04 PM) Alk Phos [46-146 unit/L] 152 unit/L *HI* (05/06/23 3:04 PM) Platelets [130-450 x10^3/mcL] 307 x10^3/ mcL (05/06/23 3:04 PM) CO2 [21-32 mmol/L] 25 mmol/L (05/06/23 3:04 PM) TSH [0.358-3.740 mcIntlUnit/mL] 1.691 mc IntlUnit/mL (05/06/23 3:04 PM) eGFR Non-AA [>=60] 62 (05/06/23 3:04 PM) eGFR AA [>=60] 62 (05/06/23 3:04 PM) U Creatinine 204 mg/dL *NA* (05/06/23 11:49 AM) Chloride Level [98-107 mmol/L] 105 mmol/ L (05/06/23 3:04 PM) RDW-CV [11.5-14.5 %] 13.4 % (05/06/23 3:04 PM) U Microalb/Creat [0.0-30.0 mcg/mg] 65.5 mcg/mg *HI* (05/06/23 11:49 AM) U Microalb [0.0-20.0] 133.6 *HI* (05/06/23 11:49 AM) Imm Gran Auto [0.0-0.9 %] 0.2 % (05/06/23 3:04 PM) Creatinine Level [0.55-1.02 mg/dL] 1.12 mg/dL *HI* (05/06/23 3:04 PM) Eos, Auto [1.0-6.0 %] 3.3 % (05/06/23 3:04 PM) 1Result Comment: Sample appears lipemic, results may be affected Social History Social History Type Response Tobacco Current everyday tob acco user Tobacco Use:. 1/2 to 1 pack per day per day. 25 year(s). Total pack years: 30. Sex Female Patient Care team information Care Team Personnel Name: Elizabeth Benton PA-C Position: Physician Member Role: Primary Care Physician Address: Address: [address] [place] [phone]
--- OUTSIDE RECORDS SUMMARY | 2023-08-30 21:06 | XMS_ITS | Continuity of Care Document ---
Author Name Unknown Organization [facility] Address [address] [place] [id number] Care Team Providers Care Attorney Name Role Phone ASIYA HUYNH Primary Care Physician Encounter LTTL_KS FIN NBR [id number] Date(s): 04/27/23 - 04/27/[address] [id number] Encounter Diagnosis Gastritis(Discharge Diagnosis) - 04/27/23 Discharge Disposition: Home f/u Internal Provider Attending Physician: Treva Che MD Admitting Physician: Treva Che MD Allergies, Adverse Reactions, Alerts Substance Reaction Severity Status codeine Unknown Unknown Active ibuprofen Unknown Unknown Active morphine Unknown Unknown Active Adhesive Bandage Unknown Unknown Active traMADol Unknown Unknown Active Assessment and Plan Extracted from: Title:ED Provider Note Author:Karla Fox Date:04/27/23 Assessment/Plan 1.??Gastritis??K29.70 Patient will need to follow-up with Dr. Lugo in the GI service. ??I believe she??has gastritis and is??potential that she has an H. pylori infection however we will??try her on Carafate to start and see if this needs to be reevaluated. ??Patient understands all aspects of today's visit agrees with discharge plan and will contact appropriate providers. Ordered: sucralfate 1 g oral tablet, 1 g = 1 tab, Oral, QID, # 120 tab, 0 Refill(s), 05/07/23 21:39:00 EST, Pharmacy: [facility] #[id number], 170.18, cm, 04/27/23 19:42:00 EST, Height, 88.45, kg, 04/27/23 19:55:00 EST, Weight Dosing ?? Orders: sucralfate, 1 g = 1 tab, Oral, Tab, Once, First Dose: 04/27/23 22:00:00 EST, Stop Date: 04/27/23 22:00:00 EST, Physician Stop, Routine sucralfate, 1 g = 1 tab, Oral, Tab, Once, First Dose: 04/27/23 22:00:00 EST, Stop Date: 04/27/23 22:00:00 EST, Physician Stop, Routine Discharge Patient, 04/27/23 21:37:00 EST, Home Independently Patient Education Gastritis, Adult Follow Up With When Contact Information Eduin Urena MD Within 1 to [address] [place] [phone] ?? Additional Instructions: Follow-up with the provider above. ??You will need an office visit and then??most likely an upper endoscopy. ?? Remain on your pantoprazole at 40 mg daily Carafate as prescribed If you have any new or worsening symptoms you may return however seeing GI is your next most appropriate step.?? Limit your oral intake to??things that are known to be not irritative. If you have any new or worsening symptoms follow-up with your primary care or return. ? Follow-up with your primary care Within 1 week Additional Instructions: Follow-up with your primary care as needed, they will be able to reevaluate if necessary Return to ED if concerns ?? Medications amitriptyline 25 mg oral tablet 50 mg = 2 tab, Oral, every night at bedtime, # 60 tab, 0 Refill(s) Start Date: 04/27/23 Status: Ordered estradiol 1 mg oral tablet 1 mg = 1 tab, Oral, Daily, # 90 tab, 0 Refill(s) Start Date: 04/27/23 Status: Ordered lamoTRIgine 200 mg oral tablet 200 mg = 1 tab, Oral, Daily, # 60 tab, 0 Refill(s) Start Date: 04/27/23 Status: Ordered oxyCODONE 5 mg oral capsule 5 mg = 1 cap, Oral, every 6 hr, PRN as needed for pain, 0 Refill(s) Start Date: 04/27/23 Status: Ordered pantoprazole 40 mg oral delayed release tablet 40 mg = 1 tab, Oral, Daily, # 30 tab, 0 Refill(s) Start Date: 04/27/23 Status: Ordered potassium chloride 20 mEq oral tablet, extended release 20 mEq = 1 tab, Oral, Daily, # 30 tab, 0 Refill(s) Start Date: 04/27/23 Status: Ordered sucralfate 1 g oral tablet 1 g = 1 tab, Oral, QID, # 120 tab, 0 Refill(s), 05/07/23 8:39:00 PM WET END TESTER, Pharmacy: [facility] #[id number], 170.18, cm, 04/27/23 19:42:00 EST, Height, 88.45, kg, 04/27/23 19:55:00 EST, Weight Dosing Start Date: 04/27/23 Stop Date: 05/07/23 Status: Ordered zolpidem 12.5 mg =, Oral, every night at bedtime, 0 Refill(s) Start Date: 04/27/23 Status: Ordered Mental Status 04/27/23 Eye Opening Response [place] Spontaneous ly Best Verbal Response Sophie Oriented Best Motor Response [place] Obeys comman ds Sophie Coma Score 15 Results Laboratory List Name Date CBC w/ Diff 04/27/23 Comprehensive Metabolic Panel (CMP) 04/27 Lactic Acid 04/27/23 Lipase Level 04/27/23 Magnesium Level 04/27/23 Urinalysis with Micro if Indicated and C ulture if Indicated 04/27/23 Automated Diff 04/27/23 Most recent to oldest [Reference Range]: 1 WBC [4.8-10.8 K/mcL] 10.0 K/mcL (04/27/23 8:37 PM) RBC [4.20-5.40 Million/mcL] 4.65 Million /mcL (04/27/23 8:37 PM) Neutro Auto [42.2-75.2 %] 62.3 % (04/27/23 8:37 PM) Lymph Auto [20.5-51.1 %] 27.1 % (04/27/23 8:37 PM) Bay Auto [1.7-9.3 %] 6.5 % (04/27/23 8:37 PM) Basophil Auto [0.0-0.8 %] 0.9 % *HI* (04/27/23 8:37 PM) BUN [7-25 mg/dL] 20 mg/dL (04/27/23 8:37 PM) UA Color [Yellow] Yellow (04/27/23 8:37 PM) Glucose Level [70-109 mg/dL] 193 mg/dL *HI* (04/27/23 8:37 PM) Potassium Level [3.5-5.1 mmol/L] 4.1 mmo l/L (04/27/23 8:37 PM) Baso Absolute [0.0-0.2 K/mcL] 0.1 K/mcL (04/27/23 8:37 PM) MCV [81.0-99.0 fL] 90.6 fL (04/27/23 8:37 PM) UA Urobilinogen [0.2] 0.2 (04/27/23 8:37 PM) UA Bili [Negative] Negative (04/27/23 8:37 PM) UA Ketones [Negative] Negative (04/27/23 8:37 PM) AST [13-39 IntlUnit/L] 38 IntlUnit/L (04/27/23 8:37 PM) ALT [7-52 IntlUnit/L] 28 IntlUnit/L (04/27/23 8:37 PM) MCHC [32.0-37.0 g/dL] 33.7 g/dL (04/27/23 8:37 PM) Osmolality [275-295 mOsm/kg] 282 mOsm/kg (04/27/23 8:37 PM) Sodium Level [136-145 mmol/L] 137 mmol/L (04/27/23 8:37 PM) UA Leuk Est [Negative] Negative (04/27/23 8:37 PM) Lymph Absolute [1.2-3.4 K/mcL] 2.7 K/mcL (04/27/23 8:37 PM) UA Nitrite [Negative] Negative (04/27/23 8:37 PM) UA Glucose [Negative] Negative (04/27/23 8:37 PM) Hct [37.0-47.0 %] 42.2 % (04/27/23 8:37 PM) Lipase Level [11-82 unit/L] 42 unit/L 1 (04/27/23 8:37 PM) Calcium Level [8.6-10.3 mg/dL] 9.9 mg/dL (04/27/23 8:37 PM) Bay Absolute [0.1-0.6 K/mcL] 0.7 K/mcL *HI* (04/27/23 8:37 PM) Albumin Level [3.5-5.7 g/dL] 4.3 g/dL (04/27/23 8:37 PM) Protein Total [6.4-8.9 g/dL] 7.6 g/dL (04/27/23 8:37 PM) UA Protein [Negative] 30 *ABN* (04/27/23 8:37 PM) MCH [27.0-31.0 pg] 30.5 pg (04/27/23 8:37 PM) Magnesium Level [1.9-2.7 mg/dL] 1.8 mg/d L *LOW* (04/27/23 8:37 PM) Neutro Absolute [1.4-6.5 K/mcL] 6.2 K/mc L (04/27/23 8:37 PM) Bilirubin Total [0.3-1.0 mg/dL] 0.4 mg/d L (04/27/23 8:37 PM) Hgb [12.0-16.0 g/dL] 14.2 g/dL (04/27/23 8:37 PM) Alk Phos [34-104 IntlUnit/L] 130 IntlUni t/L *HI* (04/27/23 8:37 PM) UA Blood [Negative] Negative (04/27/23 8:37 PM) MPV [7.4-10.4 fL] 8.4 fL (04/27/23 8:37 PM) UA Spec Grav [1.001-1.030] 1.025 (04/27/23 8:37 PM) Platelets [130-400 K/mcL] 315 K/mcL (04/27/23 8:37 PM) CO2 [21-31 mmol/L] 25 mmol/L (04/27/23 8:37 PM) Eos Absolute [0.0-0.2 K/mcL] 0.3 K/mcL *HI* (04/27/23 8:37 PM) Lactic Acid Lvl [0.5-2.2 mmol/L] 2.3 mmo l/L *HI* (04/27/23 8:37 PM) UA pH [5.00-9.00] 6.00 (04/27/23 8:37 PM) UA Appear [Clear] Slightly Cloudy *ABN* (04/27/23 8:37 PM) Chloride Level [98-107 mmol/L] 100 mmol/ L (04/27/23 8:37 PM) RDW-CV [11.5-14.5 %] 14.2 % (04/27/23 8:37 PM) A/G Ratio [1.0-2.5 g/dL] 1.3 g/dL (04/27/23 8:37 PM) BUN/Creat Ratio [8.0-20.0] 16.7 (04/27/23 8:37 PM) Globulin [2.3-3.5 g/dL] 3.3 g/dL (04/27/23 8:37 PM) Creatinine Level [0.60-1.20 mg/dL] 1.20 mg/dL (04/27/23 8:37 PM) Anion Gap [3.0-12.0] 12.0 (04/27/23 8:37 PM) Eos, Auto [0.00-3.00 %] 3.20 % *HI* (04/27/23 8:37 PM) eGFR CKD-EPI [>=60 mL/min/1.73 m2] 57 mL /min/1.73 m2 *LOW* (04/27/23 8:37 PM) 1Interpretive Data: X-phcxwr-g-benzoquinone imine (meabolite of Acetaminophen) will generate erroneously low lipase results in samples for patients that have taken toxic doses of acetaminophen. Vital Signs Most recent to oldest [Reference Range]: 1 2 Temperature Temporal Artery [36-38 Deg C ] 36.5 Deg C (04/27/23 7:39 PM) Peripheral Pulse Rate [60-100 bpm] 90 bp m (04/27/23 9:38 PM) 105 bpm *HI* (04/27/23 7:39 PM) Respiratory Rate [12-24 br/min] 16 br/mi n (04/27/23 9:38 PM) 18 br/min (04/27/23 7:39 PM) Blood Pressure [90-140/60-90 mmHg] 156/1 12mmHg *HI* (04/27/23 9:38 PM) 169/132mmHg *HI* (04/27/23 7:39 PM) Mean Arterial Pressure, Cuff [65-140 mmH g] 127 mmHg (04/27/23 9:38 PM) 144 mmHg *HI* (04/27/23 7:39 PM) Weight 88.45 kg (04/27/23 7:39 PM) Weight Dosing 88.450 kg (04/27/23 7:39 PM) Height 170.18 cm (04/27/23 7:39 PM) Body Mass Index 30.54 kg/m2 (04/27/23 7:39 PM) Social History Social History Type Response Tobacco Current everyday tob acco user Tobacco Use:. Sex Hospital Discharge Instructions Patient Education 04/27/2023 20:39:40 Gastritis, Adult Gastritis, Adult Gastritis is inflammation of the stomach. There are two kinds of gastritis: ??? Acute gastritis. This kind develops suddenly. ??? Chronic gastritis. This kind is much more common. It develops slowly and lasts for a long time. Gastritis happens when the lining of the stomach becomes weak or gets damaged. Without treatment, gastritis can lead to stomach bleeding and ulcers. What are the causes? This condition may be caused by: ??? An infection. ??? Drinking too much alcohol. ??? Certain medicines. These include steroids, antibiotics, and some otbe-fmh-ubpmtod medicines, such as aspirin or ibuprofen. ??? Having too much acid in the stomach. ??? Having a disease of the stomach. Other causes may include: ??? An allergic reaction. ??? Some cancer treatments (radiation). ??? Smoking cigarettes or the use of products that contain nicotine or tobacco. In some cases, the cause of this condition is not known. What increases the risk? Having a disease of the intestines. ??? Having a disease in which the body's immune system attacks the body (autoimmune disease), such as Crohn's disease. ??? Using aspirin or ibuprofen and other NSAIDs to treat other conditions, such as heart disease orchronic pain. ??? Stress. What are the signs or symptoms? Symptoms of this condition include: ??? Pain or a burning sensation in the upper abdomen. ??? Nausea. ??? Vomiting. ??? An uncomfortable feeling of fullness after eating. ??? Weight loss. ??? Bad breath. ??? Blood in your vomit or stool (feces). In some cases, there are no symptoms. How is this diagnosed? This condition may be diagnosed based on your medical history, a physical exam, and tests. Tests may include: ??? Your medical history and a description of your symptoms. ??? A physical exam. ??? Tests. These can include: ??? Blood tests. ??? Stool tests. ??? A test in which a thin, flexible instrument with a light and a camera is passed down the esophagus and into the stomach (upper endoscopy). ??? A test in which a tissue sample is removed to look at it under a microscope (biopsy). How is this treated? This condition may be treated with medicines. The medicines that are used vary depending on the cause of the gastritis. ??? If the condition is caused by a bacterial infection, you may be given antibiotic medicines. ??? If the condition is caused by too much acid in the stomach, you may be given medicines called H2 blockers, proton pump inhibitors, or antacids. Treatment may also involve stopping the use of certain medicines such as aspirin or ibuprofen and other NSAIDs. Follow these instructions at home: Medicines ??? Take unub-vzt-klgeljd and prescription medicines only as told by your health care provider. ??? If you were prescribed an antibiotic medicine, take it as told by your health care provider. Donot stop taking the antibiotic even if you start to feel better. Alcohol use ??? Do not drink alcohol if: ??? Your health care provider tells you not to drink. ??? You are , may be , or are planning to become . ??? If you drink alcohol: ??? Limit your use to: ??? 0???1 drink a day for women. ??? 0???2 drinks a day for men. ??? Know how much alcohol is in your drink. In the [place] one drink equals one 12 oz bottle of beer (355 mL), one 5 oz glass of wine (148 mL), or one 1?? oz glass of hard liquor (44 mL). General instructions ??? Eat small, frequent meals instead of large meals. ??? Avoid foods and drinks that make your symptoms worse. ??? Talk with your health care provider about ways to manage stress, such as getting regular exercise or practicing deep breathing, meditation, or yoga. ??? Do not use any products that contain nicotine or tobacco. These products include cigarettes, chewing tobacco, and vaping devices, such as e-cigarettes. If you need help quitting, ask your health care provider. ??? Drink enough fluid to keep your urine pale yellow. ??? Keep all follow-up visits. This is important. Contact a health care provider if: ??? Your symptoms get worse. ??? Your abdominal pain gets worse. ??? Your symptoms return after treatment. ??? You have a fever. Get help right away if: ??? You vomit blood or a substance that looks like coffee grounds. ??? You have black or dark red stools. ??? You are unable to keep fluids down. These symptoms may represent a serious problem that is an emergency. Do not wait to see if the symptoms will go away. Get medical help right away. Call your local emergency services (911 in the [place] Do not drive yourself to the hospital. Summary ??? Gastritis is inflammation of the lining of the stomach that can occur suddenly (acute) or develop slowly over time (chronic). ??? This condition is diagnosed with a medical history, a physical exam, or tests. ??? This condition may be treated with medicines to treat infection or medicines to reduce the amount of acid in your stomach. ??? Follow your health care provider's instructions about taking medicines, making changes to your diet, and knowing when to call for help. This information is not intended to replace advice given to you by your health care provider. Make sure you discuss any questions you have with your health care provider. Document Revised: 06/29/2021 Document Reviewed: 06/29/2021 [employer] Patient Education ?? 2022 [employer] Follow Up Care 04/27/2023 19:39:08 With:Eduin Urena MD Address: [address] [place] [phone]- When:1 to 2 weeks Comments:Follow-up with the provider above. ??You will need an office visit and then??most likely an upper endoscopy.Remain on your pantoprazole at 40 mg dailyCarafate as prescribedIf you have any new or worsening symptoms you may return however seeing GI is your next most appropriate step.?? Limit your oral intake to??things that are known to be not irritative.If you have any new or worsening symptoms follow-up with your primary care or return. With:Follow-up with your primary care Address: When:1 week Comments:Follow-up with your primary care as needed, they will be able to reevaluate if necessaryReturn to ED if concerns Physician Emergency department Note * JO Fox: PERFORM Event Display: ED Note Physician Authored Date: [id number] MINDY CODY :1980 Age:43 years Sex:Female Visit Date:04/27/2023 Primary Care Physician: ASIYA HUYNH Basic Information Time Seen: JO Fox / 04/27/2023 19:45 Chief Complaint Patient reports chronic mid abdominal pain, epigastric to lower mid abdomen x 45 days. Has been seen three times for these symptoms, at [facility] on the . History Of Present Illness: Patient is a 43-year-old female presents emergency department??with abdominal pain in the epigastric region that has been present for??approximately 1 and half months. ??She notes that??this pain waxes and wanes and when it does occur it is intense. ??She is nauseous??but has not been vomiting. At this time she presents??with worsening pain??that is unrelenting. ??Patient at this time??has been seen at [facility] several times where she has had multiple CT scans, blood work and??has a referral to general surgery??but has not heard back from them yet. Patient does take pantoprazole on a daily basis but notes no change since starting this medication. Patient does have a correlation with her pain worsening with eating??and is without gallbladder, appendix and??has both??hysterectomy and??ovarian??removal. She has had no fevers during this timeframe is having normal bowel movements and is urinating normally. Review of Systems: See HPI for details otherwise negative Physical Exam Vitals & Measurements T:??36.5?C ??(Temporal Artery)?? HR:??90??(Peripheral)?? RR:??16?? BP:??156/112?? SpO2:??98%?? HT:??170.18??cm?? WT:??88.45??kg?? BMI:??30.54?? Pain Score:??8?? O2 Therapy:??Room air?? Patient alert oriented age-appropriate well-nourished nontoxic Normocephalic atraumatic Neck supple nontender EOM intact, PERRLA, sclera nonicteric Clear to auscultation bilaterally Regular rate and rhythm no murmurs Abdominal exam reveals normal bowel sounds, negative rebound tenderness, negative psoas sign, significant epigastric tenderness upon palpation, resonant to percussion Appropriate mood and affect Medical Decision Making: I do not feel that repeat CT scan was necessary as patient is having consistent pain??as a negativeCT in the past. ??She does have epigastric tenderness and therefore lab work is obtained. ??It is ultimately unremarkable.?? Patient is given a GI cocktail while here in the emergency department and goes from a 10 out of 10 to a 2 out of 10 and is significantly relieved.?? She will be discharged asbelow Procedure No Qualifying Data Assessment/Plan 1.??Gastritis??K29.70 Patient will need to follow-up with Dr. Lugo in the GI service. ??I believe she??has gastritis and is??potential that she has an H. pylori infection however we will??try her on Carafate to start and see if this needs to be reevaluated. ??Patient understands all aspects of today's visit agrees with discharge plan and will contact appropriate providers. Ordered: sucralfate 1 g oral tablet, 1 g = 1 tab, Oral, QID, # 120 tab, 0 Refill(s), 05/07/23 21:39:00 EST, Pharmacy: [facility] #[id number], 170.18, cm, 04/27/23 19:42:00 EST, Height, 88.45, kg, 04/27/23 19:55:00 EST, Weight Dosing ?? Orders: sucralfate, 1 g = 1 tab, Oral, Tab, Once, First Dose: 04/27/23 22:00:00 EST, Stop Date: 04/27/23 22:00:00 EST, Physician Stop, Routine sucralfate, 1 g = 1 tab, Oral, Tab, Once, First Dose: 04/27/23 22:00:00 EST, Stop Date: 04/27/23 22:00:00 EST, Physician Stop, Routine Discharge Patient, 04/27/23 21:37:00 EST, Home Independently Patient Education Gastritis, Adult Follow Up With When Contact Information Eduin Urena MD Within 1 to [address] [place] [phone] Additional Instructions: Follow-up with the provider above. ??You will need an office visit and then??most likely an upper endoscopy. ?? Remain on your pantoprazole at 40 mg daily Carafate as prescribed If you have any new or worsening symptoms you may return however seeing GI is your next most appropriate step.?? Limit your oral intake to??things that are known to be not irritative. If you have any new or worsening symptoms follow-up with your primary care or return. Follow-up with your primary care Within 1 week Additional Instructions: Follow-up with your primary care as needed, they will be able to reevaluate if necessary Return to ED if concerns Medication Reconciliation New Prescription sucralfate (sucralfate 1 g oral tablet)1 tab Oral (given by mouth) 4 times a day. Refills: 0. ?? Unchanged amitriptyline (amitriptyline 25 mg oral tablet)2 tab Oral (given by mouth) every night at bedtime. ?? estradiol (estradiol 1 mg oral tablet)1 tab Oral (given by mouth) every day. ?? lamoTRIgine (lamoTRIgine 200 mg oral tablet)1 tab Oral (given by mouth) every day. ?? oxyCODONE (oxyCODONE 5 mg oral capsule)1 Capsules Oral (given by mouth) every 6 hours as needed as needed for pain. ?? pantoprazole (pantoprazole 40 mg oral delayed release tablet)1 tab Oral (given by mouth) every day. ?? potassium chloride (potassium chloride 20 mEq oral tablet, extended release)1 tab Oral (given by mouth) every day. ?? [id number] Milligrams Oral (given by mouth) every night at bedtime. Problem List/Past Medical History Ongoing Tobacco user Historical No qualifying data Medication Administration Given Al hydroxide/Mg hydroxide/simethicone, 30 mL, Oral Lidocaine Viscous, 15 mL, Oral ondansetron, 4 mg, IV Push Allergies Adhesive Bandage??(Unknown) codeine??(Unknown) ibuprofen??(Unknown) morphine??(Unknown) traMADol??(Unknown) Social History Electronic Cigarette/Vaping Electronic Cigarette Use: Never. Tobacco Current everyday tobacco user Tobacco Use:. Lab Results CBC and Differential?? LATEST RESULTS?? WBC?? 04/27/23 20:37?? 10.0?? RBC?? 04/27/23 20:37?? 4.65?? Hgb?? 04/27/23 20:37?? 14.2?? Hct?? 04/27/23 20:37?? 42.2?? MCV?? 04/27/23 20:37?? 90.6?? MCH?? 04/27/23 20:37?? 30.5?? MCHC?? 04/27/23 20:37?? 33.7?? RDW-CV?? 04/27/23 20:37?? 14.2?? Platelets?? 04/27/23 20:37?? 315?? MPV?? 04/27/23 20:37?? 8.4?? Neutro Auto?? 04/27/23 20:37?? 62.3?? Lymph Auto?? 04/27/23 20:37?? 27.1?? Bay Auto?? 04/27/23 20:37?? 6.5?? Eos, Auto?? 04/27/23 20:37?? 3.20 ??High?? Basophil Auto?? 04/27/23 20:37?? 0.9 ??High?? Neutro Absolute?? 04/27/23 20:37?? 6.2?? Lymph Absolute?? 04/27/23 20:37?? 2.7?? Bay Absolute?? 04/27/23 20:37?? 0.7 ??High?? Eos Absolute?? 04/27/23 20:37?? 0.3 ??High?? Baso Absolute?? 04/27/23 20:37?? 0.1? Routine Chemistry?? LATEST RESULTS?? Sodium Level?? 04/27/23 20:37?? 137?? Potassium Level?? 04/27/23 20:37?? 4.1?? Chloride Level?? 04/27/23 20:37?? 100?? CO2?? 04/27/23 20:37?? 25?? Alk Phos?? 04/27/23 20:37?? 130 ??High?? AST?? 04/27/23 20:37?? 38?? ALT?? 04/27/23 20:37?? 28?? BUN?? 04/27/23 20:37?? 20?? Glucose Level?? 04/27/23 20:37?? 193 ??High?? Creatinine Level?? 04/27/23 20:37?? 1.20?? BUN/Creat Ratio?? 04/27/23 20:37?? 16.7?? eGFR CKD-EPI?? 04/27/23 20:37?? 57 ??Low?? Calcium Level?? 04/27/23 20:37?? 9.9?? Protein Total?? 04/27/23 20:37?? 7.6?? Albumin Level?? 04/27/23 20:37?? 4.3?? Globulin?? 04/27/23 20:37?? 3.3?? A/G Ratio?? 04/27/23 20:37?? 1.3?? Bilirubin Total?? 04/27/23 20:37?? 0.4?? Anion Gap?? 04/27/23 20:37?? 12.0?? Lactic Acid Lvl?? 04/27/23 20:37?? 2.3 ??High?? Lipase Level?? 04/27/23 20:37?? 42?? Magnesium Level?? 04/27/23 20:37?? 1.8 ??Low?? Osmolality?? 04/27/23 20:37?? 282? UA Macroscopic?? LATEST RESULTS?? UA Color?? 04/27/23 20:37?? Yellow?? UA Appear?? 04/27/23 20:37?? Slightly Cloudy Abnormal?? UA Glucose?? 04/27/23 20:37?? Negative?? UA Bili?? 04/27/23 20:37?? Negative?? UA Ketones?? 04/27/23 20:37?? Negative?? UA Spec Grav?? 04/27/23 20:37?? 1.025?? UA Blood?? 04/27/23 20:37?? Negative?? UA pH?? 04/27/23 20:37?? 6.00?? UA Protein?? 04/27/23 20:37?? 30 Abnormal?? UA Urobilinogen?? 04/27/23 20:37?? 0.2?? UA Nitrite?? 04/27/23 20:37?? Negative?? UA Leuk Est?? 04/27/23 20:37?? Negative? Electronically Signed on 04/27/23 09:43 PM JO Fox Emergency department Discharge instructions * JO Fox: PERFORM Event Display: ED Discharge Information Authored Date: [id number] MINDY CODY :1980 Age:43 years Sex:Female Visit Date:04/27/2023 Primary Care Physician: ASIYA HUYNH Discharge Instructions We would like to thank you for allowing us to assist you with your healthcare needs. The following includes patient education materials and information regarding your injury/illness. Diagnosis from Today's Visit Gastritis Discharge Vitals Temperature??(Temporal Artery) 97.7 ??F (36.5 ??C) Heart Rate??(Peripheral) 90 Respiratory Rate?? 16 Blood Pressure?? 156/112?? Height?? 67.00 in (170.18 cm) Weight?? 195.03 lb (88.45 kg) BMI?? 30.54 Allergies Adhesive Bandage??(Unknown) codeine??(Unknown) ibuprofen??(Unknown) morphine??(Unknown) traMADol??(Unknown) What to Do Next You Need to Schedule the Following Appointments Follow Up with??Eduin Urena MD When:??Within 1 to 2 weeks Why: Follow-up with the provider above. ??You will need an office visit and then??most likely an upper endoscopy. ?? Remain on your pantoprazole at 40 mg daily Carafate as prescribed If you have any new or worsening symptoms you may return however seeing GI is your next most appropriate step.?? Limit your oral intake to??things that are known to be not irritative. If you have any new or worsening symptoms follow-up with your primary care or return. Where: [address] [place] [phone]- Follow Up with??Follow-up with your primary care When:??Within 1 week Why: Follow-up with your primary care as needed, they will be able to reevaluate if necessary Return to ED if concerns You were treated today on an emergency basis; it may be zhang to contact your primary care provider to notify them of your visit today. You may have been referred to your regular doctor or a specialist, please follow up as instructed. If your condition worsens or you can't get in to see the doctor, contact the Emergency Department. Medications What How Much When Why Instructions Next Dose New sucralfate (sucralfate 1 g oral tablet) 1 tab Oral (given by mouth) 4 times a day Gastritis Pickup at [facility] #[id number] Unchanged amitriptyline (amitriptyline 25 mg oral tablet) 2 tab Oral (given by mouth) Every night at bedtime Unchanged estradiol (estradiol 1 mg oral tablet) 1 tab Oral (given by mouth) Every day Unchanged lamoTRIgine (lamoTRIgine 200 mg oral tablet) 1 tab Oral (given by mouth) Every day Unchanged oxyCODONE (oxyCODONE 5 mg oral capsule) 1 Capsules Oral (given by mouth) Every 6 hours as needed for as needed for pain Unchanged pantoprazole (pantoprazole 40 mg oral delayed release tablet) 1 tab Oral (given by mouth) Every day Unchanged potassium chloride (potassium chloride 20 mEq oral tablet, extended release) 1 tab Oral (given by mouth) Every day Unchanged zolpidem 12.5 Milligrams Oral (given by mouth) Every night at bedtime Pharmacy Information [facility] #[id number]: [address], [place] [phone] Education Materials Gastritis, Adult Gastritis is inflammation of the stomach. There are two kinds of gastritis: ? Acute gastritis. This kind develops suddenly. ? Chronic gastritis. This kind is much more common. It develops slowly and lasts for a long time. Gastritis happens when the lining of the stomach becomes weak or gets damaged. Without treatment, gastritis can lead to stomach bleeding and ulcers. What are the causes? This condition may be caused by: ? An infection. ? Drinking too much alcohol. ? Certain medicines. These include steroids, antibiotics, and some ktej-txc-czirxnm medicines, such as aspirin or ibuprofen. ? Having too much acid in the stomach. ? Having a disease of the stomach. Other causes may include: ? An allergic reaction. ? Some cancer treatments (radiation). ? Smoking cigarettes or the use of products that contain nicotine or tobacco. In some cases, the cause of this condition is not known. What increases the risk? Having a disease of the intestines. ? Having a disease in which the body's immune system attacks the body (autoimmune disease), such as Crohn's disease. ? Using aspirin or ibuprofen and other NSAIDs to treat other conditions, such as heart disease or chronic pain. ? Stress. What are the signs or symptoms? Symptoms of this condition include: ? Pain or a burning sensation in the upper abdomen. ? Nausea. ? Vomiting. ? An uncomfortable feeling of fullness after eating. ? Weight loss. ? Bad breath. ? Blood in your vomit or stool (feces). In some cases, there are no symptoms. How is this diagnosed? This condition may be diagnosed based on your medical history, a physical exam, and tests. Tests may include: ? Your medical history and a description of your symptoms. ? A physical exam. ? Tests. These can include: ? Blood tests. ? Stool tests. ? A test in which a thin, flexible instrument with a light and a camera is passed down the esophagus and into the stomach (upper endoscopy). ? A test in which a tissue sample is removed to look at it under a microscope (biopsy). How is this treated? This condition may be treated with medicines. The medicines that are used vary depending on the cause of the gastritis. ? If the condition is caused by a bacterial infection, you may be given antibiotic medicines. ? If the condition is caused by too much acid in the stomach, you may be given medicines called H2 blockers, proton pump inhibitors, or antacids. Treatment may also involve stopping the use of certain medicines such as aspirin or ibuprofen and other NSAIDs. Follow these instructions at home: Medicines ? Take adxt-rkm-vflqkzd and prescription medicines only as told by your health care provider. ? If you were prescribed an antibiotic medicine, take it as told by your health care provider. Do notstop taking the antibiotic even if you start to feel better. Alcohol use ? Do not drink alcohol if: ? Your health care provider tells you not to drink. ? You are , may be , or are planning to become . ? If you drink alcohol: ? Limit your use to: ? 0???1 drink a day for women. ? 0???2 drinks a day for men. ? Know how much alcohol is in your drink. In the [place] one drink equals one 12 oz bottle of beer (355mL), one 5 oz glass of wine (148 mL), or one 1?? oz glass of hard liquor (44 mL). General instructions ? Eat small, frequent meals instead of large meals. ? Avoid foods and drinks that make your symptoms worse. ? Talk with your health care provider about ways to manage stress, such as getting regular exercise or practicing deep breathing, meditation, or yoga. ? Do not use any products that contain nicotine or tobacco. These products include cigarettes, chewing tobacco, and vaping devices, such as e-cigarettes. If you need help quitting, ask your health careprovider. ? Drink enough fluid to keep your urine pale yellow. ? Keep all follow-up visits. This is important. Contact a health care provider if: ? Your symptoms get worse. ? Your abdominal pain gets worse. ? Your symptoms return after treatment. ? You have a fever. Get help right away if: ? You vomit blood or a substance that looks like coffee grounds. ? You have black or dark red stools. ? You are unable to keep fluids down. These symptoms may represent a serious problem that is an emergency. Do not wait to see if the symptoms will go away. Get medical help right away. Call your local emergency services (911 in the [place] Do not drive yourself to the hospital. Summary ? Gastritis is inflammation of the lining of the stomach that can occur suddenly (acute) or develop slowly over time (chronic). ? This condition is diagnosed with a medical history, a physical exam, or tests. ? This condition may be treated with medicines to treat infection or medicines to reduce the amount of acid in your stomach. ? Follow your health care provider's instructions about taking medicines, making changes to your diet, and knowing when to call for help. This information is not intended to replace advice given to you by your health care provider. Make sure you discuss any questions you have with your health care provider. Document Revised: 06/29/2021 Document Reviewed: 06/29/2021 [employer] Patient Education ?? 2022 [employer] Tests Performed Medications and Immunizations Administered Given Al hydroxide/Mg hydroxide/simethicone, 30 mL, Oral Lidocaine Viscous, 15 mL, Oral ondansetron, 4 mg, IV Push Lab Test Name Test Result Date/Time WBC 10.0 K/mcL 04/27/2023 20:37 EST RBC 4.65 Million/mcL 04/27/2023 20:37 EST Hgb 14.2 g/dL 04/27/2023 20:37 EST Hct 42.2 % 04/27/2023 20:37 EST MCV 90.6 fL 04/27/2023 20:37 EST MCH 30.5 pg 04/27/2023 20:37 EST MCHC 33.7 g/dL 04/27/2023 20:37 EST RDW-CV 14.2 % 04/27/2023 20:37 EST Platelets 315 K/mcL 04/27/2023 20:37 EST MPV 8.4 fL 04/27/2023 20:37 EST Neutro Auto 62.3 % 04/27/2023 20:37 EST Lymph Auto 27.1 % 04/27/2023 20:37 EST Bay Auto 6.5 % 04/27/2023 20:37 EST Eos, Auto 3.20 % 04/27/2023 20:37 EST Basophil Auto 0.9 % 04/27/2023 20:37 EST Neutro Absolute 6.2 K/mcL 04/27/2023 20:37 EST Lymph Absolute 2.7 K/mcL 04/27/2023 20:37 EST Bay Absolute 0.7 K/mcL 04/27/2023 20:37 EST Eos Absolute 0.3 K/mcL 04/27/2023 20:37 EST Baso Absolute 0.1 K/mcL 04/27/2023 20:37 EST Sodium Level 137 mmol/L 04/27/2023 20:37 EST Potassium Level 4.1 mmol/L 04/27/2023 20:37 EST Chloride Level 100 mmol/L 04/27/2023 20:37 EST CO2 25 mmol/L 04/27/2023 20:37 EST Alk Phos 130 IntlUnit/L 04/27/2023 20:37 EST AST 38 IntlUnit/L 04/27/2023 20:37 EST ALT 28 IntlUnit/L 04/27/2023 20:37 EST BUN 20 mg/dL 04/27/2023 20:37 EST Glucose Level 193 mg/dL 04/27/2023 20:37 EST Creatinine Level 1.20 mg/dL 04/27/2023 20:37 EST BUN/Creat Ratio 16.7 04/27/2023 20:37 EST eGFR CKD-EPI 57 mL/min/1.73 m2 04/27/2023 20:37 EST Calcium Level 9.9 mg/dL 04/27/2023 20:37 EST Protein Total 7.6 g/dL 04/27/2023 20:37 EST Albumin Level 4.3 g/dL 04/27/2023 20:37 EST Globulin 3.3 g/dL 04/27/2023 20:37 EST A/G Ratio 1.3 g/dL 04/27/2023 20:37 EST Bilirubin Total 0.4 mg/dL 04/27/2023 20:37 EST Anion Gap 12.0 04/27/2023 20:37 EST Lactic Acid Lvl 2.3 mmol/L 04/27/2023 20:37 EST Lipase Level 42 unit/L 04/27/2023 20:37 EST Magnesium Level 1.8 mg/dL 04/27/2023 20:37 EST Osmolality 282 mOsm/kg 04/27/2023 20:37 EST UA Color YELLOW. 04/27/2023 20:37 EST UA Appear SL CLOUDY 04/27/2023 20:37 EST UA Glucose NEGATIVE 04/27/2023 20:37 EST UA Bili NEGATIVE 04/27/2023 20:37 EST UA Ketones NEGATIVE 04/27/2023 20:37 EST UA Spec Grav 1.025 04/27/2023 20:37 EST UA Blood NEGATIVE 04/27/2023 20:37 EST UA pH 6.00 04/27/2023 20:37 EST UA Protein 30 04/27/2023 20:37 EST UA Urobilinogen 0.2 04/27/2023 20:37 EST UA Nitrite NEGATIVE 04/27/2023 20:37 EST UA Leuk Est NEGATIVE 04/27/2023 20:37 EST Patient/Foundation Coordinator Signature Patient Name:MINDY CODY I have received this information and my questions have been answered. Patient/Foundation Coordinator Name: Patient/Foundation Coordinator Signature: Relationship to Patient: Witness Name/Signature: Date: Electronically Signed on: 04/27/2023 21:39 ESTSigned by: Patient Care team information Care Team Personnel Name: ASIYA HUYNH Position: No Access Member Role: Primary Care Physician Address: Address: [facility] - [address] [place] [address], [place] [address]-
[2023-08-30 21:07] VITALS: BP 170/119; PULSE 108; RESP 16; TEMP 36.7; O2SAT 93
--- OUTSIDE RECORDS SUMMARY | 2023-08-30 21:07 | XMS_ITS | Continuity of Care Document ---
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 Name Role Phone ASIYA HUYNH Primary Care Physician Encounter [facility] NBR [id number] Date(s): 05/20/23 - 05/20/23 [facility] Ambulatory Clinics [address], [place] [address] Encounter Diagnosis GERD (gastroesophageal reflux disease)(Discharge Diagnosis) - 05/20/23 Epigastric pain(Discharge Diagnosis) - 05/20/23 Diarrhea(Discharge Diagnosis) - 05/20/23 Hematochezia(Discharge Diagnosis) - 05/20/23 Unintentional weight loss(Discharge Diagnosis) - 05/20/23 Discharge Disposition: Home or Self Care Attending Physician: Sulema Akbar APRN Referring Physician: ASIYA HUYNH Allergies, Adverse Reactions, Alerts Substance Reaction Severity Status codeine Unknown Unknown Active ibuprofen Unknown Unknown Active morphine Unknown Unknown Active Adhesive Bandage Unknown Unknown Active traMADol Unknown Unknown Active Assessment and Plan Extracted from: Title:Office Visit Note-GI Author:Sulema Akbar APRN Date:05/20/23 1.??GERD (gastroesophageal r eflux disease)??K21.9 Continue pantoprazole 40 mg 30 minutes before evening meal.?? Discussed reflux triggering foods and beverages to avoid, to avoid eating 3 hours before bedtime and eat small frequent meals.?? Advised to avoid??NSAIDs.?? EGD to assess for mucosal injury, inflammation, H. pylori infection??and celiac disease. Ordered: Follow-up Appointment Request [facility], *Est. 06/03/23 +/- 2 days, Future Order, after EGD, In Approximately, [facility] Gastroenterology Surgical Procedure Booking Request [facility], 05/20/23 9:26:00 EDT, 07/08/23 10:00:00 EDT, epigastric pain, n/v, GERD (gastroesophageal reflux disease) Epigastric pain Diarrhea Hematochezia, Outpatient, EGD, Primary Procedure, [facility], , Eduin Urena MD, Consent to read EGD--007... ?? 2.??Epigastric pain??R10.13 As above. ??CT scan was unremarkable??and without??pancreatic etiology. Ordered: Follow-up Appointment Request [email or web address], *Est. 06/03/23 +/- 2 days, Future Order, after EGD, In [facility], [facility] Gastroenterology Surgical Procedure Booking Request [facility], 05/20/23 9:26:00 EDT, 07/08/23 10:00:00 EDT, epigastric pain, n/v, GERD (gastroesophageal reflux disease) Epigastric pain Diarrhea Hematochezia, Outpatient, EGD, Primary Procedure, [facility], , Eduin Urena MD, Consent to read EGD--007... ?? 3.??Diarrhea??R19.7 Status post??cholecystectomy. Question ?? 1 point. ??Unsure if it was beneficial.?? She is having worsening diarrhea and hematochezia.?? She has a history of internal hemorrhoids. ??Colonoscopy to rule out colitis or neoplasm. ? Ordered: Follow-up Appointment Request [email or web address], *Est. 06/03/23 +/- 2 days, Future Order, after EGD, In [facility] Gastroenterology Surgical Procedure Booking Request [facility], 05/20/23 9:26:00 EDT, 07/08/23 10:00:00 EDT, epigastric pain, n/v, GERD (gastroesophageal reflux disease) Epigastric pain Diarrhea Hematochezia, Outpatient, EGD, Primary Procedure, [facility], , Eduin Urena MD, Consent to read EGD--007... ?? 4.??Hematochezia??K92.1 As above. ??May benefit from??general surgery referral. Ordered: Follow-up Appointment Request [email or web address], *Est. 06/03/23 +/- 2 days, Future Order, after EGD, In [facility], [facility] Gastroenterology Surgical Procedure Booking Request [facility], 05/20/23 9:26:00 EDT, 07/08/23 10:00:00 EDT, epigastric pain, n/v, GERD (gastroesophageal reflux disease) Epigastric pain Diarrhea Hematochezia, Outpatient, EGD, Primary Procedure, 15, General, 31, Eduin Urena MD, Consent to read EGD--007... ?? 5.??Unintentional weight loss??R63.4 EGD and colonoscopy as above. ?? Voice recognition software utilized which may result in minor press bucker error. Future Appointments Functional Status 05/20/23 Other exposure to Infectious Disease Non e Medications amitriptyline 25 mg oral tablet 50 [...] 0 Refill(s) Start Date: 04/27/23 Status: Ordered QUEtiapine 25 mg oral tablet TAKE 1 TO 2 TABLETS BY MOUTH AT BEDTIME Start Date: 05/20/23 Status: Ordered zolpidem 12.5 mg =, Oral, every night at bedtime, 0 Refill(s) Start Date: 04/27/23 Status: Ordered Problem List Condition Confirmation Course Effective Dates Status Health Status Informant Asthma Confirmed Active ADD (attention deficit disorder) Confirmed Active Calculus of kidney and ureter Confirmed Active Diabetes Confirmed Active Diarrhea Confirmed Active Epigastric pain Confirmed Active Conversion disorder Confirmed Active GERD (gastroesophageal reflux disease) Confirmed Active Hematochezia Confirmed Active Hx of ovarian cancer Confirmed Active Papillomavirus, human Confirmed Active Hydronephrosis Confirmed Active Hypertension Confirmed Active Insomnia Confirmed Active IBS (irritable bowel syndrome) Confirmed Active Migraines Confirmed Active PTSD (post-traumatic stress disorder) Confirmed Active Psychophysiologic disorder Confirmed Active Seizure disorder Confirmed Active Sleep apnea Confirmed Active Unintentional weight loss Confirmed Active Procedures Procedure Date Related Diagnosis Body Site Status Ovarian cystectomy 10/17/20 Comple cl Carpal tunnel release 01/22/20 Com pleted Appendectomy Completed Cholecystectomy Completed Surgery 1 Completed 1knee Vital Signs Most recent to oldest [Reference Range]: 1 Apical Heart Rate [60-100 bpm] 116 bpm *HI* (05/20/23 8:58 AM) Blood Pressure [90-140/60-90 mmHg] 152/1 04mmHg *HI* (05/20/23 8:58 AM) Mean Arterial Pressure, Cuff [65-140 mmH g] 120 mmHg (05/20/23 8:58 AM) Weight 89.5 kg (05/20/23 8:58 AM) Weight Measured (lbs) 197.313 lb (05/20/23 8:58 AM) Weight Dosing 89.500 kg (05/20/23 8:58 AM) [place] Body Weight Calculated 61.6 kg (05/20/23 8:58 AM) Height 170.18 cm (05/20/23 8:58 AM) Height/Length Measured (inches) 67 inch (05/20/23 8:58 AM) BSA Measured 2.06 m2 (05/20/23 8:58 AM) Body Mass Index 30.9 kg/m2 (05/20/23 8:58 AM) Social History Social History Type Response Tobacco Current everyday tob acco user Tobacco Use:. Sex Physician Outpatient Note * Sulema Akbar APRN: PERFORM Event Display: Office Clinic Note Physician Authored Date: [id number] MINDY CODY :1980 Age:43 years Sex:Female Visit Date:05/20/2023 Primary Care Physician: ASIYA HUYNH Chief Complaint Question of H. pylori gastritis History of Present Illness Patient is a 43-year-old female here today at the request of DILEEP Song for question of H. pylori gastritis. ??She is an established patient who was last seen??08/26/2021 and has been lost to follow-up. ??She was seen in the past for diarrhea.?? At one time was on Questran powder, unsure if??of any??benefit.?Patient??states currently she is taking pantoprazole 40 mg every evening??which helps and she no longer has pyrosis however in the last 2 months she has had??epigastric pain anddyspepsia.?? Has nausea constantly.?? And vomits approximately twice a week??dry heaves when she does.?? She was in the emergency room at [facility] on 04/27/2023 she was given a GI cocktail which provided re lief.?? She avoids NSAIDs.?? States she is hungry but if she eats her pain worsens.?? It also causes her to have??loose stools.?? Denies any constipation.?? She states with this pain she is also had increasing hematochezia??and lots of blood in the toilet.?? Her stools are Mcclure form 5 or 6.?? She is lost 15 pounds since December 2022.?? Denies any dysphagia or globus sensation.?? States she avoids NSAIDs. ?? Patient has a history of diverticular disease, irritable bowel syndrome with diarrhea, cholecystectomy in 2008, she has a history of C. difficile in 2020.?? May 2021, and July 2021. ?? Labs: 04/27/2023 CBC complete metabolic panel unremarkable. ?? Imagin04/27/2023 CT scan of the abdomen pelvis with contrast??showed small hemangiomas in the liver??liverdisease. ?? EGD: -12/22/2016 at [facility] gastritis. ??No biopsies??available. ?? Colonoscopy: -02/28/2017 6 mm polyp, biopsy unknown.?? Hemorrhoids. -07/06/2020 at [facility] grade 1 internal hemorrhoids,??4 segmental biopsies including the rectum showedno colitis. -08/12/2020 patient had a colonoscopy in April showing grade 1 internal hemorrhoids. Colon biopsies, 60, 30 cm in the rectum were all negative. ?? Denies any exposure to contaminated food or water. Denies any ill contacts. ?? Denies a family history of celiac disease, inflammatory bowel disease or gastrointestinal cancers however she does state that she does not have contact with her family. ?? She is accompanied today by a male family member. Review of Systems General: Denies malaise or fatigue. HEENT: Denies globus sensation or dysphagia. Respiratory: Denies shortness of breath, cough, or wheeze. Cardiovascular: Denies chest pain, palpitations, lightheadedness, dizziness, syncope or peripheral edema. ?? Abdomen:??Complains of severe epigastric pain to the umbilicus,??nausea and vomiting, dyspepsia,??hematochezia, unintentional weight loss. ??She denies any constipation, she has diarrhea??stools are Mcclure form 5-6.?? Denies pyrosis.?? States she is always hungry. Skin: Denies rashes or lesions. Neurological: Denies any problems with gait or balance. Physical Exam Vitals & Measurements HR:??116??(Apical)?? BP:??152/104?? SpO2:??96%?? HT:??170.18??cm?? WT:??89.5??kg?? BMI:??30.9?? BSA:??2.06?? General: Well-nourished well-developed??female??in no acute distress. HEENT: Head is normocephalic, trachea midline, and no cervical lymphadenopathy. Respiratory: Respirations are even and unlabored. ??Lungs are clear to auscultation. Cardiovascular: Regular rate and rhythm with S1 and S2. Abdomen: Positive bowel sounds x4 quadrants, ventral hernia noted, no guarding,??epigastric tenderness. ??No hepatosplenomegaly. ??Abdomen is soft. Skin: Warm, dry, and pink. Neurological: Alert and oriented x3, speech is clear and gait is steady. Psychological: Pleasant, calm and cooperative. Assessment/Plan 1.??GERD (gastroesophageal reflux disease)??K21.9 Continue pantoprazole 40 mg 30 minutes before evening meal.?? Discussed reflux triggering foods andbeverages to avoid, to avoid eating 3 hours before bedtime and eat small frequent meals.?? Advised to avoid??NSAIDs.?? EGD to assess for mucosal injury, inflammation, H. pylori infection??and celiac disease. Ordered: Follow-up Appointment Request [email or web address], *Est. 06/03/23 +/- 2 days, Future Order, after EGD, In [facility], [facility] Gastroenterology Surgical Procedure Booking Request [facility], 05/20/23 9:26:00 EDT, 07/08/23 10:00:00 EDT, epigastric pain, n/v, GERD (gastroesophageal reflux disease) Epigastric pain Diarrhea Hematochezia, Outpatient, EGD, Primary Procedure, , General, 31, Eduin Urena MD, Consent to read EGD--007... ?? 2.??Epigastric pain??R10.13 As above. ??CT scan was unremarkable??and without??pancreatic etiology. Ordered: Follow-up Appointment Request [facility], *Est. 06/03/23 +/- 2 days, Future Order, after EGD, In [facility], [facility] Gastroenterology Surgical Procedure Booking Request [facility], 05/20/23 9:26:00 EDT, 07/08/23 10:00:00 EDT, epigastric pain, n/v, GERD (gastroesophageal reflux disease) Epigastric pain Diarrhea Hematochezia, Outpatient, EGD, Primary Procedure, , [facility], 31, Eduin Urena MD, Consent to read EGD--007... ?? 3.??Diarrhea??R19.7 Status post??cholecystectomy. Question ?? 1 point. ??Unsure if it was beneficial.?? She is having worsening diarrhea and hematochezia.?? She has a history of internal hemorrhoids. ??Colonoscopy to rule out colitis or neoplasm. Ordered: Follow-up Appointment Request [facility], *Est. 06/03/23 +/- 2 days, Future Order, after EGD, In [facility], [facility] Gastroenterology Surgical Procedure Booking Request [facility], 05/20/23 9:26:00 EDT, 07/08/23 10:00:00 EDT, epigastric pain, n/v, GERD (gastroesophageal reflux disease) Epigastric pain Diarrhea Hematochezia, Outpatient, EGD, Primary Procedure, , [facility], 31, Eduin Urena MD, Consent to read EGD--007... ?? 4.??Hematochezia??K92.1 As above. ??May benefit from??general surgery referral. Ordered: Follow-up Appointment Request [email or web address], *Est. 06/03/23 +/- 2 days, Future Order, after EGD, In Approximately, [facility] Gastroenterology Surgical Procedure Booking Request [facility], 05/20/23 9:26:00 EDT, 07/08/23 10:00:00 EDT, epigastric pain, n/v, GERD (gastroesophageal reflux disease) Epigastric pain Diarrhea Hematochezia, Outpatient, EGD, Primary Procedure, 15, General, 31, Eduin Urena MD, Consent to read EGD--007... ?? 5.??Unintentional weight loss??R63.4 EGD and colonoscopy as above. ?? Voice recognition software utilized which may result in minor press bucker error. Problem List/Past Medical History Ongoing ADD (attention deficit disorder) Asthma Calculus of kidney and ureter Conversion disorder Diabetes Diarrhea Epigastric pain GERD (gastroesophageal reflux disease) Hematochezia Hx of ovarian cancer Hydronephrosis Hypertension IBS (irritable bowel syndrome) Insomnia Migraines Papillomavirus, human Psychophysiologic disorder PTSD (post-traumatic stress disorder) Seizure disorder Sleep apnea Tobacco user Unintentional weight loss Historical No qualifying data Procedure/Surgical History ???Ovarian cystectomy (10/18/2020)???Carpal tunnel release (01/23/2020)???Appendectomy???Cholecystectomy???Surgery Medications amitriptyline 25 mg oral tablet, 50 mg= 2 tab, Oral, every night at bedtime estradiol 1 mg oral tablet, 1 mg= 1 tab, Oral, Daily lamoTRIgine 200 mg oral tablet, 200 mg= 1 tab, Oral, Daily oxyCODONE 5 mg oral capsule, 5 mg= 1 cap, Oral, every 6 hr, PRN pantoprazole 40 mg oral delayed release tablet, 40 mg= 1 tab, Oral, Daily potassium chloride 20 mEq oral tablet, extended release, 20 mEq= 1 tab, Oral, Daily QUEtiapine 25 mg oral tablet zolpidem, 12.5 mg, Oral, every night at bedtime Allergies Adhesive Bandage??(Unknown) codeine??(Unknown) ibuprofen??(Unknown) morphine??(Unknown) traMADol??(Unknown) Social History Alcohol Never Electronic Cigarette/Vaping Electronic Cigarette Use: Never. Substance Use Never Tobacco Current everyday tobacco user Tobacco Use:. Family History Family history is unknown Electronically Signed on 05/20/23 09:30 AM Sulema Akbar APRN Patient Care team information Care Team Personnel Name: ASIYA HUYNH Position: No Access Member Role: Primary Care Physician Address: Address: [facility] - [address] [place] [phone] [place]
--- OUTSIDE RECORDS SUMMARY | 2023-08-30 21:07 | XMS_ITS | Continuity of Care Document ---
Author Name Unknown Organization [facility] Address [address] [place] [id number] Care Team Providers Care Digital Media Associate Name Role Phone ASIYA HUYNH Primary Care Physician Encounter LTTL_AR FIN NBR [phone] Date(s): 07/08/23 - 07/08/[address] [address] Encounter Diagnosis Diarrhea(Discharge Diagnosis) - 07/08/23 Hematochezia(Discharge Diagnosis) - 07/08/23 Dyspepsia(Discharge Diagnosis) - 07/08/23 Discharge Disposition: Home f/u External Provider Attending Physician: Eduin Urena MD Admitting Physician: Eduin Urena MD Referring Physician: Eduin Urena MD Allergies, Adverse Reactions, Alerts Substance Reaction Severity Status codeine Vomiting Moderate Active ibuprofen Vomiting Moderate Active morphine Vomiting Moderate Active Adhesive Bandage Skin irritation Unknown Mild Active traMADol Vomiting Moderate Active Assessment and Plan Extracted from: Title:H & P Author:Eduin Urena MD Amaury e:07/08/23 1.??Diarrhea??R19.7 ??EGD and colonoscopy today. 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 2.??Hematochezia??K92.1 3.??Dyspepsia??R10.13 Orders: sodium chloride 0.9% flush, 10 mL, IV Flush, Injection, every 8 hr, First Dose: 07/08/23 7:00:00 EDT, Routine sodium chloride 0.9% flush, 10 mL, IV Flush, Injection, As Directed, First Dose: 07/08/23 6:10:00 EDT, Physician Stop, Routine Sodium Chloride 0.9% 1,000 mL, Total Volume (mL): 1,000, 1,000 mL, Soln-IV, IV, 50 mL/hr, Start Date: 07/08/23 6:10:00 EDT, 89 kg, Populate Charting Weight From Order, 2.05, m2 Blood Glucose Monitoring POC RE, 07/08/23 6:10:00 EDT, Stop date 07/08/23 6:10:00 EDT Diet Order, 07/08/23 6:10:00 EDT, Regular Discharge Patient, 07/08/23 6:10:00 EDT, Discharge when stable per SDS criteria Discharge Patient, 07/08/23 6:10:00 EDT, Discharge when stable per anesthesia criteria Discharge Patient Instructions, It is important that a responsible adult drive you home today Discharge Patient Instructions, Do not sign any contracts, make any major decisions, or drive or operate machinery for 24 hours Discharge Patient Instructions, You should not be responsible for the care of others Discharge Patient Instructions, Avoid alcohol, tranquilizers, sleeping pills, or cold medicines for 24 hours Discharge Patient Instructions, Call or come to emergency department if having unusual pain or severe abdominal pain Discharge Patient Instructions, You may resume your normal activity in 24 hours Discharge Patient Instructions, Call or come to emergency department if vomiting blood or having black bowel movements, rectal bleeding or passing blood clots Discharge Patient Instructions, Call or come to emergency department for dizziness Discharge Patient Instructions, Call or come to emergency department chest pain, or shortness of breath Discharge Patient Instructions, Call or come to emergency department for fever greater than 100 ??F Discharge Patient Instructions, Call with any additional questions or concerns Discharge Patient Instructions, You may experience some gas cramps and abdominal bloating Discharge Patient Instructions, Cramping and abdominal bloating should subside in 1 hour or so Discharge Patient Instructions, Passing gas rectally and belching is normal Discharge Patient Instructions, A light first meal may feel better in your stomach Obtain consent, 07/08/23 6:10:00 EDT, Constant Order, 07/08/23 6:10:00 EDT Peripheral IV Insertion, 07/08/23 6:10:00 EDT Saline Lock Convert From IV, 07/08/23 6:10:00 EDT, Stop date 07/08/23 6:10:00 EDT Vital Signs, 07/08/23 6:10:00 EDT, Once, Stop date 07/08/23 6:10:00 EDT Vital Signs, 07/08/23 6:10:00 EDT, Stop date 07/08/23 6:10:00 EDT, Routine Vital Signs, 07/08/23 6:10:00 EDT, Stop date 07/08/23 6:10:00 EDT, As needed Future Appointments Diagnostic Tests Pending * Celiac Disease Comprehensive LC 07/08/23 Functional Status 07/08/23 ADLs Independent Medications albuterol 90 mcg/inh aerosol inhaler 1 puffs, Inhale, every 6 hr, PRN as needed for wheezing, # 8.5 g, 0 Refill(s) Start Date: 06/29/23 Status: Ordered amitriptyline 25 mg oral tablet 50 mg = 2 tab, Oral, every night at bedtime, # 60 tab, 0 Refill(s) Start Date: 04/27/23 Status: Ordered estradiol 1 mg oral tablet 1 mg = 1 tab, Oral, Daily, # 90 tab, 0 Refill(s) Start Date: 04/27/23 Status: Ordered Flovent HFA 44 mcg/inh inhalation aerosol 2 puffs, Inhale, BID, # 10.6 g, 0 Refill(s) Start Date: 06/29/23 Status: Ordered lamoTRIgine 200 mg oral tablet 200 mg = 1 tab, Oral, Daily, # 60 tab, 0 Refill(s) Start Date: 04/27/23 Status: Ordered naloxone 4 mg/0.1 mL nasal spray 1 sprays, Nasal - Both Sides, Once, PRN overdose, may repeat every 2 to 3 minutes until patient responds, # 2 EA, 0 Refill(s) Start Date: 06/29/23 Status: Ordered oxyCODONE 5 mg oral capsule [...] AT BEDTIME Start Date: 05/20/23 Status: Ordered sucralfate 1 g oral tablet TAKE 1 TABLET BY MOUTH FOUR TIMES DAILY Start Date: 06/29/23 Status: Ordered zolpidem 12.5 mg =, Oral, [...] Procedure Date Related Diagnosis Body Site Status Esophagogastroduodenoscopy a nd Colonoscopy with Biopsy 1 07/08/23 Comple cl Ovarian cystectomy 10/17/22 Comple cl Laparoscopic hysterectomy 11/06/21 Completed Carpal tunnel release 01/22/20 Com pleted Appendectomy Completed Arthroscopy of knee Compl eted Arthroscopy of knee Compl eted Cholecystectomy Completed Percutaneous nephrolithotomy Completed Surgery 2 Completed 1auto-populated from documented surgical case 2knee Results Laboratory List Name Date Glucose POCT 07/08/23 Most recent to oldest [Reference Range]: 1 Glucose POC 144 *NA* (07/08/23 6:55 AM) Vital Signs Most recent to oldest [Reference Range]: 1 2 3 Temperature Temporal Artery [36-38 Deg C] 36.3 Deg C (07/08/23 7:58 AM) 36.4 Deg C (07/08/23 6:33 AM) Temperature Temporal Artery (DegF) [97.3-100 Deg F] 97.34 Deg F (07/08/23 7:58 AM) Peripheral Pulse Rate [60-100 bpm] 85 bpm (07/08/23 8:10 AM) 90 bpm (07/08/23 8:02 AM) 88 bpm (07/08/23 7:58 AM) Heart Rate Monitored [60-100 bpm] 94 bpm (07/08/23 6:33 AM) Respiratory Rate [12-24 br/min] 16 br/min (07/08/23 8:10 AM) 16 br/min (07/08/23 8:02 AM) 18 br/min (07/08/23 7:58 AM) Blood Pressure [90-140/60-90 mmHg] 129/87mmHg (07/08/23 8:10 AM) 136/101mmHg (07/08/23 8:02 AM) 136/93mmHg (07/08/23 7:58 AM) Mean Arterial Pressure, Cuff [65-140 mmHg] 101 mmHg (07/08/23 8:10 AM) 113 mmHg (07/08/23 8:02 AM) 107 mmHg (07/08/23 7:58 AM) Mean Arterial Pressure Cuff 111 mmHg (07/08/23 8:10 AM) 106 mmHg (07/08/23 7:58 AM) Weight 88.9 kg (07/08/23 6:33 AM) Weight Dosing 88.900 kg (07/08/23 6:33 AM) Height 170.18 cm (07/08/23 6:33 AM) Body Mass Index 30.7 kg/m2 (07/08/23 6:33 AM) Social History Social History Type Response Tobacco Current everyday tob acco user Tobacco Use:. Sex Hospital Discharge Instructions Patient Education 07/08/2023 07:03:25 Upper Endoscopy, Adult, Care After Upper Endoscopy, Adult, Care After After the procedure, it is common to have a sore throat. It is also common to have: ??? Mild stomach pain or discomfort. ??? Bloating. ??? Nausea. Follow these instructions at home: The instructions below may help you care for yourself at home. Your health care provider may give you more instructions. If you have questions, ask your health care provider. ??? If you were given a sedative during the procedure, it can affect you for several hours. Do not drive or operate machinery until your health care provider says that it is safe. ??? If you will be going home right after the procedure, plan to have a responsible adult: ??? Take you home from the hospital or clinic. You will not be allowed to drive. ??? Care for you for the time you are told. ??? Follow instructions from your health care provider about what you may eat and drink. ??? Return to your normal activities as told by your health care provider. Ask your health care provider what activities are safe for you. ??? Take wasw-edb-lkhhqpv and prescription medicines only as told by your health care provider. Contact a health care provider if you: ??? Have a sore throat that lasts longer than one day. ??? Have trouble swallowing. ??? Have a fever. Get help right away if you: ??? Vomit blood or your vomit looks like coffee grounds. ??? Have bloody, black, or tarry stools. ??? Have a very bad sore throat or you cannot swallow. ??? Have difficulty breathing or very bad pain in your chest or abdomen. These symptoms may be an emergency. Get help right away. Call 911. ??? Do not wait to see if the symptoms will go away. ??? Do not drive yourself to the hospital. Summary ??? After the procedure, it is common to have a sore throat, mild stomach discomfort, bloating, andnausea. ??? If you were given a sedative during the procedure, it can affect you for several hours. Do not drive until your health care provider says that it is safe. ??? Follow instructions from your health care provider about what you may eat and drink. ??? Return to your normal activities as told by your health care provider. This information is not intended to replace advice given to you by your health care provider. Make sure you discuss any questions you have with your health care provider. Document Revised: 06/04/2022 Document Reviewed: 06/04/2022 [employer] Patient Education ?? 2022 [employer]. 07/08/2023 07:03:21 Hemorrhoids Hemorrhoids Hemorrhoids are swollen veins in and around the rectum or anus. There are two types of hemorrhoids: ??? Internal hemorrhoids. These occur in the veins that are just inside the rectum. They may poke through to the outside and become irritated and painful. ??? External hemorrhoids. These occur in the veins that are outside the anus and can be felt as a painful swelling or hard lump near the anus. Most hemorrhoids do not cause serious problems, and they can be managed with home treatments such as diet and lifestyle changes. If home treatments do not help the symptoms, procedures can be done toshrink or remove the hemorrhoids. What are the causes? This condition is caused by increased pressure in the anal area. This pressure may result from various things, including: ??? Constipation. ??? Straining to have a bowel movement. ??? Diarrhea. ??? . ??? Obesity. ??? Sitting for long periods of time. ??? Heavy lifting or other activity that causes you to strain. ??? Anal sex. ??? Riding a bike for a long period of time. What are the signs or symptoms? Symptoms of this condition include: ??? Pain. ??? Anal itching or irritation. ??? Rectal bleeding. ??? Leakage of stool (feces). ??? Anal swelling. ??? One or more lumps around the anus. How is this diagnosed? This condition can often be diagnosed through a visual exam. Other exams or tests may also be done,such as: ??? An exam that involves feeling the rectal area with a gloved hand (digital rectal exam). ??? An exam of the anal canal that is done using a small tube (anoscope). ??? A blood test, if you have lost a significant amount of blood. ??? A test to look inside the colon using a flexible tube with a camera on the end (sigmoidoscopy or colonoscopy). How is this treated? This condition can usually be treated at home. However, various procedures may be done if dietary changes, lifestyle changes, and other home treatments do not help your symptoms. These procedures canhelp make the hemorrhoids smaller or remove them completely. Some of these procedures involve surgery, and others do not. Common procedures include: ??? Rubber band ligation. Rubber bands are placed at the base of the hemorrhoids to cut off their blood supply. ??? Sclerotherapy. Medicine is injected into the hemorrhoids to shrink them. ??? Infrared coagulation. A type of light energy is used to get rid of the hemorrhoids. ??? Hemorrhoidectomy surgery. The hemorrhoids are surgically removed, and the veins that supply them are tied off. ??? Stapled hemorrhoidopexy surgery. The surgeon jesus alberto the base of the hemorrhoid to the rectal wall. Follow these instructions at home: Eating and drinking ??? Eat foods that have a lot of fiber in them, such as whole grains, beans, nuts, fruits, and vegetables. ??? Ask your health care provider about taking products that have added fiber (fiber supplements). ??? Reduce the amount of fat in your diet. You can do this by eating low-fat dairy products, eatingless red meat, and avoiding processed foods. ??? Drink enough fluid to keep your urine pale yellow. Managing pain and swelling ??? Take warm sitz baths for 20 minutes, 3???4 times a day to ease pain and discomfort. You may do this in a bathtub or using a portable sitz bath that fits over the toilet. ??? If directed, apply ice to the affected area. Using ice packs between sitz baths may be helpful. ??? Put ice in a plastic bag. ??? Place a towel between your skin and the bag. ??? Leave the ice on for 20 minutes, 2???3 times a day. General instructions ??? Take vgie-vfh-tdveaod and prescription medicines only as told by your health care provider. ??? Use medicated creams or suppositories as told. ??? Get regular exercise. Ask your health care provider how much and what kind of exercise is best for you. In general, you should do moderate exercise for at least 30 minutes on most days of the week (150 minutes each week). This can include activities such as walking, biking, or yoga. ??? Go to the bathroom when you have the urge to have a bowel movement. Do not wait. ??? Avoid straining to have bowel movements. ??? Keep the anal area dry and clean. Use wet toilet paper or moist towelettes after a bowel movement. ??? Do not sit on the toilet for long periods of time. This increases blood pooling and pain. ??? Keep all follow-up visits as told by your health care provider. This is important. Contact a health care provider if you have: ??? Increasing pain and swelling that are not controlled by treatment or medicine. ??? Difficulty having a bowel movement, or you are unable to have a bowel movement. ??? Pain or inflammation outside the area of the hemorrhoids. Get help right away if you have: ??? Uncontrolled bleeding from your rectum. Summary ??? Hemorrhoids are swollen veins in and around the rectum or anus. ??? Most hemorrhoids can be managed with home treatments such as diet and lifestyle changes. ??? Taking warm sitz baths can help ease pain and discomfort. ??? In severe cases, procedures or surgery can be done to shrink or remove the hemorrhoids. This information is not intended to replace advice given to you by your health care provider. Make sure you discuss any questions you have with your health care provider. Document Revised: 09/03/2021 Document Reviewed: 09/04/2021 [employer] Patient Education ?? 2022 [employer]. 07/08/2023 07:03:17 Colon Polyps Colon Polyps Colon polyps are tissue growths inside the colon, which is part of the large intestine. They are one of the types of polyps that can grow in the body. A polyp may be a round bump or a mushroom-shapedgrowth. You could have one polyp or more than one. Most colon polyps are noncancerous (benign). However, some colon polyps can become cancerous over time. Finding and removing the polyps early can help prevent this. What are the causes? The exact cause of colon polyps is not known. What increases the risk? The following factors may make you more likely to develop this condition: ??? Having a family history of colorectal cancer or colon polyps. ??? Being older than 45 years of age. ??? Being younger than 45 years of age and having a significant family history of colorectal canceror colon polyps or a genetic condition that puts you at higher risk of getting colon polyps. ??? Having inflammatory bowel disease, such as ulcerative colitis or Crohn's disease. ??? Having certain conditions passed from parent to child (hereditary conditions), such as: ??? Familial adenomatous polyposis (FAP). ??? Rodarte syndrome. ??? Turcot syndrome. ??? Peutz???Jeghers syndrome. ??? MUTYH-associated polyposis (MAP). ??? Being overweight. ??? Certain lifestyle factors. These include smoking cigarettes, drinking too much alcohol, not getting enough exercise, and eating a diet that is high in fat and red meat and low in fiber. ??? Having had childhood cancer that was treated with radiation of the abdomen. What are the signs or symptoms? Many times, there are no symptoms. If you have symptoms, they may include: ??? Blood coming from the rectum during a bowel movement. ??? Blood in the stool (feces). The blood may be bright red or very dark in color. ??? Pain in the abdomen. ??? A change in bowel habits, such as constipation or diarrhea. How is this diagnosed? This condition is diagnosed with a colonoscopy. This is a procedure in which a lighted, flexible scope is inserted into the opening between the buttocks (anus) and then passed into the colon to examine the area. Polyps are sometimes found when a colonoscopy is done as part of routine cancer screening tests. How is this treated? This condition is treated by removing any polyps that are found. Most polyps can be removed during a colonoscopy. Those polyps will then be tested for cancer. Additional treatment may be needed depending on the results of testing. Follow these instructions at home: Eating and drinking ??? Eat foods that are high in fiber, such as fruits, vegetables, and whole grains. ??? Eat foods that are high in calcium and vitamin D, such as milk, cheese, yogurt, eggs, liver, fish, and broccoli. ??? Limit foods that are high in fat, such as fried foods and desserts. ??? Limit the amount of red meat, precooked or cured meat, or other processed meat that you eat, such as hot dogs, sausages, esposito, or meat loaves. ??? Limit sugary drinks. Lifestyle ??? Maintain a healthy weight, or lose weight if recommended by your health care provider. ??? Exercise every day or as told by your health care provider. ??? Do not use any products that contain nicotine or tobacco, such as cigarettes, e-cigarettes, andchewing tobacco. If you need help quitting, ask your health care provider. ??? Do not drink alcohol if: ??? Your health care provider tells you not to drink. ??? You are , may be , or are planning to become . ??? If you drink alcohol: ??? Limit how much you use to: ??? 0???1 drink a day for women. ??? 0???2 drinks a day for men. ??? Know how much alcohol is in your drink. In the [place] one drink equals one 12 oz bottle of beer (355 mL), one 5 oz glass of wine (148 mL), or one 1?? oz glass of hard liquor (44 mL). General instructions ??? Take jcqk-rnn-xihwspk and prescription medicines only as told by your health care provider. ??? Keep all follow-up visits. This is important. This includes having regularly scheduled colonoscopies. Talk to your health care provider about when you need a colonoscopy. Contact a health care provider if: ??? You have new or worsening bleeding during a bowel movement. ??? You have new or increased blood in your stool. ??? You have a change in bowel habits. ??? You lose weight for no known reason. Summary ??? Colon polyps are tissue growths inside the colon, which is part of the large intestine. They are one type of polyp that can grow in the body. ??? Most colon polyps are noncancerous (benign), but some can become cancerous over time. ??? This condition is diagnosed with a colonoscopy. ??? This condition is treated by removing any polyps that are found. Most polyps can be removed during a colonoscopy. This information is not intended to replace advice given to you by your health care provider. Make sure you discuss any questions you have with your health care provider. Document Revised: 06/13/2020 Document Reviewed: 06/13/2020 [employer] Patient Education ?? 2022 [employer]. 07/08/2023 07:03:16 Colonoscopy, Adult, Care After Colonoscopy, Adult, Care After The following information offers guidance on how to care for yourself after your procedure. Your health care provider may also give you more specific instructions. If you have problems or questions, contact your health care provider. What can I expect after the procedure? After the procedure, it is common to have: ??? A small amount of blood in your stool for 24 hours after the procedure. ??? Some gas. ??? Mild cramping or bloating of your abdomen. Follow these instructions at home: Eating and drinking ??? Drink enough fluid to keep your urine pale yellow. ??? Follow instructions from your health care provider about eating or drinking restrictions. ??? Resume your normal diet as told by your health care provider. Avoid heavy or fried foods that are hard to digest. Activity ??? Rest as told by your health care provider. ??? Avoid sitting for a long time without moving. Get up to take short walks every 1???2 hours. This is important to improve blood flow and breathing. Ask for help if you feel weak or unsteady. ??? Return to your normal activities as told by your health care provider. Ask your health care provider what activities are safe for you. Managing cramping and bloating ??? Try walking around when you have cramps or feel bloated. ??? If directed, apply heat to your abdomen as told by your health care provider. Use the heat source that your health care provider recommends, such as a moist heat pack or a heating pad. ??? Place a towel between your skin and the heat source. ??? Leave the heat on for 20???30 minutes. ??? Remove the heat if your skin turns bright red. This is especially important if you are unable to feel pain, heat, or cold. You have a greater risk of getting burned. General instructions ??? If you were given a sedative during the procedure, it can affect you for several hours. Do not drive or operate machinery until your health care provider says that it is safe. ??? For the first 24 hours after the procedure: ??? Do not sign important documents. ??? Do not drink alcohol. ??? Do your regular daily activities at a slower pace than normal. ??? Eat soft foods that are easy to digest. ??? Take zgio-kkc-ftkiewh and prescription medicines only as told by your health care provider. ??? Keep all follow-up visits. This is important. Contact a health care provider if: ??? You have blood in your stool 2???3 days after the procedure. Get help right away if: ??? You have more than a small spotting of blood in your stool. ??? You have large blood clots in your stool. ??? You have swelling of your abdomen. ??? You have nausea or vomiting. ??? You have a fever. ??? You have increasing pain in your abdomen that is not relieved with medicine. These symptoms may be an emergency. Get help right away. Call 911. ??? Do not wait to see if the symptoms will go away. ??? Do not drive yourself to the hospital. Summary ??? After the procedure, it is common to have a small amount of blood in your stool. You may also have mild cramping and bloating of your abdomen. ??? If you were given a sedative during the procedure, it can affect you for several hours. Do not drive or operate machinery until your health care provider says that it is safe. ??? Get help right away if you have a lot of blood in your stool, nausea or vomiting, a fever, or increased pain in your abdomen. This information is not intended to replace advice given to you by your health care provider. Make sure you discuss any questions you have with your health care provider. Document Revised: 10/16/2021 Document Reviewed: 10/16/2021 [email or web address] Patient Education ?? 2022 [employer]. Discharge instructions * Leola Lorenzo: PERFORM Event Display: Discharge Instructions Authored Date: [id number] MINDY CODY :1980 Age:43 years Sex:Female Visit Date:07/08/2023 Primary Care Physician: ASIYA HUYNH [facility] Discharge Instructions We would like to thank you for allowing us to assist you with your healthcare needs. The following includes patient education materials and information regarding your injury/illness. Your Next Steps Scheduled Future Appointments Thursday. 2023 2:30 PM EDT ?? With: Sulema Akbar APRN Where: [facility] Gastroenterology Status: Confirmed Medications What How Much When Instructions Next Dose Unchanged albuterol (albuterol 90 mcg/ inh aerosol inhaler) 1 Puffs Inhale (breathe in) Every 6 hours as needed for as needed for wheezing Unchanged amitriptyline (amitriptyline 25 mg oral tablet) 2 tab Oral (given by mouth) Every night at bedtime Unchanged estradiol (estradiol 1 mg oral tablet) 1 tab Oral (given by mouth) Every day Unchanged fluticasone (Flovent HFA 44 mcg/ inh inhalation aerosol) 2 Puffs Inhale (breathe in) 2 times a day Unchanged lamoTRIgine (lamoTRIgine 200 mg oral tablet) 1 tab Oral (given by mouth) Every day Unchanged naloxone (naloxone 4 mg/ 0.1 mL nasal spray) 1 Sprays Nasal (into the nose) Once as needed for overdose may repeat every 2 to 3 minutes until patient responds ?? Unchanged oxyCODONE (oxyCODONE 5 mg oral capsule) 1 Capsules Oral (given by mouth) Every 6 hours as needed for as needed for pain Unchanged pantoprazole (pantoprazole 40 mg oral delayed release tablet) 1 tab Oral (given by mouth) Every day Unchanged potassium chloride (potassium chloride 20 mEq oral tablet, extended release) 1 tab Oral (given by mouth) Every day Unchanged QUEtiapine (QUEtiapine 25 mg oral tablet) TAKE 1 TO 2 TABLETS BY MOUTH AT BEDTIME ?? Unchanged sucralfate (sucralfate 1 g oral tablet) TAKE 1 TABLET BY MOUTH FOUR TIMES DAILY ?? Unchanged zolpidem 12.5 Milligrams Oral (given by mouth) Every night at bedtime Your Summary Your Care Team Admitting Physician - Eduin Urena MD Attending Physician - Eduin Urena MD Primary Care Physician - ASIYA HUYNH Referring Physician - Eduin Urena MD Your Diagnosis Diarrhea Hematochezia Dyspepsia Problems Ongoing - Any problem that you are currently receiving treatment for. ADD (attention deficit disorder) Asthma Calculus of kidney and ureter Conversion disorder Diabetes Diarrhea Epigastric pain GERD (gastroesophageal reflux disease) Hematochezia Hx of ovarian cancer Hydronephrosis Hypertension IBS (irritable bowel syndrome) Insomnia Migraines Papillomavirus, human Psychophysiologic disorder PTSD (post-traumatic stress disorder) Seizure disorder Sleep apnea Tobacco user Unintentional weight loss Procedures Performed ???Esophagogastroduodenoscopy and Colonoscopy with Biopsy (07/08/2023)???Laparoscopic hysterectomy (11/07/2021) Tests Performed/Pending Celiac Disease Comprehensive LC?-- Results Pending -- Glucose POCT Discharge Vitals Temperature??(Temporal Artery) 97.3 ??F (36.3 ??C) Heart Rate??(Peripheral) 85 Respiratory Rate?? 16 Blood Pressure?? 129/87?? SpO2?? 98% Height?? 67.00 in (170.18 cm) Weight?? 196.02 lb (88.9 kg) BMI?? 30.7 Allergies codeine??(Vomiting) ibuprofen??(Vomiting) morphine??(Vomiting) traMADol??(Vomiting) Adhesive Bandage??(Skin irritation, Unknown) Education Materials Upper Endoscopy, Adult, Care After After the procedure, it is common to have a sore throat. It is also common to have: ? Mild stomach pain or discomfort. ? Bloating. ? Nausea. Follow these instructions at home: The instructions below may help you care for yourself at home. Your health care provider may give you more instructions. If you have questions, ask your health care provider. ? If you were given a sedative during the procedure, it can affect you for several hours. Do not drive or operate machinery until your health care provider says that it is safe. ? If you will be going home right after the procedure, plan to have a responsible adult: ? Take you home from the hospital or clinic. You will not be allowed to drive. ? Care for you for the time you are told. ? Follow instructions from your health care provider about what you may eat and drink. ? Return to your normal activities as told by your health care provider. Ask your health care provider what activities are safe for you. ? Take eded-fjc-yapfxag and prescription medicines only as told by your health care provider. Contact a health care provider if you: ? Have a sore throat that lasts longer than one day. ? Have trouble swallowing. ? Have a fever. Get help right away if you: ? Vomit blood or your vomit looks like coffee grounds. ? Have bloody, black, or tarry stools. ? Have a very bad sore throat or you cannot swallow. ? Have difficulty breathing or very bad pain in your chest or abdomen. These symptoms may be an emergency. Get help right away. Call 911. ? Do not wait to see if the symptoms will go away. ? Do not drive yourself to the hospital. Summary ? After the procedure, it is common to have a sore throat, mild stomach discomfort, bloating, and nausea. ? If you were given a sedative during the procedure, it can affect you for several hours. Do not drive until your health care provider says that it is safe. ? Follow instructions from your health care provider about what you may eat and drink. ? Return to your normal activities as told by your health care provider. This information is not intended to replace advice given to you by your health care provider. Make sure you discuss any questions you have with your health care provider. Document Revised: 06/04/2022 Document Reviewed: 06/04/2022 Else[employer] Patient Education ?? 2022 [employer] Hemorrhoids Hemorrhoids are swollen veins in and around the rectum or anus. There are two types of hemorrhoids: ? Internal hemorrhoids. These occur in the veins that are just inside the rectum. They may poke through to the outside and become irritated and painful. ? External hemorrhoids. These occur in the veins that are outside the anus and can be felt as a painful swelling or hard lump near the anus. Most hemorrhoids do not cause serious problems, and they can be managed with home treatments such as diet and lifestyle changes. If home treatments do not help the symptoms, procedures can be done toshrink or remove the hemorrhoids. What are the causes? This condition is caused by increased pressure in the anal area. This pressure may result from various things, including: ? Constipation. ? Straining to have a bowel movement. ? Diarrhea. ? . ? Obesity. ? Sitting for long periods of time. ? Heavy lifting or other activity that causes you to strain. ? Anal sex. ? Riding a bike for a long period of time. What are the signs or symptoms? Symptoms of this condition include: ? Pain. ? Anal itching or irritation. ? Rectal bleeding. ? Leakage of stool (feces). ? Anal swelling. ? One or more lumps around the anus. How is this diagnosed? This condition can often be diagnosed through a visual exam. Other exams or tests may also be done,such as: ? An exam that involves feeling the rectal area with a gloved hand (digital rectal exam). ? An exam of the anal canal that is done using a small tube (anoscope). ? A blood test, if you have lost a significant amount of blood. ? A test to look inside the colon using a flexible tube with a camera on the end (sigmoidoscopy or colonoscopy). How is this treated? This condition can usually be treated at home. However, various procedures may be done if dietary changes, lifestyle changes, and other home treatments do not help your symptoms. These procedures canhelp make the hemorrhoids smaller or remove them completely. Some of these procedures involve surgery, and others do not. Common procedures include: ? Rubber band ligation. Rubber bands are placed at the base of the hemorrhoids to cut off their bloodsupply. ? Sclerotherapy. Medicine is injected into the hemorrhoids to shrink them. ? Infrared coagulation. A type of light energy is used to get rid of the hemorrhoids. ? Hemorrhoidectomy surgery. The hemorrhoids are surgically removed, and the veins that supply them are tied off. ? Stapled hemorrhoidopexy surgery. The surgeon jesus alberto the base of the hemorrhoid to the rectal wall. Follow these instructions at home: Eating and drinking ? Eat foods that have a lot of fiber in them, such as whole grains, beans, nuts, fruits, and vegetables. ? Ask your health care provider about taking products that have added fiber (fiber supplements). ? Reduce the amount of fat in your diet. You can do this by eating low-fat dairy products, eating less red meat, and avoiding processed foods. ? Drink enough fluid to keep your urine pale yellow. Managing pain and swelling ? Take warm sitz baths for 20 minutes, 3???4 times a day to ease pain and discomfort. You may do thisin a bathtub or using a portable sitz bath that fits over the toilet. ? If directed, apply ice to the affected area. Using ice packs between sitz baths may be helpful. ? Put ice in a plastic bag. ? Place a towel between your skin and the bag. ? Leave the ice on for 20 minutes, 2???3 times a day. General instructions ? Take vogo-mmr-nfheqwd and prescription medicines only as told by your health care provider. ? Use medicated creams or suppositories as told. ? Get regular exercise. Ask your health care provider how much and what kind of exercise is best for you. In general, you should do moderate exercise for at least 30 minutes on most days of the week (150 minutes each week). This can include activities such as walking, biking, or yoga. ? Go to the bathroom when you have the urge to have a bowel movement. Do not wait. ? Avoid straining to have bowel movements. ? Keep the anal area dry and clean. Use wet toilet paper or moist towelettes after a bowel movement. ? Do not sit on the toilet for long periods of time. This increases blood pooling and pain. ? Keep all follow-up visits as told by your health care provider. This is important. Contact a health care provider if you have: ? Increasing pain and swelling that are not controlled by treatment or medicine. ? Difficulty having a bowel movement, or you are unable to have a bowel movement. ? Pain or inflammation outside the area of the hemorrhoids. Get help right away if you have: ? Uncontrolled bleeding from your rectum. Summary ? Hemorrhoids are swollen veins in and around the rectum or anus. ? Most hemorrhoids can be managed with home treatments such as diet and lifestyle changes. ? Taking warm sitz baths can help ease pain and discomfort. ? In severe cases, procedures or surgery can be done to shrink or remove the hemorrhoids. This information is not intended to replace advice given to you by your health care provider. Make sure you discuss any questions you have with your health care provider. Document Revised: 09/03/2021 Document Reviewed: 09/04/2021 [email or web address] Patient Education ?? 2022 [employer] Colon Polyps Colon polyps are tissue growths inside the colon, which is part of the large intestine. They are one of the types of polyps that can grow in the body. A polyp may be a round bump or a mushroom-shapedgrowth. You could have one polyp or more than one. Most colon polyps are noncancerous (benign). However, some colon polyps can become cancerous over time. Finding and removing the polyps early can help prevent this. What are the causes? The exact cause of colon polyps is not known. What increases the risk? The following factors may make you more likely to develop this condition: ? Having a family history of colorectal cancer or colon polyps. ? Being older than 45 years of age. ? Being younger than 45 years of age and having a significant family history of colorectal cancer or colon polyps or a genetic condition that puts you at higher risk of getting colon polyps. ? Having inflammatory bowel disease, such as ulcerative colitis or Crohn's disease. ? Having certain conditions passed from parent to child (hereditary conditions), such as: ? Familial adenomatous polyposis (FAP). ? Rodarte syndrome. ? Turcot syndrome. ? Peutz???Jeghers syndrome. ? MUTYH-associated polyposis (MAP). ? Being overweight. ? Certain lifestyle factors. These include smoking cigarettes, drinking too much alcohol, not gettingenough exercise, and eating a diet that is high in fat and red meat and low in fiber. ? Having had childhood cancer that was treated with radiation of the abdomen. What are the signs or symptoms? Many times, there are no symptoms. If you have symptoms, they may include: ? Blood coming from the rectum during a bowel movement. ? Blood in the stool (feces). The blood may be bright red or very dark in color. ? Pain in the abdomen. ? A change in bowel habits, such as constipation or diarrhea. How is this diagnosed? This condition is diagnosed with a colonoscopy. This is a procedure in which a lighted, flexible scope is inserted into the opening between the buttocks (anus) and then passed into the colon to examine the area. Polyps are sometimes found when a colonoscopy is done as part of routine cancer screening tests. How is this treated? This condition is treated by removing any polyps that are found. Most polyps can be removed during a colonoscopy. Those polyps will then be tested for cancer. Additional treatment may be needed depending on the results of testing. Follow these instructions at home: Eating and drinking ? Eat foods that are high in fiber, such as fruits, vegetables, and whole grains. ? Eat foods that are high in calcium and vitamin D, such as milk, cheese, yogurt, eggs, liver, fish, and broccoli. ? Limit foods that are high in fat, such as fried foods and desserts. ? Limit the amount of red meat, precooked or cured meat, or other processed meat that you eat, such as hot dogs, sausages, esposito, or meat loaves. ? Limit sugary drinks. Lifestyle ? Maintain a healthy weight, or lose weight if recommended by your health care provider. ? Exercise every day or as told by your health care provider. ? Do not use any products that contain nicotine or tobacco, such as cigarettes, e- cigarettes, and chewing tobacco. If you need help quitting, ask your health care provider. ? Do not drink alcohol if: ? Your health care provider tells you not to drink. ? You are , may be , or are planning to become . ? If you drink alcohol: ? Limit how much you use to: ? 0???1 drink a day for women. ? 0???2 drinks a day for men. ? Know how much alcohol is in your drink. In the [place] one drink equals one 12 oz bottle of beer (355mL), one 5 oz glass of wine (148 mL), or one 1?? oz glass of hard liquor (44 mL). General instructions ? Take cbde-cgm-nsjgomp and prescription medicines only as told by your health care provider. ? Keep all follow-up visits. This is important. This includes having regularly scheduled colonoscopies. Talk to your health care provider about when you need a colonoscopy. Contact a health care provider if: ? You have new or worsening bleeding during a bowel movement. ? You have new or increased blood in your stool. ? You have a change in bowel habits. ? You lose weight for no known reason. Summary ? Colon polyps are tissue growths inside the colon, which is part of the large intestine. They are one type of polyp that can grow in the body. ? Most colon polyps are noncancerous (benign), but some can become cancerous over time. ? This condition is diagnosed with a colonoscopy. ? This condition is treated by removing any polyps that are found. Most polyps can be removed during a colonoscopy. This information is not intended to replace advice given to you by your health care provider. Make sure you discuss any questions you have with your health care provider. Document Revised: 06/13/2020 Document Reviewed: 06/13/2020 [employer] Patient Education ?? 2022 [employer]. Colonoscopy, Adult, Care After The following information offers guidance on how to care for yourself after your procedure. Your health care provider may also give you more specific instructions. If you have problems or questions, contact your health care provider. What can I expect after the procedure? After the procedure, it is common to have: ? A small amount of blood in your stool for 24 hours after the procedure. ? Some gas. ? Mild cramping or bloating of your abdomen. Follow these instructions at home: Eating and drinking ? Drink enough fluid to keep your urine pale yellow. ? Follow instructions from your health care provider about eating or drinking restrictions. ? Resume your normal diet as told by your health care provider. Avoid heavy or fried foods that are hard to digest. Activity ? Rest as told by your health care provider. ? Avoid sitting for a long time without moving. Get up to take short walks every 1???2 hours. This isimportant to improve blood flow and breathing. Ask for help if you feel weak or unsteady. ? Return to your normal activities as told by your health care provider. Ask your health care provider what activities are safe for you. Managing cramping and bloating ? Try walking around when you have cramps or feel bloated. ? If directed, apply heat to your abdomen as told by your health care provider. Use the heat source that your health care provider recommends, such as a moist heat pack or a heating pad. ? Place a towel between your skin and the heat source. ? Leave the heat on for 20???30 minutes. ? Remove the heat if your skin turns bright red. This is especially important if you are unable to feel pain, heat, or cold. You have a greater risk of getting burned. General instructions ? If you were given a sedative during the procedure, it can affect you for several hours. Do not drive or operate machinery until your health care provider says that it is safe. ? For the first 24 hours after the procedure: ? Do not sign important documents. ? Do not drink alcohol. ? Do your regular daily activities at a slower pace than normal. ? Eat soft foods that are easy to digest. ? Take esyl-fcu-noujgya and prescription medicines only as told by your health care provider. ? Keep all follow-up visits. This is important. Contact a health care provider if: ? You have blood in your stool 2???3 days after the procedure. Get help right away if: ? You have more than a small spotting of blood in your stool. ? You have large blood clots in your stool. ? You have swelling of your abdomen. ? You have nausea or vomiting. ? You have a fever. ? You have increasing pain in your abdomen that is not relieved with medicine. These symptoms may be an emergency. Get help right away. Call 911. ? Do not wait to see if the symptoms will go away. ? Do not drive yourself to the hospital. Summary ? After the procedure, it is common to have a small amount of blood in your stool. You may also have mild cramping and bloating of your abdomen. ? If you were given a sedative during the procedure, it can affect you for several hours. Do not drive or operate machinery until your health care provider says that it is safe. ? Get help right away if you have a lot of blood in your stool, nausea or vomiting, a fever, or increased pain in your abdomen. This information is not intended to replace advice given to you by your health care provider. Make sure you discuss any questions you have with your health care provider. Document Revised: 10/16/2021 Document Reviewed: 10/16/2021 Elsevier Patient Education ?? 2022 [employer] Patient/Sewer Cleaner Signature Patient Name:MINDY CODY I have received this information and my questions have been answered. Patient/Sewer Cleaner Name: Patient/Sewer Cleaner Signature: Relationship to Patient: Witness Name/Signature: Date: Electronically Signed on: 07/08/2023 08:13 EDTSigned by:EULA History and physical note * Eduin Urena MD: PERFORM Event Display: History and Physical Authored Date: [id number] MINDY CODY :1980 Age:43 years Sex:Female Visit Date:07/08/2023 Primary Care Physician: ASIYA HUYNH History of Present Illness 43-year-old female with chronic dyspepsia,??diarrhea with lower abdominal pain, she is status postcholecystectomy.?? She complains of intermittent bright red blood per rectum. ??No first-degree relatives with colorectal cancer.?Previous EGD and colonoscopy were unremarkable. Physical Exam Vitals & Measurements T:??36.4?C ??(Temporal Artery)?? HR:??94??(Monitored)?? RR:??18?? BP:??151/99?? SpO2:??96%?? HT:??170.18??cm?? WT:??88.9??kg?? BMI:??30.7?? Pain Score:??7?? Obese white female no acute distress Lungs: Clear to auscultation bilaterally Heart: Regular rhythm S1-S2 Abdomen:??Soft diffuse tenderness without peritoneal signs Assessment/Plan 1.??Diarrhea??R19.7 ??EGD and colonoscopy today. ??High probability of disordered gut brain interaction as the etiologyof her symptoms. 2.??Hematochezia??K92.1 3.??Dyspepsia??R10.13 Orders: sodium chloride 0.9% flush, 10 mL, IV Flush, Injection, every 8 hr, First Dose: 07/08/23 7:00:00 EDT, Routine sodium chloride 0.9% flush, 10 mL, IV Flush, Injection, As Directed, First Dose: 07/08/23 6:10:00 EDT, Physician Stop, Routine Sodium Chloride 0.9% 1,000 mL, Total Volume (mL): 1,000, 1,000 mL, Soln-IV, IV, 50 mL/hr, Start Date: 07/08/23 6:10:00 EDT, 89 kg, Populate Charting Weight From Order, 2.05, m2 Blood Glucose Monitoring POC RE, 07/08/23 6:10:00 EDT, Stop date 07/08/23 6:10:00 EDT Diet Order, 07/08/23 6:10:00 EDT, Regular Discharge Patient, 07/08/23 6:10:00 EDT, Discharge when stable per SDS criteria Discharge Patient, 07/08/23 6:10:00 EDT, Discharge when stable per anesthesia criteria Discharge Patient Instructions, It is important that a responsible adult drive you home today Discharge Patient Instructions, Do not sign any contracts, make any major decisions, or drive or operate machinery for 24 hours Discharge Patient Instructions, You should not be responsible for the care of others Discharge Patient Instructions, Avoid alcohol, tranquilizers, sleeping pills, or cold medicines for24 hours Discharge Patient Instructions, Call or come to emergency department if having unusual pain or severe abdominal pain Discharge Patient Instructions, You may resume your normal activity in 24 hours Discharge Patient Instructions, Call or come to emergency department if vomiting blood or having black bowel movements, rectal bleeding or passing blood clots Discharge Patient Instructions, Call or come to emergency department for dizziness Discharge Patient Instructions, Call or come to emergency department chest pain, or shortness of breath Discharge Patient Instructions, Call or come to emergency department for fever greater than 100 ??F Discharge Patient Instructions, Call with any additional questions or concerns Discharge Patient Instructions, You may experience some gas cramps and abdominal bloating Discharge Patient Instructions, Cramping and abdominal bloating should subside in 1 hour or so Discharge Patient Instructions, Passing gas rectally and belching is normal Discharge Patient Instructions, A light first meal may feel better in your stomach Obtain consent, 07/08/23 6:10:00 EDT, Constant Order, 07/08/23 6:10:00 EDT Peripheral IV Insertion, 07/08/23 6:10:00 EDT Saline Lock Convert From IV, 07/08/23 6:10:00 EDT, Stop date 07/08/23 6:10:00 EDT Vital Signs, 07/08/23 6:10:00 EDT, Once, Stop date 07/08/23 6:10:00 EDT Vital Signs, 07/08/23 6:10:00 EDT, Stop date 07/08/23 6:10:00 EDT, Routine Vital Signs, 07/08/23 6:10:00 EDT, Stop date 07/08/23 6:10:00 EDT, As needed Problem List/Past Medical History Ongoing ADD (attention deficit disorder) Asthma Calculus of kidney and ureter Conversion disorder Diabetes Diarrhea Epigastric pain GERD (gastroesophageal reflux disease) Hematochezia Hx of ovarian cancer Hydronephrosis Hypertension IBS (irritable bowel syndrome) Insomnia Migraines Papillomavirus, human Psychophysiologic disorder PTSD (post-traumatic stress disorder) Seizure disorder Sleep apnea Tobacco user Unintentional weight loss Historical No qualifying data Procedure/Surgical History ???Ovarian cystectomy (10/18/2022)???Laparoscopic hysterectomy (11/07/2021)???Carpal tunnel release(01/23/2020)???Appendectomy???Arthroscopy of knee???Arthroscopy of knee???Cholecystectomy???Percutaneous nephrolithotomy???Surgery Medications Inpatient Sodium Chloride 0.9% 1,000 mL, 1000 mL, IV sodium chloride 0.9% flush, 10 mL, IV Flush, every 8 hr sodium chloride 0.9% flush, 10 mL, IV Flush, As Directed Home albuterol 90 mcg/inh aerosol inhaler, 1 puffs, Inhale, every 6 hr, PRN amitriptyline 25 mg oral tablet, 50 mg= 2 tab, Oral, every night at bedtime estradiol 1 mg oral tablet, 1 mg= 1 tab, Oral, Daily Flovent HFA 44 mcg/inh inhalation aerosol, 2 puffs, Inhale, BID lamoTRIgine 200 mg oral tablet, 200 mg= 1 tab, Oral, Daily naloxone 4 mg/0.1 mL nasal spray, 1 sprays, Nasal - Both Sides, Once, PRN oxyCODONE 5 mg oral capsule, 5 mg= 1 cap, Oral, every 6 hr, PRN pantoprazole 40 mg oral delayed release tablet, 40 mg= 1 tab, Oral, Daily potassium chloride 20 mEq oral tablet, extended release, 20 mEq= 1 tab, Oral, Daily QUEtiapine 25 mg oral tablet sucralfate 1 g oral tablet zolpidem, 12.5 mg, Oral, every night at bedtime Allergies codeine??(Vomiting) ibuprofen??(Vomiting) morphine??(Vomiting) traMADol??(Vomiting) Adhesive Bandage??(Skin irritation, Unknown) Social History Alcohol Never Electronic Cigarette/Vaping Electronic Cigarette Use: Never. Substance Use Never Tobacco Current everyday tobacco user Tobacco Use:. Family History Family history is unknown Lab Results Test Name Test Result Date/Time Glucose POC 144 07/08/2023 06:55 EDT Electronically Signed on 07/08/23 07:11 AM Eduin Urena MD Patient Care team information Care Team Personnel Name: ASIYA HUYNH Position: No Access Member Role: Primary Care Physician Address: Address: [facility] - [address] [place] [phone]
--- NOTE | 2023-08-30 21:28 | W.ED.GENAD ---
Discharge Plan Disposition Patient Disposition: Home Condition: Improving Discharge Details Chief Complaint: Abd Prob Clinical Impression: Abdominal pain Primary Care Provider: Elizabeth Benton ED Provider: Nicholas Vásquez Home Meds and New Rx's Prescriptions: No Action amitriptyline 25 mg tablet 25 mg PO HS chlorthalidone 25 mg tablet 25 mg PO DAILY Qty: 90 3RF Hold Instructions: Changed by Provider naloxone [Narcan] 4 mg/actuation spray,non-aerosol 1 spray LOGAN ONCE PRN fluticasone propionate [Flovent HFA] 44 mcg/actuation HFA aerosol inhaler 2 puff inhalation BID Rx Instructions: administer with spacer verapamil 120 mg tablet 120 mg PO Q12H omeprazole 40 mg capsule,delayed release(DR/EC) 40 mg PO DAILY metoprolol succinate 100 mg tablet extended release 24 hr 100 mg PO DAILY metformin 500 mg tablet extended release 24 hr 500 mg PO DAILY colchicine 0.6 mg capsule 0.6 mg PO BID oxycodone 5 mg tablet 5 mg PO 5X/DAY Patient Comments: TAKE 2 TABLETS BY MOUTH FIVE TIMES DAILY lamotrigine 150 mg tablet 200 mg PO HS Patient Comments: TAKE 1 TABLET BY MOUTH EVERY DAY AT BEDTIME pantoprazole 40 mg tablet,delayed release (DR/EC) 40 mg PO DAILY Patient Comments: TAKE 1 TABLET BY MOUTH ONCE DAILY albuterol sulfate [ProAir HFA] 90 mcg/actuation HFA aerosol inhaler 2 puff INHALATION PRN PRN Patient Comments: INL 2 PFS PO Q 4 H PRN zolpidem 12.5 mg tablet,ext release multiphase 12.5 mg PO HS Patient Comments: TAKE 1 TABLET BY MOUTH EVERY DAY AT BEDTIME ondansetron 4 mg tablet,disintegrating 4 mg PO Q8H PRN (Reason: nausea and vomiting) Qty: 30 0RF estradiol 1 mg tablet 1 mg PO DAILY Patient Comments: TAKE 1 TABLET BY MOUTH DAILY potassium 20 mg tablet,chewable 200 mg PO DAILY Discharge Instructions Instructions: Abdominal Pain, Adult ED HPI General Date/Time Provider Initiated Documentation: 08/30/23 21:09. HPI Narrative: 43-year-old female presents with flank abdominal discomfort over the last week worsening tonight, history of kidney stones requiring lithotripsy in the past Related Data Home Medications Medication Instructions Recorded Confirmed naloxone 4 mg/actuation nasal 1 spray intranasal ONCE PRN 04/19/18 04/16/23 spray (Narcan) amitriptyline 25 mg tablet 25 mg PO HS 04/18/20 04/16/23 albuterol sulfate 90 mcg/actuation 2 puff inhalation PRN PRN 05/14/20 04/16/23 aerosol inhaler (ProAir HFA) pantoprazole 40 mg tablet,delayed 40 mg PO DAILY 05/14/20 04/16/23 release zolpidem 12.5 mg tablet,extended 12.5 mg PO HS 05/14/20 04/16/23 release,multiphase fluticasone propionate 44 2 puff inhalation BID 06/21/20 04/16/23 mcg/actuation HFA aerosol inhaler (Flovent HFA) oxycodone 5 mg tablet 5 mg PO 5X/DAY 11/19/20 04/16/23 lamotrigine 150 mg tablet 200 mg PO HS 12/07/20 04/16/23 chlorthalidone 25 mg tablet 25 mg PO DAILY #90 tabs 12/31/21 04/16/23 ondansetron 4 mg disintegrating 4 mg PO Q8H PRN nausea and 09/15/22 04/16/23 tablet vomiting #30 tabs estradiol 1 mg tablet 1 mg PO DAILY 11/21/22 04/16/23 potassium 20 mg chewable tablet 200 mg PO DAILY 03/16/23 04/16/23 colchicine 0.6 mg capsule 0.6 mg PO BID 06/19/23 metformin 500 mg tablet,extended 500 mg PO DAILY 06/19/23 release 24 hr metoprolol succinate 100 mg 100 mg PO DAILY 06/19/23 tablet,extended release 24 hr omeprazole 40 mg capsule,delayed 40 mg PO DAILY 06/19/23 release verapamil 120 mg tablet 120 mg PO Q12H 06/19/23 Previous Rx's Medication Instructions Recorded chlorthalidone 25 mg tablet 25 mg PO DAILY #90 tabs 12/31/21 ondansetron 4 mg disintegrating 4 mg PO Q8H PRN nausea and 09/15/22 tablet vomiting #30 tabs Allergies Allergy/AdvReac Type Severity Reaction Status Date / Time labetalol AdvReac Intermediate nausea and Verified 04/16/23 17:48 vomiting lisdexamfetamine AdvReac Intermediate hypertensio Verified 04/16/23 17:48 [From Vyvanse] n prednisone AdvReac Intermediate It makes Verified 04/16/23 17:48 me feel weird codeine AdvReac Mild Nausea Verified 04/16/23 17:48 morphine AdvReac Mild Nausea Verified 04/16/23 17:48 tramadol HCl [From Ultram] AdvReac Mild Nausea Verified 04/16/23 17:48 cariprazine [From Vraylar] AdvReac Unknown vomiting Verified 04/16/23 17:48 tamsulosin [From Flomax] AdvReac light Verified 04/16/23 17:48 headed/dizzy tegaderm tape AdvReac Intermediate ariza my Uncoded 04/16/23 17:48 skin General Stated Complaint: Abd Prob JEOL: 3 Review of Systems Narrative: Review of Systems Constitutional: negative Eyes: negative ENT: negative Cardiovascular: negative Respiratory: negative Gastrointestinal: Flank pain abdominal pain : negative Musculoskeletal: negative Skin: negative Neurologic: negative Psych: negative Exam Narrative Exam Narrative: Physical Examination General: alert, awake, cooperative HEENT: normocephalic, atraumatic; PERRL, EOM intact, conjunctiva normal; no nasal discharge; moist mucous membranes, oral and pharyngeal mucosa normal, tolerating secretions Neck: supple, trachea midline; full ROM Chest: normal to inspection Respiratory: normal respiratory effort, speaking in full sentences, clear to auscultation, no wheezing, rales or rhonchi Cardiac: regular rate, regular rhythm, S1S2 intact, no murmurs rubs or gallops GI: abdomen soft, non-tender, non-distended; no palpable mass or hepatosplenomegaly Skin: no lesions, rashes or trauma appreciated Neuro: AAOx3, normal speech, moving all extremities Psych: Appropriate mood and affect Course Vital Signs Vital signs: Vital Signs Temperature 36.7 C 08/30/23 21:07 Pulse 108 H 08/30/23 21:07 Respiratory Rate 16 08/30/23 21:07 Blood Pressure 170/119 H 08/30/23 21:07 Pulse Oximetry 93 08/30/23 21:07 Temperature 36.7 C 08/30/23 21:07 Pulse 108 H 08/30/23 21:07 Respiratory Rate 16 08/30/23 21:07 Respiratory Effort Normal, Non-Labored 08/30/23 21:12 Blood Pressure 170/119 H 08/30/23 21:07 Pulse Oximetry 93 08/30/23 21:07 Oxygen Delivery Method Room Air 08/30/23 21:07 Oxygen Flow Rate 0 08/30/23 21:07 Pain Level 9 08/30/23 21:07 Medical Decision Making 43-year-old female history of recurrent kidney stones presents with flank pain abdominal pain over the last couple of days worsening this evening had to be tachycardic moderately uncomfortable on examination nonperitoneal afebrile nontoxic. Consider nephrolithiasis versus UTI versus less likely pyelonephritis lower suspicion for cholecystitis or appendicitis given patient has had both remove muscles consider colitis or enteritis. Screening labs urinalysis analgesia anti-inflammatory fluids close reassessment 22: 36 patient resting comfortably no acute distress. No RBCs or WBCs leuk esterase or nitrate in urine. Mild leukocytosis on labs. Nonperitoneal no vomiting improved after meds. Patient feels comfortable following up as an outpatient. Home care instruction return precautions Quality:SDOH Health Related Social Needs: No Data to Display PFSH All Active Problems (Updated 08/30/23 @ 22:37 by Nicholas Vásquez MD) Abdominal pain (Acute) Right foot pain (Acute) Postoperative pain (Acute) S/P laparoscopic assisted vaginal hysterectomy (LAVH) (Acute) Bilateral kidney stones (Acute) 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 L>R side. Normal CT & u/s of abdomen and pelvis. 05/01/21. Rx Cipro and Flagyl times 2W Constipation (Acute) Bipolar 1 disorder (Chronic) Borderline personality disorder (Acute) ANN (obstructive sleep apnea) (Chronic) Chronic GERD (Chronic) Acute diarrhea (Acute) Colitis (Acute) DVT prophylaxis (Acute) Medical History Abdominal pain Active asthma ADD (attention deficit disorder) Adnexal mass Amenorrhea Amnesia Pt. states when she gets too stressed out she blacks out, Last one was months ago' ASCUS with positive high risk HPV 09/2020. Will f/u at [facility] for colposcopy after issue with RLQ pain is addressed. ASCUS with positive high risk HPV 09/2020. Patient needs colposcopy Asthma Atypical squamous cells of undetermined significance with positive high risk human papillomavirus Calculus of kidney and ureter Carpal tunnel syndrome Causalgia of left upper extremity Cervical disc disease Cervical disc disorder with radiculopathy Chest pain at rest pt. denies this Chronic wrist pain Cold sore Conversion disorder tremor, stutter, weakness CVA tenderness Dizziness Elevated fasting blood sugar Essential tremor Gastritis GERD (gastroesophageal reflux disease) History of urinary stone Carcamo sign present Human papilloma virus (HPV) DNA test positive Hydronephrosis IBS (irritable bowel syndrome) Insomnia Irritable bowel syndrome with diarrhea Kidney stones Knee pain Left-sided thoracic back pain Median nerve compression in left forearm Medication management Medication monitoring encounter Memory loss Migraines Neuralgia Nicotine dependence Numbness and tingling Pain in pelvis Post-cholecystectomy syndrome post casey diarrhea Preop examination Psychophysiologic disorder PTSD (post-traumatic stress disorder) Rectal bleeding Right arm weakness Right ureteral stone Seizure (~04/14/18) Pt. stated she had one one time 5 years ago, and has never had once since Seizure disorder Snoring Spasm of back muscles Upper respiratory infection pt. denies this Ureteral calculi Surgical History Carpal tunnel syndrome, left s/p left ECTR DOS: 01/23/20 H/O left knee surgery H/O ovarian cystectomy 10/18/2020. Laparoscopic right ovarian cystectomy for persistent 4 cm right ovarian cyst. History of carpal tunnel surgery of left wrist History of colonoscopy (~07/09/20) Repair of umbilical hernia S/P appendectomy S/P cholecystectomy S/P knee surgery Family History Father Cerebral aneurysm Social History (Updated 06/19/23 @ 09:48 by Patricia Coronel) Smoking/Tobacco Use Status: Current every day Tobacco Type: cigarettes Smoking packs per day: 0.5 Smoking cigarettes per day: 10.0 Years smoked: 30 Smoking pack-years: 15.00 Smokeless tobacco user: other Quit status: has quit before Smoking risk assessment performed?: Yes Alcohol Intake: never Drug use: Never Substance use type: does not use Household members: significant other and other Details: BF-Tanner. S-Chance. Moved to [place] 2mo ago to be w/ GF. Number of Children: 1 current occupation: Unemployed secondary to disability Current gender identity: female Do you feel safe at home: Yes Do you feel safe in your relationship?: Yes Female Reproductive History Menstrual Duration of menses: 3-5 days (Average flow minimal dysmenorrhea) control method: none
[2023-08-30 21:31] LABS: HCT 41.6 % (36.0-46.0); HGB 13.9 g/dL (11.2-15.7); MCH 30.5 pg (27.0-33.0); MCHC 33.4 % (32.0-36.0); MCV 91 fL (80-95); Platelet Count 358 10^3/uL (130-400); RBC 4.56 10^6/uL (3.93-5.22); RDW 13.2 % (11.7-14.6); RDW-SD 44.6 fL; WBC 14.71 10^3/uL (4.4-10.8)
[2023-08-30] MEDS: fentaNYL 100 MCG/2 ML VIAL 50 MCG IVP ×2 (21:35→21:58)
[2023-08-30] MEDS: Ondansetron 4 MG/2 ML VIAL IVP (21:36)
[2023-08-30] MEDS: Ketorolac 15 MG/ML VIAL IVP (21:36)
[2023-08-30] MEDS: Normal Saline 1,000 ML 1000 ML IV (21:36)
[2023-08-30 21:38] LABS: Bilirubin Negative (Negative); Blood Negative (Negative); Clarity Clear (Clear); Glucose Negative (Negative); Ketones Negative (Negative); Leukocyte Esterase Negative (Negative); Nitrite Negative (Negative); Specific Gravity >= 1.030 (1.005-1.025); Urobilinogen 0.2 mg/dL (Up to 0.2); pH 5.5 (5-8)
[2023-08-30 21:46] LABS: ALT 50 U/L (14-59); AST 36 U/L (15-37); Albumin 3.9 g/dL (3.4-5.0); Alkaline Phosphatase 167 U/L (46-116); Anion Gap 13.4 mmol/L (3-11); BUN 17 mg/dL (7-18); Bilirubin, Total 0.23 mg/dL (0.2-1.0); CO2 24.6 mmol/L (21.0-32.0); CREATININE 1.4 mg/dL (0.55-1.02); Calcium 9.5 mg/dL (8.5-10.1); Chloride 101 mmol/L (98-107); Estimated GFR 47.28 (mL/min/1.73m2); Glucose 174 mg/dL (74-106); Potassium 3.9 mmol/L (3.5-5.1); Sodium 139 mmol/L (136-145); Total Protein 8.4 g/dL (6.4-8.2)
[2023-08-30 21:47] LABS: Bacteria Negative HPF (Negative); Crystals Negative HPF (Negative); Epithelial Cells Moderate HPF (Negative); Mucus Negative (Negative); RBC Negative HPF (0-2); WBC 0-2 HPF (0-5)
[2023-08-30 21:48] LABS: C & S Indicated? No; Casts 5-10 Hyaline LPF (Negative)
[2023-08-30 21:53] LABS: Absolute Lymphocyte Count 3.82 10^3/uL (1.2-3.4); Absolute Monocyte Count 0.88 10^3/uL (0.1-0.8); Absolute Neutrophil Count 9.86 10^3/uL (1.2-6.7); Atypical Lymphocytes % 1 %
[2023-08-30 21:54] LABS: Absolute Eosinophil Count 0.15 10^3/uL (0.0-0.7); Diff Comment Manual Differential; RBC Morphology Normal
[2023-08-30] MEDS: Ondansetron O.D.T. 4 MG TABEF, 3 TABS/BTL PO (22:44)
== END 2023-08-30 22:44 | disposition home or self-care (01) ==
PROVIDERS: Emergency Provider Emergency Medicine; PCP Physician Assistant Medical
DX: R10.9 Unspecified abdominal pain (principal); I10 Essential (primary) hypertension; F17.210 Nicotine dependence, cigarettes, uncomplicated
CPT/HCPCS: 80053; 96374; 96375; 99284; 81003; 81015; 85025; 99283; J1885; J2405; J3010

== ENCOUNTER 2023-09-30 16:41 | Emergency (ER) | payer MEDICAID, SELFPAY ==
[2023-09-30] VITALS (11 sets, daily range): BP systolic 142–169; BP diastolic 95–111; PULSE 82–104; RESP 12–23; TEMP 36.9; O2SAT 95–98
[2023-09-30 17:22] LABS: Abs Immature Grans 0.03 10^3/uL (0.0-0.06); Absolute Basophil Count 0.09 10^3/uL (0.0-0.2); Absolute Eosinophil Count 0.36 10^3/uL (0.0-0.7); Absolute Monocyte Count 0.56 10^3/uL (0.1-0.8); Absolute Neutrophil Count 6.21 10^3/uL (1.2-6.7); Basophils % 0.9 %; Eosinophils % 3.5 %; HCT 44.3 % (36.0-46.0); HGB 14.8 g/dL (11.2-15.7); Immature Grans % 0.3 %; Lymphocytes % 28.6 %; MCHC 33.4 % (32.0-36.0); MCV 93 fL (80-95); MPV 9.8 fL (8.0-11.0); Monocytes % 5.5 %; Neutrophils % 61.2 %; Platelet Count 323 10^3/uL (130-400); RBC 4.78 10^6/uL (3.93-5.22); RDW 13.1 % (11.7-14.6); RDW-SD 44.7 fL; WBC 10.15 10^3/uL (4.4-10.8)
[2023-09-30 17:24] LABS: Bilirubin Negative (Negative); Blood Negative (Negative); Clarity Clear (Clear); Glucose Negative (Negative); Ketones Negative (Negative); Leukocyte Esterase Negative (Negative); Nitrite Negative (Negative); Urobilinogen 0.2 mg/dL (Up to 0.2); pH 5.5 (5-8)
[2023-09-30] MEDS: Ketorolac 15 MG/ML VIAL 10 MG IVP (17:28)
[2023-09-30] MEDS: Normal Saline Flush 10 ML SYR IVP (17:28)
[2023-09-30] MEDS: Ondansetron 4 MG/2 ML VIAL IVP (17:29)
[2023-09-30 17:35] LABS: Bacteria Rare HPF (Negative); C & S Indicated? No/Sq. Contamination; Casts Negative LPF (Negative); Crystals Negative HPF (Negative); Epithelial Cells Many HPF (Negative); Mucus Negative (Negative); RBC Negative HPF (0-2); WBC 0-2 HPF (0-5)
[2023-09-30 17:37] LABS: ALT 42 U/L (14-59); AST 33 U/L (15-37); Alkaline Phosphatase 164 U/L (46-116); Anion Gap 11.6 mmol/L (3-11); BUN 14 mg/dL (7-18); Bilirubin, Total 0.32 mg/dL (0.2-1.0); CO2 25.4 mmol/L (21.0-32.0); CREATININE 1.3 mg/dL (0.55-1.02); Calcium 9.6 mg/dL (8.5-10.1); Chloride 101 mmol/L (98-107); Estimated GFR 51.68 (mL/min/1.73m2); Glucose 160 mg/dL (74-106); Potassium 3.8 mmol/L (3.5-5.1); Sodium 138 mmol/L (136-145); Total Protein 8.5 g/dL (6.4-8.2)
[2023-09-30 17:42] LABS: Lactate 2.5 mmol/L (0.6-1.4)
[2023-09-30] MEDS: Normal Saline 10 ML VIAL IJ (17:46)
[2023-09-30] MEDS: Normal Saline 1,000 ML 1000 ML IV (17:46)
[2023-09-30] MEDS: Droperidol 5 MG/2 ML VIAL IVP (17:59)
[2023-09-30 18:26] LABS: Procalcitonin < 0.1 ng/mL
--- NOTE | 2023-09-30 20:15 | W.ED.GENAD ---
Discharge Plan Disposition Patient Disposition: Against Medical Advice Condition: Stable Discharge Details Clinical Impression: Abdominal pain Primary Care Provider: Elizabeth Benton ED Provider: Jessica Mcallister Home Meds and New Rx's Prescriptions: No Action amitriptyline 25 mg tablet 25 mg PO HS chlorthalidone 25 mg tablet 25 mg PO DAILY Qty: 90 3RF naloxone [Narcan] 4 mg/actuation spray,non-aerosol 1 spray LOGAN ONCE PRN fluticasone propionate [Flovent HFA] 44 mcg/actuation HFA aerosol inhaler 2 puff inhalation BID Rx Instructions: administer with spacer verapamil 120 mg tablet 120 mg PO Q12H omeprazole 40 mg capsule,delayed release(DR/EC) 40 mg PO DAILY metoprolol succinate 100 mg tablet extended release 24 hr 100 mg PO DAILY metformin 500 mg tablet extended release 24 hr 500 mg PO DAILY colchicine 0.6 mg capsule 0.6 mg PO BID oxycodone 5 mg tablet 5 mg PO 5X/DAY Patient Comments: TAKE 2 TABLETS BY MOUTH FIVE TIMES DAILY lamotrigine 150 mg tablet 200 mg PO HS Patient Comments: TAKE 1 TABLET BY MOUTH EVERY DAY AT BEDTIME pantoprazole 40 mg tablet,delayed release (DR/EC) 40 mg PO DAILY Patient Comments: TAKE 1 TABLET BY MOUTH ONCE DAILY albuterol sulfate [ProAir HFA] 90 mcg/actuation HFA aerosol inhaler 2 puff INHALATION PRN PRN Patient Comments: INL 2 PFS PO Q 4 H PRN zolpidem 12.5 mg tablet,ext release multiphase 12.5 mg PO HS Patient Comments: TAKE 1 TABLET BY MOUTH EVERY DAY AT BEDTIME ondansetron 4 mg tablet,disintegrating 4 mg PO Q8H PRN (Reason: nausea and vomiting) Qty: 30 0RF estradiol 1 mg tablet 1 mg PO DAILY Patient Comments: TAKE 1 TABLET BY MOUTH DAILY potassium 20 mg tablet,chewable 200 mg PO DAILY Discharge Instructions Instructions: Abdominal Pain, Adult ED Additional Instructions: You have decided to leave the emergency department AGAINST MEDICAL ADVICE. The plan was to continue fluid resuscitation, pain control and transfer you to another hospital to complete your workup with a CT evaluation. Unfortunately we are unable to get a CT scan at this hospital at this time. You are declining to be transferred to another hospital and would like to leave at this time. You have the capacity to make this medical decision but it is against my advice Your blood work indicated a significantly elevated lactic acid which can be a marker for intra-abdominal process causing your pain Please return to the emergency department at any time to resume your workup or follow-up with your primary care provider for reevaluation of ongoing symptoms. HPI General Date/Time Provider Initiated Documentation: 09/30/23 17:01. Limitations to Documentation: no limitations. Information obtained by: patient. HPI Narrative: 43-year-old female with past medical history of hysterectomy, complex regional pain syndrome, hypertension, bipolar disorder presents for evaluation of abdominal pain. She reports that the abdominal pain has been going on for 2 weeks. Pain is constant, progressively worsening. Pain associated with nausea, no vomiting, has had poor oral intake. Denies any dysuria or hematuria. Reports decreased bowel movements. States last bowel movement was yesterday. Has not had any today. Thinks that she may have passed gas at some point today. Pain is localized to the right lower quadrant, does not radiate. Related Data Home Medications ?Medication ?Instructions ?Recorded ?Confirmed naloxone 4 mg/actuation nasal 1 spray intranasal ONCE PRN 04/19/18 04/16/23 spray (Narcan) amitriptyline 25 mg tablet 25 mg PO HS 04/18/20 04/16/23 albuterol sulfate 90 mcg/actuation 2 puff inhalation PRN PRN 05/14/20 04/16/23 aerosol inhaler (ProAir HFA) pantoprazole 40 mg tablet,delayed 40 mg PO DAILY 05/14/20 04/16/23 release zolpidem 12.5 mg tablet,extended 12.5 mg PO HS 05/14/20 04/16/23 release,multiphase fluticasone propionate 44 2 puff inhalation BID 06/21/20 04/16/23 mcg/actuation HFA aerosol inhaler (Flovent HFA) oxycodone 5 mg tablet 5 mg PO 5X/DAY 11/19/20 04/16/23 lamotrigine 150 mg tablet 200 mg PO HS 12/07/20 04/16/23 chlorthalidone 25 mg tablet 25 mg PO DAILY #90 tabs 12/31/21 04/16/23 ondansetron 4 mg disintegrating 4 mg PO Q8H PRN nausea and 09/15/22 04/16/23 tablet vomiting #30 tabs estradiol 1 mg tablet 1 mg PO DAILY 11/21/22 04/16/23 potassium 20 mg chewable tablet 200 mg PO DAILY 03/16/23 04/16/23 colchicine 0.6 mg capsule 0.6 mg PO BID 06/19/23 metformin 500 mg tablet,extended 500 mg PO DAILY 06/19/23 release 24 hr metoprolol succinate 100 mg 100 mg PO DAILY 06/19/23 tablet,extended release 24 hr omeprazole 40 mg capsule,delayed 40 mg PO DAILY 06/19/23 release verapamil 120 mg tablet 120 mg PO Q12H 06/19/23 Previous Rx's ?Medication ?Instructions ?Recorded chlorthalidone 25 mg tablet 25 mg PO DAILY #90 tabs 12/31/21 ondansetron 4 mg disintegrating 4 mg PO Q8H PRN nausea and 09/15/22 tablet vomiting #30 tabs Allergies Allergy/AdvReac Type Severity Reaction Status Date / Time labetalol AdvReac Intermediate nausea and Verified 04/16/23 17:48 vomiting lisdexamfetamine (From AdvReac Intermediate hypertensio Verified 04/16/23 17:48 Vyvanse) n prednisone AdvReac Intermediate It makes Verified 04/16/23 17:48 me feel weird codeine AdvReac Mild Nausea Verified 04/16/23 17:48 morphine AdvReac Mild Nausea Verified 04/16/23 17:48 tramadol HCl (From Ultram) AdvReac Mild Nausea Verified 04/16/23 17:48 cariprazine (From Vraylar) AdvReac Unknown vomiting Verified 04/16/23 17:48 tamsulosin (From Flomax) AdvReac light Verified 04/16/23 17:48 headed/dizzy tegaderm tape AdvReac Intermediate ariza my Uncoded 04/16/23 17:48 skin General Stated Complaint: Abd Prob JOEL: 3 Exam Narrative Exam Narrative: Review of Systems: All systems reviewed & are unremarkable except as noted in HPI and below Well-developed, no acute distress NCAT PERRL, normal conjunctiva Moist mucous membranes RRR no murmur Unlabored respiratory effort clear bilaterally Nondistended abdomen soft generalized tenderness no guarding or rebound Extremities w/o deformity, no cyanosis, no edema No rashes or lesions. no focal neurologic deficits Appropriate mood and affect Course Vital Signs Vital signs: Vital Signs Temperature 36.9 C 09/30/23 16:45 Pulse 104 H 09/30/23 16:45 Respiratory Rate 16 09/30/23 16:45 Blood Pressure 169/111 H 09/30/23 16:45 Pulse Oximetry 98 09/30/23 16:45 Temperature 36.9 C 09/30/23 16:45 Temperature Source Temporal Artery Scan 09/30/23 16:45 Pulse 82 09/30/23 19:16 Pulse 84 09/30/23 19:20 Respiratory Rate 16 09/30/23 19:20 Respiratory Effort Normal, Non-Labored 09/30/23 17:29 Blood Pressure 147/95 H 09/30/23 19:16 Blood Pressure Mean 112 09/30/23 19:16 Blood Pressure Position Sitting 09/30/23 16:45 Pulse Oximetry 97 09/30/23 19:20 Oxygen Delivery Method Room Air 09/30/23 16:45 Oxygen Flow Rate 0 09/30/23 16:45 Pain Level 8 09/30/23 16:45 Lab/Test Results Lab/Test Results: Laboratory Tests Range/Units 09/30/23 09/30/23 09/30/23 17:05 17:12 17:35 WBC (4.4-10.8) 10^3/uL 10.15 RBC (3.93-5.22) 10^6/uL 4.78 Hgb (11.2-15.7) g/dL 14.8 Hct (36.0-46.0) % 44.3 MCV (80-95) fL 93 MCH (27.0-33.0) pg 31.0 MCHC (32.0-36.0) % 33.4 RDW (11.7-14.6) % 13.1 Plt Count (130-400) 10^3/uL 323 MPV (8.0-11.0) fL 9.8 Immature Gran % % 0.3 Neutrophils % % 61.2 Lymphocytes % % 28.6 Monocytes % % 5.5 Eosinophils % % 3.5 Basophils % % 0.9 Nucleated RBC % (0.0-0.3) % 0.0 Absolute Neutrophils (1.2-6.7) 10^3/uL 6.21 Absolute Lymphocytes (1.2-3.4) 10^3/uL 2.90 Absolute Monocytes (0.1-0.8) 10^3/uL 0.56 Absolute Eosinophils (0.0-0.7) 10^3/uL 0.36 Absolute Basophils (0.0-0.2) 10^3/uL 0.09 VBG Lactate (0.6-1.4) mmol/L 2.5 H* Sodium (136-145) mmol/L 138 Potassium (3.5-5.1) mmol/L 3.8 Chloride (98-107) mmol/L 101 Carbon Dioxide (21.0-32.0) mmol/L 25.4 Anion Gap (3-11) mmol/L 11.6 H BUN (7-18) mg/dL 14 Creatinine (0.55-1.02) mg/dL 1.3 H Est GFR (CKD-EPI 2020) (mL/min/1.73m2) 51.68 Glucose (74-106) mg/dL 160 H Calcium (8.5-10.1) mg/dL 9.6 Total Bilirubin (0.2-1.0) mg/dL 0.32 AST (15-37) U/L 33 ALT (14-59) U/L 42 Alkaline Phosphatase (46-116) U/L 164 H Total Protein (6.4-8.2) g/dL 8.5 H Albumin (3.4-5.0) g/dL 4.0 Procalcitonin ng/mL < 0.1 Urine Color (Yellow) Yellow Urine Clarity (Clear) Clear Urine pH (5-8) 5.5 Ur Specific [place] (1.005-1.025) 1.020 Urine Protein (Neg-Trace) mg/dL 100 H Urine Ketones (Negative) mg/dL Negative Urine Blood (Negative) Negative Urine Nitrite (Negative) Negative Urine Bilirubin (Negative) Negative Urine Urobilinogen (Up to 0.2) mg/dL 0.2 Ur Leukocyte Esterase (Negative) Negative Urine RBC (0-2) HPF Negative Urine WBC (0-5) HPF 0-2 Ur Epithelial Cells (Negative) HPF Many Urine Crystals (Negative) HPF Negative Urine Bacteria (Negative) HPF Rare Urine Casts (Negative) LPF Negative Urine Mucus (Negative) Negative Ur Culture Indicated? No/Sq. Contamination Urine Glucose (Negative) mg/dL Negative Medical Decision Making Emergent evaluation of right lower quadrant abdominal pain. Symptoms have been constant for 2 weeks. Not associated with fever. Patient has had multiple abdominal surgeries and does not have an appendix, ovaries or uterus. This does put her at higher risk for bowel obstruction. However her abdomen is soft, she did have a bowel movement yesterday and reports passing gas today. Plan for evaluation with lab work. Plan for pain control and IV fluids. Lab work reviewed. White blood cell count is not elevated. No anemia. No thrombocytopenia. Creatinine is at baseline of 1.3. No significant derangement in liver function testing. The urinalysis does not have evidence of infection. Her procalcitonin is negative. Her lactic acid is elevated at 2.5. This does increase my suspicion and concern for possible bowel obstruction or bowel ischemia. However at this time the patient is being evaluated during CT downtime. I have advised the patient that she will need transfer to outside hospital for further evaluation and CT imaging. We have attempted to make phone calls for a transfer, however the patient would like to leave at this time. She has been advised that she will be leaving AGAINST MEDICAL ADVICE. I had a long discussion with the patient regarding risks, benefits, and alternatives to my recommended treatment plan, which includes continued IV fluid resuscitation, pain control and transfer for CT imaging and the patient declined, voicing understanding of the risks but preferring instead to leave against medical advice. Some of the risks we specifically discussed included permanent disability or . I discussed with the patient that they were always welcome back to this department should they change their mind, and that regardless they should follow up with their primary care doctor at the soonest possible opportunity. All questions were answered and the patient left AMA in unchanged condition. Medical Records Medical records reviewed: Yes I reviewed the patient's medical records. Lab Data Lab results reviewed: Yes I reviewed the patient's lab results. Quality:[facility] Health Related Social Needs: No Data to Display PFSH All Active Problems Abdominal pain (Acute) Right foot pain (Acute) Postoperative pain (Acute) S/P laparoscopic assisted vaginal hysterectomy (LAVH) (Acute) Bilateral kidney stones (Acute) 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 L>R side. Normal CT & u/s of abdomen and pelvis. 05/01/21. Rx Cipro and Flagyl times 2W Constipation (Acute) Bipolar 1 disorder (Chronic) Borderline personality disorder (Acute) ANN (obstructive sleep apnea) (Chronic) Chronic GERD (Chronic) Acute diarrhea (Acute) Colitis (Acute) DVT prophylaxis (Acute) Medical History ASCUS with positive high risk HPV 09/2020. Patient needs colposcopy Snoring Spasm of back muscles Cervical disc disorder with radiculopathy Calculus of kidney and ureter Irritable bowel syndrome with diarrhea Pain in pelvis Amnesia Pt. states when she gets too stressed out she blacks out, Last one was months ago' Seizure (~04/14/18) Pt. stated she had one one time 5 years ago, and has never had once since Human papilloma virus (HPV) DNA test positive History of urinary stone Medication monitoring encounter Atypical squamous cells of undetermined significance with positive high risk human papillomavirus GERD (gastroesophageal reflux disease) Asthma Carpal tunnel syndrome Insomnia Nicotine dependence ASCUS with positive high risk HPV 09/2020. Will f/u at [facility] for colposcopy after issue with RLQ pain is addressed. Preop examination Post-cholecystectomy syndrome post casey diarrhea Adnexal mass Elevated fasting blood sugar Seizure disorder IBS (irritable bowel syndrome) PTSD (post-traumatic stress disorder) Psychophysiologic disorder Medication management Median nerve compression in left forearm Right ureteral stone Abdominal pain Knee pain Cervical disc disease Right arm weakness Chest pain at rest pt. denies this Active asthma Rectal bleeding Ureteral calculi Left-sided thoracic back pain Neuralgia Kidney stones Migraines Gastritis Conversion disorder tremor, stutter, weakness Carcamo sign present ADD (attention deficit disorder) Memory loss Amenorrhea Upper respiratory infection pt. denies this Dizziness Cold sore Numbness and tingling Causalgia of left upper extremity Essential tremor CVA tenderness Hydronephrosis Chronic wrist pain Surgical History H/O left knee surgery History of colonoscopy (~07/09/20) H/O ovarian cystectomy 10/18/2020. Laparoscopic right ovarian cystectomy for persistent 4 cm right ovarian cyst. History of carpal tunnel surgery of left wrist Carpal tunnel syndrome, left s/p left ECTR DOS: 01/23/20 S/P cholecystectomy S/P appendectomy S/P knee surgery Repair of umbilical hernia Family History Father Cerebral aneurysm Social History Smoking/Tobacco Use Status: Current every day Tobacco Type: cigarettes Smoking packs per day: 0.5 Smoking cigarettes per day: 10.0 Years smoked: 30 Smoking pack-years: 15.00 Smokeless tobacco user: other Quit status: has quit before Smoking risk assessment performed?: Yes Alcohol Intake: never Drug use: Never Substance use type: does not use Household members: significant other and other Details: BF-Tanner. S-Chance. Moved to [place] 2mo ago to be w/ GF. Number of Children: 1 current occupation: Unemployed secondary to disability Current gender identity: female Do you feel safe at home: Yes Do you feel safe in your relationship?: Yes Female Reproductive History Menstrual Duration of menses: 3-5 days (Average flow minimal dysmenorrhea) control method: none
== END 2023-09-30 19:27 | disposition left against medical advice (07) ==
PROVIDERS: Emergency Provider Emergency Medicine; PCP Physician Assistant Medical
DX: R10.31 Right lower quadrant pain (principal); R11.0 Nausea; Z85.43 Personal history of malignant neoplasm of ovary; Z53.29 Procedure and treatment not carried out because of patient's decision for other reasons
CPT/HCPCS: 36415; 80053; 84145; 96361; 96374; 96375; 99284; 81003; 81015; 83605; 85025; 99283; J1790; J1885; J2405

== ENCOUNTER 2024-02-10 01:31 | Outpatient (CLI) | payer MEDICAID, SELFPAY ==
--- NOTE | 2024-02-10 10:50 | DI.MRI_ITS ---
Exam(s) MR CERVICAL SPINE WO EXAM: MR CERVICAL SPINE WO CLINICAL HISTORY: Cervical disc disorder with radiculopathy, unspecified cervical region, TECHNIQUE: Multiplanar multisequence MRI of the cervical spine was performed without intravenous con trast. COMPARISON: MR MR CERVICAL SPINE WO from 01/31/2019 FINDINGS: Exam is mildly limited by motion. BONES: Vertebral body heights are maintained. Alignment is normal. Bone marrow signal intensity is wi thin normal limits. CERVICAL CORD: Craniovertebral junction is unremarkable. The cervical cord is normal size and signal intensity. SOFT TISSUES: Unremarkable. C2-3: No disc herniation or bulge is identified. No evidence of neural foraminal narrowing. No signi ficant central canal stenosis. C3-4: No disc herniation or bulge is identified. No evidence of neural foraminal narrowing. No signif icant central canal stenosis. C4-5: No disc herniation or bulge is identified. No evidence of neural foraminal narrowing. No signif icant central canal stenosis. C5-6: Mild loss of disc height. Circumferentially projecting disc osteophytes. No focal disc hernia tion. There is narrowing of the AP dimension of the central canal causing mild central canal stenosi s. No definite impingement on the cord. Moderate to severe bilateral neural foraminal narrowing. C6-7: Minimal disc bulging. No evidence of neural foraminal narrowing. No significant central canal stenosis. C7-T1: Minimal disc bulging.. No evidence of neural foraminal narrowing. No significant central nixon l stenosis. IMPRESSION: Degenerative disc changes at C5-6 cause mild central canal stenosis and moderate to severe bilateral neural foraminal narrowing. DATA REPOSITORY:
== END 2024-02-10 01:51 ==
LOC: DI 01:31
PROVIDERS: PCP Physician Assistant Medical; Visit Provider Family Medicine
DX: M48.02 Spinal stenosis, cervical region (principal); M99.61 Osseous and subluxation stenosis of intervertebral foramina of cervical region
CPT/HCPCS: 72141

== ENCOUNTER 2024-05-16 10:56 | Emergency (ER) | payer MEDICAID, SELFPAY ==
[2024-05-16 11:22] VITALS: BP 174/136; PULSE 113; RESP 15; TEMP 36.7; O2SAT 96
--- NOTE | 2024-05-16 13:17 | ED.GENADUL_ITS ---
Discharge Plan Disposition Patient Disposition: Home Condition: Stable Discharge Details Clinical Impression: Right flank pain Primary Care Provider: Elizabeth Benton ED Provider: Rufus Sinclair Home Meds and New Rx's Prescriptions: New prochlorperazine maleate [Compazine] 10 mg tablet 10 mg PO TID PRN (Reason: nausea and vomiting) Qty: 30 0RF Continued amitriptyline 25 mg tablet 25 mg PO HS chlorthalidone 25 mg tablet 25 mg PO DAILY Qty: 90 3RF naloxone [Narcan] 4 mg/actuation spray,non-aerosol 1 spray LOGAN ONCE PRN fluticasone propionate [Flovent HFA] 44 mcg/actuation HFA aerosol inhaler 2 puff inhalation BID Rx Instructions: administer with spacer verapamil 120 mg tablet 120 mg PO Q12H omeprazole 40 mg capsule,delayed release(DR/EC) 40 mg PO DAILY metoprolol succinate 100 mg tablet extended release 24 hr 100 mg PO DAILY metformin 500 mg tablet extended release 24 hr 500 mg PO DAILY colchicine 0.6 mg capsule 0.6 mg PO BID oxycodone 5 mg tablet 5 mg PO 5X/DAY Patient Comments: TAKE 2 TABLETS BY MOUTH FIVE TIMES DAILY lamotrigine 150 mg tablet 200 mg PO HS Patient Comments: TAKE 1 TABLET BY MOUTH EVERY DAY AT BEDTIME pantoprazole 40 mg tablet,delayed release (DR/EC) 40 mg PO DAILY Patient Comments: TAKE 1 TABLET BY MOUTH ONCE DAILY albuterol sulfate [ProAir HFA] 90 mcg/actuation HFA aerosol inhaler 2 puff INHALATION PRN PRN Patient Comments: INL 2 PFS PO Q 4 H PRN ondansetron 4 mg tablet,disintegrating 4 mg PO Q8H PRN (Reason: nausea and vomiting) Qty: 30 0RF estradiol 1 mg tablet 1 mg PO DAILY Patient Comments: TAKE 1 TABLET BY MOUTH DAILY potassium 20 mg tablet,chewable 200 mg PO DAILY quetiapine 100 mg tablet 100 mg PO DAILY Patient Comments: TAKE 1 TABLET BY MOUTH EVERY NIGHT AT BEDTIME Jardiance 10 mg tablet 10 mg PO DAILY Patient Comments: TAKE 1 TABLET BY MOUTH EVERY MORNING EXPECT 25 MG AFTER WE KNOW SHE IS TOLERATING THE 10 MG Discharge Instructions Additional Instructions: Your blood work and CAT scan did not show any concerning findings at this time. Follow-up with your primary care provider if you not improving within a week. If you feel more ill or have persistent vomiting despite the medication or high fevers return to the emergency department for reevaluation HPI General Mode of arrival: ambulatory . Date/Time Provider Initiated Documentation: 05/16/24 11:31 . Limitations to Documentation: no limitations . Information obtained by: patient . History of Present Illness 44 year old F presents to the emergency department with the chief complaint of right flank pain, described as moderate, Quality is described as sharp, and is localized to the back and abdomen. Patient started experiencing this day(s) (5) and it has been constant. No relieving factors improve symptom(s), No exacerbating factors reported . Patient notes nausea/vomiting; denies fever/chills. Patient did receive the following treatments prior to arrival, none Related Data Home Medications ?Medication ?Instructions ?Recorded ?Confirmed naloxone 4 mg/actuation nasal 1 spray intranasal ONCE PRN 04/19/18 05/16/24 spray (Narcan) amitriptyline 25 mg tablet 25 mg PO HS 04/18/20 05/16/24 albuterol sulfate 90 mcg/actuation 2 puff inhalation PRN PRN 05/14/20 05/16/24 aerosol inhaler (ProAir HFA) pantoprazole 40 mg tablet,delayed 40 mg PO DAILY 05/14/20 05/16/24 release fluticasone propionate 44 2 puff inhalation BID 06/21/20 05/16/24 mcg/actuation HFA aerosol inhaler (Flovent HFA) oxycodone 5 mg tablet 5 mg PO 5X/DAY 11/19/20 05/16/24 lamotrigine 150 mg tablet 200 mg PO HS 12/07/20 05/16/24 chlorthalidone 25 mg tablet 25 mg PO DAILY #90 tabs 12/31/21 05/16/24 ondansetron 4 mg disintegrating 4 mg PO Q8H PRN nausea and 09/15/22 05/16/24 tablet vomiting #30 tabs estradiol 1 mg tablet 1 mg PO DAILY 11/21/22 05/16/24 potassium 20 mg chewable tablet 200 mg PO DAILY 03/16/23 05/16/24 colchicine 0.6 mg capsule 0.6 mg PO BID 06/19/23 05/16/24 metformin 500 mg tablet,extended 500 mg PO DAILY 06/19/23 05/16/24 release 24 hr metoprolol succinate 100 mg 100 mg PO DAILY 06/19/23 05/16/24 tablet,extended release 24 hr omeprazole 40 mg capsule,delayed 40 mg PO DAILY 06/19/23 05/16/24 release verapamil 120 mg tablet 120 mg PO Q12H 06/19/23 05/16/24 empagliflozin 10 mg tablet 10 mg PO DAILY 05/16/24 05/16/24 (Jardiance) prochlorperazine maleate 10 mg 10 mg PO TID PRN nausea and 05/16/24 tablet (Compazine) vomiting #30 tabs quetiapine 100 mg tablet 100 mg PO DAILY 05/16/24 05/16/24 Previous Rx's ?Medication ?Instructions ?Recorded chlorthalidone 25 mg tablet 25 mg PO DAILY #90 tabs 12/31/21 ondansetron 4 mg disintegrating 4 mg PO Q8H PRN nausea and 09/15/22 tablet vomiting #30 tabs prochlorperazine maleate 10 mg 10 mg PO TID PRN nausea and 05/16/24 tablet (Compazine) vomiting #30 tabs Allergies Allergy/AdvReac Type Severity Reaction Status Date / Time labetalol AdvReac Intermediate nausea and Verified 05/16/24 11:25 vomiting lisdexamfetamine (From AdvReac Intermediate hypertensio Verified 05/16/24 11:25 Vyvanse) n prednisone AdvReac Intermediate It makes Verified 05/16/24 11:25 me feel weird codeine AdvReac Mild Nausea Verified 05/16/24 11:25 morphine AdvReac Mild Nausea Verified 05/16/24 11:25 tramadol HCl (From Ultram) AdvReac Mild Nausea Verified 05/16/24 11:25 cariprazine (From Vraylar) AdvReac Unknown vomiting Verified 05/16/24 11:25 tamsulosin (From Flomax) AdvReac light Verified 05/16/24 11:25 headed/dizzy tegaderm tape AdvReac Intermediate ariza my Uncoded 05/16/24 11:25 skin General Stated Complaint: Urinary JOEL: 3 Review of Systems All systems reviewed & are unremarkable except as noted in HPI and below Constitutional Constitutional: Denies chills, Denies fever(s) and Denies weakness Cardiovascular Cardiovascular: Denies chest pain and Denies dyspnea Respiratory Respiratory: Denies cough and Denies dyspnea Gastrointestinal Gastrointestinal: Reports abdominal pain, Reports nausea and Reports vomiting Genitourinary Genitourinary: Reports dysuria Neurologic Neurologic: Denies weakness Exam Const General: no acute distress Orientation: alert [facility] Head: normal to inspection Ears: external ears normal General nose exam: external nose normal Mouth: moist mucous membranes Eyes General: appearance normal, both eyes and all related structures Neck Neck: normal visual inspection Resp Effort & Inspection: normal respiratory effort and able to speak in complete sentences Cardio Rate: regular rate GI Palpation: soft and tender Skin General skin exam: no rashes or lesions noted Neuro General: patient alert and patient oriented x3 Extrem General: normal to inspection Psych Mental Status: mental status grossly normal Course Vital Signs Vital signs: Vital Signs Temperature 36.7 C 05/16/24 11:22 Pulse 113 H 05/16/24 11:22 Respiratory Rate 15 05/16/24 11:22 Blood Pressure 174/136 H 05/16/24 11:22 Pulse Oximetry 96 05/16/24 11:22 Temperature 36.7 C 05/16/24 11:22 Pulse 113 H 05/16/24 11:22 Respiratory Rate 15 05/16/24 11:22 Blood Pressure 174/136 H 05/16/24 11:22 Blood Pressure Position Sitting 05/16/24 11:22 Pulse Oximetry 96 05/16/24 11:22 Oxygen Delivery Method Room Air 05/16/24 11:22 Oxygen Flow Rate 0 05/16/24 11:22 Medical Decision Making 44-year-old female who states she has a history of prior kidney stones and also UTIs comes in with 5 days of painful urination and right back and oblique area pain. Also also had nausea and vomiting. Denies any chest pain, fevers, chills. Denies any vaginal bleeding or discharge. She is stable on arrival. She is tenderness in the right oblique and the right lower back. No saddle anesthesia. No CVA tenderness. No peritoneal signs or abdomen. Given her location of the pain and her history we will check CBC, CMP UA and CT renal colic. Patient stable and pain is resolved. CT shows no significant acute findings as chronic findings I discussed with her including her enlarged liver. 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 L>R side. Normal CT & u/s of abdomen and pelvis. 05/01/21. Rx Cipro and Flagyl times 2W Constipation (Acute) Bipolar 1 disorder (Chronic) Borderline personality disorder (Acute) ANN (obstructive sleep apnea) (Chronic) Chronic GERD (Chronic) Acute diarrhea (Acute) Colitis (Acute) DVT prophylaxis (Acute) Medical History ASCUS with positive high risk HPV 09/2020. Patient needs colposcopy Snoring Spasm of back muscles Cervical disc disorder with radiculopathy Calculus of kidney and ureter Irritable bowel syndrome with diarrhea Pain in pelvis Amnesia Pt. states when she gets too stressed out she blacks out, Last one was months ago' Seizure (~04/14/18) Pt. stated she had one one time 5 years ago, and has never had once since Human papilloma virus (HPV) DNA test positive History of urinary stone Medication monitoring encounter Atypical squamous cells of undetermined significance with positive high risk human papillomavirus GERD (gastroesophageal reflux disease) Asthma Carpal tunnel syndrome Insomnia Nicotine dependence ASCUS with positive high risk HPV 09/2020. Will f/u at [facility] for colposcopy after issue with RLQ pain is addressed. Preop examination Post-cholecystectomy syndrome post casey diarrhea Adnexal mass Elevated fasting blood sugar Seizure disorder IBS (irritable bowel syndrome) PTSD (post-traumatic stress disorder) Psychophysiologic disorder Medication management Median nerve compression in left forearm Right ureteral stone Abdominal pain Knee pain Cervical disc disease Right arm weakness Chest pain at rest pt. denies this Active asthma Rectal bleeding Ureteral calculi Left-sided thoracic back pain Neuralgia Kidney stones Migraines Gastritis Conversion disorder tremor, stutter, weakness Carcamo sign present ADD (attention deficit disorder) Memory loss Amenorrhea Upper respiratory infection pt. denies this Dizziness Cold sore Numbness and tingling Causalgia of left upper extremity Essential tremor CVA tenderness Hydronephrosis Chronic wrist pain Surgical History H/O left knee surgery History of colonoscopy (~07/09/20) H/O ovarian cystectomy 10/18/2020. Laparoscopic right ovarian cystectomy for persistent 4 cm right ovarian cyst. History of carpal tunnel surgery of left wrist Carpal tunnel syndrome, left s/p left ECTR DOS: 01/23/20 S/P cholecystectomy S/P appendectomy S/P knee surgery Repair of umbilical hernia Family History Father Cerebral aneurysm Social History Smoking/Tobacco Use Status: Current every day Tobacco Type: cigarettes Smoking packs per day: 0.5 Smoking cigarettes per day: 10.0 Years smoked: 30 Smoking pack-years: 15.00 Smokeless tobacco user: other Quit status: has quit before Smoking risk assessment performed?: Yes Alcohol Intake: never Drug use: Never Substance use type: does not use Household members: significant other and other Details: BF-Tanenr. S-Chance. Moved to [place] 2mo ago to be w/ GF. Number of Children: 1 current occupation: Unemployed secondary to disability Current gender identity: female Do you feel safe at home: Yes Do you feel safe in your relationship?: Yes Female Reproductive History Menstrual Duration of menses: 3-5 days (Average flow minimal dysmenorrhea) control method: none
[2024-05-16 13:20] LABS: Abs Immature Grans 0.06 10^3/uL (0.0-0.06); Absolute Basophil Count 0.08 10^3/uL (0.0-0.2); Absolute Eosinophil Count 0.32 10^3/uL (0.0-0.7); Absolute Monocyte Count 0.68 10^3/uL (0.1-0.8); Absolute Neutrophil Count 7.84 10^3/uL (1.2-6.7); Basophils % 0.7 %; Eosinophils % 2.7 %; HCT 45.2 % (36.0-46.0); HGB 14.7 g/dL (11.2-15.7); Immature Grans % 0.5 %; Lymphocytes % 23.1 %; MCH 29.8 pg (27.0-33.0); MCHC 32.5 % (32.0-36.0); MCV 92 fL (80-95); Monocytes % 5.8 %; Neutrophils % 67.2 %; Platelet Count 375 10^3/uL (130-400); RBC 4.93 10^6/uL (3.93-5.22); RDW 12.6 % (11.7-14.6); RDW-SD 42.4 fL; WBC 11.67 10^3/uL (4.4-10.8)
[2024-05-16 13:41] LABS: ALT 71 U/L (14-59); AST 135 U/L (15-37); Albumin 3.8 g/dL (3.4-5.0); Alkaline Phosphatase 220 U/L (46-116); BUN 20 mg/dL (7-18); Bilirubin, Total 0.3 mg/dL (0.2-1.0); CREATININE 1.5 mg/dL (0.55-1.02); Calcium 10.1 mg/dL (8.5-10.1); Chloride 98 mmol/L (98-107); Estimated GFR 43.25 (mL/min/1.73m2); Glucose 291 mg/dL (74-106); Potassium 4.2 mmol/L (3.5-5.1); Sodium 138 mmol/L (136-145); Total Protein 8.8 g/dL (6.4-8.2)
[2024-05-16] MEDS: Ketorolac 15 MG/ML VIAL IVP (13:51)
[2024-05-16] MEDS: Prochlorperazine 10 MG/2 ML VIAL IVP (13:51)
[2024-05-16 13:57] VITALS: BP 164/82; PULSE 92
[2024-05-16 14:20] LABS: Bilirubin Negative (Negative); Blood Trace-intact (Negative); Clarity Clear (Clear); Glucose >=1000 mg/dL (Negative); Ketones Negative (Negative); Leukocyte Esterase Negative (Negative); Nitrite Negative (Negative); Urobilinogen 0.2 mg/dL (Up to 0.2); pH 5.5 (5-8)
[2024-05-16 14:40] LABS: Bacteria Negative HPF (Negative); C & S Indicated? No; Casts Negative LPF (Negative); Crystals Negative HPF (Negative); Epithelial Cells Moderate HPF (Negative); Mucus Trace (Negative); Other Cells Negative (Negative); RBC 0-2 HPF (0-2); WBC Negative HPF (0-5)
--- NOTE | 2024-05-16 15:31 | DI.CT_ITS ---
Exam(s) CT RENAL COLIC WO EXAM: CT RENAL COLIC WO x CLINICAL HISTORY: right flank pain. TECHNIQUE: Imaging Protocol: Axial computed tomography images with coronal and sagittal reformatted images were created and reviewed CONTRAST MATERIAL: Intravenous: none Oral: None COMPARISON: CT CT ABDOMEN PELVIS W from 04/16/2023 FINDINGS: VISUALIZED LUNG BASES: Mild increased markings are noted in the medial segment of the right middle lo be. There are no pleural effusions.. ABDOMEN: There is no ascites. LIVER: There is hepatomegaly and severe hepatic steatosis noted.. There is uniformly hyperdense lesio n right hepatic lobe again noted which is unchanged from CT scan of 04/16/2023, not increased in size . This is either an area of focal fatty sparing or hemangioma. Another similar but smaller finding in the right hepatic lobe is again noted. There are no new additional liver lesions evident. GALLBLADDER/BILIARY: The gallbladder is again noted to be surgically absent. CBD is not dilated. PANCREAS: No evidence of pancreatic mass nor dilatation of the pancreatic duct. SPLEEN: Spleen is not enlarged. No obvious intrasplenic lesions. ADRENALS: Right adrenal gland unremarkable. Small nodule again noted in the left adrenal gland for ag ain noted, again unchanged from 2020 and therefore probably a benign adenoma. KIDNEYS:Right kidney un remarkable. There is a punctate 1-2 mm calculus in superior pole calyx of the left kidney, not previously present. There is no hydronephrosis nor hydroureter. No solid renal mass es. No cysts. There are no radiopaque calculi in the nondistended urinary bladder.. ABDOMINAL AORTA: Abdominal aorta is not enlarged. LYMPH NODES: There is no retroperitoneal nor paraaortic adenopathy. ABDOMINAL WALL: No evidence of significant anterior abdominal wall nor inguinal hernia. GI: There is no evidence of bowel obstruction, free air, nor abscess. PELVIS: LYMPH NODES: There is no intrapelvic nor inguinal adenopathy. GI: The appendix is again noted be surgically absent.In there is no significant sigmoid diverticular disease. URINARY BLADDER: No calculi nor obvious masses evident REPRODUCTIVE: Uterus is again noted be surgically absent. There are no abnormal adnexal masses and no free fluid in the pelvis. OSSEOUS: No significant osseous lesions. No fractures. IMPRESSION: 1. Compared to the prior CT scan of April 2023 there is again noted evidence of prior cholecystect divina, appendectomy, and hysterectomy. 2. There is no evidence of bowel obstruction, free air, abscess, nor ascites. 3. The liver is again noted be significantly enlarged and quite hypodense implying steatosis. There i s an unchanged benign-appearing relatively hyperdense lesion in the right hepatic lobe which appears unchanged from 1 year ago and is probably either focal fatty parenchymal sparing or a benign hemangio ma. 4. Continued stability of small left adrenal nodule which is unchanged from 2020 and therefore most l ikely a small benign adenoma. The opposite-right adrenal gland remains unremarkable. 5. There is a punctate 1-2 mm solitary calculus in the superior pole calyx of the left kidney, not pr eviously present. No associated hydronephrosis nor hydroureter no solid renal masses nor significant cysts. Report called by myself to ER physician 05/16/2024 at 3:56 p.m. RADIATION DOSE DELIVERED: 790.88mGy.cm Total DLP DATA REPOSITORY: All CT scans at this facility are submitted to the National Radiology Data Registry (NRDR) Dose Index Registry (DIR) with the [employer] (A[employer]). RADIATION OPTIMIZATION: All CT scans at this facility use at least one of these dose optimization te chniques: automated exposure control; mA and/or kV adjustment per patient size (includes targeted exa ms where dose is matched to clinical indication); or iterative reconstruction.
[2024-05-16 16:27] VITALS: BP 168/109; PULSE 78; RESP 18; TEMP 36.9; O2SAT 99
== END 2024-05-16 16:27 | disposition home or self-care (01) ==
PROVIDERS: Physician Assistant; Emergency Provider Emergency Medicine; PCP Physician Assistant Medical
DX: N20.0 Calculus of kidney (principal); I10 Essential (primary) hypertension; F17.210 Nicotine dependence, cigarettes, uncomplicated; Z90.49 Acquired absence of other specified parts of digestive tract; Z90.710 Acquired absence of both cervix and uterus
CPT/HCPCS: 80053; 96374; 96375; 99284; 74176; 81003; 81015; 85025; J0780; J1885

== ENCOUNTER 2024-07-21 16:17 | Outpatient (CLI) | payer MEDICAID, SELFPAY ==
[2024-07-21 15:52] LABS: Carboxyhemoglobin 1.4 % (0.5-1.5)
== END 2024-07-21 16:18 | disposition home or self-care (01) ==
LOC: LBO 16:18
PROVIDERS: PCP Physician Assistant Medical; Visit Provider Neurological Surgery
DX: M54.12 Radiculopathy, cervical region (principal)
CPT/HCPCS: 36415; 82375

== ENCOUNTER 2024-10-18 14:36 | Outpatient (CLI) | payer MEDICAID, SELFPAY ==
--- NOTE | 2024-10-18 | DI.CT_ITS ---
Exam(s) CT ABDOMEN PELVIS WO/W EXAM: CT ABDOMEN PELVIS WO/W CLINICAL HISTORY: R10.30 New RLQ pain, HX stage llb mixed serous/mucinous borderline tumor TECHNIQUE: Imaging Protocol: Axial computed tomography images with coronal and sagittal reformatted images were created and reviewed. CONTRAST MATERIAL: Intravenous: Omnipaque 350 Contrast volume:100 mL Oral: Yes COMPARISON: CT CT RENAL COLIC WO from 05/16/2024 FINDINGS: ABDOMEN: Lung Bases: No acute abnormality. Liver: There is diffuse decreased attenuation of the liver suggesting fatty infiltration. There are 2 well-circumscribed hyperdense lesions in the liver 1 measures 1.2 x 1.6 cm (series 15, image 30. The 2nd lesion measures 0.7 x 1.2 cm (series 15, image 20). The both lie in the right lobe of the liver. There are no new hepatic lesions identified. The liver is enlarged. Portal, Superior Mesenteric, and Splenic Veins: Unremarkable. Gallbladder and Biliary Tract: Status post cholecystectomy. There is no significant biliary ductal dilatation. Pancreas: Normal density, no abnormal calcifications or inflammatory process. Spleen: Normal. Adrenals: There is stable mild nodularity of the left adrenal gland. The right adrenal gland is unremarkable. Kidneys: Normal size, contour and axis. There is a nonobstructing 2 mm stone in the upper pole of the left kidney. No masses seen. Abdominal Aorta: Abdominal portion non-dilated. Bowel: No obstruction or bowel wall thickening. There are surgical clips seen in the cecum suggesting prior appendectomy. Peritoneal Cavity: No ascites, collection or mesenteric inflammatory response. No free air. Lymph Nodes: Within normal limits. Bones: Within normal limits for the patient's age. Soft Tissues: Unremarkable. PELVIS: Bladder: Symmetric distention, no gross wall thickening. Reproductive Organs: Status post hysterectomy. The ovaries are not visualized. Lymph Nodes: Within normal limits. Bones: Within normal limits for the patient's age. IMPRESSION: 1. Stable findings in the abdomen and pelvis since 05/16/2024. 2. Stable hepatic nodules. If further imaging is warranted, an MRI without and with contrast may be obtained. 3. Status post hysterectomy. The ovaries are not visualized. No evidence of an adnexal mass. 4. Stable hepatic steatosis and hepatomegaly. RADIATION DOSE DELIVERED: 2,228.64mGy.cm Total DLP 2,228.64mGy.cm Total DLP DATA REPOSITORY: All CT scans at this facility are submitted to the National Radiology Data Registry (NRDR) Dose Index Registry (DIR) with the [employer] (ACR). RADIATION OPTIMIZATION: All CT scans at this facility use at least one of these dose optimization techniques: automated exposure control; mA and/or kV adjustment per patient size (includes targeted exams where dose is matched to clinical indication); or iterative reconstruction.
[2024-10-18] MEDS: Barium Sulfate 2% W/V-Berry Smoothie 450 ML BTL PO ×2 (12:53→12:54)
[2024-10-18 13:12] LABS: Carboxyhemoglobin 1.6 % (0.5-1.5)
[2024-10-18 13:26] LABS: Estimated GFR 43.25 (mL/min/1.73m2)
[2024-10-18] MEDS: Omnipaque 350 MG/ML 100 ML BTL IJ (15:09)
[2024-10-18] MEDS: Normal Saline - Diluent 50 ML VIAL IJ (15:09)
[2024-10-18] MEDS: Normal Saline Flush 10 ML SYR IVP (15:10)
== END 2024-10-18 14:56 ==
PROVIDERS: Nurse Practitioner Women's Health; PCP Physician Assistant Medical; Visit Provider Physician Assistant Medical
DX: K76.0 Fatty (change of) liver, not elsewhere classified (principal); R16.0 Hepatomegaly, not elsewhere classified
CPT/HCPCS: 82375; 74178; 82565; J3490

== ENCOUNTER 2024-10-25 15:06 | Outpatient (CLI) | payer MEDICAID, SELFPAY ==
[2024-10-26 11:15] LABS: CA 19-9 <2 U/mL (<35)
[2024-10-26 11:39] LABS: CA 125 34 U/mL (<30)
== END 2024-10-25 15:07 | disposition home or self-care (01) ==
LOC: LBO 15:06
PROVIDERS: PCP Physician Assistant Medical; Visit Provider Nurse Practitioner Women's Health
DX: D39.10 Neoplasm of uncertain behavior of unspecified ovary (principal); R10.30 Lower abdominal pain, unspecified
CPT/HCPCS: 36415; 86304; 86301